=== PATIENT | female | born 1945 | race Caucasian/White ===

== ENCOUNTER → 2016-10-02 | Day surgery (SDC) | payer MEDICARE, OTHER ==
[~2016-10-02] VITALS: Ht 165.1 cm; Wt 108.0 kg
[~2016-10-02] MED LIST: ACET-71 PO; ACET30TAB PO; ALBU17IN INH; ALEV220T26 PO; ASPI32ECTA PO; ATEN50TA2 PO; AZO-95TA3 PO; BACITAB3 PO; BACT800T5 PO; BISA5TAB7 PO; CELE-19 PO; CIPR500T89 PO; CIPROFLOXACIN 400 MG in APPROPRIATE DILUENT 1 EA IV ONE; CONRAY-60 60% 50ML VIAL (Q9961) As Ordered ONE; CRAN250C2 PO; CRAN400C PO; CRANCAP PO; DESIOIN3 TOP; FURO20TA2 PO; GLYCOPYRROLATE INJ 0.2 MG/ML 2 ML VIAL As Ordered ONE; HYDROmorphone HCL 1 MG/ML SYRINGE (J1170) IV PRN; IBUPOTC PO; ICAPTAB8 PO; LASI20TA PO; LEVO150T7 PO; LIDOCAINE 2% INJ 100 MG/5 ML SDV (FOR ANES.) As Ordered ONE; LR 1,000 ML IV SCH; LUTE6TAB PO; MAPA325T2 PO; MELA1TAB15 PO; MELO7.5T6 PO; MIDAZOLAM INJ 2 MG/2 ML VIAL (J2250) As Ordered ONE; MOBI7.5T10 PO; NEOSTIGMINE 1MG/ML 5 ML SYRINGE (J2710) As Ordered ONE; NS 1,000 ML IV SCH; NYST10PW TOP; ONDANSETRON 4MG/2ML VIAL (J2405) As Ordered ONE; ONDANSETRON 4MG/2ML VIAL (J2405) IV PRN; PENT400T19 PO; PENT400T47 PO; PERCOCET 5MG/325MG TAB PO PRN; PERCOCET PO; PRESCAP6 PO; PROPOFOL 200 MG/20 ML VIAL As Ordered ONE; PYRI200T5 PO; ROCURONIUM BROMIDE 50 MG/5 ML VIAL As Ordered ONE; SENO8.6T2 PO; SYNT100T PO; SYNT175T2 PO; SYNT75TA PO; TYLETAB14 PO; Trental PO; VITA50003 PO; [UNRECOGNIZED DRUG - OTHER]; dexameTHASONE 4 MG/ML 1ML VIAL (J1100) As Ordered ONE; ePHEDrine SULFATE 25 MG/5 ML(5MG/ML) SYRINGE As Ordered ONE; fentaNYL 100 MCG/2 ML INJECTION (J3010) As Ordered ONE; fentaNYL 100 MCG/2 ML INJECTION (J3010) IV PRN
--- NOTE | 2016-10-02 09:34 | RO ---
DATE OF PROCEDURE: 10/02/2016 PREPROCEDURE DIAGNOSIS: Obstructing left ureteral stone. POSTPROCEDURE DIAGNOSIS: Obstructing left ureteral stone. PROCEDURE: Cystoscopy, left ureteroscopy with basket extraction of stone, left ureteral stent removal. SURGEON: Dr. Cm Salazar REFRIGERATION SYSTEMS INSTALLER: None. ANESTHESIA: General. OPERATIVE INDICATIONS: This is a 71-year-old female who was found to have an approximately 6 mm obstructing proximal left ureteral stone as well as possible urinary tract infection about a month and a half ago. She was brought to the operating room for a stent placement. She is brought here today to remove the stone. DESCRIPTION OF PROCEDURE: The patient was brought to the operating room where general anesthesia was induced. Prophylactic antibiotics were infused. She was then placed in dorsal lithotomy position and prepped and draped in the usual sterile fashion. A rigid cystoscope was then inserted into the urethral meatus and advanced into the bladder. The previously placed stent was then seen and withdrawn from the left ureter until the distal end of the stent was seen protruding from the urethral meatus. A wire was then advanced up the stent up into the left collecting system. The stent was then removed leaving the wire in place. The wire was then utilized to advance a ureteral access sheath up the left collecting system. The stylet was then removed and the wire was secured to the drape to serve as a safety wire. We then went up the ureteral access sheath with a flexible ureteroscope and the previously seen stone was actually pushed back up into the kidney. The kidney was thoroughly examined and no other stones were seen except for the 6 mm stone. The stone was then grasped with a basket and withdrawn from the left kidney. I once again examined the rest of the kidney and no additional stones were seen. The ureter appeared to be appropriately dilated and therefore the decision was made not to leave a stent. I then withdrew the ureteral access sheath along with the flexible ureteroscope and no additional stones were seen. The wire was then removed and the bladder emptied of all fluid. This marked the conclusion of the procedure. The patient was then taken out of dorsal lithotomy. The patient was awakened from anesthesia and transported to the recovery room in stable condition. ESTIMATED BLOOD LOSS: 0 mL. COMPLICATIONS: None. SPECIMEN: Left ureteral stone. PLAN: The patient will be seen in the clinic in 3-4 weeks for a postoperative visit and to discuss things that she can do to help prevent kidney stones. ITALOKisha
[2016-10-02 11:10] VITALS: BP 149/69
== END | disposition home or self-care (01) ==
LOC: M SDC 05:50
PROVIDERS: ATTEND Urology
DX: N20.1 Calculus of ureter (principal); I10 Essential (primary) hypertension; E78.00 Pure hypercholesterolemia, unspecified; E03.9 Hypothyroidism, unspecified; E66.9 Obesity, unspecified; M15.0 Primary generalized (osteo)arthritis; E55.9 Vitamin D deficiency, unspecified; L97.919 Non-pressure chronic ulcer of unspecified part of right lower leg with unspecified severity; I87.2 Venous insufficiency (chronic) (peripheral); R29.898 Other symptoms and signs involving the musculoskeletal system; M54.2 Cervicalgia; F41.9 Anxiety disorder, unspecified; R32 Unspecified urinary incontinence; Z88.0 Allergy status to penicillin; Z91.030 Bee allergy status; Z79.899 Other long term (current) drug therapy; Z79.82 Long term (current) use of aspirin; Z96.661 Presence of right artificial ankle joint; Z96.662 Presence of left artificial ankle joint; Z90.710 Acquired absence of both cervix and uterus; Z86.14 Personal history of Methicillin resistant Staphylococcus aureus infection; Z87.440 Personal history of urinary (tract) infections
CPT/HCPCS: 52352; 74420; 82360; 88300; J0744; J1100; J2250; J2405; J2710; J3010; Q9961

== ENCOUNTER → 2016-10-23 | Outpatient (REF) | payer MEDICARE, OTHER ==
[~2016-10-23] MED LIST changes: -CIPROFLOXACIN 400 MG in APPROPRIATE DILUENT 1 EA IV ONE; -CONRAY-60 60% 50ML VIAL (Q9961) As Ordered ONE; -GLYCOPYRROLATE INJ 0.2 MG/ML 2 ML VIAL As Ordered ONE; -HYDROmorphone HCL 1 MG/ML SYRINGE (J1170) IV PRN; -LIDOCAINE 2% INJ 100 MG/5 ML SDV (FOR ANES.) As Ordered ONE; -LR 1,000 ML IV SCH; -MIDAZOLAM INJ 2 MG/2 ML VIAL (J2250) As Ordered ONE; -NEOSTIGMINE 1MG/ML 5 ML SYRINGE (J2710) As Ordered ONE; -NS 1,000 ML IV SCH; -ONDANSETRON 4MG/2ML VIAL (J2405) As Ordered ONE; -ONDANSETRON 4MG/2ML VIAL (J2405) IV PRN; -PERCOCET 5MG/325MG TAB PO PRN; -PROPOFOL 200 MG/20 ML VIAL As Ordered ONE; -ROCURONIUM BROMIDE 50 MG/5 ML VIAL As Ordered ONE; -dexameTHASONE 4 MG/ML 1ML VIAL (J1100) As Ordered ONE; -ePHEDrine SULFATE 25 MG/5 ML(5MG/ML) SYRINGE As Ordered ONE; -fentaNYL 100 MCG/2 ML INJECTION (J3010) As Ordered ONE; -fentaNYL 100 MCG/2 ML INJECTION (J3010) IV PRN
== END ==
LOC: M LAB REF 12:53
PROVIDERS: ATTEND Surgery
DX: I87.312 Chronic venous hypertension (idiopathic) with ulcer of left lower extremity (principal)

== ENCOUNTER → 2016-11-05 | Outpatient (REF) | payer MEDICARE, OTHER | LOC: M SMT 15:05 | PROVIDERS: ATTEND Nurse Practitioner Family | DX: Z87.442 Personal history of urinary calculi (principal) ==

== ENCOUNTER → 2017-01-09 | Outpatient (REF) | payer MEDICARE, OTHER | LOC: M LAB REF 16:27 | PROVIDERS: ATTEND Surgery | DX: L97.229 Non-pressure chronic ulcer of left calf with unspecified severity (principal) ==

== ENCOUNTER → 2017-01-13 | Outpatient (REF) | payer MEDICARE, OTHER ==
[2017-01-13 20:23] LABS: BLOOD UREA NITROGEN 19 MG/DL (7-18); CREATININE FOR GFR 0.68 MG/DL (0.55-1.02); GLOMERULAR FILTRATION RATE > 60.0 (>39)
== END ==
LOC: M LAB REF 16:30
PROVIDERS: ATTEND Surgery
DX: I83.028 Varicose veins of left lower extremity with ulcer other part of lower leg (principal)

== ENCOUNTER → 2017-01-27 | Outpatient (REF) | payer MEDICARE, OTHER | LOC: M LAB REF 16:29 | PROVIDERS: ATTEND Surgery | DX: L97.221 Non-pressure chronic ulcer of left calf limited to breakdown of skin (principal) ==

== ENCOUNTER → 2017-02-06 | Outpatient (REF) | payer MEDICARE, OTHER | LOC: M LAB REF 16:14 | PROVIDERS: ATTEND Surgery | DX: I83.028 Varicose veins of left lower extremity with ulcer other part of lower leg (principal) ==

== ENCOUNTER → 2017-02-28 | Outpatient (REF) | payer MEDICARE, OTHER ==
[~2017-02-28] MED LIST changes: +AMBI10TA PO; +LEVO175T19 PO; +MELA5TAB21 PO; +MELO15TA4 PO
== END ==
LOC: M LAB REF 16:34
PROVIDERS: ATTEND Surgery
DX: R35.0 Frequency of micturition (principal)

== ENCOUNTER 2017-03-05 12:31 | Inpatient (IN) | payer MEDICARE, OTHER ==
[~2017-03-05] VITALS: Ht 162.6 cm; Wt 165.4 kg
[2017-03-05] MEDS: MULTIVITAMINS/MINERALS THERAP 1 TAB PO SCH (09:00)
[~2017-03-05 12:31] MED LIST changes: -AMBI10TA PO; -LEVO175T19 PO; -MELA5TAB21 PO; -MELO15TA4 PO
[2017-03-05] MEDS ORDERED: MEROPENEM INJ 2 GM in NS 100 ML IV SCH (13:45)
[2017-03-05] MEDS ORDERED: ALBUTEROL 90 MCG/ACT 8GM HFA INHALER INH PRN (13:45)
[2017-03-05 14:30] VITALS: BP 157/68
[2017-03-05 14:38] LABS: BASO % 0.7 % (0.0-1.0); EOS # 0.1 K/mm3 (0.0-0.50); EOS % 2.4 % (0.0-3.0); LARGE UNSTAINED CELL # 0.1 K/mm3 (0.0-0.4); LARGE UNSTAINED CELL % 1.9 % (0.0-4.0); LYMPH # 1.3 K/mm3 (1.5-4.5); LYMPH % 19.5 % (24.0-44.0); MEAN CORPUSCULAR HEMOGLOBIN 30.6 pg (27.0-33.0); MEAN CORPUSCULAR VOLUME 95.9 fl (80.0-96.0); MONO # 0.4 K/mm3 (0.0-0.8); MONO % 6.9 % (0.0-5.0); NEUTROPHILS % 68.5 % (36.0-66.0); PLATELET COUNT, AUTOMATED 297 k/mm3 (150-450); RED CELL DISTRIBUTION WIDTH 14.8 % (11.5-14.5); WHITE BLOOD COUNT 5.9 K/mm3 (4.0-10.0)
[2017-03-05] MEDS ORDERED: MELA5TAB21 PO (14:48)
[2017-03-05] MEDS ORDERED: LEVO175T19 PO (14:48)
[2017-03-05] MEDS ORDERED: AMBI10TA PO (14:48)
[2017-03-05] MEDS ORDERED: FURO20TA2 PO (15:00)
[2017-03-05] MEDS ORDERED: MELO15TA4 PO (15:00)
[2017-03-05 15:06] LABS: ANION GAP 4 MEQ/L (8-16); BLOOD UREA NITROGEN 28 MG/DL (7-18); CARBON DIOXIDE LEVEL 32 MEQ/L (21-32); CHLORIDE LEVEL 100 MEQ/L (98-107); CREATININE FOR GFR 0.89 MG/DL (0.55-1.02); GLOMERULAR FILTRATION RATE > 60.0 (>39); GLUCOSE, FASTING 130 MG/DL (83-110); POTASSIUM SERUM 4.4 MEQ/L (3.5-5.1); SODIUM LEVEL 136 MEQ/L (136-145)
[2017-03-05 15:08] LABS: ERYTHROCYTE SEDIMENTATION RATE 46 mm/hr (0-30)
--- NOTE | 2017-03-05 15:31 | CR ---
DATE OF CONSULTATION: 03/05/2017 CONSULTATION REPORT FOR: Dr. Hancock REASON FOR CONSULTATION: For evaluation of bilateral leg wounds. This is also a history and physical for the hospitalist service. HISTORY OF PRESENT ILLNESS: Stephanie is a pleasant, morbidly obese 71-year-old female who was referred to me by Dr. Hancock for evaluation of bilateral venous ulcers with chronic infection with Pseudomonas. The patient has had those ulcers for at least a couple years. She had been followed up with Dr. Alonso on a regular basis and was last seen on 01/01/2017. She had multiple different treatments done without improvement. She has been treated with compression wraps, application of EpiFix. The patient had wanted a second opinion and ended up going to Dr. Hancock's office. For the past two months, she has seen him and has had Unna Boots done. The states that the ulcers do look minimally better but repeated cultures have showed Pseudomonas and the patient has not been on antibiotics for over six months. In July of 2016, she had a kidney infection with a kidney stone and received antibiotics. After which, she felt the ulcers had improved but since the course was short, it did not have time for complete healing. She denies having any fever or chills. She has chronic leg pain. No nausea, vomiting, or diarrhea. She did have urinary symptoms with mostly frequency and some dysuria, and therefore a urine culture on 02/28/2017 was sent which was positive for Escherichia (E) coli, extended-spectrum beta-lactamase (ESBL) positive that has not been treated yet. On reviewing Dr. Alonso's note from 01/01/2017, she had refused some debridement and different treatment options. She is not interested in gastric bypass either. PAST MEDICAL HISTORY: Significant for: 1. Hypothyroidism. 2. Hypertension. 3. Morbid obesity. 4. Chronic infected venous ulcers. 5. Insomnia. 6. Kidney stones. 7. Bilateral infected venous ulcers. 8. Pyelonephritis. ALLERGIES: 1. PENICILLIN only after injectable. She has been penicillin tested and is not allergic to oral penicillin. 2. BEES swelling. PAST SURGICAL HISTORY: 1. Right knee replacement done in 2001. 2. Left knee replacement in 1994 done by [facility] 3. Kidney stone removed with stent on 08/10/2016 and stent removal on 10/02/2016. FAMILY HISTORY: Father at 79 and mother at 89 from kidney stone and heart disease. SOCIAL HISTORY: She is for 35 years. 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 She feels anxious about him taking care of her and doing IV antibiotics and she feels like she is a burden to him. She never smoked. No alcohol. She drinks coffee 1-2 a day. PHYSICAL EXAMINATION: On physical examination, she is a morbidly obese female in no acute distress, anxious. VITAL SIGNS: Weight was 322, body mass index (BMI) 55, blood pressure 156/90, heart rate 66, respiratory rate 18, temperature is 97.6, and oxygen saturation 96% on room air. HEART: Normal S1, S2, distant. No murmurs. LUNGS: Clear. No wheezes, rales, or rhonchi. ABDOMEN: Morbidly obese, soft, nontender. BACK: No costovertebral angle (CVA) or lumbosacral tenderness. EXTREMITIES: Right lower extremity calf has an ulcer measuring about 4 x 4.5 x 4 cm, superficial with significant greenish serous discharge on the dressing with minimal tenderness. There is hyperpigmented venous stasis changes with +1 edema of the right leg. The left leg has +2 pitting edema with a very large ulcer measuring about 25 cm x 10 cm with some fibrin slough, a lot of drainage as well that is moderate to heavy greenish in color but without odor. There is stasis dermatitis changes around the wound with hyperpigmentation. NEUROLOGIC EXAMINATION: Alert and oriented times three. She is able to move all extremities. She is sitting in a wheelchair though due to the long distance she had to walk to the doctor's office. MEDICATIONS: - Synthroid 175 mcg daily - atenolol 50 mg daily - Tylenol with Codeine one tablet every six hours as needed - melatonin 5 mg at bedtime - ICaps lutein vitamins - albuterol two puffs every six hours as needed for shortness of breath - multivitamin one tablet daily - meloxicam 7.5 mg daily - zinc 100 mg daily LABORATORY DATA: On 02/28/2017, a urine culture had ESBL E-colli resistant to ampicillin, cefazolin, levofloxacin, ceftriaxone, and ceftazidime as well as aztreonam, fosfomycin susceptible. Wound culture had Pseudomonas and E faecalis and that was done on 02/06/2017 of the left leg, 01/27/2017 similar culture, 01/13/2017 culture from the right leg had Pseudomonas aeruginosa, and left leg 01/09/2017 had again Pseudomonas, 10/23/2016 Pseudomonas culture. Susceptibilities of Pseudomonas are intermediate to levofloxacin and sensitive to rest of antibiotics. IMPRESSION: A 71-year-old morbidly obese female who has suffered from chronic venous stasis ulcers that have been infected for the past six months with Pseudomonas, have not healed in spite of multiple different conservative measures, debridement, EpiFix, skin grafting, Unna Boots, and is referred to me for evaluation of Pseudomonas infection and possible need for antibiotics. After all this conservative treatment, I think it would be worthwhile given her a trial of 14 days of IV meropenem for Pseudomonas infection and that should also cover for Enterococcus faecalis and urinary tract infection due to Escherichia (E) coli from extended-spectrum beta-lactamase (ESBL). PLAN: The patient will be admitted to the hospital for a peripherally inserted central catheter (PICC) line insertion to start IV meropenem 2 grams every eight hours and hopefully discharged home on meropenem 2 grams every 12 hours. Complete blood count (CBC), comprehensive profile, and C-reactive protein (CRP) was ordered as well as blood cultures. We will consult also Dr. Melendez for evaluation of vascular venous insufficiency. The patient is agreeable. The patient is admitted to the care of Dr. Evangelist Fischer who will be the admitting provider.
[2017-03-05] MEDS: ACETAMINOPH W/CODEINE #3 TAB UD PO PRN ×2 (15:34→19:50)
[2017-03-05] MEDS: HEPARIN SOD (PORCINE) 5000 UNITS/ML VIAL SQ SCH ×2 (15:35→21:34)
[2017-03-05] MEDS: MEROPENEM INJ 1 GM in D5W MINI-BAG PLUS 100 ML IV SCH ×2 (16:00→23:31)
[2017-03-05] MEDS ORDERED: ANALGESIC BALM CRM 120 GM TOP PRN (21:00)
[2017-03-05] MEDS: PERCOCET 5MG/325MG TAB PO PRN (21:35)
[2017-03-05 22:00] VITALS: BP 158/70
[2017-03-06] MEDS: HEPARIN SOD (PORCINE) 5000 UNITS/ML VIAL SQ SCH ×3 (05:30→21:06)
[2017-03-06] MEDS: PERCOCET 5MG/325MG TAB PO PRN ×3 (05:31→21:06)
[2017-03-06 06:00] VITALS: BP 150/74
[2017-03-06] MEDS ORDERED: LEVOTHYROXINE 0.075 MG TAB (75 MCG) PO SCH (06:00)
[2017-03-06] MEDS ORDERED: LEVOTHYROXINE 0.1 MG TAB (100 MCG) PO SCH (06:00)
[2017-03-06] MEDS: MEROPENEM INJ 1 GM in D5W MINI-BAG PLUS 100 ML IV SCH ×3 (08:00→23:05)
[2017-03-06 08:30] LABS: BASO % 0.7 % (0.0-1.0); EOS # 0.1 K/mm3 (0.0-0.50); EOS % 1.6 % (0.0-3.0); LARGE UNSTAINED CELL # 0.1 K/mm3 (0.0-0.4); LYMPH # 1.5 K/mm3 (1.5-4.5); LYMPH % 19.6 % (24.0-44.0); MEAN CORPUSCULAR HEMOGLOBIN 30.4 pg (27.0-33.0); MEAN CORPUSCULAR HGB CONC 32.3 g/dl (32.0-36.5); MEAN CORPUSCULAR VOLUME 94.3 fl (80.0-96.0); MONO # 0.5 K/mm3 (0.0-0.8); NEUTROPHILS # 4.8 K/mm3 (1.8-7.7); NEUTROPHILS % 69.2 % (36.0-66.0); PLATELET COUNT, AUTOMATED 297 k/mm3 (150-450); RED CELL DISTRIBUTION WIDTH 14.8 % (11.5-14.5)
[2017-03-06] MEDS ORDERED: MELOXICAM (MOBIC) 7.5 MG TAB PO SCH (09:00)
[2017-03-06 09:17] LABS: ALBUMIN 2.2 GM/DL (3.2-5.2); ALBUMIN/GLOBULIN RATIO 0.85 (1.00-1.93); ALKALINE PHOSPHATASE 84 U/L (45-117); ALT/SGPT 10 U/L (12-78); AST/SGOT 9 U/L (15-37); BILIRUBIN,TOTAL 0.6 MG/DL (0.2-1.0); BLOOD UREA NITROGEN 14 MG/DL (7-18); GLUCOSE, FASTING 81 MG/DL (83-110); TOTAL PROTEIN 4.8 GM/DL (6.4-8.2)
[2017-03-06 09:28] LABS: ANION GAP 9 MEQ/L (8-16); CALCIUM LEVEL 8.8 MG/DL (8.8-10.2); CARBON DIOXIDE LEVEL 26 MEQ/L (21-32); CHLORIDE LEVEL 101 MEQ/L (98-107); GLOMERULAR FILTRATION RATE > 60.0 (>39); POTASSIUM SERUM 4.4 MEQ/L (3.5-5.1); SODIUM LEVEL 136 MEQ/L (136-145)
[2017-03-06] MEDS: MELOXICAM (MOBIC) 7.5 MG TAB PO SCH (10:29)
[2017-03-06] MEDS: MULTIVITAMINS/MINERALS THERAP 1 TAB PO SCH (10:29)
[2017-03-06] MEDS: ATENOLOL 50 MG TAB PO SCH (10:29)
--- NOTE | 2017-03-06 11:52 | HPE ---
DATE OF ADMISSION: 03/05/2017 Ms. Sales' infectious disease doctor is Dr. Hastings. She has previously seen Dr. Alonso, and she has been following with Dr. Hancock for leg wounds. The chief complaint is leg wounds. Following is a summary of presentation. This is a 71-year-old female who has chronic bilateral lower extremity ulcers associated with venous stasis. She has previously seen Dr. Peralta and Dr. Alonso. She had a falling out with Dr. Alonso, as the patient requested antibiotics, which was deemed not to be clinically indicated. She has now been following with Dr. Hancock's office with Unna boots, which she has gone through a couple of. She has a large left lower extremity ulcer and small right lower extremity ulcer. She has complained of some dysuria. Went to Dr. Hastings's office in followup, and Dr. Hastings called for a direct admission, which she has implemented, and I am taking over as attending. PAST MEDICAL HISTORY: Is notable for hypothyroidism, hypertension, morbid obesity, venous stasis ulcers, insomnia, kidney stones, pyelonephritis. She has an allergy to PENICILLIN, BEES. SURGICAL HISTORY: Is notable for right knee replacement, left knee replacement, kidney stones with stenting. FAMILY HISTORY: Father at 79, mother at 89 from kidney stone and heart disease. Socially, she is . is at bedside. She is a nonsmoker. On physical examination, temperature is 97.1, pulse 99, respiratory rate 20, blood pressure 158/70, 96% on room air. She is awake, appropriately interactive, pleasantly conversant, morbidly obese with a body mass index (BMI) of 62.6. She remembers me from previous encounters. Neck is supple. No cervical or supraclavicular adenopathy. Breathing is symmetrical and rested. I-to-E ratio is 1:3. No wheezes, rales, or rhonchi. Heart is distant-sounding. Normal S1, S2. Abdomen: Is distended, soft, nontender. Left lower extremity is notable for a huge lower extremity ulcer, which is approximately 2/3 around the lateral circumference of her lower extremity. Is actively weeping serous fluid. Ulcer in the medial aspect of the right leg, which is not draining as profusely. Around both ulcers is no warmth, no particular tenderness. Dorsalis pedis pulses are noticed by Doppler bilaterally, as well as popliteal and posterior tibial, although posterior tibial is difficult to find through the amount of edema. White cell count 5.9, hemoglobin 13.4, and platelets 297. Repeated today showed a hemoglobin of 13 and a white cell count of 7. BUN initially 28, repeats to 14, creatinine 0.89, repeats to 0.4, CRP 3.69 which repeats to 0.54, albumin is 2.2. My assessment is as follows: This is a 71-year-old female with chronic lower extremity ulcers admitted for intravenous (IV) antibiotics and further workup. My plan will be as follows: 1. Infectious disease. I have discussed this case with Dr. Hastings in person. Plan for antibiotics and peripherally inserted central catheter (PICC) line as written by her. The patient has also been seen by Dr. Peralta. Dr. Peralta and I were at bedside last evening, and he is considering treatment for venous insufficiency, which has already been documented in her left leg, and which we will attempt to document in her right leg, as well, during the course of her stay. 2. The patient has hypothyroidism. Continue Synthroid. 3. The patient is noted to have low protein. Will further assess liver function, as well as renal function. 4. The patient has hypertension. 5. The patient has morbid obesity, which complicates care. 6. Deep venous thrombosis (DVT) prophylaxis has been ordered.
[2017-03-06 16:30] VITALS: BP 145/75
--- NOTE | 2017-03-06 16:59 | REP ---
Procedure: PICC line insertion with Chelsea-Ko The procedure was performed under the direct supervision of Dr. Zee. The risks and benefits of the procedure were explained to the patient and informed consent was obtained. The right basilic vein was localized using ultrasound guidance. The skin was prepped and draped in a sterile fashion. 2% lidocaine was used as a local anesthetic. Using ultrasound guidance the basilic vein was cannulated and a 0.018 guidewire was inserted and advanced to the SVC using fluoroscopic guidance. The needle was removed and a 4.5 Burkinan dilator and peel-away sheath was inserted over the guide wire. A 4.5 Burkinan single lumen catheter was cut to length of 43 cm. The dilator was removed and the catheter was inserted over the guide wire with the tip ending in the SVC. The peel-away sheath was removed and the catheter was flushed with heparinized saline as per Hospital protocol. The catheter was affixed to the skin and a sterile dressing was applied. The the patient tolerated the procedure well and there were no immediate complications. 0.2 minutes of fluoro time was utilized for this procedure. Reviewed by ORA Valdes 03/06/2017 04:00 PSigned by Reginaldo Zee MD 03/06/2017 04:51 P
--- NOTE | 2017-03-06 16:59 | REP ---
Right lower extremity duplex venous ultrasound: Reflux exam: History: Swelling, question DVT, reflux. Findings: There is severe soft tissue edema diffusely. This is somewhat limited visualization. The deep veins however are anechoic and felt to be compressible from the groin to the popliteal fossa in the right lower extremity. Color flow imaging is homogeneous. Spectral Doppler interrogation demonstrates intact respiratory variation in flow normal manual augmentation of flow. There is no evidence of DVT. Reflux evaluation: Exam quality was significantly limited due to body habitus and soft tissue edema. Reflux is seen in the deep system from the common femoral vein to the mid femoral vein. Reflux is seen at the greater saphenous vein proximally. Multiple collaterals are seen extending off the greater saphenous vein with reflux in a proximal collateral. The lesser saphenous vein was not seen. The greater saphenous vein was felt to be amendable to EVLT. Reflux greater than 0.5 seconds duration was seen in the common femoral vein. Reflux lasting 1.9 seconds was seen in a 6.1 mm greater saphenous vein at the saphenofemoral junction. At mid thigh the greater saphenous vein showed no evidence of reflux and measured 5.9 mm in AP dimension. At the knee the greater saphenous vein measures 5.4 millimeters in dimension. No reflux at this level. Reflux was seen in the femoral vein proximally and at midthigh level greater than 0.5 ml seconds in duration. No reflux observed in the distal femoral vein or in the popliteal vein. Impression: Reflux is observed as above. No evidence of DVT. Signed by Reginaldo Zee MD 03/07/2017 09:36 A
[2017-03-06] MEDS: SODIUM CHLORIDE 0.9% INJ 10 ML SYR IV SCH (18:33)
[2017-03-06 22:00] VITALS: BP 148/72
[2017-03-06] MEDS: SODIUM CHLORIDE 0.9% INJ 10 ML SYR IV PRN (23:57)
[2017-03-07] MEDS: PERCOCET 5MG/325MG TAB PO PRN ×4 (04:02→22:31)
[2017-03-07] MEDS: LEVOTHYROXINE 75MCG TABLET (0.075MG) PO SCH (05:41)
[2017-03-07] MEDS: HEPARIN SOD (PORCINE) 5000 UNITS/ML VIAL SQ SCH ×3 (05:41→22:31)
[2017-03-07] MEDS: SODIUM CHLORIDE 0.9% INJ 10 ML SYR IV SCH ×2 (05:41→16:39)
[2017-03-07] MEDS: LEVOTHYROXINE 100MCG TABLET (0.1MG) PO SCH (05:41)
[2017-03-07 06:00] VITALS: BP 140/65
[2017-03-07 06:02] LABS: MEAN CORPUSCULAR HGB CONC 32.6 g/dl (32.0-36.5); MEAN CORPUSCULAR VOLUME 95.1 fl (80.0-96.0); RED CELL DISTRIBUTION WIDTH 14.8 % (11.5-14.5); WHITE BLOOD COUNT 5.4 K/mm3 (4.0-10.0)
[2017-03-07 06:20] LABS: ANION GAP 5 MEQ/L (8-16); BLOOD UREA NITROGEN 20 MG/DL (7-18); CALCIUM LEVEL 8.1 MG/DL (8.8-10.2); CARBON DIOXIDE LEVEL 30 MEQ/L (21-32); CHLORIDE LEVEL 101 MEQ/L (98-107); CREATININE FOR GFR 0.62 MG/DL (0.55-1.02); GLUCOSE, FASTING 112 MG/DL (83-110); POTASSIUM SERUM 3.9 MEQ/L (3.5-5.1); SODIUM LEVEL 136 MEQ/L (136-145)
[2017-03-07 06:22] LABS: GLOMERULAR FILTRATION RATE > 60.0 (>39)
--- NOTE | 2017-03-07 06:22 | ECGEPIP ---
Stationary ECG Study [facility] Test Date: 2017-03-06 Pat Name: ZAINAB MCDONALD Department: Room: [place] [address] Gender: F Transportation Consultant: MADELYN : 1945 Requested By: EVANGELIST Fry Order Number: [id number] Reading MD: Evangelist Fischer Measurements Intervals Sparks Rate: 67 P: 30 WY: 175 QRS: 8 QRSD: 88 T: 45 QT: 389 QTc: 411 Interpretive Statements SINUS RHYTHM Electronically Signed On 03-07-2017 6:21:40 EDT by Evangelist Fischer
[2017-03-07] MEDS ORDERED: SODIUM TETRADECYL SULFATE(3%)30MG/ML 2ML VIAL (SOTRADECOL) As Ordered ONE (07:13)
[2017-03-07] MEDS ORDERED: LIDOCAINE 4% CREAM 5GM (LMX4) As Ordered ONE (07:14)
[2017-03-07] MEDS ORDERED: LIDOCAINE 2% MDV 20 ML VIAL As Ordered ONE (07:14)
[2017-03-07] MEDS: MEROPENEM INJ 1 GM in D5W MINI-BAG PLUS 100 ML IV SCH ×3 (08:09→23:37)
[2017-03-07] MEDS: MULTIVITAMINS/MINERALS THERAP 1 TAB PO SCH (08:09)
[2017-03-07] MEDS: ATENOLOL 50 MG TAB PO SCH (08:10)
[2017-03-07] MEDS: MELOXICAM (MOBIC) 7.5 MG TAB PO SCH (08:10)
[2017-03-07 08:41] LABS: INR 1.08
[2017-03-07] MEDS ORDERED: LORazepam 0.5 MG TAB As Ordered ONE ×2 (10:26→11:30)
--- NOTE | 2017-03-07 11:31 | IPNPDOC ---
Subjective Date Seen The patient was seen on 03/07/17. Subjective Chief Complaint/HPI The patient is a 71-year-old female admitted with a reason for visit of Infected Venous Ulcer, Uti Tseudomonas. Events since last encounter Feeling well, trying to keep legs elevated, tolerating diet, is worried about her procedure today, has some ache in left leg Constitutional: Denies: Chills, Fever Pulmonary: Denies: Dyspnea, Cough Cardiovascular: Denies: Chest Pain, Palpitations Gastrointestinal: Denies: Nausea, Vomiting, Abdominal Pain Objective Physical Examination General Exam: Positive: Alert, Cooperative, No Acute Distress Eye Exam: Negative: Sclera icteric ENT Exam: Positive: Mucous membr. moist/pink Neck Exam: Positive: Supple Chest Exam: Positive: Clear to auscultation, Negative: Rales, Rhonchi, Wheezing Heart Exam: Positive: Rate Normal, Regular Rhythm, Normal S1, Normal S2 Abdomen Exam: Positive: Normal bowel sounds, Soft, Negative: Tenderness Extremity Exam: Positive: Edema Assessment /Plan Problems (1) Venous ulcer of both lower extremities with varicose veins Status: Acute Problem Specific Plan: Consult Specialist Problem Text: With symptomatic venous reflux with pseudomonas infection seen by Dr. Hastings and Dr. Peralta plan for laser ablation of venous reflux today Continue with wound care Patient does not wish to follow with Dr. Alonso (2) HTN (hypertension) Status: Chronic Problem Text: reasonably controlled for current setting (3) Hypothyroidism Status: Chronic (4) Pseudomonas aeruginosa infection Status: Acute Problem Specific Plan: Consult Specialist (5) Morbid obesity with BMI of 60.0-69.9, adult Problem Text: complicates care VS, I&O, 24H, Fishbone Vital Signs/I&O Vital Signs Date Time Temp Pulse Resp B/P (MAP) Pulse Ox O2 Delivery O2 Flow Rate FiO2 03/07/17 10:21 20 03/07/17 09:51 Room Air 03/07/17 08:10 65 140/65 03/07/17 06:00 97.7 94 I&O- Last 24 Hours up to 6 AM 03/07/17 06:00 Intake Total 1540 ml Output Total 1650 ml Balance -110 ml Laboratory Data 24H LABS Laboratory Tests 2 03/07/17 05:47: Prothrombin Time 14.1, Prothromb Time International Ratio 1.08, Activated Partial Thromboplast Time 37.7H, Anion Gap 5L, Glomerular Filtration Rate > 60.0 , Blood Urea Nitrogen 20H, Creatinine 0.62#, Sodium Level 136, Potassium Level 3.9, Chloride Level 101, Carbon Dioxide Level 30, Calcium Level 8.1L, C- Reactive Protein, Quantitative 6.31H CBC/BMP Laboratory Tests 03/07/17 05:47 Red Blood Count 3.69 L, Mean Corpuscular Volume 95.1, Mean Corpuscular Hemoglobin 31.0, Mean Corpuscular Hemoglobin Concent 32.6, Red Cell Distribution Width 14.8 H, Calcium Level 8.1 L Microbiology Microbiology 03/05/17 Blood Culture - Preliminary, Resulted No growth after 24 hours . All specim... 03/05/17 MRSA Screen - Final, Complete FLRENETTA,FRANCO Fry MD Mar 07, 2017 11:31
[2017-03-07 13:20] VITALS: BP 152/68
--- NOTE | 2017-03-07 13:28 | REPKIM ---
INDICATION: Patient with symptomatic painful varicose veins, a large unhealing venous stasis ulcer and inflammation involving the left lower extremity presents for EVLT/possible sclerotherapy of the left lower extremity incompetent superficial veins. The previous duplex and reflux ultrasound of the left lower extremity showed significant reflux involving the GSV associated with collateral varicosities. No DVT. PROCEDURE: 1. Endovenous laser ablation therapy of the incompetent GSV on the left 2. Sclerotherapy of collateral varicosities below knee level leading to ulcer INTERVENTIONALIST: Belinda Peralta MD EBL: 5 mL MEDICATIONS: Ativan 1.5 mg po, Local Lidocaine and Sodium Tetradecyl Sulfate 3% diluted to 1.5% DEVICE USED: 45-CM VenaCure EVLT KipptJiff Lot#[id number] TECHNIQUE AND FINDINGS: Informed consent was obtained prior to the procedure. The patient was placed supine on the table. A time out was performed that verified correct procedure, site, side and materials available. Patient received a total of 1.5 mg Ativan po just before the procedure due to severe anxiety. Ultrasound examination was performed and focused on the saphenofemoral junction of the left leg. This showed significant reflux involving the greater saphenous vein as previously described. Significant collateral varicosities below knee level leading to the left leg ulcer also noted. The left lower extremity was prepped and draped in the usual sterile fashion. After local anesthesia with 1mL of lidocaine 1% at the skin, the incompetent greater saphenous vein at the knee level was accessed with a 21 gauge needle and a 0.018" wire followed by a 4 Polish sheath of the EVLT kit. The sheath was advanced over the wire to the saphenofemoral junction level and the laser fiber was advanced coaxially and its tip was positioned approximately 6 cm distal from the saphenofemoral junction. Tumescent anesthesia was given along this vein by using real-time ultrasonographic guidance and a 22 gauge spinal needle and a mixture of diluted lidocaine (12.5mL @ 2% in 237.5mL of normal saline). Endovenous laser ablation was applied along the greater saphenous vein using 6 Rascon in continuous mode for a total duration of 131 seconds. A total of 787 Joules was delivered. Because of significant varicosities extending below the knee level off the GSV, approximately 3 mL of sclerotherapy foam (1mL sodium tetradecyl sulfate diluted at 1.5 %) mixed with air at a ratio of 1:4 injected into the collateral varicosities below knee level. Compression was maintained. SteriStrips was applied on the skin, followed by wound dressing and Hieu wrap compression dressings. The patient tolerated the procedure well with no immediate complication. This procedure was performed with ultrasound guidance. Dr. Peralta was present. IMPRESSION: Successful treatment of symptomatic incompetent GSV in the left lower extremity by endovenous laser ablation. Significant collateral varicosities in the left lower extremity also treated with sclerotherapy as discussed above. PLAN: Pt was given post-procedure instructions. Plan for a follow-up duplex ultrasound of the left lower extremity to rule out DVT and post EVLT/ sclerotherapy evaluation in next several days. cc: MD Prince Daniel MD MTDD
[2017-03-07] MEDS ORDERED: LORazepam 0.5 MG TAB PO ONE (13:30)
[2017-03-07 13:35] VITALS: BP 142/63
--- NOTE | 2017-03-07 17:12 | IPN ---
DATE: 03/07/2017 Stephanie is a 71-year-old female who is here for infected venous ulcer with pseudomonas, bilateral feet. She also had a urinary tract infection (UTI) with extended-spectrum beta lactamase (ESBL) Escherichia (E) coli She underwent today laser treatment of left leg for venous insufficiency of saphenous vein by Dr. Peralta. She tolerated the procedure well. Procedure was an endovenous laser ablation of incompetent greater saphenous vein on the left side with sclerotherapy of collateral varicosities below the knee. PHYSICAL EXAMINATION: Temperature is 97.7, pulse 65, respirations 21, blood pressure 140/65, oxygen saturation 94% on room air. HEART: Normal S1, S2. No murmurs. LUNGS: Clear. Diminished breath sounds at the bases. ABDOMEN: Morbidly obese. EXTREMITIES: +2 pitting edema. I could not see the ulcers today, as she had Hieu wraps on both legs until Friday after the procedure that could not be removed. LABORATORY DATA: White count is 5.4, hemoglobin 11.5, hematocrit 35.1, platelets 243. ESR 46. Sodium 136, potassium 3.9, chloride 101, bicarbonate 30, BUN 20, creatinine 0.62, glucose 112, calcium 8.1, CRP 6.31. MEDICATIONS: Meropenem 1 gram IV every 8 hours. IMPRESSION: 1. Infected bilateral venous ulcers with pseudomonas, on IV meropenem, status post venous ablation of saphenous vein on the left. 2. Venous insufficiency of both legs. 3. Extended-spectrum beta lactamase Enterococcus (E) coli urinary tract infection. PLAN: Continue IV antibiotic. Peripherally inserted central catheter (PICC) line has been placed. Will arrange for home IV antibiotic as an outpatient for anticipated discharge on next Friday. Her will be her caregiver and will be able to administer her IV antibiotic. Treatment course would be a total of 14 days, and she will followup in my office in 7-10 days.
[2017-03-07 22:00] VITALS: BP 134/64
[2017-03-08] MEDS ORDERED: OXYBUTYNIN TD PRN (00:15)
[2017-03-08] MEDS: ACETAMINOPH W/CODEINE #3 TAB UD PO PRN ×3 (00:47→22:12)
[2017-03-08] MEDS: LEVOTHYROXINE 100MCG TABLET (0.1MG) PO SCH (05:25)
[2017-03-08] MEDS: LEVOTHYROXINE 75MCG TABLET (0.075MG) PO SCH (05:25)
[2017-03-08] MEDS: SODIUM CHLORIDE 0.9% INJ 10 ML SYR IV SCH ×2 (05:26→15:34)
[2017-03-08] MEDS: HEPARIN SOD (PORCINE) 5000 UNITS/ML VIAL SQ SCH ×3 (05:26→21:14)
[2017-03-08 05:41] LABS: MEAN CORPUSCULAR HEMOGLOBIN 30.4 pg (27.0-33.0); MEAN CORPUSCULAR HGB CONC 31.5 g/dl (32.0-36.5); MEAN CORPUSCULAR VOLUME 96.6 fl (80.0-96.0); RED CELL DISTRIBUTION WIDTH 14.7 % (11.5-14.5); WHITE BLOOD COUNT 6.1 K/mm3 (4.0-10.0)
[2017-03-08 06:00] VITALS: BP 135/62
[2017-03-08 06:06] LABS: ANION GAP 5 MEQ/L (8-16); BLOOD UREA NITROGEN 19 MG/DL (7-18); CALCIUM LEVEL 8.1 MG/DL (8.8-10.2); CARBON DIOXIDE LEVEL 30 MEQ/L (21-32); CHLORIDE LEVEL 102 MEQ/L (98-107); CREATININE FOR GFR 0.64 MG/DL (0.55-1.02); GLOMERULAR FILTRATION RATE > 60.0 (>39); GLUCOSE, FASTING 105 MG/DL (83-110); POTASSIUM SERUM 4.7 MEQ/L (3.5-5.1); SODIUM LEVEL 137 MEQ/L (136-145)
[2017-03-08] MEDS: MELOXICAM (MOBIC) 7.5 MG TAB PO SCH (08:44)
[2017-03-08] MEDS: ATENOLOL 50 MG TAB PO SCH (08:44)
[2017-03-08] MEDS: MULTIVITAMINS/MINERALS THERAP 1 TAB PO SCH (08:44)
[2017-03-08] MEDS: SODIUM CHLORIDE 0.9% INJ 10 ML SYR IV PRN ×2 (08:44→15:34)
[2017-03-08] MEDS: MEROPENEM INJ 1 GM in D5W MINI-BAG PLUS 100 ML IV SCH ×3 (08:44→23:54)
--- NOTE | 2017-03-08 13:03 | IPNPDOC ---
Subjective Date Seen The patient was seen on 03/08/17. Subjective Chief Complaint/HPI The patient is a 71-year-old female admitted with a reason for visit of Infected Venous Ulcer, Uti Tseudomonas. Events since last encounter Feeling well, no complaints, will not be in today as he is in [place] at drill, slept well last night Constitutional: Denies: Chills, Fever Pulmonary: Denies: Dyspnea, Cough Cardiovascular: Denies: Chest Pain, Palpitations Gastrointestinal: Denies: Nausea, Vomiting, Abdominal Pain Objective Physical Examination General Exam: Positive: Alert, Cooperative, No Acute Distress Eye Exam: Negative: Sclera icteric ENT Exam: Positive: Mucous membr. moist/pink Neck Exam: Positive: Supple Chest Exam: Positive: Clear to auscultation, Negative: Rales, Rhonchi, Wheezing Heart Exam: Positive: Rate Normal, Regular Rhythm, Normal S1, Normal S2 Abdomen Exam: Positive: Normal bowel sounds, Soft, Negative: Tenderness Extremity Exam: Positive: Edema (Left lower extremity wrapped, cdi) Assessment /Plan Problems (1) Venous ulcer of both lower extremities with varicose veins Status: Acute Problem Specific Plan: Consult Specialist Problem Text: With symptomatic venous reflux with pseudomonas infection seen by Dr. Hastings and Dr. Peralta had laser ablation of venous reflux 03/07/17 Continue with wound care per Dr. Peralta's instructions post op Patient does not wish to follow with Dr. Alonso (2) HTN (hypertension) Status: Chronic Problem Specific Plan: Monitor Clinically Problem Text: reasonably controlled for current setting (3) Hypothyroidism Status: Chronic (4) Pseudomonas aeruginosa infection Status: Acute Problem Specific Plan: Consult Specialist (5) Morbid obesity with BMI of 60.0-69.9, adult Problem Text: complicates care Plan/VTE VTE Prophylaxis Ordered?: Yes VS, I&O, 24H, Fishbone Vital Signs/I&O Vital Signs Date Time Temp Pulse Resp B/P (MAP) Pulse Ox O2 Delivery O2 Flow Rate FiO2 03/08/17 12:14 18 03/08/17 08:44 76 135/62 03/08/17 06:00 97.7 94 Room Air I&O- Last 24 Hours up to 6 AM 03/08/17 06:00 Intake Total 1760 ml Output Total 2001 ml Balance -241 ml Laboratory Data 24H LABS Laboratory Tests 2 03/08/17 05:20: Urine Appearance HAZY, Urine Color YELLOW, Urine pH 5.0, Urine Specific [place] 1.023, Urine Protein NEGATIVE, Urine Glucose (UA) NEGATIVE, Urine Ketones TRACEH , Urine Urobilinogen 0.2, Urine Bilirubin NEGATIVE, Urine Leukocyte Esterase TRACEH, Urine Blood NEGATIVE, Urine Nitrite NEGATIVE, Urine WBC (Auto) 18H, Urine RBC (Auto) 3, Urine Hyaline Casts (Auto) 0, Urine Bacteria (Auto) 1+H, Urine Squamous Epithelial Cells 0, Urine Mucus (Auto) SMALL, Urine Sperm (Auto) , Anion Gap 5L, Glomerular Filtration Rate > 60.0, Blood Urea Nitrogen 19H, Creatinine 0.64, Sodium Level 137, Potassium Level 4.7#, Chloride Level 102, Carbon Dioxide Level 30, Calcium Level 8.1L CBC/BMP Laboratory Tests 03/08/17 05:20 Red Blood Count 4.04, Mean Corpuscular Volume 96.6 H, Mean Corpuscular Hemoglobin 30.4, Mean Corpuscular Hemoglobin Concent 31.5 L, Red Cell Distribution Width 14.7 H, Calcium Level 8.1 L Microbiology Microbiology 03/05/17 Blood Culture - Preliminary, Resulted No Growth after 48 hours. All Specime... 03/05/17 MRSA Screen - Final, Complete FLRENETTA,FRANCO Fry MD Mar 08, 2017 13:02
[2017-03-08 14:00] VITALS: BP 134/60
[2017-03-08] MEDS: NYSTATIN 100,000 UNITS/GM TOPICAL PWD 15 GM TOP PRN (15:33)
[2017-03-08] MEDS: PERCOCET 5MG/325MG TAB PO PRN (21:13)
[2017-03-08 22:00] VITALS: BP 154/68
[2017-03-08] MEDS: zolPIDEM TARTRATE 10MG TAB PO PRN (22:11)
[2017-03-09] MEDS: LEVOTHYROXINE 75MCG TABLET (0.075MG) PO SCH (05:21)
[2017-03-09] MEDS: LEVOTHYROXINE 100MCG TABLET (0.1MG) PO SCH (05:21)
[2017-03-09] MEDS: SODIUM CHLORIDE 0.9% INJ 10 ML SYR IV SCH ×2 (05:21→09:17)
[2017-03-09] MEDS: HEPARIN SOD (PORCINE) 5000 UNITS/ML VIAL SQ SCH ×3 (05:21→21:59)
[2017-03-09 05:32] LABS: MEAN CORPUSCULAR HEMOGLOBIN 31.3 pg (27.0-33.0); MEAN CORPUSCULAR HGB CONC 33.2 g/dl (32.0-36.5); MEAN CORPUSCULAR VOLUME 94.4 fl (80.0-96.0); RED CELL DISTRIBUTION WIDTH 14.8 % (11.5-14.5); WHITE BLOOD COUNT 4.7 K/mm3 (4.0-10.0)
[2017-03-09 06:00] VITALS: BP 149/68
[2017-03-09 06:08] LABS: ANION GAP 7 MEQ/L (8-16); BLOOD UREA NITROGEN 15 MG/DL (7-18); CALCIUM LEVEL 8.2 MG/DL (8.8-10.2); CARBON DIOXIDE LEVEL 32 MEQ/L (21-32); CHLORIDE LEVEL 101 MEQ/L (98-107); CREATININE FOR GFR 0.55 MG/DL (0.55-1.02); GLOMERULAR FILTRATION RATE > 60.0 (>39); GLUCOSE, FASTING 106 MG/DL (83-110); POTASSIUM SERUM 4.3 MEQ/L (3.5-5.1); SODIUM LEVEL 140 MEQ/L (136-145)
[2017-03-09] MEDS: MULTIVITAMINS/MINERALS THERAP 1 TAB PO SCH (09:16)
[2017-03-09] MEDS: ATENOLOL 50 MG TAB PO SCH (09:16)
[2017-03-09] MEDS: MELOXICAM (MOBIC) 7.5 MG TAB PO SCH (09:16)
[2017-03-09] MEDS: MEROPENEM INJ 1 GM in D5W MINI-BAG PLUS 100 ML IV SCH ×2 (09:16→15:22)
--- NOTE | 2017-03-09 10:03 | IPNPDOC ---
Subjective Date Seen The patient was seen on 03/09/17. Subjective Chief Complaint/HPI The patient is a 71-year-old female admitted with a reason for visit of Infected Venous Ulcer, Uti Tseudomonas. Events since last encounter Feeling ok, didn't sleep well last night, tolerating diet, no pain in LLE, has been keeping legs elevated Objective Physical Examination General Exam: Positive: Alert, Cooperative, No Acute Distress Eye Exam: Negative: Sclera icteric ENT Exam: Positive: Mucous membr. moist/pink Neck Exam: Positive: Supple Chest Exam: Positive: Clear to auscultation, Negative: Rales, Rhonchi, Wheezing Heart Exam: Positive: Rate Normal, Regular Rhythm, Normal S1, Normal S2 Abdomen Exam: Positive: Normal bowel sounds, Soft, Negative: Tenderness Extremity Exam: Positive: Edema (Left lower extremity wrapped, some minimal staining to lateral aspect of dressing, dry) Assessment /Plan Problems (1) Venous ulcer of both lower extremities with varicose veins Status: Acute Problem Specific Plan: Consult Specialist Problem Text: With symptomatic venous reflux with pseudomonas infection seen by Dr. Hastings and Dr. Peralta had laser ablation of venous reflux 03/07/17 Continue with wound care per Dr. Peralta's instructions post op- Patient does not wish to follow with Dr. Alnoso On going wound care instructions/post op care for outpt setting will be planned tomorrow (2) HTN (hypertension) Status: Chronic Problem Specific Plan: Monitor Clinically Problem Text: reasonably controlled for current setting (3) Hypothyroidism Status: Chronic (4) Pseudomonas aeruginosa infection Status: Acute Problem Specific Plan: Consult Specialist (5) Morbid obesity with BMI of 60.0-69.9, adult Problem Text: complicates care Plan/VTE VTE Prophylaxis Ordered?: Yes VS, [facility]&O, [facility] Vital Signs Date Time Temp Pulse Resp B/P (MAP) Pulse Ox O2 Delivery O2 Flow Rate FiO2 03/09/17 09:16 74 149/68 03/09/17 06:00 98.0 16 97 Room Air I&O- Last 24 Hours up to 6 AM 03/09/17 06:00 Intake Total 2440 ml Output Total 2425 ml Balance 15 ml Laboratory Data 24H LABS Laboratory Tests 2 03/09/17 05:14: Anion Gap 7L, Glomerular Filtration Rate > 60.0, Blood Urea Nitrogen 15, Creatinine 0.55, Sodium Level 140, Potassium Level 4.3, Chloride Level 101, Carbon Dioxide Level 32, Calcium Level 8.2L CBC/BMP Laboratory Tests 03/09/17 05:14 Red Blood Count 3.70 L, Mean Corpuscular Volume 94.4, Mean Corpuscular Hemoglobin 31.3, Mean Corpuscular Hemoglobin Concent 33.2, Red Cell Distribution Width 14.8 H, Calcium Level 8.2 L Microbiology Microbiology 03/05/17 Blood Culture - Preliminary, Resulted No Growth after 72 hours. All specime... 03/05/17 MRSA Screen - Final, Complete FLFRANCO JACKSON MD Mar 09, 2017 10:03
[2017-03-09 14:00] VITALS: BP 135/64
[2017-03-09] MEDS: SODIUM CHLORIDE 0.9% INJ 10 ML SYR IV PRN (15:22)
[2017-03-09 22:00] VITALS: BP 151/65
[2017-03-09] MEDS: PERCOCET 5MG/325MG TAB PO PRN (22:03)
[2017-03-09] MEDS: zolPIDEM TARTRATE 10MG TAB PO PRN (22:31)
[2017-03-09] MEDS: NYSTATIN 100,000 UNITS/GM TOPICAL PWD 15 GM TOP PRN (22:31)
[2017-03-10] MEDS: MEROPENEM INJ 1 GM in D5W MINI-BAG PLUS 100 ML IV SCH ×3 (00:04→15:12)
[2017-03-10] MEDS: PERCOCET 5MG/325MG TAB PO PRN ×2 (03:36→21:47)
[2017-03-10] MEDS: SODIUM CHLORIDE 0.9% INJ 10 ML SYR IV SCH ×2 (05:28→17:38)
[2017-03-10] MEDS: LEVOTHYROXINE 100MCG TABLET (0.1MG) PO SCH (05:28)
[2017-03-10] MEDS: LEVOTHYROXINE 75MCG TABLET (0.075MG) PO SCH (05:28)
[2017-03-10] MEDS: HEPARIN SOD (PORCINE) 5000 UNITS/ML VIAL SQ SCH ×3 (05:29→21:48)
[2017-03-10 05:49] LABS: MEAN CORPUSCULAR HEMOGLOBIN 31.1 pg (27.0-33.0); MEAN CORPUSCULAR HGB CONC 32.8 g/dl (32.0-36.5); MEAN CORPUSCULAR VOLUME 94.8 fl (80.0-96.0); RED CELL DISTRIBUTION WIDTH 14.9 % (11.5-14.5); WHITE BLOOD COUNT 5.5 K/mm3 (4.0-10.0)
[2017-03-10 06:00] VITALS: BP 143/72
[2017-03-10 06:27] LABS: ANION GAP 5 MEQ/L (8-16); BLOOD UREA NITROGEN 14 MG/DL (7-18); CALCIUM LEVEL 8.5 MG/DL (8.8-10.2); CARBON DIOXIDE LEVEL 32 MEQ/L (21-32); CHLORIDE LEVEL 101 MEQ/L (98-107); CREATININE FOR GFR 0.57 MG/DL (0.55-1.02); GLOMERULAR FILTRATION RATE > 60.0 (>39); GLUCOSE, FASTING 104 MG/DL (83-110); POTASSIUM SERUM 4.4 MEQ/L (3.5-5.1); SODIUM LEVEL 138 MEQ/L (136-145)
[2017-03-10] MEDS: MULTIVITAMINS/MINERALS THERAP 1 TAB PO SCH (08:43)
[2017-03-10] MEDS: ATENOLOL 50 MG TAB PO SCH (08:43)
[2017-03-10] MEDS: MELOXICAM (MOBIC) 7.5 MG TAB PO SCH (08:43)
--- NOTE | 2017-03-10 11:06 | REP ---
Left lower extremity Duplex Doppler venous ultrasound: Real time compression and duplex Doppler interrogation of the left lower extremity deep venous system is performed. The left common femoral, superficial femoral and popliteal veins are fully compressible with transducer pressure and demonstrate normal spontaneous and phasic flow, without evidence of deep venous thrombosis. There is thrombus in the greater saphenous vein as expected, status post EVLT. Impression: No evidence of deep venous thrombosis of the left lower extremity femoral popliteal venous system. There is thrombus in the greater saphenous vein as expected, status post EVLT. Signed by Jerry Callahan MD 03/10/2017 10:58 A
--- NOTE | 2017-03-10 13:14 | IPNPDOC ---
Subjective Date Seen The patient was seen on 03/10/17. Subjective Chief Complaint/HPI The patient is a 71-year-old female admitted with a reason for visit of Infected Venous Ulcer, Uti Tseudomonas. Events since last encounter Feeling ok, slept well, left leg less uncomfortable, tolerating diet, worried that her will not be able to manage home antibiotics Constitutional: Denies: Chills, Fever Pulmonary: Denies: Dyspnea, Cough Cardiovascular: Denies: Chest Pain, Palpitations Gastrointestinal: Denies: Nausea, Vomiting, Abdominal Pain Objective Physical Examination General Exam: Positive: Alert, Cooperative, No Acute Distress Eye Exam: Negative: Sclera icteric Neck Exam: Positive: Supple Chest Exam: Positive: Clear to auscultation, Negative: Rales, Rhonchi, Wheezing Heart Exam: Positive: Rate Normal, Regular Rhythm, Normal S1, Normal S2 Abdomen Exam: Positive: Normal bowel sounds, Soft, Negative: Tenderness Extremity Exam: Positive: Edema, Other (At bedside while Dr. Peralta removes dressing- LLE shows granulation, less redness) Assessment /Plan Problems (1) Venous ulcer of both lower extremities with varicose veins Status: Acute Problem Specific Plan: Consult Specialist Problem Text: With symptomatic venous reflux with pseudomonas infection seen by Dr. Hastings and Dr. Peralta had laser ablation of venous reflux 03/07/17 Continue with wound care per Dr. Peralta's instructions post op- leave leg tightly wrapped until 03/13/17 Patient does not wish to follow with Dr. Alonso Planned for home IV abx- patient unsure whether will be able to accomplish this (2) HTN (hypertension) Status: Chronic Problem Specific Plan: Monitor Clinically Problem Text: still reasonably controlled for current setting (3) Hypothyroidism Status: Chronic (4) Pseudomonas aeruginosa infection Status: Acute Problem Specific Plan: Consult Specialist (5) Morbid obesity with BMI of 60.0-69.9, adult Problem Text: complicates care Plan/VTE VTE Prophylaxis Ordered?: Yes VS, I&O, 24H, Fishbone Vital Signs/I&O Vital Signs Date Time Temp Pulse Resp B/P (MAP) Pulse Ox O2 Delivery O2 Flow Rate FiO2 03/10/17 08:43 69 143/72 03/10/17 06:00 98.4 17 91 Room Air I&O- Last 24 Hours up to 6 AM 03/10/17 05:59 Intake Total 1280 ml Output Total 2850 ml Balance -1570 ml Laboratory Data 24H LABS Laboratory Tests 2 03/10/17 05:34: Anion Gap 5L, Glomerular Filtration Rate > 60.0, Blood Urea Nitrogen 14, Creatinine 0.57, Sodium Level 138, Potassium Level 4.4, Chloride Level 101, Carbon Dioxide Level 32, Calcium Level 8.5L, C-Reactive Protein, Quantitative 2.37H CBC/BMP Laboratory Tests 03/10/17 05:34 Red Blood Count 3.81 L, Mean Corpuscular Volume 94.8, Mean Corpuscular Hemoglobin 31.1, Mean Corpuscular Hemoglobin Concent 32.8, Red Cell Distribution Width 14.9 H, Calcium Level 8.5 L Microbiology Microbiology 03/05/17 Blood Culture - Preliminary, Resulted No Growth after 72 hours. All specime... 03/05/17 MRSA Screen - Final, Complete FLINTFRANCO MD Mar 10, 2017 13:14
[2017-03-10 14:00] VITALS: BP 123/58
[2017-03-10] MEDS: ACETAMINOPH W/CODEINE #3 TAB UD PO PRN (17:47)
[2017-03-10] MEDS ORDERED: MEROPENEM INJ 1 GM in D5W MINI-BAG PLUS 100 ML IV ONE (18:00)
--- NOTE | 2017-03-10 20:00 | IPN ---
DATE: 03/10/2017 Ms. Sales was seen today with Dr. Fischer being in the room and her nurse. She was crying, stating that her should not be in charge of her legs and IV antibiotics, that she feels she is a burden to him. She feels much better. She thinks her legs have improved. She has had Hieu wraps all the way to the thighs and the swelling has markedly diminished. There is very minimal drainage. The ulcers were not examined as her legs were wrapped and I had pictures to review. The leg ulcers have decreased in size. There is good granulation tissue. Edema is markedly better. Temperature is 97.1, pulse 64, respirations 18, blood pressure 123/58, oxygen saturation 91% on room air. LABORATORY DATA: White count is 5.5, hemoglobin 11.9, hematocrit 36.1, platelets 280. Sodium 138, potassium 4.4, chloride 101, bicarbonate 32, BUN 14, creatinine 0.57, glucose 104, calcium 8.5, CRP 2.37. IMPRESSION: 1. Extended Spectrum Beta Lactamase (ESBL) Escherichia (E) coli urinary tract infection (UTI), on meropenem. Symptoms have resolved. 2. Pseudomonas infected venous ulcer with venous insufficiency, on IV meropenem , doing better. Status post ultrasound-guided ablation of the left greater saphenous. PLAN: IV meropenem for 10 more days at home through a peripherally inserted central catheter (PICC) line. Infusion could be done at 05:30 and 7:30 at night by her . Will switch her to 2 grams every 8 hours starting tomorrow to make it easier on the who works from 6 to 6 at night. Also, she will be discharged home with a public health referral to do her Hieu wraps for both legs up to the thighs on Friday, Friday, Friday. RACHEL
[2017-03-10] MEDS: zolPIDEM TARTRATE 10MG TAB PO PRN (21:45)
[2017-03-10] MEDS: NYSTATIN 100,000 UNITS/GM TOPICAL PWD 15 GM TOP PRN (21:48)
[2017-03-10 22:00] VITALS: BP 150/69
[2017-03-11] MEDS: PERCOCET 5MG/325MG TAB PO PRN ×2 (04:55→23:04)
[2017-03-11] MEDS: LEVOTHYROXINE 100MCG TABLET (0.1MG) PO SCH (05:36)
[2017-03-11] MEDS: HEPARIN SOD (PORCINE) 5000 UNITS/ML VIAL SQ SCH ×3 (05:36→21:19)
[2017-03-11] MEDS: LEVOTHYROXINE 75MCG TABLET (0.075MG) PO SCH (05:36)
[2017-03-11] MEDS: SODIUM CHLORIDE 0.9% INJ 10 ML SYR IV SCH ×2 (05:37→18:45)
[2017-03-11 06:00] VITALS: BP 146/69
[2017-03-11 06:06] LABS: MEAN CORPUSCULAR HEMOGLOBIN 30.9 pg (27.0-33.0); MEAN CORPUSCULAR HGB CONC 32.5 g/dl (32.0-36.5); MEAN CORPUSCULAR VOLUME 95.2 fl (80.0-96.0); RED CELL DISTRIBUTION WIDTH 14.7 % (11.5-14.5); WHITE BLOOD COUNT 5.1 K/mm3 (4.0-10.0)
[2017-03-11] MEDS: MEROPENEM INJ 2 GM in NS 100 ML IV SCH ×2 (06:17→18:45)
[2017-03-11 06:35] LABS: ANION GAP 5 MEQ/L (8-16); BLOOD UREA NITROGEN 14 MG/DL (7-18); CALCIUM LEVEL 8.5 MG/DL (8.8-10.2); CARBON DIOXIDE LEVEL 32 MEQ/L (21-32); CHLORIDE LEVEL 101 MEQ/L (98-107); CREATININE FOR GFR 0.54 MG/DL (0.55-1.02); GLOMERULAR FILTRATION RATE > 60.0 (>39); GLUCOSE, FASTING 115 MG/DL (83-110); POTASSIUM SERUM 4.2 MEQ/L (3.5-5.1); SODIUM LEVEL 138 MEQ/L (136-145)
[2017-03-11] MEDS: MULTIVITAMINS/MINERALS THERAP 1 TAB PO SCH (09:52)
[2017-03-11] MEDS: MELOXICAM (MOBIC) 7.5 MG TAB PO SCH (09:52)
[2017-03-11] MEDS: ACETAMINOPH W/CODEINE #3 TAB UD PO PRN (09:52)
[2017-03-11] MEDS: ATENOLOL 50 MG TAB PO SCH (09:56)
--- NOTE | 2017-03-11 12:29 | IPNPDOC ---
Subjective Date Seen The patient was seen on 03/11/17. Subjective Chief Complaint/HPI The patient is a 71-year-old female admitted with a reason for visit of Infected Venous Ulcer, Uti Tseudomonas. General: Denies: ROS Unobtainable, Chills, Night Sweats, Fatigue, Malaise, Normal Appetite, Other Symptoms Constitutional: Denies: Chills, Fever, Malaise, Night Sweats, Weakness, Fatigue , Weight Loss, Lethargy, Other Eyes: Denies: Pain, Vision change, Conjunctivae inflammation, Eyelid inflammation, Redness, Other ENT: Denies: Head Aches, Ear Pain, Dysphagia, Sinus Congestion, Post Nasal Drip , Sore Throat, Epistaxis, Other Symptoms Skin: Denies: Rash, Lesions, Jaundice, Bruising, Itching, Dry, Breakdown, Nail Changes, Other Pulmonary: Denies: Dyspnea, Cough, Pleuritic Chest Pain, Other Symptoms Cardiovascular: Denies: Chest Pain, Palpitations, Orthopnea, Paroxysmal Noc. Dyspnea, Edema, Lt Headedness, Other Symptoms Gastrointestinal: Denies: Nausea, Vomiting, Abdominal Pain, Diarrhea, Constipation, Melena, Hematochezia, Other Symptoms Objective Physical Examination General Exam: Positive: Alert, Cooperative, No Acute Distress Eye Exam: Negative: Sclera icteric Neck Exam: Positive: Supple Chest Exam: Positive: Clear to auscultation, Negative: Rales, Rhonchi, Wheezing Heart Exam: Positive: Rate Normal, Regular Rhythm, Normal S1, Normal S2 Abdomen Exam: Positive: Normal bowel sounds, Soft, Other (obese), Negative: Tenderness Extremity Exam: Positive: Edema, Other (B/L LE dressings in place) Assessment /Plan Problems (1) Venous ulcer of both lower extremities with varicose veins Status: Acute Problem Specific Plan: Consult Specialist Problem Text: With symptomatic venous reflux with pseudomonas infection seen by Dr. Hastings and Dr. Peralta had laser ablation of venous reflux 03/07/17 Continue with wound care per Dr. Peralta's instructions post op- leave leg tightly wrapped until 03/13/17 Patient does not wish to follow with Dr. Alonso Planned for home IV abx- patient unsure whether will be able to accomplish this (2) HTN (hypertension) Status: Chronic Problem Specific Plan: Monitor Clinically Problem Text: still reasonably controlled for current setting (3) Hypothyroidism Status: Chronic (4) Pseudomonas aeruginosa infection Status: Acute Problem Specific Plan: Consult Specialist (5) Morbid obesity with BMI of 60.0-69.9, adult Problem Text: complicates care Plan/VTE VTE Prophylaxis Ordered?: Yes Plan Diet: Continue Current Activity: Continue Current Diagnostics: Repeat Labs in AM Anticipated Discharge: Home With Services Plan to continue Meropenem till , will receive am dose inpatient, discharge home with services for continued IV antibiotics. Plan for dressing changes Fri, Fri, Fri. VS, I&O, 24H, Fishbone Vital Signs/I&O Vital Signs Date Time Temp Pulse Resp B/P (MAP) Pulse Ox O2 Delivery O2 Flow Rate FiO2 03/11/17 11:47 18 03/11/17 09:56 68 144/62 03/11/17 06:00 97.1 92 Room Air I&O- Last 24 Hours up to 6 AM 03/11/17 06:00 Intake Total 1380 ml Output Total 2700 ml Balance -1320 ml Laboratory Data 24H LABS Laboratory Tests 2 03/11/17 05:51: Anion Gap 5L, Glomerular Filtration Rate > 60.0, Blood Urea Nitrogen 14, Creatinine 0.54L, Sodium Level 138, Potassium Level 4.2, Chloride Level 101, Carbon Dioxide Level 32, Calcium Level 8.5L CBC/BMP Laboratory Tests 03/11/17 05:51 Red Blood Count 3.80 L, Mean Corpuscular Volume 95.2, Mean Corpuscular Hemoglobin 30.9, Mean Corpuscular Hemoglobin Concent 32.5, Red Cell Distribution Width 14.7 H, Calcium Level 8.5 L Microbiology Microbiology 03/05/17 Blood Culture - Final, Complete NO GROWTH AFTER 5 DAYS 03/05/17 MRSA Screen - Final, Complete HAMLET GURROLA MD Mar 11, 2017 12:29
[2017-03-11 14:00] VITALS: BP 137/62
[2017-03-11 22:00] VITALS: BP 152/68
[2017-03-12] MEDS: LEVOTHYROXINE 100MCG TABLET (0.1MG) PO SCH (05:31)
[2017-03-12] MEDS: LEVOTHYROXINE 75MCG TABLET (0.075MG) PO SCH (05:31)
[2017-03-12] MEDS: MEROPENEM INJ 2 GM in NS 100 ML IV SCH ×2 (05:32→18:21)
[2017-03-12] MEDS: ACETAMINOPH W/CODEINE #3 TAB UD PO PRN ×2 (05:32→14:05)
[2017-03-12] MEDS: SODIUM CHLORIDE 0.9% INJ 10 ML SYR IV SCH ×2 (05:34→18:22)
[2017-03-12] MEDS: HEPARIN SOD (PORCINE) 5000 UNITS/ML VIAL SQ SCH ×3 (05:34→21:53)
[2017-03-12 06:00] VITALS: BP 144/78
[2017-03-12 06:21] LABS: MEAN CORPUSCULAR HEMOGLOBIN 31.1 pg (27.0-33.0); MEAN CORPUSCULAR HGB CONC 32.3 g/dl (32.0-36.5); MEAN CORPUSCULAR VOLUME 96.3 fl (80.0-96.0); RED CELL DISTRIBUTION WIDTH 14.6 % (11.5-14.5); WHITE BLOOD COUNT 4.9 K/mm3 (4.0-10.0)
[2017-03-12 06:33] LABS: ANION GAP 4 MEQ/L (8-16); BLOOD UREA NITROGEN 16 MG/DL (7-18); CALCIUM LEVEL 8.7 MG/DL (8.8-10.2); CARBON DIOXIDE LEVEL 31 MEQ/L (21-32); CHLORIDE LEVEL 100 MEQ/L (98-107); CREATININE FOR GFR 0.57 MG/DL (0.55-1.02); GLOMERULAR FILTRATION RATE > 60.0 (>39); GLUCOSE, FASTING 106 MG/DL (83-110); POTASSIUM SERUM 4.2 MEQ/L (3.5-5.1); SODIUM LEVEL 135 MEQ/L (136-145)
[2017-03-12] MEDS ORDERED: LR 1,000 ML IV ONE (07:15)
[2017-03-12] MEDS: MELOXICAM (MOBIC) 7.5 MG TAB PO SCH (09:47)
[2017-03-12] MEDS: MULTIVITAMINS/MINERALS THERAP 1 TAB PO SCH (09:47)
[2017-03-12] MEDS: ATENOLOL 50 MG TAB PO SCH (09:47)
--- NOTE | 2017-03-12 10:47 | IPNPDOC ---
Subjective Date Seen The patient was seen on 03/12/17. Subjective Chief Complaint/HPI The patient is a 71-year-old female admitted with a reason for visit of Infected Venous Ulcer, Uti Tseudomonas. General: Denies: ROS Unobtainable, Chills, Night Sweats, Fatigue, Malaise, Normal Appetite, Other Symptoms Constitutional: Denies: Chills, Fever, Malaise, Night Sweats, Weakness, Fatigue , Weight Loss, Lethargy, Other Eyes: Denies: Pain, Vision change, Conjunctivae inflammation, Eyelid inflammation, Redness, Other ENT: Denies: Head Aches, Ear Pain, Dysphagia, Sinus Congestion, Post Nasal Drip , Sore Throat, Epistaxis, Other Symptoms Skin: Denies: Rash, Lesions, Jaundice, Bruising, Itching, Dry, Breakdown, Nail Changes, Other Pulmonary: Denies: Dyspnea, Cough, Pleuritic Chest Pain, Other Symptoms Cardiovascular: Denies: Chest Pain, Palpitations, Orthopnea, Paroxysmal Noc. Dyspnea, Edema, Lt Headedness, Other Symptoms Gastrointestinal: Denies: Nausea, Vomiting, Abdominal Pain, Diarrhea, Constipation, Melena, Hematochezia, Other Symptoms Objective Physical Examination General Exam: Positive: Alert, Cooperative, No Acute Distress Eye Exam: Negative: Sclera icteric Neck Exam: Positive: Supple Chest Exam: Positive: Clear to auscultation, Negative: Rales, Rhonchi, Wheezing Heart Exam: Positive: Rate Normal, Regular Rhythm, Normal S1, Normal S2 Abdomen Exam: Positive: Normal bowel sounds, Soft, Other (obese), Negative: Tenderness Extremity Exam: Positive: Edema, Other (B/L LE dressings in place) Assessment /Plan Problems (1) Venous ulcer of both lower extremities with varicose veins Status: Acute Problem Specific Plan: Consult Specialist Problem Text: With symptomatic venous reflux with pseudomonas infection seen by Dr. Hastings and Dr. Peralta had laser ablation of venous reflux 03/07/17 Continue with wound care per Dr. Peralta's instructions post op- leave leg tightly wrapped until 03/13/17 Patient does not wish to follow with Dr. Alonso Planned for home IV abx (2) HTN (hypertension) Status: Chronic Problem Specific Plan: Monitor Clinically Problem Text: still reasonably controlled for current setting (3) Hypothyroidism Status: Chronic (4) Pseudomonas aeruginosa infection Status: Acute Problem Specific Plan: Consult Specialist (5) Morbid obesity with BMI of 60.0-69.9, adult Problem Text: complicates care Plan/VTE VTE Prophylaxis Ordered?: Yes Plan Diet: Continue Current Activity: Continue Current Diagnostics: Repeat Labs in AM Anticipated Discharge: Home With Services Plan for am dosing meropenem in hospital tomorrow, discharge home with services. Antibiotic infusion at home administered by , end date . Dressing changes M,W,F - GARRY wraps to thighs. VS, I&O, 24H, Fishbone Vital Signs/I&O Vital Signs Date Time Temp Pulse Resp B/P (MAP) Pulse Ox O2 Delivery O2 Flow Rate FiO2 03/12/17 09:47 67 150/70 03/12/17 06:05 16 03/12/17 06:00 96.9 93 Room Air I&O- Last 24 Hours up to 6 AM 03/12/17 06:00 Intake Total 900 ml Output Total 1000 ml Balance -100 ml Laboratory Data 24H LABS Laboratory Tests 2 03/12/17 06:01: Anion Gap 4L, Glomerular Filtration Rate > 60.0, Blood Urea Nitrogen 16, Creatinine 0.57, Sodium Level 135L, Potassium Level 4.2, Chloride Level 100, Carbon Dioxide Level 31, Calcium Level 8.7L CBC/BMP Laboratory Tests 03/12/17 06:01 Red Blood Count 3.81 L, Mean Corpuscular Volume 96.3 H, Mean Corpuscular Hemoglobin 31.1, Mean Corpuscular Hemoglobin Concent 32.3, Red Cell Distribution Width 14.6 H, Calcium Level 8.7 L Microbiology Microbiology 03/05/17 Blood Culture - Final, Complete NO GROWTH AFTER 5 DAYS 03/05/17 MRSA Screen - Final, Complete HAMLET GURROLA MD Mar 12, 2017 10:47
[2017-03-12 14:00] VITALS: BP 130/70
[2017-03-12] MEDS: zolPIDEM TARTRATE 10MG TAB PO PRN (21:54)
[2017-03-12] MEDS: PERCOCET 5MG/325MG TAB PO PRN (21:54)
[2017-03-12 22:00] VITALS: BP 144/69
[2017-03-13] MEDS: ACETAMINOPH W/CODEINE #3 TAB UD PO PRN (02:30)
[2017-03-13] MEDS: LEVOTHYROXINE 75MCG TABLET (0.075MG) PO SCH (05:26)
[2017-03-13] MEDS: HEPARIN SOD (PORCINE) 5000 UNITS/ML VIAL SQ SCH (05:27)
[2017-03-13] MEDS: SODIUM CHLORIDE 0.9% INJ 10 ML SYR IV SCH (05:27)
[2017-03-13] MEDS: LEVOTHYROXINE 100MCG TABLET (0.1MG) PO SCH (05:27)
[2017-03-13] MEDS: MEROPENEM INJ 2 GM in NS 100 ML IV SCH (05:28)
[2017-03-13] MEDS: SODIUM CHLORIDE 0.9% INJ 10 ML SYR IV PRN (05:28)
[2017-03-13 06:00] VITALS: BP 136/67
[2017-03-13 06:13] LABS: MEAN CORPUSCULAR HEMOGLOBIN 30.2 pg (27.0-33.0); MEAN CORPUSCULAR HGB CONC 31.5 g/dl (32.0-36.5); RED CELL DISTRIBUTION WIDTH 14.5 % (11.5-14.5); WHITE BLOOD COUNT 4.9 K/mm3 (4.0-10.0)
[2017-03-13 06:33] LABS: ANION GAP 3 MEQ/L (8-16); BLOOD UREA NITROGEN 18 MG/DL (7-18); CALCIUM LEVEL 8.7 MG/DL (8.8-10.2); CARBON DIOXIDE LEVEL 32 MEQ/L (21-32); CHLORIDE LEVEL 99 MEQ/L (98-107); CREATININE FOR GFR 0.51 MG/DL (0.55-1.02); GLOMERULAR FILTRATION RATE > 60.0 (>39); GLUCOSE, FASTING 99 MG/DL (83-110); POTASSIUM SERUM 4.3 MEQ/L (3.5-5.1); SODIUM LEVEL 134 MEQ/L (136-145)
[2017-03-13] MEDS ORDERED: MELO7.5T6 PO (07:37)
[2017-03-13] MEDS ORDERED: NYST10PW TOP (07:42)
[2017-03-13] MEDS ORDERED: PERCOCET PO (07:42)
[2017-03-13 10:11] VITALS: BP 143/67
[2017-03-13] MEDS: ATENOLOL 50 MG TAB PO SCH (10:11)
[2017-03-13] MEDS: MULTIVITAMINS/MINERALS THERAP 1 TAB PO SCH (10:12)
[2017-03-13] MEDS: MELOXICAM (MOBIC) 7.5 MG TAB PO SCH (10:12)
[2017-03-13 10:30] VITALS: BP 143/67
--- NOTE | 2017-03-13 16:19 | DS.PDOC ---
Discharge Summary General Date of Admission Mar 05, 2017 at 14:04 Date of Discharge Mar 13, 2017 Primary Care Physician: Miles Renee [facility] Attending Physician: HAMLET GURROLA MD Specialist/Consultants Involve: Prince Hastings MD Specialist/Consultants Involve Belinda Peralta MD Discharge Summary PROCEDURES PERFORMED DURING STAY: Indigo venous laser ablation of incompetent greater saphenous vein on left side with sclerotherapy of collateral varicosities below the knee ADMITTING DIAGNOSES: 1. Infected venous ulcer. 2. Venous insufficiency 3. Urinary Tract Infection DISCHARGE DIAGNOSES: 1. Venous ulcer of both lower extremities with varicose veins. 2. Hypertension. 3. Pseudomonas aeruginosa's Urinary Tract Infection. COMPLICATIONS/CHIEF COMPLAINT: Infected Venous Ulcer, UTI Pseudomonas. HISTORY OF PRESENT ILLNESS: Patient is a 71-year-old female with past medical history of hypothyroidism, hypertension, morbid obesity, venous stasis ulcers presents with an infected venous ulcer. Patient has bilateral lower extremity ulcers associated with venous stasis. Patient previously seen Dr. Peralta and Dr. Alonso. Patient is no longer following with Dr. Alonso. She is not following with Dr. Hancock's office for Unna boots. There is a large left lower extremity ulcer and a small right pressure ulcer. Patient was having some dysuria upon admission. On day of admission patient went to Dr. Hastings's office for a follow-up appointment. She was then sent directly to the hospital for direct admit. HOSPITAL COURSE: On the hospital patient was worked up for her infected venous ulcers. Patient had a ultrasound of her left lower extremity which revealed no evidence of DVT but did show some reflux in her veins. Patient was seen by Dr. Peralta interventional radiologists. Laser ablation was performed on the greater saphenous vein of the left lower extremity. Patient is also seen by Dr. Hastings of infectious disease for her infected ulcer. Patient was started on meropenem IV 2 g every 12 hours. A PICC line was inserted. Patient will continue to have this outpatient. Patient received a total of 8 days prior to discharge. Patient's dysuria was worked up and was found to have extended spectrum beta lactamase Escherichia coli urinary tract infection. The meropenem is also treating this. Her venous ulcers are wrapped with Hieu wraps to compress both legs. This is helped minimize swelling. Drainage from the ulcers have decreased. The leg ulcers have decreased in size and there is now granulation tissue. DISCHARGE MEDICATIONS: Please see below. ALLERGIES: Please see below. PHYSICAL EXAMINATION ON DISCHARGE: VITAL SIGNS: Please see below. GENERAL: Alert and orientated. Comfortable cooperative. No acute distress. HEENT: No signs of injury. No rhinorrhea. Extraocular muscles intact. NECK: No enlarged lymph nodes. CARDIOVASCULAR EXAMINATION: Normal S1 and S2 no clicks rubs gallops or murmurs. RESPIRATORY EXAMINATION: Clear to auscultation. No rales or wheezing. ABDOMINAL EXAMINATION: Soft nontender. Nondistended. Bowel sounds heard auscultation. EXTREMITIES: Radial pulses 2 out of 4 bilaterally. Bilateral lower extremities wrapped with Hieu bandage. SKIN: No new lesions or rashes. NEUROLOGICAL EXAMINATION: Speech intact. PSYCHIATRIC EXAMINATION: Normal affect. LABORATORY DATA: Please see below. IMAGING: Duplex US of left lower extremity 03/06/17 revealed Reflux is seen in the deep system from the common femoralvein to the mid femoral vein. Reflux is seen at the greater saphenous veinproximally. Multiplecollaterals are seen extending off the greater saphenousvein with reflux in a proximal collateral. The lesser saphenous vein was notseen. The greater saphenous vein was felt to be amendable to EVLT. Duplex US of left lower extremity 03/10/17, after laser ablation revealed No evidence of deep venous thrombosis of the left lower extremity femoral popliteal venous system. There is thrombus in the greater saphenous vein as expected, status post EVLT. PROGNOSIS: Patient is a 71-year-old female with past history significant for hypothyroidism, hypertension, morbid obesity, venous stasis and ulcer. Presented with an infected venous stasis ulcer. Patient is currently stable. Patient will be sent home with dressing changes and IV antibiotics. Patient is a follow-up with primary care doctor and Dr. Hastings. ACTIVITY: As tolerated. Legs elevated while sitting. DIET: 2 g sodium diet DISCHARGE PLAN: Plan is to discharge the patient home with [facility]. was trained today on giving IV antibiotics. Patient will be sent home to finish course of IV meropenem. Patient receive a total 14 days. Patient will also have weekly dressing changes of her Hieu wraps for her ulcers bilateral lower extremities.. These are to be changed once a week. DISPOSITION: 01 Home, Self-Care. DISCHARGE INSTRUCTIONS: 1. Follow-up with primary care Dr. Miles Wheat in the next 1-3 days. 2. Follow up with Dr. Goss, infectious disease in the next 5-7 days.. 3. Return to the ER if symptoms worsen.. DISCHARGE CONDITION: Stable. TIME SPENT ON DISCHARGE: Greater than 30 minutes. Vital Signs/I&Os Vital Signs Date Time Temp Pulse Resp B/P (MAP) Pulse Ox O2 Delivery O2 Flow Rate FiO2 03/13/17 10:30 68 143/67 (92) 93 Room Air 03/13/17 06:00 97.1 19 I&O- Last 24 Hours up to 6 AM 03/13/17 06:00 Intake Total 1200 ml Output Total 0 ml Balance 1200 ml Laboratory Data Labs 24H Laboratory Tests 2 03/13/17 06:01: Anion Gap 3L, Glomerular Filtration Rate > 60.0, Blood Urea Nitrogen 18, Creatinine 0.51L, Sodium Level 134L, Potassium Level 4.3, Chloride Level 99, Carbon Dioxide Level 32, Calcium Level 8.7L CBC/BMP Laboratory Tests 03/13/17 06:01 Red Blood Count 3.93 L, Mean Corpuscular Volume 96.0, Mean Corpuscular Hemoglobin 30.2, Mean Corpuscular Hemoglobin Concent 31.5 L, Red Cell Distribution Width 14.5, Calcium Level 8.7 L Microbiology Microbiology 03/05/17 Blood Culture - Final, Complete NO GROWTH AFTER 5 DAYS 03/05/17 MRSA Screen - Final, Complete Discharge Medications Scheduled (Icaps Lutein & Zeaxanthin) 1 Tab Tab, 1 TAB PO DAILY, (Reported) Atenolol (Atenolol) 50 Mg Tab, 50 MG PO DAILY, (Reported) Furosemide (Furosemide) 20 Mg Tab, 20 MG PO DAILY, (Reported) Levothyroxine Sodium (Levoxyl) 175 Mcg Tab, 175 MCG PO DAILY, (Reported) Melatonin (Melatonin) 5 Mg Tab, 15 MG PO QHS, (Reported) DOES NOT TAKE WHEN SHE TAKES AMBIEN Meloxicam (Meloxicam) 7.5 Mg Tab, 7.5 MG PO DAILY Scheduled PRN Acetaminophen/Codeine (Tylenol/Codeine #3) Tab, 1 TAB PO Q4HP PRN for PAIN, ( Reported) MAY TAKE 1-2 TABS NEEDED Albuterol Sulfate (Ventolin Hfa) 200 Puff/8 Gm Aers, 2 PUFF INH Q4H PRN for SHORTNESS OF BREATH, (Reported) Nystatin (Nystop Powder) 1 Dose/15 Gm Powd, 0 DOSE TOP BIDP PRN for RASH Oxycodone/Acetaminophen (Percocet 5MG/325MG Tablet) 1 Tab Tab, 1 TAB PO Q6HP PRN for MILD/MODERATE PAIN (PS 1-7) Zolpidem Tartrate (Ambien) 10 Mg Tab, 10 MG PO QHS PRN for SLEEP, (Reported) Allergies Coded Allergies: TAPE (Verified Allergy, Intermediate, PLASTIC TAPE - RASH, 03/05/17) Penicillins (Unverified Allergy, Mild, SWELLING at injection site, ) no problem with pill form Bee Venom (Unverified Allergy, Unknown, 01/12/15) Sulfa Antibiotics (Verified Allergy, Unknown, 10/02/16) GME ATTESTATION GME ATTESTATION My preceptor for this patient encounter was Dr. Gurrola and he was physically present in the building during the encounter and was fully available. As needed , all aspects of the patient interview, examination, medical decision making process, and medical care plan development were reviewed and approved by the preceptor. Preceptor is aware and concurs with the plan as stated in the body of this note and will attest to such by his/her co-signature. HAMLET KELSEY DO Mar 13, 2017 15:53
== END 2017-03-13 13:08 | disposition home health service (06) | DRG 263 ==
LOC: M MSPAV 14:04
PROVIDERS: ADMIT Internal Medicine; ATTEND Internal Medicine
PROC: 05HB33Z Insertion of Infusion Device into Right Basilic Vein, Percutaneous Approach (ICD-10-PCS; 2017-03-06)
PROC: 065Q3ZZ Destruction of Left Saphenous Vein, Percutaneous Approach (ICD-10-PCS; principal; 2017-03-07)
DX: I83.028 Varicose veins of left lower extremity with ulcer other part of lower leg (principal); L97.819 Non-pressure chronic ulcer of other part of right lower leg with unspecified severity; L97.829 Non-pressure chronic ulcer of other part of left lower leg with unspecified severity; Z68.44 Body mass index [BMI] 60.0-69.9, adult; N39.0 Urinary tract infection, site not specified; I83.018 Varicose veins of right lower extremity with ulcer other part of lower leg; E03.9 Hypothyroidism, unspecified; I10 Essential (primary) hypertension; E66.01 Morbid (severe) obesity due to excess calories; B96.5 Pseudomonas (aeruginosa) (mallei) (pseudomallei) as the cause of diseases classified elsewhere; F41.9 Anxiety disorder, unspecified; B96.20 Unspecified Escherichia coli [E. coli] as the cause of diseases classified elsewhere; G47.00 Insomnia, unspecified; Z88.0 Allergy status to penicillin; Z91.030 Bee allergy status; Z96.653 Presence of artificial knee joint, bilateral; Z87.442 Personal history of urinary calculi; Z88.2 Allergy status to sulfonamides; Z91.048 Other nonmedicinal substance allergy status

== ENCOUNTER → 2017-03-17 | Outpatient (REF) | payer MEDICARE, OTHER ==
[~2017-03-17] MED LIST changes: +AMBI10TA PO; +LEVO175T19 PO; +MELA5TAB21 PO; +MELO15TA4 PO
[2017-03-17 14:56] LABS: MEAN CORPUSCULAR HEMOGLOBIN 31.1 pg (27.0-33.0); MEAN CORPUSCULAR HGB CONC 32.6 g/dl (32.0-36.5); MEAN CORPUSCULAR VOLUME 95.3 fl (80.0-96.0); RED CELL DISTRIBUTION WIDTH 14.7 % (11.5-14.5); WHITE BLOOD COUNT 4.6 K/mm3 (4.0-10.0)
[2017-03-17 15:11] LABS: ANION GAP 6 MEQ/L (8-16); BLOOD UREA NITROGEN 27 MG/DL (7-18); CALCIUM LEVEL 8.6 MG/DL (8.8-10.2); CARBON DIOXIDE LEVEL 31 MEQ/L (21-32); CHLORIDE LEVEL 101 MEQ/L (98-107); CREATININE FOR GFR 0.55 MG/DL (0.55-1.02); GLOMERULAR FILTRATION RATE > 60.0 (>39); GLUCOSE, FASTING 98 MG/DL (83-110); SODIUM LEVEL 138 MEQ/L (136-145)
== END ==
LOC: M LAB REF 14:03
PROVIDERS: ATTEND Internal Medicine
DX: R60.0 Localized edema (principal)

== ENCOUNTER → 2017-03-24 | Outpatient (REF) | payer MEDICARE, OTHER ==
[2017-03-24 14:11] LABS: MEAN CORPUSCULAR HGB CONC 32.2 g/dl (32.0-36.5); MEAN CORPUSCULAR VOLUME 96.2 fl (80.0-96.0); RED CELL DISTRIBUTION WIDTH 14.9 % (11.5-14.5); WHITE BLOOD COUNT 4.3 K/mm3 (4.0-10.0)
[2017-03-24 14:28] LABS: ANION GAP 5 MEQ/L (8-16); BLOOD UREA NITROGEN 20 MG/DL (7-18); CALCIUM LEVEL 9.1 MG/DL (8.8-10.2); CARBON DIOXIDE LEVEL 33 MEQ/L (21-32); CHLORIDE LEVEL 100 MEQ/L (98-107); CREATININE FOR GFR 0.61 MG/DL (0.55-1.02); GLOMERULAR FILTRATION RATE > 60.0 (>39); GLUCOSE, FASTING 90 MG/DL (83-110); POTASSIUM SERUM 4.8 MEQ/L (3.5-5.1); SODIUM LEVEL 138 MEQ/L (136-145)
== END ==
LOC: M LAB REF 13:40
PROVIDERS: ATTEND Internal Medicine Infectious Disease
DX: L03.115 Cellulitis of right lower limb (principal)

== ENCOUNTER → 2017-03-31 | Outpatient (REF) | payer MEDICARE, OTHER ==
[~2017-03-31] MED LIST changes: -ACET-71 PO; +ACET1TAB16 PO; +ASPI325T24 PO; -ASPI32ECTA PO; +BACITAB PO; -BACITAB3 PO; -CELE-19 PO; +CELE1CAP4 PO; +CIPR-249 PO; -CIPR500T89 PO; +ECOT325T7 PO; +IMOD2TAB16 PO; +LINE60TAB PO; -MELO7.5T6 PO; +MELO7.5T7 PO; +MERO1INJ IV; +MOBI4TAB PO; -MOBI7.5T10 PO; +NYST1POW9 TOP; +PYRI1TAB5 PO; -PYRI200T5 PO; +RISATAB3 PO; +SANT250O8 TOP; -SENO8.6T2 PO; +SENO8.6T5 PO; +VITA1CAP40 PO; -VITA50003 PO; +VITMTA PO; +ZINC50TA PO
[2017-03-31 14:52] LABS: ALBUMIN 3.3 GM/DL (3.2-5.2); ALBUMIN/GLOBULIN RATIO 0.87 (1.00-1.93); ALKALINE PHOSPHATASE 115 U/L (45-117); ALT/SGPT 30 U/L (12-78); ANION GAP 8 MEQ/L (8-16); AST/SGOT 24 U/L (15-37); BILIRUBIN,TOTAL 0.6 MG/DL (0.2-1.0); BLOOD UREA NITROGEN 20 MG/DL (7-18); CALCIUM LEVEL 8.6 MG/DL (8.8-10.2); CARBON DIOXIDE LEVEL 31 MEQ/L (21-32); CHLORIDE LEVEL 100 MEQ/L (98-107); CHOLESTEROL LEVEL 205 MG/DL (<200); FREE T4 1.27 NG/DL (0.76-1.46); GLOMERULAR FILTRATION RATE > 60.0 (>39); GLUCOSE, FASTING 82 MG/DL (83-110); POTASSIUM SERUM 4.5 MEQ/L (3.5-5.1); SODIUM LEVEL 139 MEQ/L (136-145); TOTAL PROTEIN 7.1 GM/DL (6.4-8.2); TRIGLYCERIDES LEVEL 224 MG/DL (<150)
== END ==
LOC: M LAB REF 13:04
PROVIDERS: ATTEND Nurse Practitioner Family
DX: I10 Essential (primary) hypertension (principal); E78.5 Hyperlipidemia, unspecified; E03.9 Hypothyroidism, unspecified; Z13.818 Encounter for screening for other digestive system disorders; R73.01 Impaired fasting glucose; A49.8 Other bacterial infections of unspecified site; R60.0 Localized edema; I87.311 Chronic venous hypertension (idiopathic) with ulcer of right lower extremity; I87.2 Venous insufficiency (chronic) (peripheral); L97.811 Non-pressure chronic ulcer of other part of right lower leg limited to breakdown of skin

== ENCOUNTER → 2017-03-31 | Outpatient (REF) | payer MEDICARE, OTHER ==
[2017-03-31 13:46] LABS: MEAN CORPUSCULAR HGB CONC 32.5 g/dl (32.0-36.5); MEAN CORPUSCULAR VOLUME 95.6 fl (80.0-96.0); RED CELL DISTRIBUTION WIDTH 14.8 % (11.5-14.5); WHITE BLOOD COUNT 6.1 K/mm3 (4.0-10.0)
[2017-03-31 14:22] LABS: ANION GAP 5 MEQ/L (8-16); BLOOD UREA NITROGEN 19 MG/DL (7-18); CALCIUM LEVEL 8.8 MG/DL (8.8-10.2); CARBON DIOXIDE LEVEL 33 MEQ/L (21-32); CHLORIDE LEVEL 100 MEQ/L (98-107); CREATININE FOR GFR 0.58 MG/DL (0.55-1.02); GLOMERULAR FILTRATION RATE > 60.0 (>39); GLUCOSE, FASTING 79 MG/DL (83-110); POTASSIUM SERUM 4.5 MEQ/L (3.5-5.1); SODIUM LEVEL 138 MEQ/L (136-145)
== END ==
LOC: M LAB REF 13:20
PROVIDERS: ATTEND Internal Medicine Infectious Disease
DX: A49.8 Other bacterial infections of unspecified site (principal); R60.0 Localized edema; I87.311 Chronic venous hypertension (idiopathic) with ulcer of right lower extremity; I87.2 Venous insufficiency (chronic) (peripheral); L97.811 Non-pressure chronic ulcer of other part of right lower leg limited to breakdown of skin

== ENCOUNTER → 2017-04-08 | Outpatient (REF) | payer MEDICARE, OTHER ==
[2017-04-08 13:38] LABS: MEAN CORPUSCULAR HEMOGLOBIN 31.7 pg (27.0-33.0); MEAN CORPUSCULAR HGB CONC 32.8 g/dl (32.0-36.5); MEAN CORPUSCULAR VOLUME 96.6 fl (80.0-96.0); RED CELL DISTRIBUTION WIDTH 15.3 % (11.5-14.5); WHITE BLOOD COUNT 3.8 K/mm3 (4.0-10.0)
[2017-04-08 13:45] LABS: ANION GAP 6 MEQ/L (8-16); BLOOD UREA NITROGEN 20 MG/DL (7-18); CALCIUM LEVEL 8.9 MG/DL (8.8-10.2); CARBON DIOXIDE LEVEL 30 MEQ/L (21-32); CHLORIDE LEVEL 100 MEQ/L (98-107); CREATININE FOR GFR 0.62 MG/DL (0.55-1.02); GLOMERULAR FILTRATION RATE > 60.0 (>39); GLUCOSE, FASTING 97 MG/DL (83-110); POTASSIUM SERUM 4.7 MEQ/L (3.5-5.1); SODIUM LEVEL 136 MEQ/L (136-145)
== END ==
LOC: M LAB REF 12:46
PROVIDERS: ATTEND Internal Medicine
DX: A49.8 Other bacterial infections of unspecified site (principal)

== ENCOUNTER → 2017-04-10 | Outpatient (REF) | payer MEDICARE, OTHER ==
[2017-04-10 14:36] LABS: BASO # 0.1 K/mm3 (0.0-0.2); BASO % 1.8 % (0.0-1.0); EOS # 0.3 K/mm3 (0.0-0.50); EOS % 7.7 % (0.0-3.0); LARGE UNSTAINED CELL # 0.1 K/mm3 (0.0-0.4); LARGE UNSTAINED CELL % 3.3 % (0.0-4.0); LYMPH % 23.4 % (24.0-44.0); MEAN CORPUSCULAR HEMOGLOBIN 30.6 pg (27.0-33.0); MEAN CORPUSCULAR HGB CONC 31.9 g/dl (32.0-36.5); MONO # 0.4 K/mm3 (0.0-0.8); MONO % 10.1 % (0.0-5.0); NEUTROPHILS # 2.1 K/mm3 (1.8-7.7); NEUTROPHILS % 53.6 % (36.0-66.0); PLATELET COUNT, AUTOMATED 239 k/mm3 (150-450); RED CELL DISTRIBUTION WIDTH 15.3 % (11.5-14.5); WHITE BLOOD COUNT 3.9 K/mm3 (4.0-10.0)
== END ==
LOC: M LAB REF 14:08
PROVIDERS: ATTEND Internal Medicine Infectious Disease
DX: A49.8 Other bacterial infections of unspecified site (principal)

== ENCOUNTER → 2017-04-14 | Outpatient (REF) | payer MEDICARE, OTHER ==
[2017-04-14 15:17] LABS: MEAN CORPUSCULAR HGB CONC 32.4 g/dl (32.0-36.5); MEAN CORPUSCULAR VOLUME 95.7 fl (80.0-96.0); RED CELL DISTRIBUTION WIDTH 15.4 % (11.5-14.5); WHITE BLOOD COUNT 4.3 K/mm3 (4.0-10.0)
[2017-04-14 15:42] LABS: ANION GAP 5 MEQ/L (8-16); BLOOD UREA NITROGEN 22 MG/DL (7-18); CALCIUM LEVEL 8.9 MG/DL (8.8-10.2); CARBON DIOXIDE LEVEL 32 MEQ/L (21-32); CHLORIDE LEVEL 99 MEQ/L (98-107); CREATININE FOR GFR 0.53 MG/DL (0.55-1.02); GLOMERULAR FILTRATION RATE > 60.0 (>39); GLUCOSE, FASTING 85 MG/DL (83-110); POTASSIUM SERUM 5.1 MEQ/L (3.5-5.1); SODIUM LEVEL 136 MEQ/L (136-145)
== END ==
LOC: M LAB REF 14:44
PROVIDERS: ATTEND Internal Medicine Infectious Disease
DX: L08.9 Local infection of the skin and subcutaneous tissue, unspecified (principal)

== ENCOUNTER 2017-07-09 19:36 | Inpatient (IN) | payer MEDICARE, OTHER ==
[~2017-07-09] VITALS: Ht 160 cm; Wt 167.2 kg
[~2017-07-09 19:36] MED LIST changes: -ECOT325T7 PO; -IMOD2TAB16 PO; -LINE60TAB PO; -MERO1INJ IV; -NYST1POW9 TOP; -RISATAB3 PO; -SANT250O8 TOP; -VITMTA PO; -ZINC50TA PO
[2017-07-09] MEDS ORDERED: ONDANSETRON 4MG/2ML VIAL (J2405) IV ONE (21:15)
[2017-07-09] MEDS: MORPHINE 4 MG/ML 1ML SYRINGE IV PRN ×2 (21:44→22:24)
[2017-07-09 21:59] LABS: BASO % 0.4 % (0.0-1.0); EOS # 0.1 10^3/uL (0.0-0.50); EOS % 1.6 % (0.0-3.0); IMMATURE GRANULOCYTE % 0.3 % (0-0); LYMPH % 14.1 % (24.0-44.0); MEAN CORPUSCULAR HEMOGLOBIN 34.4 pg (27.0-33.0); MEAN CORPUSCULAR HGB CONC 34.5 g/dl (32.0-36.5); MEAN CORPUSCULAR VOLUME 99.7 fl (80.0-96.0); MONO # 0.6 10^3/uL (0.0-0.8); MONO % 8.1 % (0.0-5.0); NEUTROPHILS # 5.4 10^3/uL (1.8-7.7); NEUTROPHILS % 75.5 % (36.0-66.0); PLATELET COUNT, AUTOMATED 282 10^3/uL (150-450); RED CELL DISTRIBUTION WIDTH 14.2 % (11.5-14.5); WHITE BLOOD COUNT 7.1 10^3/uL (4.0-10.0)
--- NOTE | 2017-07-09 22:30 | REPUSA ---
Clinical history: Pain, swelling. Findings: The common femoral, superficial femoral, popliteal, and other deep venous structures compre ss normally and demonstrate normal color Doppler flow. Normal venous waveforms with augmentation are seen. Impression: No evidence of deep vein thrombosis in the femoral popliteal venous system.
[2017-07-09 22:32] LABS: ANION GAP 7 MEQ/L (8-16); BLOOD UREA NITROGEN 23 MG/DL (7-18); CALCIUM LEVEL 9.1 MG/DL (8.8-10.2); CARBON DIOXIDE LEVEL 31 MEQ/L (21-32); CHLORIDE LEVEL 103 MEQ/L (98-107); CREATININE FOR GFR 0.67 MG/DL (0.55-1.02); GLOMERULAR FILTRATION RATE > 60.0 (>39); GLUCOSE, FASTING 128 MG/DL (83-110); SODIUM LEVEL 141 MEQ/L (136-145)
[2017-07-09 23:56] LABS: ERYTHROCYTE SEDIMENTATION RATE 69 mm/hr (0-30)
[2017-07-10] MEDS ORDERED: FURO20TA2 PO (00:28)
[2017-07-10] MEDS ORDERED: VITA1CAP40 PO (00:33)
[2017-07-10] MEDS ORDERED: MELO15TA4 PO (00:33)
[2017-07-10] MEDS ORDERED: ECOT325T7 PO (00:33)
[2017-07-10] MEDS ORDERED: NYST1POW9 TOP (00:33)
[2017-07-10] MEDS ORDERED: VITMTA PO (00:33)
[2017-07-10] MEDS ORDERED: ZINC50TA PO (00:33)
[2017-07-10] MEDS ORDERED: MELA1TAB15 PO (00:33)
[2017-07-10] MEDS ORDERED: ASPI325T24 PO (00:34)
--- NOTE | 2017-07-10 00:56 | HPEPDOC ---
General Date of Admission 07-10-17 Chief Complaint The patient is a 72-year-old female admitted with a reason for visit of Left Leg Infection. Source: Patient Exam Limitations: No limitations Timing/Duration: Day(s) (2) Severity: Moderate, Severe History of Present Illness 72 y/o female with past medical history of hypothyroidism, htn, morbid obesity, chronic infected venous stasis ulcers, insomnia, kidney stones and pyelonephritis who presents to ED after she was instructed by her wound care doctor in [place] to come to the ED for a skin infection of her left lower extremity, the pt states that she saw the wound care doctor one day ago who stated her chronic venous stasis ulcers looked infected, he was apparently going to admit her to [facility] but the pt. preferred to c/w seeing her local infectious disease doctor in [place], [place] and thus the decision was made to admit her to [facility] . The pt states that the chronic pain in her legs from the swelling and ulcers has increased drastically over the past 3-5 days, to a 7/10 when it usually is a 2/10, she has also noted increase yellow drainage from the ulcer on her left LE, she thinks she also has been running a fever as she has felt "hot" lately but denied taking her temperature, she admits to experiencing some chills at night as well during the pat 3 days, but denies muscle aches or night sweats otherwise. She also states that she has had two episodes of loose stool over 48 hours that did not contain blood or mucus. She has had no change in urinary habits nor blood in her urine. She denies n/v, CP or SOB. Home Medications Scheduled (Icaps Lutein & Zeaxanthin) 1 Tab Tab, 1 TAB PO DAILY, (Reported) Atenolol (Atenolol) 50 Mg Tab, 50 MG PO DAILY, (Reported) Ergocalciferol (Vitamin D) 50,000 Unit Cap, 50,000 UNIT PO QWEEK, (Reported) SATURDAYS Furosemide (Furosemide) 20 Mg Tab, 20 MG PO DAILY, (Reported) Levothyroxine Sodium (Levoxyl) 175 Mcg Tab, 175 MCG PO DAILY, (Reported) Melatonin (Melatonin) 10 Mg Tab, 10 MG PO QHS, (Reported) Meloxicam (Meloxicam) 15 Mg Tab, 15 MG PO DAILY, (Reported) Multivitamins *[facility] STOCKED* (Thera M Plus *[facility] STOCKED*) 1 Tab Tab, 1 TAB PO DAILY, (Reported) Nystatin (Nystatin Powder) 100,000 Unit/Gm Pow, 1 DOSE TOP DAILY, (Reported) FOR DRESSING CHANGES Zinc (Zinc) 50 Mg Tab, 50 MG PO DAILY, (Reported) Scheduled PRN Acetaminophen/Codeine (Tylenol/Codeine #3) Tab, 1 TAB PO Q6H PRN for PAIN, ( Reported) Albuterol Sulfate (Ventolin Hfa) 200 Puff/8 Gm Aers, 2 PUFF INH Q4H PRN for SHORTNESS OF BREATH, (Reported) Aspirin (Aspirin EC) 325 Mg Tabec, 325 MG PO DAILY PRN for PAIN, (Reported) Allergies Coded Allergies: TAPE (Verified Allergy, Intermediate, PLASTIC TAPE - RASH, 03/05/17) Penicillins (Unverified Allergy, Mild, SWELLING at injection site, ) no problem with pill form Bee Venom (Unverified Allergy, Unknown, 01/12/15) Sulfa Antibiotics (Verified Allergy, Unknown, 10/02/16) Past Medical History Medical History Hypothyroidism. Hypertension. Morbid obesity. Chronic infected venous ulcers. Insomnia. Kidney stones. Pyelonephritis. Surgical History right and left knee replacement, kidney stones with stenting Family History Significant Family History: No pertinent family hx Social History * Smoker: Denies Alcohol: Denies Drugs: denies Review of Symptoms Constitutional: Reports: Chills, Fever, Malaise, Fatigue, Denies: Night Sweats, Weakness Eyes: Denies: Pain, Vision change, Conjunctivae inflammation ENT: Denies: Head Aches, Ear Pain Skin: Denies: Rash, Lesions Pulmonary: Denies: Dyspnea, Cough Cardiovascular: Denies: Chest Pain, Palpitations Gastrointestinal: Reports: Diarrhea, Denies: Nausea, Vomiting, Abdominal Pain, Constipation Genitourinary: Denies: Dysuria, Frequency, Incontinence Hematologic: Denies: Bruising Musculoskeletal: Reports: Leg Pain (b/l pain in LE from ulcers and edema), Denies: Neck Pain Neurological: Denies: Numbness Psych: Reports: Mood Normal Physical Examination General Exam: Positive: Alert, Cooperative, Mild Distress Eye Exam: Positive: Conjunctiva & lids normal, EOMI ENT Exam: Positive: Mucous membr. moist/pink, Pharynx Normal, Tongue Midline Neck Exam: Positive: Supple Chest Exam: Positive: Clear to auscultation, Diminished, Negative: Rales, Rhonchi, Wheezing Heart Exam: Positive: Rate Normal, Normal S1, Normal S2, Negative: Murmurs Telemetry: Positive: No significant arrhythmia Abdomen Exam: Positive: Normal bowel sounds, Soft, Negative: Tenderness, Hepatospenomegaly Extremity Exam: Positive: Edema (b/l LE +1), Tenderness (b/l LE, more so on left foot near ulcer stage 2-3, stage 2 on back of right heel), Negative: Clubbing, Cyanosis Vital Signs Vital Signs Date Time Temp Pulse Resp B/P (MAP) Pulse Ox O2 Delivery O2 Flow Rate FiO2 07/09/17 22:27 76 18 151/69 (96) 97 Room Air 07/09/17 19:36 97.9 Laboratory Data Labs 24H Laboratory Tests 2 07/09/17 21:23: Lactic Acid Level 1.3 07/09/17 21:43: Immature Granulocyte % (Auto) 0.3H, White Blood Count 7.1, Red Blood Count 3.98L , Hemoglobin 13.7, Hematocrit 39.7, Mean Corpuscular Volume 99.7H, Mean Corpuscular Hemoglobin 34.4H, Mean Corpuscular Hemoglobin Concent 34.5, Red Cell Distribution Width 14.2, Platelet Count 282, Neutrophils (%) (Auto) 75.5H, Lymphocytes (%) (Auto) 14.1L, Monocytes (%) (Auto) 8.1H, Eosinophils (%) (Auto) 1.6, Basophils (%) (Auto) 0.4, Neutrophils # (Auto) 5.4, Lymphocytes # (Auto) 1.0L, Monocytes # (Auto) 0.6, Eosinophils # (Auto) 0.1, Basophils # (Auto) 0.0, Immature Granulocyte # (Auto) 0.0, Nucleated Red Blood Cells % (auto) 0.0, Erythrocyte Sedimentation Rate 69H, Anion Gap 7L, Glomerular Filtration Rate > 60.0, Blood Urea Nitrogen 23H, Creatinine 0.67, Sodium Level 141, Potassium Level 4.0, Chloride Level 103, Carbon Dioxide Level 31, Calcium Level 9.1, C- Reactive Protein, Quantitative 2.09H, Thyroid Stimulating Hormone (TSH) 3.250 CBC/BMP Laboratory Tests 07/09/17 21:43 Red Blood Count 3.98 L, Mean Corpuscular Volume 99.7 H, Mean Corpuscular Hemoglobin 34.4 H, Mean Corpuscular Hemoglobin Concent 34.5, Red Cell Distribution Width 14.2, Neutrophils (%) (Auto) 75.5 H, Lymphocytes (%) (Auto) 14.1 L, Monocytes (%) (Auto) 8.1 H, Eosinophils (%) (Auto) 1.6, Basophils (%) ( Auto) 0.4, Neutrophils # (Auto) 5.4, Lymphocytes # (Auto) 1.0 L, Monocytes # ( Auto) 0.6, Eosinophils # (Auto) 0.1, Basophils # (Auto) 0.0, Calcium Level 9.1 Microbiology Microbiology 07/09/17 Blood Culture, Received Pending 07/09/17 Blood Culture, Received Pending 07/09/17 Gram Stain, Received Pending 07/09/17 Wound Culture, Received Pending 07/09/17 Gram Stain, Received Pending 07/09/17 Wound Culture, Received Pending Problems (1) Cellulitis Status: Acute Response to Treatment: Stable Problem Text: secondary to venous stasis will consult infectious disease in [place] - appreciate their recommendations wound culture pending pt has hx of past would cx + for pseudomonas and e. faecalis- will treat with meropenem pain control percocet no elevation in wbc and pt currently afebrile, elevated CRP & ESR wound care and OT cx., pt has made clear demand that she "will absolutely not see Dr. Alonso" and "only wants to be treated by DR. Hastings or the wound care nurse Long". blood cx pending Vashe cleanser with curex wraps and wet to dry with leg elevation for now if pt has been afebrile for 24 hours can consider PICC line placement as pt has very poor venous access (2) HTN (hypertension) Status: Chronic Response to Treatment: Stable Problem Text: c/w home medications (3) Hypothyroidism Status: Chronic Response to Treatment: Stable Problem Text: c/w home medications (4) DVT prophylaxis Status: Chronic Response to Treatment: Stable Problem Text: lovenox therapy Plan / VTE VTE Prophylaxis Ordered?: Yes GME ATTESTATION GME ATTESTATION My preceptor for this patient encounter was physically present in the building during the encounter and was fully available. As needed, all aspects of the patient interview, examination, medical decision making process, and medical care plan development were reviewed and approved by the preceptor. Preceptor is aware and concurs with the plan as stated in the body of this note and will attest to such by his/her cosignature. ATTENDING NOTE I have both independently examined this patient as well as reviewed the H&P. I have discussed in detail with the resident the findings and plan of treatment as documented in the residents note. I will continue to follow the patient and offer further guidance to the patients care as necessary during this hospital stay. FRANCISCO Sharpe MD, DO Jul 10, 2017 00:56 JYOTI BEAULIEU MD Jul 10, 2017 18:59
[2017-07-10] MEDS ORDERED: POLYVINYL ALCOHOL OPHTH SOLN 15 ML(LIQUITEARS) OU PRN (01:30)
[2017-07-10] MEDS: IBUPROFEN 800 MG TAB PO PRN ×2 (03:38→11:39)
[2017-07-10] MEDS: MEROPENEM INJ 1 GM in D5W MINI-BAG PLUS 100 ML IV SCH ×3 (03:38→17:33)
[2017-07-10] MEDS: MORPHINE 2 MG/ML 1ML SYRINGE IV PRN ×2 (03:38→15:52)
[2017-07-10] MEDS: RAMELTEON 8 MG TAB (ROZEREM) PO SCH ×2 (03:55→21:42)
[2017-07-10 04:00] VITALS: BP 142/68
[2017-07-10] MEDS: LEVOTHYROXINE 75MCG TABLET (0.075MG) PO SCH (06:32)
[2017-07-10] MEDS: LEVOTHYROXINE 100MCG TABLET (0.1MG) PO SCH (06:32)
[2017-07-10 07:13] LABS: BASO % 0.5 % (0.0-1.0); EOS # 0.2 10^3/uL (0.0-0.50); EOS % 2.9 % (0.0-3.0); IMMATURE GRANULOCYTE % 0.4 % (0-0); LYMPH % 18.6 % (24.0-44.0); MEAN CORPUSCULAR HEMOGLOBIN 31.9 pg (27.0-33.0); MEAN CORPUSCULAR HGB CONC 31.2 g/dl (32.0-36.5); MEAN CORPUSCULAR VOLUME 102.2 fl (80.0-96.0); MONO # 0.6 10^3/uL (0.0-0.8); NEUTROPHILS # 3.7 10^3/uL (1.8-7.7); NEUTROPHILS % 67.6 % (36.0-66.0); PLATELET COUNT, AUTOMATED 247 10^3/uL (150-450); RED CELL DISTRIBUTION WIDTH 14.2 % (11.5-14.5); WHITE BLOOD COUNT 5.5 10^3/uL (4.0-10.0)
[2017-07-10 07:30] VITALS: BP 137/58
[2017-07-10 07:37] LABS: ANION GAP 5 MEQ/L (8-16); BLOOD UREA NITROGEN 24 MG/DL (7-18); CALCIUM LEVEL 8.5 MG/DL (8.8-10.2); CARBON DIOXIDE LEVEL 32 MEQ/L (21-32); CHLORIDE LEVEL 102 MEQ/L (98-107); CREATININE FOR GFR 0.54 MG/DL (0.55-1.02); GLOMERULAR FILTRATION RATE > 60.0 (>39); GLUCOSE, FASTING 104 MG/DL (83-110); SODIUM LEVEL 139 MEQ/L (136-145)
[2017-07-10] MEDS ORDERED: FUROSEMIDE 20 MG TAB PO SCH (09:00)
[2017-07-10] MEDS: SENOKOT S TAB PO SCH ×3 (09:00→21:00)
[2017-07-10] MEDS: ATENOLOL 50 MG TAB PO SCH (09:49)
[2017-07-10] MEDS: MULTIVITAMINS/MINERALS THERAP 1 TAB PO SCH (09:50)
[2017-07-10] MEDS: FUROSEMIDE 20 MG TAB PO SCH (09:50)
[2017-07-10] MEDS: ENOXAPARIN 40 MG/0.4 ML SYRINGE (J1650) SC SCH (09:50)
--- NOTE | 2017-07-10 13:47 | IPNPDOC ---
Date Seen The patient was seen on 07/10/17. Progress Note SUBJECTIVE: Patient is a 22-year-old female last evening. 4, patient's with venous stasis ulcers and wounds. She has not had any fevers overnight. No chest pain, nausea, vomiting or signs of sepsis OBJECTIVE PHYSICAL EXAMINATION: VITAL SIGNS: Please see below. GENERAL: No acute distress HEENT: PERRLA. Throat clear. Neck supple CARDIOVASCULAR: Regular rate and rhythm. RESPIRATORY: To auscultation bilaterally. ABDOMINAL: Soft, obese, nontender, nondistended positive bowel sounds, mass or rebound EXTREMITIES: No edema, no calf tenderness NEUROLOGICAL: Cranial nerves II through XII intact PSYCHOLOGICAL: Negative LABORATORY DATA: Please see below. MICROBIOLOGY: Please see below. Wound and blood cultures are pending. IMAGING: Duplex lower extremity ultrasound negative for DVT bilaterally DVT prophylaxis ordered?: Yes ASSESSMENT AND PLAN: This is a 72-year-old female with stasis ulcers, wounds early waiting to be evaluated by surgery. She does have a prior history of positive cultures for Pseudomonas. PROBLEMS: 1. Cellulitis of lower extremities with venous stasis ulcers open wounds: Chest prior history of positive wound culture for Pseudomonas in the faecalis. We'll continue coverage with meropenem, vancomycin. Continue with when necessary Percocet for pain. She remains afebrile. Continue to follow CRP and white count. Currently blood cultures and wound cultures are pending. Vashe cleanser with curex wraps and wet to dry with leg elevation for now, we' ll ask the wound care nurse take a look at her legs as well. 2. Hypertension, stable: Continue home meds / atenolol 3. Hypothyroidism, chronic and stable. 4. Slight drop in her hemoglobin. This is likely delusional. We'll repeat in the morning. 5. DVT prophylaxis: Lovenox subcutaneous DISPOSITION: Anticipate further evaluation by surgery and wound care nurse. Await cultures to further delineate anabolic coverage.. VS, I&O, 24H, Fishbone Vital Signs/I&O Vital Signs Date Time Temp Pulse Resp B/P (MAP) Pulse Ox O2 Delivery O2 Flow Rate FiO2 07/10/17 09:49 81 137/58 07/10/17 07:30 97.7 18 92 Room Air I&O- Last 24 Hours up to 6 AM 07/11/17 06:00 Output Total 100 ml Balance -100 ml Laboratory Data 24H LABS Laboratory Tests 2 07/09/17 21:23: Lactic Acid Level 1.3 07/09/17 21:43: Immature Granulocyte % (Auto) 0.3H, White Blood Count 7.1, Red Blood Count 3.98L , Hemoglobin 13.7, Hematocrit 39.7, Mean Corpuscular Volume 99.7H, Mean Corpuscular Hemoglobin 34.4H, Mean Corpuscular Hemoglobin Concent 34.5, Red Cell Distribution Width 14.2, Platelet Count 282, Neutrophils (%) (Auto) 75.5H, Lymphocytes (%) (Auto) 14.1L, Monocytes (%) (Auto) 8.1H, Eosinophils (%) (Auto) 1.6, Basophils (%) (Auto) 0.4, Neutrophils # (Auto) 5.4, Lymphocytes # (Auto) 1.0L, Monocytes # (Auto) 0.6, Eosinophils # (Auto) 0.1, Basophils # (Auto) 0.0, Immature Granulocyte # (Auto) 0.0, Nucleated Red Blood Cells % (auto) 0.0, Erythrocyte Sedimentation Rate 69H, Anion Gap 7L, Glomerular Filtration Rate > 60.0, Blood Urea Nitrogen 23H, Creatinine 0.67, Sodium Level 141, Potassium Level 4.0, Chloride Level 103, Carbon Dioxide Level 31, Calcium Level 9.1, C- Reactive Protein, Quantitative 2.09H, Thyroid Stimulating Hormone (TSH) 3.250 07/10/17 06:55: Immature Granulocyte % (Auto) 0.4H, White Blood Count 5.5, Red Blood Count 3.61L , Hemoglobin 11.5#L, Hematocrit 36.9, Mean Corpuscular Volume 102.2H, Mean Corpuscular Hemoglobin 31.9, Mean Corpuscular Hemoglobin Concent 31.2L, Red Cell Distribution Width 14.2, Platelet Count 247, Neutrophils (%) (Auto) 67.6H, Lymphocytes (%) (Auto) 18.6L, Monocytes (%) (Auto) 10.0H, Eosinophils (%) (Auto ) 2.9, Basophils (%) (Auto) 0.5, Neutrophils # (Auto) 3.7, Lymphocytes # (Auto) 1.0L, Monocytes # (Auto) 0.6, Eosinophils # (Auto) 0.2, Basophils # (Auto) 0.0, Immature Granulocyte # (Auto) 0.0, Nucleated Red Blood Cells % (auto) 0.0, Anion Gap 5L, Glomerular Filtration Rate > 60.0, Blood Urea Nitrogen 24H, Creatinine 0.54L, Sodium Level 139, Potassium Level 4.0, Chloride Level 102, Carbon Dioxide Level 32, Calcium Level 8.5L CBC/BMP Laboratory Tests 07/09/17 21:43 Red Blood Count 3.98 L, Mean Corpuscular Volume 99.7 H, Mean Corpuscular Hemoglobin 34.4 H, Mean Corpuscular Hemoglobin Concent 34.5, Red Cell Distribution Width 14.2, Neutrophils (%) (Auto) 75.5 H, Lymphocytes (%) (Auto) 14.1 L, Monocytes (%) (Auto) 8.1 H, Eosinophils (%) (Auto) 1.6, Basophils (%) ( Auto) 0.4, Neutrophils # (Auto) 5.4, Lymphocytes # (Auto) 1.0 L, Monocytes # ( Auto) 0.6, Eosinophils # (Auto) 0.1, Basophils # (Auto) 0.0, Calcium Level 9.1 07/10/17 06:55 Red Blood Count 3.61 L, Mean Corpuscular Volume 102.2 H, Mean Corpuscular Hemoglobin 31.9, Mean Corpuscular Hemoglobin Concent 31.2 L, Red Cell Distribution Width 14.2, Neutrophils (%) (Auto) 67.6 H, Lymphocytes (%) (Auto) 18.6 L, Monocytes (%) (Auto) 10.0 H, Eosinophils (%) (Auto) 2.9, Basophils (%) ( Auto) 0.5, Neutrophils # (Auto) 3.7, Lymphocytes # (Auto) 1.0 L, Monocytes # ( Auto) 0.6, Eosinophils # (Auto) 0.2, Basophils # (Auto) 0.0, Calcium Level 8.5 L Microbiology Microbiology 07/09/17 Blood Culture, Received Pending 07/09/17 Blood Culture, Received Pending 07/09/17 Gram Stain - Final, Resulted 07/09/17 Wound Culture, Resulted Pending 07/09/17 Gram Stain - Final, Resulted 07/09/17 Wound Culture, Resulted Pending JULIOCESAR CHOI DO Jul 10, 2017 13:47
[2017-07-10 14:00] VITALS: BP_SYST 119; BP_SYST 146; BP_DIAS 66; BP_DIAS 67
[2017-07-10] MEDS: ASPIRIN ENTERIC 325 MG TAB PO PRN (15:52)
[2017-07-10 22:00] VITALS: BP 122/62
[2017-07-11] MEDS: MEROPENEM INJ 1 GM in D5W MINI-BAG PLUS 100 ML IV SCH ×3 (01:46→17:50)
[2017-07-11] MEDS: LEVOTHYROXINE 75MCG TABLET (0.075MG) PO SCH (05:34)
[2017-07-11] MEDS: LEVOTHYROXINE 100MCG TABLET (0.1MG) PO SCH (05:34)
[2017-07-11 06:00] VITALS: BP 140/68
[2017-07-11 07:06] LABS: BASO % 0.8 % (0.0-1.0); EOS # 0.2 10^3/uL (0.0-0.50); EOS % 3.8 % (0.0-3.0); IMMATURE GRANULOCYTE % 0.4 % (0-0); LYMPH # 0.6 10^3/uL (1.5-4.5); LYMPH % 11.9 % (24.0-44.0); MEAN CORPUSCULAR HEMOGLOBIN 31.7 pg (27.0-33.0); MEAN CORPUSCULAR VOLUME 102.4 fl (80.0-96.0); MONO # 0.4 10^3/uL (0.0-0.8); MONO % 7.4 % (0.0-5.0); NEUTROPHILS # 3.8 10^3/uL (1.8-7.7); NEUTROPHILS % 75.7 % (36.0-66.0); PLATELET COUNT, AUTOMATED 230 10^3/uL (150-450); RED CELL DISTRIBUTION WIDTH 14.1 % (11.5-14.5)
[2017-07-11 07:21] LABS: ANION GAP 2 MEQ/L (8-16); BLOOD UREA NITROGEN 17 MG/DL (7-18); CALCIUM LEVEL 8.8 MG/DL (8.8-10.2); CARBON DIOXIDE LEVEL 33 MEQ/L (21-32); CHLORIDE LEVEL 102 MEQ/L (98-107); CREATININE FOR GFR 0.56 MG/DL (0.55-1.02); GLOMERULAR FILTRATION RATE > 60.0 (>39); GLUCOSE, FASTING 104 MG/DL (83-110); MAGNESIUM LEVEL 2.1 MG/DL (1.8-2.4); POTASSIUM SERUM 4.6 MEQ/L (3.5-5.1); SODIUM LEVEL 137 MEQ/L (136-145)
--- NOTE | 2017-07-11 07:43 | IPNPDOC ---
Date Seen The patient was seen on 07/11/17. Progress Note SUBJECTIVE: Patient is a 72-year-old female with venous stasis ulcers and wounds. She has not had any fevers overnight. No chest pain, nausea, vomiting or signs of sepsis OBJECTIVE PHYSICAL EXAMINATION: VITAL SIGNS: Please see below. GENERAL: NAD A&OX3 HEENT: PERRLA, throat clear, neck supple, no JVD CARDIOVASCULAR: RRR. RESPIRATORY: CTA BILATERALLY. ABDOMINAL: SOFT, NT/ND, POSITIVE BS, NO REBOUND EXTREMITIES: VENOUS STASIS WOUNDS LEFT >RIGHT. VAGUE ERYTHEMA NEUROLOGICAL: CN II-XII Grossly intact PSYCHOLOGICAL: negative LABORATORY DATA: Please see below. MICROBIOLOGY: Please see below. DVT prophylaxis ordered?: yes ASSESSMENT AND PLAN: This is a 72-year-old female with stasis ulcers, wounds early waiting to be evaluated by surgery. She does have a prior history of positive cultures for Pseudomonas. PROBLEMS: 1. Cellulitis of lower extremities with venous stasis ulcers open wounds: Prior history of positive wound culture for Pseudomonas and E. faecalis. We'll continue coverage with meropenem, vancomycin and anticipate further guidance from ID. Continue with when necessary Percocet for pain. She remains afebrile. Continue to trend CRP and white count. Currently blood cultures and wound cultures are pending. Vashe cleanser with curex wraps and wet to dry with leg elevation for now, we' ll ask the wound care nurse take a look at her legs as well. [facility] eval is pending. 2. Hypertension, stable: Continue home meds / atenolol 3. Hypothyroidism, chronic and stable. 4. Slight drop in her hemoglobin. This is likely dilutional. We'll repeat in the morning. 5. DVT prophylaxis: Lovenox subcutaneous DISPOSITION: Anticipate further evaluation by surgery and wound care nurse. Await cultures to further delineate anabolic coverage. VS, I&O, 24H, Fishbone Vital Signs/I&O Vital Signs Date Time Temp Pulse Resp B/P (MAP) Pulse Ox O2 Delivery O2 Flow Rate FiO2 07/11/17 06:00 96.5 64 18 140/68 (92) 94 Nasal Cannula 2.0 Laboratory Data 24H LABS Laboratory Tests 2 07/11/17 06:45: Immature Granulocyte % (Auto) 0.4H, White Blood Count 5.0, Red Blood Count 3.69L , Hemoglobin 11.7L, Hematocrit 37.8, Mean Corpuscular Volume 102.4H, Mean Corpuscular Hemoglobin 31.7, Mean Corpuscular Hemoglobin Concent 31.0L, Red Cell Distribution Width 14.1, Platelet Count 230, Neutrophils (%) (Auto) 75.7H, Lymphocytes (%) (Auto) 11.9L, Monocytes (%) (Auto) 7.4H, Eosinophils (%) (Auto) 3.8H, Basophils (%) (Auto) 0.8, Neutrophils # (Auto) 3.8, Lymphocytes # (Auto) 0.6L, Monocytes # (Auto) 0.4, Eosinophils # (Auto) 0.2, Basophils # (Auto) 0.0, Immature Granulocyte # (Auto) 0.0, Nucleated Red Blood Cells % (auto) 0.0, Anion Gap 2L, Glomerular Filtration Rate > 60.0, Blood Urea Nitrogen 17, Creatinine 0.56, Sodium Level 137, Potassium Level 4.6, Chloride Level 102, Carbon Dioxide Level 33H, Calcium Level 8.8, Magnesium Level 2.1, C-Reactive Protein, Quantitative 2.88H CBC/BMP Laboratory Tests 07/11/17 06:45 Red Blood Count 3.69 L, Mean Corpuscular Volume 102.4 H, Mean Corpuscular Hemoglobin 31.7, Mean Corpuscular Hemoglobin Concent 31.0 L, Red Cell Distribution Width 14.1, Neutrophils (%) (Auto) 75.7 H, Lymphocytes (%) (Auto) 11.9 L, Monocytes (%) (Auto) 7.4 H, Eosinophils (%) (Auto) 3.8 H, Basophils (%) (Auto) 0.8, Neutrophils # (Auto) 3.8, Lymphocytes # (Auto) 0.6 L, Monocytes # ( Auto) 0.4, Eosinophils # (Auto) 0.2, Basophils # (Auto) 0.0, Calcium Level 8.8 Microbiology Microbiology 07/09/17 Blood Culture - Preliminary, Resulted No growth after 24 hours . All specim... 07/09/17 Blood Culture - Preliminary, Resulted No growth after 24 hours . All specim... 07/09/17 Gram Stain - Final, Resulted 07/09/17 Wound Culture, Resulted Pending 07/09/17 Gram Stain - Final, Resulted 10/11/17 Wound Culture, Resulted Pending JULIOCESAR CHOI DO Jul 11, 2017 07:43
[2017-07-11] MEDS: SENOKOT S TAB PO SCH ×2 (09:00→20:08)
[2017-07-11] MEDS: SANTYL OINT 30GM TOP SCH (09:00)
[2017-07-11] MEDS: MULTIVITAMINS/MINERALS THERAP 1 TAB PO SCH (09:34)
[2017-07-11] MEDS: ATENOLOL 50 MG TAB PO SCH (09:34)
[2017-07-11] MEDS: ENOXAPARIN 40 MG/0.4 ML SYRINGE (J1650) SC SCH (09:34)
[2017-07-11] MEDS: FUROSEMIDE 20 MG TAB PO SCH (09:35)
[2017-07-11] MEDS: MORPHINE 2 MG/ML 1ML SYRINGE IV PRN (13:27)
[2017-07-11 14:00] VITALS: BP 138/66
--- NOTE | 2017-07-11 16:06 | CR ---
DATE OF CONSULTATION: 07/11/2017 REASON FOR CONSULTATION: Asked to consult by Dr. Butler for evaluation of infected venous ulcers with bilateral lower extremity cellulitis. HISTORY OF PRESENT ILLNESS: Mrs. Sales is a morbidly obese female with a history of chronic venous ulcers who was admitted with increasing pain, erythema and redness with foul-smelling discharge from left lower extremity. She also has associated lower extremity cellulitis. The patient had been seen at the wound clinic in [place] at [facility], and her doctor recommended that she gets admitted but the patient preferred to come to [facility] and, therefore, she was admitted on the 07/10. She had been previously hospitalized on March 05 for a similar situation. She received intravenous (IV) antibiotic with meropenem for Pseudomonas infection at home through a peripherally inserted central catheter (PICC) line. The patient was then followed by the outpatient clinic at [facility] with Unna boot placement. The last visit here was May 20, following which she started going to [facility]. They discontinued the Unna boot and were doing other dressing changes. She had not been on any antibiotics since she (please clarify) finished her course with myself around mid March. She denied having any fevers. She has some chills. She denied any nausea, vomiting or diarrhea or abdominal pain. PAST MEDICAL HISTORY: Significant for hypothyroidism, hypertension, morbid obesity, chronic venous stasis ulcers with a recurrent infection with Pseudomonas, insomnia, kidney stone, pyelonephritis. PAST SURGICAL HISTORY: Right and left total knee replacement, kidney stones with stenting, and venous ablation done by Dr. Belinda Peralta. FAMILY HISTORY: Not relevant. SOCIAL HISTORY: She does not smoke, drink or use drugs. She lives with her . 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 REVIEW OF SYSTEMS: She has some chills but no fever, nausea, or vomiting, no abdominal pain. No cough or shortness of breath. No chest pain or palpitations. No upper or lower extremity weakness. PHYSICAL EXAMINATION: GENERAL: On physical exam she is a pleasant female in no acute distress. VITAL SIGNS: Temperature is 96.5, pulse 64, respirations 18, blood pressure 140/68, O2 saturation 94% on two liters nasal cannula. HEART: Normal S1, S2 with no murmurs. LUNGS: Diminished breath sounds at the bases but clear. ABDOMEN: Morbidly obese, soft, nontender. EXTREMITIES: +2 pitting edema bilaterally with erythema extending to the mid thighs. She has chronic hyperpigmented venous stasis changes about half her legs, and ulceration on the right calf measures 2 x 2 cm pretty superficial, The left calf is a more circumferential ulcer that starts around mid shaft and goes half way to the mid calf area. It is definitely decreased in size from admission in December, but there is foul-smelling discharge and significant redness, bright red. LABORATORY DATA: White count is five, hemoglobin 11.7, hematocrit 37.8, platelets 230. Sodium 137, potassium 4.6, chloride 102, bicarb 33, BUN 17, creatinine 0.6, glucose 104, calcium 8.8, magnesium 2.1. CRP 2.88. TSH 3.25. MICROBIOLOGY: Blood cultures two sets were negative. Wound culture with Pseudomonas aeruginosa intermediate to quinolones, moderate growth. Full cultures are not finalized. IMPRESSION This is a pleasant 72-year-old female with chronic venous ulcers was admitted with bilateral lower extremity cellulitis and infection of her venous ulcers that has spread to the mid thighs. The patient is doing better on intravenous (IV) Zosyn. Cultures are pending. PLAN: Continue with IV Zosyn at this time. Consultation with Dr. Alonso has already been done. Will continue with IV antibiotics for probably a total of 10-14 days as the patient will have resistant Pseudomonas and will not have any bioavailable oral options to treat her Pseudomonas. Thank you for the consultation.
[2017-07-11] MEDS: RAMELTEON 8 MG TAB (ROZEREM) PO SCH (20:07)
[2017-07-11 22:00] VITALS: BP 148/68
[2017-07-12] MEDS: MEROPENEM INJ 1 GM in D5W MINI-BAG PLUS 100 ML IV SCH ×3 (01:07→18:46)
[2017-07-12] MEDS: LEVOTHYROXINE 75MCG TABLET (0.075MG) PO SCH (05:13)
[2017-07-12] MEDS: LEVOTHYROXINE 100MCG TABLET (0.1MG) PO SCH (05:13)
[2017-07-12 06:00] VITALS: BP 148/68
[2017-07-12 06:54] LABS: BASO % 0.9 % (0.0-1.0); EOS # 0.3 10^3/uL (0.0-0.50); EOS % 5.7 % (0.0-3.0); IMMATURE GRANULOCYTE % 0.2 % (0-0); LYMPH # 1.1 10^3/uL (1.5-4.5); MEAN CORPUSCULAR HEMOGLOBIN 32.4 pg (27.0-33.0); MEAN CORPUSCULAR VOLUME 101.4 fl (80.0-96.0); MONO # 0.4 10^3/uL (0.0-0.8); MONO % 9.2 % (0.0-5.0); NEUTROPHILS # 2.8 10^3/uL (1.8-7.7); PLATELET COUNT, AUTOMATED 242 10^3/uL (150-450); RED CELL DISTRIBUTION WIDTH 14.1 % (11.5-14.5); WHITE BLOOD COUNT 4.6 10^3/uL (4.0-10.0)
[2017-07-12 07:14] LABS: ANION GAP 4 MEQ/L (8-16); BLOOD UREA NITROGEN 16 MG/DL (7-18); CALCIUM LEVEL 8.7 MG/DL (8.8-10.2); CARBON DIOXIDE LEVEL 33 MEQ/L (21-32); CHLORIDE LEVEL 101 MEQ/L (98-107); CREATININE FOR GFR 0.59 MG/DL (0.55-1.02); GLOMERULAR FILTRATION RATE > 60.0 (>39); GLUCOSE, FASTING 96 MG/DL (83-110); MAGNESIUM LEVEL 2.1 MG/DL (1.8-2.4); POTASSIUM SERUM 4.6 MEQ/L (3.5-5.1); SODIUM LEVEL 138 MEQ/L (136-145)
[2017-07-12] MEDS ORDERED: INFLUENZA VIRUS VACCINE HIGH DOSE 0.5 ML SYRINGE (90662) IM ONE (09:00)
[2017-07-12] MEDS: SENOKOT S TAB PO SCH ×2 (09:00→21:00)
[2017-07-12] MEDS: MULTIVITAMINS/MINERALS THERAP 1 TAB PO SCH (09:41)
[2017-07-12] MEDS: ENOXAPARIN 40 MG/0.4 ML SYRINGE (J1650) SC SCH (09:41)
[2017-07-12] MEDS: FUROSEMIDE 20 MG TAB PO SCH (09:42)
[2017-07-12] MEDS: ATENOLOL 50 MG TAB PO SCH (09:42)
[2017-07-12] MEDS: MORPHINE 2 MG/ML 1ML SYRINGE IV PRN (09:51)
[2017-07-12 14:00] VITALS: BP 145/67
--- NOTE | 2017-07-12 14:40 | IPNPDOC ---
Date Seen The patient was seen on 07/12/17. Progress Note SUBJECTIVE: Patient is a 72 yo female with lower extremity cellulitis and venous stasis ulcers. Denies: CP, SOB, f/c/r, n/v/d. Tolerating PO intake. Voiding fine, no issues with BM's OBJECTIVE PHYSICAL EXAMINATION: VITAL SIGNS: Please see below. GENERAL: [NAD A&OX3] HEENT: [PERRLA, throat clear, neck supple, no JVD] CARDIOVASCULAR: [RRR]. RESPIRATORY: [CTA bilaterally]. ABDOMINAL: [soft, NT/ND, normoactive bowel sounds, no rebound] EXTREMITIES: [mild edema, erythema bilateral lower extremities to just below the knees. No calf tenderness] NEUROLOGICAL: [CN II-XII Grossly intact. no deficits] PSYCHOLOGICAL: [negative] LABORATORY DATA: Please see below. MICROBIOLOGY: Wound cultures positive for Citrobacter, Pseudomonas and MRSA DVT prophylaxis ordered?: [YES] ASSESSMENT AND PLAN: This is a 72 yo female with wound infection and venous stasis ulcers. PROBLEMS: 1. Cellulitis of lower extremities with venous stasis ulcers open wounds: multiple organisms (Citrobacter, Pseudomonas and MRSA). Afebrile, normal white count. CRP 3.24 Continue Meropenem and added IV Vanco. Appreciate Dr. Hastings's input, patient likely needs 10-14 days IV antibiotics. 2. Hypertension, stable: Continue home meds / atenolol 3. Hypothyroidism, chronic and stable. 4. Slight drop in her hemoglobin after admission: This is likely dilutional and appears stable. We'll repeat in the morning. 5. DVT prophylaxis: Lovenox subcutaneous DISPOSITION: Due to the need for ongoing IV antibiotics she'll likely need to remained hospitalized for the full course; however, we may want to consider insertion of PICC line on Friday. VS, I&O, 24H, Fishbone Vital Signs/I&O Vital Signs Date Time Temp Pulse Resp B/P (MAP) Pulse Ox O2 Delivery O2 Flow Rate FiO2 07/12/17 10:01 18 07/12/17 09:42 98 148/68 07/12/17 09:00 Room Air 07/12/17 06:00 97.6 96 07/11/17 06:00 2.0 I&O- Last 24 Hours up to 6 AM 07/13/17 06:00 Intake Total 360 ml Output Total 550 ml Balance -190 ml Laboratory Data 24H LABS Laboratory Tests 2 07/12/17 06:30: Immature Granulocyte % (Auto) 0.2H, White Blood Count 4.6, Red Blood Count 3.67L , Hemoglobin 11.9L, Hematocrit 37.2, Mean Corpuscular Volume 101.4H, Mean Corpuscular Hemoglobin 32.4, Mean Corpuscular Hemoglobin Concent 32.0, Red Cell Distribution Width 14.1, Platelet Count 242, Neutrophils (%) (Auto) 61.0, Lymphocytes (%) (Auto) 23.0L, Monocytes (%) (Auto) 9.2H, Eosinophils (%) (Auto) 5.7H, Basophils (%) (Auto) 0.9, Neutrophils # (Auto) 2.8, Lymphocytes # (Auto) 1.1L, Monocytes # (Auto) 0.4, Eosinophils # (Auto) 0.3, Basophils # (Auto) 0.0, Immature Granulocyte # (Auto) 0.0, Nucleated Red Blood Cells % (auto) 0.0, Anion Gap 4L, Glomerular Filtration Rate > 60.0, Blood Urea Nitrogen 16, Creatinine 0.59, Sodium Level 138, Potassium Level 4.6, Chloride Level 101, Carbon Dioxide Level 33H, Calcium Level 8.7L, Magnesium Level 2.1, C-Reactive Protein, Quantitative 3.24H CBC/BMP Laboratory Tests 07/12/17 06:30 Red Blood Count 3.67 L, Mean Corpuscular Volume 101.4 H, Mean Corpuscular Hemoglobin 32.4, Mean Corpuscular Hemoglobin Concent 32.0, Red Cell Distribution Width 14.1, Neutrophils (%) (Auto) 61.0, Lymphocytes (%) (Auto) 23.0 L, Monocytes (%) (Auto) 9.2 H, Eosinophils (%) (Auto) 5.7 H, Basophils (%) (Auto) 0.9, Neutrophils # (Auto) 2.8, Lymphocytes # (Auto) 1.1 L, Monocytes # ( Auto) 0.4, Eosinophils # (Auto) 0.3, Basophils # (Auto) 0.0, Calcium Level 8.7 L Microbiology Microbiology 07/09/17 Blood Culture - Preliminary, Resulted No Growth after 48 hours. All Specime... 07/09/17 Blood Culture - Preliminary, Resulted No Growth after 48 hours. All Specime... 07/09/17 Gram Stain - Final, Complete 07/09/17 Wound Culture - Final, Complete Citrobacter Freundii Pseudomonas Aeruginosa 07/09/17 Gram Stain - Final, Complete 07/09/17 Wound Culture - Final, Complete Staph.aureus Methicillin Resis JULIOCESAR CHOI DO Jul 12, 2017 14:40
[2017-07-12] MEDS: VANCOMYCIN HCL 1,000 MG, VIAL MATE ADAPTER 1 EACH in D5W 250 ML IV SCH (16:04)
[2017-07-12] MEDS: IBUPROFEN 800 MG TAB PO PRN (16:14)
[2017-07-12] MEDS ORDERED: VANCOMYCIN HCL 1,000 MG, VIAL MATE ADAPTER 1 EACH in D5W 250 ML IV ONE (17:00)
--- NOTE | 2017-07-12 19:32 | PHACANCOPD ---
PHARMACY VANCOMYCIN DOSING Pt Demographics Demographics Patient Age:72 , Weight:158.600 , Gender: female Adjusted Body Weight Date: 07/12/17, Adjusted Body Weight: [94.88] Kg Events Past 24 Hours Events Past 24 Hours: NO: Dialysis, Diuretic Therapy, Change in CrCl, Fever, Elevation in WBC, Pending Diagnostics, Pending Procedures, Other Vancomycin Vancomycin indication: SKIN/SOFT TISSUE INFECTION Vancomycin Target Ranges: 15-20 mcg/ml Vancomycin Load Y/N: Yes Load Dose Date Time Vancomycin Load Dose: 2G IV Date: 07/12/17 Time: 16:00 Vancomycin Dose Date: 07/12/17. Current Vancomycin Dose: [1G IV Q12H 07/13/17 @04] Intermittent Dosing?: No Labs Labs Item Value Date Time Creatinine 0.54 MG/DL L 07/10/17 0655 Creatinine 0.56 MG/DL 07/11/17 0645 Creatinine 0.59 MG/DL 07/12/17 0630 Micro Microbiology 07/09/17 Blood Culture - Preliminary, Resulted No Growth after 48 hours. All Specime... 07/09/17 Blood Culture - Preliminary, Resulted No Growth after 48 hours. All Specime... 07/09/17 Gram Stain - Final, Complete 07/09/17 Wound Culture - Final, Complete Citrobacter Freundii Pseudomonas Aeruginosa 07/09/17 Gram Stain - Final, Complete 07/09/17 Wound Culture - Final, Complete Staph.aureus Methicillin Resis Creatinine Clearance Date:07/12/17. Creatinine Clearance: [77.9ML/MIN.]. Assessment and Plan Maintaining Current Dose?: Yes Reason for dose change: No Dose Change Pharmacist Note Pharmacist Note Date: 07/12/17. Pharmacist note: PT is a 72 y/o female MRSA positive being treated with vancomycin for cellulitis goal trough 15-20mcg/ml. Pt has a history of vancomycin therapy here at [facility] in the past. To achieve goal a 2g loading dose was started @16:00. Maintenance therapy will consist of 1g iv q12h starting 07/13 @04:00. We will continue to monitor and adjust dose as needed. [facility] Jul 12, 2017 19:32
[2017-07-12] MEDS: RAMELTEON 8 MG TAB (ROZEREM) PO SCH (21:11)
[2017-07-12 22:00] VITALS: BP 138/70
[2017-07-13] MEDS: IBUPROFEN 800 MG TAB PO PRN ×2 (01:16→18:15)
[2017-07-13] MEDS: MEROPENEM INJ 1 GM in D5W MINI-BAG PLUS 100 ML IV SCH ×3 (01:16→18:14)
[2017-07-13] MEDS: VANCOMYCIN HCL 1,000 MG, VIAL MATE ADAPTER 1 EACH in D5W 250 ML IV SCH ×2 (03:11→16:32)
[2017-07-13] MEDS: LEVOTHYROXINE 100MCG TABLET (0.1MG) PO SCH (05:55)
[2017-07-13] MEDS: LEVOTHYROXINE 75MCG TABLET (0.075MG) PO SCH (05:55)
[2017-07-13 06:00] VITALS: BP 151/60
[2017-07-13 07:09] LABS: BASO % 0.6 % (0.0-1.0); EOS # 0.3 10^3/uL (0.0-0.50); EOS % 4.9 % (0.0-3.0); IMMATURE GRANULOCYTE % 0.2 % (0-0); LYMPH # 0.9 10^3/uL (1.5-4.5); LYMPH % 17.5 % (24.0-44.0); MEAN CORPUSCULAR HEMOGLOBIN 31.8 pg (27.0-33.0); MEAN CORPUSCULAR HGB CONC 31.5 g/dl (32.0-36.5); MEAN CORPUSCULAR VOLUME 100.8 fl (80.0-96.0); MONO # 0.5 10^3/uL (0.0-0.8); MONO % 9.2 % (0.0-5.0); NEUTROPHILS # 3.6 10^3/uL (1.8-7.7); NEUTROPHILS % 67.6 % (36.0-66.0); PLATELET COUNT, AUTOMATED 237 10^3/uL (150-450); RED CELL DISTRIBUTION WIDTH 14.2 % (11.5-14.5); WHITE BLOOD COUNT 5.3 10^3/uL (4.0-10.0)
[2017-07-13 07:24] LABS: ANION GAP 6 MEQ/L (8-16); BLOOD UREA NITROGEN 13 MG/DL (7-18); CALCIUM LEVEL 8.2 MG/DL (8.8-10.2); CARBON DIOXIDE LEVEL 30 MEQ/L (21-32); CHLORIDE LEVEL 103 MEQ/L (98-107); CREATININE FOR GFR 0.54 MG/DL (0.55-1.02); GLOMERULAR FILTRATION RATE > 60.0 (>39); GLUCOSE, FASTING 103 MG/DL (83-110); MAGNESIUM LEVEL 2.2 MG/DL (1.8-2.4); POTASSIUM SERUM 4.4 MEQ/L (3.5-5.1); SODIUM LEVEL 139 MEQ/L (136-145)
[2017-07-13] MEDS: FUROSEMIDE 20 MG TAB PO SCH (07:27)
[2017-07-13] MEDS: SENOKOT S TAB PO SCH ×2 (07:27→21:00)
[2017-07-13] MEDS: ATENOLOL 50 MG TAB PO SCH (07:27)
[2017-07-13] MEDS: MULTIVITAMINS/MINERALS THERAP 1 TAB PO SCH (07:27)
[2017-07-13] MEDS: ENOXAPARIN 40 MG/0.4 ML SYRINGE (J1650) SC SCH (07:28)
--- NOTE | 2017-07-13 13:08 | IPNPDOC ---
Date Seen The patient was seen on 07/13/17. Progress Note SUBJECTIVE: Patient is a 72yo female seen at bedside. Resting comfortably. No overnight issues. Denies: f/c/r, n/v/d, CP, SOB, productive cough/sputum or hemoptysis. Tolerating PO intake. Voiding fine, regular BMs. OBJECTIVE PHYSICAL EXAMINATION: VITAL SIGNS: Please see below. GENERAL: [NAD, A&OX3] HEENT: [PERRLA, throat clear, neck supple] CARDIOVASCULAR: [RRR]. RESPIRATORY: [CTA bilaterally]. ABDOMINAL: [soft, NT/ND, normoactive bowel sounds] EXTREMITIES: [erythema and swelling bilaterally lower extremities about the same as yesterday.] NEUROLOGICAL: [CN II-XII grossly intact, no deficits] PSYCHOLOGICAL: [negative.] LABORATORY DATA: Please see below. MICROBIOLOGY: Please see below. DVT prophylaxis ordered?: [yes] ASSESSMENT AND PLAN: This is a 72 yo female with bilateral LE cellulitis likely requiring prolonged antibiotic tx. PROBLEMS: 1. Cellulitis of lower extremities with venous stasis ulcers open wounds: multiple organisms (Citrobacter, Pseudomonas and MRSA). Afebrile, normal white count. CRP 2.13 (downward trend) Continue Meropenem and added IV Vanco. Appreciate Dr. Hastings's input, patient likely needs 10-14 days IV antibiotics. PICC line ordered and Dr. Hastings back tomorrow. 2. Hypertension, stable: Continue home meds / atenolol 3. Hypothyroidism, chronic and stable. 4. Slight drop in her hemoglobin after admission: This is likely dilutional and appears stable. We'll repeat tomorrow. 5. DVT prophylaxis: Lovenox subcutaneous DISPOSITION: Due to the need for ongoing IV antibiotics she'll likely need a PICC line. We discussed the need for multiple doses of IV Antibiotics and she says her is capable of giving her injections at home. Recommend he comes in to demonstrate proficiency and PFS/nursing to help determine any home health needs tomorrow. VS, I&O, 24H, Fishbone Vital Signs/I&O Vital Signs Date Time Temp Pulse Resp B/P (MAP) Pulse Ox O2 Delivery O2 Flow Rate FiO2 07/13/17 09:28 Room Air 07/13/17 07:27 60 151/60 07/13/17 06:00 97.3 18 96 07/11/17 06:00 2.0 I&O- Last 24 Hours up to 6 AM 07/14/17 06:00 Intake Total 300 ml Output Total 850 ml Balance -550 ml Laboratory Data 24H LABS Laboratory Tests 2 07/13/17 06:40: Immature Granulocyte % (Auto) 0.2H, White Blood Count 5.3, Red Blood Count 3.65L , Hemoglobin 11.6L, Hematocrit 36.8, Mean Corpuscular Volume 100.8H, Mean Corpuscular Hemoglobin 31.8, Mean Corpuscular Hemoglobin Concent 31.5L, Red Cell Distribution Width 14.2, Platelet Count 237, Neutrophils (%) (Auto) 67.6H, Lymphocytes (%) (Auto) 17.5L, Monocytes (%) (Auto) 9.2H, Eosinophils (%) (Auto) 4.9H, Basophils (%) (Auto) 0.6, Neutrophils # (Auto) 3.6, Lymphocytes # (Auto) 0.9L, Monocytes # (Auto) 0.5, Eosinophils # (Auto) 0.3, Basophils # (Auto) 0.0, Immature Granulocyte # (Auto) 0.0, Nucleated Red Blood Cells % (auto) 0.0, Anion Gap 6L, Glomerular Filtration Rate > 60.0, Blood Urea Nitrogen 13, Creatinine 0.54L, Sodium Level 139, Potassium Level 4.4, Chloride Level 103, Carbon Dioxide Level 30, Calcium Level 8.2L, Magnesium Level 2.2, C-Reactive Protein, Quantitative 2.13H CBC/BMP Laboratory Tests 07/13/17 06:40 Red Blood Count 3.65 L, Mean Corpuscular Volume 100.8 H, Mean Corpuscular Hemoglobin 31.8, Mean Corpuscular Hemoglobin Concent 31.5 L, Red Cell Distribution Width 14.2, Neutrophils (%) (Auto) 67.6 H, Lymphocytes (%) (Auto) 17.5 L, Monocytes (%) (Auto) 9.2 H, Eosinophils (%) (Auto) 4.9 H, Basophils (%) (Auto) 0.6, Neutrophils # (Auto) 3.6, Lymphocytes # (Auto) 0.9 L, Monocytes # ( Auto) 0.5, Eosinophils # (Auto) 0.3, Basophils # (Auto) 0.0, Calcium Level 8.2 L Microbiology Microbiology 07/09/17 Blood Culture - Preliminary, Resulted No Growth after 72 hours. All specime... 07/09/17 Blood Culture - Preliminary, Resulted No Growth after 72 hours. All specime... 07/09/17 Gram Stain - Final, Complete 07/09/17 Wound Culture - Final, Complete Citrobacter Freundii Pseudomonas Aeruginosa 07/09/17 Gram Stain - Final, Complete 07/09/17 Wound Culture - Final, Complete Staph.aureus Methicillin Resis JULIOCESAR CHOI DO Jul 13, 2017 13:08
[2017-07-13 16:00] VITALS: BP 177/89
[2017-07-13 17:14] VITALS: BP 148/72
[2017-07-13] MEDS: RAMELTEON 8 MG TAB (ROZEREM) PO SCH (21:08)
[2017-07-13 22:00] VITALS: BP 148/70
[2017-07-14] MEDS: MEROPENEM INJ 1 GM in D5W MINI-BAG PLUS 100 ML IV SCH ×3 (01:41→17:40)
[2017-07-14] MEDS: VANCOMYCIN HCL 1,000 MG, VIAL MATE ADAPTER 1 EACH in D5W 250 ML IV SCH ×2 (03:02→16:27)
[2017-07-14] MEDS: IBUPROFEN 800 MG TAB PO PRN ×3 (05:55→17:38)
[2017-07-14] MEDS: LEVOTHYROXINE 100MCG TABLET (0.1MG) PO SCH (05:55)
[2017-07-14] MEDS: LEVOTHYROXINE 75MCG TABLET (0.075MG) PO SCH (05:55)
[2017-07-14 06:00] VITALS: BP 142/64
[2017-07-14 06:50] LABS: BASO # 0.1 10^3/uL (0.0-0.2); BASO % 0.8 % (0.0-1.0); EOS # 0.2 10^3/uL (0.0-0.50); EOS % 2.6 % (0.0-3.0); IMMATURE GRANULOCYTE % 0.3 % (0-0); LYMPH # 0.7 10^3/uL (1.5-4.5); LYMPH % 11.1 % (24.0-44.0); MEAN CORPUSCULAR HEMOGLOBIN 31.2 pg (27.0-33.0); MEAN CORPUSCULAR HGB CONC 31.4 g/dl (32.0-36.5); MEAN CORPUSCULAR VOLUME 99.5 fl (80.0-96.0); MONO # 0.5 10^3/uL (0.0-0.8); MONO % 7.7 % (0.0-5.0); NEUTROPHILS # 5.1 10^3/uL (1.8-7.7); NEUTROPHILS % 77.5 % (36.0-66.0); PLATELET COUNT, AUTOMATED 247 10^3/uL (150-450); RED CELL DISTRIBUTION WIDTH 14.2 % (11.5-14.5); WHITE BLOOD COUNT 6.6 10^3/uL (4.0-10.0)
[2017-07-14 07:06] LABS: ANION GAP 7 MEQ/L (8-16); BLOOD UREA NITROGEN 13 MG/DL (7-18); CALCIUM LEVEL 8.8 MG/DL (8.8-10.2); CARBON DIOXIDE LEVEL 29 MEQ/L (21-32); CHLORIDE LEVEL 103 MEQ/L (98-107); CREATININE FOR GFR 0.48 MG/DL (0.55-1.02); GLOMERULAR FILTRATION RATE > 60.0 (>39); GLUCOSE, FASTING 110 MG/DL (83-110); MAGNESIUM LEVEL 2.2 MG/DL (1.8-2.4); POTASSIUM SERUM 3.9 MEQ/L (3.5-5.1); SODIUM LEVEL 139 MEQ/L (136-145)
[2017-07-14] MEDS: MULTIVITAMINS/MINERALS THERAP 1 TAB PO SCH (07:49)
[2017-07-14] MEDS: ATENOLOL 50 MG TAB PO SCH (07:49)
[2017-07-14] MEDS: SENOKOT S TAB PO SCH ×2 (07:49→20:29)
[2017-07-14] MEDS: ENOXAPARIN 40 MG/0.4 ML SYRINGE (J1650) SC SCH (07:50)
[2017-07-14] MEDS: SANTYL OINT 30GM TOP SCH (07:51)
[2017-07-14 08:00] VITALS: BP 171/83
--- NOTE | 2017-07-14 08:41 | IPN ---
DATE OF SERVICE: 07/14/2017 Stephanie was seen on her way down to get a PICC line placed. I have reviewed her notes. Patient denies any chest pain or shortness of breath. She is anxious about having the PICC line placed but we discussed this. PHYSICAL EXAMINATION: Vital signs stable. Afebrile. Lungs: Clear. Heart: Regular rhythm. Abdomen: Soft, nontender. Legs are dressed. LABS: CBC stable. CMP is unremarkable. Vancomycin troth levels are being followed. IMPRESSION: Cellulitis lower extremity with venous ulcers, polymicrobial culture. PLAN: 1. She is on meropenem. Vancomycin has been added. PICC line is being placed. Plan is for 10-14 days of IV antibiotics. 2. Hypertension, stable. 3. Hypothyroidism, stable. The plan is to go home with home health nursing and home IV antibiotics. I will ask Dr. Hastings to help set this up for us.
[2017-07-14] MEDS: FUROSEMIDE 20 MG TAB PO SCH (08:57)
[2017-07-14] MEDS: MORPHINE 2 MG/ML 1ML SYRINGE IV PRN (08:58)
[2017-07-14] MEDS: EUCERIN 120GM CREAM EXT SCH (09:00)
[2017-07-14 10:09] VITALS: BP 144/81
[2017-07-14] MEDS: ASPIRIN ENTERIC 325 MG TAB PO PRN (11:56)
[2017-07-14 14:00] VITALS: BP 128/59
--- NOTE | 2017-07-14 18:13 | IPN ---
DATE: 07/14/2017 Mrs. Sales feels much better. She states her leg swelling has decreased as well as the erythema. The wound dressings were changed this afternoon and therefore, I did not get to see the ulcers, but she states that they are less oozy and less painful. LABORATORY DATA: White count is 6.6, hemoglobin 11.9, hematocrit 37.9, platelets 247, 77% neutrophils, 11% lymphocytes. Sodium 139, potassium 3.9, chloride 103, bicarbonate 29, BUN 13, creatinine 0.5, glucose 110, calcium 8.8, magnesium 2.2, CRP 2.35 down from 3.2. Vancomycin trough was 13. Wound cultures: Right leg had methicillin-resistant Staphylococcus aureus (MRSA). Left leg had Citrobacter and Pseudomonas. Currently the patient is on day #3 of intravenous (IV) vancomycin and day #5 of IV meropenem. Blood cultures were negative. On physical exam, temperature is 97.9, pulse 63, respirations 18, blood pressure 128/59, oxygen saturation 97% on room air. Heart: Normal S1, S2. No murmurs. Abdomen is soft, morbidly obese, nontender. Lungs are clear. A right arm peripherally inserted central catheter (PICC) line was placed. The patient complains of some pain at the site. No erythema. Extremities wrapped with Coban. There is erythema extending to the upper thighs but has definitely decreased in color, light pink. IMPRESSION: 1. Bilateral lower extremity cellulitis with venous ulcers. Right leg is culture positive for Pseudomonas and Citrobacter, intermediate to quinolones. Left leg positive for MRSA. 2. Varicose veins with venous ulcers. 3. Insomnia. The patient states she has not been able to sleep for three nights with Rozerem and would like something different. PLAN: 1. Discontinue IV vancomycin. The patient could be switched to linezolid 600 mg by mouth twice a day. 2. Continue IV meropenem. She will need 2 weeks of IV meropenem, which could be given at home by her . He has done it already in the past. 3. Discontinue Rozerem, switch to Ambien 10 mg by mouth nightly. Add Eucerin cream to help with dryness in the upper thighs, to be applied once or twice a day.
[2017-07-14 22:00] VITALS: BP 130/60
[2017-07-14] MEDS: zolPIDEM TARTRATE 10MG TAB PO SCH (22:10)
[2017-07-14] MEDS: LINEZOLID 600MG TABLET (ZYVOX) PO SCH (22:10)
[2017-07-15] MEDS: MEROPENEM INJ 1 GM in D5W MINI-BAG PLUS 100 ML IV SCH ×3 (01:14→17:01)
[2017-07-15] MEDS: LEVOTHYROXINE 100MCG TABLET (0.1MG) PO SCH (05:12)
[2017-07-15] MEDS: LEVOTHYROXINE 75MCG TABLET (0.075MG) PO SCH (05:12)
[2017-07-15] MEDS: SODIUM CHLORIDE 0.9% INJ 10 ML SYR IV SCH ×2 (05:13→17:01)
[2017-07-15 05:29] LABS: BASO % 0.6 % (0.0-1.0); EOS # 0.2 10^3/uL (0.0-0.50); EOS % 3.7 % (0.0-3.0); IMMATURE GRANULOCYTE % 0.3 % (0-0); LYMPH # 1.3 10^3/uL (1.5-4.5); LYMPH % 20.8 % (24.0-44.0); MEAN CORPUSCULAR HEMOGLOBIN 31.4 pg (27.0-33.0); MEAN CORPUSCULAR HGB CONC 31.3 g/dl (32.0-36.5); MEAN CORPUSCULAR VOLUME 100.3 fl (80.0-96.0); MONO # 0.6 10^3/uL (0.0-0.8); MONO % 8.5 % (0.0-5.0); NEUTROPHILS # 4.3 10^3/uL (1.8-7.7); NEUTROPHILS % 66.1 % (36.0-66.0); PLATELET COUNT, AUTOMATED 266 10^3/uL (150-450); WHITE BLOOD COUNT 6.5 10^3/uL (4.0-10.0)
[2017-07-15 06:00] VITALS: BP 130/90
[2017-07-15 06:06] LABS: ANION GAP 5 MEQ/L (8-16); BLOOD UREA NITROGEN 11 MG/DL (7-18); CALCIUM LEVEL 8.9 MG/DL (8.8-10.2); CARBON DIOXIDE LEVEL 32 MEQ/L (21-32); CHLORIDE LEVEL 102 MEQ/L (98-107); CREATININE FOR GFR 0.51 MG/DL (0.55-1.02); GLOMERULAR FILTRATION RATE > 60.0 (>39); GLUCOSE, FASTING 98 MG/DL (83-110); POTASSIUM SERUM 4.3 MEQ/L (3.5-5.1); SODIUM LEVEL 139 MEQ/L (136-145)
[2017-07-15] MEDS: FUROSEMIDE 20 MG TAB PO SCH (08:13)
[2017-07-15] MEDS: LINEZOLID 600MG TABLET (ZYVOX) PO SCH ×2 (08:13→22:04)
[2017-07-15] MEDS: MULTIVITAMINS/MINERALS THERAP 1 TAB PO SCH (08:14)
[2017-07-15] MEDS: EUCERIN 120GM CREAM EXT SCH (08:14)
[2017-07-15] MEDS: ATENOLOL 50 MG TAB PO SCH (08:14)
[2017-07-15] MEDS: ENOXAPARIN 40 MG/0.4 ML SYRINGE (J1650) SC SCH (08:15)
--- NOTE | 2017-07-15 08:33 | IPN ---
DATE: 07/15/2017 Stephanie is seen on [facility] while rounding for the hospitalist. She had a peripherally inserted central catheter (PICC) line yesterday. She had chronic wound problems. She used to see Dr. Alonso. I was going to suggest perhaps a video consult, but she is declining this. She has a wound doctor in [place] and does not want Dr. Alonso involved with her current wound care. She has bilateral lower extremity cellulitis with venous ulcers, polymicrobial growth on this. Dr. Hastings saw her yesterday and plans are to arrange for some home IV antibiotic. She is on oral linezolid 600 mg twice a day and 2 weeks of IV meropenem. PHYSICAL EXAMINATION: 97.4, 130/90, pulse 74, respiratory rate 14, 96% oxygen saturation. Alert, conversant and no distress. LUNGS: Clear. HEART: Regular rhythm. ABDOMEN: Soft, nontender. No masses. EXTREMITIES: No peripheral edema. LABORATORY DATA: CBC is unchanged. C-reactive protein is up to 7.29. IMPRESSION: 1. Bilateral lower extremity cellulitis with venous ulcer. Infectious disease has been consulted and appreciate their input. Antibiotics as above. Her C-reactive protein took a bump today and I am concerned about that. She is declining local wound consultation, as noted above. 2. Macrocytosis. Check B12, folate, free kappa lambda light chains. She had normal TSH. 3. Hypertension. Blood pressure is well controlled on current regimen. 4. Hypothyroidism. Stable on current dose of levothyroxine 75 mcg daily. 5. Insomnia. Infectious disease started Ambien 10 mg at night last evening. Patient and family services (PFS) will need to get involved to help arrange home antibiotic therapy, probably could go home once we are sure that the wounds are heading in the right direction. I am concerned about the rise in the C-reactive protein from yesterday.
[2017-07-15] MEDS: SENOKOT S TAB PO SCH ×2 (08:51→22:03)
[2017-07-15] MEDS: SODIUM CHLORIDE 0.9% INJ 10 ML SYR IV PRN (10:40)
[2017-07-15 12:02] LABS: VITAMIN B12 LEVEL 617 PG/ML (247-911)
[2017-07-15 14:00] VITALS: BP 153/80
--- NOTE | 2017-07-15 19:38 | REP ---
Procedure: PICC line insertion with Chelsea-Ko The procedure was performed under the direct supervision of Dr. Callahan. The risks and benefits of the procedure were explained to the patient and informed consent was obtained. The right basilic vein was localized using ultrasound guidance. The skin was prepped and draped in a sterile fashion. 2% lidocaine was used as a local anesthetic. Using ultrasound guidance the basilic vein was cannulated and a 0.018 guidewire was inserted and advanced to the SVC using fluoroscopic guidance. The needle was removed and a 4.5 Filipino dilator and peel-away sheath was inserted over the guide wire. A 4.5 Filipino single lumen catheter was cut to length of 44 cm. The dilator was removed and the catheter was inserted over the guide wire with the tip ending in the SVC. The peel-away sheath was removed and the catheter was flushed with heparinized saline as per Hospital protocol. The catheter was affixed to the skin and a sterile dressing was applied. The the patient tolerated the procedure well and there were no immediate complications. 0.3 minutes of fluoro time was utilized for this procedure. Reviewed by ORA Valdes 07/14/2017 03:36 PSigned by Jerry Callahan MD 07/15/2017 07:29 P
[2017-07-15 22:00] VITALS: BP 136/64
[2017-07-15] MEDS: zolPIDEM TARTRATE 10MG TAB PO SCH (22:03)
[2017-07-15] MEDS: NYSTATIN 100,000 UNITS/GM TOPICAL PWD 15 GM TOP SCH (22:05)
[2017-07-16] MEDS: IBUPROFEN 800 MG TAB PO PRN ×2 (00:18→17:29)
[2017-07-16] MEDS: MEROPENEM INJ 1 GM in D5W MINI-BAG PLUS 100 ML IV SCH ×3 (01:34→17:29)
[2017-07-16] MEDS: LEVOTHYROXINE 100MCG TABLET (0.1MG) PO SCH (05:15)
[2017-07-16] MEDS: LEVOTHYROXINE 75MCG TABLET (0.075MG) PO SCH (05:15)
[2017-07-16] MEDS: SODIUM CHLORIDE 0.9% INJ 10 ML SYR IV SCH ×2 (05:16→17:29)
[2017-07-16 05:48] LABS: ANION GAP 7 MEQ/L (8-16); BLOOD UREA NITROGEN 13 MG/DL (7-18); CALCIUM LEVEL 8.9 MG/DL (8.8-10.2); CARBON DIOXIDE LEVEL 30 MEQ/L (21-32); CHLORIDE LEVEL 102 MEQ/L (98-107); CREATININE FOR GFR 0.68 MG/DL (0.55-1.02); GLOMERULAR FILTRATION RATE > 60.0 (>39); GLUCOSE, FASTING 104 MG/DL (83-110); MAGNESIUM LEVEL 2.1 MG/DL (1.8-2.4); POTASSIUM SERUM 4.5 MEQ/L (3.5-5.1); SODIUM LEVEL 139 MEQ/L (136-145)
[2017-07-16 05:54] LABS: BASO # 0.1 10^3/uL (0.0-0.2); EOS # 0.3 10^3/uL (0.0-0.50); EOS % 4.9 % (0.0-3.0); IMMATURE GRANULOCYTE % 0.3 % (0-0); LYMPH # 1.8 10^3/uL (1.5-4.5); LYMPH % 29.5 % (24.0-44.0); MEAN CORPUSCULAR HEMOGLOBIN 30.9 pg (27.0-33.0); MEAN CORPUSCULAR VOLUME 99.8 fl (80.0-96.0); MONO # 0.7 10^3/uL (0.0-0.8); MONO % 10.6 % (0.0-5.0); NEUTROPHILS # 3.3 10^3/uL (1.8-7.7); NEUTROPHILS % 53.7 % (36.0-66.0); PLATELET COUNT, AUTOMATED 303 10^3/uL (150-450); RED CELL DISTRIBUTION WIDTH 13.8 % (11.5-14.5); WHITE BLOOD COUNT 6.2 10^3/uL (4.0-10.0)
[2017-07-16 06:00] VITALS: BP 144/70
[2017-07-16] MEDS ORDERED: LINE60TAB PO (08:34)
[2017-07-16] MEDS: SENOKOT S TAB PO SCH ×2 (09:00→21:00)
[2017-07-16] MEDS: MULTIVITAMINS/MINERALS THERAP 1 TAB PO SCH (10:19)
[2017-07-16] MEDS: LINEZOLID 600MG TABLET (ZYVOX) PO SCH ×2 (10:19→22:07)
[2017-07-16] MEDS: ATENOLOL 50 MG TAB PO SCH (10:19)
[2017-07-16] MEDS: FUROSEMIDE 20 MG TAB PO SCH (10:20)
[2017-07-16] MEDS: ENOXAPARIN 40 MG/0.4 ML SYRINGE (J1650) SC SCH (10:20)
[2017-07-16] MEDS: NYSTATIN 100,000 UNITS/GM TOPICAL PWD 15 GM TOP SCH ×2 (10:21→22:08)
[2017-07-16] MEDS: EUCERIN 120GM CREAM EXT SCH (10:21)
[2017-07-16] MEDS: SODIUM CHLORIDE 0.9% INJ 10 ML SYR IV PRN (11:00)
--- NOTE | 2017-07-16 15:16 | IPN ---
DATE: 07/16/2017 Patient is seen and examined. No acute events overnight. Denies any chest pain, pressure or discomfort. Patient refuses benaprotein. Denies any fevers, chills, shortness of breath. VITAL SIGNS: Temperature 97.5, pulse 70, respirations 18, blood pressure 144/70, pulse oximetry 95% on room air. LABORATORY DATA: WBC 6.2, hemoglobin and hematocrit 12.7/41, platelets 303. Chemistry: Sodium 139, potassium 4.5, chloride 102, bicarbonate 30, BUN 13, creatinine 0.68, C-reactive 6.35. PHYSICAL EXAMINATION: GENERAL: Patient alert and oriented times three, in no acute distress. HEENT: Normocephalic, atraumatic. PULMONARY: Bilaterally clear to auscultation. CARDIAC: Regular rate and rhythm, normal S1, S2. ABDOMEN: Soft, nontender. Positive bowel sounds. EXTREMITIES: Dressing is clean, dry, and intact. Pulses intact. ASSESSMENT AND PLAN: This is a 72-year-old female patient with underlying medical history of hypothyroidism, hypertension, morbid obesity, chronically infected venous stasis ulcer, insomnia, kidney stones, and pyelonephritis admitted to the hospital with cellulitis secondary to venous stasis ulcer. 1. Lower extremity cellulitis secondary to venous stasis ulcer. Multiple organisms including Pseudomonas, methicillin-resistant Staphylococcus aureus (MRSA), Citrobacter. Infectious disease, Dr. Hastings, consulted. Patient currently on meropenem and linezolid. Patient will need 14 days of antibiotic meropenem. Peripherally inserted central catheter (PICC) line in place. Need prior authorization and arrangements for home IV antibiotic infusion. 2. Hypertension. Continue current blood pressure medication. 3. Hypothyroidism. Continue Synthroid. 4. Insomnia. Continue current medication. 5. Lower extremity edema. Continue Lasix. 6. Deep venous thrombosis (DVT) prophylaxis. Continue Lovenox. DISPOSITION: Pending patient and family services (PFS) arrangement of home antibiotics linezolid and meropenem.
[2017-07-16 22:00] VITALS: BP 132/60
[2017-07-16] MEDS: zolPIDEM TARTRATE 10MG TAB PO SCH (22:07)
[2017-07-17 00:06] LABS: FREE KAPPA LIGHT CHAINS SERUM 26.6 mg/L (3.3-19.4); FREE LAMBDA LIGHT CHAINS SERUM 19.7 mg/L (5.7-26.3); KAPPA/LAMBDA RATIO SERUM 1.35 (0.26-1.65)
[2017-07-17] MEDS: IBUPROFEN 800 MG TAB PO PRN ×2 (02:11→09:32)
[2017-07-17] MEDS: LEVOTHYROXINE 75MCG TABLET (0.075MG) PO SCH (05:25)
[2017-07-17] MEDS: LEVOTHYROXINE 100MCG TABLET (0.1MG) PO SCH (05:25)
[2017-07-17] MEDS: SODIUM CHLORIDE 0.9% INJ 10 ML SYR IV SCH ×2 (05:29→18:24)
[2017-07-17 05:32] LABS: MEAN CORPUSCULAR HEMOGLOBIN 31.8 pg (27.0-33.0); MEAN CORPUSCULAR HGB CONC 31.8 g/dl (32.0-36.5); RED CELL DISTRIBUTION WIDTH 13.8 % (11.5-14.5); WHITE BLOOD COUNT 5.2 10^3/uL (4.0-10.0)
[2017-07-17 05:58] LABS: ANION GAP 4 MEQ/L (8-16); BLOOD UREA NITROGEN 15 MG/DL (7-18); CALCIUM LEVEL 8.8 MG/DL (8.8-10.2); CARBON DIOXIDE LEVEL 33 MEQ/L (21-32); CHLORIDE LEVEL 103 MEQ/L (98-107); CREATININE FOR GFR 0.58 MG/DL (0.55-1.02); GLOMERULAR FILTRATION RATE > 60.0 (>39); GLUCOSE, FASTING 98 MG/DL (83-110); POTASSIUM SERUM 4.3 MEQ/L (3.5-5.1); SODIUM LEVEL 140 MEQ/L (136-145)
[2017-07-17 06:00] VITALS: BP 146/78
[2017-07-17] MEDS: SENOKOT S TAB PO SCH (09:00)
[2017-07-17] MEDS: FUROSEMIDE 20 MG TAB PO SCH (09:00)
[2017-07-17] MEDS: SANTYL OINT 30GM TOP SCH (09:00)
[2017-07-17] MEDS: LINEZOLID 600MG TABLET (ZYVOX) PO SCH ×2 (09:31→22:09)
[2017-07-17] MEDS: ENOXAPARIN 40 MG/0.4 ML SYRINGE (J1650) SC SCH (09:32)
[2017-07-17] MEDS: MULTIVITAMINS/MINERALS THERAP 1 TAB PO SCH (09:33)
[2017-07-17] MEDS: ATENOLOL 50 MG TAB PO SCH (09:33)
[2017-07-17] MEDS: EUCERIN 120GM CREAM EXT SCH (09:33)
[2017-07-17] MEDS: NYSTATIN 100,000 UNITS/GM TOPICAL PWD 15 GM TOP SCH ×2 (09:34→22:09)
[2017-07-17 11:04] LABS: ALBUMIN % 47.9 % (55.8-66.1)
[2017-07-17 11:05] LABS: ALBUMIN 3.35 GM/DL (3.29-5.55); GAMMA GLOBULIN % 15.7 % (11.1-18.8)
[2017-07-17] MEDS ORDERED: RISATAB3 PO (11:12)
[2017-07-17] MEDS ORDERED: SANT250O8 TOP (11:12)
[2017-07-17] MEDS ORDERED: MERO1INJ IV (11:12)
[2017-07-17] MEDS: SODIUM CHLORIDE 0.9% INJ 10 ML SYR IV PRN (11:36)
[2017-07-17] MEDS: LACTOBACILLUS ACIDOPHILUS CAP (BACID) PO SCH ×3 (11:36→22:09)
[2017-07-17] MEDS: MEROPENEM INJ 1 GM in D5W MINI-BAG PLUS 100 ML IV SCH ×2 (11:36→22:08)
[2017-07-17 14:00] VITALS: BP 130/70
[2017-07-17] MEDS ORDERED: IMOD2TAB16 PO (14:12)
[2017-07-17] MEDS: LOPERAMIDE 2 MG CAP PO PRN ×3 (14:24→18:50)
--- NOTE | 2017-07-17 16:48 | IPN ---
DATE: 07/17/2017 Patient seen and examined. No acute events overnight. Denies any chest pain, pressure, or discomfort. Reported significant diarrhea, watery. Denies any abdominal pain. VITAL SIGNS: Temperature 96.9, pulse 65, respirations 18, blood pressure 146/78, pulse oximetry 95% on room air. LABORATORY DATA: WBC 5.2, hemoglobin and hematocrit 11.5/36.2, platelets 241. Chemistry: Sodium 140, potassium 4.3, chloride 103, bicarbonate 33, BUN 15, creatinine 0.58, C-reactive protein 2.64. PHYSICAL EXAMINATION: GENERAL: Patient morbidly obese, alert and oriented times three in no acute distress. HEENT: Normocephalic, atraumatic. PULMONARY: Bilaterally clear to auscultation. CARDIAC: Regular rate and rhythm. Normal S1, S2. ABDOMEN: Soft and nontender. Positive bowel sounds. EXTREMITIES: Dressing clean, dry, and intact. Edema 2+, bilateral lower extremities with venous stasis. ASSESSMENT AND PLAN: This is a 72-year-old female patient with underlying medical history of hypothyroidism, hypertension, morbid obesity, chronically infected with venous statis ulcer, insomnia, kidney stone, pyelonephritis, admitted to the hospital with cellulitis secondary to venous stasis ulcer. 1. Lower extremity cellulitis secondary to venous stasis ulcers. Multiple organisms, including pseudomonas, methicillin-resistant Staphylococcus aureus (MRSA), Citrobacter. Infectious disease, Dr. Hastings, consulted. Patient currently on meropenem and linezolid. Will need a total of 14 days of antibiotics, meropenem. Peripherally inserted central catheter (PICC) line in place. Need prior authorization for linezolid and home infusion for meropenem has been arranged. 2. Hypertension. Continue current medication. 3. Hypothyroidism. Continue Synthroid. 4. Insomnia. Continue current medication. 5. Lower extremity edema. Continue Lasix. 6. Diarrhea. Rule out Clostridium (C) difficile. If C. difficile is negative, will start Imodium. Will need commode at home. 7. Deep vein thrombosis (DVT) prophylaxis. Lovenox subcutaneous. DISPOSITION PLANNING: Pending clinical improvement of diarrhea. Patient and family services (PFS) consulted to arrange for home antibiotics and home health services for wound care.
[2017-07-17 22:00] VITALS: BP 136/82
[2017-07-17] MEDS: zolPIDEM TARTRATE 10MG TAB PO SCH (22:08)
[2017-07-18] MEDS: IBUPROFEN 800 MG TAB PO PRN (02:11)
[2017-07-18] MEDS: SODIUM CHLORIDE 0.9% INJ 10 ML SYR IV PRN (02:24)
[2017-07-18] MEDS: MEROPENEM INJ 1 GM in D5W MINI-BAG PLUS 100 ML IV SCH ×2 (05:00→12:30)
[2017-07-18] MEDS: LEVOTHYROXINE 100MCG TABLET (0.1MG) PO SCH (05:27)
[2017-07-18] MEDS: LEVOTHYROXINE 75MCG TABLET (0.075MG) PO SCH (05:27)
[2017-07-18 05:50] LABS: MEAN CORPUSCULAR HEMOGLOBIN 31.7 pg (27.0-33.0); MEAN CORPUSCULAR HGB CONC 31.9 g/dl (32.0-36.5); MEAN CORPUSCULAR VOLUME 99.5 fl (80.0-96.0); PLATELET COUNT, AUTOMATED 304 10^3/uL (150-450); RED CELL DISTRIBUTION WIDTH 13.8 % (11.5-14.5); WHITE BLOOD COUNT 6.2 10^3/uL (4.0-10.0)
[2017-07-18 06:00] VITALS: BP 122/58
[2017-07-18] MEDS: SODIUM CHLORIDE 0.9% INJ 10 ML SYR IV SCH ×2 (06:03→13:14)
[2017-07-18 06:15] LABS: ANION GAP 7 MEQ/L (8-16); BLOOD UREA NITROGEN 13 MG/DL (7-18); CARBON DIOXIDE LEVEL 30 MEQ/L (21-32); CHLORIDE LEVEL 103 MEQ/L (98-107); CREATININE FOR GFR 0.58 MG/DL (0.55-1.02); GLOMERULAR FILTRATION RATE > 60.0 (>39); GLUCOSE, FASTING 94 MG/DL (83-110); MAGNESIUM LEVEL 2.1 MG/DL (1.8-2.4); POTASSIUM SERUM 4.3 MEQ/L (3.5-5.1); SODIUM LEVEL 140 MEQ/L (136-145)
[2017-07-18 10:02] VITALS: BP 122/58
[2017-07-18] MEDS: ATENOLOL 50 MG TAB PO SCH (10:02)
[2017-07-18] MEDS: FUROSEMIDE 20 MG TAB PO SCH (10:02)
[2017-07-18] MEDS: NYSTATIN 100,000 UNITS/GM TOPICAL PWD 15 GM TOP SCH (10:02)
[2017-07-18] MEDS: MULTIVITAMINS/MINERALS THERAP 1 TAB PO SCH (10:02)
[2017-07-18] MEDS: EUCERIN 120GM CREAM EXT SCH (10:03)
[2017-07-18] MEDS: LACTOBACILLUS ACIDOPHILUS CAP (BACID) PO SCH (10:03)
[2017-07-18] MEDS: ENOXAPARIN 40 MG/0.4 ML SYRINGE (J1650) SC SCH (10:03)
[2017-07-18] MEDS: LINEZOLID 600MG TABLET (ZYVOX) PO SCH (10:03)
[2017-07-18] MEDS: LOPERAMIDE 2 MG CAP PO PRN (12:30)
--- NOTE | 2017-07-18 18:27 | DSES ---
DATE OF ADMISSION: 07/10/2017 DATE OF DISCHARGE: 07/18/2017 PRIMARY CARE PROVIDER: Dr. Ashok De Leon INFECTIOUS DISEASE: Dr. Prince Hastings FINAL DIAGNOSES: 1. Lower extremity cellulitis secondary to venostasis ulcer due to methicillin-resistant Staphylococcus aureus, pseudomonas, and Citrobacter. 2. Hypertension. 3. Hypothyroidism. 4. Diarrhea. 5. Insomnia. 6. Lower extremity edema. HISTORY OF PRESENT ILLNESS: This is a 72-year-old female patient with underlying medical history of hypothyroidism, hypertension, morbid obesity, chronically infected venous stasis ulcer, insomnia, kidney stones, pyelonephritis, presented to the emergency room, instructed by her wound care doctor in [place] to go the emergency room with skin infection of her left lower extremity. Patient stated that she saw wound care doctor at [place] the day prior to admission secondary to chronic venous stasis ulcer with purulent drainage that appears to be erythematous, warm, and infected, and her wound care doctor would like to admit her, initially to [place], but because she lives in [place] she preferred to return to [place] and see her infectious disease specialist in [place]. Thus decision was made to admit her to [facility]. Patient reported lower extremity pain and purulent drainage with subjective fever. Denies any chest pain, pressure, or discomfort, shortness of breath. Patient was admitted to the hospital. Cultures were sent. Intravenous (IV) antibiotics were started. Infectious disease was consulted given multi-organisms from culture. Wound dare was done. Patient's condition progressively improved. Given patient would require antibiotics at home, patient was on meropenem and vancomycin, later switched to linezolid and meropenem, requiring about 2 weeks in total of antibiotics as per Dr. Hastings. Patient and family services (PFS) was consulted to arrange for home infusion. Peripherally inserted central catheter (PICC) line was placed. Furthermore, patient developed diarrhea. Clostridium (C) difficile was negative. Imodium was given to the patient with improvement. Patient refused seeing Dr. Alonso at [facility], insisting on going back to see patient's outpatient wound care provider. Currently patient feels comfortable, tolerating oral in no acute distress, ready for discharge for further care as outpatient. VITAL SIGNS: Temperature 97.1, pulse 68, respirations 18, blood pressure 112/58, pulse oximetry 98% on room air. GENERAL: Patient alert, obese in no acute distress. HEENT: Normocephalic, atraumatic. PULMONARY: Bilaterally clear to auscultation. CARDIAC: Regular rate and rhythm. ABDOMEN: Soft and nontender. Positive bowel sounds. EXTREMITIES: Dressing clean, dry, and intact. Edema 2+, lower extremities, with venous stasis. LABORATORY DATA: WBC 6.2, hemoglobin and hematocrit 12.2/38.3, platelets 304. Chemistry: Sodium 140, potassium 4.3, chloride 103, bicarbonate 30, BUN 13, creatinine 0.58. Cultures positive for methicillin-resistant Staphylococcus aureus (MRSA) as well as Citrobacter and pseudomonas. DISCHARGE MEDICATIONS: - collagenase topical every 3 days - linezolid 600 mg by mouth twice a day - Imodium 2 mg by mouth as needed - meropenem 1 gram IV every 8 hours - probiotics one tablet by mouth twice a day - Tylenol 3, one tablet by mouth every 6 hours as needed - Ventolin inhaler every 4 hours as needed - aspirin 325 mg by mouth daily as needed - atenolol 50 mg by mouth daily - vitamin D 50,000 units by mouth weekly - Lasix 20 mg by mouth daily - I-Cap by mouth daily - levothyroxine 175 mcg by mouth daily - melatonin 10 mg by mouth at bedtime - meloxicam 15 mg by mouth daily - multivitamin one tablet by mouth daily - nystatin topical daily - zinc 50 mg by mouth daily DISCHARGE INSTRUCTIONS: Patient is instructed to followup with primary care provider in 7 days. Followup with wound care in 7 days. Return to the hospital if symptoms worsen. Home with home services. TIME SPENT ARRANGING AND COORDINATING DISCHARGE: 35 minutes.
== END 2017-07-18 14:45 | disposition home or self-care (01) | DRG 603 ==
LOC: M ED 19:36 → M ED INP 07-10 02:02 → M MS5PR 07-10 03:15
PROVIDERS: ADMIT Hospitalist; ATTEND Hospitalist
PROC: 02HV33Z Insertion of Infusion Device into Superior Vena Cava, Percutaneous Approach (ICD-10-PCS; principal; 2017-07-14)
DX: L03.115 Cellulitis of right lower limb (principal); Z68.44 Body mass index [BMI] 60.0-69.9, adult; L03.116 Cellulitis of left lower limb; B96.5 Pseudomonas (aeruginosa) (mallei) (pseudomallei) as the cause of diseases classified elsewhere; B95.62 Methicillin resistant Staphylococcus aureus infection as the cause of diseases classified elsewhere; E66.01 Morbid (severe) obesity due to excess calories; E03.9 Hypothyroidism, unspecified; I10 Essential (primary) hypertension; I83.019 Varicose veins of right lower extremity with ulcer of unspecified site; G47.00 Insomnia, unspecified; I83.029 Varicose veins of left lower extremity with ulcer of unspecified site; Z79.899 Other long term (current) drug therapy; Z88.0 Allergy status to penicillin; Z88.2 Allergy status to sulfonamides; Z91.048 Other nonmedicinal substance allergy status; Z91.030 Bee allergy status; Z96.653 Presence of artificial knee joint, bilateral; Z93.6 Other artificial openings of urinary tract status

== ENCOUNTER → 2017-07-28 | Outpatient (REF) | payer MEDICARE, OTHER ==
[~2017-07-28] MED LIST changes: +ECOT325T7 PO; +IMOD2TAB16 PO; +LINE60TAB PO; +MERO1INJ IV; +NYST1POW9 TOP; +RISATAB3 PO; +SANT250O8 TOP; +VITMTA PO; +ZINC50TA PO
[2017-07-28 14:31] LABS: BASO % 0.8 % (0.0-1.0); EOS % 0.8 % (0.0-3.0); IMMATURE GRANULOCYTE % 0.2 % (0-0); LYMPH % 21.4 % (24.0-44.0); MEAN CORPUSCULAR HGB CONC 31.6 g/dl (32.0-36.5); MEAN CORPUSCULAR VOLUME 97.9 fl (80.0-96.0); MONO # 0.4 10^3/uL (0.0-0.8); MONO % 8.8 % (0.0-5.0); NEUTROPHILS # 3.3 10^3/uL (1.8-7.7); PLATELET COUNT, AUTOMATED 228 10^3/uL (150-450); RED CELL DISTRIBUTION WIDTH 13.4 % (11.5-14.5); WHITE BLOOD COUNT 4.9 10^3/uL (4.0-10.0)
[2017-07-28 14:50] LABS: ANION GAP 4 MEQ/L (8-16); BLOOD UREA NITROGEN 17 MG/DL (7-18); CALCIUM LEVEL 8.3 MG/DL (8.8-10.2); CARBON DIOXIDE LEVEL 32 MEQ/L (21-32); CHLORIDE LEVEL 105 MEQ/L (98-107); CREATININE FOR GFR 0.38 MG/DL (0.55-1.02); GLOMERULAR FILTRATION RATE > 60.0 (>39); GLUCOSE, FASTING 103 MG/DL (83-110); POTASSIUM SERUM 4.1 MEQ/L (3.5-5.1); SODIUM LEVEL 141 MEQ/L (136-145)
[2017-07-28 15:07] LABS: ERYTHROCYTE SEDIMENTATION RATE 65 mm/hr (0-30)
== END ==
LOC: M SFHCPLAZ 14:12
PROVIDERS: ATTEND Internal Medicine Infectious Disease
DX: I87.2 Venous insufficiency (chronic) (peripheral) (principal); A49.8 Other bacterial infections of unspecified site
CPT/HCPCS: 80048; 85025; 85652; 86140; G0463

== ENCOUNTER → 2017-10-22 | Outpatient (CLI) | payer MEDICARE, OTHER ==
[2017-10-22 12:08] LABS: BASO % 0.3 % (0.0-1.0); EOS % 0.4 % (0.0-3.0); HEMATOCRIT 42.2 % (36.0-47.0); IMMATURE GRANULOCYTE # 0.1 10^3/uL (0-0); IMMATURE GRANULOCYTE % 0.5 % (0-0); LYMPH % 10.3 % (24.0-44.0); MEAN CORPUSCULAR HEMOGLOBIN 31.6 pg (27.0-33.0); MEAN CORPUSCULAR HGB CONC 30.8 g/dl (32.0-36.5); MEAN CORPUSCULAR VOLUME 102.7 fl (80.0-96.0); MONO # 0.3 10^3/uL (0.0-0.8); NEUTROPHILS # 7.9 10^3/uL (1.8-7.7); NEUTROPHILS % 85.5 % (36.0-66.0); PLATELET COUNT, AUTOMATED 245 10^3/uL (150-450); RED BLOOD COUNT 4.11 10^6/uL (4.00-5.40); RED CELL DISTRIBUTION WIDTH 15.9 % (11.5-14.5); WHITE BLOOD COUNT 9.2 10^3/uL (4.0-10.0)
[2017-10-22 12:24] LABS: ALBUMIN 3.6 GM/DL (3.2-5.2); ALKALINE PHOSPHATASE 58 U/L (45-117); ALT/SGPT 20 U/L (12-78); ANION GAP 8 MEQ/L (8-16); AST/SGOT 13 U/L (7-37); BILIRUBIN,TOTAL 0.8 MG/DL (0.2-1.0); BLOOD UREA NITROGEN 40 MG/DL (7-18); CALCIUM LEVEL 9.1 MG/DL (8.8-10.2); CARBON DIOXIDE LEVEL 31 MEQ/L (21-32); CHLORIDE LEVEL 102 MEQ/L (98-107); CREATININE FOR GFR 0.73 MG/DL (0.55-1.02); GLOMERULAR FILTRATION RATE > 60.0 (>39); GLUCOSE, FASTING 149 MG/DL (70-100); POTASSIUM SERUM 4.6 MEQ/L (3.5-5.1); SODIUM LEVEL 141 MEQ/L (136-145); TOTAL PROTEIN 7.2 GM/DL (6.4-8.2)
== END ==
LOC: M WUC 09:23
DX: L88 Pyoderma gangrenosum (principal); Z79.899 Other long term (current) drug therapy
CPT/HCPCS: 80053

== ENCOUNTER 2017-12-04 09:17 | Outpatient (CLI) | payer MEDICARE, OTHER ==
[2017-12-04] MEDS: SODIUM CHLORIDE 0.9% INJ 10 ML SYR IV (10:15)
[2017-12-04 10:16] LABS: HEMATOCRIT 37.3 % (36.0-47.0); HEMOGLOBIN 11.7 g/dl (12.0-16.0); MEAN CORPUSCULAR HEMOGLOBIN 31.9 pg (27.0-33.0); MEAN CORPUSCULAR HGB CONC 31.4 g/dl (32.0-36.5); MEAN CORPUSCULAR VOLUME 101.6 fl (80.0-96.0); PLATELET COUNT, AUTOMATED 213 10^3/uL (150-450); RED BLOOD COUNT 3.67 10^6/uL (4.00-5.40); RED CELL DISTRIBUTION WIDTH 14.9 % (11.5-14.5); WHITE BLOOD COUNT 7.8 10^3/uL (4.0-10.0)
[2017-12-04 10:41] LABS: ERYTHROCYTE SEDIMENTATION RATE 54 mm/hr (0-30)
[2017-12-04 10:45] LABS: ALBUMIN 3.2 GM/DL (3.2-5.2); ALBUMIN/GLOBULIN RATIO 0.97 (1.00-1.93); ALKALINE PHOSPHATASE 52 U/L (45-117); ALT/SGPT 20 U/L (12-78); ANION GAP 6 MEQ/L (8-16); AST/SGOT 11 U/L (7-37); BILIRUBIN,TOTAL 0.4 MG/DL (0.2-1.0); BLOOD UREA NITROGEN 30 MG/DL (7-18); C REACTIVE PROTEIN QUANTITATIV 0.68 MG/DL (0.00-0.30); CALCIUM LEVEL 9.6 MG/DL (8.8-10.2); CARBON DIOXIDE LEVEL 29 MEQ/L (21-32); CHLORIDE LEVEL 101 MEQ/L (98-107); CREATININE FOR GFR 0.82 MG/DL (0.55-1.30); GLOMERULAR FILTRATION RATE > 60.0 (>39); GLUCOSE, FASTING 130 MG/DL (70-100); POTASSIUM SERUM 4.9 MEQ/L (3.5-5.1); SODIUM LEVEL 136 MEQ/L (136-145); TOTAL PROTEIN 6.5 GM/DL (6.4-8.2)
[2017-12-04] MEDS ORDERED: SODIUM CHLORIDE 0.9% INJ 10 ML SYR IV (18:00)
== END 2017-12-04 10:25 | disposition home or self-care (01) ==
LOC: M INFU 09:17
DX: A49.8 Other bacterial infections of unspecified site (principal); I10 Essential (primary) hypertension; E07.9 Disorder of thyroid, unspecified; Z79.82 Long term (current) use of aspirin; Z79.891 Long term (current) use of opiate analgesic; Z79.899 Other long term (current) drug therapy; Z88.8 Allergy status to other drugs, medicaments and biological substances
CPT/HCPCS: 36592

== ENCOUNTER 2017-12-12 11:05 | Outpatient (CLI) | payer MEDICARE, OTHER ==
[2017-12-12 11:44] LABS: BASO % 0.5 % (0.0-1.0); EOS % 0.3 % (0.0-3.0); HEMOGLOBIN 12.3 g/dl (12.0-16.0); IMMATURE GRANULOCYTE % 0.5 % (0-3.0); LYMPH # 0.6 10^3/uL (1.5-4.5); LYMPH % 10.4 % (24.0-44.0); MEAN CORPUSCULAR HEMOGLOBIN 32.2 pg (27.0-33.0); MEAN CORPUSCULAR HGB CONC 32.4 g/dl (32.0-36.5); MEAN CORPUSCULAR VOLUME 99.5 fl (80.0-96.0); MONO # 0.4 10^3/uL (0.0-0.8); MONO % 5.8 % (0.0-5.0); NEUTROPHILS # 4.9 10^3/uL (1.8-7.7); NEUTROPHILS % 82.5 % (36.0-66.0); PLATELET COUNT, AUTOMATED 237 10^3/uL (150-450); RED BLOOD COUNT 3.82 10^6/uL (4.00-5.40)
[2017-12-12 12:15] LABS: ESTIMATED AVERAGE GLUCOSE 128 MG/DL (60-110); HEMOGLOBIN A1c 6.1 %
[2017-12-12 12:25] LABS: ANION GAP 11 MEQ/L (8-16); BLOOD UREA NITROGEN 24 MG/DL (7-18); C REACTIVE PROTEIN QUANTITATIV 1.07 MG/DL (0.00-0.30); CALCIUM LEVEL 9.3 MG/DL (8.8-10.2); CARBON DIOXIDE LEVEL 26 MEQ/L (21-32); CHLORIDE LEVEL 99 MEQ/L (98-107); CREATININE FOR GFR 0.77 MG/DL (0.55-1.30); GLOMERULAR FILTRATION RATE > 60.0 (>39); GLUCOSE, FASTING 148 MG/DL (70-100); POTASSIUM SERUM 4.4 MEQ/L (3.5-5.1); SODIUM LEVEL 136 MEQ/L (136-145)
[2017-12-12 12:28] LABS: ERYTHROCYTE SEDIMENTATION RATE 51 mm/hr (0-30)
[2017-12-12 12:30] LABS: TOTAL 25(OH) VITAMIN D 44.4 NG/ML (30.0-100.0)
[2017-12-12 12:38] LABS: ALBUMIN 3.4 GM/DL (3.2-5.2); ALBUMIN/GLOBULIN RATIO 1.03 (1.00-1.93); ALKALINE PHOSPHATASE 53 U/L (45-117); ALT/SGPT 17 U/L (12-78); ANION GAP 10 MEQ/L (8-16); AST/SGOT 11 U/L (7-37); BILIRUBIN,TOTAL 0.5 MG/DL (0.2-1.0); BLOOD UREA NITROGEN 24 MG/DL (7-18); CALCIUM LEVEL 9.2 MG/DL (8.8-10.2); CARBON DIOXIDE LEVEL 28 MEQ/L (21-32); CHLORIDE LEVEL 99 MEQ/L (98-107); CREATININE FOR GFR 0.73 MG/DL (0.55-1.30); GLOMERULAR FILTRATION RATE > 60.0 (>39); GLUCOSE, FASTING 147 MG/DL (70-100); POTASSIUM SERUM 4.4 MEQ/L (3.5-5.1); SODIUM LEVEL 137 MEQ/L (136-145); TOTAL PROTEIN 6.7 GM/DL (6.4-8.2)
[2017-12-12 12:39] LABS: FREE T3 1.9 PG/ML (2.2-4.0); RHEUMATOID FACTOR QUANT < 10.0 IU/ML (0-15.0)
[2017-12-13 14:14] LABS: ANTINUCLEAR ANTIBODIES DIRECT Negative (Negative)
== END 2017-12-12 12:05 | disposition home or self-care (01) ==
LOC: M INFU 11:05
DX: A49.8 Other bacterial infections of unspecified site (principal); I10 Essential (primary) hypertension; J45.909 Unspecified asthma, uncomplicated; L88 Pyoderma gangrenosum; A49.02 Methicillin resistant Staphylococcus aureus infection, unspecified site; M05.79 Rheumatoid arthritis with rheumatoid factor of multiple sites without organ or systems involvement; Z79.891 Long term (current) use of opiate analgesic; Z79.899 Other long term (current) drug therapy; Z91.030 Bee allergy status; Z88.0 Allergy status to penicillin; Z86.14 Personal history of Methicillin resistant Staphylococcus aureus infection
CPT/HCPCS: 36592

== ENCOUNTER 2017-12-17 08:45 | Outpatient (RCR) | payer MEDICARE, OTHER | END 2017-12-27 | LOC: M PT 08:45 | DX: Z51.89 Encounter for other specified aftercare (principal); I89.0 Lymphedema, not elsewhere classified | CPT/HCPCS: 97140 ==

== ENCOUNTER 2017-12-31 10:00 | Outpatient (RCR) | payer MEDICARE, OTHER | END 2018-01-26 | LOC: M PT 10:00 | DX: I89.0 Lymphedema, not elsewhere classified (principal) | CPT/HCPCS: 97140 ==

== ENCOUNTER 2018-01-28 10:03 | Outpatient (RCR) | payer MEDICARE, OTHER | END 2018-02-26 | LOC: M PT 10:03 | DX: Z51.89 Encounter for other specified aftercare (principal); I89.0 Lymphedema, not elsewhere classified; L88 Pyoderma gangrenosum; L97.922 Non-pressure chronic ulcer of unspecified part of left lower leg with fat layer exposed; L97.912 Non-pressure chronic ulcer of unspecified part of right lower leg with fat layer exposed; I87.313 Chronic venous hypertension (idiopathic) with ulcer of bilateral lower extremity; E66.01 Morbid (severe) obesity due to excess calories | CPT/HCPCS: 97140 ==

== ENCOUNTER 2018-06-16 22:18 | Inpatient (IN) | payer MEDICARE, OTHER ==
[2018-06-17 00:23] LABS: BASO % 0.3 % (0.0-1.0); HEMATOCRIT 35.9 % (36.0-47.0); IMMATURE GRANULOCYTE % 0.4 % (0-3.0); LYMPH # 0.3 10^3/uL (1.5-4.5); LYMPH % 3.2 % (24.0-44.0); MEAN CORPUSCULAR HEMOGLOBIN 26.8 pg (27.0-33.0); MEAN CORPUSCULAR HGB CONC 30.6 g/dl (32.0-36.5); MEAN CORPUSCULAR VOLUME 87.3 fl (80.0-96.0); MONO # 0.6 10^3/uL (0.0-0.8); MONO % 5.7 % (0.0-5.0); NEUTROPHILS # 9.2 10^3/uL (1.8-7.7); NEUTROPHILS % 90.4 % (36.0-66.0); PLATELET COUNT, AUTOMATED 285 10^3/uL (150-450); RED BLOOD COUNT 4.11 10^6/uL (4.00-5.40); WHITE BLOOD COUNT 10.2 10^3/uL (4.0-10.0)
[2018-06-17 00:37] LABS: ALBUMIN 3.1 GM/DL (3.2-5.2); ALBUMIN/GLOBULIN RATIO 0.84 (1.00-1.93); ALKALINE PHOSPHATASE 83 U/L (45-117); ALT/SGPT 13 U/L (12-78); ANION GAP 9 MEQ/L (8-16); AST/SGOT 23 U/L (7-37); BILIRUBIN,DIRECT 0.2 MG/DL (0.0-0.2); BILIRUBIN,TOTAL 0.8 MG/DL (0.2-1.0); BLOOD UREA NITROGEN 14 MG/DL (7-18); CALCIUM LEVEL 8.2 MG/DL (8.8-10.2); CARBON DIOXIDE LEVEL 26 MEQ/L (21-32); CHLORIDE LEVEL 101 MEQ/L (98-107); CK-MB VALUE MASS < 1.0 NG/ML (<3.6); CPK CREATINE PHOSPHOKINASE 53 U/L (26-192); CREATININE FOR GFR 0.68 MG/DL (0.55-1.30); GLOMERULAR FILTRATION RATE > 60.0 (>39); GLUCOSE, FASTING 116 MG/DL (70-100); MB/CK RELATIVE INDEX 1.89 (< OR =4); POTASSIUM SERUM 4.3 MEQ/L (3.5-5.1); SODIUM LEVEL 136 MEQ/L (136-145); TOTAL PROTEIN 6.8 GM/DL (6.4-8.2); TROPONIN I < 0.02 NG/ML (< 0.10)
[2018-06-17] MEDS: ACETAMINOPHEN TAB 650MG DOSE (2X325MG) PO (01:00)
[2018-06-17 02:28] LABS: AMORPHOUS SEDIMENT RFX SMALL (NEGATIVE); KETONE, URINE AUTO RFX TRACE mg/dL (NEGATIVE); RBC, URINE AUTO RFX 6 /HPF (0-3); SQUAM EPITHELIAL CELL UR AURFX 0 /HPF (0-6)
[2018-06-17 02:30] LABS: LEUKOCYTE ESTERASE UR AUTO RFX 1+ (NEGATIVE); NITRITE, URINE AUTO RFX POSITIVE (NEGATIVE); WBC, URINE AUTO RFX 47 /HPF (0-3)
[2018-06-17] MEDS: CIPROFLOXACIN 400 MG in APPROPRIATE DILUENT 1 EA IV (02:45)
[2018-06-17] MEDS ORDERED: SODIUM CHLORIDE 0.9% 1000ML IV (03:45)
[2018-06-17] MEDS: SODIUM CHLORIDE 0.9% 1000ML IV ×2 (04:00→05:00)
[2018-06-17] MEDS: LevoFLOXacin IV 750 MG in APPROPRIATE DILUENT 1 EA IV (04:15)
[2018-06-17] MEDS: ACETAMINOPH W/CODEINE #3 TAB UD PO ×4 (05:28→18:26)
[2018-06-17] MEDS: LEVOTHYROXINE 75MCG TABLET (0.075MG) PO (07:48)
[2018-06-17] MEDS: LEVOTHYROXINE 100MCG TABLET (0.1MG) PO (07:48)
[2018-06-17] MEDS: NS 1,000 ML IV ×4 (07:49→18:35)
[2018-06-17 08:54] LABS: LACTIC ACID SEPSIS PROTOCOL 1.3 MMOL/L (0.4-2.0)
[2018-06-17] MEDS ORDERED: INFLUENZA VIRUS VACCINE HIGH DOSE 0.5 ML SYRINGE (90662) IM (10:00)
[2018-06-17] MEDS: FUROSEMIDE 20 MG TAB PO (10:23)
[2018-06-17] MEDS: ASPIRIN 81 MG ENTERIC TAB PO (10:23)
[2018-06-17] MEDS: ENOXAPARIN 40 MG/0.4 ML SYRINGE (J1650) SC (10:23)
[2018-06-17] MEDS: ONDANSETRON 4MG/2ML VIAL (J2405) IV (11:23)
[2018-06-17] MEDS: NYSTATIN 100,000 UNITS/GM TOPICAL PWD 15 GM TOP ×2 (14:53→20:25)
[2018-06-17] MEDS: SANTYL OINT 30GM TOP (14:53)
[2018-06-17] MEDS ORDERED: LIDOCAINE 1% MDV 20ML VIAL As Ordered (18:02)
[2018-06-17] MEDS: LIDOCAINE 1% MDV 20ML VIAL SC (18:28)
[2018-06-17] MEDS: MEROPENEM INJ 1 GM in APPROPRIATE DILUENT 1 EA IV (18:35)
[2018-06-17 19:19] LABS: LACTIC ACID SEPSIS PROTOCOL 0.7 MMOL/L (0.4-2.0)
[2018-06-17] MEDS: VANCOMYCIN HCL 1,000 MG, VIAL MATE ADAPTER 1 EACH in D5W 250 ML IV ×2 (20:25→23:08)
[2018-06-17] MEDS ORDERED: ATENOLOL 50 MG TAB PO (21:00)
[2018-06-17] MEDS: RAMELTEON 8 MG TAB (ROZEREM) PO (23:08)
[2018-06-18] MEDS: ACETAMINOPH W/CODEINE #3 TAB UD PO ×2 (00:35→13:28)
[2018-06-18] MEDS: ACETAMINOPHEN TAB 650MG DOSE (2X325MG) PO (00:35)
[2018-06-18] MEDS: MEROPENEM INJ 1 GM in APPROPRIATE DILUENT 1 EA IV ×3 (02:13→18:45)
[2018-06-18] MEDS: NOREPINEPHRINE BITARTRATE 8 MG in D5W 492 ML IV (02:19)
[2018-06-18] MEDS ORDERED: LevoFLOXacin IV 750 MG in APPROPRIATE DILUENT 1 EA IV (06:00)
[2018-06-18] MEDS: NS 1,000 ML IV ×2 (06:02→15:21)
[2018-06-18] MEDS: LEVOTHYROXINE 100MCG TABLET (0.1MG) PO (06:03)
[2018-06-18] MEDS: LEVOTHYROXINE 75MCG TABLET (0.075MG) PO (06:03)
[2018-06-18 06:25] LABS: HEMATOCRIT 31.4 % (36.0-47.0); HEMOGLOBIN 9.4 g/dl (12.0-15.5); MEAN CORPUSCULAR HEMOGLOBIN 26.6 pg (27.0-33.0); MEAN CORPUSCULAR HGB CONC 29.9 g/dl (32.0-36.5); PLATELET COUNT, AUTOMATED 216 10^3/uL (150-450); RED BLOOD COUNT 3.53 10^6/uL (4.00-5.40); RED CELL DISTRIBUTION WIDTH 15.2 % (11.5-14.5); WHITE BLOOD COUNT 9.6 10^3/uL (4.0-10.0)
[2018-06-18 06:49] LABS: ANION GAP 9 MEQ/L (8-16); BLOOD UREA NITROGEN 14 MG/DL (7-18); CARBON DIOXIDE LEVEL 27 MEQ/L (21-32); CHLORIDE LEVEL 104 MEQ/L (98-107); CREATININE FOR GFR 0.63 MG/DL (0.55-1.30); GLOMERULAR FILTRATION RATE > 60.0 (>39); GLUCOSE, FASTING 116 MG/DL (70-100); MAGNESIUM LEVEL 1.9 MG/DL (1.8-2.4); POTASSIUM SERUM 4.2 MEQ/L (3.5-5.1); SODIUM LEVEL 140 MEQ/L (136-145)
[2018-06-18] MEDS: ASPIRIN 81 MG ENTERIC TAB PO (08:24)
[2018-06-18] MEDS: VANCOMYCIN HCL 1,000 MG, VIAL MATE ADAPTER 1 EACH in D5W 250 ML IV (08:26)
[2018-06-18] MEDS: ENOXAPARIN 40 MG/0.4 ML SYRINGE (J1650) SC (08:27)
[2018-06-18] MEDS: NYSTATIN 100,000 UNITS/GM TOPICAL PWD 15 GM TOP ×2 (08:28→22:03)
[2018-06-18] MEDS: NS 250 ML IV (14:50)
[2018-06-18] MEDS ORDERED: SODIUM CHLORIDE 0.9% INJ 10 ML SYR IV (21:00)
[2018-06-18] MEDS: SODIUM CHLORIDE 0.9% INJ 10 ML SYR IV (22:00)
[2018-06-18] MEDS: RAMELTEON 8 MG TAB (ROZEREM) PO (22:02)
[2018-06-18] MEDS: traMADol 50 MG TAB PO (22:03)
[2018-06-19] MEDS: ACETAMINOPHEN TAB 650MG DOSE (2X325MG) PO (00:06)
[2018-06-19] MEDS: NS 1,000 ML IV ×2 (02:13→16:04)
[2018-06-19] MEDS: MEROPENEM INJ 1 GM in APPROPRIATE DILUENT 1 EA IV ×3 (02:13→18:45)
[2018-06-19] MEDS: ONDANSETRON 4MG/2ML VIAL (J2405) IV (02:25)
[2018-06-19] MEDS: LEVOTHYROXINE 75MCG TABLET (0.075MG) PO (05:41)
[2018-06-19] MEDS: LEVOTHYROXINE 100MCG TABLET (0.1MG) PO (05:41)
[2018-06-19] MEDS: SODIUM CHLORIDE 0.9% INJ 10 ML SYR IV ×3 (05:42→22:00)
[2018-06-19 05:57] LABS: HEMATOCRIT 30.9 % (36.0-47.0); HEMOGLOBIN 8.9 g/dl (12.0-15.5); MEAN CORPUSCULAR HEMOGLOBIN 26.3 pg (27.0-33.0); MEAN CORPUSCULAR HGB CONC 28.8 g/dl (32.0-36.5); MEAN CORPUSCULAR VOLUME 91.2 fl (80.0-96.0); PLATELET COUNT, AUTOMATED 187 10^3/uL (150-450); RED BLOOD COUNT 3.39 10^6/uL (4.00-5.40); WHITE BLOOD COUNT 5.3 10^3/uL (4.0-10.0)
[2018-06-19 06:16] LABS: ANION GAP 5 MEQ/L (8-16); BLOOD UREA NITROGEN 13 MG/DL (7-18); CALCIUM LEVEL 7.6 MG/DL (8.8-10.2); CARBON DIOXIDE LEVEL 30 MEQ/L (21-32); CHLORIDE LEVEL 104 MEQ/L (98-107); GLOMERULAR FILTRATION RATE > 60.0 (>39); GLUCOSE, FASTING 125 MG/DL (70-100); MAGNESIUM LEVEL 1.9 MG/DL (1.8-2.4); POTASSIUM SERUM 3.8 MEQ/L (3.5-5.1); SODIUM LEVEL 139 MEQ/L (136-145)
[2018-06-19 06:29] LABS: VANCOMYCIN LEVEL TROUGH 3.4 UG/ML (10.0-20.0)
[2018-06-19] MEDS: ASPIRIN 81 MG ENTERIC TAB PO (08:26)
[2018-06-19] MEDS: NYSTATIN 100,000 UNITS/GM TOPICAL PWD 15 GM TOP ×2 (08:28→22:04)
[2018-06-19] MEDS: ENOXAPARIN 40 MG/0.4 ML SYRINGE (J1650) SC (08:29)
[2018-06-19] MEDS: VANCOMYCIN HCL 1,000 MG, VIAL MATE ADAPTER 1 EACH in D5W 250 ML IV ×2 (08:30→22:03)
[2018-06-19] MEDS: SANTYL OINT 30GM TOP (08:30)
[2018-06-19] MEDS: traMADol 50 MG TAB PO (14:42)
[2018-06-19] MEDS: VANCOMYCIN HCL 500 MG in D5W MINI-BAG PLUS 100 ML IV (14:43)
[2018-06-19] MEDS ORDERED: INFLUENZA VIRUS VACCINE HIGH DOSE 0.5 ML SYRINGE (90662) IM (15:30)
[2018-06-19] MEDS: RAMELTEON 8 MG TAB (ROZEREM) PO (21:00)
[2018-06-20] MEDS: MEROPENEM INJ 1 GM in APPROPRIATE DILUENT 1 EA IV (02:00)
[2018-06-20] MEDS: traMADol 50 MG TAB PO (02:54)
[2018-06-20] MEDS: SODIUM CHLORIDE 0.9% INJ 10 ML SYR IV ×3 (06:00→22:01)
[2018-06-20 06:14] LABS: HEMATOCRIT 31.6 % (36.0-47.0); HEMOGLOBIN 9.3 g/dl (12.0-15.5); MEAN CORPUSCULAR HEMOGLOBIN 26.5 pg (27.0-33.0); MEAN CORPUSCULAR HGB CONC 29.4 g/dl (32.0-36.5); PLATELET COUNT, AUTOMATED 212 10^3/uL (150-450); RED BLOOD COUNT 3.51 10^6/uL (4.00-5.40); RED CELL DISTRIBUTION WIDTH 14.8 % (11.5-14.5); WHITE BLOOD COUNT 4.5 10^3/uL (4.0-10.0)
[2018-06-20] MEDS: LEVOTHYROXINE 75MCG TABLET (0.075MG) PO (06:22)
[2018-06-20] MEDS: LEVOTHYROXINE 100MCG TABLET (0.1MG) PO (06:22)
[2018-06-20 06:32] LABS: ANION GAP 7 MEQ/L (8-16); BLOOD UREA NITROGEN 12 MG/DL (7-18); CALCIUM LEVEL 8.1 MG/DL (8.8-10.2); CARBON DIOXIDE LEVEL 29 MEQ/L (21-32); CHLORIDE LEVEL 104 MEQ/L (98-107); CREATININE FOR GFR 0.38 MG/DL (0.55-1.30); GLOMERULAR FILTRATION RATE > 60.0 (>39); GLUCOSE, FASTING 99 MG/DL (70-100); MAGNESIUM LEVEL 1.9 MG/DL (1.8-2.4); POTASSIUM SERUM 4.2 MEQ/L (3.5-5.1); SODIUM LEVEL 140 MEQ/L (136-145)
[2018-06-20] MEDS: CEFDINIR 300 MG CAP (OMNICEF) PO ×2 (10:14→21:54)
[2018-06-20] MEDS: ENOXAPARIN 40 MG/0.4 ML SYRINGE (J1650) SC (10:15)
[2018-06-20] MEDS: INFLUENZA VIRUS VACCINE HIGH DOSE 0.5 ML SYRINGE (90662) IM (10:17)
[2018-06-20] MEDS: NYSTATIN 100,000 UNITS/GM TOPICAL PWD 15 GM TOP ×2 (10:17→21:55)
[2018-06-20] MEDS: ASPIRIN 81 MG ENTERIC TAB PO (10:17)
[2018-06-20] MEDS: ONDANSETRON 4MG/2ML VIAL (J2405) IV (20:33)
[2018-06-20] MEDS: LACTOBACILLUS ACIDOPHILUS CAP (BACID) PO (21:54)
[2018-06-20] MEDS: RAMELTEON 8 MG TAB (ROZEREM) PO (21:55)
[2018-06-20] MEDS: CALCIUM CARBONATE 500 MG CHEW U/D PO (21:55)
[2018-06-20] MEDS: ACETAMINOPH W/CODEINE #3 TAB UD PO (22:00)
[2018-06-21] MEDS: ACETAMINOPH W/CODEINE #3 TAB UD PO ×3 (04:25→22:12)
[2018-06-21] MEDS: SODIUM CHLORIDE 0.9% INJ 10 ML SYR IV ×3 (05:23→20:37)
[2018-06-21] MEDS: LEVOTHYROXINE 75MCG TABLET (0.075MG) PO (05:23)
[2018-06-21] MEDS: LEVOTHYROXINE 100MCG TABLET (0.1MG) PO (05:23)
[2018-06-21 05:29] LABS: HEMATOCRIT 31.9 % (36.0-47.0); HEMOGLOBIN 9.4 g/dl (12.0-15.5); MEAN CORPUSCULAR HEMOGLOBIN 26.1 pg (27.0-33.0); MEAN CORPUSCULAR HGB CONC 29.5 g/dl (32.0-36.5); MEAN CORPUSCULAR VOLUME 88.6 fl (80.0-96.0); PLATELET COUNT, AUTOMATED 246 10^3/uL (150-450); RED CELL DISTRIBUTION WIDTH 14.7 % (11.5-14.5); WHITE BLOOD COUNT 4.4 10^3/uL (4.0-10.0)
[2018-06-21 05:53] LABS: ANION GAP 4 MEQ/L (8-16); BLOOD UREA NITROGEN 14 MG/DL (7-18); CALCIUM LEVEL 8.3 MG/DL (8.8-10.2); CARBON DIOXIDE LEVEL 33 MEQ/L (21-32); CHLORIDE LEVEL 104 MEQ/L (98-107); CREATININE FOR GFR 0.42 MG/DL (0.55-1.30); GLOMERULAR FILTRATION RATE > 60.0 (>39); GLUCOSE, FASTING 111 MG/DL (70-100); MAGNESIUM LEVEL 1.9 MG/DL (1.8-2.4); POTASSIUM SERUM 4.2 MEQ/L (3.5-5.1); SODIUM LEVEL 141 MEQ/L (136-145)
[2018-06-21] MEDS: CEFDINIR 300 MG CAP (OMNICEF) PO ×2 (08:34→20:35)
[2018-06-21] MEDS: ENOXAPARIN 40 MG/0.4 ML SYRINGE (J1650) SC (08:34)
[2018-06-21] MEDS: LACTOBACILLUS ACIDOPHILUS CAP (BACID) PO ×2 (08:34→20:34)
[2018-06-21] MEDS: ASPIRIN 81 MG ENTERIC TAB PO (08:34)
[2018-06-21] MEDS: CALCIUM CARBONATE 500 MG CHEW U/D PO (08:34)
[2018-06-21] MEDS: NYSTATIN 100,000 UNITS/GM TOPICAL PWD 15 GM TOP ×2 (08:35→20:36)
[2018-06-21] MEDS: SANTYL OINT 30GM TOP (08:35)
[2018-06-21] MEDS: RAMELTEON 8 MG TAB (ROZEREM) PO (20:35)
[2018-06-22 05:21] LABS: HEMATOCRIT 32.9 % (36.0-47.0); HEMOGLOBIN 9.9 g/dl (12.0-15.5); MEAN CORPUSCULAR HEMOGLOBIN 26.5 pg (27.0-33.0); MEAN CORPUSCULAR HGB CONC 30.1 g/dl (32.0-36.5); PLATELET COUNT, AUTOMATED 272 10^3/uL (150-450); RED BLOOD COUNT 3.74 10^6/uL (4.00-5.40); RED CELL DISTRIBUTION WIDTH 14.7 % (11.5-14.5); WHITE BLOOD COUNT 4.9 10^3/uL (4.0-10.0)
[2018-06-22] MEDS: SODIUM CHLORIDE 0.9% INJ 10 ML SYR IV ×3 (05:24→22:00)
[2018-06-22] MEDS: ACETAMINOPH W/CODEINE #3 TAB UD PO ×3 (05:24→23:03)
[2018-06-22] MEDS: LEVOTHYROXINE 100MCG TABLET (0.1MG) PO (05:34)
[2018-06-22] MEDS: LEVOTHYROXINE 75MCG TABLET (0.075MG) PO (05:34)
[2018-06-22 05:42] LABS: ANION GAP 5 MEQ/L (8-16); BLOOD UREA NITROGEN 12 MG/DL (7-18); CALCIUM LEVEL 8.4 MG/DL (8.8-10.2); CARBON DIOXIDE LEVEL 35 MEQ/L (21-32); CHLORIDE LEVEL 102 MEQ/L (98-107); CREATININE FOR GFR 0.38 MG/DL (0.55-1.30); GLOMERULAR FILTRATION RATE > 60.0 (>39); GLUCOSE, FASTING 98 MG/DL (70-100); MAGNESIUM LEVEL 1.7 MG/DL (1.8-2.4); SODIUM LEVEL 142 MEQ/L (136-145)
[2018-06-22] MEDS: MAG SULF 1GM/100ML (MAG RUN) 1 GM in APPROPRIATE DILUENT 1 EA IV ×2 (07:11→08:00)
[2018-06-22] MEDS: NYSTATIN 100,000 UNITS/GM TOPICAL PWD 15 GM TOP ×2 (08:00→20:03)
[2018-06-22] MEDS: ENOXAPARIN 40 MG/0.4 ML SYRINGE (J1650) SC (08:00)
[2018-06-22] MEDS: ASPIRIN 81 MG ENTERIC TAB PO (08:00)
[2018-06-22] MEDS: LACTOBACILLUS ACIDOPHILUS CAP (BACID) PO ×2 (08:00→20:02)
[2018-06-22] MEDS: CEFDINIR 300 MG CAP (OMNICEF) PO ×2 (08:00→20:02)
[2018-06-22] MEDS: RAMELTEON 8 MG TAB (ROZEREM) PO (20:02)
[2018-06-23] MEDS: SODIUM CHLORIDE 0.9% INJ 10 ML SYR IV ×2 (06:00→14:05)
[2018-06-23] MEDS: LEVOTHYROXINE 100MCG TABLET (0.1MG) PO (06:23)
[2018-06-23] MEDS: LEVOTHYROXINE 75MCG TABLET (0.075MG) PO (06:23)
[2018-06-23 06:36] LABS: HEMATOCRIT 35.2 % (36.0-47.0); HEMOGLOBIN 10.4 g/dl (12.0-15.5); MEAN CORPUSCULAR HGB CONC 29.5 g/dl (32.0-36.5); PLATELET COUNT, AUTOMATED 322 10^3/uL (150-450); RED CELL DISTRIBUTION WIDTH 14.7 % (11.5-14.5); WHITE BLOOD COUNT 5.1 10^3/uL (4.0-10.0)
[2018-06-23 07:00] LABS: ANION GAP 6 MEQ/L (8-16); BLOOD UREA NITROGEN 10 MG/DL (7-18); CALCIUM LEVEL 8.3 MG/DL (8.8-10.2); CARBON DIOXIDE LEVEL 33 MEQ/L (21-32); CHLORIDE LEVEL 101 MEQ/L (98-107); CREATININE FOR GFR 0.44 MG/DL (0.55-1.30); GLOMERULAR FILTRATION RATE > 60.0 (>39); GLUCOSE, FASTING 100 MG/DL (70-100); SODIUM LEVEL 140 MEQ/L (136-145)
[2018-06-23] MEDS: CEFDINIR 300 MG CAP (OMNICEF) PO ×2 (08:42→20:37)
[2018-06-23] MEDS: NYSTATIN 100,000 UNITS/GM TOPICAL PWD 15 GM TOP ×2 (08:42→20:39)
[2018-06-23] MEDS: LACTOBACILLUS ACIDOPHILUS CAP (BACID) PO ×2 (08:42→20:37)
[2018-06-23] MEDS: ASPIRIN 81 MG ENTERIC TAB PO (08:42)
[2018-06-23] MEDS: ENOXAPARIN 40 MG/0.4 ML SYRINGE (J1650) SC (08:42)
[2018-06-23] MEDS: ACETAMINOPH W/CODEINE #3 TAB UD PO ×2 (10:24→20:38)
[2018-06-23] MEDS: SANTYL OINT 30GM TOP (14:30)
[2018-06-23] MEDS: FUROSEMIDE 40 MG TAB PO (16:13)
[2018-06-23] MEDS: RAMELTEON 8 MG TAB (ROZEREM) PO (20:37)
[2018-06-23] MEDS: ATENOLOL 50 MG TAB PO (20:38)
[2018-06-24] MEDS: ACETAMINOPH W/CODEINE #3 TAB UD PO ×3 (04:22→23:16)
[2018-06-24] MEDS: LEVOTHYROXINE 75MCG TABLET (0.075MG) PO (05:30)
[2018-06-24] MEDS: LEVOTHYROXINE 100MCG TABLET (0.1MG) PO (05:30)
[2018-06-24 06:29] LABS: HEMATOCRIT 35.4 % (36.0-47.0); HEMOGLOBIN 10.6 g/dl (12.0-15.5); MEAN CORPUSCULAR HEMOGLOBIN 26.2 pg (27.0-33.0); MEAN CORPUSCULAR HGB CONC 29.9 g/dl (32.0-36.5); MEAN CORPUSCULAR VOLUME 87.6 fl (80.0-96.0); PLATELET COUNT, AUTOMATED 340 10^3/uL (150-450); RED BLOOD COUNT 4.04 10^6/uL (4.00-5.40); WHITE BLOOD COUNT 5.2 10^3/uL (4.0-10.0)
[2018-06-24 06:44] LABS: ANION GAP 9 MEQ/L (8-16); BLOOD UREA NITROGEN 12 MG/DL (7-18); CALCIUM LEVEL 8.7 MG/DL (8.8-10.2); CARBON DIOXIDE LEVEL 32 MEQ/L (21-32); CHLORIDE LEVEL 100 MEQ/L (98-107); CREATININE FOR GFR 0.45 MG/DL (0.55-1.30); GLOMERULAR FILTRATION RATE > 60.0 (>39); GLUCOSE, FASTING 118 MG/DL (70-100); MAGNESIUM LEVEL 2.1 MG/DL (1.8-2.4); POTASSIUM SERUM 3.8 MEQ/L (3.5-5.1); SODIUM LEVEL 141 MEQ/L (136-145)
[2018-06-24] MEDS: LACTOBACILLUS ACIDOPHILUS CAP (BACID) PO ×2 (11:06→21:49)
[2018-06-24] MEDS: ASPIRIN 81 MG ENTERIC TAB PO (11:06)
[2018-06-24] MEDS: ENOXAPARIN 40 MG/0.4 ML SYRINGE (J1650) SC (11:06)
[2018-06-24] MEDS: CEFDINIR 300 MG CAP (OMNICEF) PO ×2 (11:06→21:49)
[2018-06-24] MEDS: FUROSEMIDE 40 MG TAB PO (11:06)
[2018-06-24] MEDS: NYSTATIN 100,000 UNITS/GM TOPICAL PWD 15 GM TOP ×2 (11:07→21:54)
[2018-06-24] MEDS: RAMELTEON 8 MG TAB (ROZEREM) PO (21:48)
[2018-06-24] MEDS: ATENOLOL 50 MG TAB PO (21:53)
[2018-06-24] MEDS: traZODone 25MG PER 1/2 TABLET PO (23:16)
[2018-06-25] MEDS: LEVOTHYROXINE 75MCG TABLET (0.075MG) PO (05:39)
[2018-06-25] MEDS: LEVOTHYROXINE 100MCG TABLET (0.1MG) PO (05:39)
[2018-06-25 07:55] LABS: BASO % 0.8 % (0.0-1.0); EOS # 0.2 10^3/uL (0.0-0.50); EOS % 4.2 % (0.0-3.0); HEMOGLOBIN 10.9 g/dl (12.0-15.5); IMMATURE GRANULOCYTE % 0.4 % (0-3.0); LYMPH # 1.3 10^3/uL (1.5-4.5); LYMPH % 23.8 % (24.0-44.0); MEAN CORPUSCULAR HEMOGLOBIN 26.3 pg (27.0-33.0); MEAN CORPUSCULAR HGB CONC 30.3 g/dl (32.0-36.5); MEAN CORPUSCULAR VOLUME 86.7 fl (80.0-96.0); MONO # 0.7 10^3/uL (0.0-0.8); MONO % 12.7 % (0.0-5.0); NEUTROPHILS # 3.1 10^3/uL (1.8-7.7); NEUTROPHILS % 58.1 % (36.0-66.0); PLATELET COUNT, AUTOMATED 383 10^3/uL (150-450); RED BLOOD COUNT 4.15 10^6/uL (4.00-5.40); RED CELL DISTRIBUTION WIDTH 15.3 % (11.5-14.5); WHITE BLOOD COUNT 5.3 10^3/uL (4.0-10.0)
[2018-06-25 08:22] LABS: ANION GAP 8 MEQ/L (8-16); BLOOD UREA NITROGEN 11 MG/DL (7-18); CALCIUM LEVEL 8.4 MG/DL (8.8-10.2); CARBON DIOXIDE LEVEL 33 MEQ/L (21-32); CHLORIDE LEVEL 102 MEQ/L (98-107); CREATININE FOR GFR 0.46 MG/DL (0.55-1.30); GLOMERULAR FILTRATION RATE > 60.0 (>39); GLUCOSE, FASTING 102 MG/DL (70-100); MAGNESIUM LEVEL 2.1 MG/DL (1.8-2.4); POTASSIUM SERUM 4.3 MEQ/L (3.5-5.1); SODIUM LEVEL 143 MEQ/L (136-145)
[2018-06-25] MEDS: LACTOBACILLUS ACIDOPHILUS CAP (BACID) PO ×2 (08:45→19:56)
[2018-06-25] MEDS: ASPIRIN 81 MG ENTERIC TAB PO (08:45)
[2018-06-25] MEDS: CEFDINIR 300 MG CAP (OMNICEF) PO ×2 (08:45→19:56)
[2018-06-25] MEDS: FUROSEMIDE 40 MG TAB PO (08:45)
[2018-06-25] MEDS: ACETAMINOPH W/CODEINE #3 TAB UD PO ×2 (08:45→23:54)
[2018-06-25] MEDS: ENOXAPARIN 40 MG/0.4 ML SYRINGE (J1650) SC (08:45)
[2018-06-25] MEDS: SANTYL OINT 30GM TOP (08:47)
[2018-06-25] MEDS: NYSTATIN 100,000 UNITS/GM TOPICAL PWD 15 GM TOP ×2 (08:47→19:57)
[2018-06-25] MEDS: ACETAMINOPHEN TAB 650MG DOSE (2X325MG) PO (19:55)
[2018-06-25] MEDS: RAMELTEON 8 MG TAB (ROZEREM) PO (19:56)
[2018-06-25] MEDS: ATENOLOL 50 MG TAB PO (19:56)
[2018-06-26] MEDS: LEVOTHYROXINE 75MCG TABLET (0.075MG) PO (06:42)
[2018-06-26] MEDS: LEVOTHYROXINE 100MCG TABLET (0.1MG) PO (06:42)
[2018-06-26 06:43] LABS: BASO % 0.6 % (0.0-1.0); EOS # 0.2 10^3/uL (0.0-0.50); HEMATOCRIT 36.4 % (36.0-47.0); HEMOGLOBIN 10.8 g/dl (12.0-15.5); IMMATURE GRANULOCYTE % 0.8 % (0-3.0); LYMPH # 1.3 10^3/uL (1.5-4.5); MEAN CORPUSCULAR HGB CONC 29.7 g/dl (32.0-36.5); MEAN CORPUSCULAR VOLUME 87.7 fl (80.0-96.0); MONO # 0.6 10^3/uL (0.0-0.8); MONO % 11.5 % (0.0-5.0); NEUTROPHILS # 2.8 10^3/uL (1.8-7.7); NEUTROPHILS % 57.1 % (36.0-66.0); PLATELET COUNT, AUTOMATED 382 10^3/uL (150-450); RED BLOOD COUNT 4.15 10^6/uL (4.00-5.40); RED CELL DISTRIBUTION WIDTH 15.4 % (11.5-14.5)
[2018-06-26 07:12] LABS: ALBUMIN 2.6 GM/DL (3.2-5.2); ALKALINE PHOSPHATASE 112 U/L (45-117); ALT/SGPT 31 U/L (12-78); ANION GAP 6 MEQ/L (8-16); AST/SGOT 26 U/L (7-37); BILIRUBIN,TOTAL 0.3 MG/DL (0.2-1.0); BLOOD UREA NITROGEN 13 MG/DL (7-18); CALCIUM LEVEL 8.8 MG/DL (8.8-10.2); CARBON DIOXIDE LEVEL 30 MEQ/L (21-32); CHLORIDE LEVEL 103 MEQ/L (98-107); CREATININE FOR GFR 0.52 MG/DL (0.55-1.30); GLOMERULAR FILTRATION RATE > 60.0 (>39); GLUCOSE, FASTING 98 MG/DL (70-100); MAGNESIUM LEVEL 2.2 MG/DL (1.8-2.4); POTASSIUM SERUM 4.1 MEQ/L (3.5-5.1); SODIUM LEVEL 139 MEQ/L (136-145); TOTAL PROTEIN 6.3 GM/DL (6.4-8.2)
[2018-06-26] MEDS: ENOXAPARIN 40 MG/0.4 ML SYRINGE (J1650) SC (09:02)
[2018-06-26] MEDS: FUROSEMIDE 40 MG TAB PO (09:02)
[2018-06-26] MEDS: LACTOBACILLUS ACIDOPHILUS CAP (BACID) PO ×2 (09:02→20:28)
[2018-06-26] MEDS: ASPIRIN 81 MG ENTERIC TAB PO (09:02)
[2018-06-26] MEDS: CEFDINIR 300 MG CAP (OMNICEF) PO ×2 (09:02→20:28)
[2018-06-26] MEDS: ACETAMINOPH W/CODEINE #3 TAB UD PO ×2 (09:03→22:08)
[2018-06-26] MEDS: NYSTATIN 100,000 UNITS/GM TOPICAL PWD 15 GM TOP ×2 (09:03→21:00)
[2018-06-26] MEDS: ATENOLOL 50 MG TAB PO (20:28)
[2018-06-26] MEDS: ACETAMINOPHEN TAB 650MG DOSE (2X325MG) PO (20:29)
[2018-06-26] MEDS: RAMELTEON 8 MG TAB (ROZEREM) PO (22:08)
[2018-06-27] MEDS: traZODone 25MG PER 1/2 TABLET PO (03:26)
[2018-06-27 06:05] LABS: BASO % 0.6 % (0.0-1.0); EOS # 0.3 10^3/uL (0.0-0.50); HEMATOCRIT 36.3 % (36.0-47.0); HEMOGLOBIN 10.6 g/dl (12.0-15.5); IMMATURE GRANULOCYTE % 0.5 % (0-3.0); LYMPH # 1.2 10^3/uL (1.5-4.5); LYMPH % 18.2 % (24.0-44.0); MEAN CORPUSCULAR HEMOGLOBIN 26.1 pg (27.0-33.0); MEAN CORPUSCULAR HGB CONC 29.2 g/dl (32.0-36.5); MEAN CORPUSCULAR VOLUME 89.4 fl (80.0-96.0); MONO # 0.7 10^3/uL (0.0-0.8); MONO % 11.1 % (0.0-5.0); NEUTROPHILS # 4.3 10^3/uL (1.8-7.7); NEUTROPHILS % 65.6 % (36.0-66.0); PLATELET COUNT, AUTOMATED 360 10^3/uL (150-450); RED BLOOD COUNT 4.06 10^6/uL (4.00-5.40); RED CELL DISTRIBUTION WIDTH 15.5 % (11.5-14.5); WHITE BLOOD COUNT 6.5 10^3/uL (4.0-10.0)
[2018-06-27] MEDS: LEVOTHYROXINE 75MCG TABLET (0.075MG) PO (06:23)
[2018-06-27] MEDS: LEVOTHYROXINE 100MCG TABLET (0.1MG) PO (06:23)
[2018-06-27 06:34] LABS: ALBUMIN 2.6 GM/DL (3.2-5.2); ALKALINE PHOSPHATASE 107 U/L (45-117); ALT/SGPT 28 U/L (12-78); ANION GAP 7 MEQ/L (8-16); AST/SGOT 19 U/L (7-37); BILIRUBIN,TOTAL 0.3 MG/DL (0.2-1.0); BLOOD UREA NITROGEN 15 MG/DL (7-18); CALCIUM LEVEL 8.7 MG/DL (8.8-10.2); CARBON DIOXIDE LEVEL 30 MEQ/L (21-32); CHLORIDE LEVEL 103 MEQ/L (98-107); CREATININE FOR GFR 0.51 MG/DL (0.55-1.30); GLOMERULAR FILTRATION RATE > 60.0 (>39); GLUCOSE, FASTING 109 MG/DL (70-100); MAGNESIUM LEVEL 2.1 MG/DL (1.8-2.4); POTASSIUM SERUM 3.8 MEQ/L (3.5-5.1); SODIUM LEVEL 140 MEQ/L (136-145); TOTAL PROTEIN 6.3 GM/DL (6.4-8.2)
[2018-06-27] MEDS: ENOXAPARIN 40 MG/0.4 ML SYRINGE (J1650) SC (10:04)
[2018-06-27] MEDS: LACTOBACILLUS ACIDOPHILUS CAP (BACID) PO ×2 (10:05→22:00)
[2018-06-27] MEDS: CEFDINIR 300 MG CAP (OMNICEF) PO ×2 (10:05→22:00)
[2018-06-27] MEDS: FUROSEMIDE 40 MG TAB PO (10:05)
[2018-06-27] MEDS: NYSTATIN 100,000 UNITS/GM TOPICAL PWD 15 GM TOP ×2 (10:06→22:00)
[2018-06-27] MEDS: ACETAMINOPH W/CODEINE #3 TAB UD PO ×2 (10:06→22:01)
[2018-06-27] MEDS: SANTYL OINT 30GM TOP (10:07)
[2018-06-27] MEDS: ASPIRIN 81 MG ENTERIC TAB PO (10:10)
[2018-06-27] MEDS ORDERED: ONDANSETRON 4 MG ORAL DISINTEGRATING TAB (Q0162 PER 1MG) As Ordered (13:48)
[2018-06-27] MEDS: ONDANSETRON 4 MG ORAL DISINTEGRATING TAB (Q0162 PER 1MG) PO (14:00)
[2018-06-27] MEDS: ACETAMINOPHEN TAB 650MG DOSE (2X325MG) PO (17:22)
[2018-06-27] MEDS: ATENOLOL 50 MG TAB PO (22:02)
[2018-06-27] MEDS: RAMELTEON 8 MG TAB (ROZEREM) PO (22:02)
[2018-06-28] MEDS: LEVOTHYROXINE 75MCG TABLET (0.075MG) PO (06:17)
[2018-06-28] MEDS: LEVOTHYROXINE 100MCG TABLET (0.1MG) PO (06:17)
[2018-06-28 06:42] LABS: BASO % 0.8 % (0.0-1.0); EOS # 0.2 10^3/uL (0.0-0.50); EOS % 3.5 % (0.0-3.0); HEMATOCRIT 34.7 % (36.0-47.0); HEMOGLOBIN 10.2 g/dl (12.0-15.5); IMMATURE GRANULOCYTE % 0.4 % (0-3.0); LYMPH # 1.3 10^3/uL (1.5-4.5); LYMPH % 27.3 % (24.0-44.0); MEAN CORPUSCULAR HEMOGLOBIN 26.4 pg (27.0-33.0); MEAN CORPUSCULAR HGB CONC 29.4 g/dl (32.0-36.5); MEAN CORPUSCULAR VOLUME 89.9 fl (80.0-96.0); MONO # 0.6 10^3/uL (0.0-0.8); MONO % 11.7 % (0.0-5.0); NEUTROPHILS # 2.7 10^3/uL (1.8-7.7); NEUTROPHILS % 56.3 % (36.0-66.0); PLATELET COUNT, AUTOMATED 365 10^3/uL (150-450); RED BLOOD COUNT 3.86 10^6/uL (4.00-5.40); RED CELL DISTRIBUTION WIDTH 15.7 % (11.5-14.5); WHITE BLOOD COUNT 4.9 10^3/uL (4.0-10.0)
[2018-06-28 07:02] LABS: ALBUMIN 2.5 GM/DL (3.2-5.2); ALBUMIN/GLOBULIN RATIO 0.63 (1.00-1.93); ALKALINE PHOSPHATASE 96 U/L (45-117); ALT/SGPT 22 U/L (12-78); ANION GAP 4 MEQ/L (8-16); AST/SGOT 20 U/L (7-37); BILIRUBIN,TOTAL 0.3 MG/DL (0.2-1.0); BLOOD UREA NITROGEN 13 MG/DL (7-18); CALCIUM LEVEL 8.3 MG/DL (8.8-10.2); CARBON DIOXIDE LEVEL 33 MEQ/L (21-32); CHLORIDE LEVEL 103 MEQ/L (98-107); CREATININE FOR GFR 0.64 MG/DL (0.55-1.30); GLOMERULAR FILTRATION RATE > 60.0 (>39); GLUCOSE, FASTING 107 MG/DL (70-100); MAGNESIUM LEVEL 2.1 MG/DL (1.8-2.4); POTASSIUM SERUM 4.9 MEQ/L (3.5-5.1); SODIUM LEVEL 140 MEQ/L (136-145); TOTAL PROTEIN 6.5 GM/DL (6.4-8.2)
[2018-06-28] MEDS: LACTOBACILLUS RHAMNOSUS POWDER PACKET(CULTURELLE) PO (09:00)
[2018-06-28] MEDS: CEFDINIR 300 MG CAP (OMNICEF) PO ×2 (09:06→21:42)
[2018-06-28] MEDS: FUROSEMIDE 20 MG TAB PO (09:06)
[2018-06-28] MEDS: LACTOBACILLUS ACIDOPHILUS CAP (BACID) PO ×2 (09:06→21:42)
[2018-06-28] MEDS: ASPIRIN 81 MG ENTERIC TAB PO (09:06)
[2018-06-28] MEDS: ENOXAPARIN 40 MG/0.4 ML SYRINGE (J1650) SC (09:07)
[2018-06-28] MEDS: NYSTATIN 100,000 UNITS/GM TOPICAL PWD 15 GM TOP ×2 (09:09→21:42)
[2018-06-28] MEDS: ACETAMINOPH W/CODEINE #3 TAB UD PO ×2 (14:17→23:42)
[2018-06-28] MEDS: RAMELTEON 8 MG TAB (ROZEREM) PO (21:42)
[2018-06-28] MEDS: ATENOLOL 50 MG TAB PO (21:43)
[2018-06-29] MEDS: traZODone 25MG PER 1/2 TABLET PO ×2 (00:36→23:26)
[2018-06-29] MEDS: LEVOTHYROXINE 75MCG TABLET (0.075MG) PO (05:30)
[2018-06-29] MEDS: LEVOTHYROXINE 100MCG TABLET (0.1MG) PO (05:30)
[2018-06-29 06:54] LABS: BASO # 0.1 10^3/uL (0.0-0.2); BASO % 0.9 % (0.0-1.0); EOS # 0.2 10^3/uL (0.0-0.50); EOS % 3.7 % (0.0-3.0); HEMATOCRIT 37.4 % (36.0-47.0); HEMOGLOBIN 10.9 g/dl (12.0-15.5); IMMATURE GRANULOCYTE % 0.3 % (0-3.0); LYMPH # 1.2 10^3/uL (1.5-4.5); LYMPH % 20.1 % (24.0-44.0); MEAN CORPUSCULAR HEMOGLOBIN 26.2 pg (27.0-33.0); MEAN CORPUSCULAR HGB CONC 29.1 g/dl (32.0-36.5); MEAN CORPUSCULAR VOLUME 89.9 fl (80.0-96.0); MONO # 0.5 10^3/uL (0.0-0.8); MONO % 8.7 % (0.0-5.0); NEUTROPHILS # 3.8 10^3/uL (1.8-7.7); NEUTROPHILS % 66.3 % (36.0-66.0); PLATELET COUNT, AUTOMATED 372 10^3/uL (150-450); RED BLOOD COUNT 4.16 10^6/uL (4.00-5.40); RED CELL DISTRIBUTION WIDTH 15.5 % (11.5-14.5); WHITE BLOOD COUNT 5.7 10^3/uL (4.0-10.0)
[2018-06-29 07:28] LABS: ALBUMIN 2.8 GM/DL (3.2-5.2); ALKALINE PHOSPHATASE 98 U/L (45-117); ALT/SGPT 21 U/L (12-78); ANION GAP 5 MEQ/L (8-16); AST/SGOT 16 U/L (7-37); BILIRUBIN,TOTAL 0.3 MG/DL (0.2-1.0); BLOOD UREA NITROGEN 16 MG/DL (7-18); CALCIUM LEVEL 8.9 MG/DL (8.8-10.2); CARBON DIOXIDE LEVEL 33 MEQ/L (21-32); CHLORIDE LEVEL 102 MEQ/L (98-107); CREATININE FOR GFR 0.58 MG/DL (0.55-1.30); GLOMERULAR FILTRATION RATE > 60.0 (>39); GLUCOSE, FASTING 122 MG/DL (70-100); POTASSIUM SERUM 3.9 MEQ/L (3.5-5.1); SODIUM LEVEL 140 MEQ/L (136-145); TOTAL PROTEIN 6.8 GM/DL (6.4-8.2)
[2018-06-29] MEDS: CEFDINIR 300 MG CAP (OMNICEF) PO ×2 (09:29→21:05)
[2018-06-29] MEDS: LACTOBACILLUS ACIDOPHILUS CAP (BACID) PO ×2 (09:30→21:05)
[2018-06-29] MEDS: ASPIRIN 81 MG ENTERIC TAB PO (09:30)
[2018-06-29] MEDS: FUROSEMIDE 20 MG TAB PO (09:30)
[2018-06-29] MEDS: NYSTATIN 100,000 UNITS/GM TOPICAL PWD 15 GM TOP ×2 (09:30→21:06)
[2018-06-29] MEDS: ENOXAPARIN 40 MG/0.4 ML SYRINGE (J1650) SC (09:31)
[2018-06-29] MEDS: SANTYL OINT 30GM TOP (11:19)
[2018-06-29] MEDS: CALCIUM CARBONATE 500 MG CHEW U/D PO (13:00)
[2018-06-29] MEDS: ACETAMINOPH W/CODEINE #3 TAB UD PO ×2 (14:08→21:57)
[2018-06-29] MEDS: ATENOLOL 50 MG TAB PO (21:05)
[2018-06-29] MEDS: RAMELTEON 8 MG TAB (ROZEREM) PO (21:05)
[2018-06-30] MEDS: LEVOTHYROXINE 100MCG TABLET (0.1MG) PO (05:40)
[2018-06-30] MEDS: LEVOTHYROXINE 75MCG TABLET (0.075MG) PO (05:40)
[2018-06-30] MEDS: ACETAMINOPH W/CODEINE #3 TAB UD PO ×2 (06:31→20:42)
[2018-06-30 06:45] LABS: BASO % 0.7 % (0.0-1.0); EOS # 0.2 10^3/uL (0.0-0.50); EOS % 3.8 % (0.0-3.0); HEMATOCRIT 36.2 % (36.0-47.0); HEMOGLOBIN 10.6 g/dl (12.0-15.5); IMMATURE GRANULOCYTE % 0.3 % (0-3.0); LYMPH # 1.1 10^3/uL (1.5-4.5); LYMPH % 18.4 % (24.0-44.0); MEAN CORPUSCULAR HEMOGLOBIN 26.2 pg (27.0-33.0); MEAN CORPUSCULAR HGB CONC 29.3 g/dl (32.0-36.5); MEAN CORPUSCULAR VOLUME 89.6 fl (80.0-96.0); MONO # 0.7 10^3/uL (0.0-0.8); MONO % 10.9 % (0.0-5.0); NEUTROPHILS % 65.9 % (36.0-66.0); PLATELET COUNT, AUTOMATED 384 10^3/uL (150-450); RED BLOOD COUNT 4.04 10^6/uL (4.00-5.40); RED CELL DISTRIBUTION WIDTH 15.7 % (11.5-14.5)
[2018-06-30 07:02] LABS: ALBUMIN 2.6 GM/DL (3.2-5.2); ALBUMIN/GLOBULIN RATIO 0.67 (1.00-1.93); ALKALINE PHOSPHATASE 89 U/L (45-117); ALT/SGPT 19 U/L (12-78); ANION GAP 5 MEQ/L (8-16); AST/SGOT 14 U/L (7-37); BILIRUBIN,TOTAL 0.4 MG/DL (0.2-1.0); BLOOD UREA NITROGEN 12 MG/DL (7-18); CALCIUM LEVEL 8.4 MG/DL (8.8-10.2); CARBON DIOXIDE LEVEL 32 MEQ/L (21-32); CHLORIDE LEVEL 101 MEQ/L (98-107); GLOMERULAR FILTRATION RATE > 60.0 (>39); GLUCOSE, FASTING 100 MG/DL (70-100); MAGNESIUM LEVEL 1.9 MG/DL (1.8-2.4); POTASSIUM SERUM 4.4 MEQ/L (3.5-5.1); SODIUM LEVEL 138 MEQ/L (136-145); TOTAL PROTEIN 6.5 GM/DL (6.4-8.2)
[2018-06-30] MEDS: ASPIRIN 81 MG ENTERIC TAB PO (09:30)
[2018-06-30] MEDS: CEFDINIR 300 MG CAP (OMNICEF) PO ×2 (09:30→20:43)
[2018-06-30] MEDS: LACTOBACILLUS ACIDOPHILUS CAP (BACID) PO ×2 (09:30→20:42)
[2018-06-30] MEDS: FUROSEMIDE 20 MG TAB PO (09:30)
[2018-06-30] MEDS: ENOXAPARIN 40 MG/0.4 ML SYRINGE (J1650) SC (09:30)
[2018-06-30] MEDS: NYSTATIN 100,000 UNITS/GM TOPICAL PWD 15 GM TOP ×2 (09:31→20:44)
[2018-06-30] MEDS: ATENOLOL 50 MG TAB PO (20:41)
[2018-06-30] MEDS: RAMELTEON 8 MG TAB (ROZEREM) PO (20:42)
[2018-06-30] MEDS: ACETAMINOPHEN TAB 650MG DOSE (2X325MG) PO (21:39)
[2018-06-30] MEDS: traZODone 25MG PER 1/2 TABLET PO (22:50)
[2018-07-01] MEDS: ACETAMINOPH W/CODEINE #3 TAB UD PO (06:05)
[2018-07-01] MEDS: LEVOTHYROXINE 100MCG TABLET (0.1MG) PO (06:05)
[2018-07-01] MEDS: LEVOTHYROXINE 75MCG TABLET (0.075MG) PO (06:05)
[2018-07-01 06:42] LABS: BASO # 0.1 10^3/uL (0.0-0.2); BASO % 1.2 % (0.0-1.0); EOS # 0.2 10^3/uL (0.0-0.50); EOS % 3.7 % (0.0-3.0); HEMATOCRIT 34.8 % (36.0-47.0); HEMOGLOBIN 10.3 g/dl (12.0-15.5); IMMATURE GRANULOCYTE % 0.4 % (0-3.0); LYMPH # 1.2 10^3/uL (1.5-4.5); LYMPH % 24.4 % (24.0-44.0); MEAN CORPUSCULAR HEMOGLOBIN 26.3 pg (27.0-33.0); MEAN CORPUSCULAR HGB CONC 29.6 g/dl (32.0-36.5); MEAN CORPUSCULAR VOLUME 88.8 fl (80.0-96.0); MONO # 0.6 10^3/uL (0.0-0.8); NEUTROPHILS # 2.9 10^3/uL (1.8-7.7); NEUTROPHILS % 58.3 % (36.0-66.0); PLATELET COUNT, AUTOMATED 370 10^3/uL (150-450); RED BLOOD COUNT 3.92 10^6/uL (4.00-5.40); RED CELL DISTRIBUTION WIDTH 15.9 % (11.5-14.5); WHITE BLOOD COUNT 4.9 10^3/uL (4.0-10.0)
[2018-07-01 07:08] LABS: ALBUMIN 2.6 GM/DL (3.2-5.2); ALKALINE PHOSPHATASE 84 U/L (45-117); ALT/SGPT 15 U/L (12-78); ANION GAP 4 MEQ/L (8-16); AST/SGOT 13 U/L (7-37); BILIRUBIN,TOTAL 0.4 MG/DL (0.2-1.0); BLOOD UREA NITROGEN 14 MG/DL (7-18); CALCIUM LEVEL 8.1 MG/DL (8.8-10.2); CARBON DIOXIDE LEVEL 32 MEQ/L (21-32); CHLORIDE LEVEL 103 MEQ/L (98-107); CREATININE FOR GFR 0.65 MG/DL (0.55-1.30); GLOMERULAR FILTRATION RATE > 60.0 (>39); GLUCOSE, FASTING 123 MG/DL (70-100); MAGNESIUM LEVEL 1.8 MG/DL (1.8-2.4); POTASSIUM SERUM 4.1 MEQ/L (3.5-5.1); SODIUM LEVEL 139 MEQ/L (136-145); TOTAL PROTEIN 6.3 GM/DL (6.4-8.2)
[2018-07-01] MEDS: LACTOBACILLUS ACIDOPHILUS CAP (BACID) PO (08:50)
[2018-07-01] MEDS: CEFDINIR 300 MG CAP (OMNICEF) PO (08:51)
[2018-07-01] MEDS: FUROSEMIDE 20 MG TAB PO (08:51)
[2018-07-01] MEDS: ENOXAPARIN 40 MG/0.4 ML SYRINGE (J1650) SC (08:51)
[2018-07-01] MEDS: ASPIRIN 81 MG ENTERIC TAB PO (08:51)
[2018-07-01] MEDS: NYSTATIN 100,000 UNITS/GM TOPICAL PWD 15 GM TOP (08:52)
[2018-07-01] MEDS: SANTYL OINT 30GM TOP (08:52)
== END 2018-07-01 14:29 | disposition home health service (06) | DRG 871 ==
LOC: M ED 22:18 → M MSPAV 06-21 15:11 → M PCU 06-19 15:10 → M ED INP 06-17 04:39 → M ICU 06-17 06:06 → M ED INP 06-17 06:33 → M ICU 06-17 08:50
PROC: 05HN33Z Insertion of Infusion Device into Left Internal Jugular Vein, Percutaneous Approach (ICD-10-PCS; principal; 2018-06-17)
DX: A41.9 Sepsis, unspecified organism (principal); R65.21 Severe sepsis with septic shock; N39.0 Urinary tract infection, site not specified; Z68.44 Body mass index [BMI] 60.0-69.9, adult; D84.9 Immunodeficiency, unspecified; L97.919 Non-pressure chronic ulcer of unspecified part of right lower leg with unspecified severity; L97.929 Non-pressure chronic ulcer of unspecified part of left lower leg with unspecified severity; E66.01 Morbid (severe) obesity due to excess calories; B96.20 Unspecified Escherichia coli [E. coli] as the cause of diseases classified elsewhere; L08.0 Pyoderma; I83.029 Varicose veins of left lower extremity with ulcer of unspecified site; I83.019 Varicose veins of right lower extremity with ulcer of unspecified site; E03.9 Hypothyroidism, unspecified; I10 Essential (primary) hypertension; G47.00 Insomnia, unspecified; Z87.442 Personal history of urinary calculi; Z96.653 Presence of artificial knee joint, bilateral; Z88.0 Allergy status to penicillin; Z88.2 Allergy status to sulfonamides; Z91.048 Other nonmedicinal substance allergy status; Z91.030 Bee allergy status; Z79.51 Long term (current) use of inhaled steroids; Z79.82 Long term (current) use of aspirin; Z87.440 Personal history of urinary (tract) infections; Z79.899 Other long term (current) drug therapy; Z16.24 Resistance to multiple antibiotics

== ENCOUNTER 2019-06-03 14:29 | Inpatient (IN) | payer MEDICARE, OTHER ==
[~2019-06-03] VITALS: Ht 162.6 cm; Wt 183.6 kg
[~2019-06-03 14:29] MED LIST changes: +ACET-716 PO; -ACET30TAB PO; +ASPI-255 PO; -ASPI325T24 PO; +ASPI81TAEC PO; +CEPH500T PO; +FURO40TA2 PO; -LASI20TA PO; +LASI20TA3 PO; +LINE1TAB PO; -LINE60TAB PO; +MELO15TA28 PO; -MELO15TA4 PO; +MYCO500T PO; +NYST-15 TOP; -NYST10PW TOP; -PENT400T19 PO; +PENT400T22 PO; +PRED20TA PO; +PROT0.1O EXT; +VENTAER INH; -VITA1CAP40 PO; +VITA50005 PO
[2019-06-03] MEDS ORDERED: NYST1POW9 TOP (15:08)
[2019-06-03] MEDS ORDERED: LOPE1CAP5 PO (15:10)
[2019-06-03] MEDS ORDERED: NEXI20CA33 PO (15:11)
[2019-06-03 18:12] LABS: BASO # 0.1 10^3/uL (0.0-0.2); BASO % 0.7 % (0.0-1.0); EOS % 0.4 % (0.0-3.0); HEMATOCRIT 46.4 % (36.0-47.0); HEMOGLOBIN 13.2 g/dl (12.0-15.5); LYMPH # 0.8 10^3/uL (1.5-5.0); MEAN CORPUSCULAR HEMOGLOBIN 26.9 pg (27.0-33.0); MEAN CORPUSCULAR HGB CONC 28.4 g/dl (32.0-36.5); MEAN CORPUSCULAR VOLUME 94.5 fl (80.0-96.0); MONO # 0.6 10^3/uL (0.0-0.8); MONO % 9.5 % (0.0-5.0); NEUTROPHILS # 5.2 10^3/uL (1.5-8.5); NEUTROPHILS % 77.3 % (36.0-66.0); RED BLOOD COUNT 4.91 10^6/uL (4.00-5.40); WHITE BLOOD COUNT 6.7 10^3/uL (4.0-10.0)
[2019-06-03 18:35] LABS: PLATELET COUNT, AUTOMATED 254 10^3/uL (150-450)
[2019-06-03 18:43] LABS: ALT/SGPT 13 U/L (12-78); BILIRUBIN,TOTAL 0.6 MG/DL (0.2-1.0); BLOOD UREA NITROGEN 18 MG/DL (7-18); C REACTIVE PROTEIN QUANTITATIV 3.95 MG/DL (0.00-0.30); CALCIUM LEVEL 8.9 MG/DL (8.8-10.2); CARBON DIOXIDE LEVEL 39 MEQ/L (21-32); CHLORIDE LEVEL 98 MEQ/L (98-107); CREATININE FOR GFR 0.65 MG/DL (0.55-1.30); GLOMERULAR FILTRATION RATE > 60.0 (>39); GLUCOSE, FASTING 105 MG/DL (70-100); POTASSIUM SERUM 4.5 MEQ/L (3.5-5.1); SODIUM LEVEL 135 MEQ/L (136-145)
[2019-06-03] MEDS ORDERED: ACETAMINOPH W/CODEINE #3 TAB UD PO ONE (19:30)
[2019-06-03] MEDS ORDERED: CIPROFLOXACIN 400 MG in APPROPRIATE DILUENT 1 EA IV ONE (20:00)
[2019-06-03] MEDS ORDERED: RAMELTEON 8 MG TAB (ROZEREM) PO SCH (21:00)
[2019-06-03] MEDS ORDERED: LUTE1CAP7 PO (21:49)
[2019-06-03] MEDS ORDERED: NYST10CR TOP (21:52)
[2019-06-03] MEDS ORDERED: LOPE2TAB14 PO (21:56)
[2019-06-03 22:01] LABS: FREE T4 1.22 NG/DL (0.76-1.46); NT-PRO BNP 2830 PG/ML (<125)
[2019-06-03] MEDS ORDERED: MULTCAP PO (22:02)
[2019-06-03] MEDS ORDERED: MELA5TAB11 PO (22:02)
[2019-06-03] MEDS ORDERED: PROBCAP14 PO (22:02)
[2019-06-03] MEDS ORDERED: SYNT175T2 PO (22:02)
[2019-06-03] MEDS ORDERED: AZO-95TA3 PO (22:02)
[2019-06-03] MEDS ORDERED: LOPERAMIDE 2 MG CAP PO PRN (22:15)
[2019-06-03] MEDS ORDERED: ALBUTEROL 90 MCG/ACT 8GM HFA INHALER INH PRN (22:15)
--- NOTE | 2019-06-03 22:29 | HPEPDOC ---
[facility] Medical History & Physical Date of Admission Jun 03, 2019 Date of Service: Jun 03, 2019 Primary Care Physician: July Foster CARD DEALER Other Provider Former Miles Renee patient, plans to establish care with Regina Foster Attending Physician: SETH MCBRIDE MD History and Physical PRIMARY CARE PROVIDER: Former Miles Renee patient, plans to establish care with Regina Foster ATTENDING: Dr. Seth Mcbride CHIEF COMPLAINT: generalized weakness HISTORY OF PRESENT ILLNESS: Patient is a 74 year old female presenting with chief complaint of worsening generalized weakness for the past 4 days. While she has limited mobility, she states at baseline she is able to move from her chair to the kitchen and back without difficulty. Now, however, she is only able to go from her chair to her bedside commode (3 feet away) and only with great difficulty. She presented to the emergency department today after attempting to sit on her commode her leg gave out, she fell to her knees, and and required 7 fire personnel to assist patient onto stretcher. Of note, while in transit the patients pulse ox was 88% but once she was sat up it improved to 94%. She again had a desaturation in the [facility] ED to 89% and after nasal cannula administration this improved. She states that beyond her generalized weakness she has had burning on urination the last 4 days with accompanying chills, increased lethargy, and increased inhaler use due to difficulty breathing. 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 Presently she admits to some ongoing R-knee pain and stiffness since her fall but acknowledges no other complaints at this time. 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 There is smoking in her home FAMILY HISTORY: No pertinent family history ALLERGIES: Please see below. REVIEW OF SYSTEMS: GENERAL: Denies fevers, recent unexpected weight change, night sweats, hemoptys is. Admits to chills. HEENT: Denies headache, dizziness, vision changes, hearing loss, sore throat CARDIOVASCULAR: Denies chest pain, palpitations, orthopnea RESPIRATORY: Denies shortness of breath, wheezing, cough GASTROINTESTINAL: denies nausea, vomiting, abdominal pain, constipation, diarrhea, bloody stool GENITOURINARY: Denies urinary urgency, hematuria. Admits to dysuria as per HPI MUSCULOSKELETAL: Admits to right-sided knee pain. Admits to generalized weakness NEUROLOGICAL: Denies any numbness/tingling, focal weakness, or syncope HOME MEDICATIONS: Please see below. PHYSICAL EXAMINATION: Vitals: (see below) General: Pleasant appearing female who appears stated age in no acute distress, laying comfortably in bed. HEENT: Normocephalic, atraumatic. EOMI. No scleral icterus. Moist mucous membranes. Poor dentition. No pharyngeal erythema or uvular deviation. Neck: No JVD, lymphadenopathy, or thyromegaly. Cardiac: RRR, heart sounds distant Normal S1 and S2, No murmurs, gallops, rubs. Pulm: Lung sounds distant and difficult to auscultate secondary to body habitus. No wheezing, crackles, rhonchi Abd: Obese. Bowel Sounds present. Abdomen is soft, non-tender, non-distended. No guarding, rebound tenderness, or rigidity. Ext: Bilateral LE non-pitting edema with chronic venous stasis changes present. Skin: Chronic pyodermic on bilateral lower extremities, abdomen. Erythema in the inguinal folds. Neuro: Unable to assess LE strength due to weakness, strength +4/5 in bilateral UE CN 3-12 grossly intact. Sensation to fine touch intact in BLE and BUE. LABORATORY DATA: See below. IMAGING: MICROBIOLOGY: Please see below. ASSESSMENT/PLAN: 74 year old female here with UTI and physical deconditioning. #. UTI -Patient has history of MDR Escherichia coli in 05/2018 based on sensitivities from the panel we will initiate treatment with IV meropenem pending results of urine culture.Patient also has history of pseudomonas positive urine culture and MRSA. While I currently do not have high index of suspicion for sepsis, given patient's history of MDR organisms, chronic immunosuppresive therapy, and mildly elevated CRP we will continue to monitor closely for changes in patient's status. -Tylenol ordered for pain/fever. Will hold giving IV fluids as the patient is not hypotensive, may consider if patient has poor urine output or signs of sep sis emerge #. Deconditioning -Ordering physical therapy evaluation as her fall is ultimately will let her to come here and will prevent future readmissions or possible fractures #. Increased difficulty breathing/increased inhaler use. -Patient has increased her inhaler use over the last several days, she has no history of asthma, COPD, or lung disease that has been formally diagnosed per her outpatient chart and obtained the inhaler through prior urgent care visits. -We will continue her albuterol inpatient for now, but she should have spirometry done outpatient to determine the appropriateness/her need for an inhaler. -Will order portable CXR and VBG to see if their is anything contributing to this beyond her infection, the stress from her fall, deconditioning and body habitus. Will also trial her off nasal cannula to see how she does. #. Right knee pain -Ordering AP and lateral x-rays of bilateral knees to rule out fractures with assisted ambulation only #. Morbid obesity -Complicating care -Dietary consult ordered #. Obesity hypoventilation syndrome -Suspected based on elevated bicarbonate and body habitus, this has been present on prior admissions. -Patient has never undergone workup for WAN and would likely benefit from home sleep study or nocturnal oximetry while she's here in the hospital -WAN protocol ordered #. Hypertension -Continue with home blood pressure medication -Echo done by Dr. Oneil 01/2018 demonstrates: mild concentric LVH, features of LV diastolic dysfunction grade 1. EF 60-65% Aortic valve sclerosis without stenosis/regurgitation Mild tricuspid regurgitation with mild pulmonary hypertension (30 mmHg) IVC mild enlarged, CVP may be elevated Study technically limited 2/2 body habitus #. Hypothyroidism -Continue with home Synthroid #. Pyodermia -Holding mycophenolate mofetil as patient currently has infection -Continue home Lasix #. inguinal fungal infection -Continue with nystatin therapy #.GERD -Continue with home omeprazole -DVT prophy: Teds, SQ heparin Vital Signs Vital Signs Date Time Temp Pulse Resp B/P (MAP) Pulse Ox O2 Delivery O2 Flow Rate FiO2 06/03/19 21:01 59 20 169/75 (106) 96 Nasal Cannula 2.0 06/03/19 15:00 97.8 Laboratory Data Labs 24H Laboratory Tests 2 06/03/19 17:57: Immature Granulocyte % (Auto) 0.1, White Blood Count 6.7, Red Blood Count 4.91, Hemoglobin 13.2, Hematocrit 46.4, Mean Corpuscular Volume 94.5, Mean Corpuscular Hemoglobin 26.9L, Mean Corpuscular Hemoglobin Concent 28.4L, Red Cell Dis tribution Width 16.3H, Platelet Count 254, Neutrophils (%) (Auto) 77.3H, Lymphocytes (%) (Auto) 12.0L, Monocytes (%) (Auto) 9.5H, Eosinophils (%) (Auto) 0.4, Basophils (%) (Auto) 0.7, Neutrophils # (Auto) 5.2, Lymphocytes # (Auto) 0.8L, Monocytes # (Auto) 0.6, Eosinophils # (Auto) 0.0, Basophils # (Auto) 0.1, Nucleated Red Blood Cells % (auto) 0.0, Anion Gap , Glomerular Filtration Rate > 60.0, Blood Urea Nitrogen 18, Creatinine 0.65, Sodium Level 135L, Potassium Level 4.5, Chloride Level 98, Carbon Dioxide Level 39H, Calcium Level 8.9, Aspartate Amino Transf (AST/SGOT) 15, Alanine Aminotransferase (ALT/SGPT) 13, Alkaline Phosphatase 95, Total Bilirubin 0.6, Total Protein 7.0, Albumin 3.0L, C-Reactive Protein, Quantitative 3.95H, Albumin/Globulin Ratio 0.75L 06/03/19 18:45: Urine Color YELLOW, Urine Appearance CLOUDYH, Urine pH 5.0, Urine Specific [place] 1.025, Urine Protein 3+H, Urine Glucose (UA) NEGATIVE, Urine Ketones NEGATIVE, Urine Blood 1+H, Urine Nitrite POSITIVEH, Urine Bilirubin NEGATIVE, Urine Urobilinogen 0.2, Urine Leukocyte Esterase 2+H, Urine WBC (Auto) 102H, Urine RBC (Auto) 11H, Urine Hyaline Casts (Auto) 0, Urine Bacteria (Auto) 3+H, Urine Squamous Epithelial Cells 17, Urine Transitional Epithelial Cells 2, Urine Amorphous Sediment SMALLH, Urine Mucus (Auto) SMALL, Urine Sperm (Auto) CBC/BMP Laboratory Tests 06/03/19 17:57 Red Blood Count 4.91, Mean Corpuscular Volume 94.5, Mean Corpuscular Hemoglobin 26.9 L, Mean Corpuscular Hemoglobin Concent 28.4 L, Red Cell Distribution Width 16.3 H, Neutrophils (%) (Auto) 77.3 H, Lymphocytes (%) (Auto) 12.0 L, Monocytes (%) (Auto) 9.5 H, Eosinophils (%) (Auto) 0.4, Basophils (%) (Auto) 0.7, Neutrophils # (Auto) 5.2, Lymphocytes # (Auto) 0.8 L, Monocytes # (Auto) 0.6, Eosinophils # (Auto) 0.0, Basophils # (Auto) 0.1, Calcium Level 8.9, Aspartate Amino Transf (AST/SGOT) 15, Alanine Aminotransferase (ALT/SGPT) 13, Alkaline Phosphatase 95, Total Bilirubin 0.6, Total Protein 7.0, Albumin 3.0 L Microbiology Microbiology 06/03/19 Blood Culture, Received Pending 06/03/19 Blood Culture, Received Pending 06/03/19 Urine Culture, Received Pending Home Medications Scheduled Aspirin (Aspirin EC) 81 Mg Tabec, 81 MG PO Q2D Atenolol (Atenolol) 50 Mg Tab, 50 MG PO DAILY Collagenase Clostridium Hist. (Santyl) 250 Unit/Gm Oin, 1 APPLIC TOP Q2D USES ON RIGHT LEG Ergocalciferol (Vitamin D2) (Vitamin D2) 50,000 Unit Cap, 50,000 UNIT PO QWEEK SATURDAYS Esomeprazole Magnesium (Nexium 24Hr) 20 Mg Capsule.dr, 40 MG PO QHS Furosemide (Furosemide) 40 Mg Tab, 20 MG PO DAILY PT STATES MED MAKES HER ELECTROLYTES GO CRAZY. SHE DOESN'T TAKE MEDICATION RELIGIOUSLY Lactobacillus Acidophilus (Probiotic) 1 Each Capsule, 1 CAP PO DAILY Levothyroxine Sodium (Synthroid) 175 Mcg Tablet, 175 MCG PO DAILY PT TAKES BRAND NAME SYNTHROID Lutein/Zeaxanthin (Lutein-Zeaxanthin 20-1 mg Sfgl) 1 Each Capsule, 1 CAP PO DAILY Melatonin (Melatonin) 5 Mg Tab.rapdis, 15 MG PO QHS Multivitamin (Multivitamins) 1 Each Capsule, 1 CAP PO DAILY Mycophenolate Mofetil (Mycophenolate Mofetil) 500 Mg Tab, 1,500 MG PO BID TAKES IN MORNING AND AT LUNCHTIME Nystatin (Nystatin Powder) 15 Gm Powder, 1 APLCT TOP BID APPLY TO CREASES ON LEGS Nystatin (Nystatin) 15 Gm Cream..g., 1 APPLIC TOP DAILY USES ON LEGS Phenazopyridine HCl (Azo Urinary Pain Relief) 95 Mg Tablet, 95 MG PO TID Tacrolimus (Protopic) 0.1 % Oin, 1 APPLIC EXT Q2D USES ON LEGS AT NIGHT Scheduled PRN Acetaminophen with Codeine (Acetaminophen-Cod #3 Tablet) 1 Each Tab, 1 TAB PO BID PRN for PAIN Albuterol Sulfate (Ventolin Hfa) 108 Mcg/Act Aer, 2 PUFFS INH Q4H PRN for SHORTNESS OF BREATH Loperamide HCl (Loperamide) 2 Mg Tablet, 1 MG PO DAILY PRN for DIARRHEA Allergies Coded Allergies: Penicillins (Verified Allergy, Intermediate, 06/03/19) localized reaction at injection site TAPE (Verified Allergy, Intermediate, PLASTIC TAPE - RASH, 03/05/17) bee venom protein (honey bee) (Verified Allergy, Intermediate, 06/03/19) localized swelling at site sulfamethoxazole (Verified Allergy, Unknown, 06/03/19) A-FIB/CHADSVASC A-FIB History Current/History of A-Fib/PAF?: No GME ATTESTATION GME ATTESTATION My faculty preceptor for this patient encounter was physically present during the encounter and was fully available. All aspects of the patient interview, examination, medical decision making process, and medical care plan development were reviewed and approved by the faculty preceptor. The faculty preceptor is aware and concurs with the plan as stated in the body of this note and will at test to such by his/her cosignature. ATTENDING NOTE I personally talked with and examined the patient at 915PM and discussed the case with and agree with his findings and recommendations. Ms. Sales is a 74 yr old F w a PMH of Hypothyroidism, Chronic Venous stasis ulcers, recurrent UTIs/Pyelonephritis, morbid obesity and HTN who was brought to the ED for evaluation of progressively worsening weakness over a period of a few days which resulted in a fall. Her UA was positive for leuk blanca, WBC and nitrites; she has been given one dose of ciprofloxaxin. She will be admitted for management of a weakness likely 2/2 a UTI. FERCHO HARRELL DO Jun 03, 2019 22:29 SETH MCBRIDE MD Jun 03, 2019 23:32
[2019-06-03 23:25] VITALS: BP 125/58
[2019-06-03 23:51] LABS: VENOUS BASE EXCESS 6.8 (-2.0-2.0); VENOUS HCO3 35.2 MEQ/L (23.0-27.0); VENOUS O2 SATURATION 85.7 % (60.0-80.0); VENOUS PARTIAL PRESSURE O2 54.7 mmHg (30.0-50.0); VENOUS PH 7.325 UNITS (7.330-7.430); VENOUS STANDARD HCO3 30.3 MEQ/L; VENOUS TOTAL CO2 37.3 MEQ/L (24.0-28.0)
--- NOTE | 2019-06-03 23:57 | REPVR ---
EXAM: XR Chest, 1 View EXAM DATE/TIME: 06/03/2019 11:45 PM CLINICAL HISTORY: 74 years old, female; Other: Difficulty breathing TECHNIQUE: Imaging protocol: XR of the chest Views: 1 view. COMPARISON: CR PORTABLE CHEST X-RAY 06/17/2018 6:15 PM FINDINGS: Tubes, catheters and devices: Interval removal of left internal jugular central line. Lungs: Slightly increased bibasilar infiltrates and atelectasis. Pleural space: Unremarkable. No pleural effusion. No pneumothorax. Heart/Mediastinum: The heart and mediastinum are unchanged. Bones/joints: Metallic plate and screws along the proximal right humerus. Soft tissues: Generous overlying soft tissues. Other findings: Rotation to the left. IMPRESSION: 1. Interval removal of left internal jugular central line since 06/17/2018. 2. Slightly increased bibasilar infiltrates or atelectasis since the prior study. Electronically signed by: Lamont Ball On 06/03/2019 23:56:54 PM
[2019-06-04] MEDS: PHENAZOPYRIDINE 100 MG TAB PO SCH ×4 (00:02→20:35)
[2019-06-04] MEDS: OMEPRAZOLE 20 MG CAP PO SCH ×2 (00:02→20:35)
[2019-06-04] MEDS: NYSTATIN 100,000 UNITS/GM TOPICAL PWD 15 GM TOP SCH ×3 (00:02→20:35)
[2019-06-04] MEDS: MEROPENEM INJ 1 GM in APPROPRIATE DILUENT 1 EA IV SCH ×4 (00:39→23:24)
[2019-06-04] MEDS: ACETAMINOPHEN TAB 650MG DOSE (2X325MG) PO PRN ×3 (02:16→22:56)
[2019-06-04 05:09] VITALS: BP 124/56
[2019-06-04] MEDS: LEVOTHYROXINE 88MCG TABLET (0.088 MG) PO SCH (05:12)
[2019-06-04] MEDS ORDERED: LEVOTHYROXINE 150MCG TABLET (0.15MG) PO SCH (06:00)
[2019-06-04 06:43] LABS: HEMATOCRIT 41.9 % (36.0-47.0); HEMOGLOBIN 11.9 g/dl (12.0-15.5); MEAN CORPUSCULAR HEMOGLOBIN 26.9 pg (27.0-33.0); MEAN CORPUSCULAR HGB CONC 28.4 g/dl (32.0-36.5); MEAN CORPUSCULAR VOLUME 94.8 fl (80.0-96.0); PLATELET COUNT, AUTOMATED 249 10^3/uL (150-450); RED BLOOD COUNT 4.42 10^6/uL (4.00-5.40); WHITE BLOOD COUNT 5.2 10^3/uL (4.0-10.0)
[2019-06-04 07:05] LABS: BLOOD UREA NITROGEN 17 MG/DL (7-18); CALCIUM LEVEL 8.4 MG/DL (8.8-10.2); CARBON DIOXIDE LEVEL 37 MEQ/L (21-32); CHLORIDE LEVEL 99 MEQ/L (98-107); CREATININE FOR GFR 0.64 MG/DL (0.55-1.30); GLOMERULAR FILTRATION RATE > 60.0 (>39); GLUCOSE, FASTING 102 MG/DL (70-100); POTASSIUM SERUM 4.4 MEQ/L (3.5-5.1); SODIUM LEVEL 139 MEQ/L (136-145)
[2019-06-04] MEDS ORDERED: MYCOPHENOLATE MOFETIL 250 MG CAP (J7517) PO SCH (08:00)
--- NOTE | 2019-06-04 08:00 | REP ---
Clinical: Trauma. Fall. Technique: AP, lateral, oblique views of the right and left knee. Findings: Left knee demonstrates prior arthroplasty and chronic calcifications in the soft tissues at the level of the proximal tibia. Overlying soft tissue swelling is appreciated. No definite effusion. No obvious acute fracture. Right knee demonstrates prior arthroplasty and chronic calcifications in the soft tissues adjacent to the tibial tuberosity. Overlying soft tissue swelling is appreciated. Effusion cannot be excluded. No obvious acute fracture. Impression: No obvious acute fracture. If the patient remains symptomatic consider reevaluation. Electronically Signed by Mihai Valadez MD 06/04/2019 07:51 A
[2019-06-04 08:27] VITALS: BP 124/56
[2019-06-04] MEDS: LACTOBACILLUS ACIDOPHILUS CAP (BACID) PO SCH (08:27)
[2019-06-04] MEDS: ASPIRIN 81 MG ENTERIC TAB PO SCH (08:27)
[2019-06-04] MEDS: NYSTATIN CREAM 15 GM TOP SCH (08:27)
[2019-06-04] MEDS: HEPARIN SOD (PORCINE) 5000 UNITS/ML VIAL SC SCH ×2 (08:28→17:26)
[2019-06-04] MEDS ORDERED: PREVNAR 13 VACCINE SYRINGE (CPT CODE:90670) IM ONE (09:00)
[2019-06-04] MEDS ORDERED: FUROSEMIDE 20 MG TAB PO SCH (09:00)
[2019-06-04] MEDS ORDERED: ATENOLOL 50 MG TAB PO SCH (09:00)
[2019-06-04 11:01] LABS: NT-PRO BNP 2630 PG/ML (<125)
[2019-06-04] MEDS: FUROSEMIDE 20 MG/2 ML VIAL (J1940) IV SCH ×3 (11:40→23:27)
[2019-06-04] MEDS ORDERED: IPRATROPIUM 0.5MG/ALBUTEROL 2.5MG INH SOL UD 3ML (DUONEB)(J7620) NEB PRN (13:00)
[2019-06-04 13:07] VITALS: BP 133/67
[2019-06-04 13:40] LABS: ABG BASE EXCESS 7.7 (-2.0-2.0); ABG HCO3 36.2 MEQ/L (22.0-26.0); ABG O2 SATURATION 88.6 % (95.0-99.0); ABG PARTIAL PRESSURE O2 57.4 mmHg (75.0-100.0); ABG STANDARD HCO3 31.3 MEQ/L (22.0-26.0); ABG TOTAL CO2 38.4 MEQ/L (23.0-31.0); ABG pH (ARTERIAL) 7.324 UNITS (7.350-7.450)
[2019-06-04 13:42] LABS: ABG PARTIAL PRESSURE CO2 71.2 mmHg (35.0-45.0)
--- NOTE | 2019-06-04 13:55 | REP ---
Clinical: Shortness of breath. Comparison: 06/03/2019. Findings: Evaluation is limited by portable technique, underpenetration and poor inspiratory effort. Cardiomegaly and findings to suggest cephalization with increased pulmonary vasculature and infrahilar opacities are similar to prior examination and suggest elements of pulmonary vascular congestion/early pulmonary edema. Impression: No significant change from prior examination with findings to again suggest CHF/pulmonary edema. Electronically Signed by Mihai Valadez MD 06/04/2019 01:47 P
--- NOTE | 2019-06-04 14:39 | IPN ---
DATE OF SERVICE: 06/04/2019 SUBJECTIVE: The patient continues to complain of dyspnea at rest, lying at 30- 40 degrees, at the bedside. No chest pain, pressure, tightness, palpitations, lightheadedness, or dizziness. No fever, chills or cough. Denies any nausea, vomiting, abdominal pain. Denies any flank pain, dysuria, urgency, or frequency. OBJECTIVE/PHYSICAL EXAMINATION: Vital signs: Temperature 98, pulse 66, respiratory rate 18, blood pressure 124/56, 93% on 4 liters nasal cannula. Intake and output: Overnight input of 200. Current weight is 215.4 kg. Generally, the patient is morbidly obese with some slight conversational dyspnea, unable to complete a full sentence. Positive use of respiratory accessory muscles with mouth breathing. Positive jugular venous distention. No thyromegaly or cervical lymphadenopathy. Moist mucous membranes. Lungs: Diminished with bibasilar crackles. Heart: S1, S2, sinus rhythm. No murmurs, rubs or gallops. Abdomen: Obese, soft, nontender, nondistended. Positive erythema under the abdominal folds, under the breasts moist, warm, some skin breakdown of posterior lower extremities and upper thigh on the posterior aspect. Lower extremities: 3+ pitting edema to the sacrum with multiple open lesions on the thigh and the bilateral lower extremities. LABORATORY DATA: White count 5.2, hemoglobin 11.9, hematocrit 41.9, platelet count 2349. Sodium 139, potassium 4.4, chloride 99, carbon dioxide 37, BUN 17, creatinine 0.64, glucose of 102, BNP of 2630, total protein 7, albumin of 3, TSH 4.50, free T4 1.22. MRSA PCR is pending. Urinalysis: Cloudy urine, 3+ protein, 1+ blood, positive nitrite, 2+ leukocyte esterase, 102 WBC, 3+ bacteria. Urine culture and two sets of blood cultures and MRSA screen are pending. Knee x-ray 06/03/2019 bilateral, no obvious acute fracture. Left knee prior arthroplasty, chronic calcifications, some soft tissue swelling appreciated, no definite effusion, no obvious acute fracture. Right knee overlying soft tissue swelling is appreciated, effusion cannot be excluded, no obvious acute fracture. Chest x-ray 06/03/2019, interval removal of left internal jugular central line since 06/17/2018, slightly increased bibasilar infiltrate or atelectasis since prior study. ASSESSMENT AND PLAN: This is a 74-year-old female who lives at home, managed by her and a caregiver, usually walks with her walker, has a chair lift to the second floor and a garage entrance, not requiring any steps or stairs into the home, with morbid obesity, body mass index (BMI) of 81.5, probable obstructive sleep apnea and has not undergone any prior sleep study as outpatient, hypertension, hypothyroidism, history of recurrent urinary tract infections (UTIs) with extended spectrum beta-lactamase (ESBL) Escherichia (E) coli, history of perforated gastric ulcer, pyoderma gangrenosum, on chronic immunosuppressive therapy, chronic venous stasis ulcers, bilateral prostatic knee replacement, and kidney stones requiring stenting presents to the emergency room with a 4 day history of generalized weakness with limited mobility and fallen on her knees on the right side requiring several personnel to assist onto a stretcher. The patient was noted to have a pulse oximetry of 88%, when she sat up improved to 94%. She has no documented history of obstructive sleep apnea or congestive heart failure. She is admitted for urinary tract infection with history of ESBL E coli and is admitted for IV antibiotics and physical therapy. Chest x-ray on admission showed bibasilar infiltrated versus atelectasis. BNP was elevated with 2830 on admission. Current issues are as follows: 1. Acute hypoxic respiratory failure currently requiring oxygen of 2 liters, 98%, was 88% on room air, most likely secondary to untreated obstructive sleep apnea, obesity, hypoventilation syndrome and an element of cor pulmonale with right-sided congestive heart failure secondary to untreated obstructive sleep apnea. The patient will be placed on Lasix 20 mg intravenously every 6 hours with net negative goal of 1 liter daily, strict intake and output, daily weights, and monitor for electrolytes abnormalities such as low potassium and magnesium which will be supplemented as needed. 2-D echocardiogram has been ordered. The patient will be placed on 2 liter fluid restriction, daily weights, and strict intake and output. 2. Urinary tract infection present at admission with history of ESBL E coli and resistance to Levaquin. The patient is currently on IV meropenem. Await urine and blood culture results and change antibiotic as needed. 3. Cor pulmonale with probable right-sided heart failure, acute diastolic congestive heart failure exacerbation. Previous echo was in 2018. The patient will be diuresed with Lasix to net negative 1 liter daily, 2 liter fluid restriction, salt restriction, strict intake and output, and daily weights. The patient will benefit from cardiopulmonary rehab as outpatient. Weight loss has been emphasized with the who does most of the cooking at home. [employer] has been consulted for weight loss regimen and calorie count. 4. Probable obstructive sleep apnea. The patient has been kept on oxygen during naps as well as nightly. Will need a sleep study and continuous positive airway pressure (CPAP) machine at home as outpatient, referral to pulmonary critical care for management as outpatient. 5. Hypertension. Currently controlled on atenolol 50 mg daily. In light of current diuresis, we will need adjust the patient's atenolol dose to hold for systolic pressure less than 140 to allow for enough blood pressure for diuresis. 6. Hypothyroidism. The patient's TSH is elevated but free T4 is normal. Will keep at the same dose and recheck a thyroid profile. 7. Bilateral knee pain secondary to recent fall. X-rays have been negative for fractures. Activity as tolerated for now. Avoid opioid narcotics due increased risk of hypercapnic respiratory failure, hypercarbia, altered mental status. Physical therapy (PT), occupational therapy (OT) have been consulted and acute rehabilitation unit (ARU) screen. 8. History of perforated gastric ulcer. Currently on Prilosec 40 mg nightly. 9. History of pyoderma gangrenosum and chronic lower extremity venous stasis ulcers. The patient's chronic immunosuppressant therapy Cellcept has been held in light of acute infection. Will resume once the patient's infection has resolved. 10. History of kidney stones requiring stenting. The patient's creatinine is normal at this time. Will continue to monitor for now. 11. Obesity, hypoventilation syndrome complicating care, morbid obesity, BMI of 81.5 complicating care. MTDD
[2019-06-04] MEDS ORDERED: IPRATROPIUM 0.5MG/ALBUTEROL 2.5MG INH SOL UD 3ML (DUONEB)(J7620) NEB SCH (16:00)
[2019-06-04 18:37] LABS: BLOOD UREA NITROGEN 16 MG/DL (7-18); CALCIUM LEVEL 8.3 MG/DL (8.8-10.2); CARBON DIOXIDE LEVEL 36 MEQ/L (21-32); CHLORIDE LEVEL 99 MEQ/L (98-107); CREATININE FOR GFR 0.63 MG/DL (0.55-1.30); GLOMERULAR FILTRATION RATE > 60.0 (>39); GLUCOSE, FASTING 107 MG/DL (70-100); POTASSIUM SERUM 4.1 MEQ/L (3.5-5.1); SODIUM LEVEL 138 MEQ/L (136-145)
[2019-06-04 19:43] VITALS: BP 109/54
[2019-06-05] VITALS (7 sets, daily range): BP systolic 118–137; BP diastolic 54–70; O2SAT 89–92
[2019-06-05] MEDS: HEPARIN SOD (PORCINE) 5000 UNITS/ML VIAL SC SCH ×3 (01:07→16:23)
[2019-06-05] MEDS ORDERED: IPRATROPIUM 0.5MG/ALBUTEROL 2.5MG INH SOL UD 3ML (DUONEB)(J7620) NEB ONE (02:45)
[2019-06-05] MEDS: LEVOTHYROXINE 88MCG TABLET (0.088 MG) PO SCH (05:56)
[2019-06-05] MEDS: FUROSEMIDE 20 MG/2 ML VIAL (J1940) IV SCH ×3 (05:56→21:01)
[2019-06-05 07:32] LABS: HEMATOCRIT 40.4 % (36.0-47.0); HEMOGLOBIN 11.3 g/dl (12.0-15.5); MEAN CORPUSCULAR HEMOGLOBIN 26.3 pg (27.0-33.0); PLATELET COUNT, AUTOMATED 244 10^3/uL (150-450); WHITE BLOOD COUNT 5.2 10^3/uL (4.0-10.0)
[2019-06-05 07:53] LABS: HEMOGLOBIN A1c 6.3 %
[2019-06-05 08:01] LABS: BLOOD UREA NITROGEN 15 MG/DL (7-18); CALCIUM LEVEL 8.3 MG/DL (8.8-10.2); CARBON DIOXIDE LEVEL 40 MEQ/L (21-32); CHLORIDE LEVEL 96 MEQ/L (98-107); CHOLESTEROL LEVEL 115 MG/DL (<200); CHOLESTEROL RISK RATIO 2.948 (<5); FREE THYROXINE INDEX 2.5 % (1.3-4.8); GLOMERULAR FILTRATION RATE > 60.0 (>39); GLUCOSE, FASTING 112 MG/DL (70-100); HDL CHOLESTEROL 39 MG/DL (>40); LDL CHOLESTEROL 53 MG/DL (<100); NON-HDL-C 76 MG/DL; POTASSIUM SERUM 3.9 MEQ/L (3.5-5.1); SODIUM LEVEL 139 MEQ/L (136-145); T UPTAKE 37 % (30-39); THYROXINE (T4) 6.8 UG/DL (4.5-12.0); TRIGLYCERIDES LEVEL 115 MG/DL (<150)
[2019-06-05] MEDS ORDERED: ENTER DRUG NAME HERE (PATIENT'S OWN MED) TOP SCH (09:00)
[2019-06-05] MEDS: LACTOBACILLUS ACIDOPHILUS CAP (BACID) PO SCH (09:22)
[2019-06-05] MEDS: MEROPENEM INJ 1 GM in APPROPRIATE DILUENT 1 EA IV SCH ×3 (09:23→21:03)
[2019-06-05] MEDS: SANTYL OINT 30GM TOP SCH (09:23)
[2019-06-05] MEDS: PHENAZOPYRIDINE 100 MG TAB PO SCH ×2 (09:23→16:23)
[2019-06-05] MEDS: MUPIROCIN 2% OINT 22 GM TUBE TOP SCH (09:24)
[2019-06-05] MEDS: NYSTATIN 100,000 UNITS/GM TOPICAL PWD 15 GM TOP SCH ×2 (09:24→21:02)
[2019-06-05] MEDS: NYSTATIN CREAM 15 GM TOP SCH (09:25)
[2019-06-05] MEDS ORDERED: IPRATROPIUM 0.5MG/ALBUTEROL 2.5MG INH SOL UD 3ML (DUONEB)(J7620) NEB PRN (11:45)
[2019-06-05] MEDS ORDERED: FUROSEMIDE 40 MG TAB PO SCH (12:00)
[2019-06-05] MEDS ORDERED: metOLazone 5 MG TAB PO ONE (13:00)
[2019-06-05] MEDS ORDERED: FOSFOMYCIN TROMETHAMINE 3 GM POWDER PACKET (MONUROL) PO ONE (13:00)
[2019-06-05] MEDS: ACETAMINOPHEN TAB 650MG DOSE (2X325MG) PO PRN (13:15)
[2019-06-05] MEDS: IPRATROPIUM 0.5MG/ALBUTEROL 2.5MG INH SOL UD 3ML (DUONEB)(J7620) NEB SCH ×3 (13:27→19:26)
--- NOTE | 2019-06-05 13:43 | IPNPDOC ---
Date Seen The patient was seen on 06/05/19. Progress Note SUBJECTIVE: sob improved since yesterday, diuresing well on iv lasix. denies any chest pain, fever, or chills. no dysuria, urgency, frequency, flank pain. unable to ambulate due to sob, b/l knee pain 6/10 pain scale, and debility OBJECTIVE: OBJECTIVE/PHYSICAL EXAMINATION: Vital signs: pls see below Intake and output: reviewed Generally patient is morbidly obese with some slight conversational dyspnea, unable to complete a full sentence. Positive use of respiratory accessory muscles with mouth breathing. Positive jugular venous distention. No thyromegaly or cervical lymphadenopathy. Moist mucous membranes. Lungs: Diminished with bibasilar crackles. Heart: S1, S2, sinus rhythm. No murmurs, rubs or gallops. Abdomen: Obese, soft, nontender, nondistended. Positive erythema under the abdominal folds, under the breasts moist, warm, some skin breakdown of posterior lower extremities and upper thigh on the posterior aspect. Lower extremities: 3+ pitting edema to the sacrum with multiple open lesions on the thigh and the bilateral lower extremities. LABORATORY DATA: reviewed pls see below MRSA PCR is pending. Urinalysis: Cloudy urine, 3+ protein, 1+ blood, positive nitrite, 2+ leukocyte esterase, 102 WBC, 3+ bacteria. Urine culture : Ecoli neg ESBL two sets of blood cultures and MRSA screen ordered Knee x-ray 06/03/2019 bilateral, no obvious acute fracture. Left knee prior arthroplasty, chronic calcifications, some soft tissue swelling appreciated, no definite effusion, no obvious acute fracture. Right knee overlying soft tissue swelling is appreciated, effusion cannot be excluded, no obvious acute fracture. Chest x-ray 06/03/2019, interval removal of left internal jugular central line since 06/17/2018, slightly increased bibasilar infiltrate or atelectasis since prior study. ASSESSMENT AND PLAN: This is a 74-year-old female who lives at home, managed by her and a caregiver, usually walks with her walker, has a chair lift to the second floor and a garage entrance, not requiring any steps or stairs into the home, with morbid obesity, body mass index (BMI) of 81.5, probable obstructive sleep apnea and has not undergone any prior sleep study as outpatient, hypertension, hypothyroidism, history of recurrent urinary tract infections (UTIs) with extended spectrum beta-lactamase (ESBL) Escherichia (E) coli, history of perforated gastric ulcer, pyoderma gangrenosum, on chronic immunosuppressive therapy, chronic venous stasis ulcers, bilateral prostatic knee replacement, and kidney stones requiring stenting presents to the emergency room with a 4 day history of generalized weakness with limited mobility and fallen on her knees on the right side requiring several personnel to assist onto a stretcher. The patient was noted to have a pulse oximetry of 88%, when she sat up improved to 94%. She has no documented history of obstructive sleep apnea or congestive heart failure. She is admitted for urinary tract infection with history of ESBL E coli and is admitted for IV antibiotics and physical therapy. Chest x-ray on admission showed bibasilar infiltrated versus atelectasis. BNP was elevated with 2830 on admission. Acute hypoxic respiratory failure currently requiring oxygen of 2 liters, 98%, was 88% on room air, most likely secondary to untreated obstructive sleep apnea, obesity, hypoventilation syndrome and an element of cor pulmonale with right-sided congestive heart failure secondary to untreated obstructive sleep apnea. The patient will be placed on Lasix 20 mg intravenously every 6 hours with net negative goal of 1 liter daily, strict intake and output, daily weights, and monitor for electrolytes abnormalities such as low potassium and magnesium which will be supplemented as needed. 2-D echocardiogram has been ordered. The patient will be placed on 2 liter fluid restriction, daily weights, and strict intake and output. Urinary tract infection present at admission with history of ESBL E coli and resistance to Levaquin. The patient is currently on IV meropenem. due to risk of anaphylaxis with cephalosporins, despite negative esbl on urine cx: ecoli sensitive to ceftriaxone, with morbid obesity bmi 81 and risk of airway compromise if pt develops anaphylaxis with ceftriaxone, pt is kept on merem. Lost peripheral iv site 2 unsuccesful attempts at peripheral iv line. fosfomycin ordered, but 3rd attempt resulted in successful placement. pt continued on iv meropenem as previously ordered and iv lasix. acute decompensated diastolic congestive heart failure with preserved EF with acute exacerbation Previous echo was in 2018. The patient is being diuresed with Lasix to net negative 1 liter daily, 2 liter fluid restriction, salt restriction, strict intake and output, and daily weights. The patient will benefit from cardiopulmonary rehab as outpatient. Weight loss has been emphasized with the who does most of the cooking at home. Fish Agent has been consulted for weight loss regimen and calorie count. Probable obstructive sleep apnea. The patient has been kept on oxygen during naps as well as nightly. Will need a sleep study and continuous positive airway pressure (CPAP) machine at home as outpatient, referral to pulmonary critical care for management as outpatient. Hypertension. Currently controlled on atenolol 50 mg daily. In light of current diuresis, we will need adjust the patient's atenolol dose to hold for systolic pressure less than 140 to allow for enough blood pressure for diuresis. Hypothyroidism. The patient's TSH is elevated but free T4 is normal. Will keep at the same dose and recheck a thyroid profile. Bilateral knee pain secondary to recent fall. X-rays have been negative for fractures. Activity as tolerated for now. Avoid opioid narcotics due increased risk of hypercapnic respiratory failure, hypercarbia, altered mental status. Physical therapy (PT), occupational therapy (OT) have been consulted and acute rehabilitation unit (ARU) screen. History of perforated gastric ulcer. Currently on Prilosec 40 mg nightly. History of pyoderma gangrenosum and chronic lower extremity venous stasis ulcers. The patient's chronic immunosuppressant therapy Cellcept has been held in light of acute infection. Will resume once the patient's infection has resolved. History of kidney stones requiring stenting. The patient's creatinine is normal at this time. Will continue to monitor for now. Obesity, hypoventilation syndrome complicating care morbid obesity, BMI of 81.5 complicating care. on air mattress, turn and reposition if possible. PT/OT, credit balance specialist recommendations for weight loss. chronic Hypercapnia with chronic respiratory acidosis due to morbid obesity, obesity hypoventilation syndrome, and untreated qamar at risk of respiratory failure avoid sedatives, opioids at all costs. probable qamar continuous pulse ox o2 to keep sat>90% dvt prophylaxis: heparin sq. VS, I&O, 24H, Fishbone Vital Signs/I&O Vital Signs Date Time Temp Pulse Resp B/P (MAP) Pulse Ox O2 Delivery O2 Flow Rate FiO2 06/05/19 05:39 97.8 74 18 137/70 (92) 98 06/05/19 03:21 15.0 06/03/19 23:01 Nasal Cannula I&O- Last 24 Hours up to 6 AM 06/05/19 06:00 Intake Total 650 ml Output Total 1350 ml Balance -700 ml Laboratory Data 24H LABS Laboratory Tests 2 06/04/19 17:59: Anion Gap 3L, Glomerular Filtration Rate > 60.0, Blood Urea Nitrogen 16, Creatinine 0.63, Sodium Level 138, Potassium Level 4.1, Chloride Level 99, Carbon Dioxide Level 36H, Calcium Level 8.3L 06/05/19 06:57: Anion Gap 3L, Glomerular Filtration Rate > 60.0, Calcium Level 8.3L, Nucleated Red Blood Cells % (auto) 0.0, Estimated Mean Plasma Glucose 134H, Hemoglobin A1c 6.3, Triglycerides Level 115, LDL Cholesterol 53, Total Cholesterol 115, Non-HDL Cholesterol (LDL + VLDL) 76, Total HDL Cholesterol 39L, Cholesterol/HDL Ratio 2.948, Thyroid Stimulating Hormone (TSH) 3.470, Free Thyroxine Index 2.5, Thyroxine (T4) 6.8, Triiodothyronine (T3) Uptake 37 CBC/BMP Laboratory Tests 06/04/19 17:59 Calcium Level 8.3 L 06/05/19 06:57 Red Blood Count 4.30, Mean Corpuscular Volume 94.0, Mean Corpuscular Hemoglobin 26.3 L, Mean Corpuscular Hemoglobin Concent 28.0 L, Red Cell Distribution Width 16.4 H Microbiology Microbiology 06/03/19 Blood Culture - Preliminary, Resulted No growth after 24 hours . All specim... 06/03/19 Blood Culture - Preliminary, Resulted No growth after 24 hours . All specim... 06/04/19 Respiratory Virus Panel (PCR) ([facility]) - Final, Complete 06/03/19 MRSA Screen - Final, Complete 06/03/19 Urine Culture - Final, Complete Escherichia Coli REFUGIO GUERRERO MD Jun 05, 2019 13:29
[2019-06-05 18:46] LABS: BLOOD UREA NITROGEN 14 MG/DL (7-18); CALCIUM LEVEL 8.2 MG/DL (8.8-10.2); CARBON DIOXIDE LEVEL 39 MEQ/L (21-32); CHLORIDE LEVEL 96 MEQ/L (98-107); CREATININE FOR GFR 0.68 MG/DL (0.55-1.30); GLOMERULAR FILTRATION RATE > 60.0 (>39); GLUCOSE, FASTING 110 MG/DL (70-100); POTASSIUM SERUM 3.8 MEQ/L (3.5-5.1); SODIUM LEVEL 137 MEQ/L (136-145)
[2019-06-05] MEDS: OMEPRAZOLE 20 MG CAP PO SCH (21:01)
[2019-06-05] MEDS: ACETAMINOPH W/CODEINE #3 TAB UD PO PRN (22:54)
[2019-06-06] VITALS (24 sets, daily range): BP systolic 116–150; BP diastolic 55–68; O2SAT 86–98
[2019-06-06] MEDS: IPRATROPIUM 0.5MG/ALBUTEROL 2.5MG INH SOL UD 3ML (DUONEB)(J7620) NEB SCH ×6 (01:15→18:01)
[2019-06-06] MEDS: HEPARIN SOD (PORCINE) 5000 UNITS/ML VIAL SC SCH ×3 (01:43→16:04)
[2019-06-06] MEDS: FUROSEMIDE 20 MG/2 ML VIAL (J1940) IV SCH ×4 (03:44→20:49)
[2019-06-06] MEDS: MEROPENEM INJ 1 GM in APPROPRIATE DILUENT 1 EA IV SCH ×3 (05:13→22:17)
[2019-06-06] MEDS: LEVOTHYROXINE 88MCG TABLET (0.088 MG) PO SCH (05:13)
[2019-06-06 05:44] LABS: HEMATOCRIT 40.2 % (36.0-47.0); HEMOGLOBIN 11.2 g/dl (12.0-15.5); MEAN CORPUSCULAR HEMOGLOBIN 25.9 pg (27.0-33.0); MEAN CORPUSCULAR HGB CONC 27.9 g/dl (32.0-36.5); MEAN CORPUSCULAR VOLUME 93.1 fl (80.0-96.0); PLATELET COUNT, AUTOMATED 247 10^3/uL (150-450); RED BLOOD COUNT 4.32 10^6/uL (4.00-5.40); WHITE BLOOD COUNT 5.6 10^3/uL (4.0-10.0)
[2019-06-06 06:06] LABS: BLOOD UREA NITROGEN 13 MG/DL (7-18); CALCIUM LEVEL 8.1 MG/DL (8.8-10.2); CARBON DIOXIDE LEVEL 42 MEQ/L (21-32); CHLORIDE LEVEL 94 MEQ/L (98-107); CREATININE FOR GFR 0.67 MG/DL (0.55-1.30); GLOMERULAR FILTRATION RATE > 60.0 (>39); GLUCOSE, FASTING 112 MG/DL (70-100); POTASSIUM SERUM 3.9 MEQ/L (3.5-5.1); SODIUM LEVEL 139 MEQ/L (136-145)
--- NOTE | 2019-06-06 07:18 | ECHO ---
DATE OF PROCEDURE: 06/05/2019 AGE: 74 GENDER: Female HEIGHT: 64 inches WEIGHT: 474 pounds BODY SURFACE AREA: 2.82 meters squared INPATIENT: [address] [place] [address], Room 5151 REFERRING PHYSICIAN: Dr. Aby Neil INDICATION: Dyspnea. MEASUREMENTS: 2-D measurements: RV: 4.4 cm LV: 4.7 cm Septum: 1.4 cm Posterior wall: 1.4 cm Aortic root: 3.0 cm LA: 4.6 cm LVEF: 65% Doppler measurements: AV: 1.5 m/sec LVOT: 1.1 m/sec LVOT diameter: 1.9 cm MV-E: 90 A 95 E:A ratio 0.9 Early mitral deceleration time: 215 milliseconds E-Prime: 5.7 A-prime: 5 E:E prime ratio: 18 PCWP: 17.3 mmHg PV- 1.0 m/sec Pulmonary artery acceleration time: 81 milliseconds RVSP: 51-56 mmHg IVC: 2.8 cm COMMENTS: Normal sinus rhythm without intraventricular conduction disturbance. Extremely difficult study in light of the patient's body habitus, but some diagnostic useful information was still obtained. Moderately hypertrophied left ventricle with preserved systolic function. Moderately dilated left atrium with impairment of LV diastolic function with current estimated mean left atrial pressure was only mildly increased. Borderline to mildly increased right heart chambers with no wall motion and Doppler evidence of moderate to moderately severe pulmonary hypertension. Moderately dilated IVC with reduced respiratory collapse in keeping with that elevated central venous pressure. Aortic valvular sclerosis without stenosis or apparent insufficiency. Normal aortic root size. Mildly thickened mitral valvular apparatus with no more than trace mitral insufficiency. Unable to detect any intracardiac mass or pericardial effusion. MTDD
[2019-06-06] MEDS: NYSTATIN 100,000 UNITS/GM TOPICAL PWD 15 GM TOP SCH ×2 (09:00→20:50)
[2019-06-06] MEDS: LACTOBACILLUS ACIDOPHILUS CAP (BACID) PO SCH (10:05)
[2019-06-06] MEDS: ASPIRIN 81 MG ENTERIC TAB PO SCH (10:06)
[2019-06-06] MEDS: ACETAMINOPHEN TAB 650MG DOSE (2X325MG) PO SCH ×3 (10:06→20:49)
[2019-06-06] MEDS: ANALGESIC BALM CRM 120 GM TOP SCH ×4 (10:07→20:49)
[2019-06-06] MEDS: NYSTATIN CREAM 15 GM TOP SCH (10:08)
[2019-06-06] MEDS: MUPIROCIN 2% OINT 22 GM TUBE TOP SCH (10:09)
[2019-06-06] MEDS: SANTYL OINT 30GM TOP SCH (10:09)
[2019-06-06] MEDS ORDERED: SLF 3 ML SYR IV PRN (11:15)
[2019-06-06] MEDS: SLF 3 ML SYR IV SCH ×2 (13:37→22:17)
--- NOTE | 2019-06-06 14:10 | IPNPDOC ---
Date Seen The patient was seen on 06/06/19. Progress Note SUBJECTIVE: transferred to PCU yesterday due to worsening SOB despite net negative lasix diuresis. c/o not being able to sleep last night requesting her tylenol #3 and melatonin to be resumed with co2 level 71 chronic hypercarbia and respiratory acidosis pH 7.3. She says she has chronic b/l knee pain, back pain and has been taking tylenol #3 at home. sob is only slightly better despite being in negative balance. cough with white sputum without chills or fever. (+) PND, 30 degree elevation in bed with persistent hypoxia needing continuous oxygen. no chest pain pressure or tightness. c/o calorie restriction and fluid restriction. OBJECTIVE: OBJECTIVE/PHYSICAL EXAMINATION: Vital signs: pls see below Intake and output: reviewed Generally patient is morbidly obese with 4-5 word conversational dyspnea, unable to complete a full sentence. Positive use of respiratory accessory muscles with mouth breathing. Positive jugular venous distention. No thyromegaly or cervical lymphadenopathy. Moist mucous membranes. Lungs: Diminished with bibasilar crackles. Heart: S1, S2, sinus rhythm. No murmurs, rubs or gallops. Abdomen: Obese, soft, nontender, nondistended. Positive erythema under the abdominal folds, under the breasts moist, warm, some skin breakdown of posterior lower extremities and upper thigh on the posterior aspect. Lower extremities: 3+ pitting edema to the sacrum with multiple open lesions on the thigh and the bilateral lower extremities. LABORATORY DATA: reviewed pls see below MRSA PCR is pending. Urinalysis: Cloudy urine, 3+ protein, 1+ blood, positive nitrite, 2+ leukocyte esterase, 102 WBC, 3+ bacteria. Urine culture : Ecoli neg ESBL two sets of blood cultures and MRSA screen ordered Knee x-ray 06/03/2019 bilateral, no obvious acute fracture. Left knee prior arthroplasty, chronic calcifications, some soft tissue swelling appreciated, no definite effusion, no obvious acute fracture. Right knee overlying soft tissue swelling is appreciated, effusion cannot be excluded, no obvious acute fracture. Chest x-ray 06/03/2019, interval removal of left internal jugular central line since 06/17/2018, slightly increased bibasilar infiltrate or atelectasis since prior study. ASSESSMENT AND PLAN: This is a 74-year-old female who lives at home, managed by her and a caregiver, usually walks with her walker, has a chair lift to the second floor and a garage entrance, not requiring any steps or stairs into the home, with morbid obesity, body mass index (BMI) of 81.5, probable obstructive sleep apnea and has not undergone any prior sleep study as outpatient, hypertension, hypothyroidism, history of recurrent urinary tract infections (UTIs) with extended spectrum beta-lactamase (ESBL) Escherichia (E) coli, history of perforated gastric ulcer, pyoderma gangrenosum, on chronic immunosuppressive therapy, chronic venous stasis ulcers, bilateral prostatic knee replacement, and kidney stones requiring stenting presents to the emergency room with a 4 day history of generalized weakness with limited mobility and fallen on her knees on the right side requiring several personnel to assist onto a stretcher. The patient was noted to have a pulse oximetry of 88%, when she sat up improved to 94%. She has no documented history of obstructive sleep apnea or congestive heart failure. She is admitted for urinary tract infection with history of ESBL E coli and is admitted for IV antibiotics and physical therapy. Chest x-ray on admission showed bibasilar infiltrated versus atelectasis. BNP was elevated with 2830 on admission. Acute hypoxic respiratory failure currently requiring oxygen of 2 liters, 98%, was 88% on room air, most likely secondary to untreated obstructive sleep apnea, obesity, hypoventilation syndrome and an element of cor pulmonale with right-sided congestive heart failure secondary to untreated obstructive sleep apnea. continues to be decompensated despite scheduled Lasix iv every 6 hours with net negative goal of 1 liter daily, strict intake and output, daily weights, and monitor for electrolytes abnormalities such as low potassium and magnesium which will be supplemented as needed. 2-D echocardiogram reviewed. The patient will be placed on 2 liter fluid restriction, daily weights, and strict intake and output. Urinary tract infection present at admission with history of ESBL E coli and resistance to Levaquin. The patient is currently on IV meropenem. due to risk of anaphylaxis with cephalosporins, despite negative esbl on urine cx: ecoli sensitive to ceftriaxone, with morbid obesity bmi 81 and risk of airway compromise if pt develops anaphylaxis with ceftriaxone, pt is kept on merem. Lost peripheral iv site 2 unsuccesful attempts at peripheral iv line. fosfomycin ordered, but 3rd attempt resulted in successful placement. pt continued on iv meropenem as previously ordered and iv lasix. acute decompensated diastolic congestive heart failure with preserved EF with acute exacerbation Previous echo was in 2018. The patient is being diuresed with Lasix to net negative 1 liter daily, 2 liter fluid restriction, salt restriction, strict intake and output, and daily weights. The patient will benefit from cardiopulmonary rehab as outpatient. Weight loss has been emphasized with the who does most of the cooking at home. Director [employer] has been consulted for weight loss regimen and calorie count. Probable obstructive sleep apnea. The patient has been kept on oxygen during naps as well as nightly. Will need a sleep study and continuous positive airway pressure (CPAP) machine at home as outpatient, referral to pulmonary critical care for management as outpatient. Hypertension. Currently controlled on atenolol 50 mg daily. In light of current diuresis, we will need adjust the patient's atenolol dose to hold for systolic pressure less than 140 to allow for enough blood pressure for diuresis. Hypothyroidism. The patient's TSH is elevated but free T4 is normal. Will keep at the same dose and recheck a thyroid profile. Bilateral knee pain secondary to recent fall. X-rays have been negative for fractures. Activity as tolerated for now. Avoid opioid narcotics due increased risk of hypercapnic respiratory failure, hypercarbia, altered mental status. Physical therapy (PT), occupational therapy (OT) have been consulted and acute rehabilitation unit (ARU) screen. History of perforated gastric ulcer. Currently on Prilosec 40 mg nightly. History of pyoderma gangrenosum and chronic lower extremity venous stasis ulcers. The patient's chronic immunosuppressant therapy Cellcept has been held in light of acute infection. Will resume once the patient's infection has resolved. History of kidney stones requiring stenting. The patient's creatinine is normal at this time. Will continue to monitor for now. Obesity, hypoventilation syndrome complicating care morbid obesity, BMI of 81.5 complicating care. on air mattress, turn and reposition if possible. 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 chronic Hypercapnia with chronic respiratory acidosis due to morbid obesity, obesity hypoventilation syndrome, and untreated qamar at risk of respiratory failure avoid sedatives, opioids at all costs. chronic back pain due to risk of worsening respiratory acidosis and hypercapnia , now complicated by hypoxia due to chf exacerbation. will need pain mgt to help with nonopioid mgt and avoiding NSAIDs. trial of topical bengay, heating pad, and scheduled tylenol. dvt prophylaxis: heparin sq. VS, I&O, 24H, Fishbone Vital Signs/I&O Vital Signs Date Time Temp Pulse Resp B/P (MAP) Pulse Ox O2 Delivery O2 Flow Rate FiO2 06/06/19 12:00 98.0 87 18 150/68 (95) 97 15.0 06/06/19 11:00 Nasal Cannula 06/06/19 07:00 50 I&O- Last 24 Hours up to 6 AM 06/06/19 05:59 Intake Total 1440 ml Output Total 1300 ml Balance 140 ml Laboratory Data 24H LABS Laboratory Tests 2 06/05/19 18:15: Anion Gap 2L, Glomerular Filtration Rate > 60.0, Blood Urea Nitrogen 14, Creatinine 0.68, Sodium Level 137, Potassium Level 3.8, Chloride Level 96L, Carbon Dioxide Level 39H, Calcium Level 8.2L 06/06/19 05:23: Anion Gap 3L, Glomerular Filtration Rate > 60.0, Blood Urea Nitrogen 13, Creatinine 0.67, Sodium Level 139, Potassium Level 3.9, Chloride Level 94L, Carbon Dioxide Level 42H, Calcium Level 8.1L, Nucleated Red Blood Cells % (auto) 0.0 CBC/BMP Laboratory Tests 06/05/19 18:15 Calcium Level 8.2 L 06/06/19 05:23 Calcium Level 8.1 L, Red Blood Count 4.32, Mean Corpuscular Volume 93.1, Mean Corpuscular Hemoglobin 25.9 L, Mean Corpuscular Hemoglobin Concent 27.9 L, Red Cell Distribution Width 16.2 H Microbiology Microbiology 06/03/19 Blood Culture - Preliminary, Resulted No Growth after 48 hours. All Specime... 06/03/19 Blood Culture - Preliminary, Resulted No Growth after 48 hours. All Specime... 06/04/19 Respiratory Virus Panel (PCR) ([facility]) - Final, Complete 06/03/19 MRSA Screen - Final, Complete 06/03/19 Urine Culture - Final, Complete Escherichia Coli REFUGIO GUERRERO MD Jun 06, 2019 14:10
[2019-06-06 18:23] LABS: BLOOD UREA NITROGEN 11 MG/DL (7-18); CALCIUM LEVEL 7.8 MG/DL (8.8-10.2); CARBON DIOXIDE LEVEL 42 MEQ/L (21-32); CHLORIDE LEVEL 93 MEQ/L (98-107); CREATININE FOR GFR 0.63 MG/DL (0.55-1.30); GLOMERULAR FILTRATION RATE > 60.0 (>39); GLUCOSE, FASTING 114 MG/DL (70-100); POTASSIUM SERUM 3.7 MEQ/L (3.5-5.1); SODIUM LEVEL 138 MEQ/L (136-145)
[2019-06-06] MEDS: OMEPRAZOLE 20 MG CAP PO SCH (20:49)
[2019-06-06] MEDS: ACETAMINOPH W/CODEINE #3 TAB UD PO PRN (20:59)
[2019-06-07] VITALS (25 sets, daily range): BP systolic 106–127; BP diastolic 50–90; O2SAT 87–99
[2019-06-07 00:02] LABS: ABG pH (ARTERIAL) 7.283 UNITS (7.350-7.450)
[2019-06-07 00:04] LABS: ABG BASE EXCESS 12.6 (-2.0-2.0); ABG O2 SATURATION 98.1 % (95.0-99.0); ABG STANDARD HCO3 36.4 MEQ/L (22.0-26.0); ABG TOTAL CO2 45.8 MEQ/L (23.0-31.0)
[2019-06-07 00:07] LABS: ABG PARTIAL PRESSURE CO2 92.9 mmHg (35.0-45.0)
[2019-06-07 01:52] LABS: ABG BASE EXCESS 17.6 (-2.0-2.0); ABG HCO3 48.9 MEQ/L (22.0-26.0); ABG O2 SATURATION 99.4 % (95.0-99.0); ABG PARTIAL PRESSURE O2 161.9 mmHg (75.0-100.0); ABG STANDARD HCO3 41.7 MEQ/L (22.0-26.0); ABG TOTAL CO2 52.1 MEQ/L (23.0-31.0); ABG pH (ARTERIAL) 7.286 UNITS (7.350-7.450)
[2019-06-07] MEDS: HEPARIN SOD (PORCINE) 5000 UNITS/ML VIAL SC SCH ×3 (01:55→16:05)
[2019-06-07] MEDS: FUROSEMIDE 20 MG/2 ML VIAL (J1940) IV SCH ×4 (03:35→21:49)
[2019-06-07] MEDS: IPRATROPIUM 0.5MG/ALBUTEROL 2.5MG INH SOL UD 3ML (DUONEB)(J7620) NEB SCH ×7 (04:20→23:34)
[2019-06-07 05:17] LABS: ABG BASE EXCESS 18.2 (-2.0-2.0); ABG HCO3 49.3 MEQ/L (22.0-26.0); ABG O2 SATURATION 96.6 % (95.0-99.0); ABG PARTIAL PRESSURE O2 86.5 mmHg (75.0-100.0); ABG STANDARD HCO3 42.3 MEQ/L (22.0-26.0); ABG TOTAL CO2 52.4 MEQ/L (23.0-31.0); ABG pH (ARTERIAL) 7.304 UNITS (7.350-7.450)
[2019-06-07 05:20] LABS: ABG PARTIAL PRESSURE CO2 101.6 mmHg (35.0-45.0)
[2019-06-07 05:36] LABS: HEMOGLOBIN 11.5 g/dl (12.0-15.5); MEAN CORPUSCULAR HEMOGLOBIN 27.3 pg (27.0-33.0); MEAN CORPUSCULAR VOLUME 97.2 fl (80.0-96.0); PLATELET COUNT, AUTOMATED 222 10^3/uL (150-450); RED BLOOD COUNT 4.22 10^6/uL (4.00-5.40); WHITE BLOOD COUNT 5.8 10^3/uL (4.0-10.0)
[2019-06-07] MEDS: LEVOTHYROXINE 88MCG TABLET (0.088 MG) PO SCH (05:38)
[2019-06-07] MEDS: SLF 3 ML SYR IV SCH ×3 (05:38→22:04)
[2019-06-07] MEDS: MEROPENEM INJ 1 GM in APPROPRIATE DILUENT 1 EA IV SCH ×3 (05:38→21:49)
[2019-06-07 05:53] LABS: BLOOD UREA NITROGEN 12 MG/DL (7-18); CARBON DIOXIDE LEVEL 39 MEQ/L (21-32); CHLORIDE LEVEL 92 MEQ/L (98-107); CREATININE FOR GFR 0.56 MG/DL (0.55-1.30); GLOMERULAR FILTRATION RATE > 60.0 (>39); GLUCOSE, FASTING 109 MG/DL (70-100); POTASSIUM SERUM 3.8 MEQ/L (3.5-5.1); SODIUM LEVEL 134 MEQ/L (136-145)
[2019-06-07 08:14] LABS: ABG BASE EXCESS 18.8 (-2.0-2.0); ABG HCO3 49.7 MEQ/L (22.0-26.0); ABG O2 SATURATION 96.1 % (95.0-99.0); ABG PARTIAL PRESSURE O2 81.5 mmHg (75.0-100.0); ABG TOTAL CO2 52.8 MEQ/L (23.0-31.0); ABG pH (ARTERIAL) 7.313 UNITS (7.350-7.450)
[2019-06-07 08:16] LABS: ABG PARTIAL PRESSURE CO2 100.3 mmHg (35.0-45.0)
[2019-06-07] MEDS: LACTOBACILLUS ACIDOPHILUS CAP (BACID) PO SCH (08:54)
[2019-06-07] MEDS: ACETAMINOPHEN TAB 650MG DOSE (2X325MG) PO SCH ×4 (08:54→21:48)
[2019-06-07] MEDS: ANALGESIC BALM CRM 120 GM TOP SCH ×4 (08:55→21:51)
[2019-06-07] MEDS: NYSTATIN 100,000 UNITS/GM TOPICAL PWD 15 GM TOP SCH ×2 (08:56→21:51)
[2019-06-07] MEDS: NYSTATIN CREAM 15 GM TOP SCH (08:56)
--- NOTE | 2019-06-07 12:20 | REP ---
Portable chest x-ray: Single view. History: Shortness of breath. Comparison chest x-ray: June 04, 2019. Findings: EKG monitoring electrodes overlie the chest. Oxygen delivery tubing is seen. The lungs are somewhat hypoventilated unchanged. There is plate-like atelectasis in the right perihilar region and in the left base. No definite infiltrate. Heart size is prominent unchanged. Impression: Bibasilar plate-like atelectasis. No definite infiltrate. Prominent heart. Electronically Signed by Reginaldo Zee MD 06/07/2019 08:28 A
--- NOTE | 2019-06-07 13:17 | IPNPDOC ---
Date Seen The patient was seen on 06/07/19. Progress Note SUBJECTIVE: c/o bipap mask being too tight. transferred to icu due to increased co2 >100,but pt remains awake and conversant. no chest pain, but c/o sob despite bipap. improved pH to 7.3, managed by dermatology nurse practitioner. Pt confirmed full code and ok with intubation yesterday when we discussed risk of co2 retention and pt's repeated request for opioids with resuming her tylenol #3 codeine which she takes at home. She changed her mind and was ok with bengay for her knees and back and tylenol. After long discussion yesterday about comfort measures only if pt insisted on taking her opioids, pt agrees that she cannot be sedated with these pain meds due to risk of , and was ok with non-opioid meds. she diuresed well and remained net negative with lasix. repeat cxr improved, and no c/o pnd but remains at 45 degree elevation. OBJECTIVE: OBJECTIVE/PHYSICAL EXAMINATION: Vital signs: pls see below Intake and output: reviewed Generally bipap negative jugular venous distention. No thyromegaly or cervical lymphadenopathy. Lungs: distant breath sounds. Diminished with bibasilar crackles. Heart: distant heart soundsS1, S2, sinus rhythm. No murmurs, rubs or gallops. Abdomen: Obese, soft, nontender, nondistended. Positive erythema under the abdominal folds, under the breasts moist, warm, some skin breakdown of posterior lower extremities and upper thigh on the posterior aspect. Lower extremities: 3+ pitting edema to the sacrum with multiple open lesions on the thigh and the bilateral lower extremities. LABORATORY DATA: reviewed pls see below MRSA PCR is pending. Urinalysis: Cloudy urine, 3+ protein, 1+ blood, positive nitrite, 2+ leukocyte esterase, 102 WBC, 3+ bacteria. Urine culture : Ecoli neg ESBL two sets of blood cultures and MRSA screen ordered Knee x-ray 06/03/2019 bilateral, no obvious acute fracture. Left knee prior arthroplasty, chronic calcifications, some soft tissue swelling appreciated, no definite effusion, no obvious acute fracture. Right knee overlying soft tissue swelling is appreciated, effusion cannot be excluded, no obvious acute fracture. Chest x-ray 06/03/2019, interval removal of left internal jugular central line since 06/17/2018, slightly increased bibasilar infiltrate or atelectasis since prior study. ASSESSMENT AND PLAN: This is a 74-year-old female who lives at home, managed by her and a caregiver, usually walks with her walker, has a chair lift to the second floor and a garage entrance, not requiring any steps or stairs into the home, with morbid obesity, body mass index (BMI) of 81.5, probable obstructive sleep apnea and has not undergone any prior sleep study as outpatient, hypertension, hypothyroidism, history of recurrent urinary tract infections (UTIs) with extended spectrum beta-lactamase (ESBL) Escherichia (E) coli, history of perforated gastric ulcer, pyoderma gangrenosum, on chronic immunosuppressive therapy, chronic venous stasis ulcers, bilateral prostatic knee replacement, and kidney stones requiring stenting presents to the emergency room with a 4 day history of generalized weakness with limited mobility and fallen on her knees on the right side requiring several personnel to assist onto a stretcher. The patient was noted to have a pulse oximetry of 88%, when she sat up improved to 94%. She has no documented history of obstructive sleep apnea or congestive heart failure. She is admitted for urinary tract infection with history of ESBL E coli and is admitted for IV antibiotics and physical therapy. Chest x-ray on admission showed bibasilar infiltrates versus atelectasis. BNP was elevated with 2830 on admission. acute on chronic hypercapnic respiratory failure due to obesity hyperventilation syndrome, morbid obesity bmi 77.1, untreated WAN. worsened overnight with increased co2>100, transferred to ICU for bipap mgt. avoiding all sedatives, opioids. pulm Dr. Pizano consulted for bipap mgt. will need outpt sleep study, and most likely will need o2 at hospital discharge. Acute hypoxic respiratory failure currently requiring oxygen of 2 liters, 98%, was 88% on room air, most likely secondary to untreated obstructive sleep apnea, obesity, hypoventilation syndrome and an element of cor pulmonale with right-sided congestive heart failure secondary to untreated obstructive sleep apnea. continues to be decompensated despite scheduled Lasix iv every 6 hours with net negative goal of 1 liter daily, strict intake and output, daily weights, and monitor for electrolytes abnormalities such as low potassium and magnesium which will be supplemented as needed. 2-D echocardiogram reviewed. The patient will be placed on 2 liter fluid restriction, daily weights, and strict intake and output. Urinary tract infection present at admission with history of ESBL E coli and resistance to Levaquin. The patient is currently on IV meropenem. due to risk of anaphylaxis with cephalosporins, despite negative esbl on urine cx: ecoli sensitive to ceftriaxone, with morbid obesity bmi 81 and risk of airway compromise if pt develops anaphylaxis with ceftriaxone, pt is kept on merem. Lost peripheral iv site 2 unsuccesful attempts at peripheral iv line. fosfomycin ordered, but 3rd attempt resulted in successful placement. pt continued on iv meropenem as previously ordered and iv lasix. acute decompensated diastolic congestive heart failure with preserved EF with acute exacerbation Previous echo was in 2018. The patient is being diuresed with Lasix to net negative 1 liter daily, 2 liter fluid restriction, salt restriction, strict intake and output, and daily weights. The patient will benefit from cardiopulmonary rehab as outpatient. Weight loss has been emphasized with the who does most of the cooking at home. Professional Nursing Tutor has been consulted for weight loss regimen and calorie count. Probable obstructive sleep apnea. The patient has been kept on oxygen during naps as well as nightly. Will need a sleep study and continuous positive airway pressure (CPAP) machine at home as outpatient, referral to pulmonary critical care for management as outpatient. Hypertension. Currently controlled on atenolol 50 mg daily. In light of current diuresis, we will need adjust the patient's atenolol dose to hold for systolic pressure less than 140 to allow for enough blood pressure for diuresis. Hypothyroidism. The patient's TSH is elevated but free T4 is normal. Will keep at the same dose and recheck a thyroid profile. Bilateral knee pain secondary to recent fall. X-rays have been negative for fractures. Activity as tolerated for now. Avoid opioid narcotics due increased risk of hypercapnic respiratory failure, hypercarbia, altered mental status. Physical therapy (PT), occupational therapy (OT) have been consulted and acute rehabilitation unit (ARU) screen. History of perforated gastric ulcer. Currently on Prilosec 40 mg nightly. History of pyoderma gangrenosum and chronic lower extremity venous stasis ulcers. The patient's chronic immunosuppressant therapy Cellcept has been held in light of acute infection. Will resume once the patient's infection has resolved. History of kidney stones requiring stenting. The patient's creatinine is normal at this time. Will continue to monitor for now. Obesity, hypoventilation syndrome complicating care morbid obesity, BMI of 81.5 complicating care. on air mattress, turn and reposition if possible. 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 chronic back pain due to risk of worsening respiratory acidosis and hypercapnia , now complicated by hypoxia due to chf exacerbation. will need pain mgt to help with nonopioid mgt and avoiding NSAIDs. trial of topical bengay, heating pad, and scheduled tylenol. dvt prophylaxis: heparin sq. VS, I&O, 24H, Fishbone Vital Signs/I&O Vital Signs Date Time Temp Pulse Resp B/P (MAP) Pulse Ox O2 Delivery O2 Flow Rate FiO2 06/07/19 12:00 97.7 84 24 109/73 (85) 97 60 06/07/19 12:00 BIPAP/CPAP 06/07/19 06:00 30.0 I&O- Last 24 Hours up to 6 AM 06/07/19 06:00 Intake Total 2150 ml Output Total 4750 ml Balance -2600 ml Laboratory Data 24H LABS Laboratory Tests 2 06/06/19 17:53: Anion Gap 3L, Glomerular Filtration Rate > 60.0, Blood Urea Nitrogen 11, Creatinine 0.63, Sodium Level 138, Potassium Level 3.7, Chloride Level 93L, Carbon Dioxide Level 42H, Calcium Level 7.8L 06/06/19 23:50: Blood Gas Bicarbonate Standard 36.4H, Arterial Blood pH 7.283L, Arterial Blood Partial Pressure CO2 92.9*H, Arterial Blood Partial Pressure O2 104.0H, Arterial Blood Total CO2 45.8H, Arterial Blood HCO3 43.0H, Arterial Blood Base Excess 12.6H, Arterial Blood Oxygen Saturation 98.1 06/07/19 01:45: Blood Gas Bicarbonate Standard 41.7H, Arterial Blood pH 7.286L, Arterial Blood Partial Pressure CO2 105.0*H, Arterial Blood Partial Pressure O2 161.9H, Arterial Blood Total CO2 52.1H, Arterial Blood HCO3 48.9H, Arterial Blood Base Excess 17.6H, Arterial Blood Oxygen Saturation 99.4H 06/07/19 05:13: Blood Gas Bicarbonate Standard 42.3H, Arterial Blood pH 7.304L, Arterial Blood Partial Pressure CO2 101.6*H, Arterial Blood Partial Pressure O2 86.5, Arterial Blood Total CO2 52.4H, Arterial Blood HCO3 49.3H, Arterial Blood Base Excess 18.2H, Arterial Blood Oxygen Saturation 96.6 06/07/19 05:26: Nucleated Red Blood Cells % (auto) 0.0, Anion Gap 3L, Glomerular Filtration Rate > 60.0, Blood Urea Nitrogen 12, Creatinine 0.56, Sodium Level 134L, Potassium Level 3.8, Chloride Level 92L, Carbon Dioxide Level 39H, Calcium Level 8.0L 06/07/19 08:00: Blood Gas Bicarbonate Standard 43.0H, Arterial Blood pH 7.313L, Arterial Blood Partial Pressure CO2 100.3*H, Arterial Blood Partial Pressure O2 81.5, Arterial Blood Total CO2 52.8H, Arterial Blood HCO3 49.7H, Arterial Blood Base Excess 18.8H, Arterial Blood Oxygen Saturation 96.1 CBC/BMP Laboratory Tests 06/06/19 17:53 Calcium Level 7.8 L 06/07/19 05:26 Calcium Level 8.0 L, Red Blood Count 4.22, Mean Corpuscular Volume 97.2 H, Mean Corpuscular Hemoglobin 27.3, Mean Corpuscular Hemoglobin Concent 28.0 L, Red Cell Distribution Width 16.2 H Microbiology Microbiology 06/03/19 Blood Culture - Preliminary, Resulted No Growth after 72 hours. All specime... 06/03/19 Blood Culture - Preliminary, Resulted No Growth after 72 hours. All specime... 06/04/19 Respiratory Virus Panel (PCR) ([facility]) - Final, Complete 06/03/19 MRSA Screen - Final, Complete 06/03/19 Urine Culture - Final, Complete Escherichia Coli REFUGIO GUERRERO MD Jun 07, 2019 13:16
--- NOTE | 2019-06-07 14:25 | CR ---
DATE OF CONSULTATION: 06/07/2019 CHIEF COMPLAINT: Asked by Dr. Neil to evaluate Ms. Sales for acute and chronic respiratory failure. HISTORY OF PRESENT ILLNESS: Ms. Sales is a 74-year-old female who was admitted on 06/03/2019 with generalized weakness for 4 days prior to the admission. She has limited mobility at baseline; and in the admission note, she was described as moving from her chair to the kitchen and back without difficulty. At the time of admission, she could only walk from her chair to the bedside commode, which is about three feet away and had difficulty. Her legs gave out, and she fell to her knees, trying to go to the commode. Emergency medical services (EMS) was contacted. It took seven fire personnel to assist Ms. Sales to a stretcher. Her saturations were 88% on transport but up to 94% when she sat up in the emergency department (ED). She desaturated to 89% in the ED, and oxygen was administered. Evaluation at that time determined that she had a urinary tract infection (UTI). She had been transferred from the floor to the progressive care unit (PCU) on 06/06/2019 due to worsening shortness of breath despite net negative diuresis. As part of her evaluation during her admission, she had been found have a pCO2 in the 70s with a pH of 7.32. They had attempted to move her to the intensive care unit earlier, but Ms. Sales had declined. Earlier this morning, another arterial blood gas was done, which now showed a pCO2 of 105, and she was agreeable to moving to the intensive care unit, where she was started on noninvasive mechanical ventilation. Throughout this time, she has been alert, awake, and oriented. Today when I speak to her, she tells me that she is aware of all of this and knows what is going on. She is asking for breakfast. She denies any symptoms including shortness of breath, cough chest pain or pressure or PND. She states she understands why she cannot eat given that she is on noninvasive mechanical ventilator but is not happy with the decision. Her states that he has noted apneic episodes at home but does not believe she has ever been evaluated. He is not certain as to how she would accept bilevel therapy at home. He is not certain whether she would accept a tracheostomy. No other history is offered. ALLERGIES: PENICILLINS, TAPE, BEE VENOM PROTEIN, SULFAMETHOXAZOLE. I do not know what happens her these medications. MEDICATIONS ON ADMISSION: - acetaminophen with codeine one tablet by mouth twice a day as needed - Ventolin HFA two puffs every 4 hours as needed (no diagnosed lung disease) - aspirin 81 mg by mouth every 2 days - atenolol 50 mg pp every day - Santyl topical every 2 days on right leg - vitamin D 50,000 units by mouth every week - Nexium 40 mg by mouth nightly - furosemide 20 mg by mouth every day (However, she states that her electrolytes go "crazy," and she does not take the medication regularly.) - probiotic one tablet by mouth every day - Synthroid 175 mcg by mouth every day - loperamide 1 mg by mouth as needed - lutein/zeaxanthin one capsule by mouth every day - melatonin 15 mg by mouth nightly - multivitamin one by mouth every day - mycophenolate 1500 mg by mouth twice a day - nystatin powder topically twice a day - AZO 95 mg by mouth three times a day - Protopic once every 2 days legs at night PAST MEDICAL HISTORY: 1. Hypertension. 2. Hypothyroidism. 3. Extreme obesity. 4. History of UTI/pyelonephritis. 5. History of perforated gastric ulcer, status post repair. 6. Pyoderma, on chronic immunosuppressive therapy. 7. Chronic venous stasis ulcers. 8. Status post bilateral knee replacement surgery 9. History of kidney stones requiring stenting 10. Status post right shoulder repair. 11. History of paroxysmal atrial fibrillation. SOCIAL HISTORY: Ms. Sales reportedly does not smoke tobacco or drink alcohol. No illicit drug usage. FAMILY HISTORY: Her mother had coronary artery disease and hypertension. Father had a history of gastric ulcer and alcohol abuse. No known family history of lung disease. REVIEW OF SYSTEMS: Per history of present illness (HPI). The remainder of pertinent review of systems is negative. Review of systems is limited by the full face mask associated with noninvasive mechanical ventilation (NIMV). PHYSICAL EXAMINATION: Temperature 97 with a maximum temperature (Tmax) of 97.1, pulse 83, blood pressure 106/90 with a mean arterial pressure (MAP) of 95, SpO2 98% on an FIO2 of 0.6, body mass index (BMI) of 77.1. HEENT: Anicteric, PERRL. Nares and oropharynx not examined secondary to full face mask. Neck: Supple. Trachea is midline. Unable to assess jugular venous pressure (JVP) secondary to body habitus. Lymph: Without cervical or supraclavicular lymphadenopathy. Chest: Symmetric excursion, generalized diminished air entry. No wheeze, crackle, or rhonchi on tidal excursion and difficult examination secondary to body habitus. Normal I:E. Cardiovascular: Distant, regular rate and rhythm with a normal S1, S2, no murmur, rub, or gallop appreciated, and examination limited by body habitus. Abdomen: Mild distention. Skin feels suggestive of some edema. No splenomegaly or masses appreciated. Again, examination limited by body habitus. Extremities: Warm and well-perfused. Positive pedal nonpitting edema, palpable pedal pulses bilaterally. Without clubbing or cyanosis. LABORATORY DATA: Complete blood count (CBC) from this morning showed a hemoglobin 11.5, hematocrit 41, platelet count 222,000, white blood cell count 5800. Chemistry showed a sodium 134, potassium 3.8, chloride 92, bicarbonate 39, anion gap 3, BUN 12, creatinine 0.6, glucose 109, calcium 8.0. There is a hemoglobin A1c on 06/05/2019 which was 6.3. Urinalysis from 06/03/2019 was cloudy with a pH of 5, specific gravity 1.03, 3+ protein, 1+ blood, positive nitrite, 2+ leukocyte esterase, 102 WBCs, 11 RBCs, 3+ bacteria. Arterial blood gas from earlier today was 7.29/105/162 with a measured saturation of 99% and a base excess of 17.6. Her most recent arterial blood gas this morning was 7.31/100/82 with a measured saturation of 96% and a base excess of 18.8. Urine culture was positive for greater than 100,000 Escherichia (E.) coli. Blood cultures are negative, as was methicillin-resistant Staphylococcus aureus (MRSA) screen. Respiratory virus panel was also negative. I reviewed chest x-rays from 06/03/2019, 06/04/2019 , and 06/07/2019. All x- rays with what appears to be prominent cardiac silhouette and likely normal pulmonary vascular shadows. It is difficult to tell because of body habitus whether there is increased interstitial markings or that is secondary to technique. No consolidated regions. Today's x-ray shows no significant change, though it is a shallower inspiration. Possible atelectasis at the bases, though it does appear to be a more shallow inspiration. Intake and output (I and O): Yesterday's I and O were 2050 in and 4500 out, making her negative 2450. Thus far today, 470 in and 1550 out, making her negative 1080. Weight 203.8 kg. Height 162.6 cm. Echocardiogram from 06/04/2019 was a technically difficult study. It did show normal in sinus rhythm. Moderately hypertrophied left ventricle with preserved systolic function, moderately dilated left atrium with impairment of left ventricular diastolic function. Borderline mildly increased right heart chambers with no wall motion abnormalities and Doppler evidence of moderate to moderately severe pulmonary hypertension (RVSP 51-56 mmHg). IMPRESSION: 1.. Acute and chronic hypercapnic and hypoxemic respiratory failure. I suspect this is multifactorial with a significant portion of her difficulties related to obesity hypoventilation syndrome and pulmonary hypertension. I also am suspicious of underlying sleep apnea which at also likely contributes. She does not give a history of findings suggestive of an underlying pulmonary process. I suspect her UTI caused her decompensation. 2. Obesity hypoventilation syndrome. 3.. Probable obstructive sleep apnea, not diagnosed. 4. Pulmonary hypertension, moderate to moderately severe. 5. Diastolic dysfunction. 6. Extreme obesity. 7. Urinary tract infection. RECOMMENDATIONS: 1. At this time, continue noninvasive mechanical ventilation. 2. Would agree with gentle diuresis. Unfortunately, with the contraction alkalosis associated with that, can anticipate that her new baseline CO2 will continued to rise. 3.. Need to keep nothing by mouth as long as she is a FULL CODE. 4. I spoke to her regarding what her wishes would be should she not be weanable from the NIMV or should she fail that and progress toward intubation. I have discussed with him that both of these modalities are bridges to treatment and I am not certain what treatment is being done short of gentle diuresis and treatment of her UTI. 5.. I also discussed with him that more than likely as she went on to intubation, would need to consider tracheostomy and possibly chronic ventilation or at least nocturnal ventilation. He will have conversations with her later today to see what he perceives her wishes to be. We will also involve Ms. Sales in that conversation. PROGNOSIS: Overall prognosis is poor and is guarded for this admission. CRITICAL CARE TIME: 45 minutes not including procedure time. ITALOD
[2019-06-07] MEDS ORDERED: LIDOCAINE 1% MDV 20ML VIAL As Ordered ONE (16:39)
--- NOTE | 2019-06-07 18:11 | REP ---
MIDLINE INSERTION WITH ULTRASOUND GUIDANCE: REASON FOR EXAM: Poor IV access PROCEDURE: Midline catheter insertion under ultrasound guidance. This procedure was performed by ORA Morales, under the direct supervision of Dr. Zee. The risks and benefits of the procedure were explained to the patient and informed consent was obtained prior to the procedure both verbally and written. Directly prior to the start of the procedure, a formal timeout was completed in the procedure room. The left basilic vein was localized using ultrasound guidance. The skin was prepped and draped in a sterile fashion. 1% lidocaine was used as a local anesthetic. Using ultrasound guidance the the left basilic vein was cannulated and a 0.018 guidewire was inserted. The needle was removed and a 5.5 Mohawk dilator and a Peel-Away sheath was inserted over the guidewire. A 5.5 Mohawk dual lumen catheter was cut to the length of 10 cm. The dilator was removed and the catheter was inserted over the guidewire. The Peel-Away sheath was removed and the catheter was flushed with heparinized saline as per hospital protocol. The catheter was affixed to the skin and a sterile dressing was applied. The patient tolerated the procedure well and there were no immediate complications. Reviewed by ORA Irby 06/07/2019 05:41 P Electronically Signed by Reginaldo Zee MD 06/07/2019 06:03 P
[2019-06-07] MEDS: RAMELTEON 8 MG TAB (ROZEREM) PO SCH (21:00)
[2019-06-07] MEDS ORDERED: RAMELTEON 8 MG TAB (ROZEREM) PO ONE (21:19)
[2019-06-07] MEDS: OMEPRAZOLE 20 MG CAP PO SCH (21:48)
[2019-06-07] MEDS: ACETAMINOPH W/CODEINE #3 TAB UD PO PRN (22:07)
[2019-06-08] VITALS (21 sets, daily range): BP systolic 100–129; BP diastolic 50–90; O2SAT 82–93
[2019-06-08] MEDS: FUROSEMIDE 20 MG/2 ML VIAL (J1940) IV SCH ×4 (02:36→20:10)
[2019-06-08] MEDS: HEPARIN SOD (PORCINE) 5000 UNITS/ML VIAL SC SCH ×3 (02:36→16:14)
[2019-06-08] MEDS: IPRATROPIUM 0.5MG/ALBUTEROL 2.5MG INH SOL UD 3ML (DUONEB)(J7620) NEB SCH ×6 (03:39→23:54)
[2019-06-08 05:07] LABS: HEMATOCRIT 37.9 % (36.0-47.0); HEMOGLOBIN 10.7 g/dl (12.0-15.5); MEAN CORPUSCULAR HGB CONC 28.2 g/dl (32.0-36.5); PLATELET COUNT, AUTOMATED 204 10^3/uL (150-450); RED BLOOD COUNT 4.12 10^6/uL (4.00-5.40); WHITE BLOOD COUNT 4.7 10^3/uL (4.0-10.0)
[2019-06-08 05:54] LABS: BLOOD UREA NITROGEN 10 MG/DL (7-18); CALCIUM LEVEL 8.3 MG/DL (8.8-10.2); CARBON DIOXIDE LEVEL 47 MEQ/L (21-32); CHLORIDE LEVEL 86 MEQ/L (98-107); CREATININE FOR GFR 0.47 MG/DL (0.55-1.30); GLOMERULAR FILTRATION RATE > 60.0 (>39); GLUCOSE, FASTING 88 MG/DL (70-100); POTASSIUM SERUM 3.2 MEQ/L (3.5-5.1); SODIUM LEVEL 137 MEQ/L (136-145)
[2019-06-08] MEDS: LEVOTHYROXINE 88MCG TABLET (0.088 MG) PO SCH (06:17)
[2019-06-08] MEDS: SODIUM CHLORIDE 0.9% INJ 10 ML SYR IV SCH ×2 (06:18→17:52)
[2019-06-08] MEDS: MEROPENEM INJ 1 GM in APPROPRIATE DILUENT 1 EA IV SCH (06:18)
[2019-06-08] MEDS: SLF 3 ML SYR IV SCH ×3 (06:18→21:13)
[2019-06-08 07:11] LABS: ABG BASE EXCESS 18.7 (-2.0-2.0); ABG HCO3 45.5 MEQ/L (22.0-26.0); ABG O2 SATURATION 92.9 % (95.0-99.0); ABG PARTIAL PRESSURE O2 60.9 mmHg (75.0-100.0); ABG STANDARD HCO3 42.7 MEQ/L (22.0-26.0); ABG TOTAL CO2 47.5 MEQ/L (23.0-31.0); ABG pH (ARTERIAL) 7.467 UNITS (7.350-7.450)
[2019-06-08 07:14] LABS: ABG PARTIAL PRESSURE CO2 64.4 mmHg (35.0-45.0)
[2019-06-08] MEDS: LACTOBACILLUS ACIDOPHILUS CAP (BACID) PO SCH (08:57)
[2019-06-08] MEDS: ASPIRIN 81 MG ENTERIC TAB PO SCH (08:57)
[2019-06-08] MEDS: ACETAMINOPHEN TAB 650MG DOSE (2X325MG) PO SCH ×3 (08:58→20:11)
[2019-06-08] MEDS: ANALGESIC BALM CRM 120 GM TOP SCH ×4 (08:59→20:11)
[2019-06-08] MEDS: NYSTATIN CREAM 15 GM TOP SCH (09:00)
[2019-06-08] MEDS: MUPIROCIN 2% OINT 22 GM TUBE TOP SCH (09:00)
[2019-06-08] MEDS: NYSTATIN 100,000 UNITS/GM TOPICAL PWD 15 GM TOP SCH ×2 (09:00→20:10)
--- NOTE | 2019-06-08 10:45 | IPN ---
DATE OF SERVICE: 06/08/2019 NOTE: Ms. Sales was moved to the intensive care unit (ICU) yesterday secondary to acute and chronic respiratory failure and placed on noninvasive mechanical ventilation (NIMV). She did well overnight with her acute hypercapnia resolving. Now that she has the NIMV mask removed, she reports that she is feeling better. She denies any chest pain or pressure. She notes one time last evening when she felt a little nauseous but did not have emesis. She has a dry cough. She tells me that she has her legs wrapped at home. She does not feel short of breath at rest. She also offers no other concerns. OBJECTIVE/PHYSICAL EXAMINATION: Vital signs: Temperature 99.2 which is her maximum temperature (Tmax), pulse 81, respiratory rate in the 20s, blood pressure 100/50 with a mean arterial pressure (MAP) of 67, SPO2 93% on a bilevel of 22/12 with an FIO2 of 0.3. Now on 2 liters. Her saturations range from 82% to 96%, depending upon whether or not she is talking and taking deep breaths. HEENT: Anicteric. Nares: Patent bilaterally, moisture mucosa, slight septal deviation to the right. Oropharynx clear. No lesions. Fair dentition. Mallampati 4. Neck:: Unable to assess jugular venous pressure (JVP) secondary to body habitus. Trachea is midline. Lungs: Symmetric excursion, generalized diminished air entry. No wheeze, rhonchi, or crackle on tidal excursion. Normal I:E. No accessory muscle usage or retractions. Cardiovascular: Distant, regular rate and rhythm, normal S1, S2. No murmur, rub, or gallop appreciated, though difficult examination. Abdomen: Abdominal wall skin feels firm, nontender, unable to effectively appreciate any organomegaly secondary to body habitus. Extremities: Wrapped. Palpable pedal pulses. Nonpitting edema. No cyanosis or clubbing. There are some hand changes related to arthritis. LABORATORY DATA: Complete blood count (CBC) showed a hemoglobin of 10.7, hematocrit 37.9, platelet count 204,000, white blood cell count 4700. Chemistry showed sodium 137, potassium 3.2, chloride 86, bicarbonate 47, anion gap 4, BUN 10, creatinine 0.5, calcium 8.3, glucose 88. Arterial blood gas on NIMV with an inspiratory positive airway pressure (IPAP) of 22 and expiratory positive airway pressure (EPAP) of 12 was 7.47/65/61 with a measured saturation of 93%. Yesterday's intake and output (I and O) was 770 in and 4350 out, making her negative 3580. Thus far today, it is listed as 0 intake and 1450 out, making her negative 1450. Weight is listed at 200.5 kg. ASSESSMENT: 1. Acute and chronic respiratory failure. The acute portion is felt secondary to her multiple underlying difficulties or decompensated by a urinary tract infection (UTI). Her chronic difficulties are felt in large part secondary to obesity hypoventilation and likely obstructive sleep apnea. She also has pulmonary hypertension and diastolic dysfunction. What argues against her having significant hypoxemia chronically is that she is not polycythemic. 2. Obesity hypoventilation syndrome. 3. Probable obstructive sleep apnea. 4. Pulmonary hypertension, moderate to mildly severe. 5. Diastolic dysfunction. 6. Extreme obesity. 7. Hypothyroidism, most recent TSH normal. 8. Urinary tract infection secondary to Escherichia (E.) coli. RECOMMENDATIONS: 1. At this time, will change her to a bilevel device with naps and nocturnally. We will also change the excursion to 6 setting the IPAP 6 over the EPAP. 2. Anticipate that she will require 1-2 liters nasal cannula oxygen continuously secondary to obesity hypoventilation. 3. Will start clear liquids. Until we are certain that she is out of her acute decompensation, prefer not to have solid intake, as she is a FULL CODE. 4. Agree with continued gentle diuresis. However, it needs to be remembered that she has pulmonary hypertension, so cannot be too aggressive; and also, as her contraction alkalosis increases, so will her baseline pCO2. 5. At this point, I feel that this was likely acute decompensation of the multiple problems listed above, which are likely close to end stages. It appears the decompensation was a simple UTI. 6. I spent considerable time discussing obesity hypoventilation, sleep apnea, and pulmonary hypertension with Ms. Sales and her . She is agreeable to pursuing polysomnogram and long-term treatment with pressure therapy if she does have obstructive sleep apnea. It was explained to them that this needs to be an outpatient test and that her will most likely need to accompany her because she needs help with activities, such as going to the bathroom. We will obtain an [place] score and place it in the chart, as well as a obtain a neck circumference measurement today. It was also explained to Ms. Sales and her that even with a study done expediently after discharge, it will take some time to receive the device secondary to preauthorization before she can receive a continuous positive airway pressure (CPAP) / bilevel device. 7. Her asked to meet with a dietitian so that he and Ms. Sales could be given an appropriate calorie goal, as well as appropriate selections of the type of foods that she should eat. TOTAL TIME: Approximately 35 minutes. ADDENDUM: Note: [place] score obtained today was 16. A copy of the [place] itself was placed in her chart to be scanned in her record upon discharge. Her neck circumference is 61.5 cm (24.2 inches). Addendum dictated: 06/08/2019 1100 Addendum transcribed: 06/08/2019 1105 ramya RAMOS
--- NOTE | 2019-06-08 10:48 | IPNPDOC ---
Text Note Date of Service The patient was seen on 06/08/19. NOTE SUBJECTIVE: Says did not have a good night . Has not been able to sleep because of the BIPAP. Complains of knee pains and leg pains. No fever or chills, no chest pain or SOB. Having bowel movements. PHYSICAL EXAMINATION: Vital signs: pls see below GENERAL: Awake alert oriented x 3, on BIPAP, laying comfortably no acute distress, morbidly obese. HEENT: normocephalic, atraumatic, moist mucous membranes, anicteric eyes. NECK: negative jugular venous distention. No thyromegaly or cervical lymphadenopathy. Lungs: distant breath sounds. Diminished with bibasilar crackles. Heart: distant heart sounds S1, S2 normal, sinus rhythm. No murmurs, rubs or gallops. Abdomen: Hugely Obese, soft, nontender, nondistended. Bowel sounds present. SKIN: Positive erythema under the abdominal folds, under the breasts moist, warm, some skin breakdown of posterior lower extremities and upper thigh on the posterior aspect. Lower extremities: 3+ pitting edema to the sacrum with multiple open lesions on the thigh and the bilateral lower extremities. Chronic stasis dermatitis, thick dry skin with ecxematous changes and stasis ulcers. LABORATORY DATA: reviewed pls see below Urine culture : Ecoli neg ESBL Knee x-ray 06/03/2019 bilateral, no obvious acute fracture. Left knee prior arthroplasty, chronic calcifications, some soft tissue swelling appreciated, no definite effusion, no obvious acute fracture. Right knee overlying soft tissue swelling is appreciated, effusion cannot be excluded, no obvious acute fracture. ASSESSMENT AND PLAN: This is a 74-year-old female who lives at home, managed by her and a caregiver, usually walks with her walker, has a chair lift to the second floor and a garage entrance, not requiring any steps or stairs into the home, with morbid obesity, body mass index (BMI) of 81.5, probable obstructive sleep apnea and has not undergone any prior sleep study as outpatient, hypertension, hypothyroidism, history of recurrent urinary tract infections (UTIs) with extended spectrum beta-lactamase (ESBL) Escherichia (E) coli, history of perforated gastric ulcer, pyoderma gangrenosum, on chronic immunosuppressive therapy, chronic venous stasis ulcers, bilateral prostatic knee replacement, and kidney stones requiring stenting presents to the emergency room with a 4 day history of generalized weakness with limited mobility and fallen on her knees on the right side requiring several personnel to assist onto a stretcher. The patient was noted to have a pulse oximetry of 88%, when she sat up improved to 94%. She has no documented history of obstructive sleep apnea or congestive heart failure. She is admitted for urinary tract infection with history of ESBL E coli and is admitted for IV antibiotics and physical therapy. Chest x-ray on admission showed bibasilar infiltrates versus atelectasis. BNP was elevated with 2830 on admission. Acute on chronic hypercapnic respiratory failure due to obesity hyperventilation syndrome, morbid obesity bmi 77.1, untreated WAN, corpulmonale On BIPAP avoiding all sedatives, opioids. pulm Dr. Pizano consulted for bipap mgt. will need outpt sleep study, and most likely will need o2 at hospital discharge. Acute hypoxic respiratory failure secondary to acute diastolic CHF and acute on chronic right heart failure due to untreated obstructive sleep apnea, obesity, hypoventilation syndrome 2-D echocardiogram reviewed. The Continue IV lasix , 2 liter fluid restriction, daily weights, and strict intake and output. oxygen supplementation Urinary tract infection present at admission Ecoli on IV meropenem due to risk of anaphylaxis with cephalosporins, despite negative esbl on urine Acute decompensated diastolic congestive heart failure with preserved EF Continue IV lasix, fluid restriction 2 l , I/O Probable obstructive sleep apnea. will need sleep study as outpatient Hypertension. atenolol, lasix Hypothyroidism. synthroid home dose. Bilateral knee pain secondary to recent fall. X-rays have been negative for fractures. Activity as tolerated for now. Avoid opioid narcotics due increased risk of hypercapnic respiratory failure, hypercarbia, altered mental status. Physical therapy (PT), occupational therapy (OT) have been consulted and acute rehabilitation unit (ARU) screen. History of perforated gastric ulcer. Prilosec 40 mg nightly. History of pyoderma gangrenosum and chronic lower extremity venous stasis ulcers. The patient's chronic immunosuppressant therapy Cellcept has been held in light of acute infection. Will resume once the patient's infection has resolved. History of kidney stones requiring stenting. no issues at present. Morbid obesity, BMI of 77.1 complicating care. on air mattress, turn and reposition if possible. PT/OT, crystal attacher recommendations for weight loss. Chronic back pain due to risk of worsening respiratory acidosis and hypercapnia , now complicated by hypoxia due to chf exacerbation. will need pain mgt to help with nonopioid mgt and avoiding NSAIDs. trial of topical bengay, heating pad, and scheduled tylenol. dvt prophylaxis: heparin sq. VS,Fishbone, I+O VS, Fishbone, I+O Laboratory Tests 06/08/19 04:47 Red Blood Count 4.12, Mean Corpuscular Volume 92.0, Mean Corpuscular Hemoglobin 26.0 L, Mean Corpuscular Hemoglobin Concent 28.2 L, Red Cell Distribution Width 16.4 H, Calcium Level 8.3 L Vital Signs Date Time Temp Pulse Resp B/P (MAP) Pulse Ox O2 Delivery O2 Flow Rate FiO2 06/08/19 04:00 99.2 109 29 114/90 (98) 91 30 06/07/19 18:00 NIPPV (BIPAP/CPAP) 06/07/19 06:00 30.0 I&O- Last 24 Hours up to 6 AM 06/08/19 06:00 Intake Total 470 ml Output Total 4200 ml Balance -3730 ml MIRACLE LOBO MD Jun 08, 2019 06:14
[2019-06-08] MEDS ORDERED: POTASSIUM CHLORIDE 10 MEQ SR TABLET PO ONE ×2 (11:30→17:00)
[2019-06-08] MEDS: CEFDINIR 300 MG CAP (OMNICEF) PO SCH ×2 (13:15→20:09)
[2019-06-08] MEDS: SODIUM CHLORIDE 0.9% INJ 10 ML SYR IV PRN (16:16)
[2019-06-08] MEDS: OMEPRAZOLE 20 MG CAP PO SCH (20:08)
[2019-06-08] MEDS: RAMELTEON 8 MG TAB (ROZEREM) PO SCH (20:09)
[2019-06-08] MEDS: ACETAMINOPH W/CODEINE #3 TAB UD PO PRN (20:10)
[2019-06-09] VITALS (7 sets, daily range): BP systolic 117–125; BP diastolic 56–63; O2SAT 92
[2019-06-09] MEDS: HEPARIN SOD (PORCINE) 5000 UNITS/ML VIAL SC SCH ×3 (03:15→16:03)
[2019-06-09] MEDS: FUROSEMIDE 20 MG/2 ML VIAL (J1940) IV SCH ×3 (03:15→16:02)
[2019-06-09] MEDS: IPRATROPIUM 0.5MG/ALBUTEROL 2.5MG INH SOL UD 3ML (DUONEB)(J7620) NEB SCH ×5 (03:59→18:11)
[2019-06-09 04:58] LABS: HEMATOCRIT 40.2 % (36.0-47.0); HEMOGLOBIN 11.7 g/dl (12.0-15.5); MEAN CORPUSCULAR HEMOGLOBIN 26.7 pg (27.0-33.0); MEAN CORPUSCULAR HGB CONC 29.1 g/dl (32.0-36.5); MEAN CORPUSCULAR VOLUME 91.6 fl (80.0-96.0); PLATELET COUNT, AUTOMATED 208 10^3/uL (150-450); RED BLOOD COUNT 4.39 10^6/uL (4.00-5.40); WHITE BLOOD COUNT 4.7 10^3/uL (4.0-10.0)
[2019-06-09 05:32] LABS: BLOOD UREA NITROGEN 10 MG/DL (7-18); CALCIUM LEVEL 8.2 MG/DL (8.8-10.2); CARBON DIOXIDE LEVEL 45 MEQ/L (21-32); CHLORIDE LEVEL 84 MEQ/L (98-107); GLOMERULAR FILTRATION RATE > 60.0 (>39); GLUCOSE, FASTING 93 MG/DL (70-100); POTASSIUM SERUM 3.2 MEQ/L (3.5-5.1); SODIUM LEVEL 137 MEQ/L (136-145)
[2019-06-09] MEDS ORDERED: POTASSIUM CHLORIDE 10 MEQ SR TABLET PO ONE (06:15)
[2019-06-09] MEDS: LEVOTHYROXINE 88MCG TABLET (0.088 MG) PO SCH (06:43)
[2019-06-09] MEDS: SLF 3 ML SYR IV SCH ×3 (06:44→22:48)
[2019-06-09] MEDS: SODIUM CHLORIDE 0.9% INJ 10 ML SYR IV SCH ×2 (06:44→17:44)
[2019-06-09] MEDS ORDERED: BISACODYL 5 MG TAB PO PRN (07:45)
[2019-06-09] MEDS: SENOKOT S TAB PO SCH ×3 (08:18→22:40)
[2019-06-09] MEDS: LACTOBACILLUS ACIDOPHILUS CAP (BACID) PO SCH (08:18)
[2019-06-09] MEDS: CEFDINIR 300 MG CAP (OMNICEF) PO SCH ×2 (08:18→22:56)
[2019-06-09] MEDS: ACETAMINOPHEN TAB 650MG DOSE (2X325MG) PO SCH ×3 (08:19→22:41)
[2019-06-09] MEDS: SANTYL OINT 30GM TOP SCH (08:20)
[2019-06-09] MEDS: POTASSIUM CHLORIDE 10 MEQ SR TABLET PO SCH ×2 (08:20→22:42)
[2019-06-09] MEDS: MUPIROCIN 2% OINT 22 GM TUBE TOP SCH (08:20)
[2019-06-09] MEDS: ANALGESIC BALM CRM 120 GM TOP SCH ×4 (08:21→22:57)
[2019-06-09] MEDS: NYSTATIN 100,000 UNITS/GM TOPICAL PWD 15 GM TOP SCH ×2 (08:21→22:56)
[2019-06-09] MEDS: NYSTATIN CREAM 15 GM TOP SCH (08:22)
[2019-06-09 08:24] LABS: ABG BASE EXCESS 21.1 (-2.0-2.0); ABG HCO3 46.4 MEQ/L (22.0-26.0); ABG O2 SATURATION 90.1 % (95.0-99.0); ABG PARTIAL PRESSURE CO2 53.9 mmHg (35.0-45.0); ABG PARTIAL PRESSURE O2 53.4 mmHg (75.0-100.0); ABG STANDARD HCO3 45.3 MEQ/L (22.0-26.0); ABG TOTAL CO2 48.1 MEQ/L (23.0-31.0); ABG pH (ARTERIAL) 7.553 UNITS (7.350-7.450)
[2019-06-09] MEDS ORDERED: BISACODYL 10 MG SUPP PR PRN (09:00)
[2019-06-09] MEDS ORDERED: POTASSIUM CHLORIDE 10 MEQ SR TABLET PO SCH (09:00)
--- NOTE | 2019-06-09 11:36 | IPNPDOC ---
Text Note Date of Service The patient was seen on 06/09/19. NOTE SUBJECTIVE: Says did have a better night . tolerated the table top without any issues, massive diuresis over the past 3 to 4 days with drop in weight by 9 kgs . Yesterday had a negative balance of greater than 4 liters. No fever or chills, legs not as sore as before, swelling is improving. No chest pain or SOB. No abdominal pain , nausea or vomting. has not had a good bowel movement in last 3 days. PHYSICAL EXAMINATION: Vital signs: pls see below GENERAL: Awake alert oriented x 3, on BIPAP, laying comfortably no acute distress, morbidly obese. HEENT: normocephalic, atraumatic, moist mucous membranes, anicteric eyes. NECK: negative jugular venous distention. No thyromegaly or cervical lymphadenopathy. Lungs: distant breath sounds. Diminished with bibasilar crackles. Heart: distant heart sounds S1, S2 normal, sinus rhythm. No murmurs, rubs or gallops. Abdomen: Hugely Obese, soft, nontender, nondistended. Bowel sounds present. Back: some erythema but no skin breakdown. SKIN: Positive erythema under the abdominal folds, under the breasts moist, warm, some skin breakdown of posterior lower extremities and upper thigh on the posterior aspect. Lower extremities: 3+ pitting edema to the sacrum with multiple open lesions on the thigh and the bilateral lower extremities. Chronic stasis dermatitis, thick dry skin with ecxematous changes and stasis ulcers. LABORATORY DATA: reviewed pls see below Urine culture : Ecoli neg ESBL Knee x-ray 06/03/2019 bilateral, no obvious acute fracture. Left knee prior arthroplasty, chronic calcifications, some soft tissue swelling appreciated, no definite effusion, no obvious acute fracture. Right knee overlying soft tissue swelling is appreciated, effusion cannot be excluded, no obvious acute fracture. ASSESSMENT AND PLAN: This is a 74-year-old female who lives at home, managed by her and a caregiver, usually walks with her walker, has a chair lift to the second floor and a garage entrance, not requiring any steps or stairs into the home, with morbid obesity, body mass index (BMI) of 81.5, probable obstructive sleep apnea and has not undergone any prior sleep study as outpatient, hypertension, hypothyroidism, history of recurrent urinary tract infections (UTIs) with extended spectrum beta-lactamase (ESBL) Escherichia (E) coli, history of perforated gastric ulcer, pyoderma gangrenosum, on chronic immunosuppressive therapy, chronic venous stasis ulcers, bilateral prostatic knee replacement, and kidney stones requiring stenting presents to the emergency room with a 4 day history of generalized weakness with limited mobility and fallen on her knees on the right side requiring several personnel to assist onto a stretcher. The patient was noted to have a pulse oximetry of 88%, when she sat up improved to 94%. She has no documented history of obstructive sleep apnea or congestive heart failure. She is admitted for urinary tract infection with history of ESBL E coli and is admitted for IV antibiotics and physical therapy. Chest x-ray on admission showed bibasilar infiltrates versus atelectasis. BNP was elevated with 2830 on admission. Acute on chronic hypercapnic respiratory failure due to obesity hyperventilation syndrome, morbid obesity bmi 74.3, untreated WAN, corpu lmonale On Table top Bilevel ventilation with 20/14 support with 2 liters oxygen bleed in. avoiding all sedatives, opioids. pulm Dr. Pizano consulted will need outpt sleep study. will be given home oxygen o2 at hospital discharge. Acute hypoxic respiratory failure secondary to acute diastolic CHF and acute on chronic right heart failure due to untreated obstructive sleep apnea, obesity, hypoventilation syndrome 2-D echocardiogram reviewed. The Continue IV lasix , 2 liter fluid restriction, daily weights, and strict intake and output. oxygen supplementation Urinary tract infection present at admission Ecoli pansensitive finish course of cefdinir. Acute decompensated diastolic congestive heart failure with preserved EF Continue IV lasix, fluid restriction 2 l , I/O will reduce dose as becoming alkalotic. Probable obstructive sleep apnea. will need sleep study as outpatient which is going to be scheduled as early as possible probably within 1 week of discharge. Hypertension. atenolol, lasix Hypothyroidism. synthroid home dose. Bilateral knee pain secondary to recent fall. X-rays have been negative for fractures. Activity as tolerated for now. Avoid opioid narcotics due increased risk of hypercapnic respiratory failure, hypercarbia, altered mental status. Physical therapy (PT), occupational therapy (OT) have been consulted History of perforated gastric ulcer. Prilosec 40 mg nightly. History of pyoderma gangrenosum and chronic lower extremity venous stasis ulcers. The patient's chronic immunosuppressant therapy Cellcept has been held in light of acute infection. Will resume once the patient's infection has resolved. History of kidney stones requiring stenting. no issues at present. Morbid obesity, BMI of 77.1 complicating care. on air mattress, turn and reposition if possible. PT/OT, hose coupling joiner recommendations for weight loss. Chronic back pain due to risk of worsening respiratory acidosis and hypercapnia , now complicated by hypoxia due to chf exacerbation. will need pain mgt to help with nonopioid mgt and avoiding NSAIDs. trial of topical bengay, heating pad, and scheduled tylenol. dvt prophylaxis: heparin sq. VS,Fishbone, I+O VS, Fishbone, I+O Laboratory Tests 06/09/19 04:47 Red Blood Count 4.39, Mean Corpuscular Volume 91.6, Mean Corpuscular Hemoglobin 26.7 L, Mean Corpuscular Hemoglobin Concent 29.1 L, Red Cell Distribution Width 16.7 H, Calcium Level 8.2 L Vital Signs Date Time Temp Pulse Resp B/P (MAP) Pulse Ox O2 Delivery O2 Flow Rate FiO2 06/09/19 07:26 2.0 06/09/19 04:00 98.3 88 22 119/57 (77) 86 06/08/19 18:00 Nasal Cannula 06/08/19 08:01 30 I&O- Last 24 Hours up to 6 AM 06/09/19 05:59 Intake Total 1520 ml Output Total 5150 ml Balance -3630 ml MIRACLE LOBO MD Jun 09, 2019 11:36
--- NOTE | 2019-06-09 11:43 | IPN ---
DATE OF SERVICE: 06/09/2019 NOTE: Ms. Sales did very well overnight. Even yesterday afternoon when she felt sleepy and was going to take a nap, she requested the bilevel device. She did wear it last night. She admits there are times that she felt she was fighting it, but she made certain that she kept it in place. This morning, she feels well rested, better than her typical night. No chest pain or pressure. No cough. No nausea or emesis. No abdominal pain. No shortness of breath. No new symptoms. She is concerned regarding her physical ability to do activities. She is also concerned because her has a scheduled eye appointment on Friday. OBJECTIVE: PHYSICAL EXAMINATION: General: Ms. Sales is lying in bed in no acute distress. She can complete full sentences. She was able to take the bilevel mask off but did have some difficulties putting it back on. Vital signs: Temperature 98.3, pulse 88, respiratory rate 22, blood pressure 119/57, with a mean arterial pressure (MAP) of 77. SPO2 86-92 on an FIO2 of 0.4. HEENT: Anicteric. Nares: Patent bilaterally. Oropharynx clear. No lesions. Moist mucosa. Mallampati 4. Fair dentition. Neck: Supple. Unable to appreciate jugular venous pressure (JVP) secondary to body habitus. Trachea is midline. Lymph: Without cervical or supraclavicular lymphadenopathy. Lungs: Symmetric excursion, good air entry, no wheeze, rhonchi, or crackle on tidal excursion. Normal I:D. No accessory muscle usage or retractions. Cardiovascular: Distant, regular rate and rhythm, no murmur, rub, or gallop appreciated. Abdomen: Abdominal wall feels less firm than it did yesterday. No organomegaly can be appreciated secondary to body habitus. Extremities: Lower extremities are wrapped but still with palpable pedal pulses. No pitting edema. Palpable radial pulses. No cyanosis or clubbing. Neurologic: Alert, awake, oriented times three. LABORATORY DATA: Complete blood count (CBC) from this morning showed a hemoglobin 11.7, hematocrit 40.2, platelet count 208,000, and white blood cell count 4700. Chemistry shows sodium 137, potassium 3.2, chloride 84, bicarbonate 45, anion gap 8, BUN 10, creatinine 0.5, glucose 93, calcium 8.2. Arterial blood gas this morning on 2 liters of oxygen was 7.55/54/53 with a measured saturation 90%. Yesterday's intake and output (I and O) were 1400 in and 5500 out, making her negative 4100. Weight 200.5 kg. Thus far today, 180 in and 1100 out, making her negative 920. Weight 196.4. IMPRESSION: 1. Acute and chronic respiratory failure. Acute portion was felt secondary to decompensation of her multiple underlying difficulties secondary to urinary tract infection (UTI). That portion has resolved. Her chronic difficulties are felt secondary to obesity hypoventilation and likely obstructive sleep apnea. She also has pulmonary hypertension and diastolic dysfunction. 2. Obesity hypoventilation syndrome. 3. Probable obstructive sleep apnea. 4.. Pulmonary hypertension, moderate to moderately severe, on echocardiogram this admission. 5. Diastolic dysfunction. 6. Extreme obesity. 7. Hypothyroidism. Most recent thyroid-stimulating hormone (TSH) normal. 8. Urinary tract infection secondary to Escherichia (E.) coli. RECOMMENDATIONS: 1. At this time, I feel that she has tolerated the bilevel device and can be transferred to the floor. Continue to use bilevel with naps and nocturnally. 2, I spoke with Dr. Bates, and it is anticipated that she may be discharged by Friday. 3. I will, therefore, place the order for the polysomnogram. Both Ms. Sales and her understand that she has to be an outpatient, and it may be several days after she is discharged before the study can be arranged. 4. Morbidity of untreated sleep apnea reviewed and questions answered. 5. I also reviewed compliance requirements, and questions were answered. 6. I discussed with them that we typically set our followup after the titration study at [address], if she has not met the compliance requirements, we will be able to work with them to help them meet them. I also encouraged both Ms. Sales and her to contact us sooner if she was having difficulty. 7. I have reviewed the 30-day trial of the mask. 8.. Polysomnogram reviewed, and questions were answered. 9. I told Ms. Sales that I anticipate that she will be a split-night study. If not, she will need to return to the laboratory for a titration study. 10. Both and Mrs. Sales understand that the equipment will not be available the day of the study as the prescription needs to go to the home care company, and they need to process it through insurance. 11. Mr. Sales assures me that he will attend the polysomnogram with her. He is able to transfer her to the bedside commode himself at night. 12. I reviewed sleep symptoms with Ms. Sales. She admits excessive daytime sleepiness. She may or may not feel refreshed when she wakes up in the morning. She does not when she does not have other activities to do. 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 She does not experience any gasping respirations or paroxysmal nocturnal dyspnea (PND) nor has he witnessed those. No morning headaches. 13. Ms. Sales is going to require oxygen continuously due to her obesity hypoventilation. She wants to travel by train to [place] shortly after discharge. I recommended that she make certain that the home care company that she chooses has national coverage that she can get oxygen in [place] where she is going to visit her family. This will most likely be [facility]. RACHEL
[2019-06-09] MEDS: OMEPRAZOLE 20 MG CAP PO SCH (22:42)
[2019-06-09] MEDS: ACETAMINOPH W/CODEINE #3 TAB UD PO PRN (22:45)
[2019-06-09] MEDS: RAMELTEON 8 MG TAB (ROZEREM) PO SCH (22:55)
[2019-06-10] MEDS: IPRATROPIUM 0.5MG/ALBUTEROL 2.5MG INH SOL UD 3ML (DUONEB)(J7620) NEB SCH ×8 (00:17→23:32)
[2019-06-10] MEDS: FUROSEMIDE 20 MG/2 ML VIAL (J1940) IV SCH ×3 (00:46→15:51)
[2019-06-10] MEDS: HEPARIN SOD (PORCINE) 5000 UNITS/ML VIAL SC SCH ×3 (00:46→17:52)
[2019-06-10 06:00] VITALS: BP 124/60
[2019-06-10] MEDS: LEVOTHYROXINE 88MCG TABLET (0.088 MG) PO SCH (06:35)
[2019-06-10] MEDS: SODIUM CHLORIDE 0.9% INJ 10 ML SYR IV SCH ×2 (06:36→17:52)
[2019-06-10] MEDS: SODIUM CHLORIDE 0.9% INJ 10 ML SYR IV PRN (06:36)
[2019-06-10] MEDS: SLF 3 ML SYR IV SCH ×3 (06:37→21:23)
[2019-06-10 06:41] LABS: HEMATOCRIT 41.1 % (36.0-47.0); MEAN CORPUSCULAR HEMOGLOBIN 26.3 pg (27.0-33.0); MEAN CORPUSCULAR HGB CONC 29.2 g/dl (32.0-36.5); MEAN CORPUSCULAR VOLUME 89.9 fl (80.0-96.0); PLATELET COUNT, AUTOMATED 213 10^3/uL (150-450); RED BLOOD COUNT 4.57 10^6/uL (4.00-5.40); WHITE BLOOD COUNT 4.8 10^3/uL (4.0-10.0)
[2019-06-10 07:02] LABS: BLOOD UREA NITROGEN 10 MG/DL (7-18); CALCIUM LEVEL 8.5 MG/DL (8.8-10.2); CARBON DIOXIDE LEVEL 42 MEQ/L (21-32); CHLORIDE LEVEL 88 MEQ/L (98-107); CREATININE FOR GFR 0.55 MG/DL (0.55-1.30); GLOMERULAR FILTRATION RATE > 60.0 (>39); GLUCOSE, FASTING 96 MG/DL (70-100); POTASSIUM SERUM 3.8 MEQ/L (3.5-5.1); SODIUM LEVEL 136 MEQ/L (136-145)
[2019-06-10] MEDS: ASPIRIN 81 MG ENTERIC TAB PO SCH (08:32)
[2019-06-10] MEDS: CEFDINIR 300 MG CAP (OMNICEF) PO SCH ×2 (08:32→21:19)
[2019-06-10] MEDS: POTASSIUM CHLORIDE 10 MEQ SR TABLET PO SCH ×2 (08:33→21:20)
[2019-06-10] MEDS: ANALGESIC BALM CRM 120 GM TOP SCH ×4 (08:33→21:22)
[2019-06-10] MEDS: LACTOBACILLUS ACIDOPHILUS CAP (BACID) PO SCH (08:34)
[2019-06-10] MEDS: ACETAMINOPHEN TAB 650MG DOSE (2X325MG) PO SCH ×3 (08:34→21:00)
[2019-06-10] MEDS: SENOKOT S TAB PO SCH ×2 (08:34→21:19)
[2019-06-10] MEDS: NYSTATIN 100,000 UNITS/GM TOPICAL PWD 15 GM TOP SCH ×2 (08:38→21:23)
[2019-06-10] MEDS: NYSTATIN CREAM 15 GM TOP SCH (08:38)
--- NOTE | 2019-06-10 13:57 | IPNPDOC ---
Text Note Date of Service The patient was seen on 06/10/19. NOTE SUBJECTIVE: Says did have a better night. Slept well but used the table top only for 2 to 3 hours. Rest of the night slept just with oxygen. I explained that it is necessary to use it all night and during the nights or when ever she is planning to sleep. Has not had a bowel movement yet. No fever or chills, no abdominal pain , nausea or vomiting. PHYSICAL EXAMINATION: Vital signs: pls see below GENERAL: Awake alert oriented x 3, on BIPAP, laying comfortably no acute dis tress, morbidly obese. HEENT: normocephalic, atraumatic, moist mucous membranes, anicteric eyes. NECK: negative jugular venous distention. No thyromegaly or cervical lymphadenopathy. Lungs: distant breath sounds. Diminished with bibasilar crackles. Heart: distant heart sounds S1, S2 normal, sinus rhythm. No murmurs, rubs or gallops. Abdomen: Hugely Obese, soft, nontender, nondistended. Bowel sounds present. Back: some erythema but no skin breakdown. SKIN: Positive erythema under the abdominal folds, under the breasts moist, warm, some skin breakdown of posterior lower extremities and upper thigh on the posterior aspect. Lower extremities: 3+ pitting edema to the sacrum with multiple open lesions on the thigh and the bilateral lower extremities. Chronic stasis dermatitis, thick dry skin with ecxematous changes and stasis ulcers. LABORATORY DATA: reviewed pls see below Urine culture : Ecoli neg ESBL Knee x-ray 06/03/2019 bilateral, no obvious acute fracture. Left knee prior arthroplasty, chronic calcifications, some soft tissue swelling appreciated, no definite effusion, no obvious acute fracture. Right knee overlying soft tissue swelling is appreciated, effusion cannot be excluded, no obvious acute fracture. ASSESSMENT AND PLAN: This is a 74-year-old female who lives at home, managed by her and a caregiver, usually walks with her walker, has a chair lift to the second floor and a garage entrance, not requiring any steps or stairs into the home, with morbid obesity, body mass index (BMI) of 81.5, probable obstructive sleep apnea and has not undergone any prior sleep study as outpatient, hypertension, hypothyroidism, history of recurrent urinary tract infections (UTIs) with extended spectrum beta-lactamase (ESBL) Escherichia (E) coli, history of perforated gastric ulcer, pyoderma gangrenosum, on chronic immunosuppressive therapy, chronic venous stasis ulcers, bilateral prostatic knee replacement, and kidney stones requiring stenting presents to the emergency room with a 4 day history of generalized weakness with limited mobility and fallen on her knees on the right side requiring several personnel to assist onto a stretcher. The patient was noted to have a pulse oximetry of 88%, when she sat up improved to 94%. She has no documented history of obstructive sleep apnea or congestive heart failure. She is admitted for urinary tract infection with history of ESBL E coli and is admitted for IV antibiotics and physical therapy. Chest x-ray on admission showed bibasilar infiltrates versus atelectasis. BNP was elevated with 2830 on admission. Acute on chronic hypercapnic respiratory failure due to obesity hyperventilation syndrome, morbid obesity bmi 74.3, untreated WAN, corpulmonale On Table top Bilevel ventilation with 20/14 support with 2 liters oxygen bleed in. avoiding all sedatives, opioids. pulm Dr. Pizano consulted will need outpt sleep study. will be given home oxygen o2 at hospital discharge. Acute hypoxic respiratory failure secondary to acute diastolic CHF and acute on chronic right heart failure due to untreated obstructive sleep apnea, obesity, hypoventilation syndrome 2-D echocardiogram reviewed. The Continue IV lasix , 2 liter fluid restriction, daily weights, and strict intake and output. oxygen supplementation Urinary tract infection present at admission Ecoli pansensitive finish course of cefdinir. Acute decompensated diastolic congestive heart failure with preserved EF Continue IV lasix, fluid restriction 2 l , I/O will reduce dose as becoming alkalotic. Probable obstructive sleep apnea. will need sleep study as outpatient which is going to be scheduled as early as possible probably within 1 week of discharge. Hypertension. atenolol, lasix Hypothyroidism. synthroid home dose. Bilateral knee pain secondary to recent fall. X-rays have been negative for fractures. Activity as tolerated for now. Avoid opioid narcotics due increased risk of hypercapnic respiratory failure, hypercarbia, altered mental status. Physical therapy (PT), occupational therapy (OT) have been consulted History of perforated gastric ulcer. Prilosec 40 mg nightly. History of pyoderma gangrenosum and chronic lower extremity venous stasis ulcers. The patient's chronic immunosuppressant therapy Cellcept has been held in light of acute infection. Will resume once the patient's infection has resolved. History of kidney stones requiring stenting. no issues at present. Morbid obesity, BMI of 77.1 complicating care. on air mattress, turn and reposition if possible. PT/OT, manager mental health recommendations for weight loss. Chronic back pain due to risk of worsening respiratory acidosis and hypercapnia , now complicated by hypoxia due to chf exacerbation. will need pain mgt to help with nonopioid mgt and avoiding NSAIDs. trial of topical bengay, heating pad, and scheduled tylenol. dvt prophylaxis: heparin sq. VS,Fishbone, I+O VS, Fishbone, I+O Laboratory Tests 06/10/19 06:27 Red Blood Count 4.57, Mean Corpuscular Volume 89.9, Mean Corpuscular Hemoglobin 26.3 L, Mean Corpuscular Hemoglobin Concent 29.2 L, Red Cell Distribution Width 17.2 H, Calcium Level 8.5 L Vital Signs Date Time Temp Pulse Resp B/P (MAP) Pulse Ox O2 Delivery O2 Flow Rate FiO2 06/10/19 06:00 98.4 91 19 124/60 (81) 98 06/09/19 20:05 Nasal Cannula 1.0 06/08/19 08:01 30 I&O- Last 24 Hours up to 6 AM 06/10/19 06:00 Intake Total 870 ml Output Total 4075 ml Balance -3205 ml MIRACLE LOBO MD Jun 10, 2019 13:57
[2019-06-10 14:00] VITALS: BP 124/68
[2019-06-10] MEDS ORDERED: MOM 30ML SUSPENSION UDC PO PRN (14:00)
--- NOTE | 2019-06-10 18:35 | IPN ---
DATE: 06/10/2019 NOTE: Ms. Sales only wore the bilevel device for a couple of hours last night. She did request it at that time. However, she took it off after a few hours and states that she slept well with just oxygen in place. No clinical change since she was seen. Unfortunately, she did not pass physical therapy and they are not certain when she will pass. She may even end up requiring subacute rehabilitation. Nonetheless, I talked to her nurse, Dr. Bates, and physical therapy and none of them feel that she will be ready for discharge on Friday. We had scheduled her polysomnogram for Friday evening but we will now cancel that and move it out further. I spoke to all services and reminded them that she needs to be an outpatient when she goes to the sleep laboratory and if she needs assistance, she will need somebody with her. I had previously spoken to her , who helps her to the commode at home, and he will need to be present or another assistant professor in family studies to help her in the laboratory. I have already requested a bedside commode for that study. Furthermore, I reminded all services that after the sleep laboratory that it will take some time before she is set up on the device as the prescription goes to a home care company and they need to get it run through insurance before she is provided with the device. Furthermore, if she does not have a split night study, she will need to return to the laboratory for a titration study before she gets the device. ASSESSMENT: 1. Acute and chronic respiratory failure with the acute portion resolved and felt secondary to a urinary tract infection (UTI). The chronic portion is felt multifactorial but in part secondary to obesity hypoventilation, likely obstructive sleep apnea, pulmonary hypertension and diastolic dysfunction. 2. Obesity hypoventilation syndrome. 3. Probable obstructive sleep apnea. 4. Pulmonary hypertension, moderate to moderately severe on echocardiogram May 2019. 5. Diastolic dysfunction. 6. Extreme obesity. 7. Hypothyroidism. RECOMMENDATIONS: 1. As noted above, we had scheduled her for a polysomnogram on next Friday evening which will be cancelled. 2. She has now been rescheduled for a polysomnogram on Friday06/22/2019. 3. We will try to contact the floor close to that day but before that date to make certain she is going to be discharged then. If not, we will need to reschedule the study again. I will also ask that the hospitalist involved contact us if they know that she is not going to be discharged by that time so we can offer the spot to another member of the community. 4. I again reminded Ms. Sales that she needs to wear the bilevel device all times that she is asleep, including naps. Oxygen only treats low oxygen is not a treatment for hypoventilation. She indicates that she understands this. Thank you for this consultation. At the present time, there are no further pulmonary issues outside of making certain that she attends the polysomnogram. Therefore, the service will sign off. Please recontact the pulmonary service if there are further problems/questions. TOTAL TIME: 20 minutes, not including procedure time. RACHEL
[2019-06-10] MEDS: RAMELTEON 8 MG TAB (ROZEREM) PO SCH (21:18)
[2019-06-10] MEDS: OMEPRAZOLE 20 MG CAP PO SCH (21:19)
[2019-06-10] MEDS: ACETAMINOPH W/CODEINE #3 TAB UD PO PRN (21:22)
[2019-06-10 22:00] VITALS: BP 133/65
[2019-06-11] MEDS: HEPARIN SOD (PORCINE) 5000 UNITS/ML VIAL SC SCH ×3 (01:12→17:10)
[2019-06-11] MEDS: FUROSEMIDE 20 MG/2 ML VIAL (J1940) IV SCH ×3 (01:12→17:10)
[2019-06-11 01:14] VITALS: BP 137/59
[2019-06-11] MEDS: IPRATROPIUM 0.5MG/ALBUTEROL 2.5MG INH SOL UD 3ML (DUONEB)(J7620) NEB SCH ×5 (04:14→20:07)
[2019-06-11 06:00] VITALS: BP 134/60
[2019-06-11] MEDS: LEVOTHYROXINE 88MCG TABLET (0.088 MG) PO SCH (06:38)
[2019-06-11] MEDS: SLF 3 ML SYR IV SCH ×3 (06:39→22:41)
[2019-06-11] MEDS: SODIUM CHLORIDE 0.9% INJ 10 ML SYR IV SCH ×2 (06:39→17:11)
[2019-06-11] MEDS: SODIUM CHLORIDE 0.9% INJ 10 ML SYR IV PRN (06:42)
[2019-06-11] MEDS: SANTYL OINT 30GM TOP SCH (08:23)
[2019-06-11] MEDS: LACTOBACILLUS ACIDOPHILUS CAP (BACID) PO SCH (08:43)
[2019-06-11] MEDS: CEFDINIR 300 MG CAP (OMNICEF) PO SCH ×2 (08:43→21:52)
[2019-06-11] MEDS: ACETAMINOPHEN TAB 650MG DOSE (2X325MG) PO SCH ×3 (08:43→21:53)
[2019-06-11] MEDS: SENOKOT S TAB PO SCH ×2 (08:44→21:00)
[2019-06-11] MEDS: POTASSIUM CHLORIDE 10 MEQ SR TABLET PO SCH ×2 (08:44→21:52)
[2019-06-11] MEDS: MUPIROCIN 2% OINT 22 GM TUBE TOP SCH (08:44)
[2019-06-11] MEDS: ANALGESIC BALM CRM 120 GM TOP SCH ×4 (08:45→21:53)
[2019-06-11] MEDS: NYSTATIN 100,000 UNITS/GM TOPICAL PWD 15 GM TOP SCH ×2 (08:46→21:53)
[2019-06-11] MEDS: NYSTATIN CREAM 15 GM TOP SCH (08:46)
--- NOTE | 2019-06-11 10:56 | IPNPDOC ---
Text Note Date of Service The patient was seen on 06/11/19. NOTE SUBJECTIVE: As per nurses she did not use tht tabl top . The pateint said that they were not putting it on correctly and it was hurting her nose and she could not tolerate it. It put on the mask myself after opening and adjusting all marilyn starps and showed her how it is put on. She said it felt mre comfortable and believes she will be able to use it longer tonight. Had 2 bowel movements yesterday and is having one today. No fever or chillls. No chest pain or Sob . She is very eager to go home and work with PT. PHYSICAL EXAMINATION: Vital signs: pls see below GENERAL: Awake alert oriented x 3, on BIPAP, laying comfortably no acute distr ess, morbidly obese. HEENT: normocephalic, atraumatic, moist mucous membranes, anicteric eyes. NECK: negative jugular venous distention. No thyromegaly or cervical lymphadenopathy. Lungs: distant breath sounds. Diminished with bibasilar crackles. Heart: distant heart sounds S1, S2 normal, sinus rhythm. No murmurs, rubs or gallops. Abdomen: Hugely Obese, soft, nontender, nondistended. Bowel sounds present. Back: some erythema but no skin breakdown. SKIN: Positive erythema under the abdominal folds, under the breasts moist, warm, some skin breakdown of posterior lower extremities and upper thigh on the posterior aspect. Lower extremities: 3+ pitting edema to the sacrum with multiple open lesions on the thigh and the bilateral lower extremities. Chronic stasis dermatitis, thick dry skin with ecxematous changes and stasis ulcers. LABORATORY DATA: reviewed pls see below Urine culture : Ecoli neg ESBL Knee x-ray 06/03/2019 bilateral, no obvious acute fracture. Left knee prior arthroplasty, chronic calcifications, some soft tissue swelling appreciated, no definite effusion, no obvious acute fracture. Right knee overlying soft tissue swelling is appreciated, effusion cannot be excluded, no obvious acute fracture. ASSESSMENT AND PLAN: This is a 74-year-old female who lives at home, managed by her and a caregiver, usually walks with her walker, has a chair lift to the second floor and a garage entrance, not requiring any steps or stairs into the home, with morbid obesity, body mass index (BMI) of 81.5, probable obstructive sleep apnea and has not undergone any prior sleep study as outpatient, hypertension, hypothyroidism, history of recurrent urinary tract infections (UTIs) with extended spectrum beta-lactamase (ESBL) Escherichia (E) coli, history of perforated gastric ulcer, pyoderma gangrenosum, on chronic immunosuppressive therapy, chronic venous stasis ulcers, bilateral prostatic knee replacement, and kidney stones requiring stenting presents to the emergency room with a 4 day history of generalized weakness with limited mobility and fallen on her knees on the right side requiring several personnel to assist onto a stretcher. The patient was noted to have a pulse oximetry of 88%, when she sat up improved to 94%. She has no documented history of obstructive sleep apnea or congestive heart failure. She is admitted for urinary tract infection with history of ESBL E coli and is admitted for IV antibiotics and physical therapy. Chest x-ray on admission showed bibasilar infiltrates versus atelectasis. BNP was elevated with 2830 on admission. Acute on chronic hypercapnic respiratory failure due to obesity hyperventilation syndrome, morbid obesity bmi 74.3, untreated WAN, corpulmonale On Table top Bilevel ventilation with 20/14 support with 2 liters oxygen bleed in. avoiding all sedatives, opioids. pulm Dr. Pizano consulted will need outpt sleep study. will be given home oxygen o2 at hospital discharge. Acute hypoxic respiratory failure secondary to acute diastolic CHF and acute on chronic right heart failure due to untreated obstructive sleep apnea, obesity, hypoventilation syndrome 2-D echocardiogram reviewed. The Continue IV lasix , 2 liter fluid restriction, daily weights, and strict intake and output. oxygen supplementation Urinary tract infection present at admission Ecoli pansensitive finish course of cefdinir. Acute decompensated diastolic congestive heart failure with preserved EF Continue IV lasix, fluid restriction 2 l , I/O will reduce dose as becoming alkalotic. Probable obstructive sleep apnea. will need sleep study as outpatient which is going to be scheduled as early as possible probably within 1 week of discharge. Hypertension. atenolol, lasix Hypothyroidism. synthroid home dose. Bilateral knee pain secondary to recent fall. X-rays have been negative for fractures. Activity as tolerated for now. Avoid opioid narcotics due increased risk of hypercapnic respiratory failure, hypercarbia, altered mental status. Physical therapy (PT), occupational therapy (OT) have been consulted History of perforated gastric ulcer. Prilosec 40 mg nightly. History of pyoderma gangrenosum and chronic lower extremity venous stasis ulcers. The patient's chronic immunosuppressant therapy Cellcept has been held in light of acute infection. Will resume once the patient's infection has resolved. History of kidney stones requiring stenting. no issues at present. Morbid obesity, BMI of 77.1 complicating care. on air mattress, turn and reposition if possible. 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 Chronic back pain due to risk of worsening respiratory acidosis and hypercapnia , now complicated by hypoxia due to chf exacerbation. will need pain mgt to help with non opioid mgt and avoiding NSAIDs. trial of topical bengay, heating pad, and scheduled tylenol. dvt prophylaxis: heparin sq. VS,Fishbone, I+O VS, Fishbone, I+O Vital Signs Date Time Temp Pulse Resp B/P (MAP) Pulse Ox O2 Delivery O2 Flow Rate FiO2 06/11/19 06:00 98.0 85 20 134/60 (84) 96 06/10/19 09:00 2.0 06/09/19 20:05 Nasal Cannula 06/08/19 08:01 30 I&O- Last 24 Hours up to 6 AM 06/11/19 06:00 Intake Total 1200 ml Output Total 2325 ml Balance -1125 ml MIRACLE LOBO MD Jun 11, 2019 10:56
[2019-06-11 14:00] VITALS: BP 137/73
--- NOTE | 2019-06-11 16:22 | ECGEPIP ---
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 Electronically Signed on 06-11-2019 16:22:17 EDT by Evangelist Rhoades
[2019-06-11 20:22] VITALS: O2SAT 92
[2019-06-11] MEDS: RAMELTEON 8 MG TAB (ROZEREM) PO SCH (21:52)
[2019-06-11] MEDS: OMEPRAZOLE 20 MG CAP PO SCH (21:52)
[2019-06-11 22:00] VITALS: BP 135/72
[2019-06-12] MEDS: HEPARIN SOD (PORCINE) 5000 UNITS/ML VIAL SC SCH ×3 (00:29→16:58)
[2019-06-12] MEDS: FUROSEMIDE 20 MG/2 ML VIAL (J1940) IV SCH ×3 (00:29→16:58)
[2019-06-12] MEDS: SODIUM CHLORIDE 0.9% INJ 10 ML SYR IV PRN ×2 (00:30→10:23)
[2019-06-12] MEDS: IPRATROPIUM 0.5MG/ALBUTEROL 2.5MG INH SOL UD 3ML (DUONEB)(J7620) NEB SCH ×6 (04:00→19:39)
[2019-06-12 05:21] LABS: ABG BASE EXCESS 12.2 (-2.0-2.0); ABG HCO3 37.7 MEQ/L (22.0-26.0); ABG O2 SATURATION 93.7 % (95.0-99.0); ABG PARTIAL PRESSURE CO2 52.5 mmHg (35.0-45.0); ABG PARTIAL PRESSURE O2 68.3 mmHg (75.0-100.0); ABG STANDARD HCO3 35.9 MEQ/L (22.0-26.0); ABG TOTAL CO2 39.3 MEQ/L (23.0-31.0); ABG pH (ARTERIAL) 7.474 UNITS (7.350-7.450)
[2019-06-12 06:00] VITALS: BP 130/76
[2019-06-12 06:34] LABS: BASO # 0.1 10^3/uL (0.0-0.2); EOS # 0.4 10^3/uL (0.0-0.5); EOS % 8.2 % (0.0-3.0); HEMATOCRIT 40.8 % (36.0-47.0); HEMOGLOBIN 11.8 g/dl (12.0-15.5); LYMPH # 1.1 10^3/uL (1.5-5.0); LYMPH % 21.5 % (24.0-44.0); MEAN CORPUSCULAR HEMOGLOBIN 26.8 pg (27.0-33.0); MEAN CORPUSCULAR HGB CONC 28.9 g/dl (32.0-36.5); MEAN CORPUSCULAR VOLUME 92.7 fl (80.0-96.0); MONO # 0.6 10^3/uL (0.0-0.8); MONO % 11.8 % (0.0-5.0); NEUTROPHILS # 2.9 10^3/uL (1.5-8.5); NEUTROPHILS % 57.3 % (36.0-66.0); PLATELET COUNT, AUTOMATED 234 10^3/uL (150-450)
[2019-06-12] MEDS: LEVOTHYROXINE 88MCG TABLET (0.088 MG) PO SCH (06:34)
[2019-06-12] MEDS: SODIUM CHLORIDE 0.9% INJ 10 ML SYR IV SCH ×2 (06:35→17:00)
[2019-06-12] MEDS: SLF 3 ML SYR IV SCH ×3 (06:35→22:55)
[2019-06-12 07:00] LABS: BLOOD UREA NITROGEN 10 MG/DL (7-18); CALCIUM LEVEL 8.9 MG/DL (8.8-10.2); CARBON DIOXIDE LEVEL 37 MEQ/L (21-32); CHLORIDE LEVEL 92 MEQ/L (98-107); CREATININE FOR GFR 0.52 MG/DL (0.55-1.30); GLOMERULAR FILTRATION RATE > 60.0 (>39); GLUCOSE, FASTING 91 MG/DL (70-100); POTASSIUM SERUM 3.8 MEQ/L (3.5-5.1); SODIUM LEVEL 133 MEQ/L (136-145)
[2019-06-12 09:00] VITALS: O2SAT 92
[2019-06-12] MEDS: SENOKOT S TAB PO SCH (09:00)
[2019-06-12] MEDS: NYSTATIN CREAM 15 GM TOP SCH (09:00)
[2019-06-12] MEDS: ACETAMINOPHEN TAB 650MG DOSE (2X325MG) PO SCH ×3 (09:00→19:26)
[2019-06-12] MEDS: ASPIRIN 81 MG ENTERIC TAB PO SCH (10:13)
[2019-06-12] MEDS: ACETAMINOPH W/CODEINE #3 TAB UD PO PRN ×2 (10:14→22:09)
[2019-06-12] MEDS: POTASSIUM CHLORIDE 10 MEQ SR TABLET PO SCH ×2 (10:15→22:08)
[2019-06-12] MEDS: LACTOBACILLUS ACIDOPHILUS CAP (BACID) PO SCH (10:15)
[2019-06-12] MEDS: CEFDINIR 300 MG CAP (OMNICEF) PO SCH (10:15)
[2019-06-12] MEDS: ANALGESIC BALM CRM 120 GM TOP SCH ×4 (10:17→22:10)
[2019-06-12] MEDS: NYSTATIN 100,000 UNITS/GM TOPICAL PWD 15 GM TOP SCH ×2 (10:17→22:10)
[2019-06-12 14:00] VITALS: BP 130/76
[2019-06-12] MEDS ORDERED: SENOKOT S TAB PO PRN (14:15)
[2019-06-12 22:00] VITALS: BP 121/59
[2019-06-12] MEDS: OMEPRAZOLE 20 MG CAP PO SCH (22:08)
[2019-06-12] MEDS: RAMELTEON 8 MG TAB (ROZEREM) PO SCH (22:08)
[2019-06-12 23:45] VITALS: O2SAT 92
[2019-06-13] MEDS: HEPARIN SOD (PORCINE) 5000 UNITS/ML VIAL SC SCH ×3 (00:14→17:43)
[2019-06-13] MEDS: FUROSEMIDE 20 MG/2 ML VIAL (J1940) IV SCH ×3 (00:14→14:55)
[2019-06-13] MEDS: ACETAMINOPHEN TAB 650MG DOSE (2X325MG) PO PRN (03:12)
[2019-06-13] MEDS: LEVOTHYROXINE 88MCG TABLET (0.088 MG) PO SCH (05:58)
[2019-06-13] MEDS: SODIUM CHLORIDE 0.9% INJ 10 ML SYR IV SCH ×2 (05:59→17:43)
[2019-06-13 06:00] VITALS: BP 121/68
[2019-06-13] MEDS: SLF 3 ML SYR IV SCH ×3 (06:00→22:00)
--- NOTE | 2019-06-13 06:57 | IPNPDOC ---
Text Note Date of Service The patient was seen on 06/12/19. NOTE SUBJECTIVE: Used the Table top better over night, ABG noted this am stable. Had several loose bowel movements some of them dark brown in color. feels better today. working with PT. PHYSICAL EXAMINATION: Vital signs: pls see below GENERAL: Awake alert oriented x 3, on BIPAP, laying comfortably no acute distress, morbidly obese. HEENT: normocephalic, atraumatic, moist mucous membranes, anicteric eyes. NECK: negative jugular venous distention. No thyromegaly or cervical lymphadenopathy. Lungs: distant breath sounds. Diminished with bibasilar crackles. Heart: distant heart sounds S1, S2 normal, sinus rhythm. No murmurs, rubs or gallops. Abdomen: Hugely Obese, soft, nontender, nondistended. Bowel sounds present. Back: some erythema but no skin breakdown. SKIN: Positive erythema under the abdominal folds, under the breasts moist, warm, some skin breakdown of posterior lower extremities and upper thigh on the posterior aspect. Lower extremities: 3+ pitting edema to the sacrum with multiple open lesions on the thigh and the bilateral lower extremities. Chronic stasis dermatitis, thick dry skin with ecxematous changes and stasis ulcers. LABORATORY DATA: reviewed pls see below Urine culture : Ecoli neg ESBL Knee x-ray 06/03/2019 bilateral, no obvious acute fracture. Left knee prior arthroplasty, chronic calcifications, some soft tissue swelling appreciated, no definite effusion, no obvious acute fracture. Right knee overlying soft tissue swelling is appreciated, effusion cannot be excluded, no obvious acute fracture. ASSESSMENT AND PLAN: This is a 74-year-old female who lives at home, managed by her and a caregiver, usually walks with her walker, has a chair lift to the second floor and a garage entrance, not requiring any steps or stairs into the home, with morbid obesity, body mass index (BMI) of 81.5, probable obstructive sleep apnea and has not undergone any prior sleep study as outpatient, hypertension, hypothyroidism, history of recurrent urinary tract infections (UTIs) with extended spectrum beta-lactamase (ESBL) Escherichia (E) coli, history of perforated gastric ulcer, pyoderma gangrenosum, on chronic immunosuppressive therapy, chronic venous stasis ulcers, bilateral prostatic knee replacement, and kidney stones requiring stenting presents to the emergency room with a 4 day history of generalized weakness with limited mobility and fallen on her knees on the right side requiring several personnel to assist onto a stretcher. The patient was noted to have a pulse oximetry of 88%, when she sat up improved to 94%. She has no documented history of obstructive sleep apnea or congestive heart failure. She is admitted for urinary tract infection with history of ESBL E coli and is admitted for IV antibiotics and physical therapy. Chest x-ray on admission showed bibasilar infiltrates versus atelectasis. BNP was elevated with 2830 on admission. Acute on chronic hypercapnic respiratory failure due to obesity hyperventilation syndrome, morbid obesity bmi 74.3, untreated WAN, corpulmonale On Table top Bilevel ventilation with 20/14 support with 2 liters oxygen bleed in. avoiding all sedatives, opioids. pulm Dr. Pizano consulted will need outpt sleep study. will be given home oxygen o2 at hospital discharge. Acute hypoxic respiratory failure secondary to acute diastolic CHF and acute on chronic right heart failure due to untreated obstructive sleep apnea, obesity, hypoventilation syndrome 2-D echocardiogram reviewed. The Continue IV lasix , 2 liter fluid restriction, daily weights, and strict intake and output. oxygen supplementation Urinary tract infection present at admission Ecoli pansensitive finish course of cefdinir. Acute decompensated diastolic congestive heart failure with preserved EF Continue IV lasix, fluid restriction 2 l , I/O will reduce dose as becoming alkalotic. Probable obstructive sleep apnea. will need sleep study as outpatient which is going to be scheduled as early as possible probably within 1 week of discharge. Hypertension. atenolol, lasix Hypothyroidism. synthroid home dose. Bilateral knee pain secondary to recent fall. X-rays have been negative for fractures. Activity as tolerated for now. Avoid opioid narcotics due increased risk of hypercapnic respiratory failure, hypercarbia, altered mental status. Physical therapy (PT), occupational therapy (OT) have been consulted History of perforated gastric ulcer. Prilosec 40 mg nightly. History of pyoderma gangrenosum and chronic lower extremity venous stasis ulcers. The patient's chronic immunosuppressant therapy Cellcept has been held in light of acute infection. Will resume once the patient's infection has resolved. History of kidney stones requiring stenting. no issues at present. Morbid obesity, BMI of 77.1 complicating care. on air mattress, turn and reposition if possible. 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 Chronic back pain due to risk of worsening respiratory acidosis and hypercapnia , now complicated by hypoxia due to chf exacerbation. will need pain mgt to help with non opioid mgt and avoiding NSAIDs. trial of topical bengay, heating pad, and scheduled tylenol. dvt prophylaxis: heparin sq. VS,Fishbone, I+O VS, Fishbone, I+O Laboratory Tests 06/12/19 05:31 Red Blood Count 4.40, Mean Corpuscular Volume 92.7, Mean Corpuscular Hemoglobin 26.8 L, Mean Corpuscular Hemoglobin Concent 28.9 L, Red Cell Distribution Width 18.1 H, Neutrophils (%) (Auto) 57.3, Lymphocytes (%) (Auto) 21.5 L, Monocytes (%) (Auto) 11.8 H, Eosinophils (%) (Auto) 8.2 H, Basophils (%) (Auto) 1.0, Neutrophils # (Auto) 2.9, Lymphocytes # (Auto) 1.1 L, Monocytes # (Auto) 0.6, Eosinophils # (Auto) 0.4, Basophils # (Auto) 0.1, Calcium Level 8.9 Vital Signs Date Time Temp Pulse Resp B/P (MAP) Pulse Ox O2 Delivery O2 Flow Rate FiO2 06/12/19 06:00 98.1 102 18 130/76 (94) 96 06/11/19 22:00 1.0 06/11/19 20:22 Nasal Cannula 06/08/19 08:01 30 I&O- Last 24 Hours up to 6 AM 06/12/19 06:00 Intake Total 600 ml Output Total 1700 ml Balance -1100 ml MIRACLE LOBO MD Jun 12, 2019 08:59
--- NOTE | 2019-06-13 08:10 | IPNPDOC ---
Text Note Date of Service The patient was seen on 06/13/19. NOTE SUBJECTIVE: No further bowel movements overnight. Is using the BIPAP off and on. Says slowly getting used to it . Said slep better last night. Working with PT but not any significant progress. No fever or chills. No chest pain or abdominal pain. no nausea or vomiting. PHYSICAL EXAMINATION: Vital signs: pls see below GENERAL: Awake alert oriented x 3, morbidly obese. HEENT: normocephalic, atraumatic, moist mucous membranes, anicteric eyes. NECK: negative jugular venous distention. No thyromegaly or cervical lymphadenopathy. Lungs: distant breath sounds. Diminished with bibasilar crackles. Heart: distant heart sounds S1, S2 normal, sinus rhythm. No murmurs, rubs or gallops. Abdomen: Hugely Obese, soft, nontender, nondistended. Bowel sounds present. Back: some erythema but no skin breakdown. SKIN: Positive erythema under the abdominal folds, under the breasts moist, warm, some skin breakdown of posterior lower extremities and upper thigh on the posterior aspect. Lower extremities: 3+ pitting edema to the sacrum with multiple open lesions on the thigh and the bilateral lower extremities. Chronic stasis dermatitis, thick dry skin with ecxematous changes and stasis ulcers. LABORATORY DATA: reviewed pls see below Urine culture : Ecoli neg ESBL Knee x-ray 06/03/2019 bilateral, no obvious acute fracture. Left knee prior arthroplasty, chronic calcifications, some soft tissue swelling appreciated, no definite effusion, no obvious acute fracture. Right knee overlying soft tissue swelling is appreciated, effusion cannot be excluded, no obvious acute fracture. ASSESSMENT AND PLAN: This is a 74-year-old female who lives at home, managed by her and a caregiver, usually walks with her walker, has a chair lift to the second floor and a garage entrance, not requiring any steps or stairs into the home, with morbid obesity, body mass index (BMI) of 81.5, probable obstructive sleep apnea and has not undergone any prior sleep study as outpatient, hypertension, hypothyroidism, history of recurrent urinary tract infections (UTIs) with extended spectrum beta-lactamase (ESBL) Escherichia (E) coli, history of perforated gastric ulcer, pyoderma gangrenosum, on chronic immunosuppressive therapy, chronic venous stasis ulcers, bilateral prostatic knee replacement, and kidney stones requiring stenting presents to the emergency room with a 4 day history of generalized weakness with limited mobility and fallen on her knees on the right side requiring several personnel to assist onto a stretcher. The patient was noted to have a pulse oximetry of 88%, when she sat up improved to 94%. She has no documented history of obstructive sleep apnea or congestive heart failure. She is admitted for urinary tract infection with history of ESBL E coli and is admitted for IV antibiotics and physical therapy. Chest x-ray on admission showed bibasilar infiltrates versus atelectasis. BNP was elevated with 2830 on admission. Acute on chronic hypercapnic respiratory failure due to obesity hyperventilation syndrome, morbid obesity bmi 74.3, untreated WAN, corpulmonale On Table top Bilevel ventilation with 20/14 support with 2 liters oxygen bleed in. will need outpt sleep study. will be given home oxygen o2 at hospital discharge. Acute hypoxic respiratory failure secondary to acute diastolic CHF and acute on chronic right heart failure due to untreated obstructive sleep apnea, obesity, hypoventilation syndrome 2-D echocardiogram reviewed. The Continue IV lasix , 2 liter fluid restriction, daily weights, and strict intake and output. oxygen supplementation Urinary tract infection present at admission Ecoli pansensitive finished course of cefdinir. Acute decompensated diastolic congestive heart failure with preserved EF Continue IV lasix, fluid restriction 2 l , I/O Probable obstructive sleep apnea. will need sleep study as outpatient which is going to be scheduled as early as possible probably within 1 week of discharge. Hypertension. atenolol, lasix Hypothyroidism. synthroid home dose. Bilateral knee pain secondary to recent fall. X-rays have been negative for fractures. Activity as tolerated for now. Avoid opioid narcotics due increased risk of hypercapnic respiratory failure, hypercarbia, altered mental status. Physical therapy (PT), occupational therapy (OT) have been consulted History of perforated gastric ulcer. Prilosec 40 mg nightly. History of pyoderma gangrenosum and chronic lower extremity venous stasis ulcers. The patient's chronic immunosuppressant therapy Cellcept has been held in light of acute infection. Will resume once the patient's infection has resolved. History of kidney stones requiring stenting. no issues at present. Morbid obesity, BMI of 77.1 complicating care. on air mattress, turn and reposition if possible. 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 Chronic back pain bengay, heating pad, and scheduled tylenol. tylenol number 3 taking about twice a day. dvt prophylaxis: heparin sq. VS,Fishbone, I+O VS, Fishbone, I+O Vital Signs Date Time Temp Pulse Resp B/P (MAP) Pulse Ox O2 Delivery O2 Flow Rate FiO2 06/13/19 06:00 98.3 69 20 121/68 (85) 97 06/12/19 23:45 BIPAP/CPAP 06/12/19 22:15 1.0 06/08/19 08:01 30 I&O- Last 24 Hours up to 6 AM 06/13/19 06:00 Intake Total 1850 ml Output Total 3800 ml Balance -1950 ml MIRACLE LOBO MD Jun 13, 2019 06:57
[2019-06-13] MEDS: IPRATROPIUM 0.5MG/ALBUTEROL 2.5MG INH SOL UD 3ML (DUONEB)(J7620) NEB SCH ×3 (08:19→19:43)
[2019-06-13] MEDS: MUPIROCIN 2% OINT 22 GM TUBE TOP SCH (08:38)
[2019-06-13] MEDS: LACTOBACILLUS ACIDOPHILUS CAP (BACID) PO SCH (08:38)
[2019-06-13] MEDS: ACETAMINOPHEN TAB 650MG DOSE (2X325MG) PO SCH ×3 (08:38→21:00)
[2019-06-13] MEDS: POTASSIUM CHLORIDE 10 MEQ SR TABLET PO SCH ×2 (08:38→22:33)
[2019-06-13] MEDS: ANALGESIC BALM CRM 120 GM TOP SCH ×4 (08:39→22:35)
[2019-06-13] MEDS: NYSTATIN CREAM 15 GM TOP SCH (08:39)
[2019-06-13] MEDS: SANTYL OINT 30GM TOP SCH (08:40)
[2019-06-13] MEDS: NYSTATIN 100,000 UNITS/GM TOPICAL PWD 15 GM TOP SCH ×2 (08:40→22:35)
[2019-06-13 09:00] VITALS: O2SAT 92
[2019-06-13 14:00] VITALS: BP 144/87
[2019-06-13] MEDS: ACETAMINOPH W/CODEINE #3 TAB UD PO PRN ×2 (14:55→23:20)
[2019-06-13] MEDS: SODIUM CHLORIDE 0.9% INJ 10 ML SYR IV PRN (14:56)
[2019-06-13 22:00] VITALS: BP 146/86
[2019-06-13 22:05] VITALS: O2SAT 93
[2019-06-13] MEDS: RAMELTEON 8 MG TAB (ROZEREM) PO SCH (22:34)
[2019-06-13] MEDS: OMEPRAZOLE 20 MG CAP PO SCH (22:34)
[2019-06-14 00:38] VITALS: BP 145/83
[2019-06-14] MEDS: HEPARIN SOD (PORCINE) 5000 UNITS/ML VIAL SC SCH ×3 (00:40→18:30)
[2019-06-14] MEDS: FUROSEMIDE 20 MG/2 ML VIAL (J1940) IV SCH ×3 (00:41→15:40)
[2019-06-14] MEDS: SODIUM CHLORIDE 0.9% INJ 10 ML SYR IV PRN ×4 (01:21→15:40)
[2019-06-14 06:00] VITALS: BP 142/82
[2019-06-14] MEDS: SLF 3 ML SYR IV SCH ×3 (06:00→22:00)
[2019-06-14] MEDS: LEVOTHYROXINE 88MCG TABLET (0.088 MG) PO SCH (06:30)
[2019-06-14] MEDS: SODIUM CHLORIDE 0.9% INJ 10 ML SYR IV SCH ×2 (06:31→15:43)
[2019-06-14 06:51] LABS: HEMATOCRIT 40.6 % (36.0-47.0); HEMOGLOBIN 11.9 g/dl (12.0-15.5); MEAN CORPUSCULAR HEMOGLOBIN 26.4 pg (27.0-33.0); MEAN CORPUSCULAR HGB CONC 29.3 g/dl (32.0-36.5); PLATELET COUNT, AUTOMATED 246 10^3/uL (150-450); RED BLOOD COUNT 4.51 10^6/uL (4.00-5.40); WHITE BLOOD COUNT 6.1 10^3/uL (4.0-10.0)
[2019-06-14 07:10] LABS: BLOOD UREA NITROGEN 13 MG/DL (7-18); CARBON DIOXIDE LEVEL 33 MEQ/L (21-32); CHLORIDE LEVEL 97 MEQ/L (98-107); CREATININE FOR GFR 0.56 MG/DL (0.55-1.30); GLOMERULAR FILTRATION RATE > 60.0 (>39); GLUCOSE, FASTING 99 MG/DL (70-100); POTASSIUM SERUM 4.1 MEQ/L (3.5-5.1); SODIUM LEVEL 137 MEQ/L (136-145)
[2019-06-14] MEDS: IPRATROPIUM 0.5MG/ALBUTEROL 2.5MG INH SOL UD 3ML (DUONEB)(J7620) NEB SCH ×3 (07:29→20:42)
[2019-06-14 09:30] VITALS: O2SAT 90
[2019-06-14] MEDS: LACTOBACILLUS ACIDOPHILUS CAP (BACID) PO SCH (09:32)
[2019-06-14] MEDS: ASPIRIN 81 MG ENTERIC TAB PO SCH (09:33)
[2019-06-14] MEDS: NYSTATIN 100,000 UNITS/GM TOPICAL PWD 15 GM TOP SCH ×2 (09:34→22:55)
[2019-06-14] MEDS: ANALGESIC BALM CRM 120 GM TOP SCH ×4 (09:34→22:55)
[2019-06-14] MEDS: POTASSIUM CHLORIDE 10 MEQ SR TABLET PO SCH ×2 (09:35→22:53)
[2019-06-14] MEDS: ACETAMINOPHEN TAB 650MG DOSE (2X325MG) PO SCH (09:35)
--- NOTE | 2019-06-14 13:49 | IPNPDOC ---
Text Note Date of Service The patient was seen on 06/14/19. NOTE SUBJECTIVE: Denies any SOB, denies any cough or phlegm. Wants her tylenol 3 only at night and tylenol pain during the day for shoulder pain. Is using the BIPAP off and on. Says slowly getting used to it . Said slept better last night. Working with PT but not any significant progress. No fever or chills. No chest pain or abdominal pain. no nausea or vomiting. PHYSICAL EXAMINATION: Vital signs: pls see below GENERAL: Awake alert oriented x 3, morbidly obese. HEENT: normocephalic, atraumatic, moist mucous membranes, anicteric eyes. NECK: negative jugular venous distention. No thyromegaly or cervical lymphadenopathy. Lungs: distant breath sounds. Diminished with bibasilar crackles. Heart: distant heart sounds S1, S2 normal, sinus rhythm. No murmurs, rubs or gallops. Abdomen: Hugely Obese, soft, nontender, nondistended. Bowel sounds present. Back: some erythema but no skin breakdown. SKIN: Positive erythema under the abdominal folds, under the breasts moist, warm, some skin breakdown of posterior lower extremities and upper thigh on the posterior aspect. Lower extremities: 3+ pitting edema to the sacrum with multiple open lesions on the thigh and the bilateral lower extremities. Chronic stasis dermatitis, thick dry skin with eczematous changes and stasis ulcers. LABORATORY DATA: reviewed pls see below Urine culture : Ecoli neg ESBL Knee x-ray 06/03/2019 bilateral, no obvious acute fracture. Left knee prior arthroplasty, chronic calcifications, some soft tissue swelling appreciated, no definite effusion, no obvious acute fracture. Right knee overlying soft tissue swelling is appreciated, effusion cannot be excluded, no obvious acute fracture. ASSESSMENT AND PLAN: This is a 74-year-old female who lives at home, managed by her and a caregiver, usually walks with her walker, has a chair lift to the second floor and a garage entrance, not requiring any steps or stairs into the home, with morbid obesity, body mass index (BMI) of 81.5, probable obstructive sleep apnea and has not undergone any prior sleep study as outpatient, hypertension, hypothyroidism, history of recurrent urinary tract infections (UTIs) with extended spectrum beta-lactamase (ESBL) Escherichia (E) coli, history of perforated gastric ulcer, pyoderma gangrenosum, on chronic immunosuppressive therapy, chronic venous stasis ulcers, bilateral prostatic knee replacement, and kidney stones requiring stenting presents to the emergency room with a 4 day history of generalized weakness with limited mobility and fallen on her knees on the right side requiring several personnel to assist onto a stretcher. The patient was noted to have a pulse oximetry of 88%, when she sat up improved to 94%. She has no documented history of obstructive sleep apnea or congestive heart failure. She is admitted for urinary tract infection with history of ESBL E coli and is admitted for IV antibiotics and physical therapy. Chest x-ray on admission showed bibasilar infiltrates versus atelectasis. BNP was elevated with 2830 on admission. Acute on chronic hypercapnic respiratory failure due to obesity hyperventilation syndrome, morbid obesity bmi 74.3, untreated WAN, corpulmonale On Table top Bilevel ventilation with 20/14 support with 2 liters oxygen bleed in. will need outpt sleep study. will be given home oxygen o2 at hospital discharge. Acute hypoxic respiratory failure secondary to acute diastolic CHF and acute on chronic right heart failure due to untreated obstructive sleep apnea, obesity, hypoventilation syndrome 2-D echocardiogram reviewed. The Continue IV lasix , 2 liter fluid restriction, daily weights, and strict intake and output. oxygen supplementation Urinary tract infection present at admission Ecoli pansensitive finished course of cefdinir. Acute decompensated diastolic congestive heart failure with preserved EF Continue IV lasix, fluid restriction 2 l , I/O Probable obstructive sleep apnea. will need sleep study as outpatient which is going to be scheduled as early as possible probably within 1 week of discharge. Hypertension. atenolol, lasix Hypothyroidism. synthroid home dose. Bilateral knee pain secondary to recent fall. X-rays have been negative for fractures. Activity as tolerated for now. Avoid opioid narcotics due increased risk of hypercapnic respiratory failure, hypercarbia, altered mental status. Physical therapy (PT), occupational therapy (OT) have been consulted History of perforated gastric ulcer. Prilosec 40 mg nightly. History of pyoderma gangrenosum and chronic lower extremity venous stasis ulcers. The patient's chronic immunosuppressant therapy Cellcept has been held in light of acute infection. Will resume once the patient's infection has resolved. History of kidney stones requiring stenting. no issues at present. Morbid obesity, BMI of 77.1 complicating care. on air mattress, turn and reposition if possible. PT/OT, volunteer services coordinator recommendations for weight loss. Chronic back pain bengay, heating pad, and scheduled tylenol. tylenol number 3 taking about twice a day. dvt prophylaxis: heparin sq. Dispo: To Rehab only. Can get a sleep study only from home after she is discharged from the rehab. will need lillie able to help her by himself only to use the commode at night during sleep study. VS,Fishbone, I+O VS, Fishbone, I+O Laboratory Tests 06/14/19 06:21 Red Blood Count 4.51, Mean Corpuscular Volume 90.0, Mean Corpuscular Hemoglobin 26.4 L, Mean Corpuscular Hemoglobin Concent 29.3 L, Red Cell Distribution Width 18.4 H, Calcium Level 9.0 Vital Signs Date Time Temp Pulse Resp B/P (MAP) Pulse Ox O2 Delivery O2 Flow Rate FiO2 06/14/19 06:00 97.7 90 20 142/82 (102) 92 06/13/19 22:05 Nasal Cannula 1.0 06/08/19 08:01 30 I&O- Last 24 Hours up to 6 AM 06/14/19 06:00 Intake Total 720 ml Output Total 1400 ml Balance -680 ml MIRACLE LOBO MD Jun 14, 2019 13:49
[2019-06-14 14:00] VITALS: BP 120/65
[2019-06-14] MEDS: NYSTATIN CREAM 15 GM TOP SCH (15:41)
[2019-06-14] MEDS: ACETAMINOPHEN TAB 650MG DOSE (2X325MG) PO PRN (15:54)
[2019-06-14 22:00] VITALS: BP 129/63
[2019-06-14] MEDS: OMEPRAZOLE 20 MG CAP PO SCH (22:53)
[2019-06-14] MEDS: RAMELTEON 8 MG TAB (ROZEREM) PO SCH (22:53)
[2019-06-14] MEDS: ACETAMINOPH W/CODEINE #3 TAB UD PO SCH (22:54)
[2019-06-14] MEDS: MUPIROCIN 2% OINT 22 GM TUBE TOP SCH (23:32)
[2019-06-14] MEDS: SANTYL OINT 30GM TOP SCH (23:32)
[2019-06-15] MEDS: HEPARIN SOD (PORCINE) 5000 UNITS/ML VIAL SC SCH ×3 (00:22→17:45)
[2019-06-15] MEDS: FUROSEMIDE 20 MG/2 ML VIAL (J1940) IV SCH ×3 (00:22→15:53)
[2019-06-15] MEDS: ACETAMINOPHEN TAB 650MG DOSE (2X325MG) PO PRN ×2 (00:23→10:31)
[2019-06-15 00:28] VITALS: BP 149/80
[2019-06-15 03:49] VITALS: O2SAT 92
[2019-06-15 06:00] VITALS: BP 143/78
[2019-06-15] MEDS: SLF 3 ML SYR IV SCH ×3 (06:00→21:52)
[2019-06-15] MEDS: LEVOTHYROXINE 88MCG TABLET (0.088 MG) PO SCH (06:01)
[2019-06-15] MEDS: SODIUM CHLORIDE 0.9% INJ 10 ML SYR IV SCH ×2 (06:02→17:45)
[2019-06-15] MEDS: SODIUM CHLORIDE 0.9% INJ 10 ML SYR IV PRN ×3 (06:03→15:54)
[2019-06-15] MEDS: IPRATROPIUM 0.5MG/ALBUTEROL 2.5MG INH SOL UD 3ML (DUONEB)(J7620) NEB SCH ×3 (07:21→19:27)
[2019-06-15 08:00] VITALS: BP 147/86
[2019-06-15] MEDS: ANALGESIC BALM CRM 120 GM TOP SCH ×4 (09:00→21:51)
[2019-06-15] MEDS: LACTOBACILLUS ACIDOPHILUS CAP (BACID) PO SCH (10:31)
[2019-06-15] MEDS: POTASSIUM CHLORIDE 10 MEQ SR TABLET PO SCH ×2 (10:32→21:51)
[2019-06-15] MEDS: NYSTATIN 100,000 UNITS/GM TOPICAL PWD 15 GM TOP SCH ×2 (10:36→21:51)
[2019-06-15] MEDS: NYSTATIN CREAM 15 GM TOP SCH (10:37)
--- NOTE | 2019-06-15 12:37 | IPNPDOC ---
Subjective Date Seen The patient was seen on 06/15/19. Subjective Chief Complaint/HPI Offers no new complaints at the present time and questions about sleep apnea test Skin: Denies: Rash, Lesions, Jaundice, Bruising, Itching, Dry, Breakdown, Nail Changes, Other Pulmonary: Denies: Dyspnea, Cough, Pleuritic Chest Pain, Other Symptoms Gastrointestinal: Denies: Nausea, Vomiting, Abdominal Pain, Diarrhea, Constipation, Melena, Hematochezia, Other Symptoms Genitourinary: Denies: Dysuria, Frequency, Incontinence, Hematuria, Retention, Other Symptoms Musculoskeletal: Denies: Neck Pain, Back Pain, Shoulder Pain, Arm Pain, Hand Pain, Leg Pain, Foot Pain, Joint Pain, Muscle Pain, Spasms, Other Symptoms Neurological: Denies: Weakness, Numbness, Incoordination, Change in speech, Confusion, Seizures, Other Symptoms Objective Physical Examination General Exam: Positive: Alert, Cooperative Eye Exam: Positive: PERRLA, Conjunctiva & lids normal ENT Exam: Positive: Atraumatic, Mucous membr. moist/pink Neck Exam: Positive: Supple Chest Exam: Positive: Normal air movement Heart Exam: Positive: Rate Normal, Normal S1, Normal S2 Abdomen Exam: Positive: Normal bowel sounds, Soft Extremity Exam: Positive: Normal pulses Skin Exam: Positive: Nl turgor and temperature Neuro Exam: Positive: Strength at 5/5 X4 ext, Sensation Intact Assessment /Plan Problems (1) Acute hypercapnic respiratory failure Status: Acute Problem Text: Acute on chronic hypercapnic respiratory failure due to obesity hyperventilation syndrome, morbid obesity bmi 74.3, untreated WAN, corpulmonale On Table top Bilevel ventilation with 20/14 support with 2 liters oxygen bleed in. will need outpt sleep study. will be given home oxygen o2 at hospital discharge. . (2) WAN (obstructive sleep apnea) Status: Chronic Problem Text: Patient is on oxygen supplement and CPAP inpatient Will probably need outpatient sleep study (3) UTI (urinary tract infection) Problem Text: Urinary tract infection present at admission Ecoli pansensitive finished course of cefdinir. (4) Morbid obesity with BMI of 50.0-59.9, adult Status: Chronic (5) Hypothyroidism Status: Chronic Problem Text: Activity home meds (6) HTN (hypertension) Status: Chronic Problem Text: Under control Continue home meds (7) Debility Status: Acute Problem Text: Possible transfer to rehabilitation facility as per physical therapy recommendations (8) Acute diastolic (congestive) heart failure Status: Acute Problem Text: secondary to acute diastolic CHF and acute on chronic right heart failure due to untreated obstructive sleep apnea, obesity, hypoventilation syndrome 2-D echocardiogram reviewed. The Continue IV lasix , 2 liter fluid restriction, daily weights, and strict intake and output. oxygen supplementation Plan/VTE VTE Prophylaxis Ordered?: Yes VS, I&O, 24H, Fishbone Vital Signs/I&O Vital Signs Date Time Temp Pulse Resp B/P (MAP) Pulse Ox O2 Delivery O2 Flow Rate FiO2 06/15/19 08:00 1.0 06/15/19 08:00 97.8 89 20 147/86 (106) 89 06/15/19 03:49 BIPAP/CPAP I&O- Last 24 Hours up to 6 AM 06/15/19 06:00 Intake Total 1235 ml Output Total 1050 ml Balance 185 ml HUMPHREY MARINELLI MD Jun 15, 2019 12:37
[2019-06-15 14:00] VITALS: BP 136/88
[2019-06-15] MEDS: ACETAMINOPH W/CODEINE #3 TAB UD PO SCH (21:50)
[2019-06-15] MEDS: OMEPRAZOLE 20 MG CAP PO SCH (21:51)
[2019-06-15] MEDS: RAMELTEON 8 MG TAB (ROZEREM) PO SCH (21:51)
[2019-06-15 22:00] VITALS: BP 132/59
[2019-06-16] MEDS: HEPARIN SOD (PORCINE) 5000 UNITS/ML VIAL SC SCH ×3 (00:18→16:42)
[2019-06-16] MEDS: FUROSEMIDE 20 MG/2 ML VIAL (J1940) IV SCH ×3 (00:18→16:42)
[2019-06-16 03:41] VITALS: O2SAT 92
[2019-06-16] MEDS: LEVOTHYROXINE 88MCG TABLET (0.088 MG) PO SCH (05:30)
[2019-06-16] MEDS: SLF 3 ML SYR IV SCH ×3 (05:30→21:09)
[2019-06-16] MEDS: SODIUM CHLORIDE 0.9% INJ 10 ML SYR IV SCH ×2 (05:31→17:23)
[2019-06-16 06:00] VITALS: BP 152/83
[2019-06-16] MEDS: IPRATROPIUM 0.5MG/ALBUTEROL 2.5MG INH SOL UD 3ML (DUONEB)(J7620) NEB SCH ×3 (07:33→20:00)
[2019-06-16 07:34] VITALS: O2SAT 99
[2019-06-16 09:00] VITALS: O2SAT 90
[2019-06-16] MEDS: MUPIROCIN 2% OINT 22 GM TUBE TOP SCH (09:28)
[2019-06-16] MEDS: LACTOBACILLUS ACIDOPHILUS CAP (BACID) PO SCH (09:28)
[2019-06-16] MEDS: ASPIRIN 81 MG ENTERIC TAB PO SCH (09:28)
[2019-06-16] MEDS: POTASSIUM CHLORIDE 10 MEQ SR TABLET PO SCH ×2 (09:28→21:08)
[2019-06-16] MEDS: NYSTATIN CREAM 15 GM TOP SCH (09:29)
[2019-06-16] MEDS: ANALGESIC BALM CRM 120 GM TOP SCH ×4 (09:29→21:09)
[2019-06-16] MEDS: SANTYL OINT 30GM TOP SCH (09:30)
[2019-06-16] MEDS: NYSTATIN 100,000 UNITS/GM TOPICAL PWD 15 GM TOP SCH ×2 (09:30→21:06)
[2019-06-16] MEDS: SODIUM CHLORIDE 0.9% INJ 10 ML SYR IV PRN ×2 (09:31→16:43)
--- NOTE | 2019-06-16 11:20 | IPNPDOC ---
Subjective Date Seen The patient was seen on 06/16/19. Subjective Chief Complaint/HPI Patient is comfortable offers no complaints. Carrillo with physical therapy so she can go home General: Denies: ROS Unobtainable, Chills, Night Sweats, Fatigue, Malaise, Normal Appetite, Other Symptoms Constitutional: Denies: Chills, Fever, Malaise, Night Sweats, Weakness, Fatigue, Weight Loss, Lethargy, Other Skin: Denies: Rash, Lesions, Jaundice, Bruising, Itching, Dry, Breakdown, Nail Changes, Other Pulmonary: Denies: Dyspnea, Cough, Pleuritic Chest Pain, Other Symptoms Cardiovascular: Denies: Chest Pain, Palpitations, Orthopnea, Paroxysmal Noc. Dyspnea, Edema, Lt Headedness, Other Symptoms Gastrointestinal: Denies: Nausea, Vomiting, Abdominal Pain, Diarrhea, Constipation, Melena, Hematochezia, Other Symptoms Musculoskeletal: Denies: Neck Pain, Back Pain, Shoulder Pain, Arm Pain, Hand Pain, Leg Pain, Foot Pain, Joint Pain, Muscle Pain, Spasms, Other Symptoms Neurological: Denies: Weakness, Numbness, Incoordination, Change in speech, Co nfusion, Seizures, Other Symptoms Objective Physical Examination Neck Exam: Positive: Supple Chest Exam: Positive: Normal air movement Heart Exam: Positive: Rate Normal, Normal S1, Normal S2 Abdomen Exam: Positive: Normal bowel sounds, Soft Extremity Exam: Positive: Normal pulses Skin Exam: Positive: Nl turgor and temperature Neuro Exam: Positive: Strength at 5/5 X4 ext, Sensation Intact Assessment /Plan Problems (1) Acute hypercapnic respiratory failure Status: Acute Problem Text: Acute on chronic hypercapnic respiratory failure due to obesity hyperventilation syndrome, morbid obesity bmi 74.3, untreated WAN, corpulmonale On Table top Bilevel ventilation with 20/14 support with 2 liters oxygen bleed in. will need outpt sleep study. Patient will receive home oxygen on discharge Patient will be working with physical therapy and she wishes to go home, but they have recommended possible transfer to rehabilitation center . (2) WAN (obstructive sleep apnea) Status: Chronic Problem Text: Patient is on oxygen supplement and CPAP inpatient Will probably need outpatient sleep study (3) UTI (urinary tract infection) Problem Text: Urinary tract infection present at admission Ecoli pansensitive finished course of cefdinir. (4) Morbid obesity with BMI of 50.0-59.9, adult Status: Chronic (5) Hypothyroidism Status: Chronic Problem Text: Activity home meds (6) HTN (hypertension) Status: Chronic Problem Text: Under control Continue home meds (7) Debility Status: Acute Problem Text: Possible transfer to rehabilitation facility as per physical therapy recommendations (8) Acute diastolic (congestive) heart failure Status: Acute Problem Text: secondary to acute diastolic CHF and acute on chronic right heart failure due to untreated obstructive sleep apnea, obesity, hypoventilation syndrome 2-D echocardiogram reviewed. The Continue IV lasix , 2 liter fluid restriction, daily weights, and strict intake and output. oxygen supplementation Plan/VTE VTE Prophylaxis Ordered?: Yes VS, I&O, 24H, Fishbone Vital Signs/I&O Vital Signs Date Time Temp Pulse Resp B/P (MAP) Pulse Ox O2 Delivery O2 Flow Rate FiO2 06/16/19 07:34 99 Nasal Cannula 2.0 06/16/19 06:00 98.2 92 19 152/83 (106) I&O- Last 24 Hours up to 6 AM 06/16/19 06:00 Intake Total 1480 ml Output Total 2700 ml Balance -1220 ml HUMPHREY MARINELLI MD Jun 16, 2019 11:20
[2019-06-16 14:00] VITALS: BP 149/80
[2019-06-16] MEDS: RAMELTEON 8 MG TAB (ROZEREM) PO SCH ×3 (21:00→21:11)
[2019-06-16] MEDS: ACETAMINOPH W/CODEINE #3 TAB UD PO SCH (21:07)
[2019-06-16] MEDS: OMEPRAZOLE 20 MG CAP PO SCH (21:08)
[2019-06-16 22:00] VITALS: BP 142/76
[2019-06-17] MEDS: HEPARIN SOD (PORCINE) 5000 UNITS/ML VIAL SC SCH ×3 (00:16→17:00)
[2019-06-17] MEDS: FUROSEMIDE 20 MG/2 ML VIAL (J1940) IV SCH ×3 (00:17→15:39)
[2019-06-17] MEDS: SODIUM CHLORIDE 0.9% INJ 10 ML SYR IV SCH ×2 (05:56→17:42)
[2019-06-17] MEDS: LEVOTHYROXINE 88MCG TABLET (0.088 MG) PO SCH (05:56)
[2019-06-17] MEDS: SLF 3 ML SYR IV SCH ×3 (05:57→22:32)
[2019-06-17 06:00] VITALS: BP 139/68
[2019-06-17 06:03] LABS: HEMATOCRIT 39.7 % (36.0-47.0); HEMOGLOBIN 11.8 g/dl (12.0-15.5); MEAN CORPUSCULAR HEMOGLOBIN 27.1 pg (27.0-33.0); MEAN CORPUSCULAR HGB CONC 29.7 g/dl (32.0-36.5); MEAN CORPUSCULAR VOLUME 91.1 fl (80.0-96.0); PLATELET COUNT, AUTOMATED 293 10^3/uL (150-450); RED BLOOD COUNT 4.36 10^6/uL (4.00-5.40); WHITE BLOOD COUNT 4.8 10^3/uL (4.0-10.0)
[2019-06-17 06:30] LABS: BLOOD UREA NITROGEN 14 MG/DL (7-18); CALCIUM LEVEL 8.9 MG/DL (8.8-10.2); CARBON DIOXIDE LEVEL 34 MEQ/L (21-32); CHLORIDE LEVEL 98 MEQ/L (98-107); CREATININE FOR GFR 0.62 MG/DL (0.55-1.30); GLOMERULAR FILTRATION RATE > 60.0 (>39); GLUCOSE, FASTING 97 MG/DL (70-100); POTASSIUM SERUM 4.1 MEQ/L (3.5-5.1); SODIUM LEVEL 137 MEQ/L (136-145)
[2019-06-17] MEDS: IPRATROPIUM 0.5MG/ALBUTEROL 2.5MG INH SOL UD 3ML (DUONEB)(J7620) NEB SCH ×3 (07:34→19:40)
[2019-06-17 07:38] VITALS: O2SAT 99
[2019-06-17 09:00] VITALS: O2SAT 92
[2019-06-17] MEDS: NYSTATIN CREAM 15 GM TOP SCH (09:00)
[2019-06-17] MEDS: LACTOBACILLUS ACIDOPHILUS CAP (BACID) PO SCH (09:16)
[2019-06-17] MEDS: POTASSIUM CHLORIDE 10 MEQ SR TABLET PO SCH ×2 (09:16→22:29)
[2019-06-17] MEDS: ACETAMINOPHEN TAB 650MG DOSE (2X325MG) PO PRN (09:16)
[2019-06-17] MEDS: ANALGESIC BALM CRM 120 GM TOP SCH ×4 (09:17→22:31)
[2019-06-17] MEDS: NYSTATIN 100,000 UNITS/GM TOPICAL PWD 15 GM TOP SCH ×2 (09:18→22:32)
--- NOTE | 2019-06-17 11:15 | IPNPDOC ---
Subjective Date Seen The patient was seen on 06/17/19. Subjective Chief Complaint/HPI Patient comfortable, no distress. Awaiting either going home or to rehabilitation General: Denies: ROS Unobtainable, Chills, Night Sweats, Fatigue, Malaise, Normal Appetite, Other Symptoms ENT: Denies: Head Aches, Ear Pain, Dysphagia, Sinus Congestion, Post Nasal Drip, Sore Throat, Epistaxis, Other Symptoms Skin: Denies: Rash, Lesions, Jaundice, Bruising, Itching, Dry, Breakdown, Nail Changes, Other Pulmonary: Denies: Dyspnea, Cough, Pleuritic Chest Pain, Other Symptoms Cardiovascular: Denies: Chest Pain, Palpitations, Orthopnea, Paroxysmal Noc. Dyspnea, Edema, Lt Headedness, Other Symptoms Gastrointestinal: Denies: Nausea, Vomiting, Abdominal Pain, Diarrhea, Constipation, Melena, Hematochezia, Other Symptoms Musculoskeletal: Denies: Neck Pain, Back Pain, Shoulder Pain, Arm Pain, Hand Pain, Leg Pain, Foot Pain, Joint Pain, Muscle Pain, Spasms, Other Symptoms Neurological: Denies: Weakness, Numbness, Incoordination, Change in speech, Confusion, Seizures, Other Symptoms Objective Physical Examination Neck Exam: Positive: Supple Chest Exam: Positive: Normal air movement Heart Exam: Positive: Rate Normal, Normal S1, Normal S2 Abdomen Exam: Positive: Normal bowel sounds, Soft Extremity Exam: Positive: Normal pulses Skin Exam: Positive: Nl turgor and temperature Neuro Exam: Positive: Strength at 5/5 X4 ext, Sensation Intact Assessment /Plan Problems (1) Acute hypercapnic respiratory failure Status: Acute Problem Text: Acute on chronic hypercapnic respiratory failure due to obesity hyperventilation syndrome, morbid obesity bmi 74.3, untreated WAN, corpulmonale On Table top Bilevel ventilation with 20/14 support with 2 liters oxygen bleed in. will need outpt sleep study. Arranging patient outpatient sleep study appointment before discharge Patient will receive home oxygen on discharge Patient will be working with physical therapy and she wishes to go home, but they have recommended possible transfer to rehabilitation center . (2) WAN (obstructive sleep apnea) Status: Chronic Problem Text: Patient is on oxygen supplement and CPAP inpatient Will probably need outpatient sleep study (3) UTI (urinary tract infection) Problem Text: Urinary tract infection present at admission Ecoli pansensitive finished course of cefdinir. (4) Morbid obesity with BMI of 50.0-59.9, adult Status: Chronic (5) Hypothyroidism Status: Chronic Problem Text: Activity home meds (6) HTN (hypertension) Status: Chronic Problem Text: Under control Continue home meds (7) Debility Status: Acute Problem Text: Possible transfer to rehabilitation facility as per physical therapy recommendations (8) Acute diastolic (congestive) heart failure Status: Acute Problem Text: secondary to acute diastolic CHF and acute on chronic right heart failure due to untreated obstructive sleep apnea, obesity, hypoventilation syndrome 2-D echocardiogram reviewed. The Continue IV lasix , 2 liter fluid restriction, daily weights, and strict intake and output. oxygen supplementation Plan/VTE VTE Prophylaxis Ordered?: Yes VS, I&O, 24H, Fishbone Vital Signs/I&O Vital Signs Date Time Temp Pulse Resp B/P (MAP) Pulse Ox O2 Delivery O2 Flow Rate FiO2 06/17/19 09:00 92 Nasal Cannula 1.0 06/17/19 09:00 86 06/17/19 06:00 97.8 20 139/68 (91) I&O- Last 24 Hours up to 6 AM 06/17/19 06:00 Intake Total 990 ml Output Total 2150 ml Balance -1160 ml Laboratory Data 24H LABS Laboratory Tests 2 06/17/19 05:32: Nucleated Red Blood Cells % (auto) 0.0, Anion Gap 5L, Glomerular Filtration Rate > 60.0, Blood Urea Nitrogen 14, Creatinine 0.62, Sodium Level 137, Potassium Level 4.1, Chloride Level 98, Carbon Dioxide Level 34H, Calcium Level 8.9 CBC/BMP Laboratory Tests 06/17/19 05:32 Red Blood Count 4.36, Mean Corpuscular Volume 91.1, Mean Corpuscular Hemoglobin 27.1, Mean Corpuscular Hemoglobin Concent 29.7 L, Red Cell Distribution Width 1 8.4 H, Calcium Level 8.9 HUMPHREY MARINELLI MD Jun 17, 2019 11:15
[2019-06-17 13:12] VITALS: O2SAT 100
[2019-06-17 14:00] VITALS: BP_SYST 147; BP_SYST 98; BP_DIAS 62; BP_DIAS 79
[2019-06-17] MEDS: SODIUM CHLORIDE 0.9% INJ 10 ML SYR IV PRN (15:39)
[2019-06-17 22:00] VITALS: BP 151/78
[2019-06-17] MEDS: ACETAMINOPH W/CODEINE #3 TAB UD PO SCH (22:30)
[2019-06-17] MEDS: OMEPRAZOLE 20 MG CAP PO SCH (22:30)
[2019-06-17] MEDS: RAMELTEON 8 MG TAB (ROZEREM) PO SCH (22:34)
[2019-06-18] MEDS: FUROSEMIDE 20 MG/2 ML VIAL (J1940) IV SCH ×2 (02:26→09:33)
[2019-06-18] MEDS: HEPARIN SOD (PORCINE) 5000 UNITS/ML VIAL SC SCH ×3 (02:26→16:34)
[2019-06-18] MEDS: SODIUM CHLORIDE 0.9% INJ 10 ML SYR IV PRN (02:27)
[2019-06-18 06:00] VITALS: BP 143/86
[2019-06-18] MEDS: LEVOTHYROXINE 88MCG TABLET (0.088 MG) PO SCH (06:08)
[2019-06-18] MEDS: SLF 3 ML SYR IV SCH ×3 (06:09→21:06)
[2019-06-18] MEDS: SODIUM CHLORIDE 0.9% INJ 10 ML SYR IV SCH ×2 (06:09→17:37)
[2019-06-18] MEDS: IPRATROPIUM 0.5MG/ALBUTEROL 2.5MG INH SOL UD 3ML (DUONEB)(J7620) NEB SCH ×3 (07:11→19:42)
[2019-06-18 09:00] VITALS: O2SAT 91
[2019-06-18] MEDS: ASPIRIN 81 MG ENTERIC TAB PO SCH (09:32)
[2019-06-18] MEDS: LACTOBACILLUS ACIDOPHILUS CAP (BACID) PO SCH (09:32)
[2019-06-18] MEDS: POTASSIUM CHLORIDE 10 MEQ SR TABLET PO SCH ×2 (09:32→21:03)
[2019-06-18] MEDS: ANALGESIC BALM CRM 120 GM TOP SCH ×4 (09:34→21:03)
[2019-06-18] MEDS: NYSTATIN 100,000 UNITS/GM TOPICAL PWD 15 GM TOP SCH ×2 (09:34→21:03)
[2019-06-18] MEDS: MUPIROCIN 2% OINT 22 GM TUBE TOP SCH (09:38)
[2019-06-18] MEDS: NYSTATIN CREAM 15 GM TOP SCH (09:38)
[2019-06-18] MEDS: ACETAMINOPHEN TAB 650MG DOSE (2X325MG) PO PRN (09:49)
--- NOTE | 2019-06-18 11:07 | IPNPDOC ---
Subjective Date Seen The patient was seen on 06/18/19. Subjective Chief Complaint/HPI Patient complaining of frequent urination with Lasix was to be continued to by mouth also scheduled for sleep apnea test on Friday General: Denies: ROS Unobtainable, Chills, Night Sweats, Fatigue, Malaise, Normal Appetite, Other Symptoms ENT: Denies: Head Aches, Ear Pain, Dysphagia, Sinus Congestion, Post Nasal Drip, Sore Throat, Epistaxis, Other Symptoms Skin: Denies: Rash, Lesions, Jaundice, Bruising, Itching, Dry, Breakdown, Nail Changes, Other Pulmonary: Denies: Dyspnea, Cough, Pleuritic Chest Pain, Other Symptoms Cardiovascular: Denies: Chest Pain, Palpitations, Orthopnea, Paroxysmal Noc. Dyspnea, Edema, Lt Headedness, Other Symptoms Gastrointestinal: Denies: Nausea, Vomiting, Abdominal Pain, Diarrhea, Constipation, Melena, Hematochezia, Other Symptoms Musculoskeletal: Denies: Neck Pain, Back Pain, Shoulder Pain, Arm Pain, Hand Pain, Leg Pain, Foot Pain, Joint Pain, Muscle Pain, Spasms, Other Symptoms Neurological: Denies: Weakness, Numbness, Incoordination, Change in speech, Confusion, Seizures, Other Symptoms Objective Physical Examination Neck Exam: Positive: Supple Chest Exam: Positive: Normal air movement Heart Exam: Positive: Rate Normal, Normal S1, Normal S2 Abdomen Exam: Positive: Normal bowel sounds, Soft Extremity Exam: Positive: Normal pulses Skin Exam: Positive: Nl turgor and temperature Neuro Exam: Positive: Strength at 5/5 X4 ext, Sensation Intact Assessment /Plan Problems (1) Acute hypercapnic respiratory failure Status: Acute Problem Text: Acute on chronic hypercapnic respiratory failure due to obesity hyperventilation syndrome, morbid obesity bmi 74.3, untreated WAN, corpulmonale On Table top Bilevel ventilation with 20/14 support with 2 liters oxygen bleed in. Patient will receive home oxygen on discharge Patient will be working with physical therapy and she wishes to go home, but they have recommended possible transfer to rehabilitation center Patient will be discharged on Friday. for Sleep apnea Lab directly and from there. She will possibly will go home Continue present medications . (2) WAN (obstructive sleep apnea) Status: Chronic Problem Text: Patient is on oxygen supplement and CPAP inpatient Will probably need outpatient sleep study (3) UTI (urinary tract infection) Problem Text: Urinary tract infection present at admission Ecoli pansensitive finished course of cefdinir. (4) Morbid obesity with BMI of 50.0-59.9, adult Status: Chronic (5) Hypothyroidism Status: Chronic Problem Text: Activity home meds (6) HTN (hypertension) Status: Chronic Problem Text: Under control Continue home meds (7) Debility Status: Acute Problem Text: Possible transfer to rehabilitation facility as per physical therapy recommendations (8) Acute diastolic (congestive) heart failure Status: Acute Problem Text: secondary to acute diastolic CHF and acute on chronic right heart failure due to untreated obstructive sleep apnea, obesity, hypoventilation syndrome 2-D echocardiogram reviewed. The Change Lasix to 40 mg by mouth daily liter fluid restriction, daily weights, and strict intake and output. oxygen supplementation Plan/VTE VTE Prophylaxis Ordered?: Yes VS, I&O, 24H, Fishbone Vital Signs/I&O Vital Signs Date Time Temp Pulse Resp B/P (MAP) Pulse Ox O2 Delivery O2 Flow Rate FiO2 06/18/19 06:00 97.5 79 143/86 (105) 20 06/18/19 00:00 2.0 06/17/19 22:00 83 06/17/19 13:12 Nasal Cannula I&O- Last 24 Hours up to 6 AM 06/18/19 06:00 Intake Total 1725 ml Output Total 2775 ml Balance -1050 ml HUMPHREY MARINELLI MD Jun 18, 2019 11:07
[2019-06-18 13:09] VITALS: O2SAT 99
[2019-06-18 14:00] VITALS: BP 150/80
[2019-06-18] MEDS: RAMELTEON 8 MG TAB (ROZEREM) PO SCH (21:03)
[2019-06-18] MEDS: OMEPRAZOLE 20 MG CAP PO SCH (21:04)
[2019-06-18] MEDS: ACETAMINOPH W/CODEINE #3 TAB UD PO SCH ×2 (21:06→21:50)
[2019-06-18 22:00] VITALS: BP 147/78
[2019-06-19] MEDS: HEPARIN SOD (PORCINE) 5000 UNITS/ML VIAL SC SCH ×3 (02:05→17:12)
[2019-06-19] MEDS: SLF 3 ML SYR IV SCH ×2 (05:35→15:09)
[2019-06-19 05:47] VITALS: O2SAT 90
[2019-06-19] MEDS: SODIUM CHLORIDE 0.9% INJ 10 ML SYR IV SCH ×2 (05:49→17:13)
[2019-06-19] MEDS: LEVOTHYROXINE 88MCG TABLET (0.088 MG) PO SCH (05:49)
[2019-06-19 06:00] VITALS: BP 138/70
[2019-06-19] MEDS: IPRATROPIUM 0.5MG/ALBUTEROL 2.5MG INH SOL UD 3ML (DUONEB)(J7620) NEB SCH ×3 (07:12→18:20)
[2019-06-19] MEDS: ANALGESIC BALM CRM 120 GM TOP SCH ×4 (09:00→21:22)
[2019-06-19] MEDS: POTASSIUM CHLORIDE 10 MEQ SR TABLET PO SCH ×2 (09:51→21:21)
[2019-06-19] MEDS: NYSTATIN CREAM 15 GM TOP SCH (09:52)
[2019-06-19] MEDS: NYSTATIN 100,000 UNITS/GM TOPICAL PWD 15 GM TOP SCH ×2 (09:53→21:22)
[2019-06-19] MEDS: LACTOBACILLUS ACIDOPHILUS CAP (BACID) PO SCH (09:53)
[2019-06-19 09:58] VITALS: BP 137/71
[2019-06-19] MEDS: FUROSEMIDE 40 MG TAB PO SCH (09:58)
--- NOTE | 2019-06-19 11:03 | IPNPDOC ---
Subjective Date Seen The patient was seen on 06/19/19. Subjective Chief Complaint/HPI No new complaints, awaiting until Friday when she can be discharged to sleep lab General: Denies: ROS Unobtainable, Chills, Night Sweats, Fatigue, Malaise, Normal Appetite, Other Symptoms Constitutional: Denies: Chills, Fever, Malaise, Night Sweats, Weakness, Fatigue, Weight Loss, Lethargy, Other Skin: Denies: Rash, Lesions, Jaundice, Bruising, Itching, Dry, Breakdown, Nail Changes, Other Pulmonary: Denies: Dyspnea, Cough, Pleuritic Chest Pain, Other Symptoms Cardiovascular: Denies: Chest Pain, Palpitations, Orthopnea, Paroxysmal Noc. Dyspnea, Edema, Lt Headedness, Other Symptoms Gastrointestinal: Denies: Nausea, Vomiting, Abdominal Pain, Diarrhea, Constipation, Melena, Hematochezia, Other Symptoms Musculoskeletal: Denies: Neck Pain, Back Pain, Shoulder Pain, Arm Pain, Hand Pain, Leg Pain, Foot Pain, Joint Pain, Muscle Pain, Spasms, Other Symptoms Neurological: Denies: Weakness, Numbness, Incoordination, Change in speech, Confusion, Seizures, Other Symptoms Objective Physical Examination Neck Exam: Positive: Supple Chest Exam: Positive: Normal air movement Heart Exam: Positive: Rate Normal, Normal S1, Normal S2 Abdomen Exam: Positive: Normal bowel sounds, Soft Extremity Exam: Positive: Normal pulses Skin Exam: Positive: Nl turgor and temperature Neuro Exam: Positive: Strength at 5/5 X4 ext, Sensation Intact Assessment /Plan Problems (1) Acute hypercapnic respiratory failure Status: Acute Problem Text: Acute on chronic hypercapnic respiratory failure due to obesity hyperventilation syndrome, morbid obesity bmi 74.3, untreated WAN, corpulmonale On Table top Bilevel ventilation with 20/14 support with 2 liters oxygen bleed in. Patient will receive home oxygen on discharge Patient will be working with physical therapy and she wishes to go home, but they have recommended possible transfer to rehabilitation center Patient will be discharged on Friday. for Sleep apnea Lab directly and from there She will possibly will go home Continue present care. No new adjustment in the medications . (2) WAN (obstructive sleep apnea) Status: Chronic Problem Text: Patient is on oxygen supplement and CPAP inpatient Will probably need outpatient sleep study (3) UTI (urinary tract infection) Problem Text: Urinary tract infection present at admission Ecoli pansensitive finished course of cefdinir. (4) Morbid obesity with BMI of 50.0-59.9, adult Status: Chronic (5) Hypothyroidism Status: Chronic Problem Text: Activity home meds (6) HTN (hypertension) Status: Chronic Problem Text: Under control Continue home meds (7) Debility Status: Acute Problem Text: Possible transfer to rehabilitation facility as per physical therapy recommendations (8) Acute diastolic (congestive) heart failure Status: Acute Problem Text: secondary to acute diastolic CHF and acute on chronic right hear t failure due to untreated obstructive sleep apnea, obesity, hypoventilation syndrome 2-D echocardiogram reviewed. The Change Lasix to 40 mg by mouth daily liter fluid restriction, daily weights, and strict intake and output. oxygen supplementation Plan/VTE VTE Prophylaxis Ordered?: Yes VS, I&O, 24H, Fishbone Vital Signs/I&O Vital Signs Date Time Temp Pulse Resp B/P (MAP) Pulse Ox O2 Delivery O2 Flow Rate FiO2 06/19/19 10:42 86 92 NIPPV (BIPAP/CPAP) 1.0 06/19/19 09:58 137/71 (93) 06/19/19 06:00 97.4 19 I&O- Last 24 Hours up to 6 AM 06/19/19 05:59 Intake Total 475 ml Output Total 1400 ml Balance -925 ml HUMPHREY MARINELLI MD Jun 19, 2019 11:03
[2019-06-19 14:00] VITALS: BP 148/81
[2019-06-19] MEDS: RAMELTEON 8 MG TAB (ROZEREM) PO SCH (21:20)
[2019-06-19] MEDS: OMEPRAZOLE 20 MG CAP PO SCH (21:21)
[2019-06-19 22:00] VITALS: BP 135/71
[2019-06-19] MEDS: ACETAMINOPH W/CODEINE #3 TAB UD PO SCH (22:10)
[2019-06-20] MEDS: HEPARIN SOD (PORCINE) 5000 UNITS/ML VIAL SC SCH ×3 (00:59→17:53)
[2019-06-20] MEDS: LEVOTHYROXINE 88MCG TABLET (0.088 MG) PO SCH (05:34)
[2019-06-20] MEDS: SODIUM CHLORIDE 0.9% INJ 10 ML SYR IV SCH ×2 (05:35→17:54)
[2019-06-20 06:00] VITALS: BP 132/69
[2019-06-20] MEDS: IPRATROPIUM 0.5MG/ALBUTEROL 2.5MG INH SOL UD 3ML (DUONEB)(J7620) NEB SCH ×3 (07:31→20:00)
[2019-06-20] MEDS: ASPIRIN 81 MG ENTERIC TAB PO SCH (10:09)
[2019-06-20] MEDS: POTASSIUM CHLORIDE 10 MEQ SR TABLET PO SCH ×2 (10:09→20:39)
[2019-06-20] MEDS: LACTOBACILLUS ACIDOPHILUS CAP (BACID) PO SCH (10:09)
[2019-06-20] MEDS: FUROSEMIDE 40 MG TAB PO SCH (10:10)
[2019-06-20] MEDS: MUPIROCIN 2% OINT 22 GM TUBE TOP SCH (10:14)
[2019-06-20] MEDS: NYSTATIN 100,000 UNITS/GM TOPICAL PWD 15 GM TOP SCH ×2 (10:15→20:42)
[2019-06-20] MEDS: NYSTATIN CREAM 15 GM TOP SCH (10:16)
[2019-06-20] MEDS: ANALGESIC BALM CRM 120 GM TOP SCH ×4 (10:18→20:41)
--- NOTE | 2019-06-20 10:54 | IPNPDOC ---
Subjective Date Seen The patient was seen on 06/20/19. Subjective Chief Complaint/HPI Patient sleeping comfortably in no apparent distress. Easily arousable with the vocal stimuli, offers no new complaints General: Denies: ROS Unobtainable, Chills, Night Sweats, Fatigue, Malaise, Normal Appetite, Other Symptoms Constitutional: Denies: Chills, Fever, Malaise, Night Sweats, Weakness, Fatigue, Weight Loss, Lethargy, Other Pulmonary: Denies: Dyspnea, Cough, Pleuritic Chest Pain, Other Symptoms Cardiovascular: Denies: Chest Pain, Palpitations, Orthopnea, Paroxysmal Noc. Dyspnea, Edema, Lt Headedness, Other Symptoms Gastrointestinal: Denies: Nausea, Vomiting, Abdominal Pain, Diarrhea, Constipation, Melena, Hematochezia, Other Symptoms Genitourinary: Denies: Dysuria, Frequency, Incontinence, Hematuria, Retention, Other Symptoms Musculoskeletal: Denies: Neck Pain, Back Pain, Shoulder Pain, Arm Pain, Hand Pain, Leg Pain, Foot Pain, Joint Pain, Muscle Pain, Spasms, Other Symptoms Neurological: Denies: Weakness, Numbness, Incoordination, Change in speech, Confusion, Seizures, Other Symptoms Objective Physical Examination Neck Exam: Positive: Supple Chest Exam: Positive: Normal air movement Heart Exam: Positive: Rate Normal, Normal S1, Normal S2 Abdomen Exam: Positive: Normal bowel sounds, Soft Extremity Exam: Positive: Normal pulses Skin Exam: Positive: Nl turgor and temperature Neuro Exam: Positive: Strength at 5/5 X4 ext, Sensation Intact Assessment /Plan Problems (1) Acute hypercapnic respiratory failure Status: Acute Problem Text: Acute on chronic hypercapnic respiratory failure due to obesity hyperventilation syndrome, morbid obesity bmi 74.3, untreated WAN, corpulmonale On Table top Bilevel ventilation with 20/14 support with 2 liters oxygen bleed in. Patient will receive home oxygen on discharge Patient will be working with physical therapy and she wishes to go home, but they have recommended possible transfer to rehabilitation center Patient will be discharged on Friday. for Sleep apnea Lab directly and from there She will possibly will go home from there Continue present care. No new adjustment in the medications . (2) WAN (obstructive sleep apnea) Status: Chronic Problem Text: Patient is on oxygen supplement and CPAP inpatient Is scheduled for sleep apnea test on Friday on discharge from this hospital (3) UTI (urinary tract infection) Problem Text: Urinary tract infection present at admission Ecoli pansensitive finished course of cefdinir. (4) Morbid obesity with BMI of 50.0-59.9, adult Status: Chronic (5) Hypothyroidism Status: Chronic Problem Text: Activity home meds (6) HTN (hypertension) Status: Chronic Problem Text: Under control Continue home meds (7) Debility Status: Acute Problem Text: Possible transfer to rehabilitation facility as per physical therapy recommendations (8) Acute diastolic (congestive) heart failure Status: Acute Problem Text: secondary to acute diastolic CHF and acute on chronic right heart failure due to untreated obstructive sleep apnea, obesity, hypoventilation syndrome 2-D echocardiogram reviewed. The Change Lasix to 40 mg by mouth daily liter fluid restriction, daily weights, and strict intake and output. oxygen supplementation Plan/VTE VTE Prophylaxis Ordered?: Yes VS, I&O, 24H, Fishbone Vital Signs/I&O Vital Signs Date Time Temp Pulse Resp B/P (MAP) Pulse Ox O2 Delivery O2 Flow Rate FiO2 06/20/19 06:00 96.4 86 20 132/69 (90) 94 1.0 06/20/19 03:27 NIPPV (BIPAP/CPAP) I&O- Last 24 Hours up to 6 AM 06/20/19 06:00 Intake Total 830 ml Output Total 900 ml Balance -70 ml HUMPHREY MARINELLI MD Jun 20, 2019 10:54
--- NOTE | 2019-06-20 12:08 | DS.PDOC ---
Discharge Summary General Date of Admission Jun 04, 2019 at 10:35 Date of Discharge 06/22/19 Attending Physician: HUMPHREY MARINELLI MD Discharge Summary PROCEDURES PERFORMED DURING STAY: None. ADMITTING DIAGNOSES: 1. UTI, acute on chronic hypercarbic respiratory failure. DISCHARGE DIAGNOSES: 1. UTI, obstructive sleep apnea, morbid obesity, acute diastolic heart failure, acute on chronic hypercarbic respiratory failure. COMPLICATIONS/CHIEF COMPLAINT: UTI. HISTORY OF PRESENT ILLNESS: HISTORY OF PRESENT ILLNESS: Patient is a 74 year old female presenting with chief complaint of worsening generalized weakness for the past 4 days. While she has limited mobility, she states at baseline she is able to move from her chair to the kitchen and back without difficulty. Now, however, she is only able to go from her chair to her bedside commode (3 feet away) and only with great difficulty. She presented to the emergency department today after attempting to sit on her commode her leg gave out, she fell to her knees, and and required 7 fire personnel to assist patient onto stretcher. Of note, while in transit the patients pulse ox was 88% but once she was sat up it improved to 94%. She again had a desaturation in the [facility] ED to 89% and after nasal cannula administration this improved. She states that beyond her generalized weakness she has had burning on urination the last 4 days with accompanying chills, increased lethargy, and increased inhaler use due to difficulty breathing. 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 Presently she admits to some ongoing R-knee pain and stiffness since her fall but acknowledges no other complaints at this time. . HOSPITAL COURSE: Acute on chronic hypercapnic respiratory failure due to obesity hyperventilation syndrome, morbid obesity bmi 74.3, untreated WAN, corpulmonale On Table top Bilevel ventilation with 20/14 support with 2 liters oxygen Patient will receive home oxygen on discharge Patient will be working with physical therapy and she wishes to go home, but they have recommended possible transfer to rehabilitation center Patient will be discharged on Friday. for Sleep apnea Lab directly and from there She will possibly will go home from there Continue present care. No new adjustment in the medications Patient is on oxygen supplement and CPAP inpatient Is scheduled for sleep apnea test on Friday on discharge from this hospital Urinary tract infection present at admission Ecoli pansensitive finished course of cefdinir. Acute diastolic CHF and acute on chronic right heart failure due to untreated obstructive sleep apnea, obesity, hypoventilation syndrome 2-D echocardiogram reviewed. The Change Lasix to 40 mg by mouth daily liter fluid restriction, daily weights, and strict intake and output were observed Patient is on oxygen supplementation . DISCHARGE MEDICATIONS: Please see below. ALLERGIES: Please see below. PHYSICAL EXAMINATION ON DISCHARGE: VITAL SIGNS: Please see below. GENERAL: Within normal limits HEENT: PERRLA. Extraocular muscles intact NECK: Supple CARDIOVASCULAR EXAMINATION: S1, S2, regular RESPIRATORY EXAMINATION: Diminished breath sounds bilaterally but no wheezing ABDOMINAL EXAMINATION: , Soft, nontender, bowel sounds present EXTREMITIES: , Bilateral pulses positive SKIN: Within normal limits NEUROLOGICAL EXAMINATION: To focal motor sensory deficit PSYCHIATRIC EXAMINATION: Normal LABORATORY DATA: Please see below. IMAGING: Chest x-ray report:Bibasilar plate-like atelectasis. No definite infiltrate. Prominent heart. PROGNOSIS: [Good ACTIVITY: As tolerated. DIET: As tolerated DISCHARGE PLAN: Patient will be discharged to outpatient sleep apnea. Lab and from there. She'll go home DISPOSITION: . Discharged to outpatient sleep apnea. Lab and from there to home DISCHARGE INSTRUCTIONS: 1. As per discharge instructions. ITEMS TO FOLLOWUP ON ON OUTPATIENT: 1. Follow with pulmonary in one week. DISCHARGE CONDITION: Stable. TIME SPENT ON DISCHARGE: 45 minutes. Vital Signs/I&Os Vital Signs Date Time Temp Pulse Resp B/P (MAP) Pulse Ox O2 Delivery O2 Flow Rate FiO2 06/20/19 06:00 96.4 86 20 132/69 (90) 94 1.0 06/20/19 03:27 NIPPV (BIPAP/CPAP) I&O- Last 24 Hours up to 6 AM 06/20/19 06:00 Intake Total 830 ml Output Total 900 ml Balance -70 ml Discharge Medications Scheduled Aspirin (Aspirin EC) 81 Mg Tabec, 81 MG PO Q2D, (Reported) Atenolol (Atenolol) 50 Mg Tab, 50 MG PO DAILY, (Reported) Collagenase Clostridium Hist. (Santyl) 250 Unit/Gm Oin, 1 APPLIC TOP Q2D, (Reported) USES ON RIGHT LEG Ergocalciferol (Vitamin D2) (Vitamin D2) 50,000 Unit Cap, 50,000 UNIT PO QWEEK, (Reported) SATURDAYS Esomeprazole Magnesium (Nexium 24Hr) 20 Mg Capsule.dr, 40 MG PO QHS, (Reported) Furosemide (Furosemide) 40 Mg Tab, 20 MG PO DAILY, (Reported) PT STATES MED MAKES HER ELECTROLYTES GO CRAZY. SHE DOESN'T TAKE MEDICATION RELIGIOUSLY Lactobacillus Acidophilus (Probiotic) 1 Each Capsule, 1 CAP PO DAILY, (Reported) Levothyroxine Sodium (Synthroid) 175 Mcg Tablet, 175 MCG PO DAILY, (Reported) PT TAKES BRAND NAME SYNTHROID Lutein/Zeaxanthin (Lutein-Zeaxanthin 20-1 mg Sfgl) 1 Each Capsule, 1 CAP PO DAILY, (Reported) Melatonin (Melatonin) 5 Mg Tab.rapdis, 15 MG PO QHS, (Reported) Multivitamin (Multivitamins) 1 Each Capsule, 1 CAP PO DAILY, (Reported) Mycophenolate Mofetil (Mycophenolate Mofetil) 500 Mg Tab, 1,500 MG PO BID, (Reported) TAKES IN MORNING AND AT LUNCHTIME Nystatin (Nystatin Powder) 15 Gm Powder, 1 APLCT TOP BID, (Reported) APPLY TO CREASES ON LEGS Nystatin (Nystatin) 15 Gm Cream..g., 1 APPLIC TOP DAILY, (Reported) USES ON LEGS Phenazopyridine HCl (Azo Urinary Pain Relief) 95 Mg Tablet, 95 MG PO TID, (Reported) Tacrolimus (Protopic) 0.1 % Oin, 1 APPLIC EXT Q2D, (Reported) USES ON LEGS AT NIGHT Scheduled PRN Acetaminophen with Codeine (Acetaminophen-Cod #3 Tablet) 1 Each Tab, 1 TAB PO BID PRN for PAIN, (Reported) Albuterol Sulfate (Ventolin Hfa) 108 Mcg/Act Aer, 2 PUFFS INH Q4H PRN for SHORTNESS OF BREATH, (Reported) Loperamide HCl (Loperamide) 2 Mg Tablet, 1 MG PO DAILY PRN for DIARRHEA, (Reported) Allergies Coded Allergies: Penicillins (Verified Allergy, Intermediate, 06/03/19) localized reaction at injection site TAPE (Verified Allergy, Intermediate, PLASTIC TAPE - RASH, 03/05/17) bee venom protein (honey bee) (Verified Allergy, Intermediate, 06/03/19) localized swelling at site sulfamethoxazole (Verified Allergy, Unknown, 06/03/19) HUMPHREY MARINELLI MD Jun 20, 2019 12:08
[2019-06-20 14:00] VITALS: BP 148/81
[2019-06-20] MEDS: ACETAMINOPHEN TAB 650MG DOSE (2X325MG) PO PRN (16:24)
[2019-06-20] MEDS: OMEPRAZOLE 20 MG CAP PO SCH (20:37)
[2019-06-20] MEDS: RAMELTEON 8 MG TAB (ROZEREM) PO SCH (20:38)
[2019-06-20] MEDS: ACETAMINOPH W/CODEINE #3 TAB UD PO SCH (20:38)
[2019-06-20 22:00] VITALS: BP 147/83
[2019-06-21] MEDS: HEPARIN SOD (PORCINE) 5000 UNITS/ML VIAL SC SCH ×3 (01:00→18:08)
[2019-06-21] MEDS: LEVOTHYROXINE 88MCG TABLET (0.088 MG) PO SCH (05:35)
[2019-06-21] MEDS: SODIUM CHLORIDE 0.9% INJ 10 ML SYR IV SCH ×2 (05:36→18:08)
[2019-06-21 06:00] VITALS: BP 131/72
[2019-06-21 06:05] LABS: HEMATOCRIT 39.3 % (36.0-47.0); HEMOGLOBIN 11.6 g/dl (12.0-15.5); MEAN CORPUSCULAR HEMOGLOBIN 26.9 pg (27.0-33.0); MEAN CORPUSCULAR HGB CONC 29.5 g/dl (32.0-36.5); MEAN CORPUSCULAR VOLUME 91.2 fl (80.0-96.0); PLATELET COUNT, AUTOMATED 308 10^3/uL (150-450); RED BLOOD COUNT 4.31 10^6/uL (4.00-5.40)
[2019-06-21 06:27] LABS: BLOOD UREA NITROGEN 14 MG/DL (7-18); CALCIUM LEVEL 9.2 MG/DL (8.8-10.2); CARBON DIOXIDE LEVEL 32 MEQ/L (21-32); CHLORIDE LEVEL 101 MEQ/L (98-107); CREATININE FOR GFR 0.55 MG/DL (0.55-1.30); GLOMERULAR FILTRATION RATE > 60.0 (>39); GLUCOSE, FASTING 103 MG/DL (70-100); POTASSIUM SERUM 4.3 MEQ/L (3.5-5.1); SODIUM LEVEL 139 MEQ/L (136-145)
[2019-06-21] MEDS: IPRATROPIUM 0.5MG/ALBUTEROL 2.5MG INH SOL UD 3ML (DUONEB)(J7620) NEB SCH ×3 (07:53→20:00)
[2019-06-21] MEDS: FUROSEMIDE 40 MG TAB PO SCH (09:57)
[2019-06-21] MEDS: LACTOBACILLUS ACIDOPHILUS CAP (BACID) PO SCH (09:57)
[2019-06-21] MEDS: NYSTATIN CREAM 15 GM TOP SCH (09:58)
[2019-06-21] MEDS: POTASSIUM CHLORIDE 10 MEQ SR TABLET PO SCH ×2 (09:58→22:02)
[2019-06-21] MEDS: NYSTATIN 100,000 UNITS/GM TOPICAL PWD 15 GM TOP SCH ×2 (09:59→22:04)
[2019-06-21] MEDS: ANALGESIC BALM CRM 120 GM TOP SCH ×4 (09:59→22:03)
--- NOTE | 2019-06-21 10:33 | IPNPDOC ---
Subjective Date Seen The patient was seen on 06/21/19. Subjective Chief Complaint/HPI Patient is comfortable in no distress has been participating with physical therapy General: Denies: ROS Unobtainable, Chills, Night Sweats, Fatigue, Malaise, Normal Appetite, Other Symptoms Constitutional: Denies: Chills, Fever, Malaise, Night Sweats, Weakness, Fatigue, Weight Loss, Lethargy, Other Pulmonary: Denies: Dyspnea, Cough, Pleuritic Chest Pain, Other Symptoms Gastrointestinal: Denies: Nausea, Vomiting, Abdominal Pain, Diarrhea, Constipation, Melena, Hematochezia, Other Symptoms Endocrine: Denies: Polydipsia, Polyphagia, Polyuria, Heat Intolerance, Cold Intolerance, Other Endocrine Sx Musculoskeletal: Denies: Neck Pain, Back Pain, Shoulder Pain, Arm Pain, Hand Pain, Leg Pain, Foot Pain, Joint Pain, Muscle Pain, Spasms, Other Symptoms Neurological: Denies: Weakness, Numbness, Incoordination, Change in speech, Confusion, Seizures, Other Symptoms Objective Physical Examination Neck Exam: Positive: Supple Chest Exam: Positive: Normal air movement Heart Exam: Positive: Rate Normal, Normal S1, Normal S2 Abdomen Exam: Positive: Normal bowel sounds, Soft Extremity Exam: Positive: Normal pulses Skin Exam: Positive: Nl turgor and temperature Neuro Exam: Positive: Strength at 5/5 X4 ext, Sensation Intact Assessment /Plan Problems (1) Acute hypercapnic respiratory failure Status: Resolved Problem Text: Acute on chronic hypercapnic respiratory failure due to obesity hyperventilation syndrome, morbid obesity bmi 74.3, untreated WAN, corpulmonale On Table top Bilevel ventilation with 20/14 support with 2 liters oxygen bleed in. Patient will receive home oxygen on discharge Patient is participating very well with physical therapy and hopefully be discharged home after her sleep apnea studies done Patient will be discharged on Friday to Sleep apnea Lab directly and from there She will possibly will go home from there Continue present care. No new adjustment in the medications . (2) WAN (obstructive sleep apnea) Status: Chronic Problem Text: Patient is on oxygen supplement and CPAP inpatient Is scheduled for sleep apnea test on Friday on discharge from this hospital (3) UTI (urinary tract infection) Status: Resolved Problem Text: Urinary tract infection present at admission Ecoli pansensitive finished course of cefdinir. (4) Morbid obesity with BMI of 50.0-59.9, adult Status: Chronic (5) Hypothyroidism Status: Chronic Problem Text: Activity home meds (6) HTN (hypertension) Status: Chronic Problem Text: Under control Continue home meds (7) Debility Status: Acute Problem Text: Possible transfer to rehabilitation facility as per physical therapy recommendations (8) Acute diastolic (congestive) heart failure Status: Chronic Problem Text: secondary to acute diastolic CHF and acute on chronic right heart failure due to untreated obstructive sleep apnea, obesity, hypoventilation syndrome 2-D echocardiogram reviewed. The Change Lasix to 40 mg by mouth daily liter fluid restriction, daily weights, and strict intake and output. oxygen supplementation Plan/VTE VTE Prophylaxis Ordered?: Yes VS, I&O, 24H, Fishbone Vital Signs/I&O Vital Signs Date Time Temp Pulse Resp B/P (MAP) Pulse Ox O2 Delivery O2 Flow Rate FiO2 06/21/19 06:00 98.3 89 19 131/72 (91) 83 06/21/19 00:00 1.0 06/20/19 21:00 Nasal Cannula 06/20/19 20:38 30 I&O- Last 24 Hours up to 6 AM 06/21/19 06:00 Intake Total 795 ml Output Total 550 ml Balance 245 ml Laboratory Data 24H LABS Laboratory Tests 2 06/21/19 05:37: Nucleated Red Blood Cells % (auto) 0.0, Anion Gap 6L, Glomerular Filtration Rate > 60.0, Blood Urea Nitrogen 14, Creatinine 0.55, Sodium Level 139, Potassium Level 4.3, Chloride Level 101, Carbon Dioxide Level 32, Calcium Level 9.2 CBC/BMP Laboratory Tests 06/21/19 05:37 Red Blood Count 4.31, Mean Corpuscular Volume 91.2, Mean Corpuscular Hemoglobin 26.9 L, Mean Corpuscular Hemoglobin Concent 29.5 L, Red Cell Distribution Width 18.3 H, Calcium Level 9.2 HUMPHREY MARINELLI MD Jun 21, 2019 10:32
[2019-06-21 14:00] VITALS: BP 116/76
[2019-06-21 22:00] VITALS: BP 148/76
[2019-06-21] MEDS: RAMELTEON 8 MG TAB (ROZEREM) PO SCH (22:02)
[2019-06-21] MEDS: OMEPRAZOLE 20 MG CAP PO SCH (22:02)
[2019-06-21] MEDS: ACETAMINOPH W/CODEINE #3 TAB UD PO SCH (22:03)
[2019-06-22] MEDS: HEPARIN SOD (PORCINE) 5000 UNITS/ML VIAL SC SCH ×3 (01:00→17:00)
[2019-06-22] MEDS: LEVOTHYROXINE 88MCG TABLET (0.088 MG) PO SCH (05:40)
[2019-06-22] MEDS: SODIUM CHLORIDE 0.9% INJ 10 ML SYR IV SCH (05:40)
[2019-06-22 06:00] VITALS: BP 153/69
[2019-06-22] MEDS: IPRATROPIUM 0.5MG/ALBUTEROL 2.5MG INH SOL UD 3ML (DUONEB)(J7620) NEB SCH ×2 (07:32→13:59)
[2019-06-22] MEDS: POTASSIUM CHLORIDE 10 MEQ SR TABLET PO SCH (09:34)
[2019-06-22] MEDS: ASPIRIN 81 MG ENTERIC TAB PO SCH (09:34)
[2019-06-22] MEDS: LACTOBACILLUS ACIDOPHILUS CAP (BACID) PO SCH (09:34)
[2019-06-22] MEDS: FUROSEMIDE 40 MG TAB PO SCH (09:34)
[2019-06-22] MEDS: MUPIROCIN 2% OINT 22 GM TUBE TOP SCH (09:35)
[2019-06-22] MEDS: ANALGESIC BALM CRM 120 GM TOP SCH ×2 (09:36→15:30)
[2019-06-22] MEDS: NYSTATIN 100,000 UNITS/GM TOPICAL PWD 15 GM TOP SCH (09:36)
[2019-06-22] MEDS: NYSTATIN CREAM 15 GM TOP SCH (09:36)
[2019-06-22] MEDS ORDERED: FURO40TA2 PO (11:51)
[2019-06-22] MEDS ORDERED: FLUBLOK(EGG FREE)(QUAD)INFLUENZA VACC 0.5ML SYRINGE (90682)18YRS&OLDER IM ONE (13:00)
[2019-06-22 14:00] VITALS: BP 141/88
--- NOTE | 2019-06-22 16:26 | IPNPDOC ---
Text Note Date of Service The patient was seen on 06/22/19. NOTE Subjective: Patient was seen and examined at the bedside. . Currently, patient reports that she feels fine. She denies any chest pain, shortness breath or palpitations. Denies any nausea, vomiting, abdominal pain, constipation, diarrhea, or urinary discomfort. Objective: Vitals (See below) General: Lying in bed, no acute distress, comfortable, AAOx3 HEENT: NC, AT CVS: RRR, +S1S2 Lungs: Fair air entry b/l, -w/r/r Abdomen: Soft, ND, NT, morbid obesity Extremities: - Edema, - Calf tenderness Assessment and plan: Acute hypercapnic respiratory failure WAN on CPAP UTI Morbid obesity Hypothyroidism HTN Functional debility Acute diastolic CHF GI prophylaxis DVT prophylaxis Plan: - Clinically patient has improved significantly - Has cleared PT / OT - Schedule outpatient follow up visits - Advised to remain compliant with treatment plan and medications - Advised to return to the emergency room if she experiences any problems - Patient has been scheduled to go to sleep lab today VS,Yenny, I+O VS, Yenny, I+O Vital Signs Date Time Temp Pulse Resp B/P (MAP) Pulse Ox O2 Delivery O2 Flow Rate FiO2 06/22/19 14:00 97.2 74 20 141/88 (105) 100 1.0 06/22/19 01:32 NIPPV (BIPAP/CPAP) 06/21/19 22:03 30 I&O- Last 24 Hours up to 6 AM 06/22/19 06:00 Intake Total 720 ml Output Total 1000 ml Balance -280 ml ISH ARELLANO MD Jun 22, 2019 16:26
== END 2019-06-22 19:44 | disposition home health service (06) | DRG 689 ==
LOC: M ED 14:29 → EDBD 14:29 → M ED INP 14:30 → M MS5PR 23:10 → OBSVTOIN 06-04 10:35 → M MS5PR 06-04 15:40 → M PCU 06-05 15:15 → M ICU 06-07 06:14 → M MSPAV 06-09 12:25
PROVIDERS: ADMIT Internal Medicine; ATTEND Internal Medicine
PROC: 30233N1 Transfusion of Nonautologous Red Blood Cells into Peripheral Vein, Percutaneous Approach (ICD-10-PCS; principal; 2019-06-07 16:00)
DX: N39.0 Urinary tract infection, site not specified (principal); J96.21 Acute and chronic respiratory failure with hypoxia; I50.33 Acute on chronic diastolic (congestive) heart failure; J96.22 Acute and chronic respiratory failure with hypercapnia; E87.2 Acidosis; E66.2 Morbid (severe) obesity with alveolar hypoventilation; Z68.45 Body mass index [BMI] 70 or greater, adult; L88 Pyoderma gangrenosum; G47.33 Obstructive sleep apnea (adult) (pediatric); Z79.899 Other long term (current) drug therapy; Z79.82 Long term (current) use of aspirin; Z88.0 Allergy status to penicillin; E03.9 Hypothyroidism, unspecified; Z87.442 Personal history of urinary calculi; Z96.651 Presence of right artificial knee joint; Z96.652 Presence of left artificial knee joint; K21.9 Gastro-esophageal reflux disease without esophagitis; I87.2 Venous insufficiency (chronic) (peripheral); I48.0 Paroxysmal atrial fibrillation; B96.29 Other Escherichia coli [E. coli] as the cause of diseases classified elsewhere; I27.20 Pulmonary hypertension, unspecified; I10 Essential (primary) hypertension

== ENCOUNTER → 2019-06-22 | Outpatient (CLI) | payer MEDICARE, OTHER ==
[~2019-06-22] MED LIST changes: +LOPE1CAP5 PO; +LOPE2TAB14 PO; +LUTE1CAP7 PO; +MELA5TAB11 PO; +MULTCAP PO; +NEXI20CA33 PO; +NYST10CR TOP; +PROBCAP14 PO
--- NOTE | 2019-07-02 10:34 | SLEEPCENT ---
DATE OF PROCEDURE: 06/22/2019 REFERRING PHYSICIAN: Dr. Himanshu Pizano. INTERPRETATION: Nocturnal polysomnography was performed for evaluation of sleep apnea syndrome symptoms consisting of excessive daytime sleepiness, snoring, observed apnea, and nonrestorative sleep. She also has the comorbidity of pulmonary hypertension. She has obesity hypoventilation syndrome and she is a significant CO2 retainer (pCO2 65). A total of 8 hours and 24 minutes of data was reviewed with 336.5 minutes of sleep identified. Sleep latency was 65.5 minutes. Rapid eye movement (REM) latency was 196 minutes. All stages of sleep were observed. Sleep efficiency was decreased at 67.8%. EKG showed normal sinus rhythm with an average heart rate at 80 beats per minute. Speeding and slowing was noted surrounding some respiratory events. PVCs were also present. No epileptiform discharge observed. This was a split night study. PART ONE DIAGNOSTIC POLYSOMNOGRAM: There were 127 events identified in the first 74 minutes of sleep giving an apnea/hypopneic index (AHI) of 103.0. Respiratory arousal index (LINK) was 10.5. Oxygen saturation ceferino was 74%. PLM index was 73. The events identified were predominantly obstructive hypopneas or apneas. PART TWO C-PAP TITRATION: Having clearly identified obstructive sleep apnea in the first part of the study, the patient was fitted with a Respironics Dede View full face mask of small size, 4 cm of water pressure was applied to the circuit and the lights were dimmed. CPAP initially begun at 4 cm of water pressure was taken to a high of 14 cm of water, which appeared to be the best pressure, though not clear it was optimal. On this pressure, her AHI was 3.9 and LINK 0. Oxygen saturation ceferino was 87%. Periodic limb movement index was 121. No REM sleep was seen on this pressure but supine REM sleep had been seen on a pressure of 13 with a reasonably good waveform. The entire diagnostic study and titration were done supine . IMPRESSION: 1. Obstructive sleep apnea, severe, reasonably palliated on CPAP at 14 cm of water pressure. 2. Periodic limb movements, severe. RECOMMENDATIONS: Recommend continuation of CPAP at the above pressure via a small Respironics Dede View full face mask or mask of her preference. Clinical correlation will be necessary to ensure eradication of symptoms. RACHEL
== END ==
LOC: EEVIPCON 20:00 → M SLEEP 20:00
PROVIDERS: ATTEND Internal Medicine Pulmonary Disease
DX: G47.33 Obstructive sleep apnea (adult) (pediatric) (principal); G47.61 Periodic limb movement disorder

== ENCOUNTER → 2020-01-28 | Outpatient (REF) | payer MEDICARE, OTHER ==
[~2020-01-28] MED LIST changes: -MERO1INJ IV; +MERO1VIA3 IV
== END ==
LOC: M SFHCCLAY 14:31
PROVIDERS: ATTEND Nurse Practitioner Family
DX: R06.02 Shortness of breath (principal)

== ENCOUNTER 2020-02-19 22:39 | Emergency (ER) | payer MEDICARE, OTHER ==
[~2020-02-19] VITALS: Ht 160 cm; Wt 210.9 kg
[~2020-02-19 22:39] MED LIST changes: -MAPA325T2 PO; +MAPA325T8 PO
[2020-02-19 23:53] LABS: BASO % 0.7 % (0.0-1.0); EOS % 0.2 % (0.0-3.0); HEMATOCRIT 46.7 % (36.0-47.0); HEMOGLOBIN 13.1 g/dl (12.0-15.5); LYMPH # 0.6 10^3/uL (1.5-5.0); LYMPH % 11.5 % (24.0-44.0); MEAN CORPUSCULAR HEMOGLOBIN 26.6 pg (27.0-33.0); MEAN CORPUSCULAR HGB CONC 28.1 g/dl (32.0-36.5); MEAN CORPUSCULAR VOLUME 94.9 fl (80.0-96.0); MONO # 0.7 10^3/uL (0.0-0.8); MONO % 13.3 % (0.0-5.0); NEUTROPHILS # 4.1 10^3/uL (1.5-8.5); NEUTROPHILS % 73.4 % (36.0-66.0); PLATELET COUNT, AUTOMATED 220 10^3/uL (150-450); RED BLOOD COUNT 4.92 10^6/uL (4.00-5.40); WHITE BLOOD COUNT 5.6 10^3/uL (4.0-10.0)
[2020-02-20 01:19] LABS: ALBUMIN 3.1 GM/DL (3.2-5.2); ALT/SGPT 94 U/L (12-78); BILIRUBIN,DIRECT 0.7 MG/DL (0.0-0.2); BILIRUBIN,TOTAL 1.5 MG/DL (0.2-1.0); BLOOD UREA NITROGEN 23 MG/DL (7-18); CALCIUM LEVEL 8.5 MG/DL (8.8-10.2); CARBON DIOXIDE LEVEL 34 MEQ/L (21-32); CHLORIDE LEVEL 96 MEQ/L (98-107); CK-MB VALUE MASS < 1.0 NG/ML (<3.6); CPK CREATINE PHOSPHOKINASE 42 U/L (26-192); CREATININE FOR GFR 0.74 MG/DL (0.55-1.30); GLOMERULAR FILTRATION RATE > 60.0 (>39); GLUCOSE, FASTING 103 MG/DL (70-100); MB/CK RELATIVE INDEX 2.38 (< OR =4); SODIUM LEVEL 133 MEQ/L (136-145); TOTAL PROTEIN 7.2 GM/DL (6.4-8.2); TROPONIN I < 0.02 NG/ML (< 0.10)
[2020-02-20 02:01] VITALS: BP 157/71
[2020-02-20] MEDS ORDERED: CICL0.7739 EX (02:01)
[2020-02-20] MEDS ORDERED: FURO20TA2 PO (02:01)
[2020-02-20] MEDS ORDERED: ATEN50TA2 PO (02:01)
--- NOTE | 2020-02-20 08:13 | ECGEPIP ---
[facility] - ED Test Date: 2020-02-19 Pat Name: ZAINAB MCDONALD Department: Room: - Gender: Female [place] Man: maximus : 1945 Requested By: FRANCO LEWIS Order Number: [id number] Reading MD: Geri Patten Measurements Intervals [place] Rate: 56 P: 15 WV: 183 QRS: 82 QRSD: 89 T: 37 QT: 396 QTc: 384 Interpretive Statements SINUS BRADYCARDIA LOW QRS VOLTAGE IN PRECORDIAL LEADS POSSIBLE ANTERIOR MYOCARDIAL INFARCTION, PROBABLY OLD NSTTW abnormalities Electronically Signed on 02-20-2020 8:12:53 EDT by Geri Patten
[2020-02-21] MEDS ORDERED: VITA50005 PO (10:17)
--- NOTE | 2020-02-22 11:10 | REP ---
REASON FOR EXAM: Weakness. COMPARISON: 06/07/2019. Today's examination is 02/19/2020 at 11:29 p.m. The technique utilized in obtaining the radiograph has magnified the cardiac silhouette and accentuated the interstitial markings. There is no change from the prior exam. There is cardiomegaly accentuating by technique. Mild basilar fibrotic change is suspected status quo with plate-like atelectatic change bilaterally also stable. No acute patchy parenchymal opacities or pleural effusions seem to have developed on this limited portable exam. There is no change in the osseous structures. IMPRESSION: Stable chronic appearing changes. Electronically Signed by Lawrence Mahajan DO 02/22/2020 12:26 P
== END 2020-02-20 02:21 | disposition home or self-care (01) ==
LOC: M ED 22:39
DX: R53.1 Weakness (principal); I10 Essential (primary) hypertension; K21.9 Gastro-esophageal reflux disease without esophagitis; E03.9 Hypothyroidism, unspecified; F41.9 Anxiety disorder, unspecified; Z88.0 Allergy status to penicillin; Z88.2 Allergy status to sulfonamides; Z91.030 Bee allergy status; Z91.09 Other allergy status, other than to drugs and biological substances; Z86.14 Personal history of Methicillin resistant Staphylococcus aureus infection; Z79.899 Other long term (current) drug therapy

== ENCOUNTER 2020-02-21 08:19 | Inpatient (IN) | payer MEDICARE, OTHER ==
[~2020-02-21] VITALS: Ht 165.1 cm; Wt 174.3 kg
[~2020-02-21 08:19] MED LIST changes: +CICL0.7739 EX
[2020-02-21 09:30] LABS: BASO % 0.3 % (0.0-1.0); EOS % 0.2 % (0.0-3.0); HEMATOCRIT 48.6 % (36.0-47.0); HEMOGLOBIN 13.3 g/dl (12.0-15.5); LYMPH # 0.6 10^3/uL (1.5-5.0); LYMPH % 9.9 % (24.0-44.0); MEAN CORPUSCULAR HEMOGLOBIN 26.7 pg (27.0-33.0); MEAN CORPUSCULAR HGB CONC 27.4 g/dl (32.0-36.5); MEAN CORPUSCULAR VOLUME 97.6 fl (80.0-96.0); MONO # 0.8 10^3/uL (0.0-0.8); MONO % 11.9 % (0.0-5.0); NEUTROPHILS # 4.8 10^3/uL (1.5-8.5); NEUTROPHILS % 77.1 % (36.0-66.0); PLATELET COUNT, AUTOMATED 224 10^3/uL (150-450); RED BLOOD COUNT 4.98 10^6/uL (4.00-5.40); WHITE BLOOD COUNT 6.3 10^3/uL (4.0-10.0)
[2020-02-21 09:39] LABS: INR 1.3; PROTHROMBIN TIME 15.9 SECONDS (11.8-14.0)
[2020-02-21 09:40] LABS: PARTIAL THROMBOPLASTIN TIME 31.5 SECONDS (25.0-38.4)
[2020-02-21 10:06] LABS: BLOOD UREA NITROGEN 25 MG/DL (7-18); CALCIUM LEVEL 8.9 MG/DL (8.8-10.2); CARBON DIOXIDE LEVEL 37 MEQ/L (21-32); CHLORIDE LEVEL 96 MEQ/L (98-107); CREATININE FOR GFR 0.81 MG/DL (0.55-1.30); GLOMERULAR FILTRATION RATE > 60.0 (>39); GLUCOSE, FASTING 97 MG/DL (70-100); NT-PRO BNP 2218 PG/ML (<125); POTASSIUM SERUM 5.3 MEQ/L (3.5-5.1); SODIUM LEVEL 135 MEQ/L (136-145)
[2020-02-21] MEDS ORDERED: VITA50005 PO (10:17)
[2020-02-21] MEDS ORDERED: FUROSEMIDE 20MG/2ML VIAL (J1940) IV ONE (11:45)
[2020-02-21] MEDS ORDERED: MOM 30ML SUSPENSION UDC PO PRN (11:45)
[2020-02-21] MEDS: DOCUSATE SODIUM 100 MG CAP PO SCH ×2 (12:00→20:08)
[2020-02-21] MEDS: ENOXAPARIN 40MG/0.4ML SYRINGE (J1650 PER 10MG) SC SCH (12:01)
[2020-02-21 12:02] LABS: ABG HCO3 35.9 MEQ/L (22.0-26.0); ABG O2 SATURATION 85.2 % (95.0-99.0); ABG PARTIAL PRESSURE O2 53.7 mmHg (75.0-100.0); ABG STANDARD HCO3 28.7 MEQ/L (22.0-26.0); ABG TOTAL CO2 38.6 MEQ/L (23.0-31.0)
[2020-02-21 12:06] LABS: ABG PARTIAL PRESSURE CO2 88.4 mmHg (35.0-45.0); ABG pH (ARTERIAL) 7.226 UNITS (7.350-7.450)
[2020-02-21] MEDS: IPRATROPIUM 0.5MG/ALBUTEROL 2.5MG INH SOL UD 3ML (DUONEB) NEB SCH ×4 (13:06→23:21)
[2020-02-21 14:38] LABS: ABG pH (ARTERIAL) 7.266 UNITS (7.350-7.450)
[2020-02-21 14:40] LABS: ABG BASE EXCESS 3.5 (-2.0-2.0); ABG HCO3 32.7 MEQ/L (22.0-26.0); ABG O2 SATURATION 99.2 % (95.0-99.0); ABG PARTIAL PRESSURE O2 140.9 mmHg (75.0-100.0); ABG STANDARD HCO3 27.6 MEQ/L (22.0-26.0); ABG TOTAL CO2 34.9 MEQ/L (23.0-31.0)
[2020-02-21 14:41] LABS: ABG PARTIAL PRESSURE CO2 73.5 mmHg (35.0-45.0)
--- NOTE | 2020-02-21 15:19 | ECGEPIP ---
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
[2020-02-21 15:30] VITALS: BP 118/60
[2020-02-21] MEDS ORDERED: SLF 3 ML SYR IV PRN (15:45)
--- NOTE | 2020-02-21 16:14 | HPEPDOC ---
General Date of Admission February 21, 2020 at 11:37 Date of Service: February 21, 2020 Chief Complaint The patient is a 74-year-old female admitted with a reason for visit of Weakness. Source: Patient, RN/, Old records History of Present Illness This is a 74-year-old female who lives at home, managed by her and a caregiver, usually walks with her walker,with morbid obesity, body mass index (BMI) of 75.2, obstructive sleep apnea compliant with CPAP, obesity hypoventilation, chronic respiratory failure with hypoxia and hypercarbia, hypertension, hypothyroidism, history of recurrent urinary tract infections (UTIs) with extended spectrum beta-lactamase (ESBL) Escherichia (E) coli, history of perforated gastric ulcer, pyoderma gangrenosum, on chronic immunosuppressive therapy, chronic venous stasis ulcers, bilateral prostatic knee replacement, and kidney stones, presents to the emergency room with generalized weakness with limited mobility, worsening shortness of breath , poor appetite. Patient was in the bathroom today and could not get up from the commode even with the help of several family members. So EMS/fire dept was called and was brought to the ED. Her mobility has been getting progressively worse at home and has been difficult to manage at home. As per he is unable to take care of hr at home anymore and would like social media campaign manager to assess living situation. She was noted to be hypoxic in the ED and with High bicarb in basic. ABG showed pH of 7.22/ 88/56. CXR showed features of CHF. Patient was admitted for acute on chronic respiratory failure with hypoxia and hypercarbia felt to be due to fluid overload , CHF exacerbation. Home Medications Scheduled Atenolol (Atenolol) 50 Mg Tablet, 50 MG PO DAILY, (Reported) Ergocalciferol (Vitamin D2) (Vitamin D2) 50,000 Units Cap, 50,000 UNITS PO QWEEK, (Reported) SATURDAYS Furosemide (Furosemide) 20 Mg Tablet, 20 MG PO DAILY, (Reported) Levothyroxine Sodium (Synthroid) 175 Mcg Tablet, 175 MCG PO DAILY, (Reported) PT TAKES BRAND NAME SYNTHROID Lutein/Zeaxanthin (Lutein-Zeaxanthin 20-1 mg Sfgl) 1 Each Capsule, 1 CAP PO DAILY, (Reported) Melatonin (Melatonin) 5 Mg Tab.rapdis, 15 MG PO QHS, (Reported) Multivitamin (Multivitamins) 1 Each Capsule, 1 CAP PO DAILY, (Reported) Mycophenolate Mofetil (Mycophenolate Mofetil) 500 Mg Tab, 1,500 MG PO BID, (Reported) TAKES IN MORNING AND AT LUNCHTIME Nystatin (Nystatin Powder) 15 Gm Powder, 1 APLCT TOP BID, (Reported) APPLY TO CREASES ON LEGS Nystatin (Nystatin) 15 Gm Cream..g., 1 APPLIC TOP DAILY, (Reported) USES ON LEGS Tacrolimus (Protopic) 0.1 % Oin, 1 APPLIC EXT Q2D, (Reported) USES ON LEGS AT NIGHT Scheduled PRN Acetaminophen with Codeine (Acetaminophen-Cod #3 Tablet) 1 Each Tab, 1 TAB PO QID PRN for PAIN, (Reported) Albuterol Sulfate (Ventolin Hfa) 108 Mcg/Act Aer, 2 PUFFS INH Q4H PRN for SHORTNESS OF BREATH, (Reported) Loperamide HCl (Loperamide) 2 Mg Tablet, 1 MG PO DAILY PRN for DIARRHEA, (Reported) Allergies Coded Allergies: Penicillins (Verified Allergy, Intermediate, localized reaction at injection site, 02/21/20) TAPE (Verified Allergy, Intermediate, PLASTIC TAPE - RASH, 03/05/17) bee venom protein (honey bee) (Verified Allergy, Intermediate, localized swelling at site, 02/21/20) sulfamethoxazole (Verified Allergy, Unknown, 06/03/19) Past Medical History Medical History Morbid obesity, body mass index (BMI) of 75.2, obstructive sleep apnea compliant with CPAP, obesity hypoventilation, chronic respiratory failure with hypoxia and hypercarbia, Restrictive lung disease from obesity Diastolic CHF Severe pulmonary hypertension Corpulmonale Chronic bilateral venous stasis hypertension, hypothyroidism, history of recurrent urinary tract infections (UTIs) with extended spectrum beta-lactamase (ESBL) Escherichia (E) coli, history of perforated gastric ulcer, pyoderma gangrenosum on immunosuppresive therapy INTERMITTENT FUNCTIONAL DIARRHEA ECHO 05/2019: MOD-SEVERE PULM HTN. EF: 65% GERD Fatty liver anxiety Surgical History RIGHT KNEE REPLACEMENT 2006 LEFT KNEE REPLACEMENT 2003 KHADAR-BSO: FIBROIDS BREAST LUMPECTOMY KIDNEY STONE REMOVED W/STENT PLACEMENT 08/10/16, URETERAL STENT REMOVAL Appendectomy in 1970s FACIAL SKIN CANCER REMOVAL Family History FATHER: 82 YRS, UNKNOWN CAUSE, MOTHER: 89 YRS, , FROM NATURAL CAUSES, DEMENTIA,KIDNEY STONES, UNSPECIFIED HEART DISEASE Social History * Smoker: Denies Alcohol: Denies Drugs: denies A-FIB/CHADSVASC A-FIB History Current/History of A-Fib/PAF?: No Review of Systems Constitutional: Denies: Chills, Fever, Night Sweats Eyes: Denies: Pain, Vision change ENT: Denies: Head Aches, Ear Pain, Dysphagia Skin: Reports: Lesions (on both legs, groin) Pulmonary: Reports: Dyspnea Cardiovascular: Reports: Edema; Denies: Chest Pain, Palpitations, Orthopnea Gastrointestinal: Reports: Abdominal Pain, Diarrhea Genitourinary: Reports: Dysuria; Denies: Frequency, Incontinence, Retention Hematologic: Denies: Bruising, Bleeding Excessively Musculoskeletal: Reports: Back Pain, Joint Pain Neurological: Reports: Weakness Psych: Reports: Anxiety Physical Examination General Exam: Positive: Alert, Cooperative, No Acute Distress Eye Exam: Positive: PERRLA, Conjunctiva & lids normal, EOMI; Negative: Sclera icteric ENT Exam: Positive: Atraumatic, Mucous membr. moist/pink, Pharynx Normal Neck Exam: Positive: Supple, JVD Chest Exam: Positive: Rhonchi, Wheezing, Diminished Heart Exam: Positive: Rate Normal, Regular Rhythm, Normal S1, Normal S2; Negative: Murmurs, Rubs Telemetry: Positive: No significant arrhythmia Abdomen Exam: Positive: Normal bowel sounds, Soft, Tenderness (in the lower abdomen), Hernia (ventral hernia), Other (scars int eh abdomen, thick lymphedematous skin with parietal edema); Negative: Hepatospenomegaly Extremity Exam: Positive: Edema Skin Exam: Positive: Nl turgor and temperature Neuro Exam: Positive: Normal Speech, Strength at 5/5 X4 ext, Normal Tone Vital Signs Vital Signs Date Time Temp Pulse Resp B/P (MAP) Pulse Ox O2 Delivery O2 Flow Rate FiO2 02/21/20 15:16 Full Face Mask 40 02/21/20 15:00 72 18 125/56 (79) 100 02/21/20 12:15 2.0 02/21/20 09:05 96.8 Laboratory Data Labs 24H Laboratory Tests 2 02/21/20 09:08: Bedside Glucose (Misc Panel) 107 02/21/20 09:09: Prothrombin Time 15.9H, Prothromb Time International Ratio 1.30, Activated Partial Thromboplast Time 31.5, POC Troponin I (Misc) 0.00, Anion Gap 2L, Glomerular Filtration Rate > 60.0, Calcium Level 8.9, Magnesium Level 2.0, NX-Acf-U-Type Natriuretic Peptide 2218H, Thyroid Stimulating Hormone (TSH) 7.290H 02/21/20 09:10: Immature Granulocyte % (Auto) 0.6, Neutrophils (%) (Auto) 77.1H, Lymphocytes (%) (Auto) 9.9L, Monocytes (%) (Auto) 11.9H, Eosinophils (%) (Auto) 0.2, Basophils (%) (Auto) 0.3, Neutrophils # (Auto) 4.8, Lymphocytes # (Auto) 0.6L, Monocytes # (Auto) 0.8, Eosinophils # (Auto) 0.0, Basophils # (Auto) 0.0, Nucleated Red Blood Cells % (auto) 0.5H 02/21/20 11:41: Blood Gas Bicarbonate Standard 28.7H, Arterial Blood pH 7.226*L, Arterial Blood Partial Pressure CO2 88.4*H, Arterial Blood Partial Pressure O2 53.7L, Arterial Blood Total CO2 38.6H, Arterial Blood HCO3 35.9H, Arterial Blood Base Excess 5.0H, Arterial Blood Oxygen Saturation 85.2L 02/21/20 14:27: Blood Gas Bicarbonate Standard 27.6H, Arterial Blood pH 7.266L, Arterial Blood Partial Pressure CO2 73.5*H, Arterial Blood Partial Pressure O2 140.9H, Arterial Blood Total CO2 34.9H, Arterial Blood HCO3 32.7H, Arterial Blood Base Excess 3.5H, Arterial Blood Oxygen Saturation 99.2H 02/21/20 15:03: Urine Color YELLOW, Urine Appearance CLEAR, Urine pH 5.0, Urine Specific [place] 1.006, Urine Protein NEGATIVE, Urine Glucose (UA) NEGATIVE, Urine Ketones NEGATIVE, Urine Blood 1+H, Urine Nitrite NEGATIVE, Urine Bilirubin NEGATIVE, Urine Urobilinogen 0.2, Urine Leukocyte Esterase NEGATIVE, Urine WBC (Auto) 4H, Urine RBC (Auto) 0, Urine Hyaline Casts (Auto) 1, Urine Bacteria (Auto) NEGATIVE, Urine Squamous Epithelial Cells 1, Urine Mucus (Auto) SMALL, Urine Sperm (Auto) CBC/BMP Laboratory Tests 02/21/20 09:09 02/21/20 09:10 Assessment/Plan This is a 74-year-old female who lives at home, managed by her and a caregiver, usually walks with her walker,with morbid obesity, body mass index (BMI) of 75.2, obstructive sleep apnea compliant with CPAP, obesity hypoventilation, chronic respiratory failure with hypoxia and hypercarbia, hypertension, hypothyroidism, history of recurrent urinary tract infections (UTIs) with extended spectrum beta-lactamase (ESBL) Escherichia (E) coli, history of perforated gastric ulcer, pyoderma gangrenosum, on chronic immunosuppressive therapy, chronic venous stasis ulcers, bilateral prostatic knee replacement, and kidney stones requiring stenting presents to the emergency room with generalized weakness with limited mobility, worsening shortness of breath , poor appetite. Patient was in the bathroom today and could not get up from the commode so EMS was called and was brought to the ED. He mobility has be en getting progressively worse at home and has been difficult to manage at home. She was noted to be hypoxic in the ED and with High bicarb in basic. ABG showed pH of 7.22/ 88/56. CXR showed features of CHF. Patient was admitted for acute on chronic respiratory failure with hypoxia and hypercarbia felt to be due to fluid overload , CHF exacerbation. Acute on chronic hypercapnic and hypoxic respiratory failure due to CHF exacerbation Put on CPAP with 14 cm repeat ABG showing improvement. will repeat again if not fully corrected will put on table top BIPAP Duonebs Lasix. Acute on chronic diastolic CHF exacerbation and corpulmonale and acute on chronic right heart failure lasix iv landeros, monitor i/o, fluid restriction. 2 gm sodium diet. WAN continue CPAP Hypertension. atenolol, lasix Hypothyroidism. synthroid home dose. History of perforated gastric ulcer. Prilosec 40 mg History of pyoderma gangrenosum and chronic lower extremity venous stasis ulcers. cotninue Cellcept. History of kidney stones requiring stenting. no issues at present. Morbid obesity, BMI of 75.2 with restrictive lung disease from obesity and obesity hypoventilation. complicating care. Chronic back pain tylenol. dvt prophylaxis: Lovenox Plan / VTE VTE Prophylaxis Ordered?: Yes MIRACLE LOBO MD February 21, 2020 16:14
[2020-02-21 17:35] LABS: ABG BASE EXCESS 3.8 (-2.0-2.0); ABG HCO3 30.8 MEQ/L (22.0-26.0); ABG O2 SATURATION 94.7 % (95.0-99.0); ABG PARTIAL PRESSURE CO2 57.8 mmHg (35.0-45.0); ABG PARTIAL PRESSURE O2 73.3 mmHg (75.0-100.0); ABG STANDARD HCO3 27.8 MEQ/L (22.0-26.0); ABG TOTAL CO2 32.6 MEQ/L (23.0-31.0); ABG pH (ARTERIAL) 7.345 UNITS (7.350-7.450)
[2020-02-21] MEDS: FUROSEMIDE 40MG/4ML VIAL (J1940) IV SCH (18:16)
[2020-02-21 20:00] VITALS: BP 136/64; O2SAT 94
[2020-02-21] MEDS ORDERED: FUROSEMIDE 40MG/4ML VIAL (J1940) IV SCH (20:00)
[2020-02-21] MEDS: SLF 3 ML SYR IV SCH (20:09)
[2020-02-21 21:00] VITALS: O2SAT 93
[2020-02-21 22:00] VITALS: O2SAT 93
[2020-02-21 23:00] VITALS: O2SAT 90
[2020-02-22] VITALS (22 sets, daily range): BP systolic 134–152; BP diastolic 56–70; O2SAT 82–99
[2020-02-22] MEDS: FUROSEMIDE 40MG/4ML VIAL (J1940) IV SCH ×4 (00:10→17:59)
[2020-02-22] MEDS: IPRATROPIUM 0.5MG/ALBUTEROL 2.5MG INH SOL UD 3ML (DUONEB) NEB SCH ×6 (03:41→23:25)
[2020-02-22 05:07] LABS: BASO % 0.4 % (0.0-1.0); EOS % 0.6 % (0.0-3.0); HEMATOCRIT 42.1 % (36.0-47.0); HEMOGLOBIN 12.3 g/dl (12.0-15.5); LYMPH # 0.8 10^3/uL (1.5-5.0); LYMPH % 11.8 % (24.0-44.0); MEAN CORPUSCULAR HGB CONC 29.2 g/dl (32.0-36.5); MEAN CORPUSCULAR VOLUME 92.3 fl (80.0-96.0); MONO % 15.2 % (0.0-5.0); NEUTROPHILS # 4.9 10^3/uL (1.5-8.5); NEUTROPHILS % 71.7 % (36.0-66.0); PLATELET COUNT, AUTOMATED 205 10^3/uL (150-450); RED BLOOD COUNT 4.56 10^6/uL (4.00-5.40); WHITE BLOOD COUNT 6.8 10^3/uL (4.0-10.0)
[2020-02-22] MEDS: LEVOTHYROXINE 25MCG TABLET (0.025MG) PO SCH (05:07)
[2020-02-22] MEDS: LEVOTHYROXINE 150MCG TABLET (0.15MG) PO SCH (05:07)
[2020-02-22] MEDS: SLF 3 ML SYR IV SCH ×3 (05:08→20:47)
[2020-02-22 05:35] LABS: ALT/SGPT 56 U/L (12-78); BILIRUBIN,TOTAL 2.3 MG/DL (0.2-1.0); BLOOD UREA NITROGEN 23 MG/DL (7-18); CALCIUM LEVEL 8.8 MG/DL (8.8-10.2); CARBON DIOXIDE LEVEL 33 MEQ/L (21-32); CHLORIDE LEVEL 94 MEQ/L (98-107); CREATININE FOR GFR 0.74 MG/DL (0.55-1.30); GLOMERULAR FILTRATION RATE > 60.0 (>39); GLUCOSE, FASTING 74 MG/DL (70-100); POTASSIUM SERUM 4.1 MEQ/L (3.5-5.1); SODIUM LEVEL 135 MEQ/L (136-145); TOTAL PROTEIN 6.4 GM/DL (6.4-8.2)
--- NOTE | 2020-02-22 08:26 | REP ---
PORTABLE CHEST X-RAY: Single view. HISTORY: Shortness of breath. COMPARISON STUDY: February 21, 2020. FINDINGS: Monitoring electrodes overlie the chest. Exam quality is inhibited some degree by patient body habitus. Cardiomegaly is again observed. There is some fissural thickening versus plate-like atelectasis in the right mid lung zone. I suspect a small quantity of right pleural fluid. No definite infiltrate is seen. Pulmonary vasculature is cephalized. There is an orthopedic screw plate device in the proximal humerus on the right. IMPRESSION: Cardiomegaly. Suspect small right pleural effusion. Vascular congestion. Electronically Signed by Reginaldo Zee MD 02/22/2020 10:58 A
[2020-02-22] MEDS: DOCUSATE SODIUM 100 MG CAP PO SCH ×2 (09:00→20:47)
[2020-02-22] MEDS: ENOXAPARIN 40MG/0.4ML SYRINGE (J1650 PER 10MG) SC SCH (09:15)
[2020-02-22] MEDS: atenoloL 50 MG TAB PO SCH (09:15)
--- NOTE | 2020-02-22 09:33 | REP ---
PORTABLE CHEST X-RAY: Single view. HISTORY: Cough. Preliminary report is provided at the time of the exam by Dr. Valadez. Comparison study February 19, 2020. FINDINGS: Exam quality is inhibited by patient body habitus. The lung bases are excluded from the field of view. Cardiomegaly is observed. Linear opacities are present bilaterally in the perihilar regions consistent with discoid atelectasis and/or fibrosis. Pulmonary vasculature is cephalized and congested. The thoracic aorta is tortuous. Electronically Signed by Reginaldo Zee MD 02/22/2020 11:00 A
[2020-02-22] MEDS: MYCOPHENOLATE MOFETIL 250 MG CAP (J7517) PO SCH ×2 (10:27→12:17)
[2020-02-22] MEDS: NYSTATIN 100,000 UNITS/GM TOPICAL PWD 15 GM TOP SCH (20:56)
--- NOTE | 2020-02-22 23:16 | IPN ---
DATE: 02/22/2020 Patient diuresed a total of two liters yesterday, two liters at midnight this morning. Current weight is 198.4 kg. Patient was taking off her bilevel positive airway pressure (BiPAP) when the nurse walked in this morning. She is noncompliant and requires five people also to help her up to get around. She is Judith lift at baseline at home. The has requested placement. She still continues to complain of shortness of breath, slightly improved but still present. No chest pain, pressure, or tightness. Afebrile. No cough overnight. Temperature 98.5, pulse 67, respiratory rate 18, blood pressure 152/67, 94% on six liters BiPAP. Generally, patient is morbidly obese, unable to assess for jugular venous distention (JVD) or thyromegaly. She has dried chapped lips. Her lungs are diminished with distant breath sounds but clear to auscultation. Heart: S1, S2, sinus rhythm. Abdomen is obese, soft, nontender, nondistended. Extremities: 3+ pitting edema. LABORATORY DATA: White count 6.8, hemoglobin 12, hematocrit 42, platelet count 205. Sodium 135, potassium 4, chloride 94, bicarbonate 33, BUN 23, creatinine 0.74, glucose 74. Chest x-ray 02/22/2020: Cardiomegaly, right pleural effusion and vascular congestion. HOSPITAL MEDICATIONS: - atenolol - Cellcept - levothyroxine - Lasix 40 mg IV every 6 hours - acetaminophen - DuoNebs - magnesium hydroxide - Colace - Lovenox ASSESSMENT AND PLAN: This is a 74-year-old female with supermorbid obesity, body mass index (BMI) of 78, obstructive sleep apnea, obesity hypoventilation, on continuous positive airway pressure (CPAP), not compliant, chronic hypoxic and hypercarbic respiratory failure, hypertension, hypothyroidism, recurrent urinary tract infection (UTIs) with extended-spectrum beta-lactamase (ESBL), Escherichia (E) coli, and history of perforated gastric ulcer, pyoderma gangrenosum, chronic sacral decubitus, stage 2, follows at [facility] in [place], pulmonary hypertension, diastolic heart failure, ejection fraction (EF) of 65% with preserved ejection fraction, presents with worsening shortness of breath due to acute on chronic hypoxic hypercarbic respiratory failure from congestive heart failure (CHF) exacerbation. ACUTE ISSUES: 1. Acute on chronic diastolic heart failure with cor pulmonale. Right-sided heart failure with preserved systolic function, EF of 65%. Patient is on Lasix 60 IV every 6 hours, strict intake and output, daily weight and fluid restriction. Currently with chapped lips but diuresing well, about 4 liters since admission with decrease in weight to 198 kg. She is currently requiring tabletop BiPAP with DuoNebs. Repeat blood gas showed some improvement. 2. Acute on chronic hypercapnic and hypoxic respiratory failure secondary to CHF exacerbation. Patient currently is on strict intake and output, daily weight, and fluid restriction with subsequent decrease in weight and good diuresis overnight. Will continue to monitor for worsening azotemia. Currently with normal creatinine. 3. Obstructive sleep apnea (WAN). Continued on CPAP. She is noncompliant and was found to have taken this off. 4. Hypertension. On atenolol and Lasix. 5. Hypothyroidism. On home dose of Synthroid. 6. Sacral decubitus. Patient did not want this looked at yesterday and says that she gets Nystatin powder to this. She does not appear to know that she has got skin breakdown. 7. History of perforated ulcer. On Prilosec. 8. History of pyoderma gangrenosum with chronic lower extremity venous stasis ulcers, on chronic Cellcept. 9. History of kidney stones requiring stenting. Currently no issues. 10. Obesity hypoventilation syndrome with morbid obesity, BMI of 78, complicating her care. 11. Chronic back pain, on Tylenol. 12. Deep vein thrombosis (DVT) prophylaxis. On Lovenox. RACHEL
[2020-02-23] VITALS (15 sets, daily range): BP systolic 90–145; BP diastolic 40–73; PULSE 110; O2SAT 88–97
[2020-02-23] MEDS: IPRATROPIUM 0.5MG/ALBUTEROL 2.5MG INH SOL UD 3ML (DUONEB) NEB SCH ×6 (03:36→23:45)
[2020-02-23 04:09] LABS: BASO % 0.7 % (0.0-1.0); EOS % 0.7 % (0.0-3.0); HEMOGLOBIN 12.1 g/dl (12.0-15.5); LYMPH # 0.9 10^3/uL (1.5-5.0); LYMPH % 14.4 % (24.0-44.0); MEAN CORPUSCULAR HEMOGLOBIN 26.8 pg (27.0-33.0); MEAN CORPUSCULAR HGB CONC 29.5 g/dl (32.0-36.5); MEAN CORPUSCULAR VOLUME 90.7 fl (80.0-96.0); MONO # 0.9 10^3/uL (0.0-0.8); MONO % 14.6 % (0.0-5.0); NEUTROPHILS # 4.1 10^3/uL (1.5-8.5); NEUTROPHILS % 69.4 % (36.0-66.0); PLATELET COUNT, AUTOMATED 204 10^3/uL (150-450); RED BLOOD COUNT 4.52 10^6/uL (4.00-5.40); WHITE BLOOD COUNT 5.9 10^3/uL (4.0-10.0)
[2020-02-23 04:24] LABS: ALBUMIN 2.8 GM/DL (3.2-5.2); ALT/SGPT 42 U/L (12-78); BILIRUBIN,TOTAL 2.4 MG/DL (0.2-1.0); BLOOD UREA NITROGEN 20 MG/DL (7-18); CALCIUM LEVEL 8.4 MG/DL (8.8-10.2); CARBON DIOXIDE LEVEL 40 MEQ/L (21-32); CHLORIDE LEVEL 91 MEQ/L (98-107); CREATININE FOR GFR 0.69 MG/DL (0.55-1.30); GLOMERULAR FILTRATION RATE > 60.0 (>39); GLUCOSE, FASTING 79 MG/DL (70-100); POTASSIUM SERUM 3.2 MEQ/L (3.5-5.1); SODIUM LEVEL 136 MEQ/L (136-145); TOTAL PROTEIN 6.1 GM/DL (6.4-8.2)
[2020-02-23] MEDS: LEVOTHYROXINE 150MCG TABLET (0.15MG) PO SCH (05:12)
[2020-02-23] MEDS: FUROSEMIDE 40MG/4ML VIAL (J1940) IV SCH ×4 (05:12→17:10)
[2020-02-23] MEDS: LEVOTHYROXINE 25MCG TABLET (0.025MG) PO SCH (05:12)
[2020-02-23] MEDS: SLF 3 ML SYR IV SCH ×3 (05:12→21:23)
[2020-02-23 07:14] LABS: ABG BASE EXCESS 12.7 (-2.0-2.0); ABG HCO3 39.7 MEQ/L (22.0-26.0); ABG O2 SATURATION 95.3 % (95.0-99.0); ABG PARTIAL PRESSURE O2 78.3 mmHg (75.0-100.0); ABG STANDARD HCO3 36.4 MEQ/L (22.0-26.0); ABG TOTAL CO2 41.7 MEQ/L (23.0-31.0); ABG pH (ARTERIAL) 7.422 UNITS (7.350-7.450)
[2020-02-23 07:17] LABS: ABG PARTIAL PRESSURE CO2 62.4 mmHg (35.0-45.0)
[2020-02-23] MEDS: atenoloL 50 MG TAB PO SCH (08:41)
[2020-02-23] MEDS: NYSTATIN 100,000 UNITS/GM TOPICAL PWD 15 GM TOP SCH ×3 (08:42→21:23)
[2020-02-23] MEDS: ENOXAPARIN 40MG/0.4ML SYRINGE (J1650 PER 10MG) SC SCH (08:42)
[2020-02-23] MEDS: DOCUSATE SODIUM 100 MG CAP PO SCH ×2 (08:43→21:00)
[2020-02-23] MEDS: MYCOPHENOLATE MOFETIL 250 MG CAP (J7517) PO SCH ×2 (08:43→13:01)
[2020-02-23] MEDS ORDERED: POTASSIUM CHLORIDE 10 MEQ SR TABLET PO SCH (09:00)
--- NOTE | 2020-02-23 09:01 | REP ---
Portable chest x-ray: Single view. History: Shortness of breath. Comparison portable exam: February 22, 2020. Findings: Monitoring electrodes overlie the chest. A metallic necklace is seen in place. There is orthopedic device in the proximal humerus on the right as before. Cardiomegaly is again observed moderate in degree. The lungs are under inflated bilaterally unchanged. There is bilateral plate-like atelectasis. Vascular congestion is noted. Hazy opacity at the right base may reflect a small amount of right pleural fluid. Impression: Under aeration. Plate-like atelectasis vascular congestion and cardiomegaly and possible small right effusion suggest CHF. Electronically Signed by Reginaldo Zee MD 02/23/2020 08:52 A
[2020-02-23] MEDS ORDERED: NITROGLYCERIN 0.4 MG SUBL TABLET SL STA (09:45)
[2020-02-23] MEDS ORDERED: NITROGLYCERIN 0.4 MG SUBL TABLET SL PRN (09:45)
[2020-02-23] MEDS ORDERED: MORPHINE 2 MG/ML 1ML VIAL (J2270) IV ONE (09:45)
[2020-02-23] MEDS ORDERED: DIGOXIN INJ 0.5 MG/2 ML AMP (J1160) IV ONE ×2 (09:45→16:00)
[2020-02-23 10:33] LABS: BLOOD UREA NITROGEN 19 MG/DL (7-18); CALCIUM LEVEL 8.4 MG/DL (8.8-10.2); CARBON DIOXIDE LEVEL 41 MEQ/L (21-32); CHLORIDE LEVEL 91 MEQ/L (98-107); CREATININE FOR GFR 0.83 MG/DL (0.55-1.30); GLOMERULAR FILTRATION RATE > 60.0 (>39); GLUCOSE, FASTING 114 MG/DL (70-100); SODIUM LEVEL 139 MEQ/L (136-145)
[2020-02-23] MEDS: PANTOPRAZOLE 40MG VIAL (C9113 PER 1) IV SCH ×2 (10:35→21:22)
[2020-02-23 11:05] LABS: CK-MB VALUE MASS 1.2 NG/ML (<3.6); MB/CK RELATIVE INDEX 0.97 (< OR =4); TROPONIN I 0.02 NG/ML (< 0.10)
[2020-02-23] MEDS: SUCRALFATE SUSP 1GM/10ML UD PO SCH ×3 (13:01→21:22)
--- NOTE | 2020-02-23 14:50 | IPNPDOC ---
Date Seen The patient was seen on 02/23/20. Progress Note SUBJECTIVE: diuresed 6liters yesterday with wt of 190 kg from 198kg yesterday. bedbound, and unable to ambulate. pt is wali lift at baseline. pt was found without cpap mask on overnight, as the patient has removed it. pt has known history of noncompliance, with repeat abg showing slight increase in co2, but compensated. pt had new onset atrial fibrillation on telemetry with rate 103-130, but sbp soft at 103mmHg on lasix for chf. pt was given iv digoxin x 2 doses 6hrs apart. c/o substernal chest tightness with negative troponin. no radiation, slightly improved with nitroglycerin sl and iv morphine. denies diaphoresis/n/v. OBJECTIVE PHYSICAL EXAMINATION: VITALS: pls see below Generally, patient is morbidly obese, unable to assess for jugular venous distention (JVD) or thyromegaly.no use of accessory respiratory muscles. She has dried chapped lips.able to complete sentences. Her lungs are diminished with distant breath sounds but clear to auscultation. Heart: S1, S2, irregularly irregular Abdomen is obese, soft, nontender, nondistended.stage 2 sacral ulcers Extremities: 3+ pitting edema. LABORATORY DATA: I/O pls see below Chest x-ray 02/23/2020: Cardiomegaly, right pleural effusion and vascular congestion. HOSPITAL MEDICATIONS: - atenolol- Cellcept- levothyroxine- Lasix 40 mg IV every 6 hours - acetaminophen- DuoNebs- magnesium hydroxide- Colace - digoxin ASSESSMENT AND PLAN: This is a 74-year-old female with supermorbid obesity, body mass index (BMI) of 78, obstructive sleep apnea, obesity hypoventilation, on continuous positive airway pressure (CPAP), not compliant, chronic hypoxic and hypercarbic respiratory failure, hypertension, hypothyroidism, recurrent urinary tract infection (UTIs) with extended-spectrum beta-lactamase (ESBL), Escherichia (E) coli, and history of perforated gastric ulcer, pyoderma gangrenosum, chronic sacral decubitus, stage 2, follows at [facility] in [place], pulmonary hypertension, diastolic heart failure, ejection fraction (EF) of 65% with preserved ejection fraction, presents with worsening shortness of breath due to acute on chronic hypoxic hypercarbic respiratory failure from congestive heart failure (CHF) exacerbation. ACUTE ISSUES: Acute on chronic diastolic heart failure with cor pulmonale. Right-sided heart failure with preserved systolic function, EF of 65%. Patient is on Lasix IV every 6 hours, strict intake and output, daily weight and fluid restriction. Currently with chapped lips but diuresing well, about13 liters since admission with decrease in weight to 190 kg. She is currently requiring tabletop BiPAP with DuoNebs. due to soft blood pressure, holding parameters were placed on the lasix. New onset Atrial Fibrillation with rapid ventricular response. Due to soft blood pressure, pt was given digoxin, and may need amiodarone since ivfluids cannot be given for blood pressure support due to acute chf exacerbation and the need to diurese. recent echo had been reviewed. pt is apprehensive about being on anticoagulation due to history of gastric ulcer perforatiion. holding parameters have been placed on the lasix to allow blood pressure to increase enough to titrate atenolol for better rate control, but may need amiodarone. Acute on chronic hypercapnic and hypoxic respiratory failure secondary to CHF exacerbation. Patient currently is on strict intake and output, daily weight, and fluid restriction with subsequent decrease in weight and good diuresis overni ght. Will continue to monitor for worsening azotemia. Currently with normal creatinine. Obstructive sleep apnea (WAN). Continued on CPAP. She is noncompliant and was found to have taken this off. repeat abg shows worsening hypercapnia, but still compensated. pt is conversing,without lethargy or altered mental status Hypertension. On atenolol and Lasix. Hypothyroidism. On home dose of Synthroid. Sacral decubitus,stage 2, present on hospital admission. per filter press pumper, trial of salvador packet po bid to facilitate wound healing. pt is wali lift at baseline. turn and reposition q2hrs. air mattress, and pt wound care. pt was previously seen by dr. [place], but pt switched her care to [facility] [place] History of perforated gastric ulcer,resumed ppi and carafate. History of pyoderma gangrenosum with chronic lower extremity venous stasis ulcers, on chronic Cellcept. History of kidney stones requiring stenting. Currently no issues. Obesity hypoventilation syndrome with morbid obesity, BMI of 78, complicating her care. Chronic back pain, on Tylenol. DVT prophylaxis: pt unsure about eliquis in light of h/o gastric ulcer perforation. VS, I&O, 24H, Fishbone Vital Signs/I&O Vital Signs Date Time Temp Pulse Resp B/P (MAP) Pulse Ox O2 Delivery O2 Flow Rate FiO2 02/23/20 12:35 104 96 Nasal Cannula 2.0 02/23/20 10:35 16 129/82 02/23/20 08:00 97.8 02/21/20 15:16 40 I&O- Last 24 Hours up to 6 AM 02/23/20 06:00 Intake Total 120 ml Output Total 6250 ml Balance -6130 ml Laboratory Data 24H LABS Laboratory Tests 2 02/23/20 03:13: Immature Granulocyte % (Auto) 0.2, Neutrophils (%) (Auto) 69.4H, Lymphocytes (%) (Auto) 14.4L, Monocytes (%) (Auto) 14.6H, Eosinophils (%) (Auto) 0.7, Basophils (%) (Auto) 0.7, Neutrophils # (Auto) 4.1, Lymphocytes # (Auto) 0.9L, Monocytes # (Auto) 0.9H, Eosinophils # (Auto) 0.0, Basophils # (Auto) 0.0, Nucleated Red Blood Cells % (auto) 0.0, Anion Gap 5L, Glomerular Filtration Rate > 60.0, Calcium Level 8.4L, Total Bilirubin 2.4H, Aspartate Amino Transf (AST/SGOT) 35, Alanine Aminotransferase (ALT/SGPT) 42, Alkaline Phosphatase 108, Total Protein 6.1L, Albumin 2.8L, Albumin/Globulin Ratio 0.8L 02/23/20 07:02: Blood Gas Bicarbonate Standard 36.4H, Arterial Blood pH 7.422, Arterial Blood Partial Pressure CO2 62.4*H, Arterial Blood Partial Pressure O2 78.3, Arterial Blood Total CO2 41.7H, Arterial Blood HCO3 39.7H, Arterial Blood Base Excess 12.7H, Arterial Blood Oxygen Saturation 95.3 02/23/20 10:01: Anion Gap 7L, Glomerular Filtration Rate > 60.0, Calcium Level 8.4L, Total Creatine Kinase 124, Creatine Kinase MB 1.2, Creatine Kinase MB Relative Index 0.97, Troponin I 0.02 CBC/BMP Laboratory Tests 02/23/20 03:13 02/23/20 10:01 REFUGIO GUERRERO MD February 23, 2020 14:50
[2020-02-23 16:04] LABS: BLOOD UREA NITROGEN 18 MG/DL (7-18); CALCIUM LEVEL 8.4 MG/DL (8.8-10.2); CARBON DIOXIDE LEVEL 42 MEQ/L (21-32); CHLORIDE LEVEL 91 MEQ/L (98-107); CREATININE FOR GFR 0.84 MG/DL (0.55-1.30); GLOMERULAR FILTRATION RATE > 60.0 (>39); GLUCOSE, FASTING 106 MG/DL (70-100); MAGNESIUM LEVEL 1.4 MG/DL (1.8-2.4); POTASSIUM SERUM 3.4 MEQ/L (3.5-5.1); SODIUM LEVEL 133 MEQ/L (136-145)
[2020-02-23 16:12] LABS: CK-MB VALUE MASS 1.8 NG/ML (<3.6); MB/CK RELATIVE INDEX 1.43 (< OR =4); TROPONIN I 0.14 NG/ML (< 0.10)
[2020-02-23] MEDS: POTASSIUM CHLORIDE 10 MEQ SR TABLET PO SCH ×2 (16:25→21:22)
[2020-02-23] MEDS ORDERED: atenoloL 25 MG TAB PO ONE (16:45)
[2020-02-23] MEDS ORDERED: POTASSIUM CHLORIDE 10 MEQ SR TABLET PO ONE (16:45)
[2020-02-23] MEDS ORDERED: MAG SULF 1GM/100ML (MAG RUN) 1 GM in IV 1 EA IV ONE (16:45)
--- NOTE | 2020-02-23 22:00 | ECGEPIP ---
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
[2020-02-23 22:15] LABS: CK-MB VALUE MASS 1.7 NG/ML (<3.6); MB/CK RELATIVE INDEX 1.59 (< OR =4); TROPONIN I 0.21 NG/ML (< 0.10)
[2020-02-24] VITALS (24 sets, daily range): BP systolic 113–143; BP diastolic 57–80; O2SAT 84–95
[2020-02-24] MEDS: FUROSEMIDE 40MG/4ML VIAL (J1940) IV SCH ×6 (00:02→23:45)
[2020-02-24] MEDS: IPRATROPIUM 0.5MG/ALBUTEROL 2.5MG INH SOL UD 3ML (DUONEB) NEB SCH ×6 (04:19→23:45)
[2020-02-24 05:48] LABS: BASO % 0.6 % (0.0-1.0); EOS # 0.1 10^3/uL (0.0-0.5); EOS % 1.8 % (0.0-3.0); HEMATOCRIT 42.8 % (36.0-47.0); HEMOGLOBIN 12.7 g/dl (12.0-15.5); LYMPH % 14.9 % (24.0-44.0); MEAN CORPUSCULAR HEMOGLOBIN 26.7 pg (27.0-33.0); MEAN CORPUSCULAR HGB CONC 29.7 g/dl (32.0-36.5); MEAN CORPUSCULAR VOLUME 89.9 fl (80.0-96.0); MONO # 1.1 10^3/uL (0.0-0.8); MONO % 15.7 % (0.0-5.0); NEUTROPHILS # 4.6 10^3/uL (1.5-8.5); NEUTROPHILS % 66.7 % (36.0-66.0); PLATELET COUNT, AUTOMATED 192 10^3/uL (150-450); RED BLOOD COUNT 4.76 10^6/uL (4.00-5.40); WHITE BLOOD COUNT 6.8 10^3/uL (4.0-10.0)
[2020-02-24] MEDS: LEVOTHYROXINE 25MCG TABLET (0.025MG) PO SCH (06:09)
[2020-02-24] MEDS: LEVOTHYROXINE 150MCG TABLET (0.15MG) PO SCH (06:09)
[2020-02-24] MEDS: SLF 3 ML SYR IV SCH ×3 (06:10→20:51)
[2020-02-24 06:17] LABS: CK-MB VALUE MASS 1.3 NG/ML (<3.6); MB/CK RELATIVE INDEX 1.12 (< OR =4); TROPONIN I 0.22 NG/ML (< 0.10)
[2020-02-24 06:29] LABS: ALBUMIN 2.7 GM/DL (3.2-5.2); ALT/SGPT 33 U/L (12-78); BILIRUBIN,TOTAL 2.2 MG/DL (0.2-1.0); BLOOD UREA NITROGEN 15 MG/DL (7-18); CALCIUM LEVEL 8.3 MG/DL (8.8-10.2); CARBON DIOXIDE LEVEL 44 MEQ/L (21-32); CHLORIDE LEVEL 87 MEQ/L (98-107); CREATININE FOR GFR 0.83 MG/DL (0.55-1.30); DIGOXIN LEVEL 0.3 NG/ML (0.5-2.0); GLOMERULAR FILTRATION RATE > 60.0 (>39); GLUCOSE, FASTING 93 MG/DL (70-100); POTASSIUM SERUM 3.7 MEQ/L (3.5-5.1); SODIUM LEVEL 139 MEQ/L (136-145); TOTAL PROTEIN 6.1 GM/DL (6.4-8.2)
[2020-02-24] MEDS: PANTOPRAZOLE 40MG VIAL (C9113 PER 1) IV SCH ×2 (08:49→20:51)
[2020-02-24] MEDS: SUCRALFATE SUSP 1GM/10ML UD PO SCH ×4 (08:49→20:51)
[2020-02-24] MEDS: POTASSIUM CHLORIDE 10 MEQ SR TABLET PO SCH ×3 (08:50→20:51)
[2020-02-24] MEDS: ENOXAPARIN 40MG/0.4ML SYRINGE (J1650 PER 10MG) SC SCH (08:50)
[2020-02-24] MEDS: MYCOPHENOLATE MOFETIL 250 MG CAP (J7517) PO SCH ×2 (08:50→12:07)
[2020-02-24] MEDS: DOCUSATE SODIUM 100 MG CAP PO SCH ×3 (08:51→19:59)
[2020-02-24] MEDS: NYSTATIN 100,000 UNITS/GM TOPICAL PWD 15 GM TOP SCH ×3 (08:52→20:51)
[2020-02-24] MEDS ORDERED: atenoloL 25 MG TAB PO SCH (09:00)
[2020-02-24] MEDS: DIGOXIN INJ 0.5 MG/2 ML AMP (J1160) IV SCH ×3 (12:05→23:55)
[2020-02-24 12:33] LABS: MAGNESIUM LEVEL 1.3 MG/DL (1.8-2.4)
[2020-02-24] MEDS ORDERED: atenoloL 25 MG TAB PO ONE (15:00)
[2020-02-24] MEDS: METOPROLOL 5 MG/5 ML VIAL IV SCH ×3 (15:35→15:45)
[2020-02-24] MEDS ORDERED: MAG SULF 1GM/100ML (MAG RUN) 1 GM in IV 1 EA IV ONE (16:45)
--- NOTE | 2020-02-24 20:55 | IPN ---
DATE: 02/24/2020 Patient says that her chest pain has disappeared. She currently is back to baseline with improved shortness of breath. Patient is not compliant with her continuous positive airway pressure (CPAP) and remains in atrial fibrillation, rate of 106-136. (DICTATION ENDED HERE)
--- NOTE | 2020-02-24 22:01 | IPN ---
DATE: 02/24/2020 Patient continues to be tachycardic despite two doses of digoxin and increasing atenolol to 75 mg daily. Blood pressure is very well maintained with a mean arterial pressure greater than 75. She is currently asymptomatic and denies any chest pain, pressure, tightness, lightheadedness or dizziness. The patient is not ambulatory at baseline and Judith lift with sacral decubitus, being managed by physical therapy. There has been no complaints of shortness of breath currently at baseline, diuresing well overnight, about 5.4 liters, negative 5 liters since this morning. The patient's creatinine remains stable at 0.83. Current weight is 186.6 kg from admission weight of 201.9, still with 3+ pitting edema in the lower extremities. PHYSICAL EXAMINATION: Temperature 97.6, pulse 116 irregularly irregular to 122, respiratory rate 22, blood pressure 116/71, 84% 2 liters nasal cannula. Generally, patient is awake, alert, oriented to herself, place and time. Positive jugular venous distention (JVD). No thyromegaly. Lungs: Diminished breath sounds, bilateral rales. Heart: S1, S2, irregularly irregular. Abdomen is obese, soft, nontender, nondistended. Positive bowel sounds. Positive pitting edema 3+ to the sacrum. The patient has chronic venous stasis ulcers, as well as sacral decubitus, stage 2. Laboratory data has been reviewed. ASSESSMENT AND PLAN: This is a 74-year-old female, morbidly obese, body mass index (BMI) of 78, obstructive sleep apnea (WAN), obesity hypoventilation syndrome, chronic continuous positive airway pressure (CPAP), noncompliant with chronic hypoxic hypercarbic respiratory failure, hypertension, hypothyroidism, recurrent urinary tract infections (UTIs) with extended-spectrum beta-lactamase (ESBL), Escherichia (E) coli, perforate gastric ulcer, pyoderma gangrenosum, on chronic immunosuppressive therapy, stage 2 sacral decubitus, chronic venous stasis ulcers, diastolic heart failure, severe pulmonary hypertension, presented to the emergency room with worsening respiratory distress, found to have acute on chronic hypoxic and hypercarbic respiratory failure secondary to congestive heart failure (CHF) exacerbation, complicated after 3 days of hospitalization with new onset atrial fibrillation with rapid ventricular response. IMPRESSION: 1. New onset atrial fibrillation with rapid ventricular response. Due to soft blood pressure, patient had been kept on digoxin. She has been increasing in atenolol to 75 mg daily from 50 mg daily. She is currently not rate controlled and will have to increase to 100 mg of atenolol and a loading dose of digoxin and every 6 hours for two more doses. Check a digoxin level in the morning. She is continued on telemetry monitoring. Will monitor for electrolyte abnormalities and optimize potassium and magnesium, as well as the creatinine, in order to prevent digoxin toxicity. At this time, the patient is refusing any anticoagulation due to her history of gastric ulcer perforation 3 years ago. She is worried about having a stroke not being anticoagulated but is also quite worried about having a gastric ulcer perforation again. We had discussed that if she does develop a stroke, this could be very debilitating to her in light of the fact that she is already bed bound and Judith lift at baseline with sacral decubitus. However, if she permits us to anticoagulate her, should she have a decrease in hemoglobin or gastrointestinal (GI) bleed, she can be transfused blood. Once she is euvolemic and out of heart failure, she can also continue on with an esophagogastroduodenoscopy (EGD) to further stabilize any type of upper GI bleeding. The patient, at this time, wants to wait and think about the consequences and decide down the line. 2. Acute on chronic diastolic heart failure with cor pulmonale, preserved systolic function. She has severe pulmonary hypertension with preserved systolic function, ejection fraction of 65%. She is diuresing well; however, we need to monitor patient's creatinine in light of the fact that she is currently on digoxin for atrial fibrillation to prevent digoxin toxicity. She is currently on intake and output, daily weights, fluid restriction. She seems to be responding well. She is continued on Lasix, but blood pressure remains a confounding issue. We are trying not to drop her blood pressure too much as we will not have any room for atenolol to work for rate control of the atrial fibrillation with rapid ventricular response. Patient has had decrease in weight to about 180 kg from presentation of 200 kg. 3. Acute on chronic hypercapnic and hypoxic respiratory failure secondary to CHF exacerbation. Currently on strict intake and output, daily weights, being treated for CHF exacerbation. Continued on supplemental oxygen and being monitored for hypocarbia. 4. Chest pain secondary to new onset atrial fibrillation with troponin leak. Patient's total CK, MB fraction are all negative. She is currently chest pain free. Complains of chest pain, occurred while the patient had atrial fibrillation with rapid ventricular response, which is currently stable. 5. Obstructive sleep apnea, on CPAP. She is currently noncompliant and takes this off whenever she wants. I have spoke with her about her code status, that she is not appropriate to be a full code knowing that she has got severe pulmonary hypertension, WAN, diastolic heart failure and should she naturally, it would cause less suffering than resuscitative efforts. 6. Hypertension. Currently on atenolol, being diuresed with Lasix. 7. Hypothyroidism, on home dose of Synthroid. 8. Stage 2 sacral decubitus that was present on admission. Per finisher accordion, we will do a trial of Rafat twice a day to facilitate with wound healing. She is Judith lift at baseline and bed bound now. She is currently seen by physical therapy, wound care consult, and to be turned and repositioned every 2 hours. 9. History of perforated gastric ulcer. Currently on proton pump inhibitor (PPI) twice a day and Carafate before food and nightly. At this time, she is refusing to take anticoagulation for atrial fibrillation with RVR despite the risk of debility from stroke and possible paralysis from a stroke due to fear of recurrent GI bleed. 10. History of pyoderma gangrenosum with chronic lower extremity venous ulcers. Patient is on chronic immunosuppressive therapy with Cellcept. 11. History of kidney stones and stents. No current issues. 12. Obesity hypoventilation with super morbid obesity, BMI of 78, significantly complicates her care. Currently with cor pulmonale due to severe pulmonary hypertension. 13. Chronic back pain, on Tylenol. 14. Deep vein thrombosis (DVT) prophylaxis. Patient is still deciding on whether or not she should be on anticoagulation for atrial fibrillation due to history of gastric ulcer perforation. [facility]
[2020-02-25] VITALS (15 sets, daily range): BP systolic 100–147; BP diastolic 53–65; O2SAT 87–97
[2020-02-25] MEDS: IPRATROPIUM 0.5MG/ALBUTEROL 2.5MG INH SOL UD 3ML (DUONEB) NEB SCH ×5 (04:19→19:35)
[2020-02-25 05:01] LABS: BASO % 0.6 % (0.0-1.0); EOS # 0.1 10^3/uL (0.0-0.5); EOS % 1.6 % (0.0-3.0); HEMATOCRIT 42.3 % (36.0-47.0); HEMOGLOBIN 12.4 g/dl (12.0-15.5); LYMPH # 1.2 10^3/uL (1.5-5.0); LYMPH % 19.1 % (24.0-44.0); MEAN CORPUSCULAR HEMOGLOBIN 27.2 pg (27.0-33.0); MEAN CORPUSCULAR HGB CONC 29.3 g/dl (32.0-36.5); MEAN CORPUSCULAR VOLUME 92.8 fl (80.0-96.0); MONO # 1.1 10^3/uL (0.0-0.8); MONO % 17.4 % (0.0-5.0); NEUTROPHILS # 3.8 10^3/uL (1.5-8.5); PLATELET COUNT, AUTOMATED 178 10^3/uL (150-450); RED BLOOD COUNT 4.56 10^6/uL (4.00-5.40); WHITE BLOOD COUNT 6.2 10^3/uL (4.0-10.0)
[2020-02-25 05:20] LABS: ALBUMIN 2.3 GM/DL (3.2-5.2); ALT/SGPT 28 U/L (12-78); BILIRUBIN,TOTAL 2.4 MG/DL (0.2-1.0); BLOOD UREA NITROGEN 15 MG/DL (7-18); CALCIUM LEVEL 8.2 MG/DL (8.8-10.2); CARBON DIOXIDE LEVEL 44 MEQ/L (21-32); CHLORIDE LEVEL 87 MEQ/L (98-107); CREATININE FOR GFR 0.72 MG/DL (0.55-1.30); GLOMERULAR FILTRATION RATE > 60.0 (>39); GLUCOSE, FASTING 91 MG/DL (70-100); POTASSIUM SERUM 4.4 MEQ/L (3.5-5.1); SODIUM LEVEL 135 MEQ/L (136-145); TOTAL PROTEIN 5.9 GM/DL (6.4-8.2)
[2020-02-25] MEDS: FUROSEMIDE 40MG/4ML VIAL (J1940) IV SCH ×3 (05:33→17:01)
[2020-02-25] MEDS: SLF 3 ML SYR IV SCH ×3 (05:33→22:12)
[2020-02-25] MEDS: LEVOTHYROXINE 150MCG TABLET (0.15MG) PO SCH (05:33)
[2020-02-25] MEDS: LEVOTHYROXINE 25MCG TABLET (0.025MG) PO SCH (05:33)
[2020-02-25] MEDS: SUCRALFATE SUSP 1GM/10ML UD PO SCH ×4 (08:52→20:22)
[2020-02-25] MEDS: POTASSIUM CHLORIDE 10 MEQ SR TABLET PO SCH ×3 (08:52→20:24)
[2020-02-25] MEDS: ENOXAPARIN 40MG/0.4ML SYRINGE (J1650 PER 10MG) SC SCH (08:53)
[2020-02-25] MEDS: NYSTATIN 100,000 UNITS/GM TOPICAL PWD 15 GM TOP SCH ×3 (08:53→20:25)
[2020-02-25] MEDS: atenoloL 50 MG TAB PO SCH (08:53)
[2020-02-25] MEDS: PANTOPRAZOLE 40MG VIAL (C9113 PER 1) IV SCH (08:53)
[2020-02-25] MEDS: DOCUSATE SODIUM 100 MG CAP PO SCH ×2 (08:54→20:24)
[2020-02-25] MEDS: MYCOPHENOLATE MOFETIL 250 MG CAP (J7517) PO SCH ×2 (08:54→11:57)
[2020-02-25] MEDS ORDERED: DIGOXIN 0.25 MG TAB PO STA (10:49)
[2020-02-25] MEDS: PANTOPRAZOLE 40MG TAB (PROTONIX) PO SCH ×2 (11:08→20:24)
[2020-02-25] MEDS ORDERED: LIDOCAINE 1% MDV 20ML VIAL As Ordered ONE (14:16)
--- NOTE | 2020-02-25 16:01 | REP ---
Procedure: PICC line insertion with Sally The procedure was performed under the direct supervision of Dr. Callahan. The risks and benefits of the procedure were explained to the patient and informed consent was obtained. The patient was unable to lay on the IR table therefore the procedure was performed with the patient left on the hospital bed. The right basilic vein was localized using ultrasound guidance. The skin was prepped and draped in a sterile fashion. 1% lidocaine was used as a local anesthetic. Using ultrasound guidance the basilic vein was cannulated and a 0.018 guidewire was inserted and advanced to the SVC using fluoroscopic guidance. The needle was removed and a 5.5 Swedish dilator and peel-away sheath was inserted over the guide wire. A 5.5 Swedish dual lumen catheter was cut to length of a 42 cm. The dilator was removed and the catheter was inserted over the guide wire. A portable chest x-ray was performed and the image demonstrates the tip of the catheter to be doubled back on itself in the innominate vein. The catheter was repositioned and another chest x-ray was performed. The image demonstrates the catheter to be, again, doubled back on itself in the superior vena cava. The catheter was once again adjusted and another portable chest x-ray was performed. The image demonstrates the tip of the catheter to be in the SVC. The peel-away sheath was removed and the catheter was flushed with heparinized saline as per Hospital protocol. The catheter was affixed to the skin and a sterile dressing was applied. The patient tolerated the procedure well and there were no immediate complications. Electronically Signed by ORA Valdes 02/25/2020 03:18 P Electronically Signed by Jerry Callahan MD 02/25/2020 03:52 P
[2020-02-25] MEDS: APIXABAN 5 MG TAB (ELIQUIS) PO SCH (17:01)
--- NOTE | 2020-02-25 18:31 | IPNPDOC ---
Date Seen The patient was seen on 02/25/20. Progress Note CODE STATUS: After extensive discussion about her overall health, severe pulmonary hypertension, WAN, obesity hypoventilation syndrome, cor pulmonale, chf diastolic dysfunction, sacral decubitus ulcers, super morbid obesity bmi 68, bedridden status, wali-lift at baseline, patient understands that resuscitation will further prolong her suffering. She requests: NO CPR NO DEFIBRILLATION NO INTUBATION DO NOT RESUSCITATE/DO NOT INTUBATE. She will continue on tabletop, but NO INTUBATION. PT HAS SIGNED THE MOLST FORM. VS, I&O, 24H, Fishbone Vital Signs/I&O Vital Signs Date Time Temp Pulse Resp B/P (MAP) Pulse Ox O2 Delivery O2 Flow Rate FiO2 02/25/20 16:10 96.9 69 22 115/54 (74) 90 Nasal Cannula 4.0 02/21/20 15:16 40 I&O- Last 24 Hours up to 6 AM 02/25/20 06:00 Intake Total 1070 ml Output Total 4400 ml Balance -3330 ml Laboratory Data 24H LABS Laboratory Tests 2 02/25/20 04:42: Immature Granulocyte % (Auto) 0.3, Neutrophils (%) (Auto) 61.0, Lymphocytes (%) (Auto) 19.1L, Monocytes (%) (Auto) 17.4H, Eosinophils (%) (Auto) 1.6, Basophils (%) (Auto) 0.6, Neutrophils # (Auto) 3.8, Lymphocytes # (Auto) 1.2L, Monocytes # (Auto) 1.1H, Eosinophils # (Auto) 0.1, Basophils # (Auto) 0.0, Nucleated Red Blood Cells % (auto) 0.0, Anion Gap 4L, Glomerular Filtration Rate > 60.0, Calcium Level 8.2L, Total Bilirubin 2.4H, Aspartate Amino Transf (AST/SGOT) 24, Alanine Aminotransferase (ALT/SGPT) 28, Alkaline Phosphatase 91, Total Protein 5.9L, Albumin 2.3L, Albumin/Globulin Ratio 0.6L, Digoxin Level 2.0 CBC/BMP Laboratory Tests 02/25/20 04:42 REFUGIO GUERRERO MD February 25, 2020 18:31
[2020-02-25] MEDS: SODIUM CHLORIDE 0.9% INJ 10 ML SYR IV SCH (20:23)
[2020-02-25] MEDS ORDERED: PANTOPRAZOLE 40MG TAB (PROTONIX) PO SCH ×2 (21:00)
[2020-02-26] VITALS (21 sets, daily range): BP systolic 109–126; BP diastolic 53–67; O2SAT 84–97
[2020-02-26] MEDS: IPRATROPIUM 0.5MG/ALBUTEROL 2.5MG INH SOL UD 3ML (DUONEB) NEB SCH ×6 (00:16→19:49)
[2020-02-26] MEDS: FUROSEMIDE 40MG/4ML VIAL (J1940) IV SCH ×5 (00:59→23:02)
[2020-02-26] MEDS: LEVOTHYROXINE 25MCG TABLET (0.025MG) PO SCH (05:41)
[2020-02-26] MEDS: LEVOTHYROXINE 150MCG TABLET (0.15MG) PO SCH (05:41)
[2020-02-26] MEDS: SODIUM CHLORIDE 0.9% INJ 10 ML SYR IV SCH ×2 (05:42→18:17)
[2020-02-26] MEDS: SLF 3 ML SYR IV SCH ×3 (05:43→21:20)
[2020-02-26 06:37] LABS: BASO # 0.1 10^3/uL (0.0-0.2); BASO % 0.8 % (0.0-1.0); EOS # 0.2 10^3/uL (0.0-0.5); EOS % 3.9 % (0.0-3.0); HEMATOCRIT 43.9 % (36.0-47.0); HEMOGLOBIN 12.4 g/dl (12.0-15.5); LYMPH # 1.1 10^3/uL (1.5-5.0); LYMPH % 18.1 % (24.0-44.0); MEAN CORPUSCULAR HEMOGLOBIN 26.6 pg (27.0-33.0); MEAN CORPUSCULAR HGB CONC 28.2 g/dl (32.0-36.5); MEAN CORPUSCULAR VOLUME 94.2 fl (80.0-96.0); MONO % 17.4 % (0.0-5.0); NEUTROPHILS # 3.6 10^3/uL (1.5-8.5); NEUTROPHILS % 59.5 % (36.0-66.0); PLATELET COUNT, AUTOMATED 174 10^3/uL (150-450); RED BLOOD COUNT 4.66 10^6/uL (4.00-5.40)
[2020-02-26 07:33] LABS: ALBUMIN 2.6 GM/DL (3.2-5.2); ALT/SGPT 23 U/L (12-78); BLOOD UREA NITROGEN 16 MG/DL (7-18); CALCIUM LEVEL 8.1 MG/DL (8.8-10.2); CARBON DIOXIDE LEVEL 50 MEQ/L (21-32); CHLORIDE LEVEL 84 MEQ/L (98-107); CREATININE FOR GFR 0.71 MG/DL (0.55-1.30); GLOMERULAR FILTRATION RATE > 60.0 (>39); GLUCOSE, FASTING 82 MG/DL (70-100); POTASSIUM SERUM 4.2 MEQ/L (3.5-5.1); SODIUM LEVEL 136 MEQ/L (136-145); TOTAL PROTEIN 5.8 GM/DL (6.4-8.2)
[2020-02-26 08:07] LABS: DIGOXIN LEVEL 1.6 NG/ML (0.5-2.0)
[2020-02-26] MEDS ORDERED: DIGOXIN 0.25 MG TAB PO SCH (09:00)
[2020-02-26] MEDS: DOCUSATE SODIUM 100 MG CAP PO SCH ×2 (09:00→21:19)
[2020-02-26] MEDS: SUCRALFATE SUSP 1GM/10ML UD PO SCH ×4 (09:25→21:19)
[2020-02-26] MEDS: POTASSIUM CHLORIDE 10 MEQ SR TABLET PO SCH ×3 (09:26→21:19)
[2020-02-26] MEDS: APIXABAN 5 MG TAB (ELIQUIS) PO SCH ×2 (09:26→18:17)
[2020-02-26] MEDS: MYCOPHENOLATE MOFETIL 250 MG CAP (J7517) PO SCH ×2 (09:27→13:07)
[2020-02-26] MEDS: PANTOPRAZOLE 40MG TAB (PROTONIX) PO SCH ×2 (09:27→21:19)
[2020-02-26] MEDS: atenoloL 50 MG TAB PO SCH (09:27)
[2020-02-26] MEDS: NYSTATIN 100,000 UNITS/GM TOPICAL PWD 15 GM TOP SCH ×3 (09:28→21:20)
[2020-02-26] MEDS: SODIUM CHLORIDE 0.9% INJ 10 ML SYR IV PRN (13:08)
--- NOTE | 2020-02-26 13:52 | IPN ---
DATE: 02/25/2020 Patient says that she is feeling a lot better. Has not had any more chest pain, pressure, or tightness. Patient's atrial fibrillation had improved after intravenous (IV) amiodarone, digoxin, and increased dose of atenolol but was noted to have atrial flutter with rate control of 83 this morning. Vital signs otherwise had remained stable. She is diuresing well but lost her IV site this morning. She felt a little nauseous without vomiting. No diarrhea. No abdominal pain. Patient is still requiring six people to lift and turn her every 2 hours. She was recently sat up with physical therapy for about 10 seconds and then had to go back to bed due to severe weakness. Current weight is 185.5 kg from admission weight of 201.9 kg. Her body mass index (BMI) is 68.1. She has been net negative balance for the past 5 days, currently at negative 1745 since midnight and was negative 5400 all day yesterday. Patient denies any dizziness or lightheadedness when she was sitting up. Otherwise, no other issues per nursing overnight. This morning, she was agreeable to taking anticoagulation for her atrial flutter to prevent cerebrovascular accident (CVA) despite concerns of prior history of gastric ulcer, perforation, and massive gastrointestinal (GI) bleed 3 years ago. She was agreeable to checking her hemoglobin and hematocrit serially as well as checking the Hemoccult stool to monitor for any active GI bleed. She is currently on Protonix twice a day as well as Carafate for protection, Eliquis, to be taken with food to prevent GI bleed. VITAL SIGNS: Temperature 97.8, pulse 83, respiratory rate 22, blood pressure 122/60, 91% on 3 liters nasal cannula. GENERAL: Patient is awake, alert, oriented to person, place, and time, answering questions appropriately. LUNGS: Distant breath sounds but clear to auscultation. No wheezing or rales. HEART: S1, S2, irregularly irregular. ABDOMEN: Obese, soft, nontender, nondistended. Stage II sacral decubitus. EXTREMITIES: Chronic venous stasis ulcers and 3+ pitting edema. LABORATORY DATA: Have been reviewed. ASSESSMENT AND PLAN: This is a 74-year-old morbidly obese female, body mass index (BMI) of 68 with obesity hypoventilation, chronic hypercapnic and hypoxic respiratory failure, currently a full code. Rescinded her previous DO NOT RESUSCITATE, with new-onset atrial fibrillation/atrial flutter with rapid ventricular response, admitted for congestive heart failure (CHF) acute on chronic exacerbation with generalized weakness. Active issues are as follows: 1. Acute on chronic heart failure, decompensated with preserved systolic function. Patient is diuresing well and has been in net negative balance. Her ejection fraction on previous echo was 65% but has severe pulmonary hypertension with right-sided heart failure and cor pulmonale. Patient is currently on fluid restriction. Strict intake and output, daily weights. She has had significant decrease of over 30-pound weight loss with fluid diuresis. 2. Acute on chronic hypercapnic hypoxic respiratory failure secondary to CHF exacerbation. Strict intake and output, daily weights. Currently at baseline. 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 Patient, however, says that sometimes she gets air blown into her eyes and unable to sleep that way because of the CPAP, and therefore she removes it. We have decided today that an eye mask can be placed to protect her eyes from blowing bleed-in oxygen through her CPAP in order to allow her to rest to prevent her from moving at night. 3. New-onset atrial fibrillation with rapid ventricular rate with troponin leak. Patient currently has no chest pain or other acute ischemic symptoms. She responded to IV amiodarone and currently rate controlled. We have increased her atenolol to 100 mg daily, and digoxin had been given to her. Check a digoxin level again today and continue on telemetry monitoring. 4. Hypertension, currently on atenolol. IV Lasix for diuresis. 5. Hypothyroidism, on Synthroid. 6. Stage II sacral decubitus that was present at admission. Per global transportation manager, Rafat had been added twice a day to facilitate with wound healing. Currently takes six people to turn her. Judith lift at baseline. She will need halfway placement. Therefore,COVID-19 will be obtained for assisted facility (SNF) placement requirement. 7. History of perforated gastric ulcer. Patient is open to take anticoagulation for atrial fibrillation/atrial flutter. She is started on Eliquis twice a day now. She is on proton pump inhibitor (PPI) twice a day and Carafate. 8. Pyoderma gangrenosum and chronic lower extremity venous ulcers, on chronic immunosuppressive therapy with Cellcept. Bandaging and wound care per physical therapy. 9. History of kidney stones. Has no current issues. 10. Obesity hypoventilation with supermorbid obesity, BMI of 68, complicating her care. I have spoken with her at length about her code status, and she is willing to be DO NOT RESUSCITATE but will need to speak with her first. RACHEL
[2020-02-27] VITALS (16 sets, daily range): BP systolic 108–133; BP diastolic 53–60; O2SAT 85–97
[2020-02-27] MEDS: IPRATROPIUM 0.5MG/ALBUTEROL 2.5MG INH SOL UD 3ML (DUONEB) NEB SCH ×6 (00:07→20:20)
[2020-02-27] MEDS: ACETAMINOPHEN 500 MG TAB PO PRN ×2 (02:00→18:00)
[2020-02-27] MEDS: LEVOTHYROXINE 25MCG TABLET (0.025MG) PO SCH (05:07)
[2020-02-27] MEDS: LEVOTHYROXINE 150MCG TABLET (0.15MG) PO SCH (05:07)
[2020-02-27] MEDS: FUROSEMIDE 40MG/4ML VIAL (J1940) IV SCH ×3 (05:11→17:02)
[2020-02-27] MEDS: SODIUM CHLORIDE 0.9% INJ 10 ML SYR IV SCH ×2 (05:12→17:01)
[2020-02-27] MEDS: SLF 3 ML SYR IV SCH ×3 (05:12→21:18)
[2020-02-27 05:36] LABS: BASO # 0.1 10^3/uL (0.0-0.2); BASO % 0.9 % (0.0-1.0); EOS # 0.2 10^3/uL (0.0-0.5); EOS % 3.7 % (0.0-3.0); HEMATOCRIT 42.6 % (36.0-47.0); HEMOGLOBIN 12.1 g/dl (12.0-15.5); LYMPH # 1.2 10^3/uL (1.5-5.0); LYMPH % 18.6 % (24.0-44.0); MEAN CORPUSCULAR HEMOGLOBIN 26.8 pg (27.0-33.0); MEAN CORPUSCULAR HGB CONC 28.4 g/dl (32.0-36.5); MEAN CORPUSCULAR VOLUME 94.2 fl (80.0-96.0); MONO # 1.1 10^3/uL (0.0-0.8); MONO % 17.4 % (0.0-5.0); NEUTROPHILS # 3.9 10^3/uL (1.5-8.5); NEUTROPHILS % 59.1 % (36.0-66.0); PLATELET COUNT, AUTOMATED 183 10^3/uL (150-450); RED BLOOD COUNT 4.52 10^6/uL (4.00-5.40); WHITE BLOOD COUNT 6.6 10^3/uL (4.0-10.0)
[2020-02-27 06:29] LABS: ALBUMIN 2.6 GM/DL (3.2-5.2); ALT/SGPT 19 U/L (12-78); BILIRUBIN,TOTAL 2.6 MG/DL (0.2-1.0); BLOOD UREA NITROGEN 17 MG/DL (7-18); CALCIUM LEVEL 8.1 MG/DL (8.8-10.2); CARBON DIOXIDE LEVEL 49 MEQ/L (21-32); CHLORIDE LEVEL 83 MEQ/L (98-107); CREATININE FOR GFR 0.76 MG/DL (0.55-1.30); GLOMERULAR FILTRATION RATE > 60.0 (>39); GLUCOSE, FASTING 89 MG/DL (70-100); POTASSIUM SERUM 4.1 MEQ/L (3.5-5.1); SODIUM LEVEL 133 MEQ/L (136-145); TOTAL PROTEIN 5.9 GM/DL (6.4-8.2)
--- NOTE | 2020-02-27 07:39 | IPNPDOC ---
Date Seen The patient was seen on 02/27/20. Progress Note sob improved. no chest pain. tele: afib/flutter rate controlled. no issues overnight. takes 5 staff to turn patient, with worsening purulence right LE and thigh malodorous discharge, on vashe wound cleanser, q2day dressing changes. no fever chills .wali at baseline, diuresing well on iv lasix via picc line. remains net negative PE VS see below GENERAL: bipap mask on, sleeping soundly, but easily arousable. unable to answer due to bipap, but nods no to chest pain. LUNGS: Distant breath sounds but clear to auscultation. No wheezing or rales. HEART: S1, S2, irregularly irregular. ABDOMEN: Obese, soft, nontender, nondistended. stage 2 pressure ulcer EXTREMITIES: Chronic venous stasis ulcers and 2+pitting edema. purulent discharge on right lateral thigh. rt leg posterior ulcer malodoruous. chronic stasis dermatitis. left leg ulcer malodorous with purulence. LABORATORY DATA: see below ASSESSMENT AND PLAN: This is a 74-year-old morbidly obese female, body mass index (BMI) of 68 with obesity hypoventilation, chronic hypercapnic and hypoxic respiratory failure, currently a full code. Rescinded her previous DO NOT RESUSCITATE, with new-onset atrial fibrillation/atrial flutter with rapid ventricular response, admitted for congestive heart failure (CHF) acute on chronic exacerbation with generalized weakness. IMPRESSION: Acute on chronic heart failure, decompensated with preserved systolic function. Acute on chronic hypercapnic hypoxic respiratory failure secondary to CHF exacerbation. New-onset atrial fibrillation with rapid ventricular rate with troponin leak. Hypertension, Hypothyroidism, Stage II pressure ulcer on back bl LE chronic venous ulcers with purulence Pyoderma gangrenosum PLAN: -continue present diuresis, bipap, and q2hr repositioning -send wound cx, general surgical consult for wound care -no signs of bleeding despite being on oral AC and h/o gastric ulcer on PPI. -dc once euvolemic on Friday or Friday, awaiting COVID19 result for SNF placement -DNR,DNI VS, I&O, 24H, Fishbone Vital Signs/I&O Vital Signs Date Time Temp Pulse Resp B/P (MAP) Pulse Ox O2 Delivery O2 Flow Rate FiO2 02/27/20 07:22 BIPAP/CPAP 4.0 5/31/20 04:00 98.5 82 18 108/53 (71) 90 02/21/20 15:16 40 I&O- Last 24 Hours up to 6 AM 02/27/20 06:00 Intake Total 778 ml Output Total 4900 ml Balance -4122 ml Laboratory Data 24H LABS Laboratory Tests 2 02/27/20 05:21: Immature Granulocyte % (Auto) 0.3, Neutrophils (%) (Auto) 59.1, Lymphocytes (%) (Auto) 18.6L, Monocytes (%) (Auto) 17.4H, Eosinophils (%) (Auto) 3.7H, Basophils (%) (Auto) 0.9, Neutrophils # (Auto) 3.9, Lymphocytes # (Auto) 1.2L, Monocytes # (Auto) 1.1H, Eosinophils # (Auto) 0.2, Basophils # (Auto) 0.1, Nucleated Red Blood Cells % (auto) 0.0, Anion Gap 1L, Glomerular Filtration Rate > 60.0, Calcium Level 8.1L, Total Bilirubin 2.6H, Aspartate Amino Transf (AST/SGOT) 23, Alanine Aminotransferase (ALT/SGPT) 19, Alkaline Phosphatase 83, Total Protein 5.9L, Albumin 2.6L, Albumin/Globulin Ratio 0.8L CBC/BMP Laboratory Tests 02/27/20 05:21 Microbiology Microbiology 02/26/20 Coronavirus COVID-19 PCR ([facility]), Received Pending REFUGIO GUERRERO MD February 27, 2020 07:30
[2020-02-27] MEDS: POTASSIUM CHLORIDE 10 MEQ SR TABLET PO SCH ×3 (08:48→21:16)
[2020-02-27] MEDS: SUCRALFATE SUSP 1GM/10ML UD PO SCH ×4 (08:49→21:16)
[2020-02-27] MEDS: NYSTATIN 100,000 UNITS/GM TOPICAL PWD 15 GM TOP SCH ×3 (08:49→21:00)
[2020-02-27] MEDS: atenoloL 50 MG TAB PO SCH (08:50)
[2020-02-27] MEDS: APIXABAN 5 MG TAB (ELIQUIS) PO SCH ×2 (08:50→17:00)
[2020-02-27] MEDS: DOCUSATE SODIUM 100 MG CAP PO SCH ×2 (08:51→21:00)
[2020-02-27] MEDS: MYCOPHENOLATE MOFETIL 250 MG CAP (J7517) PO SCH ×2 (08:51→12:38)
[2020-02-27] MEDS: PANTOPRAZOLE 40MG TAB (PROTONIX) PO SCH ×2 (08:51→21:16)
--- NOTE | 2020-02-27 13:46 | IPN ---
DATE OF SERVICE: 02/26/2020 Patient is diuresing well. Denies any chest pain, pressure, tightness, shortness of breath, lightheadedness, or dizziness. She is being turned every few hours and says that she was able to sit up, but only for about 10 seconds because it hurts her decubitus ulcers. Patient appears to be in better spirits today. She did sign a Medical Orders for Life-Sustaining Treatment (MOLST) form yesterday, DO NOT RESUSCITATE, DO NOT INTUBATE. She says that she was unable to sleep and felt a little bit depressed because of her recent hospitalization, but decided to call her friend at 4:30 this morning and, "I ended up laughing a lot," with her friend. Patient is agreeable with the plans for placement after she is medically stable. She currently has no other issues. Her atrial flutter/atrial fibrillation is rate controlled. We are waiting for the digoxin level again this morning. She was on 0.25 mg as well as an increasing dose of atenolol. While on Eliquis, patient has not had any hematemesis, bright red blood per rectum, melena, or black tarry stools. She continues to have lower extremity edema, which is chronic, but now with malodorous odor of the bilateral lower extremities. Dressings are changed every 2 days. VITAL SIGNS: Temperature 97.6, pulse 72, respiratory 22, blood pressure 119/54, 95% on 4 liters nasal cannula. Generally, patient is awake, alert, oriented, answering questions appropriately. No jugular venous distention (JVD). No thyromegaly or cervical lymphadenopathy. Lungs are diminished but some fine crackles. Heart: S1, S2, regularly, irregular. Abdomen is obese, soft, nontender, nondistended. Stage II sacral decubitus. Extremities: Chronic lower extremity edema and chronic wounds from venous stasis, malodorous discharge and dressing. LABORATORY DATA: CBC, metabolic panel have been reviewed. ASSESSMENT AND PLAN: This is a 74-year-old, morbidly obese female, body mass index (BMI) of 64.9 with cor pulmonale, right-sided heart failure, congestive heart failure, ejection fraction with preserved systolic function, ejection fraction is 65%, obstructive sleep apnea (WAN), obesity, hypoventilation syndrome on continuous positive airway pressure (CPAP), noncompliant, chronic hypoxic and hypercarbic respiratory failure, hypertension, hypothyroidism, recurrent infection with extended-spectrum beta-lactamase (ESBL), Escherichia (E) coli and history of perforated gastric ulcer, with blood loss anemia requiring resuscitation, gangrenosum with chronic sacral decubitus stage II, follows at [facility] for pulmonology and wound care, pulmonary hypertension, presented to the hospital with worsening shortness of breath secondary to congestive heart failure (CHF) examination from cor pulmonale. IMPRESSION: 1. Acute on chronic diastolic heart failure exacerbation with cor pulmonale with preserved systolic function, ejection fraction 65%. Patient is diuresing quite well and has been net negative since admission. Her admission weight was 201.9 kg, and current weight is 177 kg with normal creatinine. She is being to have contraction alkalosis with bicarbonate increasing to 50. Telemetry remains controlled atrial fibrillation, ventricular rate of 72-82. She is currently on atenolol. Will start spironolactone, angiotensin-converting enzyme (GARRY) inhibitors, since creatinine is stable, if blood pressure permits. She is currently on strict intake and output, daily weights, and fluid restriction with good net negative balance. We will need to check her discharge weight as baseline. 2. New-onset atrial fibrillation. Currently rate controlled. Patient did receive multiple doses of digoxin and one dose of amiodarone, and increasing doses of atenolol from 50 mg at home to 75, and currently at 100 mg with holding parameters. Patient was apprehensive about being on anticoagulation in light of prior history of gastric ulcer and massive gastrointestinal (GI) bleed but, currently, hemoglobin/hematocrit remain stable with no signs of active bleeding, hematemesis, bright red blood per rectum, black or tarry stools. Blood pressure appears to be stable on the current dose of atenolol 100 mg daily. 3. Acute on chronic hypercapnic/hypoxic respiratory failure secondary to CHF exacerbation. Patient is improved with decreasing weight from 201 kg to 177 kg with over a 50 pound weight loss during this diuresis. Obstructive sleep apnea, noncompliant with continuous positive airway pressure (CPAP). Patient has episodes where she would take the mask off and develop hypercapnia. Currently stable and at baseline. 4. Hypertension. Stable on atenolol. Still on intravenous Lasix, but will need to change to oral twice a day when she reaches euvolemia. 5. Stage II sacral decubitus, that was present on hospital admission. Currently on Rafat by mouth twice a day per mortgage banker's recommendation. She is being turned and repositioned every 2 hours with an air mattress. Wound care per physical therapy. She follows with [facility] wound facility as outpatient. 6. History of pyoderma gangrenosum with chronic lower extremity venous ulcers. She is on chronic Cellcept and every 2 day dressing changes. Will need to monitor for any acute infection. She is having some malodorous discharge and will ask surgery to see if debridement is necessary. 7. History of kidney stones that required stenting. Currently has no issues with normal creatinine. 8. Obesity hypoventilation syndrome with increase in severe pulmonary hypertension requiring bilevel positive airway pressure (BiPAP) therapy for WAN. Currently stable. 9. Chronic back pain. On Tylenol. 10. Deep venous thrombosis (DVT) prophylaxis. On Eliquis. DISPOSITION: Patient will need 2-3 more days for continued diuresis, and discharge plan is for Friday or Friday. has requested placement. RACHEL
[2020-02-28] VITALS (22 sets, daily range): BP systolic 107–126; BP diastolic 55–64; O2SAT 83–98
[2020-02-28] MEDS: IPRATROPIUM 0.5MG/ALBUTEROL 2.5MG INH SOL UD 3ML (DUONEB) NEB SCH ×7 (00:05→23:52)
[2020-02-28] MEDS: SODIUM CHLORIDE 0.9% INJ 10 ML SYR IV PRN ×2 (00:17→18:41)
[2020-02-28] MEDS: FUROSEMIDE 40MG/4ML VIAL (J1940) IV SCH ×2 (00:17→06:32)
[2020-02-28 04:09] LABS: BASO # 0.1 10^3/uL (0.0-0.2); BASO % 1.7 % (0.0-1.0); EOS # 0.3 10^3/uL (0.0-0.5); EOS % 5.3 % (0.0-3.0); HEMATOCRIT 44.1 % (36.0-47.0); HEMOGLOBIN 12.8 g/dl (12.0-15.5); LYMPH # 1.3 10^3/uL (1.5-5.0); LYMPH % 21.7 % (24.0-44.0); MEAN CORPUSCULAR HEMOGLOBIN 27.2 pg (27.0-33.0); MEAN CORPUSCULAR VOLUME 93.8 fl (80.0-96.0); MONO % 16.9 % (0.0-5.0); NEUTROPHILS # 3.3 10^3/uL (1.5-8.5); NEUTROPHILS % 54.2 % (36.0-66.0); PLATELET COUNT, AUTOMATED 190 10^3/uL (150-450); WHITE BLOOD COUNT 6.1 10^3/uL (4.0-10.0)
[2020-02-28 04:33] LABS: ALBUMIN 2.5 GM/DL (3.2-5.2); ALT/SGPT 17 U/L (12-78); BLOOD UREA NITROGEN 17 MG/DL (7-18); CALCIUM LEVEL 8.1 MG/DL (8.8-10.2); CARBON DIOXIDE LEVEL 42 MEQ/L (21-32); CHLORIDE LEVEL 86 MEQ/L (98-107); CREATININE FOR GFR 0.74 MG/DL (0.55-1.30); GLOMERULAR FILTRATION RATE > 60.0 (>39); GLUCOSE, FASTING 95 MG/DL (70-100); POTASSIUM SERUM 4.4 MEQ/L (3.5-5.1); SODIUM LEVEL 137 MEQ/L (136-145)
[2020-02-28] MEDS: SLF 3 ML SYR IV SCH ×4 (06:00→21:39)
[2020-02-28] MEDS: SODIUM CHLORIDE 0.9% INJ 10 ML SYR IV SCH ×2 (06:33→18:40)
[2020-02-28] MEDS: LEVOTHYROXINE 25MCG TABLET (0.025MG) PO SCH (06:33)
[2020-02-28] MEDS: LEVOTHYROXINE 150MCG TABLET (0.15MG) PO SCH (06:37)
[2020-02-28] MEDS: APIXABAN 5 MG TAB (ELIQUIS) PO SCH ×2 (07:56→18:40)
[2020-02-28] MEDS: SUCRALFATE SUSP 1GM/10ML UD PO SCH ×4 (07:56→21:23)
[2020-02-28] MEDS: MYCOPHENOLATE MOFETIL 250 MG CAP (J7517) PO SCH ×2 (07:57→13:23)
[2020-02-28] MEDS: NYSTATIN 100,000 UNITS/GM TOPICAL PWD 15 GM TOP SCH ×3 (09:00→21:22)
[2020-02-28] MEDS: DOCUSATE SODIUM 100 MG CAP PO SCH ×3 (09:00→21:23)
[2020-02-28] MEDS: PANTOPRAZOLE 40MG TAB (PROTONIX) PO SCH ×2 (09:51→21:23)
[2020-02-28] MEDS: atenoloL 50 MG TAB PO SCH (09:52)
[2020-02-28] MEDS: POTASSIUM CHLORIDE 10 MEQ SR TABLET PO SCH ×3 (09:52→21:23)
[2020-02-28] MEDS ORDERED: metOLazone 5 MG TAB PO ONE (10:30)
--- NOTE | 2020-02-28 10:37 | CR ---
DATE OF CONSULTATION: 02/27/2020 REASON FOR CONSULTATION: Wound care. HISTORY OF PRESENT ILLNESS: The patient is a 74-year-old female who currently was living at home being taken care of by her . She was admitted to the hospital due to shortness of breath and weakness, found to be having a congestive heart failure (CHF) exacerbation. She has chronic lower extremity venous wounds. She is under the care of wound care through the wound care clinic at [facility], [place]. She has already been the hospital for 5 days. I was asked to evaluate her wounds on her lower extremities. The patient denies any problems or complaints with them. She has had them for many years. They have been taken care of without any complications. She denies any pain in the area and no problems expressed from any of the nurses as far as taking care of them either. PAST MEDICAL HISTORY: Morbid obesity, sleep apnea, obesity hypoventilation, chronic respiratory failure, restrictive lung disease, diastolic CHF, severe pulmonary hypertension, chronic bilateral venous stasis, hypertension, hypothyroidism, pyoderma gangrenosum, fatty liver, anxiety. PAST SURGICAL HISTORY: Bilateral knee replacements, hysterectomy, breast lumpectomy, appendectomy. FAMILY HISTORY: Noncontributory. SOCIAL HISTORY: Denies drug, alcohol, or tobacco abuse. ALLERGIES: PENICILLIN, SULFAMETHOXAZOLE, BEE VENOM, TAPE. HOME MEDICATIONS: Please see medical record. REVIEW OF SYSTEMS: Pertinent positives and negative in history of present illness (HPI). PHYSICAL EXAMINATION: General: Alert and oriented times three. In no acute distress. Vital signs: Temperature 98.5, pulse 82, respirations 18, blood pressure 108/53, pulse oximetry 93% on 4 liter bilateral positive airway pressure (BiPAP). Heart: S1, S2, regular rate and rhythm. Lungs: Clear to auscultation bilaterally. Abdomen: Soft, obese, nontender. Extremities: There is bilateral lower extremity venous stasis changes, bilateral lower extremity pitting edema. Posterior calves bilaterally have open wounds. The one on the left is about 3 x 5 cm in dimension with no signs of any slough tissue on top. Nice healthy granulation tissue. No signs of any infection. The right calf is the same. Just about half the size. On the right lateral thigh, there are three little wounds that are superficial, about 1-2 cm in size each. A little bit of slough tissue over top. No signs of deep infection or fluctuance or erythema. LABORATORY DATA: White count 6.6, hemoglobin 12.1, platelets 183, potassium 4.1, creatinine 0.76. ASSESSMENT AND PLAN: The patient is a 74-year-old female with severe morbid obesity and multiple comorbidities, bilateral lower extremity venous stasis with the ulcers appear to be very well taken care of. They are all clean and intact. I recommend continuing current wound care therapy, and it sounds like she is going to be eventually [facility] into the [facility]. Will likely not be able to continue with her wound care management through [facility], [place]. I would recommend she become reestablished with Dr. Alonso for further care.
--- NOTE | 2020-02-28 10:43 | IPNPDOC ---
Date Seen The patient was seen on 02/28/20. Progress Note c/o not being able to sleep due to gi upset. no n/v/d. able to eat her breakfast this morning.no fever or chills. afib rate controlled. denies chest pain, pressure, or tightness. says she doesn't get out of bed at home, and barely walks from bedroom to bathroom , and usually only for a few minutes. wounds in bl Le evaluated by general surgery, with no new recommendations, and no need for surgical debridement. PE VITALS/I/O: see below Generally, patient is awake, alert, oriented, answering questions appropriately. No jugular venous distention (JVD). No thyromegaly or cervical lymphadenopathy. appears her stated age. normal affect Lungs are diminished distant breath sounds Heart: S1, S2, regularly, irregular. Abdomen is obese, soft, nontender, nondistended. Stage II sacral decubitus. Extremities: Chronic lower extremity edema and chronic wounds from venous stasis, malodorous discharge on right lateral thigh. LABORATORY DATA: CBC, metabolic panel have been reviewed. ASSESSMENT AND PLAN: This is a 74-year-old, morbidly obese female, body mass index (BMI) of 64.9 with cor pulmonale, right-sided heart failure, congestive heart failure, ejection fraction with preserved systolic function, ejection fraction is 65%, obstructive sleep apnea (WAN), obesity, hypoventilation sy ndrome on continuous positive airway pressure (CPAP), noncompliant, chronic hypoxic and hypercarbic respiratory failure, hypertension, hypothyroidism, recurrent infection with extended-spectrum beta-lactamase (ESBL), Escherichia (E) coli and history of perforated gastric ulcer, with blood loss anemia requiring hematemesis, bright red blood per rectum, black or tarry stools. Blood pressure appears to be stable on the current dose of atenolol 100 mg daily. IMPRESSION: 1. Acute on chronic diastolic heart failure exacerbation with cor pulmonale with preserved systolic function, ejection fraction 65% -s/p iv lasix q6hrs -remains net negative balance - Her admission weight was 201.9 -no with worsening contraction alkalosis -on strict intake and output, daily weights, and fluid restriction -discontinued iv lasix, as she appears to be euvolemic -trial of oral torsemide 40mg bid -repeat mg, mp at 2200 to replete electrolytes if needed. 2. New-onset atrial fibrillation. -rate controlled -s/p multiple doses of digoxin and one dose of amiodarone -s/p increasing doses of atenolol from 50 mg at home to 75, and currently at 100 mg with holding parameters. -Patient was apprehensive about being on anticoagulation in light of prior history of gastric ulcer and massive gastrointestinal (GI) bleed but, currently, hemoglobin/hematocrit remain stable with no signs of active bleeding, hematemesis, bright red blood per rectum, black or tarry stools. -Blood pressure appears to be stable on the current dose of atenolol 100 mg daily. -c/o slight abd discomfort today, so will need to check for repeat h&h in the am. 3. Acute on chronic hypercapnic/hypoxic respiratory failure secondary to CHF exacerbation. -noncompliant with CPAP. -RN often finds patient off CPAP at night, because "the air blows in my eyes, and I can't sleep. It bothers me." 4. Hypertension,controlled -on atenolol -trial of po torsemide bid to keep euvolemic from CHF. 5. Stage II sacral decubitus, that was present on hospital admission. -on Rafat by mouth twice a day per fleshing machine operator's recommendation. -turned and repositioned every 2 hours with an air mattress. -Wound care per physical therapy. -She follows with [facility] wound facility as outpatient. -takes 5 staff members to turn the patient. wali at baseline. 6. History of pyoderma gangrenosum with chronic lower extremity venous ulcers. - on chronic Cellcept and every 2 day dressing changes. -no new recommendations by Dr. estrada. 7. History of kidney stones that required stenting. Currently has no issues with normal creatinine. 8. Obesity hypoventilation syndrome with increase in severe pulmonary hypertension requiring bilevel positive airway pressure (BiPAP) therapy for WAN. Currently stable. 9. Chronic back pain. On Tylenol. 10. Deep venous thrombosis (DVT) prophylaxis. On Eliquis. 11. History of gastric ulcer with massive gi bleed. monitor for symptomatic anemia, overt GI bleed, and repeat h&h while on eliquis. -on ppi and carafate. disposition: if stable on torsemide overnight, may dc to snf in am. requests SNF placement. VS, I&O, 24H, Yenny Vital Signs/I&O Vital Signs Date Time Temp Pulse Resp B/P (MAP) Pulse Ox O2 Delivery O2 Flow Rate FiO2 02/28/20 09:52 85 123/59 02/28/20 07:57 97.0 18 95 Nasal Cannula 4.0 I&O- Last 24 Hours up to 6 AM 02/28/20 06:00 Intake Total 1110 ml Output Total 4325 ml Balance -3215 ml Laboratory Data 24H LABS Laboratory Tests 2 02/28/20 03:46: Immature Granulocyte % (Auto) 0.2, Neutrophils (%) (Auto) 54.2, Lymphocytes (%) (Auto) 21.7L, Monocytes (%) (Auto) 16.9H, Eosinophils (%) (Auto) 5.3H, Basophils (%) (Auto) 1.7H, Neutrophils # (Auto) 3.3, Lymphocytes # (Auto) 1.3L, Monocytes # (Auto) 1.0H, Eosinophils # (Auto) 0.3, Basophils # (Auto) 0.1, Nucleated Red Blood Cells % (auto) 0.0, Anion Gap 9, Glomerular Filtration Rate > 60.0, Calcium Level 8.1L, Total Bilirubin 2.0H, Aspartate Amino Transf (AST/SGOT) 23, Alanine Aminotransferase (ALT/SGPT) 17, Alkaline Phosphatase 83, Total Protein 6.0L, Albumin 2.5L, Albumin/Globulin Ratio 0.7L CBC/BMP Laboratory Tests 02/28/20 03:46 Microbiology Microbiology 02/26/20 Coronavirus COVID-19 PCR (LARISA), Received Pending REFUGIO GUERRERO MD Feb 28, 2020 10:28
[2020-02-28] MEDS ORDERED: TORSEMIDE 20 MG TAB PO ONE (11:00)
[2020-02-28] MEDS: ACETAMINOPHEN 500 MG TAB PO PRN (14:10)
[2020-02-28] MEDS: TORSEMIDE 20 MG TAB PO SCH (18:40)
[2020-02-29] MEDS: ACETAMINOPHEN 500 MG TAB PO PRN (00:38)
[2020-02-29] MEDS: IPRATROPIUM 0.5MG/ALBUTEROL 2.5MG INH SOL UD 3ML (DUONEB) NEB SCH ×5 (04:13→20:01)
[2020-02-29] MEDS: SLF 3 ML SYR IV SCH ×3 (05:18→20:41)
[2020-02-29] MEDS: LEVOTHYROXINE 25MCG TABLET (0.025MG) PO SCH (05:47)
[2020-02-29] MEDS: LEVOTHYROXINE 150MCG TABLET (0.15MG) PO SCH (05:47)
[2020-02-29] MEDS: SODIUM CHLORIDE 0.9% INJ 10 ML SYR IV SCH ×2 (05:48→17:43)
[2020-02-29 06:00] VITALS: BP 108/55
[2020-02-29 06:35] LABS: BLOOD UREA NITROGEN 18 MG/DL (7-18); CALCIUM LEVEL 8.7 MG/DL (8.8-10.2); CARBON DIOXIDE LEVEL 49 MEQ/L (21-32); CHLORIDE LEVEL 83 MEQ/L (98-107); CREATININE FOR GFR 0.77 MG/DL (0.55-1.30); GLOMERULAR FILTRATION RATE > 60.0 (>39); GLUCOSE, FASTING 100 MG/DL (70-100); MAGNESIUM LEVEL 1.5 MG/DL (1.8-2.4); POTASSIUM SERUM 3.7 MEQ/L (3.5-5.1); SODIUM LEVEL 136 MEQ/L (136-145)
[2020-02-29] MEDS ORDERED: MAG SULF 1GM/100ML (MAG RUN) 1 GM in IV 1 EA IV ONE (08:00)
[2020-02-29] MEDS: SUCRALFATE SUSP 1GM/10ML UD PO SCH ×4 (08:57→20:42)
[2020-02-29] MEDS: DOCUSATE SODIUM 100 MG CAP PO SCH ×2 (08:58→20:41)
[2020-02-29] MEDS: APIXABAN 5 MG TAB (ELIQUIS) PO SCH ×2 (08:59→17:41)
[2020-02-29] MEDS: TORSEMIDE 20 MG TAB PO SCH ×2 (08:59→17:41)
[2020-02-29] MEDS: atenoloL 50 MG TAB PO SCH (08:59)
[2020-02-29] MEDS: PANTOPRAZOLE 40MG TAB (PROTONIX) PO SCH ×2 (08:59→20:42)
[2020-02-29] MEDS: POTASSIUM CHLORIDE 10 MEQ SR TABLET PO SCH ×3 (08:59→20:42)
[2020-02-29] MEDS: MYCOPHENOLATE MOFETIL 250 MG CAP (J7517) PO SCH ×2 (09:00→12:10)
[2020-02-29] MEDS: NYSTATIN 100,000 UNITS/GM TOPICAL PWD 15 GM TOP SCH ×4 (09:01→20:42)
[2020-02-29] MEDS: SODIUM CHLORIDE 0.9% INJ 10 ML SYR IV PRN ×2 (10:17→17:44)
[2020-02-29 12:13] LABS: BASO # 0.1 10^3/uL (0.0-0.2); BASO % 1.4 % (0.0-1.0); EOS # 0.3 10^3/uL (0.0-0.5); EOS % 4.4 % (0.0-3.0); HEMATOCRIT 46.6 % (36.0-47.0); HEMOGLOBIN 13.3 g/dl (12.0-15.5); LYMPH # 1.1 10^3/uL (1.5-5.0); LYMPH % 19.4 % (24.0-44.0); MEAN CORPUSCULAR HEMOGLOBIN 27.1 pg (27.0-33.0); MEAN CORPUSCULAR HGB CONC 28.5 g/dl (32.0-36.5); MEAN CORPUSCULAR VOLUME 95.1 fl (80.0-96.0); MONO % 17.2 % (0.0-5.0); NEUTROPHILS # 3.3 10^3/uL (1.5-8.5); NEUTROPHILS % 57.4 % (36.0-66.0); PLATELET COUNT, AUTOMATED 190 10^3/uL (150-450); WHITE BLOOD COUNT 5.7 10^3/uL (4.0-10.0)
--- NOTE | 2020-02-29 13:07 | IPNPDOC ---
Text Note Date of Service The patient was seen on 02/29/20. NOTE Subjective: Patient seen and examined this morning at bedside. No acute overnight events reported. Patient has no new medical complaints. Concerned regarding her placement as she states she only wishes to stay with [facility]. 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 Blood pressure appears to be stable on the current dose of atenolol 100 mg daily. #Acute on chronic diastolic heart failure exacerbation with cor pulmonale with preserved systolic function, ejection fraction 65% -s/p iv lasix q6hrs -remains net negative balance - Her admission weight was 201.9 -no with worsening contraction alkalosis -on strict intake and output, daily weights, and fluid restriction -discontinued iv lasix, as she appears to be euvolemic -trial of oral torsemide 40mg bid -repeat mg, mp at 2200 to replete electrolytes if needed. # New-onset atrial fibrillation. -rate controlled -s/p multiple doses of digoxin and one dose of amiodarone -s/p increasing doses of atenolol from 50 mg at home to 75, and currently at 100 mg with holding parameters. -Patient was apprehensive about being on anticoagulation in light of prior history of gastric ulcer and massive gastrointestinal (GI) bleed but, currently, hemoglobin/hematocrit remain stable with no signs of active bleeding, hematemesis, bright red blood per rectum, black or tarry stools. -Blood pressure appears to be stable on the current dose of atenolol 100 mg daily. -c/o slight abd discomfort today, so will need to check for repeat h&h in the am. #Acute on chronic hypercapnic/hypoxic respiratory failure secondary to CHF exacerbation. -noncompliant with CPAP. -RN often finds patient off CPAP at night, because "the air blows in my eyes, and I can't sleep. It bothers me." #HTN -on atenolol -trial of po torsemide bid to keep euvolemic from CHF. #Stage II sacral decubitus, that was present on hospital admission. -on Rafat by mouth twice a day per price analyst's recommendation. -turned and repositioned every 2 hours with an air mattress. -Wound care per physical therapy. -She follows with [facility] wound facility as outpatient. -takes 5 staff members to turn the patient. wali at baseline. #History of pyoderma gangrenosum with chronic lower extremity venous ulcers. - on chronic Cellcept and every 2 day dressing changes. -no new recommendations by Dr. estrada. #History of kidney stones that required stenting. Currently has no issues with normal creatinine. #Obesity hypoventilation syndrome with increase in severe pulmonary hypertension requiring bilevel positive airway pressure (BiPAP) therapy for WAN. Currently stable. #Chronic back pain. On Tylenol. # Deep venous thrombosis (DVT) prophylaxis. On Eliquis. #History of gastric ulcer with massive gi bleed. monitor for symptomatic anemia, overt GI bleed, and repeat h&h while on eliquis. -on ppi and carafate. disposition: pending placement VS,Fishbone, I+O VS, Fishbone, I+O Laboratory Tests 02/29/20 05:26 02/29/20 05:29 Vital Signs Date Time Temp Pulse Resp B/P (MAP) Pulse Ox O2 Delivery O2 Flow Rate FiO2 02/29/20 08:59 88 107/54 02/29/20 06:00 97.7 16 90 NIPPV (BIPAP/CPAP) 4.0 I&O- Last 24 Hours up to 6 AM 02/29/20 06:00 Intake Total 1100 ml Output Total 7350 ml Balance -6250 ml HAMLET GURROLA MD Feb 29, 2020 13:07
[2020-02-29 14:00] VITALS: BP 110/69
[2020-02-29 16:24] VITALS: O2SAT 89
[2020-02-29 22:00] VITALS: BP 112/48
[2020-03-01] MEDS: IPRATROPIUM 0.5MG/ALBUTEROL 2.5MG INH SOL UD 3ML (DUONEB) NEB SCH ×6 (00:23→19:23)
[2020-03-01] MEDS: ACETAMINOPHEN 500 MG TAB PO PRN ×3 (00:59→21:53)
[2020-03-01 02:34] VITALS: O2SAT 88
[2020-03-01 05:44] LABS: HEMATOCRIT 46.7 % (36.0-47.0); HEMOGLOBIN 14.1 g/dl (12.0-15.5); MEAN CORPUSCULAR HGB CONC 30.2 g/dl (32.0-36.5); MEAN CORPUSCULAR VOLUME 92.8 fl (80.0-96.0); PLATELET COUNT, AUTOMATED 221 10^3/uL (150-450); RED BLOOD COUNT 5.03 10^6/uL (4.00-5.40); WHITE BLOOD COUNT 7.1 10^3/uL (4.0-10.0)
[2020-03-01 06:00] VITALS: BP_SYST 142; BP_SYST 90; BP_DIAS 47; BP_DIAS 66
[2020-03-01] MEDS: SLF 3 ML SYR IV SCH (06:00)
[2020-03-01 06:07] LABS: BLOOD UREA NITROGEN 22 MG/DL (7-18); CARBON DIOXIDE LEVEL 45 MEQ/L (21-32); CHLORIDE LEVEL 83 MEQ/L (98-107); CREATININE FOR GFR 0.93 MG/DL (0.55-1.30); GLOMERULAR FILTRATION RATE > 60.0 (>39); GLUCOSE, FASTING 94 MG/DL (70-100); MAGNESIUM LEVEL 1.7 MG/DL (1.8-2.4); POTASSIUM SERUM 3.8 MEQ/L (3.5-5.1); SODIUM LEVEL 131 MEQ/L (136-145)
[2020-03-01] MEDS: LEVOTHYROXINE 150MCG TABLET (0.15MG) PO SCH (06:07)
[2020-03-01] MEDS: LEVOTHYROXINE 25MCG TABLET (0.025MG) PO SCH (06:07)
[2020-03-01] MEDS: SODIUM CHLORIDE 0.9% INJ 10 ML SYR IV SCH ×2 (06:07→17:30)
[2020-03-01] MEDS ORDERED: MAG SULF 1GM/100ML (MAG RUN) 1 GM in IV 1 EA IV ONE (08:00)
[2020-03-01] MEDS: SUCRALFATE SUSP 1GM/10ML UD PO SCH ×4 (08:09→21:51)
[2020-03-01] MEDS: MYCOPHENOLATE MOFETIL 250 MG CAP (J7517) PO SCH ×2 (08:10→12:07)
[2020-03-01] MEDS: APIXABAN 5 MG TAB (ELIQUIS) PO SCH ×2 (08:11→17:30)
[2020-03-01] MEDS: POTASSIUM CHLORIDE 10 MEQ SR TABLET PO SCH ×3 (08:11→21:51)
[2020-03-01] MEDS: TORSEMIDE 20 MG TAB PO SCH ×2 (08:11→16:07)
[2020-03-01] MEDS: PANTOPRAZOLE 40MG TAB (PROTONIX) PO SCH ×2 (08:11→21:51)
[2020-03-01] MEDS: DOCUSATE SODIUM 100 MG CAP PO SCH ×3 (08:11→21:00)
[2020-03-01] MEDS: atenoloL 50 MG TAB PO SCH (08:14)
[2020-03-01] MEDS: NYSTATIN 100,000 UNITS/GM TOPICAL PWD 15 GM TOP SCH ×3 (08:15→21:52)
[2020-03-01] MEDS: SODIUM CHLORIDE 0.9% INJ 10 ML SYR IV PRN (09:50)
--- NOTE | 2020-03-01 11:22 | IPNPDOC ---
Text Note Date of Service The patient was seen on 03/01/20. NOTE Subjective: Patient seen and examined this morning at bedside. No acute overnight events reported. Patient has no new medical complaints. 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 Blood pressure appears to be stable on the current dose of atenolol 100 mg daily. #Acute on chronic diastolic heart failure exacerbation with cor pulmonale with preserved systolic function, ejection fraction 65% -s/p iv lasix q6hrs -remains net negative balance - Her admission weight was 201.9 -no with worsening contraction alkalosis -on strict intake and output, daily weights, and fluid restriction -discontinued iv lasix, as she appears to be euvolemic -trial of oral torsemide 40mg bid - developed hyponatremia - reduced dosage to 20 BID -repeat mg, mp at 2200 to replete electrolytes if needed. # New-onset atrial fibrillation. -rate controlled -s/p multiple doses of digoxin and one dose of amiodarone -s/p increasing doses of atenolol from 50 mg at home to 75, and currently at 100 mg with holding parameters. -Patient was apprehensive about being on anticoagulation in light of prior history of gastric ulcer and massive gastrointestinal (GI) bleed but, currently, hemoglobin/hematocrit remain stable with no signs of active bleeding, hematemesis, bright red blood per rectum, black or tarry stools. -Blood pressure appears to be stable on the current dose of atenolol 100 mg daily. -c/o slight abd discomfort today, so will need to check for repeat h&h in the am. #Acute on chronic hypercapnic/hypoxic respiratory failure secondary to CHF ex acerbation. -noncompliant with CPAP. -RN often finds patient off CPAP at night, because "the air blows in my eyes, and I can't sleep. It bothers me." #HTN -on atenolol -trial of po torsemide bid to keep euvolemic from CHF. #Stage II sacral decubitus, that was present on hospital admission. -on Rafat by mouth twice a day per esl tutor's recommendation. -turned and repositioned every 2 hours with an air mattress. -Wound care per physical therapy. -She follows with [facility] wound facility as outpatient. -takes 5 staff members to turn the patient. wali at baseline. #History of pyoderma gangrenosum with chronic lower extremity venous ulcers. - on chronic Cellcept and every 2 day dressing changes. -no new recommendations by Dr. estrada. #History of kidney stones that required stenting. Currently has no issues with normal creatinine. #Obesity hypoventilation syndrome with increase in severe pulmonary hypertension requiring bilevel positive airway pressure (BiPAP) therapy for WAN. Currently stable. #Chronic back pain. On Tylenol. # Deep venous thrombosis (DVT) prophylaxis. On Eliquis. #History of gastric ulcer with massive gi bleed. monitor for symptomatic anemia, overt GI bleed, and repeat h&h while on eliquis. -on ppi and carafate. disposition: pending placement at [facility] tomorrow VS,Fishbone, I+O VS, Fishbone, I+O Laboratory Tests 03/01/20 05:22 Vital Signs Date Time Temp Pulse Resp B/P (MAP) Pulse Ox O2 Delivery O2 Flow Rate FiO2 03/01/20 08:14 98 113/68 03/01/20 06:00 97.9 20 86 Nasal Cannula 2.0 I&O- Last 24 Hours up to 6 AM 03/01/20 06:00 Intake Total 1110 ml Output Total 6600 ml Balance -5490 ml HAMLET GURROLA MD Mar 01, 2020 11:22
[2020-03-01 13:33] VITALS: O2SAT 88
[2020-03-01 14:00] VITALS: BP 124/87
[2020-03-01 22:00] VITALS: BP 130/56
[2020-03-02] MEDS: IPRATROPIUM 0.5MG/ALBUTEROL 2.5MG INH SOL UD 3ML (DUONEB) NEB SCH ×4 (00:25→11:25)
[2020-03-02 06:00] VITALS: BP 148/72
[2020-03-02 06:02] LABS: HEMATOCRIT 46.3 % (36.0-47.0); HEMOGLOBIN 13.6 g/dl (12.0-15.5); MEAN CORPUSCULAR HEMOGLOBIN 27.1 pg (27.0-33.0); MEAN CORPUSCULAR HGB CONC 29.4 g/dl (32.0-36.5); MEAN CORPUSCULAR VOLUME 92.2 fl (80.0-96.0); PLATELET COUNT, AUTOMATED 223 10^3/uL (150-450); RED BLOOD COUNT 5.02 10^6/uL (4.00-5.40); WHITE BLOOD COUNT 5.5 10^3/uL (4.0-10.0)
[2020-03-02] MEDS: LEVOTHYROXINE 150MCG TABLET (0.15MG) PO SCH (06:16)
[2020-03-02] MEDS: LEVOTHYROXINE 25MCG TABLET (0.025MG) PO SCH (06:16)
[2020-03-02] MEDS: SODIUM CHLORIDE 0.9% INJ 10 ML SYR IV PRN (06:17)
[2020-03-02] MEDS: SODIUM CHLORIDE 0.9% INJ 10 ML SYR IV SCH (06:17)
[2020-03-02 06:23] LABS: BLOOD UREA NITROGEN 25 MG/DL (7-18); CALCIUM LEVEL 9.2 MG/DL (8.8-10.2); CARBON DIOXIDE LEVEL 44 MEQ/L (21-32); CHLORIDE LEVEL 82 MEQ/L (98-107); CREATININE FOR GFR 0.92 MG/DL (0.55-1.30); GLOMERULAR FILTRATION RATE > 60.0 (>39); GLUCOSE, FASTING 101 MG/DL (70-100); MAGNESIUM LEVEL 1.9 MG/DL (1.8-2.4); POTASSIUM SERUM 3.6 MEQ/L (3.5-5.1); SODIUM LEVEL 132 MEQ/L (136-145)
[2020-03-02] MEDS: NYSTATIN 100,000 UNITS/GM TOPICAL PWD 15 GM TOP SCH (08:46)
[2020-03-02] MEDS: DOCUSATE SODIUM 100 MG CAP PO SCH (08:47)
[2020-03-02] MEDS: SUCRALFATE SUSP 1GM/10ML UD PO SCH ×2 (08:47→12:00)
[2020-03-02] MEDS: APIXABAN 5 MG TAB (ELIQUIS) PO SCH (08:47)
[2020-03-02] MEDS: PANTOPRAZOLE 40MG TAB (PROTONIX) PO SCH (08:47)
[2020-03-02] MEDS: MYCOPHENOLATE MOFETIL 250 MG CAP (J7517) PO SCH ×2 (08:47→12:30)
[2020-03-02] MEDS: TORSEMIDE 20 MG TAB PO SCH (08:47)
[2020-03-02] MEDS: ACETAMINOPHEN 500 MG TAB PO PRN (08:48)
[2020-03-02] MEDS: POTASSIUM CHLORIDE 10 MEQ SR TABLET PO SCH ×2 (08:48→09:00)
[2020-03-02 08:50] VITALS: BP 103/59
[2020-03-02] MEDS: atenoloL 50 MG TAB PO SCH (08:50)
[2020-03-02 09:00] VITALS: O2SAT 90
[2020-03-02] MEDS ORDERED: FLEET ENEMA PR PRN (10:00)
[2020-03-02] MEDS ORDERED: ATEN50TA2 PO (10:56)
[2020-03-02] MEDS ORDERED: SUCR1ORA PO (10:56)
[2020-03-02] MEDS ORDERED: ELIQ5TAB PO (10:56)
[2020-03-02] MEDS ORDERED: TORS20TA2 PO (10:56)
--- NOTE | 2020-03-03 15:16 | DS.PDOC ---
Discharge Summary General Date of Admission February 21, 2020 at 11:37 Date of Discharge 03/02/20 Discharge Summary DISCHARGE DIAGNOSES: #Acute on chronic diastolic heart failure exacerbation with cor pulmonale with preserved systolic function, ejection fraction 65% # New-onset atrial fibrillation. #Acute on chronic hypercapnic/hypoxic respiratory failure secondary to CHF exacerbation. #HTN #Stage II sacral decubitus, that was present on hospital admission. #History of pyoderma gangrenosum with chronic lower extremity venous ulcers. #History of kidney stones that required stenting. #Obesity hypoventilation syndrome with increase in severe pulmonary hypertension requiring bilevel positive airway pressure (BiPAP) therapy for WAN. #Chronic back pain #morbid obesity #medical non-compliance #History of gastric ulcer with massive gi bleed COMPLICATIONS/CHIEF COMPLAINT: Weakness. HISTORY OF PRESENT ILLNESS: This is a 74-year-old female who lives at home, managed by her and a caregiver, usually walks with her walker,with morbid obesity, body mass index (BMI) of 75.2, obstructive sleep apnea compliant with CPAP, obesity hypoventilation, chronic respiratory failure with hypoxia and hypercarbia, hypertension, hypothyroidism, history of recurrent urinary tract infections (UTIs) with extended spectrum beta-lactamase (ESBL) Escherichia (E) coli, history of perforated gastric ulcer, pyoderma gangrenosum, on chronic immunosuppressive therapy, chronic venous stasis ulcers, bilateral prostatic knee replacement, and kidney stones, presents to the emergency room with generalized weakness with limited mobility, worsening shortness of breath , poor appetite. Patient was in the bathroom today and could not get up from the commode even with the help of several family members. So EMS/fire dept was called and was brought to the ED. Her mobility has been getting progressively worse at home and has been difficult to manage at home. As per he is unable to take care of hr at home anymore and would like social services manager to assess living situation. She was noted to be hypoxic in the ED and with High bicarb in basic. ABG showed pH of 7.22/ 88/56. CXR showed features of CHF. Patient was admitted for acute on chronic respiratory failure with hypoxia and hypercarbia felt to be due to fluid overload , CHF exacerbation. HOSPITAL COURSE: #Acute on chronic diastolic heart failure exacerbation with cor pulmonale with preserved systolic function, ejection fraction 65% -s/p iv lasix q6hrs -trial of oral torsemide 40mg bid - developed hyponatremia - reduced dosage to 20 BID # New-onset atrial fibrillation. -rate controlled -s/p multiple doses of digoxin and one dose of amiodarone -s/p increasing doses of atenolol from 50 mg at home to 75, and currently at 100 mg with holding parameters. -Patient was apprehensive about being on anticoagulation in light of prior history of gastric ulcer and massive gastrointestinal (GI) bleed but, currently, hemoglobin/hematocrit remain stable with no signs of active bleeding, hematemesis, bright red blood per rectum, black or tarry stools. -Blood pressure appears to be stable on the current dose of atenolol 100 mg daily. #Acute on chronic hypercapnic/hypoxic respiratory failure secondary to CHF exacerbation. -noncompliant with CPAP. -RN often finds patient off CPAP at night, because "the air blows in my eyes, and I can't sleep. It bothers me." #HTN -on atenolol -trial of po torsemide bid to keep euvolemic from CHF. #Stage II sacral decubitus, that was present on hospital admission. -on Rafat by mouth twice a day per tire shop manager's recommendation. -Wound care per physical therapy. -She follows with [facility] wound facility as outpatient. -takes 5 staff members to turn the patient. wali at baseline. #History of pyoderma gangrenosum with chronic lower extremity venous ulcers. - on chronic Cellcept and every 2 day dressing changes. -no new recommendations by Dr. estrada. #History of kidney stones that required stenting. Currently has no issues with normal creatinine. #Obesity hypoventilation syndrome with increase in severe pulmonary hypertension requiring bilevel positive airway pressure (BiPAP) therapy for WAN. Currently stable. #Chronic back pain. On Tylenol. # Deep venous thrombosis (DVT) prophylaxis. On Eliquis as above #History of gastric ulcer with massive gi bleed. monitor for symptomatic anemia, overt GI bleed, and repeat h&h while on eliquis. -on ppi and carafate. DISCHARGE MEDICATIONS: Please see below. ALLERGIES: Please see below. PHYSICAL EXAMINATION ON DISCHARGE: VITAL SIGNS: Please see below. VITALS/I/O: see below General: NAD, lying comfortably in bed HEENT: NC/AT, EOMI Lungs: CTA B/L, diminished breath sounds Heart: +S1S2, Abd: soft, NT, morbidly obese, +BS Ext: chronic venous stasis changes, chronic edema LABORATORY DATA: Please see below. ACTIVITY: [As tolerated]. DISPOSITION: [facility]. DISCHARGE INSTRUCTIONS: 1. PCP in 3-5 days DISCHARGE CONDITION: [Stable]. TIME SPENT ON DISCHARGE: 35 minutes. Vital Signs/I&Os Vital Signs Date Time Temp Pulse Resp B/P (MAP) Pulse Ox O2 Delivery O2 Flow Rate FiO2 03/02/20 09:00 2.0 03/02/20 09:00 90 Nasal Cannula 03/02/20 08:50 82 103/59 03/02/20 06:00 97.1 18 I&O- Last 24 Hours up to 6 AM 03/03/20 06:00 Intake Total 320 ml Output Total 25 ml Balance 295 ml Microbiology Microbiology 02/26/20 Coronavirus COVID-19 PCR (LARISA) - Final, Complete Discharge Medications Scheduled Apixaban (Eliquis) 5 Mg Tablet, 5 MG PO BID@0800,1800 Atenolol (Atenolol) 50 Mg Tablet, 100 MG PO DAILY Ergocalciferol (Vitamin D2) (Vitamin D2) 50,000 Units Cap, 50,000 UNITS PO QWEEK, (Reported) SATURDAYS Levothyroxine Sodium (Synthroid) 175 Mcg Tablet, 175 MCG PO DAILY, (Reported) PT TAKES BRAND NAME SYNTHROID Lutein/Zeaxanthin (Lutein-Zeaxanthin 20-1 mg Sfgl) 1 Each Capsule, 1 CAP PO DAILY, (Reported) Melatonin (Melatonin) 5 Mg Tab.rapdis, 15 MG PO QHS, (Reported) Multivitamin (Multivitamins) 1 Each Capsule, 1 CAP PO DAILY, (Reported) Mycophenolate Mofetil (Mycophenolate Mofetil) 500 Mg Tab, 1,500 MG PO BID, (Reported) TAKES IN MORNING AND AT LUNCHTIME Nystatin (Nystatin Powder) 15 Gm Powder, 1 APLCT TOP BID, (Reported) APPLY TO CREASES ON LEGS Nystatin (Nystatin) 15 Gm Cream..g., 1 APPLIC TOP DAILY, (Reported) USES ON LEGS Sucralfate (Sucralfate) 1 Gm/10 Ml Oral.susp, 1 GM PO ACHS Tacrolimus (Protopic) 0.1 % Oin, 1 APPLIC EXT Q2D, (Reported) USES ON LEGS AT NIGHT Torsemide (Torsemide) 20 Mg Tablet, 20 MG PO BID@,17 Scheduled PRN Acetaminophen with Codeine (Acetaminophen-Cod #3 Tablet) 1 Each Tab, 1 TAB PO QID PRN for PAIN, (Reported) Albuterol Sulfate (Ventolin Hfa) 108 Mcg/Act Aer, 2 PUFFS INH Q4H PRN for SHORTNESS OF BREATH, (Reported) Loperamide HCl (Loperamide) 2 Mg Tablet, 1 MG PO DAILY PRN for DIARRHEA, (Reported) Allergies Coded Allergies: Penicillins (Verified Allergy, Intermediate, localized reaction at injection site, 02/21/20) TAPE (Verified Allergy, Intermediate, PLASTIC TAPE - RASH, 03/05/17) bee venom protein (honey bee) (Verified Allergy, Intermediate, localized swelling at site, 02/21/20) sulfamethoxazole (Verified Allergy, Unknown, 06/03/19) HAMLET GURROLA MD Mar 03, 2020 15:16
== END 2020-03-02 12:56 | DRG 291 ==
LOC: M ED 08:19 → EDBD 08:19 → M ED INP 11:37 → EEVIPCON 11:37 → ENRESERV 11:50 → M PCU 15:40 → M MSPAV 02-28 16:52
PROVIDERS: ADMIT Internal Medicine Nephrology; ATTEND Internal Medicine
PROC: 02HV33Z Insertion of Infusion Device into Superior Vena Cava, Percutaneous Approach (ICD-10-PCS; principal; 2020-02-25 16:00)
DX: I11.0 Hypertensive heart disease with heart failure (principal); J96.21 Acute and chronic respiratory failure with hypoxia; E66.2 Morbid (severe) obesity with alveolar hypoventilation; L88 Pyoderma gangrenosum; Z68.45 Body mass index [BMI] 70 or greater, adult; E87.1 Hypo-osmolality and hyponatremia; I48.91 Unspecified atrial fibrillation; Z91.19 Patient's noncompliance with other medical treatment and regimen; L89.152 Pressure ulcer of sacral region, stage 2; I27.81 Cor pulmonale (chronic); Z87.442 Personal history of urinary calculi; E03.9 Hypothyroidism, unspecified; Z96.651 Presence of right artificial knee joint; Z96.652 Presence of left artificial knee joint; I50.33 Acute on chronic diastolic (congestive) heart failure; Z79.899 Other long term (current) drug therapy; Z88.0 Allergy status to penicillin; Z91.030 Bee allergy status; Z88.2 Allergy status to sulfonamides; I27.20 Pulmonary hypertension, unspecified; K21.9 Gastro-esophageal reflux disease without esophagitis; F41.9 Anxiety disorder, unspecified

== ENCOUNTER → 2020-03-13 | Outpatient (REF) ==
[~2020-03-13] MED LIST changes: +ELIQ5TAB PO; +SUCR1ORA PO; +TORS20TA2 PO
[2020-03-13 15:03] LABS: HEMATOCRIT 44.8 % (36.0-47.0); HEMOGLOBIN 13.2 g/dl (12.0-15.5); MEAN CORPUSCULAR HGB CONC 29.5 g/dl (32.0-36.5); MEAN CORPUSCULAR VOLUME 94.9 fl (80.0-96.0); PLATELET COUNT, AUTOMATED 249 10^3/uL (150-450); RED BLOOD COUNT 4.72 10^6/uL (4.00-5.40); WHITE BLOOD COUNT 5.7 10^3/uL (4.0-10.0)
[2020-03-13 15:47] LABS: BLOOD UREA NITROGEN 37 MG/DL (7-18); CALCIUM LEVEL 10.1 MG/DL (8.8-10.2); CARBON DIOXIDE LEVEL 43 MEQ/L (21-32); CHLORIDE LEVEL 86 MEQ/L (98-107); CREATININE FOR GFR 0.69 MG/DL (0.55-1.30); GLOMERULAR FILTRATION RATE > 60.0 (>39); GLUCOSE, FASTING 112 MG/DL (70-100); POTASSIUM SERUM 2.8 MEQ/L (3.5-5.1); SODIUM LEVEL 134 MEQ/L (136-145)
== END ==
LOC: SKLAB2 13:59
PROVIDERS: ATTEND Family Medicine
DX: K62.5 Hemorrhage of anus and rectum (principal)

== ENCOUNTER → 2020-03-13 | Outpatient (REF) ==
[2020-03-13 21:57] LABS: HEMATOCRIT 44.9 % (36.0-47.0); HEMOGLOBIN 13.5 g/dl (12.0-15.5); MEAN CORPUSCULAR HEMOGLOBIN 28.4 pg (27.0-33.0); MEAN CORPUSCULAR HGB CONC 30.1 g/dl (32.0-36.5); MEAN CORPUSCULAR VOLUME 94.3 fl (80.0-96.0); PLATELET COUNT, AUTOMATED 278 10^3/uL (150-450); RED BLOOD COUNT 4.76 10^6/uL (4.00-5.40); WHITE BLOOD COUNT 5.3 10^3/uL (4.0-10.0)
== END ==
LOC: SKLAB2 20:00
PROVIDERS: ATTEND Nurse Practitioner Family
DX: K62.5 Hemorrhage of anus and rectum (principal)

== ENCOUNTER → 2020-03-14 | Outpatient (REF) ==
[2020-03-14 09:06] LABS: HEMATOCRIT 45.6 % (36.0-47.0); HEMOGLOBIN 13.7 g/dl (12.0-15.5); MEAN CORPUSCULAR HEMOGLOBIN 28.5 pg (27.0-33.0); PLATELET COUNT, AUTOMATED 266 10^3/uL (150-450); WHITE BLOOD COUNT 5.3 10^3/uL (4.0-10.0)
== END ==
LOC: SKLAB2 10:20
PROVIDERS: ATTEND Nurse Practitioner Family
DX: K62.5 Hemorrhage of anus and rectum (principal)

== ENCOUNTER → 2020-03-16 | Outpatient (REF) ==
[2020-03-16 09:46] LABS: HEMATOCRIT 44.5 % (36.0-47.0); HEMOGLOBIN 13.3 g/dl (12.0-15.5); MEAN CORPUSCULAR HEMOGLOBIN 28.5 pg (27.0-33.0); MEAN CORPUSCULAR HGB CONC 29.9 g/dl (32.0-36.5); MEAN CORPUSCULAR VOLUME 95.5 fl (80.0-96.0); PLATELET COUNT, AUTOMATED 232 10^3/uL (150-450); RED BLOOD COUNT 4.66 10^6/uL (4.00-5.40); WHITE BLOOD COUNT 4.3 10^3/uL (4.0-10.0)
[2020-03-16 10:22] LABS: BLOOD UREA NITROGEN 36 MG/DL (7-18); CALCIUM LEVEL 9.3 MG/DL (8.8-10.2); CARBON DIOXIDE LEVEL 37 MEQ/L (21-32); CHLORIDE LEVEL 90 MEQ/L (98-107); CREATININE FOR GFR 0.76 MG/DL (0.55-1.30); GLOMERULAR FILTRATION RATE > 60.0 (>39); GLUCOSE, FASTING 97 MG/DL (70-100); POTASSIUM SERUM 3.6 MEQ/L (3.5-5.1); SODIUM LEVEL 135 MEQ/L (136-145)
== END ==
LOC: SKLAB2 07:00
PROVIDERS: ATTEND Family Medicine
DX: K62.5 Hemorrhage of anus and rectum (principal)

== ENCOUNTER → 2020-03-30 | Outpatient (REF) ==
[2020-03-30 08:50] LABS: BLOOD UREA NITROGEN 28 MG/DL (7-18); CALCIUM LEVEL 9.3 MG/DL (8.8-10.2); CARBON DIOXIDE LEVEL 31 MEQ/L (21-32); CHLORIDE LEVEL 100 MEQ/L (98-107); GLOMERULAR FILTRATION RATE > 60.0 (>39); GLUCOSE, FASTING 96 MG/DL (70-100); POTASSIUM SERUM 4.4 MEQ/L (3.5-5.1); SODIUM LEVEL 139 MEQ/L (136-145)
== END ==
LOC: SKLAB2 08:28
PROVIDERS: ATTEND Nurse Practitioner Family
DX: I50.9 Heart failure, unspecified (principal)

== ENCOUNTER 2020-06-24 19:38 | Inpatient (IN) | payer MEDICARE, OTHER ==
[~2020-06-24] VITALS: Ht 157.5 cm; Wt 181.1 kg
[2020-06-24] MEDS ORDERED: TORS20TA2 PO (20:08)
[2020-06-24] MEDS ORDERED: methylPREDNISolone 125MG 2ML VIAL IV ONE (20:15)
[2020-06-24] MEDS ORDERED: COMBIVENT RESPIMAT 100-20MCG INHALER 4GM INH ONE (20:15)
--- NOTE | 2020-06-24 20:46 | REPVR ---
PROCEDURE INFORMATION: Exam: XR Chest, 1 View Exam date and time: 06/24/2020 8:14 PM Age: 75 years old Clinical indication: Cough and dyspnea; Additional info: Dyspnea/cough TECHNIQUE: Imaging protocol: XR of the chest Views: 1 view. COMPARISON: [facility] PORTABLE CHEST X-RAY 02/23/2020 6:49 AM FINDINGS: Lungs: There is subtle opacification in the retrocardiac region which may represent infiltrates. Pleural space: Small right pleural effusion with extension into the minor fissure. Heart/Mediastinum: Cardiomegaly. Bones/joints: Degenerative changes of the spine. Metallic hardware in the right humerus. IMPRESSION: Small right pleural effusion with extension into the minor fissure. Cardiomegaly. Retrocardiac patchy opacification which may represent infiltrates. Cardiomegaly. Electronically signed by: Murtaza Farias On 06/24/2020 20:46:24 PM
[2020-06-24 20:50] LABS: BASO % 0.5 % (0.0-1.0); EOS % 0.2 % (0.0-3.0); HEMATOCRIT 41.7 % (36.0-47.0); LYMPH # 0.6 10^3/uL (1.5-5.0); LYMPH % 10.5 % (24.0-44.0); MEAN CORPUSCULAR HEMOGLOBIN 30.6 pg (27.0-33.0); MEAN CORPUSCULAR HGB CONC 28.8 g/dl (32.0-36.5); MEAN CORPUSCULAR VOLUME 106.4 fl (80.0-96.0); MONO # 0.8 10^3/uL (0.0-0.8); MONO % 12.8 % (0.0-5.0); NEUTROPHILS # 4.5 10^3/uL (1.5-8.5); NEUTROPHILS % 75.7 % (36.0-66.0); PLATELET COUNT, AUTOMATED 225 10^3/uL (150-450); RED BLOOD COUNT 3.92 10^6/uL (4.00-5.40); WHITE BLOOD COUNT 5.9 10^3/uL (4.0-10.0)
[2020-06-24 21:24] LABS: ALBUMIN 3.1 GM/DL (3.2-5.2); ALT/SGPT 13 U/L (12-78); BILIRUBIN,DIRECT 0.4 MG/DL (0.0-0.2); BILIRUBIN,TOTAL 0.8 MG/DL (0.2-1.0); BLOOD UREA NITROGEN 19 MG/DL (7-18); CALCIUM LEVEL 8.9 MG/DL (8.8-10.2); CARBON DIOXIDE LEVEL 42 MEQ/L (21-32); CHLORIDE LEVEL 90 MEQ/L (98-107); CK-MB VALUE MASS < 1.0 NG/ML (<3.6); CPK CREATINE PHOSPHOKINASE 20 U/L (26-192); CREATININE FOR GFR 0.74 MG/DL (0.55-1.30); GLOMERULAR FILTRATION RATE > 60.0 (>39); GLUCOSE, FASTING 114 MG/DL (70-100); NT-PRO BNP 5191 PG/ML (<125); POTASSIUM SERUM 5.1 MEQ/L (3.5-5.1); SODIUM LEVEL 133 MEQ/L (136-145); TOTAL PROTEIN 7.2 GM/DL (6.4-8.2); TROPONIN I < 0.02 NG/ML (< 0.10)
[2020-06-24] MEDS ORDERED: ISOVUE-370 76% 100ML VIAL As Ordered ONE (21:58)
[2020-06-24] MEDS ORDERED: FUROSEMIDE 100MG/10ML VIAL (J1940) IV ONE (23:30)
--- NOTE | 2020-06-24 23:32 | HPEPDOC ---
[facility] Medical History & Physical Date of Admission Jun 24, 2020 Date of Service: Jun 24, 2020 Attending Physician: SETH MCBRIDE MD History and Physical TIME OF SERVICE: 11:55 PM CHIEF COMPLAINT: Shortness of breath HISTORY OF PRESENT ILLNESS: This 75-year-old female presented with complaints of shortness of breath that began on , she came in to the hospital because she began to "panic" feel dizzy, feeling lethargic, and her hands were shaking. She denied having chest pain or changes in her chronic bilateral lower extremity swelling. She denied eating out, eating more salt than usual, or drinking more fluid than usual. She admitted to not using her CPAP regularly. REVIEW OF SYSTEMS: 12 point review of systems negative except as listed in HPI PAST MEDICAL/ SURGICAL HISTORY: OHA/WAN not compliant w CPAP Chronic oxygen-dependent respiratory failure Chronic diastolic CHF Chronic hypertension Atrial fibrillation on Eliquis Hypothyroidism History of perforated gastric ulcer Pyoderma gangrenosum/chronic lower extremity venous stasis Morbid obesity Unsteady gait History of nephrolithiasis and temporary stent placement Back pain History of sacral decubitus ulcer Bilateral knee replacement Total abdominal hysterectomy with bilateral salpingo-oophorectomy oophorectomy Lumpectomy Appendectomy Resection of skin cancer SOCIAL HISTORY: She doesn't smoke She lives with her FAMILY HISTORY: Mother had dementia and nephrolithiasis ALLERGIES: Please see below. HOME MEDICATIONS: Please see below. PHYSICAL EXAMINATION: Vital Signs Date Time Temp Pulse Resp B/P (MAP) Pulse Ox O2 Delivery O2 Flow Rate FiO2 06/24/20 19:48 112/87 (95) 06/24/20 19:49 98.6 102 20 Room Air 06/24/20 20:00 96 06/24/20 20:08 15.0 40 GEN: well-nourished / well developed/ NAD INTEGUMENT: not flushed/ not jaundice / both lower extremities chronic stasis changes are red and warm to the touch HEENT: neck short/ lips acyanotic /mucus membranes moist and pink CVS: RRR/NMRG/ radial pulses intact / + BLE edema LUNGS: able to speak full sentences without stopping to take a breath / no coughing / lungs are clear to auscultation bilaterally on room air ABDOMEN: Contour (obese) / soft & not tender with palpation MSK/EXTREMITIES: NCAT NEURO: CN 2-12 are grossly intact / speech is not dysarthric PSYCH: alert and oriented to person place and time/ able to understand and follow all commands LABORATORY DATA: 06/24/20 20:37 Immature Granulocyte % (Auto) 0.3, Neutrophils (%) (Auto) 75.7H, Lymphocytes (%) (Auto) 10.5L, Monocytes (%) (Auto) 12.8H, Eosinophils (%) (Auto) 0.2, Basophils (%) (Auto) 0.5, Neutrophils # (Auto) 4.5, Lymphocytes # (Auto) 0.6L, Monocytes # (Auto) 0.8, Eosinophils # (Auto) 0.0, Basophils # (Auto) 0.0, Nucleated Red Blood Cells % (auto) 0.0, Anion Gap 1L, Glomerular Filtration Rate > 60.0, Lactic Acid Level 1.4, Calcium Level 8.9, Total Bilirubin 0.8, Direct Bilirubin 0.4H, Aspartate Amino Transf (AST/SGOT) 18, Alanine Aminotransferase (ALT/SGPT) 13, Alkaline Phosphatase 101, Total Creatine Kinase 20L, Creatine Kinase MB < 1.0, Creatine Kinase MB Relative Index 5.00H, Troponin I < 0.02, ER-Ldi-L-Type Natriuretic Peptide 5191H, Total Protein 7.2, Albumin 3.1L, Albumin/Globulin Ratio 0.8L 06/24/20 20:56: POC pH (Misc Panel) 7.320L, POC Base Excess (Misc Panel) 16.0H, POC Saturated Percent O2 (Misc) 93L, POC pO2 (Misc Panel) 78.0L, POC pCO2 (Misc Panel) 80.8*H, POC HCO3 (Misc Panel) 41.7H, POC Total CO2 (Misc Panel) 44.0H 06/24/20 22:36: POC pH (Misc Panel) 7.320L, POC Base Excess (Misc Panel) 16.0H, POC Saturated Percent O2 (Misc) 93L, POC pO2 (Misc Panel) 79.0L, POC pCO2 (Misc Panel) 80.8*H, POC HCO3 (Misc Panel) 41.6H, POC Total CO2 (Misc Panel) 44.0H IMAGING: Chest xray "Small right pleural effusion with extension into the minor fissure. Cardiomegaly. Retrocardiac patchy opacification which may represent infiltrates. Cardiomegaly." MICROBIOLOGY: Respiratory panel negative/blood cultures pending ASSESSMENT: Ms. Sales is a 75 old with a history of chronic diastolic CHF, chronic O2 dependent respiratory failure, HTN, atrial fibrillation, hypothyroidism, pyoderma gangrenosum, and chronic lower extremity venous stasis, & morbid obesity percent with complaints of gradually worsening dyspnea, dizziness, lethargy, and shaking of her hands, which is likely due to combination of decompensated diastolic CHF and acute hypercapnia. PLAN: 1 Acute on Chronic Hypercapnic Respiratory Failure She has not been using her CPAP At her baseline she is O2 dependent The ABGs were reviewed they showed Respiratory acidosis with secondary metabolic alkalosis She has significant hypercapnia with a PaCO2 of >80; the hypercapnia may explain her lethargy and "shaking" hands Plan: admit to PCU/ table top nocturnal BIPAP with supplemental O2 / treat fluid overload / f/u repeat VBG in the morning 2 Dyspnea 2/2 acute on Chronic Diastolic CHF Fluid overload may have been triggered by Pneumonia. I don't suspect she has a PE causing the acute change in her breathing because she denied being less mobile, having worsening unilateral LE edema and she is on a NOAC Plan: f/u Is and Os /daily weights/restrict fluids to 2L and salt to 2g / hold PO furosemide and torsemide while taking IV lasix 3 Possible Retrocardiac PNA The only SIRS criteria she has is tachycardia CT chest could not be obtained because of her body habitus Plan: PO Levofloxacin 4 Hyponatremia Likely 2/2 fluid overload Plan: f/u serum osmolality / Lasix 5 Chronic hypertension Plan: Atenolol and Lasix 6 Atrial fibrillation Plan: Eliquis and atenolol 7 Hypothyroidism Plan: Levothyroxine 8 Debility / Unsteady Gait At her baseline she uses a walker Plan: PT consult for early mobilization 9 Morbid obesity BMI of 75.8 complicates care She also has co-existing OHS The patient declined bariatric bed. Plan: Follow-up A1c to screen for co-existing diabetes DVT PROPHYLAXIS: n/a she is on a NOAC DISPOSITION: likely home after at least 2 midnight's stay / PFS consult has been placed for discharge planning Laboratory Data CBC/BMP = Home Medications Scheduled Atenolol (Atenolol) 50 Mg Tablet, 50 MG PO DAILY Ergocalciferol (Vitamin D2) (Vitamin D2) 50,000 Units Cap, 50,000 UNITS PO QWEEK SATURDAYS Esomeprazole Magnesium (Nexium) 40 Mg Capsule.dr, 40 MG PO DAILY Furosemide (Furosemide) 40 Mg Tablet, 40 MG PO DAILY Levothyroxine Sodium (Synthroid) 175 Mcg Tablet, 175 MCG PO DAILY PT TAKES BRAND NAME SYNTHROID Lutein/Zeaxanthin (Lutein-Zeaxanthin 20-1 mg Sfgl) 1 Each Capsule, 1 CAP PO DAILY Melatonin (Melatonin) 5 Mg Tab.rapdis, 20 MG PO QHS Multivitamin (Multivitamins) 1 Each Capsule, 1 CAP PO DAILY Nystatin (Nystatin Powder) 15 Gm Powder, 1 APLCT TOP BID APPLY TO CREASES ON LEGS AND UNDER BREASTS Nystatin (Nystatin) 15 Gm Cream..g., 1 APPLIC TOP DAILY USES ON LEGS Tacrolimus (Protopic) 0.1 % Oin, 1 APPLIC EXT Q2D USES ON LEGS AT NIGHT Torsemide (Torsemide) 20 Mg Tablet, 20 MG PO DAILY Scheduled PRN Acetaminophen with Codeine (Acetaminophen-Cod #3 Tablet) 1 Each Tab, 1 TAB PO DAILY PRN for PAIN Albuterol Sulfate (Ventolin Hfa) 108 Mcg/Act Aer, 2 PUFFS INH Q4H PRN for SHORTNESS OF BREATH Loperamide HCl (Loperamide) 2 Mg Tablet, 1 MG PO DAILY PRN for DIARRHEA Allergies Coded Allergies: Penicillins (Verified Allergy, Intermediate, localized reaction at injection site, 06/24/20) TAPE (Verified Allergy, Intermediate, PLASTIC TAPE - RASH, 06/24/20) bee venom protein (honey bee) (Verified Allergy, Intermediate, localized swelling at site, 06/24/20) sulfamethoxazole (Verified Allergy, Unknown, 06/24/20) A-FIB/CHADSVASC A-FIB History Current/History of A-Fib/PAF?: Yes Current PO Anticoag Therapy: Yes SETH MCBRIDE MD Jun 24, 2020 23:32
[2020-06-24 23:55] LABS: OSMOLALITY SERUM 285 MOSM/KG (280-301)
[2020-06-24 23:57] LABS: MAGNESIUM LEVEL 2.1 MG/DL (1.8-2.4); PHOSPHORUS LEVEL 3.7 MG/DL (2.5-4.9)
[2020-06-25] VITALS (24 sets, daily range): BP systolic 124–158; BP diastolic 73–96; O2SAT 83–96
[2020-06-25] MEDS ORDERED: FURO40TA2 PO (00:04)
[2020-06-25] MEDS ORDERED: ATEN50TA2 PO (00:04)
[2020-06-25] MEDS ORDERED: NEXI40CA PO (00:04)
[2020-06-25] MEDS ORDERED: LOPERAMIDE 2 MG CAPLET PO PRN (00:15)
[2020-06-25] MEDS: NYSTATIN 100,000 UNITS/GM TOPICAL PWD 15 GM TOP SCH ×3 (02:40→20:34)
[2020-06-25] MEDS: RAMELTEON 8 MG TAB (ROZEREM) PO PRN (03:34)
[2020-06-25] MEDS: FUROSEMIDE 40MG/4ML VIAL (J1940) IV SCH ×5 (03:35→20:30)
[2020-06-25] MEDS ORDERED: LevoFLOXacin 750 MG TABLET PO SCH (06:00)
[2020-06-25 06:08] LABS: VENOUS BASE EXCESS 12.5 (-2.0-2.0); VENOUS HCO3 41.3 MEQ/L (23.0-27.0); VENOUS O2 SATURATION 84.5 % (60.0-80.0); VENOUS PARTIAL PRESSURE CO2 75.1 mmHg (38.0-50.0); VENOUS PARTIAL PRESSURE O2 50.5 mmHg (30.0-50.0); VENOUS PH 7.358 UNITS (7.330-7.430); VENOUS TOTAL CO2 43.6 MEQ/L (24.0-28.0)
[2020-06-25] MEDS: LEVOTHYROXINE 75MCG TABLET (0.075MG) PO SCH (06:08)
[2020-06-25] MEDS: LEVOTHYROXINE 100MCG TABLET (0.1MG) PO SCH (06:08)
[2020-06-25 06:25] LABS: HEMOGLOBIN 12.2 g/dl (12.0-15.5); MEAN CORPUSCULAR HEMOGLOBIN 30.6 pg (27.0-33.0); MEAN CORPUSCULAR VOLUME 105.3 fl (80.0-96.0); PLATELET COUNT, AUTOMATED 226 10^3/uL (150-450); RED BLOOD COUNT 3.99 10^6/uL (4.00-5.40); WHITE BLOOD COUNT 5.9 10^3/uL (4.0-10.0)
[2020-06-25 06:26] LABS: BLOOD UREA NITROGEN 19 MG/DL (7-18); CALCIUM LEVEL 9.3 MG/DL (8.8-10.2); CARBON DIOXIDE LEVEL 41 MEQ/L (21-32); CHLORIDE LEVEL 88 MEQ/L (98-107); CREATININE FOR GFR 0.66 MG/DL (0.55-1.30); GLOMERULAR FILTRATION RATE > 60.0 (>39); GLUCOSE, FASTING 125 MG/DL (70-100); MAGNESIUM LEVEL 2.2 MG/DL (1.8-2.4); POTASSIUM SERUM 4.7 MEQ/L (3.5-5.1); SODIUM LEVEL 133 MEQ/L (136-145)
[2020-06-25 06:30] LABS: HEMOGLOBIN A1c 5.3 %
[2020-06-25 08:18] LABS: ABG BASE EXCESS 14.6 (-2.0-2.0); ABG HCO3 42.6 MEQ/L (22.0-26.0); ABG O2 SATURATION 91.3 % (95.0-99.0); ABG PARTIAL PRESSURE O2 60.2 mmHg (75.0-100.0); ABG STANDARD HCO3 38.3 MEQ/L (22.0-26.0); ABG TOTAL CO2 44.8 MEQ/L (23.0-31.0); ABG pH (ARTERIAL) 7.397 UNITS (7.350-7.450)
[2020-06-25 08:26] LABS: ABG PARTIAL PRESSURE CO2 70.8 mmHg (35.0-45.0)
[2020-06-25] MEDS ORDERED: FLUBLOK(EGG FREE)(QUAD)INFLUENZA VACC 0.5ML SYRINGE 18YRS & OLDER IM ONE (09:00)
[2020-06-25] MEDS ORDERED: PNEUMOCOCCAL VACCINE 0.5ML SYRINGE (PNEUMOVAX 23) IM ONE (09:00)
[2020-06-25] MEDS: ENOXAPARIN 40MG/0.4ML SYRINGE (J1650 PER 10MG) SC SCH (09:02)
[2020-06-25] MEDS: PANTOPRAZOLE 40MG TAB (PROTONIX) PO SCH (09:02)
[2020-06-25] MEDS: atenoloL 50 MG TAB PO SCH (09:02)
--- NOTE | 2020-06-25 10:44 | IPNPDOC ---
Subjective Date Seen The patient was seen on 06/25/20. Subjective Chief Complaint/HPI Feels a little better today. Not confused. Wants the catheter to remain as she says she is incontinent and with lasix she is always going to be wet. She has a chair which pushes her up and then with her walker she can only pivot and use the commode. She sleeps in a recliner. Objective Physical Examination General Exam: Positive: Alert, Cooperative, No Acute Distress Eye Exam: Positive: PERRLA, Conjunctiva & lids normal, EOMI; Negative: Sclera icteric ENT Exam: Positive: Atraumatic, Mucous membr. moist/pink, Pharynx Normal Neck Exam: Positive: Supple, JVD; Negative: thyromegaly Chest Exam: Positive: Diminished (breath sounds); Negative: Rales, Rhonchi, Wheezing Heart Exam: Positive: Tachycardic, Irregular Rhythm, Normal S1, Normal S2; Negative: Gallops, Murmurs, Rubs Telemetry: Positive: Atrial fibrillation Abdomen Exam: Positive: Normal bowel sounds, Soft, Other (severely Obese with parietal edema , lymphedema of abdominal wall.) Extremity Exam: Positive: Edema; Negative: Clubbing, Cyanosis Skin Exam: Positive: Other skin issue (Bilateral lymphedema, stasis rubor and stasis dermatitis. ) Neuro Exam: Positive: Normal Speech, Normal Tone, Sensation Intact Assessment /Plan Assessment Ms. Sales is a 75 old with a history of chronic diastolic CHF, chronic O2 dependent respiratory failure, HTN, atrial fibrillation, hypothyroidism, pyoderma gangrenosum, and chronic lower extremity venous stasis, & morbid obesity presented with complaints of gradually worsening dyspnea, dizziness, lethargy, and shaking of her hands, which is likely due to combination of decompensated diastolic CHF and acute hypercapnia. Acute on Chronic Diastolic CHF does not take her lasix regularly as its difficult for her to use the commode frequently IV lasix continued. daily weights/restrict fluids to 2L and salt to 2g Acute Metabolic encephalopathy was confused and lethargic on admission due to hypercarbia worse than baseline. Now better Acute on Chronic hypoxic and Hypercapnic Respiratory Failure She has not been using her CPAP every day reports she uses if 4 to 5 times/ week The ABGs were reviewed they showed Respiratory acidosis with secondary metabolic alkalosis continue BIPAP and oxygen supplementation WAN/Obesity hypoventilation/restrictive lung disease continue with BIPAP The patient declined bariatric bed. A1c was 5.3 Severe Pulmonary hypertension with Corpulmonale BIPAP and Lasix. No pneumonia Possibly retrocardiac atelectasis. The only SIRS criteria she has is tachycardia due is due to Aib with rvr. CT chest could not be obtained because of her body habitus will stop levofloxacin. Hyponatremia Likely 2/2 fluid overload Chronic hypertension Atenolol and Lasix Chronic Atrial fibrillation with rvr Eliquis and atenolol Hypothyroidism Levothyroxine Debility / Unsteady Gait At her baseline she uses a walker, stand to pivot only. Has a lift chair Plan: PT consult for early mobilization Super Morbid obesity BMI of 75.8 complicates care Chronic bilateral venous stasis with stasis dermatitis Bilateral stasis rubor with lymphedema History of recurrent urinary tract infections (UTIs) with extended spectrum beta-lactamase (ESBL) Escherichia (E) coli, Pyoderma gangrenosum on immunosuppressive therapy on tracrolimus oint GERD History of perforated gastric ulcer PPI Intermittent Functional diarrhea loperamide prn H/o KIDNEY STONE REMOVED W/STENT PLACEMENT 08/10/16, URETERAL STENT REMOVAL 10/02/2016 Plan/VTE VTE Prophylaxis Ordered?: Yes [facility] Signs/I&O Vital Signs Date Time Temp Pulse Resp B/P (MAP) Pulse Ox O2 Delivery O2 Flow Rate FiO2 06/25/20 09:02 124 124/73 06/25/20 08:00 96.7 20 94 NIPPV (BIPAP/CPAP) 06/25/20 05:59 8.0 06/25/20 04:00 35 I&O- Last 24 Hours up to 6 AM 06/25/20 06:00 Intake Total 0 ml Output Total 2625 ml Balance -2625 ml Laboratory Data 24H LABS Laboratory Tests 2 06/24/20 20:37: Immature Granulocyte % (Auto) 0.3, Neutrophils (%) (Auto) 75.7H, Lymphocytes (%) (Auto) 10.5L, Monocytes (%) (Auto) 12.8H, Eosinophils (%) (Auto) 0.2, Basophils (%) (Auto) 0.5, Neutrophils # (Auto) 4.5, Lymphocytes # (Auto) 0.6L, Monocytes # (Auto) 0.8, Eosinophils # (Auto) 0.0, Basophils # (Auto) 0.0, Nucleated Red Blood Cells % (auto) 0.0, Anion Gap 1L, Glomerular Filtration Rate > 60.0, Osmolality 285, Lactic Acid Level 1.4, Calcium Level 8.9, Phosphorus Level 3.7, Magnesium Level 2.1, Total Bilirubin 0.8, Direct Bilirubin 0.4H, Aspartate Amino Transf (AST/SGOT) 18, Alanine Aminotransferase (ALT/SGPT) 13, Alkaline Phos phatase 101, Total Creatine Kinase 20L, Creatine Kinase MB < 1.0, Creatine Kinase MB Relative Index 5.00H, Troponin I < 0.02, NY-Uoc-S-Type Natriuretic Peptide 5191H, Total Protein 7.2, Albumin 3.1L, Albumin/Globulin Ratio 0.8L 06/24/20 20:56: POC pH (Misc Panel) 7.320L, POC Base Excess (Misc Panel) 16.0H, POC Saturated Percent O2 (Misc) 93L, POC pO2 (Misc Panel) 78.0L, POC pCO2 (Misc Panel) 80.8*H, POC HCO3 (Misc Panel) 41.7H, POC Total CO2 (Misc Panel) 44.0H 06/24/20 22:36: POC pH (Misc Panel) 7.320L, POC Base Excess (Misc Panel) 16.0H, POC Saturated Percent O2 (Misc) 93L, POC pO2 (Misc Panel) 79.0L, POC pCO2 (Misc Panel) 80.8*H, POC HCO3 (Misc Panel) 41.6H, POC Total CO2 (Misc Panel) 44.0H 06/25/20 05:38: Nucleated Red Blood Cells % (auto) 0.0, Anion Gap 4L, Glomerular Filtration Rate > 60.0, Calcium Level 9.3, Magnesium Level 2.2, Blood Gas Bicarbonate Standard 36.0, Venous Blood pH 7.358, Venous Blood Partial Pressure CO2 75.1H, Venous Blood Partial Pressure O2 50.5H, Venous Blood Total Carbon Dioxide 43.6H, Venous Blood HCO3 41.3H, Venous Blood Oxygen Saturation 84.5H, Venous Blood Base Excess 12.5H, Estimated Mean Plasma Glucose 105, Hemoglobin A1c 5.3 06/25/20 08:01: Blood Gas Bicarbonate Standard 38.3H, Arterial Blood pH 7.397, Arterial Blood Partial Pressure CO2 70.8*H, Arterial Blood Partial Pressure O2 60.2L, Arterial Blood Total CO2 44.8H, Arterial Blood HCO3 42.6H, Arterial Blood Base Excess 14.6H, Arterial Blood Oxygen Saturation 91.3L CBC/BMP Laboratory Tests 06/24/20 20:37 06/25/20 05:38 Microbiology Microbiology 06/24/20 Respiratory Virus Panel (PCR) (LARISA) - Final, Complete 06/24/20 Blood Culture, Received Pending 06/24/20 Blood Culture, Received Pending MIRACLE LOBO MD Jun 25, 2020 10:44
--- NOTE | 2020-06-25 15:27 | ECGEPIP ---
[facility] - ED Test Date: 2020-06-24 Pat Name: ZAINAB MCDONALD Department: Room: [place] [address] Gender: Female [employer]: maximus : [id number] Requested By: SAMANTHA Beard Order Number: [id number] Reading MD: Geri Patten Measurements Intervals [place] Rate: 97 P: WI: 0 QRS: 58 QRSD: 83 T: 0 QT: 343 QTc: 436 Interpretive Statements ATRIAL FIBRILLATION LOW QRS VOLTAGE IN PRECORDIAL LEADS POSSIBLE ANTERIOR MYOCARDIAL INFARCTION, PROBABLY OLD ABNORMAL RHYTHM ECG DECREASED RATE 02/23/20 Electronically Signed on 06-25-2020 15:26:59 EDT by Geri Patten
[2020-06-25] MEDS: NYSTATIN CREAM 15 GM TOP SCH (16:37)
[2020-06-26] VITALS (10 sets, daily range): BP systolic 119–150; BP diastolic 60–85; O2SAT 89–96
[2020-06-26] MEDS: ACETAMINOPH W/CODEINE #3 TAB UD PO PRN (00:34)
[2020-06-26] MEDS: RAMELTEON 8 MG TAB (ROZEREM) PO PRN (00:34)
[2020-06-26] MEDS: FUROSEMIDE 40MG/4ML VIAL (J1940) IV SCH ×7 (03:43→23:51)
[2020-06-26] MEDS: LEVOTHYROXINE 100MCG TABLET (0.1MG) PO SCH (05:26)
[2020-06-26] MEDS: LEVOTHYROXINE 75MCG TABLET (0.075MG) PO SCH (05:26)
[2020-06-26 05:38] LABS: BASO % 0.2 % (0.0-1.0); HEMATOCRIT 40.6 % (36.0-47.0); HEMOGLOBIN 12.1 g/dl (12.0-15.5); LYMPH # 0.8 10^3/uL (1.5-5.0); LYMPH % 12.7 % (24.0-44.0); MEAN CORPUSCULAR HEMOGLOBIN 30.6 pg (27.0-33.0); MEAN CORPUSCULAR HGB CONC 29.8 g/dl (32.0-36.5); MEAN CORPUSCULAR VOLUME 102.8 fl (80.0-96.0); MONO % 16.7 % (0.0-5.0); NEUTROPHILS # 4.3 10^3/uL (1.5-8.5); NEUTROPHILS % 69.9 % (36.0-66.0); PLATELET COUNT, AUTOMATED 232 10^3/uL (150-450); RED BLOOD COUNT 3.95 10^6/uL (4.00-5.40); WHITE BLOOD COUNT 6.2 10^3/uL (4.0-10.0)
[2020-06-26 06:01] LABS: BLOOD UREA NITROGEN 23 MG/DL (7-18); CALCIUM LEVEL 8.7 MG/DL (8.8-10.2); CARBON DIOXIDE LEVEL 40 MEQ/L (21-32); CHLORIDE LEVEL 88 MEQ/L (98-107); CREATININE FOR GFR 0.86 MG/DL (0.55-1.30); GLOMERULAR FILTRATION RATE > 60.0 (>39); GLUCOSE, FASTING 99 MG/DL (70-100); SODIUM LEVEL 132 MEQ/L (136-145)
[2020-06-26] MEDS: atenoloL 50 MG TAB PO SCH (09:31)
[2020-06-26] MEDS: PANTOPRAZOLE 40MG TAB (PROTONIX) PO SCH (09:31)
[2020-06-26] MEDS: ENOXAPARIN 40MG/0.4ML SYRINGE (J1650 PER 10MG) SC SCH (09:32)
[2020-06-26] MEDS: NYSTATIN 100,000 UNITS/GM TOPICAL PWD 15 GM TOP SCH ×2 (09:33→20:11)
[2020-06-26] MEDS: NYSTATIN CREAM 15 GM TOP SCH (09:33)
--- NOTE | 2020-06-26 13:07 | IPNPDOC ---
Subjective Date Seen The patient was seen on 06/26/20. Subjective Chief Complaint/HPI No complaints overnight. Used the table top BIPAP machine all night. Having good output. Denies any SOB at rest. Objective Physical Examination General Exam: Positive: Alert, Cooperative, No Acute Distress Eye Exam: Positive: PERRLA, Conjunctiva & lids normal, EOMI; Negative: Sclera icteric ENT Exam: Positive: Atraumatic, Mucous membr. moist/pink, Pharynx Normal Neck Exam: Positive: Supple, JVD; Negative: thyromegaly Chest Exam: Positive: Diminished (breath sounds); Negative: Rales, Rhonchi, Wheezing Heart Exam: Positive: Tachycardic, Irregular Rhythm, Normal S1, Normal S2; Negative: Gallops, Murmurs, Rubs Telemetry: Positive: Atrial fibrillation Abdomen Exam: Positive: Normal bowel sounds, Soft, Other (severely Obese with parietal edema , lymphedema of abdominal wall.) Extremity Exam: Positive: Edema; Negative: Clubbing, Cyanosis Skin Exam: Positive: Other skin issue (Bilateral lymphedema, stasis rubor and stasis dermatitis. ) Neuro Exam: Positive: Normal Speech, Normal Tone, Sensation Intact Assessment /Plan Assessment Ms. Sales is a 75 old with a history of chronic diastolic CHF, chronic O2 dependent respiratory failure, HTN, atrial fibrillation, hypothyroidism, pyoderma gangrenosum, and chronic lower extremity venous stasis, & morbid obesity presented with complaints of gradually worsening dyspnea, dizziness, lethargy, and shaking of her hands, which is likely due to combination of decompensated diastolic CHF and acute hypercapnia. Acute on Chronic Diastolic CHF does not take her lasix regularly she is incontinent and its difficult to change frequently. IV lasix continued. daily weights/restrict fluids to 2L and salt to 2g Acute Metabolic encephalopathy was confused and lethargic on admission due to hypercarbia worse than baseline. Now better Acute on Chronic hypoxic and Hypercapnic Respiratory Failure She has not been using her CPAP every day reports she uses if 4 to 5 times/ week The ABGs were reviewed they showed Respiratory acidosis with secondary metabolic alkalosis continue BIPAP and oxygen supplementation WAN/Obesity hypoventilation/restrictive lung disease continue with BIPAP The patient declined bariatric bed. A1c was 5.3 Severe Pulmonary hypertension with Corpulmonale BIPAP and Lasix. No pneumonia Possibly retrocardiac atelectasis. The only SIRS criteria she has is tachycardia due is due to Aib with rvr. CT chest could not be obtained because of her body habitus will stop levofloxacin. Hyponatremia Likely 2/2 fluid overload Chronic hypertension Atenolol and Lasix Chronic Atrial fibrillation with rvr Eliquis and atenolol Hypothyroidism Levothyroxine Debility / Unsteady Gait At her baseline she uses a walker, stand to pivot only. Has a lift chair Plan: PT consult for early mobilization Super Morbid obesity BMI of 75.8 complicates care Chronic bilateral venous stasis with stasis dermatitis Bilateral stasis rubor with lymphedema History of recurrent urinary tract infections (UTIs) with extended spectrum beta-lactamase (ESBL) Escherichia (E) coli, Pyoderma gangrenosum on immunosuppressive therapy on tracrolimus oint GERD History of perforated gastric ulcer PPI Intermittent Functional diarrhea loperamide prn H/o KIDNEY STONE REMOVED W/STENT PLACEMENT 08/10/16, URETERAL STENT REMOVAL 10/02/2016 Plan/VTE VTE Prophylaxis Ordered?: Yes [facility] Vital Signs Date Time Temp Pulse Resp B/P (MAP) Pulse Ox O2 Delivery O2 Flow Rate FiO2 06/26/20 04:00 97.9 111 20 126/60 (82) 92 NIPPV (BIPAP/CPAP) 6.0 06/25/20 04:00 35 I&O- Last 24 Hours up to 6 AM 06/26/20 07:00 Intake Total 660 ml Output Total 1200 ml Balance -540 ml Laboratory Data 24H LABS Laboratory Tests 2 06/26/20 05:19: Immature Granulocyte % (Auto) 0.5, Neutrophils (%) (Auto) 69.9H, Lymphocytes (%) (Auto) 12.7L, Monocytes (%) (Auto) 16.7H, Eosinophils (%) (Auto) 0.0, Basophils (%) (Auto) 0.2, Neutrophils # (Auto) 4.3, Lymphocytes # (Auto) 0.8L, Monocytes # (Auto) 1.0H, Eosinophils # (Auto) 0.0, Basophils # (Auto) 0.0, Nucleated Red Blood Cells % (auto) 0.0, Anion Gap 4L, Glomerular Filtration Rate > 60.0, Calcium Level 8.7L CBC/BMP Laboratory Tests 06/26/20 05:19 Microbiology Microbiology 06/24/20 Respiratory Virus Panel (PCR) ([facility]) - Final, Complete 06/24/20 Blood Culture - Preliminary, Resulted No growth after 24 hours . All specim... 06/24/20 Blood Culture - Preliminary, Resulted No growth after 24 hours . All specim... MIRACLE LOBO MD Jun 26, 2020 08:08
[2020-06-26] MEDS ORDERED: SLF 3 ML SYR IV PRN (16:45)
[2020-06-26] MEDS: SLF 3 ML SYR IV SCH (20:12)
[2020-06-27] VITALS (22 sets, daily range): BP systolic 102–142; BP diastolic 55–78; O2SAT 82–100
[2020-06-27] MEDS: ACETAMINOPH W/CODEINE #3 TAB UD PO PRN (01:24)
[2020-06-27] MEDS: RAMELTEON 8 MG TAB (ROZEREM) PO PRN (01:24)
[2020-06-27] MEDS: FUROSEMIDE 40MG/4ML VIAL (J1940) IV SCH ×3 (04:40→12:37)
[2020-06-27] MEDS: SLF 3 ML SYR IV SCH ×3 (04:41→21:08)
[2020-06-27 05:27] LABS: BASO % 0.6 % (0.0-1.0); EOS # 0.1 10^3/uL (0.0-0.5); EOS % 1.3 % (0.0-3.0); HEMATOCRIT 39.9 % (36.0-47.0); HEMOGLOBIN 11.6 g/dl (12.0-15.5); LYMPH # 0.9 10^3/uL (1.5-5.0); LYMPH % 16.4 % (24.0-44.0); MEAN CORPUSCULAR HEMOGLOBIN 30.6 pg (27.0-33.0); MEAN CORPUSCULAR HGB CONC 29.1 g/dl (32.0-36.5); MEAN CORPUSCULAR VOLUME 105.3 fl (80.0-96.0); MONO # 0.9 10^3/uL (0.0-0.8); MONO % 16.4 % (0.0-5.0); NEUTROPHILS # 3.5 10^3/uL (1.5-8.5); NEUTROPHILS % 64.9 % (36.0-66.0); PLATELET COUNT, AUTOMATED 204 10^3/uL (150-450); RED BLOOD COUNT 3.79 10^6/uL (4.00-5.40); WHITE BLOOD COUNT 5.4 10^3/uL (4.0-10.0)
[2020-06-27 06:11] LABS: BLOOD UREA NITROGEN 26 MG/DL (7-18); CALCIUM LEVEL 8.7 MG/DL (8.8-10.2); CARBON DIOXIDE LEVEL 48 MEQ/L (21-32); CHLORIDE LEVEL 85 MEQ/L (98-107); GLOMERULAR FILTRATION RATE > 60.0 (>39); GLUCOSE, FASTING 95 MG/DL (70-100); POTASSIUM SERUM 3.3 MEQ/L (3.5-5.1); SODIUM LEVEL 133 MEQ/L (136-145)
[2020-06-27] MEDS: LEVOTHYROXINE 100MCG TABLET (0.1MG) PO SCH (06:48)
[2020-06-27] MEDS: LEVOTHYROXINE 75MCG TABLET (0.075MG) PO SCH (06:48)
[2020-06-27] MEDS: NYSTATIN CREAM 15 GM TOP SCH ×2 (09:00→09:42)
[2020-06-27] MEDS: ENOXAPARIN 40MG/0.4ML SYRINGE (J1650 PER 10MG) SC SCH (09:38)
[2020-06-27] MEDS: PANTOPRAZOLE 40MG TAB (PROTONIX) PO SCH (09:40)
[2020-06-27] MEDS: atenoloL 50 MG TAB PO SCH (09:40)
[2020-06-27] MEDS: NYSTATIN 100,000 UNITS/GM TOPICAL PWD 15 GM TOP SCH ×2 (09:42→21:07)
--- NOTE | 2020-06-27 11:31 | IPNPDOC ---
Text Note Date of Service The patient was seen on 06/27/20. NOTE Subjective: Pt notes dyspnea is slightly improved. Uses 1-2L O2 outpt. Denies CP/palpitations. No N/V/abd pain. Objective: Vitals: (see below) General: No acute distress, laying comfortably in bed. HEENT: Moist mucous membranes. Neck: No JVD or lymphadenopathy Cardiac: RRR, No murmurs Pulm: Diminished at the bases b/l. No wheezing, rhonchi Abd: NT/ND + BS Ext: + edema BLE with chronic venous stasis and skin changes. No cyanosis. distal pulses intact. Labs (see below) Acute on chronic Hypoxic resp failure - likely 2/2 chf exac. - CTA chest to r/o PE as still has increased O2 req despite diuresis - check echo Acute on Chronic Diastolic CHF does not take her lasix regularly she is incontinent and its difficult to change frequently. IV lasix continued. daily weights/restrict fluids to 2L and salt to 2g Acute Metabolic encephalopathy was confused and lethargic on admission due to hypercarbia worse than baseline. Now better Acute on Chronic hypoxic and Hypercapnic Respiratory Failure She has not been using her CPAP every day reports she uses if 4 to 5 times/ week The ABGs were reviewed they showed Respiratory acidosis with secondary metabolic alkalosis continue BIPAP and oxygen supplementation WAN/Obesity hypoventilation/restrictive lung disease continue with BIPAP The patient declined bariatric bed. A1c was 5.3 Severe Pulmonary hypertension with Corpulmonale BIPAP and Lasix. No pneumonia Possibly retrocardiac atelectasis. The only SIRS criteria she has is tachycardia due is due to Aib with rvr. CT chest could not be obtained because of her body habitus will stop levofloxacin. Hyponatremia Likely 2/2 fluid overload Chronic hypertension Atenolol and Lasix Chronic Atrial fibrillation with rvr atenolol. ? if pt takes eliquis at home Hypothyroidism Levothyroxine Debility / Unsteady Gait At her baseline she uses a walker, stand to pivot only. Has a lift chair Plan: PT consult for early mobilization Super Morbid obesity BMI of 75.8 complicates care Chronic bilateral venous stasis with stasis dermatitis Bilateral stasis rubor with lymphedema History of recurrent urinary tract infections (UTIs) with extended spectrum beta-lactamase (ESBL) Escherichia (E) coli, Pyoderma gangrenosum on immunosuppressive therapy on tracrolimus oint GERD History of perforated gastric ulcer PPI Intermittent Functional diarrhea loperamide prn H/o KIDNEY STONE REMOVED W/STENT PLACEMENT 08/10/16, URETERAL STENT REMOVAL 10/02/2016 Likely to need rehab on d/c. VS,Fishbone, I+O VS, Fishbone, I+O Laboratory Tests 06/27/20 04:55 Vital Signs Date Time Temp Pulse Resp B/P (MAP) Pulse Ox O2 Delivery O2 Flow Rate FiO2 06/27/20 09:40 98 120/55 06/27/20 08:00 97.0 17 95 Nasal Cannula 6.0 06/25/20 04:00 35 I&O- Last 24 Hours up to 6 AM 06/27/20 06:00 Intake Total 1370 ml Output Total 3550 ml Balance -2180 ml RYAN CRAWFORD MD Jun 27, 2020 11:31
[2020-06-27] MEDS ORDERED: ISOVUE-370 76% 100ML VIAL As Ordered ONE (11:56)
--- NOTE | 2020-06-27 12:58 | REPVR ---
PROCEDURE INFORMATION: Exam: CT Angiography Chest With Contrast Exam date and time: 06/27/2020 12:23 PM Age: 75 years old Clinical indication: Chest pain; Additional info: SOB, hypoxia, R/O pe TECHNIQUE: Imaging protocol: Computed tomographic angiography of the chest with intravenous contrast. 3D rendering (Not supervised by radiologist): MIP and/or 3D reconstructed images were created by the technologist. Radiation optimization: All CT scans at this facility use at least one of these dose optimization techniques: automated exposure control; mA and/or kV adjustment per patient size (includes targeted exams where dose is matched to clinical indication); or iterative reconstruction. Contrast material: ISO 370; Contrast volume: 100 ml; Contrast route: INTRAVENOUS (IV); COMPARISON: CT Chest without contrast 06/16/2018 11:27 PM FINDINGS: Limitations: Mild motion. Streak artifact related to body habitus. Pulmonary arteries: No definite pulmonary embolus is identified. Aorta: The thoracic aorta is nonaneurysmal. Lungs: The right lower lobe is entirely collapsed. There is also dependent atelectasis involving the right upper and middle and left upper and lower lobes. There could be mild airspace consolidation in the lingula. Pleural space: There are moderate right and very small left pleural effusions. No pneumothorax is identified. Heart: Unremarkable. No cardiomegaly. No pericardial effusion. Lymph nodes: Unremarkable. No enlarged lymph nodes. Bones/joints: Degenerative changes again involve the spine and shoulders. Hardware is again partially included in the right humerus. Soft tissues: Unremarkable. IMPRESSION: 1. Exam limited as above. 2. No definite pulmonary embolus identified. 3. Moderate right and very small left pleural effusions. 4. Collapse of the right lower lobe, potentially related to the effusion, but recommend follow-up to exclude obstructing pathology. 5. Dependent atelectasis elsewhere with potential mild airspace consolidation in the lingula. Electronically signed by: Jamil Garcia On 06/27/2020 12:58:02 PM
[2020-06-27] MEDS: ACETAMINOPHEN TAB 650MG DOSE (2X325MG) PO PRN (13:07)
[2020-06-27] MEDS: ALBUTEROL 90 MCG/ACT 8GM HFA INHALER INH PRN (14:03)
[2020-06-27 15:23] LABS: ABG BASE EXCESS 17.1 (-2.0-2.0); ABG HCO3 46.2 MEQ/L (22.0-26.0); ABG O2 SATURATION 91.3 % (95.0-99.0); ABG TOTAL CO2 48.7 MEQ/L (23.0-31.0)
[2020-06-27 15:26] LABS: ABG PARTIAL PRESSURE CO2 81.7 mmHg (35.0-45.0)
[2020-06-27] MEDS: DIMETHICONE 2% OINTMENT(VANICREAM) 70GM TUBE TOP SCH ×2 (16:17→21:07)
[2020-06-27] MEDS: MUPIROCIN 2% OINT 22 GM TUBE TOP SCH (21:08)
[2020-06-28] VITALS (22 sets, daily range): BP systolic 92–126; BP diastolic 56–70; O2SAT 82–99
[2020-06-28] MEDS ORDERED: FUROSEMIDE 40MG/4ML VIAL (J1940) IV SCH
[2020-06-28] MEDS: SLF 3 ML SYR IV SCH ×3 (05:08→20:19)
[2020-06-28] MEDS: LEVOTHYROXINE 100MCG TABLET (0.1MG) PO SCH (05:08)
[2020-06-28] MEDS: LEVOTHYROXINE 75MCG TABLET (0.075MG) PO SCH (05:08)
[2020-06-28 05:23] LABS: BASO % 0.4 % (0.0-1.0); EOS # 0.2 10^3/uL (0.0-0.5); EOS % 3.2 % (0.0-3.0); HEMATOCRIT 39.1 % (36.0-47.0); HEMOGLOBIN 11.1 g/dl (12.0-15.5); LYMPH # 0.7 10^3/uL (1.5-5.0); LYMPH % 14.5 % (24.0-44.0); MEAN CORPUSCULAR HEMOGLOBIN 29.9 pg (27.0-33.0); MEAN CORPUSCULAR HGB CONC 28.4 g/dl (32.0-36.5); MEAN CORPUSCULAR VOLUME 105.4 fl (80.0-96.0); MONO # 0.7 10^3/uL (0.0-0.8); MONO % 15.6 % (0.0-5.0); NEUTROPHILS # 3.1 10^3/uL (1.5-8.5); NEUTROPHILS % 66.1 % (36.0-66.0); PLATELET COUNT, AUTOMATED 182 10^3/uL (150-450); RED BLOOD COUNT 3.71 10^6/uL (4.00-5.40); WHITE BLOOD COUNT 4.8 10^3/uL (4.0-10.0)
[2020-06-28 06:01] LABS: BLOOD UREA NITROGEN 21 MG/DL (7-18); CALCIUM LEVEL 8.3 MG/DL (8.8-10.2); CARBON DIOXIDE LEVEL 52 MEQ/L (21-32); CHLORIDE LEVEL 85 MEQ/L (98-107); CREATININE FOR GFR 0.72 MG/DL (0.55-1.30); GLOMERULAR FILTRATION RATE > 60.0 (>39); GLUCOSE, FASTING 94 MG/DL (70-100); POTASSIUM SERUM 2.9 MEQ/L (3.5-5.1); SODIUM LEVEL 136 MEQ/L (136-145)
[2020-06-28] MEDS ORDERED: POTASSIUM CHLORIDE 10 MEQ SR TABLET PO ONE ×2 (06:15→11:00)
[2020-06-28] MEDS: KCL 10MEQ/100ML SWI (KRUN) 10 MEQ in IV 1 EA IV SCH ×3 (06:21→09:19)
[2020-06-28 08:03] LABS: MAGNESIUM LEVEL 1.8 MG/DL (1.8-2.4)
[2020-06-28 08:15] LABS: ABG BASE EXCESS 22.5 (-2.0-2.0); ABG HCO3 54.9 MEQ/L (22.0-26.0); ABG O2 SATURATION 94.5 % (95.0-99.0); ABG PARTIAL PRESSURE O2 77.6 mmHg (75.0-100.0); ABG STANDARD HCO3 47.2 MEQ/L (22.0-26.0); ABG TOTAL CO2 58.4 MEQ/L (23.0-31.0); ABG pH (ARTERIAL) 7.295 UNITS (7.350-7.450)
[2020-06-28 08:21] LABS: ABG PARTIAL PRESSURE CO2 115.4 mmHg (35.0-45.0)
[2020-06-28] MEDS: ENOXAPARIN 40MG/0.4ML SYRINGE (J1650 PER 10MG) SC SCH (08:39)
[2020-06-28] MEDS: PANTOPRAZOLE 40MG TAB (PROTONIX) PO SCH (08:39)
[2020-06-28] MEDS: atenoloL 50 MG TAB PO SCH (08:39)
[2020-06-28] MEDS: DIMETHICONE 2% OINTMENT(VANICREAM) 70GM TUBE TOP SCH ×3 (08:40→20:19)
[2020-06-28] MEDS: NYSTATIN CREAM 15 GM TOP SCH (08:40)
[2020-06-28] MEDS: NYSTATIN 100,000 UNITS/GM TOPICAL PWD 15 GM TOP SCH ×2 (08:41→20:18)
[2020-06-28] MEDS ORDERED: KCL 10MEQ/100ML SWI (KRUN) 10 MEQ in IV 1 EA IV SCH (10:00)
[2020-06-28] MEDS: ACETAMINOPHEN TAB 650MG DOSE (2X325MG) PO PRN (10:55)
--- NOTE | 2020-06-28 14:12 | IPNPDOC ---
Text Note Date of Service The patient was seen on 06/28/20. NOTE Subjective: No acute changes overnight. Dyspnea unchanged. PaCO2 elevated; Me ntating well. appreciate Dr. Fitzgerald's input in adjusting bipap settings. Denies CP/palpitations. No N/V/abd pain. Objective: Vitals: (see below) General: No acute distress, laying comfortably in bed. HEENT: Moist mucous membranes. Neck: No JVD or lymphadenopathy Cardiac: RRR, No murmurs Pulm: Diminished at the bases b/l. No wheezing, rhonchi Abd: NT/ND + BS Ext: + edema BLE with chronic venous stasis and skin changes. No cyanosis. distal pulses intact. Labs (see below) Acute on Chronic hypoxic and Hypercapnic Respiratory Failure She has not been using her CPAP every day reports she uses if 4 to 5 times/ week The ABGs were reviewed they showed Respiratory acidosis with secondary metabolic alkalosis continue BIPAP and oxygen supplementation - Worsening CO2 likely 2/2 retention and diuresis with elevated BE. D/c lasix; - BIPAP adjusted by Dr. Fitzgerald. Acute on chronic Hypoxic resp failure - likely 2/2 chf exac. - CTA chest to r/o PE as still has increased O2 req despite diuresis - check echo Acute on Chronic Diastolic CHF - improved. does not take her lasix regularly she is incontinent and its difficult to change frequently. D/c IV lasix daily weights/restrict fluids to 2L and salt to 2g Acute Metabolic encephalopathy was confused and lethargic on admission due to hypercarbia worse than baseline. Now better WAN/Obesity hypoventilation/restrictive lung disease continue with BIPAP The patient declined bariatric bed. A1c was 5.3 Severe Pulmonary hypertension with Corpulmonale BIPAP and Lasix. No pneumonia Possibly retrocardiac atelectasis. The only SIRS criteria she has is tachycardia due is due to Aib with rvr. CT chest could not be obtained because of her body habitus will stop levofloxacin. Hyponatremia Likely 2/2 fluid overload Chronic hypertension Atenolol and Lasix Chronic Atrial fibrillation with rvr atenolol. ? if pt takes eliquis at home Hypothyroidism Levothyroxine Debility / Unsteady Gait At her baseline she uses a walker, stand to pivot only. Has a lift chair Plan: PT consult for early mobilization Super Morbid obesity BMI of 75.8 complicates care Chronic bilateral venous stasis with stasis dermatitis Bilateral stasis rubor with lymphedema History of recurrent urinary tract infections (UTIs) with extended spectrum be ta-lactamase (ESBL) Escherichia (E) coli, Pyoderma gangrenosum on immunosuppressive therapy on tracrolimus oint GERD History of perforated gastric ulcer PPI Intermittent Functional diarrhea loperamide prn H/o KIDNEY STONE REMOVED W/STENT PLACEMENT 08/10/16, URETERAL STENT REMOVAL 10/02/2016 Likely to need rehab on d/c. VS,Fishbone, I+O VS, Fishbone, I+O Laboratory Tests 06/28/20 04:59 Vital Signs Date Time Temp Pulse Resp B/P (MAP) Pulse Ox O2 Delivery O2 Flow Rate FiO2 06/28/20 12:00 95 BIPAP/CPAP 6.0 06/28/20 12:00 97.2 116 20 113/58 (76) 06/25/20 04:00 35 I&O- Last 24 Hours up to 6 AM 06/28/20 06:00 Intake Total 1070 ml Output Total 3750 ml Balance -2680 ml RYAN CRAWFORD MD Jun 28, 2020 14:12
[2020-06-28 16:04] LABS: BLOOD UREA NITROGEN 20 MG/DL (7-18); CALCIUM LEVEL 8.5 MG/DL (8.8-10.2); CARBON DIOXIDE LEVEL 52 MEQ/L (21-32); CHLORIDE LEVEL 87 MEQ/L (98-107); GLOMERULAR FILTRATION RATE > 60.0 (>39); GLUCOSE, FASTING 111 MG/DL (70-100); POTASSIUM SERUM 3.8 MEQ/L (3.5-5.1); SODIUM LEVEL 138 MEQ/L (136-145)
[2020-06-28] MEDS: ACETAMINOPH W/CODEINE #3 TAB UD PO PRN (21:19)
[2020-06-29] VITALS (23 sets, daily range): BP systolic 102–143; BP diastolic 56–92; O2SAT 82–96
[2020-06-29] MEDS: LEVOTHYROXINE 75MCG TABLET (0.075MG) PO SCH (05:04)
[2020-06-29] MEDS: SLF 3 ML SYR IV SCH ×3 (05:04→22:11)
[2020-06-29] MEDS: LEVOTHYROXINE 100MCG TABLET (0.1MG) PO SCH (05:04)
[2020-06-29 05:28] LABS: BASO # 0.1 10^3/uL (0.0-0.2); BASO % 1.1 % (0.0-1.0); EOS # 0.2 10^3/uL (0.0-0.5); EOS % 3.8 % (0.0-3.0); HEMATOCRIT 39.1 % (36.0-47.0); HEMOGLOBIN 11.2 g/dl (12.0-15.5); LYMPH # 0.7 10^3/uL (1.5-5.0); LYMPH % 15.5 % (24.0-44.0); MEAN CORPUSCULAR HEMOGLOBIN 30.1 pg (27.0-33.0); MEAN CORPUSCULAR HGB CONC 28.6 g/dl (32.0-36.5); MEAN CORPUSCULAR VOLUME 105.1 fl (80.0-96.0); MONO # 0.8 10^3/uL (0.0-0.8); MONO % 16.1 % (0.0-5.0); NEUTROPHILS % 63.3 % (36.0-66.0); PLATELET COUNT, AUTOMATED 164 10^3/uL (150-450); RED BLOOD COUNT 3.72 10^6/uL (4.00-5.40); WHITE BLOOD COUNT 4.7 10^3/uL (4.0-10.0)
[2020-06-29 06:35] LABS: BLOOD UREA NITROGEN 18 MG/DL (7-18); CALCIUM LEVEL 8.5 MG/DL (8.8-10.2); CARBON DIOXIDE LEVEL 53 MEQ/L (21-32); CHLORIDE LEVEL 88 MEQ/L (98-107); CREATININE FOR GFR 0.62 MG/DL (0.55-1.30); GLOMERULAR FILTRATION RATE > 60.0 (>39); GLUCOSE, FASTING 84 MG/DL (70-100); POTASSIUM SERUM 3.8 MEQ/L (3.5-5.1); SODIUM LEVEL 139 MEQ/L (136-145)
[2020-06-29 08:18] LABS: ABG BASE EXCESS 20.9 (-2.0-2.0); ABG HCO3 51.9 MEQ/L (22.0-26.0); ABG O2 SATURATION 94.9 % (95.0-99.0); ABG PARTIAL PRESSURE O2 75.7 mmHg (75.0-100.0); ABG STANDARD HCO3 45.3 MEQ/L (22.0-26.0); ABG pH (ARTERIAL) 7.327 UNITS (7.350-7.450)
[2020-06-29 08:19] LABS: ABG PARTIAL PRESSURE CO2 101.4 mmHg (35.0-45.0)
--- NOTE | 2020-06-29 08:58 | IPNPDOC ---
Text Note Date of Service The patient was seen on 06/29/20. NOTE Subjective: No acute changes overnight. Pt had an epidose of delirium overnight, was unsure where her was. Denies CP/palpitations. Objective: Vitals: (see below) General: No acute distress, laying comfortably in bed. HEENT: Moist mucous membranes. Neck: No JVD or lymphadenopathy Cardiac: RRR, No murmurs Pulm: Diminished at the bases b/l. No wheezing, rhonchi Abd: NT/ND + BS Ext: + edema BLE with chronic venous stasis and skin changes. No cyanosis. distal pulses intact. Labs (see below) Acute on Chronic hypoxic and Hypercapnic Respiratory Failure She has not been using her CPAP every day reports she uses if 4 to 5 times/ week The ABGs were reviewed they showed Respiratory acidosis with secondary metabolic alkalosis continue BIPAP and oxygen supplementation - Worsening CO2 likely 2/2 retention and diuresis with elevated BE. D/c lasix; - BIPAP adjusted by Dr. Fitzgerald. - PaCO2 down to 101 today; appreciate Dr. Fitzgerald's input and adjustment of bipap Acute on chronic Hypoxic resp failure - likely 2/2 chf exac. - CTA chest to r/o PE as still has increased O2 req despite diuresis - echo pend Acute on Chronic Diastolic CHF - improved. does not take her lasix regularly she is incontinent and its difficult to change frequently. D/c IV lasix daily weights/restrict fluids to 2L and salt to 2g Acute Metabolic encephalopathy was confused and lethargic on admission due to hypercarbia worse than baseline. Now better - episodic delirium 2/2 hypercarbia WAN/Obesity hypoventilation/restrictive lung disease continue with BIPAP The patient declined bariatric bed. A1c was 5.3 Severe Pulmonary hypertension with Corpulmonale BIPAP and Lasix. No pneumonia Possibly retrocardiac atelectasis. The only SIRS criteria she has is tachycardia due is due to Aib with rvr. CT chest could not be obtained because of her body habitus will stop levofloxacin. Hyponatremia Likely 2/2 fluid overload Chronic hypertension Atenolol and Lasix Chronic Atrial fibrillation with rvr atenolol. ? if pt takes eliquis at home Hypothyroidism Levothyroxine Debility / Unsteady Gait At her baseline she uses a walker, stand to pivot only. Has a lift chair Plan: PT consult for early mobilization Super Morbid obesity BMI of 75.8 complicates care Chronic bilateral venous stasis with stasis dermatitis Bilateral stasis rubor with lymphedema History of recurrent urinary tract infections (UTIs) with extended spectrum beta-lactamase (ESBL) Escherichia (E) coli, Pyoderma gangrenosum on immunosuppressive therapy on tracrolimus oint GERD History of perforated gastric ulcer PPI Intermittent Functional diarrhea loperamide prn H/o KIDNEY STONE REMOVED W/STENT PLACEMENT 08/10/16, URETERAL STENT REMOVAL 10/02/2016 Overall prognosis guarded. Likely to need rehab on d/c. VS,Fishbone, I+O VS, Fishbone, I+O Laboratory Tests 06/28/20 15:12 06/29/20 05:08 Vital Signs Date Time Temp Pulse Resp B/P (MAP) Pulse Ox O2 Delivery O2 Flow Rate FiO2 06/29/20 08:00 97.2 103 18 124/65 (84) 98 Nasal Cannula 8.0 06/25/20 04:00 35 I&O- Last 24 Hours up to 6 AM 06/29/20 06:00 Intake Total 480 ml Output Total 1150 ml Balance -670 ml RYAN CRAWFORD MD Jun 29, 2020 08:57
[2020-06-29] MEDS: ENOXAPARIN 40MG/0.4ML SYRINGE (J1650 PER 10MG) SC SCH (09:24)
[2020-06-29] MEDS: PANTOPRAZOLE 40MG TAB (PROTONIX) PO SCH (09:24)
[2020-06-29] MEDS: atenoloL 50 MG TAB PO SCH (09:25)
[2020-06-29] MEDS: NYSTATIN 100,000 UNITS/GM TOPICAL PWD 15 GM TOP SCH ×2 (09:26→20:09)
[2020-06-29] MEDS: NYSTATIN CREAM 15 GM TOP SCH (09:27)
[2020-06-29] MEDS: DIMETHICONE 2% OINTMENT(VANICREAM) 70GM TUBE TOP SCH ×3 (09:27→20:11)
[2020-06-29] MEDS: MUPIROCIN 2% OINT 22 GM TUBE TOP SCH (20:08)
[2020-06-30] VITALS (13 sets, daily range): BP systolic 100–123; BP diastolic 56–76; O2SAT 87–96
[2020-06-30] MEDS: ACETAMINOPHEN TAB 650MG DOSE (2X325MG) PO PRN (01:57)
[2020-06-30] MEDS: SLF 3 ML SYR IV SCH ×3 (05:25→20:01)
[2020-06-30] MEDS: LEVOTHYROXINE 100MCG TABLET (0.1MG) PO SCH (05:25)
[2020-06-30] MEDS: LEVOTHYROXINE 75MCG TABLET (0.075MG) PO SCH (05:25)
[2020-06-30 05:38] LABS: BASO % 0.7 % (0.0-1.0); EOS # 0.2 10^3/uL (0.0-0.5); HEMATOCRIT 39.2 % (36.0-47.0); HEMOGLOBIN 11.4 g/dl (12.0-15.5); LYMPH # 0.9 10^3/uL (1.5-5.0); LYMPH % 15.6 % (24.0-44.0); MEAN CORPUSCULAR HEMOGLOBIN 30.3 pg (27.0-33.0); MEAN CORPUSCULAR HGB CONC 29.1 g/dl (32.0-36.5); MEAN CORPUSCULAR VOLUME 104.3 fl (80.0-96.0); MONO # 0.8 10^3/uL (0.0-0.8); MONO % 13.7 % (0.0-5.0); NEUTROPHILS % 66.7 % (36.0-66.0); PLATELET COUNT, AUTOMATED 163 10^3/uL (150-450); RED BLOOD COUNT 3.76 10^6/uL (4.00-5.40)
[2020-06-30 06:09] LABS: BLOOD UREA NITROGEN 16 MG/DL (7-18); CARBON DIOXIDE LEVEL 45 MEQ/L (21-32); CHLORIDE LEVEL 88 MEQ/L (98-107); CREATININE FOR GFR 0.56 MG/DL (0.55-1.30); GLOMERULAR FILTRATION RATE > 60.0 (>39); GLUCOSE, FASTING 87 MG/DL (70-100); POTASSIUM SERUM 4.1 MEQ/L (3.5-5.1); SODIUM LEVEL 135 MEQ/L (136-145)
[2020-06-30] MEDS: PANTOPRAZOLE 40MG TAB (PROTONIX) PO SCH (08:12)
[2020-06-30] MEDS: NYSTATIN CREAM 15 GM TOP SCH (08:13)
[2020-06-30] MEDS: DIMETHICONE 2% OINTMENT(VANICREAM) 70GM TUBE TOP SCH ×3 (08:13→19:57)
[2020-06-30] MEDS: ENOXAPARIN 40MG/0.4ML SYRINGE (J1650 PER 10MG) SC SCH (08:13)
[2020-06-30] MEDS: NYSTATIN 100,000 UNITS/GM TOPICAL PWD 15 GM TOP SCH ×2 (08:14→20:01)
[2020-06-30] MEDS: atenoloL 50 MG TAB PO SCH (08:15)
[2020-06-30 08:41] LABS: ABG BASE EXCESS 21.3 (-2.0-2.0); ABG HCO3 51.3 MEQ/L (22.0-26.0); ABG O2 SATURATION 95.2 % (95.0-99.0); ABG PARTIAL PRESSURE CO2 90.8 mmHg (35.0-45.0); ABG PARTIAL PRESSURE O2 76.2 mmHg (75.0-100.0); ABG STANDARD HCO3 45.7 MEQ/L (22.0-26.0); ABG TOTAL CO2 54.1 MEQ/L (23.0-31.0)
[2020-06-30] MEDS ORDERED: atenoloL 25 MG TAB PO ONE (08:45)
--- NOTE | 2020-06-30 11:13 | IPNPDOC ---
Text Note Date of Service The patient was seen on 06/30/20. NOTE Subjective: No acute changes overnight. Denies CP/palpitations. Had episode of AF RVR. Objective: Vitals: (see below) General: No acute distress, laying comfortably in bed. HEENT: Moist mucous membranes. Neck: No JVD or lymphadenopathy Cardiac: irregularly irregular, No murmurs Pulm: Diminished at the bases b/l. No wheezing, rhonchi Abd: NT/ND + BS Ext: + edema BLE with chronic venous stasis and skin changes. No cyanosis. distal pulses intact. Labs (see below) Acute on Chronic hypoxic and Hypercapnic Respiratory Failure She has not been using her CPAP every day reports she uses if 4 to 5 times/ week The ABGs were reviewed they showed Respiratory acidosis with secondary metabolic alkalosis continue BIPAP and oxygen supplementation - Worsening CO2 likely 2/2 retention and diuresis with elevated BE. D/c lasix; - BIPAP adjusted by Dr. Fitzgerald. 06/29 -> CO2 improved to 90 today. Acute on chronic Hypoxic resp failure - likely 2/2 chf exac. - CTA chest to r/o PE as still has increased O2 req despite diuresis - echo pend Acute on Chronic Diastolic CHF - improved. does not take her lasix regularly she is incontinent and its difficult to change frequently. D/c IV lasix daily weights/restrict fluids to 2L and salt to 2g Acute Metabolic encephalopathy was confused and lethargic on admission due to hypercarbia worse than baseline. Now better - episodic delirium 2/2 hypercarbia WAN/Obesity hypoventilation/restrictive lung disease continue with BIPAP The patient declined bariatric bed. A1c was 5.3 Severe Pulmonary hypertension with Corpulmonale BIPAP and Lasix. No pneumonia Possibly retrocardiac atelectasis. The only SIRS criteria she has is tachycardia due is due to Aib with rvr. CT chest could not be obtained because of her body habitus will stop levofloxacin. Hyponatremia Likely 2/2 fluid overload Chronic hypertension Atenolol and Lasix Chronic Atrial fibrillation with rvr atenolol.--> increase to 75mg po daily - Refused anticoagulation given h/o GI Bleed - On ASA Hypothyroidism Levothyroxine Debility / Unsteady Gait At her baseline she uses a walker, stand to pivot only. Has a lift chair Plan: PT consult for early mobilization Super Morbid obesity BMI of 75.8 complicates care Chronic bilateral venous stasis with stasis dermatitis Bilateral stasis rubor with lymphedema History of recurrent urinary tract infections (UTIs) with extended spectrum beta-lactamase (ESBL) Escherichia (E) coli, Pyoderma gangrenosum on immunosuppressive therapy on tracrolimus oint GERD History of perforated gastric ulcer PPI Intermittent Functional diarrhea loperamide prn H/o KIDNEY STONE REMOVED W/STENT PLACEMENT 08/10/16, URETERAL STENT REMOVAL 10/02/2016 Overall prognosis guarded. Likely to need rehab on d/c. VS,Fishbone, I+O VS, Fishbone, I+O Laboratory Tests 06/30/20 05:22 Vital Signs Date Time Temp Pulse Resp B/P (MAP) Pulse Ox O2 Delivery O2 Flow Rate FiO2 06/30/20 09:24 110 06/30/20 09:00 4.0 06/30/20 08:15 109/57 06/30/20 08:00 98.0 18 95 High Flow Cannula 06/25/20 04:00 35 I&O- Last 24 Hours up to 6 AM 06/30/20 05:59 Intake Total 486 ml Output Total 725 ml Balance -239 ml RYAN CRAWFORD MD Jun 30, 2020 11:13
--- NOTE | 2020-06-30 13:19 | IPNPDOC ---
Date Seen The patient was seen on 06/30/20. Progress Note SUBJECTIVE: Patient is a 75-year-old female with a history of CHF, hypothyroidism, morbid obesity, hypertension, venous stasis, and WAN without CPAP compliance. Patient was seen on on hospital day 7. Patient is more cooperative and conversational than yesterday. There were no overnight events. Patient has remained noncompliant with the BiPAP machine. Patient has not been using the machine as prescribed, but has been using it periodically. OBJECTIVE PHYSICAL EXAMINATION: VITAL SIGNS: Please see below. GENERAL: Pt is in no acute distress. She is cooperative and conversational. Pt is morbidly obese with BMI of 75.8. CARDIOVASCULAR: irregularly irregular rhythm, no murmurs, rubs, or gallops. RESPIRATORY: decreased breath sounds, clear to auscultation. ABDOMINAL: BS present, soft, nontender, distention due to morbid obesity. No pain on palpation. EXTREMITIES: hyperpigmentation due to chronic venous stasis in bilateral lower extremities. Lower extremity edema, R>L, R:+2, L:+1. PSYCHOLOGICAL: alert and cooperative. LABORATORY DATA, IMAGING STUDIES, MICROBIOLOGY: Please see below. Echocardiogram: pending. DVT prophylaxis ordered: Lovenox 40mg. ASSESSMENT AND PLAN: This is a 75-year-old female with a history of CHF, hypothyroidism, morbid obesity, hypertension, venous stasis, and WAN without CPAP compliance presenting on hospital day 7. PROBLEMS: 1. Neurologic: Acute metabolic encephalopathy has resolved. Pt is now conversational and is aware of surroundings. Pt is able to coordinate calls from and able to discuss plan of care options and possible discharge to the [facility]. Pt's code status is DNR/DNI. 2. Cardiology: Pt has a history of A-fibrillation with RVR. Continue Lovenox. Investigate what her home medications for managing atrial fibrillation are. The pt also has a history of HTN. Continue atenolol 50mg daily. Pt has a history of diastolic CHF, and was admitted with fluid overload. Lasix has been appropriately discontinued. Maintain fluid and salt restriction as mentioned by Dr. Benavides to 2L and 2 g, respectively. 3. Pulmonary: Pt has a history of obesity hypoventilation syndrome and WAN and was admitted for acute on chronic hypoxic/hypercarbic respiratory failure. Continue BiPaP on settings of expiratory pressure: 14 mmHg and inspiratory pressure: 17 mmHg. Pt's ABG pH has stabilized to within normal limits. Continue to encourage BiPaP. Pneumonia has been ruled out. Continue to monitor pt's ABG. 4. GI: Continue current bowel regimen with pantoprazole. Continue to monitor bowel habits. 5. Renal/Endocrine: Pt has a history of hypothyroidism. Continue Levothyroxine. Continue to monitor BUN, Creatinine. 6. Hematology: Continue Lovenox for DVT prophylaxis. 7. MSK: Pt needs assistance, disability due to morbid obesity, BMI: 75.8. Likely to discharge once stabilized to [facility]. 8. Integumentary: Continue Nystatin use, pt is morbidly obese and this medication is for application in intertriginous areas. Pt has tacrolimus ointment from home medications for pyoderma gangrenosum. Dr. Benavides has added mupirocin for her legs. Please continue Dr. Benavides's protocol. DISPOSITION: Keep patient under observation and follow Dr. Benavides's medical decision. Dr. Pinzon; I was present for the cortes elements of the examination and agree with the above documentation. The patient is clearly in volume excess however much of her fluid is in the form of edema rather than intervascular. Continued diuresis will be needed but must be tempered by the accumulating bicarb. Her obesity-hypoventilation syndrome complicates her underlying WAN and she will require at least 14cm of expiratory pressure (CPAP) on her machine. At current an inspiratory pressure of 17 is accomplishing adequate minute ventilation to allow her to compensate for the diuretic amplified metabolic acidosis so as to achieve a pH within the normal range. This may change if and when she achieves euvolemia. Compliance with BiPap will help, if she is willing. If however she is non compliant the course of deterioration is inevitable. VS, I&O, 24H, Fishbone Vital Signs/I&O Vital Signs Date Time Temp Pulse Resp B/P (MAP) Pulse Ox O2 Delivery O2 Flow Rate FiO2 06/30/20 09:24 110 06/30/20 09:00 4.0 06/30/20 08:15 109/57 06/30/20 08:00 98.0 18 95 High Flow Cannula 06/25/20 04:00 35 I&O- Last 24 Hours up to 6 AM 06/30/20 06:00 Intake Total 486 ml Output Total 650 ml Balance -164 ml Laboratory Data 24H LABS Laboratory Tests 2 06/30/20 05:22: Immature Granulocyte % (Auto) 0.3, Neutrophils (%) (Auto) 66.7H, Lymphocytes (%) (Auto) 15.6L, Monocytes (%) (Auto) 13.7H, Eosinophils (%) (Auto) 3.0, Basophils (%) (Auto) 0.7, Neutrophils # (Auto) 4.0, Lymphocytes # (Auto) 0.9L, Monocytes # (Auto) 0.8, Eosinophils # (Auto) 0.2, Basophils # (Auto) 0.0, Nucleated Red Blood Cells % (auto) 0.0, Anion Gap 2L, Glomerular Filtration Rate > 60.0, Calci um Level 9.0 06/30/20 08:27: Blood Gas Bicarbonate Standard 45.7H, Arterial Blood pH 7.370, Arterial Blood Partial Pressure CO2 90.8*H, Arterial Blood Partial Pressure O2 76.2, Arterial Blood Total CO2 54.1H, Arterial Blood HCO3 51.3H, Arterial Blood Base Excess 21.3H, Arterial Blood Oxygen Saturation 95.2 CBC/BMP Laboratory Tests 06/30/20 05:22 Microbiology Microbiology 06/24/20 Respiratory Virus Panel (PCR) (LARISA) - Final, Complete 06/24/20 Blood Culture - Final, Complete NO GROWTH AFTER 5 DAYS 06/24/20 Blood Culture - Final, Complete NO GROWTH AFTER 5 DAYS GME ATTESTATION My faculty preceptor for this patient encounter was physically present during the encounter and was fully available. All aspects of the patient interview, examination, medical decision making process, and medical care plan development were reviewed and approved by the faculty preceptor. The faculty preceptor is aware and concurs with the plan as stated in the body of this note and will attest to such by his/her cosignature. Miles Langford DO Jun 30, 2020 11:56 Evangelist Pinzon DO, [facility] Jul 01, 2020 09:35
--- NOTE | 2020-06-30 14:31 | ECHO ---
DATE OF PROCEDURE: 06/27/2020 Gender: F Height: 158 cm Weight: 184 kg REFERRING PHYSICIAN: Dr. Víctor Benavides INDICATION: Congestive heart failure MEASUREMENTS: IVS 1.6 LV 4.1 LVPW 1.3 LA 4.6 Aorta 3.4 ICV 2.8 FINDINGS: This study is of rather limited technical quality corresponding to patient's morbid obesity. Only supine exam was performed, it is unclear what is underlying rhythm, most likely atrial fibrillation but based on some EKG strips it appears that there might be some form of atrioventricular (AV) dissociation. Left ventricle is normal size. Moderate left ventricular hypertrophy is present. Overall, probably normal left ventricular (LV) systolic function based on very limited views. Right ventricle appears dilated and hypokinetic. Both atria are enlarged. Limited view of aortic and mitral valve reveal relatively normal structure. Tricuspid and pulmonic valves were also poorly seen but appear grossly normal. Small noncompressive pericardial effusion located principally posteriorly to the left ventricle is noted. Inferior vena cava is markedly dilated without appreciable collapse indicative of very high central venous pressure. Aortic root is normal. Aortic arch and abdominal aorta were poorly visualized. Doppler interrogation reveals no significant aortic stenosis or insufficiency. Same applied for mitral valve. There is mild tricuspid insufficiency. Calculated pulmonary artery pressure is at least 40 mmHg and probably higher indicative of minimum moderate pulmonary hypertension. Pulmonic valve is functionally competent. Evaluation of diastolic function is inconclusive due to irregularity of underlying heart rate. CONCLUSIONS: 1. Study is of markedly limited technical quality corresponding to body habitus. Uncertain underlying rhythm, most likely atrial fibrillation. 2. Normal left ventricle (LV) size with moderate left ventricular hypertrophy and overall probably normal systolic function. 3. Dilated hypokinetic right ventricle. 4. No hemodynamically significant valvular disease. 5. Very high central venous pressure and at least moderate pulmonary hypertension. MTDD
[2020-06-30] MEDS: MAALOX 30 ML SUSP *UDC PO PRN (16:52)
[2020-06-30] MEDS: ACETAMINOPH W/CODEINE #3 TAB UD PO PRN (23:21)
[2020-07-01] VITALS (17 sets, daily range): BP systolic 118–136; BP diastolic 69–81; O2SAT 85–99
[2020-07-01 05:54] LABS: BASO % 0.6 % (0.0-1.0); EOS # 0.2 10^3/uL (0.0-0.5); HEMOGLOBIN 10.8 g/dl (12.0-15.5); LYMPH # 0.9 10^3/uL (1.5-5.0); LYMPH % 16.6 % (24.0-44.0); MEAN CORPUSCULAR HEMOGLOBIN 29.8 pg (27.0-33.0); MEAN CORPUSCULAR HGB CONC 28.4 g/dl (32.0-36.5); MEAN CORPUSCULAR VOLUME 104.7 fl (80.0-96.0); MONO # 0.8 10^3/uL (0.0-0.8); MONO % 16.2 % (0.0-5.0); NEUTROPHILS # 3.2 10^3/uL (1.5-8.5); NEUTROPHILS % 62.2 % (36.0-66.0); PLATELET COUNT, AUTOMATED 160 10^3/uL (150-450); RED BLOOD COUNT 3.63 10^6/uL (4.00-5.40); WHITE BLOOD COUNT 5.2 10^3/uL (4.0-10.0)
[2020-07-01] MEDS: LEVOTHYROXINE 100MCG TABLET (0.1MG) PO SCH (06:22)
[2020-07-01] MEDS: SLF 3 ML SYR IV SCH ×3 (06:22→20:49)
[2020-07-01] MEDS: LEVOTHYROXINE 75MCG TABLET (0.075MG) PO SCH (06:22)
[2020-07-01 06:55] LABS: BLOOD UREA NITROGEN 17 MG/DL (7-18); CALCIUM LEVEL 9.3 MG/DL (8.8-10.2); CARBON DIOXIDE LEVEL 50 MEQ/L (21-32); CHLORIDE LEVEL 87 MEQ/L (98-107); CREATININE FOR GFR 0.48 MG/DL (0.55-1.30); GLOMERULAR FILTRATION RATE > 60.0 (>39); GLUCOSE, FASTING 84 MG/DL (70-100); SODIUM LEVEL 137 MEQ/L (136-145)
[2020-07-01] MEDS: PANTOPRAZOLE 40MG TAB (PROTONIX) PO SCH (08:36)
[2020-07-01] MEDS: atenoloL 25 MG TAB PO SCH (08:37)
[2020-07-01] MEDS: ENOXAPARIN 40MG/0.4ML SYRINGE (J1650 PER 10MG) SC SCH (08:37)
[2020-07-01] MEDS: NYSTATIN CREAM 15 GM TOP SCH (08:38)
[2020-07-01] MEDS: DIMETHICONE 2% OINTMENT(VANICREAM) 70GM TUBE TOP SCH ×3 (08:38→20:46)
[2020-07-01] MEDS: NYSTATIN 100,000 UNITS/GM TOPICAL PWD 15 GM TOP SCH ×2 (08:39→20:43)
--- NOTE | 2020-07-01 10:09 | IPNPDOC ---
Text Note Date of Service The patient was seen on 07/01/20. NOTE Subjective: Pt denies CP/palpitations. HR better controlled. Objective: Vitals: (see below) General: No acute distress, laying comfortably in bed. HEENT: Moist mucous membranes. Neck: No JVD or lymphadenopathy Cardiac: irregularly irregular, No murmurs Pulm: Diminished at the bases b/l. No wheezing, rhonchi Abd: NT/ND + BS Ext: + edema BLE with chronic venous stasis and skin changes. No cyanosis. distal pulses intact. Labs (see below) Acute on Chronic hypoxic and Hypercapnic Respiratory Failure She has not been using her CPAP every day reports she uses if 4 to 5 times/ week The ABGs were reviewed they showed Respiratory acidosis with secondary metabolic alkalosis continue BIPAP and oxygen supplementation - Worsening CO2 likely 2/2 retention and diuresis with elevated BE. D/c lasix; - BIPAP adjusted by Dr. Fitzgerald. 06/29 -> CO2 improved to 90 today. - Appreciate pulmonary input Acute on chronic Hypoxic resp failure - likely 2/2 chf exac. - CTA chest to r/o PE as still has increased O2 req despite diuresis - echo pend Chronic Atrial fibrillation with rvr atenolol.--> increase to 75mg po daily - Refused anticoagulation given h/o GI Bleed - On ASA Acute on Chronic Diastolic CHF - improved. does not take her lasix regularly she is incontinent and its difficult to change frequently. D/c IV lasix daily weights/restrict fluids to 2L and salt to 2g Acute Metabolic encephalopathy was confused and lethargic on admission due to hypercarbia worse than baseline. Now better - episodic delirium 2/2 hypercarbia WAN/Obesity hypoventilation/restrictive lung disease continue with BIPAP The patient declined bariatric bed. A1c was 5.3 Severe Pulmonary hypertension with Corpulmonale BIPAP and Lasix. No pneumonia Possibly retrocardiac atelectasis. The only SIRS criteria she has is tachycardia due is due to Aib with rvr. CT chest could not be obtained because of her body habitus will stop levofloxacin. Hyponatremia Likely 2/2 fluid overload Chronic hypertension Atenolol and Lasix Hypothyroidism Levothyroxine Debility / Unsteady Gait At her baseline she uses a walker, stand to pivot only. Has a lift chair Plan: PT consult for early mobilization Super Morbid obesity BMI of 75.8 complicates care Chronic bilateral venous stasis with stasis dermatitis Bilateral stasis rubor with lymphedema History of recurrent urinary tract infections (UTIs) with extended spectrum beta-lactamase (ESBL) Escherichia (E) coli, Pyoderma gangrenosum on immunosuppressive therapy on tracrolimus oint GERD History of perforated gastric ulcer PPI Intermittent Functional diarrhea loperamide prn H/o KIDNEY STONE REMOVED W/STENT PLACEMENT 08/10/16, URETERAL STENT REMOVAL 10/02/2016 Overall prognosis guarded. Likely to need rehab on d/c. Not progressing well with PT. VS,Fishbone, I+O VS, Fishbone, I+O Laboratory Tests 07/01/20 05:22 Vital Signs Date Time Temp Pulse Resp B/P (MAP) Pulse Ox O2 Delivery O2 Flow Rate FiO2 07/01/20 08:37 98 128/73 07/01/20 08:00 98.3 22 94 High Flow Cannula 4.0 06/25/20 04:00 35 I&O- Last 24 Hours up to 6 AM 07/01/20 06:00 Intake Total 500 ml Output Total 700 ml Balance -200 ml RYAN CRAWFORD MD Jul 01, 2020 10:09
[2020-07-01 12:41] LABS: ABG BASE EXCESS 22.8 (-2.0-2.0); ABG HCO3 52.6 MEQ/L (22.0-26.0); ABG O2 SATURATION 99.4 % (95.0-99.0); ABG PARTIAL PRESSURE O2 147.2 mmHg (75.0-100.0); ABG STANDARD HCO3 47.5 MEQ/L (22.0-26.0); ABG TOTAL CO2 55.3 MEQ/L (23.0-31.0); ABG pH (ARTERIAL) 7.387 UNITS (7.350-7.450)
[2020-07-01 12:44] LABS: ABG PARTIAL PRESSURE CO2 89.5 mmHg (35.0-45.0)
[2020-07-01] MEDS: ASPIRIN 81 MG ENTERIC TAB PO SCH (18:36)
[2020-07-01] MEDS: MUPIROCIN 2% OINT 22 GM TUBE TOP SCH (20:43)
[2020-07-01] MEDS: ACETAMINOPH W/CODEINE #3 TAB UD PO PRN (22:39)
[2020-07-02] VITALS (18 sets, daily range): BP systolic 108–125; BP diastolic 58–71; O2SAT 87–97
[2020-07-02] MEDS: ACETAMINOPHEN TAB 650MG DOSE (2X325MG) PO PRN ×2 (04:06→13:02)
[2020-07-02 05:10] LABS: BASO % 0.8 % (0.0-1.0); EOS # 0.3 10^3/uL (0.0-0.5); EOS % 5.1 % (0.0-3.0); HEMATOCRIT 39.2 % (36.0-47.0); HEMOGLOBIN 11.1 g/dl (12.0-15.5); LYMPH % 18.6 % (24.0-44.0); MEAN CORPUSCULAR HGB CONC 28.3 g/dl (32.0-36.5); MEAN CORPUSCULAR VOLUME 105.9 fl (80.0-96.0); MONO # 0.8 10^3/uL (0.0-0.8); MONO % 14.9 % (0.0-5.0); NEUTROPHILS # 3.1 10^3/uL (1.5-8.5); NEUTROPHILS % 60.4 % (36.0-66.0); PLATELET COUNT, AUTOMATED 161 10^3/uL (150-450); WHITE BLOOD COUNT 5.1 10^3/uL (4.0-10.0)
[2020-07-02] MEDS: LEVOTHYROXINE 100MCG TABLET (0.1MG) PO SCH (05:47)
[2020-07-02] MEDS: LEVOTHYROXINE 75MCG TABLET (0.075MG) PO SCH (05:47)
[2020-07-02] MEDS: SLF 3 ML SYR IV SCH ×3 (06:17→21:03)
[2020-07-02 06:22] LABS: BLOOD UREA NITROGEN 15 MG/DL (7-18); CALCIUM LEVEL 9.3 MG/DL (8.8-10.2); CHLORIDE LEVEL 87 MEQ/L (98-107); CREATININE FOR GFR 0.55 MG/DL (0.55-1.30); GLOMERULAR FILTRATION RATE > 60.0 (>39); GLUCOSE, FASTING 89 MG/DL (70-100); SODIUM LEVEL 137 MEQ/L (136-145)
[2020-07-02 06:23] LABS: CARBON DIOXIDE LEVEL 51 MEQ/L (21-32)
[2020-07-02] MEDS: ENOXAPARIN 40MG/0.4ML SYRINGE (J1650 PER 10MG) SC SCH (08:35)
[2020-07-02] MEDS: atenoloL 25 MG TAB PO SCH (08:36)
[2020-07-02] MEDS: ASPIRIN 81 MG ENTERIC TAB PO SCH (08:36)
[2020-07-02] MEDS: PANTOPRAZOLE 40MG TAB (PROTONIX) PO SCH (08:36)
[2020-07-02] MEDS: NYSTATIN 100,000 UNITS/GM TOPICAL PWD 15 GM TOP SCH ×2 (08:37→21:03)
[2020-07-02] MEDS: DIMETHICONE 2% OINTMENT(VANICREAM) 70GM TUBE TOP SCH ×3 (08:38→21:04)
[2020-07-02] MEDS: NYSTATIN CREAM 15 GM TOP SCH (08:38)
--- NOTE | 2020-07-02 10:41 | ECGEPIP ---
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 No remarkable c changes ABNORMAL RHYTHM ECG Electronically Signed on 07-02-2020 10:41:07 EDT by Ghanshyam Oneil
--- NOTE | 2020-07-02 10:44 | IPNPDOC ---
Text Note Date of Service The patient was seen on 07/02/20. NOTE Subjective: Pt denies CP/palpitations. No sob. more awake and alert. Objective: Vitals: (see below) General: No acute distress, laying comfortably in bed. HEENT: Moist mucous membranes. Neck: No JVD or lymphadenopathy Cardiac: irregularly irregular, No murmurs Pulm: Diminished at the bases b/l. No wheezing, rhonchi Abd: NT/ND + BS Ext: + edema BLE with chronic venous stasis and skin changes. No cyanosis. distal pulses intact. Labs (see below) Acute on Chronic hypoxic and Hypercapnic Respiratory Failure She has not been using her CPAP every day reports she uses if 4 to 5 times/ week The ABGs were reviewed they showed Respiratory acidosis with secondary metabolic alkalosis continue BIPAP and oxygen supplementation - Worsening CO2 likely 2/2 retention and diuresis with elevated BE. D/c lasix; - BIPAP adjusted by Dr. Fitzgerald. 06/29 -> CO2 improved to 90 today. - Appreciate pulmonary input Acute on chronic Hypoxic resp failure - likely 2/2 chf exac. - CTA chest to r/o PE as still has increased O2 req despite diuresis - echo pend Chronic Atrial fibrillation with rvr atenolol.--> increase to 75mg po daily - Refused anticoagulation given h/o GI Bleed - On ASA Acute on Chronic Diastolic CHF - improved. does not take her lasix regularly she is incontinent and its difficult to change frequently. D/c IV lasix daily weights/restrict fluids to 2L and salt to 2g Acute Metabolic encephalopathy was confused and lethargic on admission due to hypercarbia worse than baseline. Now better - episodic delirium 2/2 hypercarbia WAN/Obesity hypoventilation/restrictive lung disease continue with BIPAP The patient declined bariatric bed. A1c was 5.3 Severe Pulmonary hypertension with Corpulmonale BIPAP and Lasix. No pneumonia Possibly retrocardiac atelectasis. The only SIRS criteria she has is tachycardia due is due to Aib with rvr. CT chest could not be obtained because of her body habitus will stop levofloxacin. Hyponatremia Likely 2/2 fluid overload Chronic hypertension Atenolol and Lasix Hypothyroidism Levothyroxine Debility / Unsteady Gait At her baseline she uses a walker, stand to pivot only. Has a lift chair Plan: PT consult for early mobilization Super Morbid obesity BMI of 75.8 complicates care Chronic bilateral venous stasis with stasis dermatitis Bilateral stasis rubor with lymphedema History of recurrent urinary tract infections (UTIs) with extended spectrum beta-lactamase (ESBL) Escherichia (E) coli, Pyoderma gangrenosum on immunosuppressive therapy on tracrolimus oint GERD History of perforated gastric ulcer PPI Intermittent Functional diarrhea loperamide prn H/o KIDNEY STONE REMOVED W/STENT PLACEMENT 08/10/16, URETERAL STENT REMOVAL 10/02/2016 Overall prognosis guarded. Likely to need rehab on d/c. Not progressing well with PT. VS,Fishbone, I+O VS, Fishbone, I+O Laboratory Tests 07/02/20 04:44 Vital Signs Date Time Temp Pulse Resp B/P (MAP) Pulse Ox O2 Delivery O2 Flow Rate FiO2 07/02/20 09:00 5.0 07/02/20 09:00 94 BIPAP/CPAP 07/02/20 08:36 105 121/60 07/02/20 08:00 97.5 20 I&O- Last 24 Hours up to 6 AM 07/02/20 06:00 Intake Total 835 ml Output Total 275 ml Balance 560 ml RYAN CRAWFORD MD Jul 02, 2020 10:44
--- NOTE | 2020-07-02 12:00 | ECGEPIP ---
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
--- NOTE | 2020-07-02 15:05 | CR ---
DATE: 06/28/2020 I was asked by Dr. Benavides to evaluate Ms. Sales here in the progressive care unit. She is a patient previously followed by Dr. Pizano for her severe underlying obstructive sleep apnea syndrome, obesity hypoventilation syndrome, and pulmonary hypertension. She is admitted on this occasion again with increasing difficulties related to shortness of breath. She was found to be in what was felt to be volume overloaded with a small right pleural effusion and some right basilar atelectasis. She has been aggressively diuresed. With that, she has had a commensurate increase in her serum bicarbonate with increase in her CO2 retention from a respiratory standpoint. I have evaluated her setting on her bilevel positive airway pressure (BIPAP). She was titrated to a continuous positive airway pressure (CPAP) of 14 in the lab and a compliance report from October of this year shows excellent compliance on that set pressure but still with an apnea hypopnea index (AHI) of approximately 10.2. She has not been seen in followup since. Currently, on exam, she is awake, alert, and appropriate. Blood pressure 121/68, respiratory rate approximately 22-24 without accessory muscle use. She is afebrile. Heart rate generally in the 100-110 and irregularly irregular. Pupils reactive. Sclerae clear. Trachea is in the midline. Membranes are moist. Airway is at least class III-IV. Jugular system difficult to assess in view of her body habitus. She has good air exchange anteriorly. Dependently quite difficult but I do believe it is a little bit more diminished at the right base than the left. There may be some basilar egophony, but again exam is suboptimal due to her body habitus. Cardiac exam is mildly tachycardic, irregular rate, peripheral pulses are diminished, there is at least 3+ to 4+ pitting lower extremity edema bilaterally. Abdomen morbidly obese, soft, with active bowel sounds, no obvious organomegaly or masses. Extremities show chronic venous stasis changes, no cyanosis or clubbing. Neurologically she is awake, alert, and appropriate, and psychiatric exam is with normal mood and affect. Laboratories have all been reviewed. Blood gas done this morning reportedly done on her bilevel of 11/04 with several liter oxygen bleed in has pH 7.295, pCO2 of 115.4, and PaO2 of 77.6. Sodium 136, potassium 2.9, chloride 85, CO2 52, BUN 21, creatinine 0.72, white blood cell count 4.8, hemoglobin 11.1, and platelet count 182,000. 66% segmented neutrophils, no bands. Most recent CT scan shows suboptimal inspiratory effort. There is some right basilar atelectasis probably compressive and there is a small right pleural effusion, but the entire film is markedly suboptimally ventilated. IMPRESSION: 1. Metabolic alkalosis with respiratory compensation. 2. Hypokalemia. 3. Pulmonary hypertension, severe. 4. Obesity hypoventilation syndrome. RECOMMENDATIONS: At this point, we will place her on the noninvasive settings that were titrated in the lab as I do believe she will do better. Certainly, her body habitus and bed rest is only compounding her situation. At this point, I believe they have reached the limits of her diuresis given her electrolytes and acid-base status. I would allow her to equalavate from the volume standpoint. We will make the adjustments in her noninvasive settings. Will continue the respiratory treatments. At this point, we will proceed as outlined above. Further recommendations will be made in the progress records as new information becomes available. RACHEL
--- NOTE | 2020-07-02 15:07 | IPN ---
DATE: 06/29/2020 SUBJECTIVE: I again attended Stephanie Sales. Patient examined and chart reviewed. Spoke at length with the nurse at the bedside. The patient states she slept better on her higher BiPAP pressure. She awoke however about 0400 somewhat confused. She cannot tell me if she was short of breath or gasping at that time. She is fairly comfortable at the moment. Maximum temperature (T-max) overnight 97.6, blood pressure 120s generally. Heart rate 80-100 and irregular. Respiratory rate 16-22 without accessory muscle use. Input and output midnight to midnight 630 mL in with 2150 mL out. Most recent laboratories show a white blood cell count of 4.7, hemoglobin 11.2, platelet count 164,000, 63% segs. No bands. Sodium 139, K 3.8, chloride 88, CO2 53, BUN 18, creatinine 0.62. Blood gas done this morning reportedly on 8 liters nasal cannula showed a pH of 7.327, pCO2 of 101.4 and a pO2 of 75.7. PHYSICAL EXAMINATION: General: She is awake, alert, and appropriate. She is comfortable. Pupils react. Sclerae clear. Trachea is in the midline. Chest does show diminished breath sounds, symmetrical expansion. There are some dependent crackles. No convincing rhonchi or rubs. Cardiac exam: Irregularly irregular, distant. Peripheral pulses are palpable. Edema is unchanged. Abdomen: Morbidly obese, soft with active bowel sounds. Extremities show chronic venous stasis changes with no cyanosis or clubbing. Neurologically she is awake, alert, and appropriate. Psychiatric exam is with normal mood and affect. IMPRESSION: 1. Mixed acid base disorder, somewhat nosocomial. 2. Edavd-fr-yiuqrhs respiratory failure both hypoxemic and hypercapnic. 3. Obstructive apnea syndrome. 4. Morbid obesity. 5. Obesity hypoventilation syndrome. 6. Cor pulmonale and pulmonary hypertension. RECOMMENDATIONS: At this point in view of her diuresis she has a significant contraction alkalosis which is in part driving her increased CO2 retention. At this point two options exist, either allow her to equilibrate on her own or continue slow dose Diamox in hopes of helping her reset somewhat. I believe she is still volume overloaded but in view of the above, judicious approach to this is imperative. Her electrolytes are being repleted by primary. On her most recent download from her home machine, CPAP of 14 still left her with a respiratory disturbance index of about 10-12. In view of that coupled with her current status and the fact that she awoken during the night on an EPAP pressure of 14, we will try gingerly increasing that pressure and repeating a nocturnal oximetry. We will proceed as outlined above. She remains DO NOT RESUSCITATE, DO NOT INTUBATE and I believe that is appropriate. Further recommendations will be made in the progress records as new information becomes available. RACHEL
[2020-07-02] MEDS: ACETAMINOPH W/CODEINE #3 TAB UD PO PRN (23:27)
[2020-07-03] VITALS (12 sets, daily range): BP systolic 108–135; BP diastolic 60–70; O2SAT 87–95
[2020-07-03] MEDS: LEVOTHYROXINE 75MCG TABLET (0.075MG) PO SCH (05:20)
[2020-07-03] MEDS: SLF 3 ML SYR IV SCH ×3 (05:20→21:17)
[2020-07-03] MEDS: LEVOTHYROXINE 100MCG TABLET (0.1MG) PO SCH (05:20)
[2020-07-03] MEDS: atenoloL 25 MG TAB PO SCH (08:50)
[2020-07-03] MEDS: PANTOPRAZOLE 40MG TAB (PROTONIX) PO SCH (08:50)
[2020-07-03] MEDS: ASPIRIN 81 MG ENTERIC TAB PO SCH (08:50)
[2020-07-03] MEDS: ENOXAPARIN 40MG/0.4ML SYRINGE (J1650 PER 10MG) SC SCH (08:50)
[2020-07-03] MEDS: NYSTATIN CREAM 15 GM TOP SCH (08:51)
[2020-07-03] MEDS: DIMETHICONE 2% OINTMENT(VANICREAM) 70GM TUBE TOP SCH ×3 (08:52→21:17)
[2020-07-03] MEDS: NYSTATIN 100,000 UNITS/GM TOPICAL PWD 15 GM TOP SCH ×2 (08:52→21:16)
[2020-07-03] MEDS: ALBUTEROL 90 MCG/ACT 8GM HFA INHALER INH PRN (11:29)
[2020-07-03] MEDS ORDERED: atenoloL 25 MG TAB PO ONE (14:00)
[2020-07-03] MEDS: ACETAMINOPHEN TAB 650MG DOSE (2X325MG) PO PRN (14:33)
[2020-07-03] MEDS: MOM 30ML SUSPENSION UDC PO PRN (16:54)
[2020-07-03] MEDS: MUPIROCIN 2% OINT 22 GM TUBE TOP SCH (21:16)
[2020-07-03] MEDS: ACETAMINOPH W/CODEINE #3 TAB UD PO PRN (22:16)
[2020-07-04] MEDS: ACETAMINOPHEN TAB 650MG DOSE (2X325MG) PO PRN ×2 (01:41→09:50)
[2020-07-04 05:57] LABS: HEMATOCRIT 39.9 % (36.0-47.0); HEMOGLOBIN 11.4 g/dl (12.0-15.5); MEAN CORPUSCULAR HEMOGLOBIN 30.2 pg (27.0-33.0); MEAN CORPUSCULAR HGB CONC 28.6 g/dl (32.0-36.5); MEAN CORPUSCULAR VOLUME 105.6 fl (80.0-96.0); PLATELET COUNT, AUTOMATED 162 10^3/uL (150-450); RED BLOOD COUNT 3.78 10^6/uL (4.00-5.40); WHITE BLOOD COUNT 5.3 10^3/uL (4.0-10.0)
[2020-07-04 06:00] VITALS: BP 107/57
[2020-07-04] MEDS: SLF 3 ML SYR IV SCH ×3 (06:01→22:35)
[2020-07-04] MEDS: LEVOTHYROXINE 75MCG TABLET (0.075MG) PO SCH (06:01)
[2020-07-04] MEDS: LEVOTHYROXINE 100MCG TABLET (0.1MG) PO SCH (06:01)
[2020-07-04 06:40] LABS: BLOOD UREA NITROGEN 14 MG/DL (7-18); CALCIUM LEVEL 9.2 MG/DL (8.8-10.2); CARBON DIOXIDE LEVEL 47 MEQ/L (21-32); CHLORIDE LEVEL 87 MEQ/L (98-107); GLOMERULAR FILTRATION RATE > 60.0 (>39); GLUCOSE, FASTING 92 MG/DL (70-100); POTASSIUM SERUM 4.7 MEQ/L (3.5-5.1); SODIUM LEVEL 135 MEQ/L (136-145)
[2020-07-04] MEDS: ASPIRIN 81 MG ENTERIC TAB PO SCH (09:47)
[2020-07-04] MEDS: PANTOPRAZOLE 40MG TAB (PROTONIX) PO SCH (09:47)
[2020-07-04] MEDS: ENOXAPARIN 40MG/0.4ML SYRINGE (J1650 PER 10MG) SC SCH (09:48)
[2020-07-04] MEDS: NYSTATIN CREAM 15 GM TOP SCH (09:48)
[2020-07-04] MEDS: atenoloL 25 MG TAB PO SCH (09:48)
[2020-07-04] MEDS: DIMETHICONE 2% OINTMENT(VANICREAM) 70GM TUBE TOP SCH ×3 (09:49→22:34)
[2020-07-04] MEDS: NYSTATIN 100,000 UNITS/GM TOPICAL PWD 15 GM TOP SCH ×2 (09:49→22:34)
[2020-07-04 10:00] VITALS: BP 116/68; O2SAT 91
[2020-07-04 14:00] VITALS: BP 117/69
[2020-07-04 18:00] VITALS: BP 114/68
[2020-07-04 22:00] VITALS: BP 111/66
[2020-07-04] MEDS: ACETAMINOPH W/CODEINE #3 TAB UD PO PRN (22:36)
[2020-07-05] VITALS (7 sets, daily range): BP systolic 106–113; BP diastolic 58–63; O2SAT 96
[2020-07-05 06:04] LABS: ABG HCO3 50.4 MEQ/L (22.0-26.0); ABG O2 SATURATION 97.2 % (95.0-99.0); ABG PARTIAL PRESSURE O2 90.8 mmHg (75.0-100.0); ABG STANDARD HCO3 46.6 MEQ/L (22.0-26.0); ABG TOTAL CO2 52.8 MEQ/L (23.0-31.0); ABG pH (ARTERIAL) 7.434 UNITS (7.350-7.450)
[2020-07-05] MEDS: LEVOTHYROXINE 100MCG TABLET (0.1MG) PO SCH (06:27)
[2020-07-05] MEDS: LEVOTHYROXINE 75MCG TABLET (0.075MG) PO SCH (06:27)
[2020-07-05] MEDS: SLF 3 ML SYR IV SCH ×3 (06:28→22:23)
[2020-07-05 06:32] LABS: HEMATOCRIT 38.6 % (36.0-47.0); HEMOGLOBIN 11.3 g/dl (12.0-15.5); MEAN CORPUSCULAR HEMOGLOBIN 30.9 pg (27.0-33.0); MEAN CORPUSCULAR HGB CONC 29.3 g/dl (32.0-36.5); MEAN CORPUSCULAR VOLUME 105.5 fl (80.0-96.0); PLATELET COUNT, AUTOMATED 166 10^3/uL (150-450); RED BLOOD COUNT 3.66 10^6/uL (4.00-5.40); WHITE BLOOD COUNT 4.8 10^3/uL (4.0-10.0)
[2020-07-05 08:19] LABS: BLOOD UREA NITROGEN 12 MG/DL (7-18); CALCIUM LEVEL 8.7 MG/DL (8.8-10.2); CARBON DIOXIDE LEVEL 53 MEQ/L (21-32); CHLORIDE LEVEL 88 MEQ/L (98-107); CREATININE FOR GFR 0.48 MG/DL (0.55-1.30); GLOMERULAR FILTRATION RATE > 60.0 (>39); GLUCOSE, FASTING 76 MG/DL (70-100); POTASSIUM SERUM 4.5 MEQ/L (3.5-5.1); SODIUM LEVEL 136 MEQ/L (136-145)
[2020-07-05] MEDS: PANTOPRAZOLE 40MG TAB (PROTONIX) PO SCH (08:30)
[2020-07-05] MEDS: ASPIRIN 81 MG ENTERIC TAB PO SCH (08:30)
[2020-07-05] MEDS: atenoloL 25 MG TAB PO SCH ×2 (08:31→09:42)
[2020-07-05] MEDS: ENOXAPARIN 40MG/0.4ML SYRINGE (J1650 PER 10MG) SC SCH (08:32)
[2020-07-05] MEDS: NYSTATIN CREAM 15 GM TOP SCH (09:00)
[2020-07-05] MEDS: DIMETHICONE 2% OINTMENT(VANICREAM) 70GM TUBE TOP SCH ×3 (09:00→22:23)
[2020-07-05] MEDS: NYSTATIN 100,000 UNITS/GM TOPICAL PWD 15 GM TOP SCH ×2 (09:44→22:22)
[2020-07-05] MEDS: MAALOX 30 ML SUSP *UDC PO PRN (15:57)
--- NOTE | 2020-07-05 18:05 | IPNPDOC ---
Text Note Date of Service The patient was seen on 07/04/20. NOTE Subjective: No complaints this morning. Awake , alert. Can hardly do much with PT. Has landeros is place which she does not want removed. Objective: Vitals: (see below) General: No acute distress, laying comfortably in bed. morbidly obese HEENT: Moist mucous membranes. Neck: No JVD or lymphadenopathy Cardiac: irregularly irregular, No murmurs/ rub or gallop Pulm: Distant breath sounds, Diminished at the bases b/l. No wheezing, rhonchi Abd: NT/ND + BS Ext: + edema BLE with chronic venous stasis and skin changes. No cyanosis. distal pulses intact. Lymphedema. Labs and radiology reviewed Assessment and plan: Ms. Sales is a 75 old with a history of chronic diastolic CHF, chronic O2 dependent respiratory failure, HTN, atrial fibrillation, hypothyroidism, pyoderma gangrenosum, and chronic lower extremity venous stasis, & morbid obesity presented with complaints of gradually worsening dyspnea, dizziness, lethargy, and shaking of her hands, which is likely due to combination of decompensated diastolic CHF and acute hypercapnia. Acute on Chronic hypoxic and Hypercapnic Respiratory Failure due to CHF exacerbation, Noncompliance with BIPAP. started on aggressive diuresis with worsening of Bicarb and pCO2, The ABGs were reviewed they showed Respiratory acidosis with secondary metabolic alkalosis Worsening CO2 likely 2/2 due to diuresis and chronic resp failure due to WAN and Obesity hypoventilation not corrected by her home settings of BIPAP BIPAP adjusted by Dr. Fitzgerald on 06/29 to Appreciate pulmonary input Acute on Chronic Diastolic CHF improving does not take her lasix regularly she is incontinent and its difficult to change frequently. daily weights/restrict fluids to 2L and salt to 2g will restart diuretics once bicarb < 45 Echo: 1. Study is of markedly limited technical quality corresponding to body habitus. Uncertain underlying rhythm, most likely atrial fibrillation. 2. Normal left ventricle (LV) size with moderate left ventricular hypertrophy and overall probably normal systolic function. 3. Dilated hypokinetic right ventricle. 4. No hemodynamically significant valvular disease. 5. Very high central venous pressure and at least moderate pulmonary hypertension Chronic Atrial fibrillation with rvr atenolol.--> increase to 75mg po daily Refused anticoagulation given h/o GI Bleed On ASA Acute Metabolic encephalopathy was confused and lethargic on admission due to hypercarbia worse than baseline. Now better Episodic delirium 2/2 hypercarbia WAN/Obesity hypoventilation/restrictive lung disease continue with BIPAP The patient declined bariatric bed. A1c was 5.3 Severe Pulmonary hypertension with Corpulmonale BIPAP and Lasix. Hyponatremia Likely 2/2 fluid overload resolved Chronic hypertension Atenolol Hypothyroidism Levothyroxine Debility / Unsteady Gait At her baseline she uses a walker, stand to pivot only. Has a lift chair cont PT/OT Super Morbid obesity BMI of 75.8 complicates care Chronic bilateral venous stasis with stasis dermatitis Bilateral stasis rubor with lymphedema will resume diuresis once bicarb is better and metabolic alkalosis is corrected. History of recurrent urinary tract infections (UTIs) with extended spectrum beta-lactamase (ESBL) Escherichia (E) coli, Pyoderma gangrenosum on immunosuppressive therapy on tracrolimus oint GERD History of perforated gastric ulcer PPI Intermittent Functional diarrhea loperamide prn H/o KIDNEY STONE REMOVED W/STENT PLACEMENT 08/10/16, URETERAL STENT REMOVAL 10/02/2016 Dispo : Likely to need continued rehab on d/c. Not progressing well with PT. VS,Fishbone, I+O VS, Fishbone, I+O Laboratory Tests 07/04/20 05:27 Vital Signs Date Time Temp Pulse Resp B/P (MAP) Pulse Ox O2 Delivery O2 Flow Rate FiO2 07/04/20 09:48 101 116/68 07/04/20 06:00 98.0 18 93 Nasal Cannula 2.0 07/02/20 23:27 35 I&O- Last 24 Hours up to 6 AM 07/04/20 06:00 Intake Total 1080 ml Output Total 950 ml Balance 130 ml MIRACLE LOBO MD Jul 04, 2020 13:41
--- NOTE | 2020-07-05 18:10 | IPNPDOC ---
Text Note Date of Service The patient was seen on 07/05/20. NOTE Subjective: No complaints this morning. Awake, Using bipap consistently. Not progressing at all with PT. ABG back to baseline. Will start diuresis again. Objective: Vitals: (see below) General: No acute distress, laying comfortably in bed. morbidly obese HEENT: Moist mucous membranes. Neck: No JVD or lymphadenopathy Cardiac: irregularly irregular, No murmurs/ rub or gallop Pulm: Distant breath sounds, Diminished at the bases b/l. No wheezing, rhonchi Abd: NT/ND + BS Ext: + edema BLE with chronic venous stasis and skin changes. No cyanosis. distal pulses intact. Lymphedema. Labs and radiology reviewed Assessment and plan: Ms. Sales is a 75 old with a history of chronic diastolic CHF, chronic O2 dependent respiratory failure, HTN, atrial fibrillation, hypothy roidism, pyoderma gangrenosum, and chronic lower extremity venous stasis, & morbid obesity presented with complaints of gradually worsening dyspnea, dizziness, lethargy, and shaking of her hands, which is likely due to combination of decompensated diastolic CHF and acute hypercapnia. Acute on Chronic hypoxic and Hypercapnic Respiratory Failure due to CHF exacerbation, Noncompliance with BIPAP. Aggressive diuresis worsened the Bicarb and pCO2, The ABGs were reviewed they showed Respiratory acidosis with secondary metabolic alkalosis Worsening CO2 likely 2/2 due to diuresis and chronic resp failure due to WAN and Obesity hypoventilation not corrected by her home settings of BIPAP BIPAP adjusted by Dr. Fitzgerald on 06/29 to ABG back t baseline again. will restart diuresis. Acute on Chronic Diastolic CHF ABG back to baseline daily weights/restrict fluids to 2L and salt to 2g will restart diuresis. Echo: 1. Study is of markedly limited technical quality corresponding to body habitus. Uncertain underlying rhythm, most likely atrial fibrillation. 2. Normal left ventricle (LV) size with moderate left ventricular hypertrophy and overall probably normal systolic function. 3. Dilated hypokinetic right ventricle. 4. No hemodynamically significant valvular disease. 5. Very high central venous pressure and at least moderate pulmonary hypertension Chronic Atrial fibrillation with rvr atenolol.--> increase to 75mg po daily Refused anticoagulation given h/o GI Bleed On ASA Acute Metabolic encephalopathy was confused and lethargic on admission due to hypercarbia worse than baseline. Now better Episodic delirium 2/2 hypercarbia WAN/Obesity hypoventilation/restrictive lung disease continue with BIPAP The patient declined bariatric bed. A1c was 5.3 Severe Pulmonary hypertension with Corpulmonale BIPAP and Lasix. Hyponatremia Likely 2/2 fluid overload resolved Chronic hypertension Atenolol Hypothyroidism Levothyroxine Debility / Unsteady Gait At her baseline she uses a walker, stand to pivot only. Has a lift chair cont PT/OT Super Morbid obesity BMI of 75.8 complicates care Chronic bilateral venous stasis with stasis dermatitis Bilateral stasis rubor with lymphedema will resume diuresis once bicarb is better and metabolic alkalosis is corrected. History of recurrent urinary tract infections (UTIs) with extended spectrum beta-lactamase (ESBL) Escherichia (E) coli, Pyoderma gangrenosum on immunosuppressive therapy on tracrolimus oint GERD History of perforated gastric ulcer PPI Intermittent Functional diarrhea loperamide prn H/o KIDNEY STONE REMOVED W/STENT PLACEMENT 08/10/16, URETERAL STENT REMOVAL 10/02/2016 Dispo : to Rehab. Not progressing well with PT. VS,Fishbone, I+O VS, Fishbone, I+O Laboratory Tests 07/05/20 06:14 Vital Signs Date Time Temp Pulse Resp B/P (MAP) Pulse Ox O2 Delivery O2 Flow Rate FiO2 07/05/20 14:00 99.2 79 20 107/61 (76) 97 Nasal Cannula 3.0 07/02/20 23:27 35 I&O- Last 24 Hours up to 6 AM 07/05/20 07:00 Intake Total 1255 ml Output Total 1100 ml Balance 155 ml MIRACLE LOBO MD Jul 05, 2020 18:09
[2020-07-05] MEDS: FUROSEMIDE 40MG/4ML VIAL (J1940) IV SCH (18:34)
[2020-07-05] MEDS: MUPIROCIN 2% OINT 22 GM TUBE TOP SCH (22:22)
[2020-07-06] VITALS (7 sets, daily range): BP systolic 92–117; BP diastolic 57–62; O2SAT 92
[2020-07-06] MEDS: FUROSEMIDE 40MG/4ML VIAL (J1940) IV SCH ×2 (00:36→06:00)
[2020-07-06] MEDS: ACETAMINOPH W/CODEINE #3 TAB UD PO PRN ×2 (01:16→22:26)
[2020-07-06 06:23] LABS: HEMATOCRIT 42.7 % (36.0-47.0); HEMOGLOBIN 12.2 g/dl (12.0-15.5); MEAN CORPUSCULAR HEMOGLOBIN 30.8 pg (27.0-33.0); MEAN CORPUSCULAR HGB CONC 28.6 g/dl (32.0-36.5); MEAN CORPUSCULAR VOLUME 107.8 fl (80.0-96.0); PLATELET COUNT, AUTOMATED 189 10^3/uL (150-450); RED BLOOD COUNT 3.96 10^6/uL (4.00-5.40); WHITE BLOOD COUNT 5.6 10^3/uL (4.0-10.0)
[2020-07-06] MEDS: LEVOTHYROXINE 75MCG TABLET (0.075MG) PO SCH (06:30)
[2020-07-06] MEDS: LEVOTHYROXINE 100MCG TABLET (0.1MG) PO SCH (06:30)
[2020-07-06] MEDS: SLF 3 ML SYR IV SCH ×3 (06:30→21:08)
[2020-07-06 07:16] LABS: BLOOD UREA NITROGEN 12 MG/DL (7-18); CALCIUM LEVEL 8.7 MG/DL (8.8-10.2); CARBON DIOXIDE LEVEL 52 MEQ/L (21-32); CHLORIDE LEVEL 86 MEQ/L (98-107); CREATININE FOR GFR 0.59 MG/DL (0.55-1.30); GLOMERULAR FILTRATION RATE > 60.0 (>39); GLUCOSE, FASTING 96 MG/DL (70-100); POTASSIUM SERUM 4.3 MEQ/L (3.5-5.1); SODIUM LEVEL 137 MEQ/L (136-145)
[2020-07-06] MEDS: atenoloL 25 MG TAB PO SCH (09:00)
[2020-07-06] MEDS: TORSEMIDE 20 MG TAB PO SCH ×2 (09:51→18:07)
[2020-07-06] MEDS: ASPIRIN 81 MG ENTERIC TAB PO SCH (09:51)
[2020-07-06] MEDS: PANTOPRAZOLE 40MG TAB (PROTONIX) PO SCH (09:51)
[2020-07-06] MEDS: ENOXAPARIN 40MG/0.4ML SYRINGE (J1650 PER 10MG) SC SCH (09:52)
[2020-07-06] MEDS: NYSTATIN 100,000 UNITS/GM TOPICAL PWD 15 GM TOP SCH ×2 (09:52→21:08)
[2020-07-06] MEDS: DIMETHICONE 2% OINTMENT(VANICREAM) 70GM TUBE TOP SCH ×3 (09:53→21:09)
[2020-07-06] MEDS: NYSTATIN CREAM 15 GM TOP SCH (09:53)
--- NOTE | 2020-07-06 13:26 | IPNPDOC ---
Text Note Date of Service The patient was seen on 07/06/20. NOTE Subjective: No complaints this morning. Awake, Using bipap consistently. Not progressing at all with PT. ABG back to baseline. Objective: Vitals: (see below) General: No acute distress, laying comfortably in bed. morbidly obese HEENT: Moist mucous membranes. Neck: No JVD or lymphadenopathy Cardiac: irregularly irregular, No murmurs/ rub or gallop Pulm: Distant breath sounds, Diminished at the bases b/l. No wheezing, rhonchi Abd: NT/ND + BS Ext: + edema BLE with chronic venous stasis and skin changes. No cyanosis. distal pulses intact. Lymphedema. Labs reviewed Imaging: CT angiogram of the chest. No definite pulmonary embolism identified. Moderate right and very small left pleural effusions. Labs of the right lower lobe potentially related to effusion, but recommend follow-up to exclude obstructing pathology, dependent atelectasis elsewhere with potential mild airspace consolidation in the lingula Assessment and plan: Ms. Sales is a 75 old with a history of chronic diastolic CHF, chronic O2 dependent respiratory failure, HTN, atrial fibrillation, hypot hyroidism, pyoderma gangrenosum, and chronic lower extremity venous stasis, & morbid obesity presented with complaints of gradually worsening dyspnea, dizziness, lethargy, and shaking of her hands, which is likely due to combination of decompensated diastolic CHF and acute hypercapnia. Acute on Chronic hypoxic and Hypercapnic Respiratory Failure due to CHF exacerbation, Noncompliance with BIPAP. Aggressive diuresis worsened the Bicarb and pCO2, The ABGs were reviewed they showed Respiratory acidosis with secondary metabolic alkalosis Worsening CO2 likely 2/2 due to diuresis and chronic resp failure due to WAN and Obesity hypoventilation not corrected by her home settings of BIPAP BIPAP adjusted by Dr. Fitzgerald on 06/29 to ABG back to baseline again. cont diuresis. Acute on Chronic Diastolic CHF ABG back to baseline daily weights/restrict fluids to 2L and salt to 2g will restart diuresis. Echo: 1. Study is of markedly limited technical quality corresponding to body habitus. Uncertain underlying rhythm, most likely atrial fibrillation. 2. Normal left ventricle (LV) size with moderate left ventricular hypertrophy and overall probably normal systolic function. 3. Dilated hypokinetic right ventricle. 4. No hemodynamically significant valvular disease. 5. Very high central venous pressure and at least moderate pulmonary hypertension Chronic Atrial fibrillation with rvr atenolol.--> increase to 75mg po daily Refused anticoagulation given h/o GI Bleed On ASA Acute Metabolic encephalopathy was confused and lethargic on admission due to hypercarbia worse than baseline. Now better Episodic delirium 2/2 hypercarbia WAN/Obesity hypoventilation/restrictive lung disease continue with BIPAP The patient declined bariatric bed. A1c was 5.3 Severe Pulmonary hypertension with Corpulmonale BIPAP and Lasix. Hyponatremia Likely 2/2 fluid overload resolved Chronic hypertension Atenolol Hypothyroidism Levothyroxine Debility / Unsteady Gait At her baseline she uses a walker, stand to pivot only. Has a lift chair cont PT/OT Super Morbid obesity BMI of 75.8 complicates care Chronic bilateral venous stasis with stasis dermatitis Bilateral stasis rubor with lymphedema will resume diuresis once bicarb is better and metabolic alkalosis is corrected. History of recurrent urinary tract infections (UTIs) with extended spectrum beta-lactamase (ESBL) Escherichia (E) coli, Pyoderma gangrenosum on immunosuppressive therapy on tracrolimus oint GERD History of perforated gastric ulcer PPI Intermittent Functional diarrhea loperamide prn H/o KIDNEY STONE REMOVED W/STENT PLACEMENT 08/10/16, URETERAL STENT REMOVAL 10/02/2016 Dispo : to Rehab. Not progressing well with PT. VS,Fishbone, I+O VS, Fishbone, I+O Laboratory Tests 07/06/20 06:02 Vital Signs Date Time Temp Pulse Resp B/P (MAP) Pulse Ox O2 Delivery O2 Flow Rate FiO2 07/06/20 10:41 92 Nasal Cannula 4.0 07/06/20 10:00 98.5 102 20 92/58 (69) 07/02/20 23:27 35 I&O- Last 24 Hours up to 6 AM 07/06/20 06:00 Intake Total 1065 ml Output Total 2200 ml Balance -1135 ml MIRACLE LOBO MD Jul 06, 2020 13:26
[2020-07-06] MEDS: ALBUTEROL 90 MCG/ACT 8GM HFA INHALER INH PRN (16:08)
[2020-07-07 02:00] VITALS: BP 101/58
[2020-07-07 04:00] VITALS: O2SAT 89
[2020-07-07] MEDS: LEVOTHYROXINE 100MCG TABLET (0.1MG) PO SCH (05:46)
[2020-07-07] MEDS: LEVOTHYROXINE 75MCG TABLET (0.075MG) PO SCH (05:46)
[2020-07-07] MEDS: SLF 3 ML SYR IV SCH ×3 (05:47→22:13)
[2020-07-07 05:56] LABS: HEMATOCRIT 38.6 % (36.0-47.0); MEAN CORPUSCULAR HEMOGLOBIN 30.2 pg (27.0-33.0); MEAN CORPUSCULAR HGB CONC 28.5 g/dl (32.0-36.5); PLATELET COUNT, AUTOMATED 185 10^3/uL (150-450); RED BLOOD COUNT 3.64 10^6/uL (4.00-5.40); WHITE BLOOD COUNT 5.7 10^3/uL (4.0-10.0)
[2020-07-07 06:00] VITALS: BP 102/59
[2020-07-07 06:33] LABS: BLOOD UREA NITROGEN 12 MG/DL (7-18); CALCIUM LEVEL 8.6 MG/DL (8.8-10.2); CARBON DIOXIDE LEVEL 51 MEQ/L (21-32); CHLORIDE LEVEL 86 MEQ/L (98-107); CREATININE FOR GFR 0.56 MG/DL (0.55-1.30); GLOMERULAR FILTRATION RATE > 60.0 (>39); GLUCOSE, FASTING 91 MG/DL (70-100); POTASSIUM SERUM 3.4 MEQ/L (3.5-5.1); SODIUM LEVEL 137 MEQ/L (136-145)
[2020-07-07] MEDS: ASPIRIN 81 MG ENTERIC TAB PO SCH (08:33)
[2020-07-07] MEDS: ENOXAPARIN 40MG/0.4ML SYRINGE (J1650 PER 10MG) SC SCH (08:33)
[2020-07-07] MEDS: PANTOPRAZOLE 40MG TAB (PROTONIX) PO SCH (08:33)
[2020-07-07] MEDS: DIMETHICONE 2% OINTMENT(VANICREAM) 70GM TUBE TOP SCH ×3 (08:34→22:13)
[2020-07-07] MEDS: TORSEMIDE 20 MG TAB PO SCH ×2 (08:34→16:40)
[2020-07-07] MEDS: atenoloL 50 MG TAB PO SCH (08:34)
[2020-07-07] MEDS: NYSTATIN CREAM 15 GM TOP SCH (08:35)
[2020-07-07] MEDS: NYSTATIN 100,000 UNITS/GM TOPICAL PWD 15 GM TOP SCH ×2 (08:36→22:12)
[2020-07-07] MEDS: ACETAMINOPHEN TAB 650MG DOSE (2X325MG) PO PRN (08:40)
[2020-07-07 10:00] VITALS: BP 102/58
[2020-07-07] MEDS ORDERED: POTASSIUM CHLORIDE 10 MEQ SR TABLET PO ONE (11:00)
[2020-07-07 14:00] VITALS: BP 110/57
[2020-07-07] MEDS: MUPIROCIN 2% OINT 22 GM TUBE TOP SCH (22:13)
[2020-07-08 03:28] VITALS: O2SAT 94; O2SAT 95
[2020-07-08 04:19] VITALS: O2SAT 94
[2020-07-08] MEDS: LEVOTHYROXINE 100MCG TABLET (0.1MG) PO SCH (05:43)
[2020-07-08] MEDS: SLF 3 ML SYR IV SCH (05:43)
[2020-07-08] MEDS: LEVOTHYROXINE 75MCG TABLET (0.075MG) PO SCH (05:43)
[2020-07-08] MEDS: ACETAMINOPHEN TAB 650MG DOSE (2X325MG) PO PRN (05:44)
[2020-07-08 06:00] VITALS: BP 108/58
[2020-07-08] MEDS: atenoloL 50 MG TAB PO SCH (09:00)
[2020-07-08] MEDS: MOM 30ML SUSPENSION UDC PO PRN (09:22)
[2020-07-08] MEDS: ASPIRIN 81 MG ENTERIC TAB PO SCH (09:23)
[2020-07-08] MEDS: ENOXAPARIN 40MG/0.4ML SYRINGE (J1650 PER 10MG) SC SCH (09:23)
[2020-07-08] MEDS: PANTOPRAZOLE 40MG TAB (PROTONIX) PO SCH (09:23)
[2020-07-08] MEDS: DIMETHICONE 2% OINTMENT(VANICREAM) 70GM TUBE TOP SCH ×3 (09:24→21:49)
[2020-07-08] MEDS: TORSEMIDE 20 MG TAB PO SCH ×2 (09:24→17:17)
[2020-07-08] MEDS: NYSTATIN CREAM 15 GM TOP SCH (09:25)
[2020-07-08] MEDS: NYSTATIN 100,000 UNITS/GM TOPICAL PWD 15 GM TOP SCH ×2 (09:25→21:49)
[2020-07-08 13:21] VITALS: O2SAT 93
[2020-07-08 21:00] VITALS: O2SAT 93
[2020-07-08] MEDS: ACETAMINOPH W/CODEINE #3 TAB UD PO PRN (22:10)
[2020-07-09] MEDS: LEVOTHYROXINE 100MCG TABLET (0.1MG) PO SCH (05:35)
[2020-07-09] MEDS: LEVOTHYROXINE 75MCG TABLET (0.075MG) PO SCH (05:35)
[2020-07-09] MEDS: PANTOPRAZOLE 40MG TAB (PROTONIX) PO SCH (10:48)
[2020-07-09] MEDS: TORSEMIDE 20 MG TAB PO SCH ×2 (10:48→16:29)
[2020-07-09] MEDS: ASPIRIN 81 MG ENTERIC TAB PO SCH (10:48)
[2020-07-09] MEDS: ENOXAPARIN 40MG/0.4ML SYRINGE (J1650 PER 10MG) SC SCH (10:49)
[2020-07-09] MEDS: DIMETHICONE 2% OINTMENT(VANICREAM) 70GM TUBE TOP SCH ×3 (10:49→20:37)
[2020-07-09] MEDS: NYSTATIN CREAM 15 GM TOP SCH (10:50)
[2020-07-09] MEDS: NYSTATIN 100,000 UNITS/GM TOPICAL PWD 15 GM TOP SCH ×2 (10:50→20:36)
[2020-07-09] MEDS: atenoloL 50 MG TAB PO SCH (10:53)
[2020-07-09] MEDS: ALBUTEROL 90 MCG/ACT 8GM HFA INHALER INH PRN (13:31)
[2020-07-09] MEDS: ACETAMINOPHEN TAB 650MG DOSE (2X325MG) PO PRN (16:30)
[2020-07-09] MEDS: MUPIROCIN 2% OINT 22 GM TUBE TOP SCH (20:37)
[2020-07-09 21:00] VITALS: O2SAT 94
[2020-07-09] MEDS: ACETAMINOPH W/CODEINE #3 TAB UD PO PRN (23:19)
[2020-07-10] MEDS: LEVOTHYROXINE 75MCG TABLET (0.075MG) PO SCH (05:50)
[2020-07-10] MEDS: LEVOTHYROXINE 100MCG TABLET (0.1MG) PO SCH (05:52)
[2020-07-10 06:00] VITALS: BP 107/51
[2020-07-10] MEDS: ENOXAPARIN 40MG/0.4ML SYRINGE (J1650 PER 10MG) SC SCH (08:24)
[2020-07-10] MEDS: PANTOPRAZOLE 40MG TAB (PROTONIX) PO SCH (08:24)
[2020-07-10] MEDS: ASPIRIN 81 MG ENTERIC TAB PO SCH (08:24)
[2020-07-10] MEDS: TORSEMIDE 20 MG TAB PO SCH ×2 (08:24→16:33)
[2020-07-10] MEDS: NYSTATIN 100,000 UNITS/GM TOPICAL PWD 15 GM TOP SCH ×2 (08:25→20:20)
[2020-07-10] MEDS: NYSTATIN CREAM 15 GM TOP SCH (08:25)
[2020-07-10] MEDS: DIMETHICONE 2% OINTMENT(VANICREAM) 70GM TUBE TOP SCH ×3 (08:26→20:21)
[2020-07-10] MEDS: atenoloL 50 MG TAB PO SCH (08:28)
[2020-07-10] MEDS: ACETAMINOPHEN TAB 650MG DOSE (2X325MG) PO PRN (08:34)
[2020-07-10] MEDS: MOM 30ML SUSPENSION UDC PO PRN (08:45)
--- NOTE | 2020-07-10 08:59 | NOCOX ---
DATE: 06/29/2020 Nocturnal oximetry was performed on bilevel noninvasive therapy at 20/7 with variable oxygen bleed-in ranging from 4-8 liters. The total recording time was 7 hours and 32 minutes with valid sampling of 7 hours and 29 minutes. Heart rate had significant variability with heart rate ranging from 83-142, oxygen saturations ranging from 75% to 99%. The total time with an oxygen saturation less than 88% was 1 hour and 10 minutes. The longest continuous time with an oxygen saturation less than 89% was 23 minutes and 16 seconds. There was significant variability of both oxygen saturation and heart rate with baseline irregularity. IMPRESSION: Significant hypoxia despite bilevel oxygen therapy and 8 liters of oxygen. Clinical correlation is warranted. MTDD
[2020-07-10 09:00] VITALS: O2SAT 93
[2020-07-10 12:46] LABS: HEMATOCRIT 40.3 % (36.0-47.0); HEMOGLOBIN 11.3 g/dl (12.0-15.5); MEAN CORPUSCULAR HEMOGLOBIN 30.3 pg (27.0-33.0); PLATELET COUNT, AUTOMATED 171 10^3/uL (150-450); RED BLOOD COUNT 3.73 10^6/uL (4.00-5.40); WHITE BLOOD COUNT 4.7 10^3/uL (4.0-10.0)
[2020-07-10 13:36] LABS: BLOOD UREA NITROGEN 11 MG/DL (7-18); CALCIUM LEVEL 8.8 MG/DL (8.8-10.2); CARBON DIOXIDE LEVEL 59 MEQ/L (21-32); CHLORIDE LEVEL 81 MEQ/L (98-107); CREATININE FOR GFR 0.51 MG/DL (0.55-1.30); GLOMERULAR FILTRATION RATE > 60.0 (>39); GLUCOSE, FASTING 101 MG/DL (70-100); POTASSIUM SERUM 3.2 MEQ/L (3.5-5.1); SODIUM LEVEL 138 MEQ/L (136-145)
[2020-07-10] MEDS ORDERED: POTASSIUM CHLORIDE 10 MEQ SR TABLET PO ONE (14:15)
[2020-07-10] MEDS: RAMELTEON 8 MG TAB (ROZEREM) PO PRN (22:59)
[2020-07-10] MEDS: ACETAMINOPH W/CODEINE #3 TAB UD PO PRN (23:00)
[2020-07-11] MEDS: ACETAMINOPHEN TAB 650MG DOSE (2X325MG) PO PRN (04:31)
[2020-07-11] MEDS: LEVOTHYROXINE 75MCG TABLET (0.075MG) PO SCH (05:55)
[2020-07-11] MEDS: LEVOTHYROXINE 100MCG TABLET (0.1MG) PO SCH (05:55)
[2020-07-11 06:00] VITALS: BP 128/64
[2020-07-11] MEDS ORDERED: POTASSIUM CHLORIDE 10 MEQ SR TABLET PO SCH (09:00)
[2020-07-11] MEDS: ASPIRIN 81 MG ENTERIC TAB PO SCH (09:29)
[2020-07-11] MEDS: TORSEMIDE 20 MG TAB PO SCH (09:29)
[2020-07-11] MEDS: PANTOPRAZOLE 40MG TAB (PROTONIX) PO SCH (09:29)
[2020-07-11] MEDS: ENOXAPARIN 40MG/0.4ML SYRINGE (J1650 PER 10MG) SC SCH (09:29)
[2020-07-11 09:30] VITALS: BP 111/60
[2020-07-11] MEDS: NYSTATIN CREAM 15 GM TOP SCH (09:30)
[2020-07-11] MEDS: atenoloL 50 MG TAB PO SCH (09:30)
[2020-07-11] MEDS: DIMETHICONE 2% OINTMENT(VANICREAM) 70GM TUBE TOP SCH (09:31)
[2020-07-11] MEDS: NYSTATIN 100,000 UNITS/GM TOPICAL PWD 15 GM TOP SCH (09:31)
[2020-07-11] MEDS ORDERED: MUPI2OI TOP (10:56)
[2020-07-11] MEDS ORDERED: ACET1TAB55 PO (10:56)
[2020-07-11] MEDS ORDERED: RAME8TAB2 PO (10:56)
[2020-07-11] MEDS ORDERED: [UNRECOGNIZED DRUG - CODE] TOP (10:56)
[2020-07-11] MEDS ORDERED: TORS20TA2 PO (10:56)
[2020-07-11] MEDS ORDERED: ATEN50TA2 PO (10:56)
[2020-07-11] MEDS ORDERED: ASPI81TAEC PO (10:56)
[2020-07-11] MEDS ORDERED: KLOR10TA76 PO (10:56)
--- NOTE | 2020-07-11 12:18 | DS.PDOC ---
Discharge Summary General Date of Admission Jun 24, 2020 at 23:34 Date of Discharge 07/11/20 Discharge Summary PROCEDURES PERFORMED DURING STAY: [None]. ADMITTING DIAGNOSES: acute on chronic hypoxic and hypercapnic respiratory failure acute on chronic diastolic CHF chronic afib with rvr acute metabolic encephalopathy episodic delirium 2/2 hypercarbia WAN/obesity hypoventilation/restrictive lung disease severe pulmonary hypertension with cor pulmonale hyponatremia chronic hypertension hypothyroidism debility/unsteady gait super morbid obesity BMI 75.8 chronic bilateral venous stasis with stasis dermatitis hx of recurrent UITS with ESBL E coli pyoderma gangrenosum on immunosuppressive therapy GERD Intermittent functional diarrhea history of renal stone removal w/ stent placement 07/2016, ureteral stent remove 09/2016 DISCHARGE DIAGNOSES: acute on chronic hypoxic and hypercapnic respiratory failure acute on chronic diastolic CHF chronic afib with rvr acute metabolic encephalopathy episodic delirium 2/2 hypercarbia WAN/obesity hypoventilation/restrictive lung disease severe pulmonary hypertension with cor pulmonale hyponatremia chronic hypertension hypothyroidism debility/unsteady gait super morbid obesity BMI 75.8 chronic bilateral venous stasis with stasis dermatitis hx of recurrent UITS with ESBL E coli pyoderma gangrenosum on immunosuppressive therapy GERD Intermittent functional diarrhea history of renal stone removal w/ stent placement 07/2016, ureteral stent remove 09/2016 COMPLICATIONS/CHIEF COMPLAINT: Acute Diastolic Congestive Heart Failure. HISTORY OF PRESENT ILLNESS: his 75-year-old female presented with complaints of shortness of breath that began on , she came in to the hospital because she began to "panic" feel dizzy, feeling lethargic, and her hands were shaking. She denied having chest pain or changes in her chronic bilateral lower extremity swelling. She denied eating out, eating more salt than usual, or drinking more fluid than usual. She admitted to not using her CPAP regularly. HOSPITAL COURSE: Ms. Sales is a 75 old with a history of chronic diastolic CHF, chronic O2 dependent respiratory failure, HTN, atrial fibrillation, hypothyroidism, pyoderma gangrenosum, and chronic lower extremity venous stasis, & morbid obesity presented with complaints of gradually worsening dyspnea, dizziness, lethargy, and shaking of her hands, which is likely due to combination of decompensated diastolic CHF and acute hypercapnia. Acute on Chronic hypoxic and Hypercapnic Respiratory Failure due to CHF exacerbation, Noncompliance with BIPAP. Aggressive diuresis worsened the Bicarb and pCO2, The ABGs were reviewed they showed Respiratory acidosis with secondary metabolic alkalosis Worsening CO2 likely 2/2 due to diuresis and chronic resp failure due to WAN and Obesity hypoventilation not corrected by her home settings of BIPAP BIPAP adjusted by Dr. Fitzgerald on 06/29 to ABG back to baseline again. cont diuresis. Acute on Chronic Diastolic CHF ABG back to baseline daily weights/restrict fluids to 2L and salt to 2g will restart diuresis. Echo: 1. Study is of markedly limited technical quality corresponding to body habitus. Uncertain underlying rhythm, most likely atrial fibrillation. 2. Normal left ventricle (LV) size with moderate left ventricular hypertrophy and overall probably normal systolic function. 3. Dilated hypokinetic right ventricle. 4. No hemodynamically significant valvular disease. 5. Very high central venous pressure and at least moderate pulmonary hypertension Chronic Atrial fibrillation with rvr atenolol.--> increase to 75mg po daily Refused anticoagulation given h/o GI Bleed On ASA Acute Metabolic encephalopathy was confused and lethargic on admission due to hypercarbia worse than baseline. Now better Episodic delirium 2/2 hypercarbia WAN/Obesity hypoventilation/restrictive lung disease continue with BIPAP The patient declined bariatric bed. A1c was 5.3 Severe Pulmonary hypertension with Corpulmonale BIPAP and Lasix. Hyponatremia Likely 2/2 fluid overload resolved Chronic hypertension Atenolol Hypothyroidism Levothyroxine Debility / Unsteady Gait At her baseline she uses a walker, stand to pivot only. Has a lift chair cont PT/OT Super Morbid obesity BMI of 75.8 complicates care Chronic bilateral venous stasis with stasis dermatitis Bilateral stasis rubor with lymphedema diuresis History of recurrent urinary tract infections (UTIs) with extended spectrum beta-lactamase (ESBL) Escherichia (E) coli, Pyoderma gangrenosum on immunosuppressive therapy on tracrolimus oint GERD History of perforated gastric ulcer PPI Intermittent Functional diarrhea loperamide prn H/o KIDNEY STONE REMOVED W/STENT PLACEMENT 08/10/16, URETERAL STENT REMOVAL 10/02/2016 Dispo : to Rehab. Not progressing well with PT. DISCHARGE MEDICATIONS: Please see below. ALLERGIES: Please see below. PHYSICAL EXAMINATION ON DISCHARGE: VITAL SIGNS: Please see below. GENERAL: comfortable in bed, morbidly obese HEENT: moist mucous membranes NECK: supple, normal ROM, no lymphadenopathy CARDIOVASCULAR EXAMINATION: RRR, normal S1, S2 RESPIRATORY EXAMINATION: distant breath sounds, no wheeze, no rhonchi ABDOMINAL EXAMINATION: non tender, non distended EXTREMITIES: 1+ edema on bilateral lower extremities, chronic venous stasis skin changes, lymphedema LABORATORY DATA: Please see below. IMAGING: CXR 06/24/20: FINDINGS: Lungs: There is subtle opacification in the retrocardiac region which may represent infiltrates. Pleural space: Small right pleural effusion with extension into the minor fissure. Heart/Mediastinum: Cardiomegaly. Bones/joints: Degenerative changes of the spine. Metallic hardware in the right humerus. IMPRESSION: Small right pleural effusion with extension into the minor fissure. Cardiomegaly. Retrocardiac patchy opacification which may represent infiltrates. Cardiomegaly. CT angiography (06/27/20): FINDINGS: Limitations: Mild motion. Streak artifact related to body habitus. Pulmonary arteries: No definite pulmonary embolus is identified. Aorta: The thoracic aorta is nonaneurysmal. Lungs: The right lower lobe is entirely collapsed. There is also dependent atelectasis involving the right upper and middle and left upper and lower lobes. There could be mild airspace consolidation in the lingula. Pleural space: There are moderate right and very small left pleural effusions. No pneumothorax is identified. Heart: Unremarkable. No cardiomegaly. No pericardial effusion. Lymph nodes: Unremarkable. No enlarged lymph nodes. Bones/joints: Degenerative changes again involve the spine and shoulders. Hardware is again partially included in the right humerus. Soft tissues: Unremarkable. IMPRESSION: 1. Exam limited as above. 2. No definite pulmonary embolus identified. 3. Moderate right and very small left pleural effusions. 4. Collapse of the right lower lobe, potentially related to the effusion, but recommend follow-up to exclude obstructing pathology. 5. Dependent atelectasis elsewhere with potential mild airspace consolidation in the lingula. PROGNOSIS: fair ACTIVITY: [As tolerated]. DIET: 2g Na DISCHARGE PLAN: [place] to [facility]. Follow up with PCP, pulmonology and cardiology. DISCHARGE INSTRUCTIONS: 1. follow up with PCP 3-5 days 2. follow up with pulmonology 2 weeks 3. follow with cardiology within 2 weeks 4. please take medications as prescribed 5. if you developed worsening shortness of breath, chest pain, nausea, vomiting, diarrhea or other quinn worsening of your symptoms, please call 911 or return to the nearest emergency room ITEMS TO FOLLOWUP ON ON OUTPATIENT: specialist follow up DISCHARGE CONDITION: [Stable]. TIME SPENT ON DISCHARGE: Greater than 30 minutes. Vital Signs/I&Os Vital Signs Date Time Temp Pulse Resp B/P (MAP) Pulse Ox O2 Delivery O2 Flow Rate FiO2 07/11/20 09:30 4.0 07/11/20 09:30 105 111/60 07/11/20 06:00 98.8 20 91 NIPPV (BIPAP/CPAP) I&O- Last 24 Hours up to 6 AM 07/11/20 06:00 Intake Total 780 ml Output Total 1200 ml Balance -420 ml Laboratory Data Labs 24H Laboratory Tests 2 07/10/20 12:30: Nucleated Red Blood Cells % (auto) 0.0, Anion Gap , Glomerular Filtration Rate > 60.0, Calcium Level 8.8 CBC/BMP Laboratory Tests 07/10/20 12:30 Discharge Medications Scheduled Apixaban (Eliquis) 5 Mg Tablet, 5 MG PO BID, (Reported) Atenolol (Atenolol) 50 Mg Tablet, 75 MG PO DAILY, (Reported) HOLD IF SBP<100 Dimethicone (Proshield Plus) 113 Gm Oint...g., 1 DOSE EXT TID, (Reported) APPLIES TO FEET MORNING, EVENING AND NIGHT Ergocalciferol (Vitamin D2) (Vitamin D2) 50,000 Units Cap, 50,000 UNITS PO QWEEK, (Reported) SATURDAYS Levothyroxine Sodium (Synthroid) 175 Mcg Tablet, 175 MCG PO DAILY, (Reported) PT TAKES BRAND NAME SYNTHROID Lutein/Zeaxanthin (Lutein-Zeaxanthin 20-1 mg Sfgl) 1 Each Capsule, 1 CAP PO DAILY, (Reported) Nystatin (Nystatin Powder) 15 Gm Powder, 1 DOSE TOP BID, (Reported) APPLY TO CREASES ON LEGS AND UNDER BREASTS Nystatin (Nystatin) 15 Gm Cream..g., 1 DOSE TOP DAILY, (Reported) USES ON LEGS Pantoprazole Sodium (Pantoprazole Sodium) 40 Mg Tablet.dr, 40 MG PO DAILY, (Reported) Potassium Chloride (Potassium Chloride) 20 Meq Tab.er.prt, 20 MEQ PO TID, (Reported) Sennosides/Docusate Sodium (Senna-S Tablet) 1 Each Tablet, 1 TAB PO DAILY, (Reported) Simethicone (Simethicone) 80 Mg Tab.chew, 80 MG PO BID, (Reported) 1000, 1900 Tacrolimus (Protopic) 0.1 % Oin, 1 DOSE EXT Q2D, (Reported) USES ON LEGS AT NIGHT Torsemide (Torsemide) 20 Mg Tablet, 20 MG PO BID, (Reported) 0800, 1400 Scheduled PRN Acetaminophen (Tylenol) 325 Mg Tablet, 650 MG PO Q4H PRN for PAIN / FEVER, (Reported) Acetaminophen with Codeine (Acetaminophen-Cod #3 Tablet) 1 Each Tab, 1 TAB PO DAILY PRN for PAIN, (Reported) Albuterol Sulfate (Ventolin Hfa) 108 Mcg/Act Aer, 2 PUFFS INH Q4H PRN for SHORTNESS OF BREATH, (Reported) Bisacodyl (Dulcolax) 10 Mg Supp.rect, 10 MG [place] DAILY PRN for CONSTIPATION, (Reported) Milk Of Magnesia (Milk of Magnesia) 2,400 Mg/10 Ml Oral.susp, 10 ML PO DAILY PRN for CONSTIPATION, (Reported) Ondansetron HCl (Zofran) 4 Mg Tablet, 4 MG PO Q8H PRN for NAUSEA, (Reported) Ramelteon (Rozerem) 8 Mg Tablet, 8 MG PO QHS PRN for INSOMNIA, (Reported) Sodium Phosphate,[place]-Dibasic (Fleet Enema) 133 Ml Enema, 1 BLU [place] DAILY PRN for CONSTIPATION, (Reported) Allergies Coded Allergies: Penicillins (Verified Allergy, Intermediate, localized reaction at injection site, 06/24/20) TAPE (Verified Allergy, Intermediate, PLASTIC TAPE - RASH, 06/24/20) bee venom protein (honey bee) (Verified Allergy, Intermediate, localized swelling at site, 06/24/20) sulfamethoxazole (Verified Allergy, Unknown, 06/24/20) STACEY MUELLER MD Jul 11, 2020 12:18
== END 2020-07-11 12:17 | DRG 291 ==
LOC: M ED 19:38 → M ED INP 23:34 → ENRESERVDT 23:53 → ENRESERVTM 23:53 → M PCU 06-25 01:35 → M MSPAV 07-03 17:10
PROVIDERS: ADMIT Internal Medicine; ATTEND Family Medicine
DX: I11.0 Hypertensive heart disease with heart failure (principal); J96.22 Acute and chronic respiratory failure with hypercapnia; J96.21 Acute and chronic respiratory failure with hypoxia; G93.41 Metabolic encephalopathy; I48.20 Chronic atrial fibrillation, unspecified; E66.2 Morbid (severe) obesity with alveolar hypoventilation; E87.1 Hypo-osmolality and hyponatremia; J98.11 Atelectasis; Z68.45 Body mass index [BMI] 70 or greater, adult; L88 Pyoderma gangrenosum; Z79.82 Long term (current) use of aspirin; Z79.899 Other long term (current) drug therapy; Z88.0 Allergy status to penicillin; Z88.8 Allergy status to other drugs, medicaments and biological substances; Z91.030 Bee allergy status; Z99.81 Dependence on supplemental oxygen; G47.33 Obstructive sleep apnea (adult) (pediatric); Z91.19 Patient's noncompliance with other medical treatment and regimen; Z79.01 Long term (current) use of anticoagulants; E03.9 Hypothyroidism, unspecified; I50.33 Acute on chronic diastolic (congestive) heart failure; Z96.653 Presence of artificial knee joint, bilateral; I27.20 Pulmonary hypertension, unspecified; I27.81 Cor pulmonale (chronic); K21.9 Gastro-esophageal reflux disease without esophagitis; E87.6 Hypokalemia; R19.7 Diarrhea, unspecified

== ENCOUNTER → 2020-07-12 | Outpatient (REF) ==
[~2020-07-12] MED LIST changes: +ACET-907 PO; +ACET1TAB55 PO; +DULC10SU2 PR; +FLEEENE12 PR; +KLOR10TA76 PO; +MOM30SS PO; +MUPI2OI TOP; +NEXI40CA PO; +PANT40TA29 PO; +POTA20TA6 PO; +RAME8TAB2 PO; +ROZE8TAB16 PO; +SENN-23 PO; +SIME80TA PO; +ZOFR4TAB16 PO; +[UNRECOGNIZED DRUG - CODE] EXT; +[UNRECOGNIZED DRUG - CODE] TOP
[2020-07-12 10:59] LABS: BLOOD UREA NITROGEN 11 MG/DL (7-18); CALCIUM LEVEL 9.1 MG/DL (8.8-10.2); CARBON DIOXIDE LEVEL 51 MEQ/L (21-32); CHLORIDE LEVEL 82 MEQ/L (98-107); CREATININE FOR GFR 0.52 MG/DL (0.55-1.30); GLOMERULAR FILTRATION RATE > 60.0 (>39); GLUCOSE, FASTING 111 MG/DL (70-100); NT-PRO BNP 3059 PG/ML (<125); POTASSIUM SERUM 3.5 MEQ/L (3.5-5.1); SODIUM LEVEL 136 MEQ/L (136-145)
== END ==
LOC: SKLAB5 07:33
DX: I50.9 Heart failure, unspecified (principal); D64.9 Anemia, unspecified

== ENCOUNTER → 2020-07-14 | Outpatient (REF) ==
[2020-07-14 12:26] LABS: BLOOD UREA NITROGEN 13 MG/DL (7-18); CALCIUM LEVEL 8.9 MG/DL (8.8-10.2); CHLORIDE LEVEL 84 MEQ/L (98-107); CREATININE FOR GFR 0.63 MG/DL (0.55-1.30); GLOMERULAR FILTRATION RATE > 60.0 (>39); GLUCOSE, FASTING 109 MG/DL (70-100); POTASSIUM SERUM 3.8 MEQ/L (3.5-5.1); SODIUM LEVEL 137 MEQ/L (136-145)
[2020-07-14 12:27] LABS: CARBON DIOXIDE LEVEL 54 MEQ/L (21-32)
== END ==
LOC: SKLAB5 10:21
DX: R63.8 Other symptoms and signs concerning food and fluid intake (principal)

== ENCOUNTER 2020-07-17 19:54 | Inpatient (IN) | payer MEDICARE, OTHER ==
[~2020-07-17] VITALS: Ht 162.6 cm; Wt 171.5 kg
[~2020-07-17 19:54] MED LIST changes: -ACET-907 PO; -DULC10SU2 PR; -FLEEENE12 PR; -MOM30SS PO; -PANT40TA29 PO; -POTA20TA6 PO; -ROZE8TAB16 PO; -SENN-23 PO; -SIME80TA PO; -ZOFR4TAB16 PO; -[UNRECOGNIZED DRUG - CODE] EXT
[2020-07-17 21:32] LABS: BASO % 0.4 % (0.0-1.0); EOS % 0.3 % (0.0-3.0); HEMATOCRIT 42.7 % (36.0-47.0); HEMOGLOBIN 11.6 g/dl (12.0-15.5); LYMPH # 0.8 10^3/uL (1.5-5.0); LYMPH % 10.3 % (24.0-44.0); MEAN CORPUSCULAR HEMOGLOBIN 29.7 pg (27.0-33.0); MEAN CORPUSCULAR HGB CONC 27.2 g/dl (32.0-36.5); MEAN CORPUSCULAR VOLUME 109.5 fl (80.0-96.0); MONO % 13.7 % (0.0-5.0); NEUTROPHILS # 5.6 10^3/uL (1.5-8.5); NEUTROPHILS % 74.6 % (36.0-66.0); PLATELET COUNT, AUTOMATED 198 10^3/uL (150-450); WHITE BLOOD COUNT 7.5 10^3/uL (4.0-10.0)
[2020-07-17 22:10] LABS: BLOOD UREA NITROGEN 20 MG/DL (7-18); CALCIUM LEVEL 9.1 MG/DL (8.8-10.2); CARBON DIOXIDE LEVEL 48 MEQ/L (21-32); CHLORIDE LEVEL 88 MEQ/L (98-107); CREATININE FOR GFR 0.78 MG/DL (0.55-1.30); GLOMERULAR FILTRATION RATE > 60.0 (>39); GLUCOSE, FASTING 109 MG/DL (70-100); POTASSIUM SERUM 4.9 MEQ/L (3.5-5.1); SODIUM LEVEL 136 MEQ/L (136-145)
--- NOTE | 2020-07-17 23:03 | REPVR ---
PROCEDURE INFORMATION: Exam: CT Chest Without Contrast Exam date and time: 07/17/2020 10:15 PM Age: 75 years old Clinical indication: Shortness of breath; Additional info: Increased SOB, resp failure TECHNIQUE: Imaging protocol: Computed tomography of the chest without contrast. 3D rendering (Not supervised by radiologist): MIP and/or 3D reconstructed images were created by the technologist. Radiation optimization: All CT scans at this facility use at least one of these dose optimization techniques: automated exposure control; mA and/or kV adjustment per patient size (includes targeted exams where dose is matched to clinical indication); or iterative reconstruction. COMPARISON: CT ANGIO CHEST 06/27/2020 12:11 PM FINDINGS: Tubes, catheters and devices: There is a screw and plate device right proximal humerus. Lungs: There is moderate consolidation of lung at the right lung base consistent with atelectasis and pneumonic infiltrate. Pleural space: There is a moderate right pleural effusion. The there is a small left pleural effusion. Heart: There is moderate cardiomegaly and also a moderate pericardial effusion. Pericardial effusion has developed since 06/27/2020 exam. Aorta: The aorta appears normal in size. There is some calcification along the margin of the aorta consistent with atherosclerotic changes. Lymph nodes: Unremarkable. No enlarged lymph nodes. Gallbladder and bile ducts: There is severe distension of the gallbladder consistent with hydrops of the gallbladder. There is also a small amount of fluid along the margin of the gallbladder and this all may be the result changes of cholecystitis and all new since 06/27/2020 exam.. There is also increased density at the neck of the gallbladder which may be sludge and gravel-like material. Bones/joints: There is anterior osteophyte formation of the thoracic spine along with moderate kyphosis. Soft tissues: Unremarkable. IMPRESSION: 1. There is moderate atelectasis and infiltrate of several segments right lower lobe with some increased since 06/27/2020 exam. 2. There is a moderate right pleural effusion similar to the previous exam. 3. New small left pleural effusion. 4. There is moderate cardiomegaly. 5. There is now a moderate pericardial effusion which is new since May. 6. Severe distension of the gallbladder 7.5 cm consistent with hydrops and new. Small amount of fluid along the margin of the gallbladder and this may be the result of cholecystitis. 7. Sludge and gravel-like material in the neck of the gallbladder Electronically signed by: Demarco Painting On 07/17/2020 23:03:08 PM
[2020-07-17 23:27] LABS: ALT/SGPT 16 U/L (12-78); BILIRUBIN,DIRECT 0.5 MG/DL (0.0-0.2); TOTAL PROTEIN 6.7 GM/DL (6.4-8.2)
[2020-07-18] VITALS (21 sets, daily range): BP systolic 99–123; BP diastolic 55–72; O2SAT 72–95
[2020-07-18] MEDS ORDERED: FUROSEMIDE 40MG/4ML VIAL (J1940) IV ONE
[2020-07-18] MEDS ORDERED: FLEEENE12 PR (00:08)
[2020-07-18] MEDS ORDERED: ACET-907 PO (00:08)
[2020-07-18] MEDS ORDERED: SENN-23 PO (00:08)
[2020-07-18] MEDS ORDERED: ATEN50TA2 PO (00:08)
[2020-07-18] MEDS ORDERED: POTA20TA6 PO (00:08)
[2020-07-18] MEDS ORDERED: MOM30SS PO (00:08)
[2020-07-18] MEDS ORDERED: SIME80TA PO (00:08)
[2020-07-18] MEDS ORDERED: [UNRECOGNIZED DRUG - CODE] EXT (00:08)
[2020-07-18] MEDS ORDERED: DULC10SU2 PR (00:08)
[2020-07-18] MEDS ORDERED: ROZE8TAB16 PO (00:08)
[2020-07-18] MEDS ORDERED: ZOFR4TAB16 PO (00:08)
[2020-07-18] MEDS ORDERED: TORS20TA2 PO (00:08)
[2020-07-18] MEDS ORDERED: PANT40TA29 PO (00:08)
[2020-07-18] MEDS ORDERED: ELIQ5TAB PO (00:08)
[2020-07-18] MEDS ORDERED: BISACODYL 10 MG SUPP PR PRN (00:45)
[2020-07-18] MEDS ORDERED: ONDANSETRON 4 MG TAB PO PRN (00:45)
[2020-07-18] MEDS ORDERED: FLEET ENEMA PR PRN (00:45)
[2020-07-18] MEDS ORDERED: ACETAMINOPH W/CODEINE #3 TAB UD PO PRN (00:45)
[2020-07-18] MEDS ORDERED: RAMELTEON 8 MG TAB (ROZEREM) PO PRN (00:45)
[2020-07-18] MEDS ORDERED: ALBUTEROL 90 MCG/ACT 8GM HFA INHALER INH PRN (00:45)
--- NOTE | 2020-07-18 00:45 | HPEPDOC ---
General Date of Admission 07/18/20 Date of Service: Jul 18, 2020 Chief Complaint The patient is a 75-year-old female admitted with a reason for visit of SOB. Source: EMS, longterm records Exam Limitations: Physical impairment Timing/Duration: 4-6 hours Severity: Moderate Associated Symptoms: Shortness of breath History of Present Illness Patient is 75 years old female with past medical history of chronic hypoxemic hypercapnic respiratory failure, COPD, obesity hypoventilation syndrome, patient on the BiPAP 24 hours/7 presented hospital with altered mental status. According to nursing staff patient developed altered mental status in half-way earlier today. Patient uses BiPAP and she was found to have tear on the facemask. In ER ABG showed pH 7.3, PCO2 107.9, oxygen 57. Patient was placed back on the BiPAP. Her mental status slightly improved. CT chest showed There is moderate atelectasis and infiltrate of several segments right lower lobe with some increased since 06/27/2020 exam. There is a moderate right pleural effusion similar to the previous exam. New small left pleural effusion. There is moderate cardiomegaly. There is now a moderate pericardial effusion which is new since May. Home Medications Scheduled Apixaban (Eliquis) 5 Mg Tablet, 5 MG PO BID, (Reported) Atenolol (Atenolol) 50 Mg Tablet, 75 MG PO DAILY, (Reported) HOLD IF SBP<100 Dimethicone (Proshield Plus) 113 Gm Oint...g., 1 DOSE EXT TID, (Reported) APPLIES TO FEET MORNING, EVENING AND NIGHT Ergocalciferol (Vitamin D2) (Vitamin D2) 50,000 Units Cap, 50,000 UNITS PO QWEEK, (Reported) SATURDAYS Levothyroxine Sodium (Synthroid) 175 Mcg Tablet, 175 MCG PO DAILY, (Reported) PT TAKES BRAND NAME SYNTHROID Lutein/Zeaxanthin (Lutein-Zeaxanthin 20-1 mg Sfgl) 1 Each Capsule, 1 CAP PO DAILY, (Reported) Nystatin (Nystatin Powder) 15 Gm Powder, 1 DOSE TOP BID, (Reported) APPLY TO CREASES ON LEGS AND UNDER BREASTS Nystatin (Nystatin) 15 Gm Cream..g., 1 DOSE TOP DAILY, (Reported) USES ON LEGS Pantoprazole Sodium (Pantoprazole Sodium) 40 Mg Tablet.dr, 40 MG PO DAILY, (Reported) Potassium Chloride (Potassium Chloride) 20 Meq Tab.er.prt, 20 MEQ PO TID, (Reported) Sennosides/Docusate Sodium (Senna-S Tablet) 1 Each Tablet, 1 TAB PO DAILY, (Reported) Simethicone (Simethicone) 80 Mg Tab.chew, 80 MG PO BID, (Reported) 1000, 1900 Tacrolimus (Protopic) 0.1 % Oin, 1 DOSE EXT Q2D, (Reported) USES ON LEGS AT NIGHT Torsemide (Torsemide) 20 Mg Tablet, 20 MG PO BID, (Reported) 0800, 1400 Scheduled PRN Acetaminophen (Tylenol) 325 Mg Tablet, 650 MG PO Q4H PRN for PAIN / FEVER, (Reported) Acetaminophen with Codeine (Acetaminophen-Cod #3 Tablet) 1 Each Tab, 1 TAB PO DAILY PRN for PAIN, (Reported) Albuterol Sulfate (Ventolin Hfa) 108 Mcg/Act Aer, 2 PUFFS INH Q4H PRN for SHORTNESS OF BREATH, (Reported) Bisacodyl (Dulcolax) 10 Mg Supp.rect, 10 MG WI DAILY PRN for CONSTIPATION, (Reported) Milk Of Magnesia (Milk of Magnesia) 2,400 Mg/10 Ml Oral.susp, 10 ML PO DAILY PRN for CONSTIPATION, (Reported) Ondansetron HCl (Zofran) 4 Mg Tablet, 4 MG PO Q8H PRN for NAUSEA, (Reported) Ramelteon (Rozerem) 8 Mg Tablet, 8 MG PO QHS PRN for INSOMNIA, (Reported) Sodium Phosphate,[place]-Dibasic (Fleet Enema) 133 Ml Enema, 1 BLU WI DAILY PRN for CONSTIPATION, (Reported) Allergies Coded Allergies: Penicillins (Verified Allergy, Intermediate, localized reaction at injection site, 06/24/20) TAPE (Verified Allergy, Intermediate, PLASTIC TAPE - RASH, 06/24/20) bee venom protein (honey bee) (Verified Allergy, Intermediate, localized swelling at site, 06/24/20) sulfamethoxazole (Verified Allergy, Unknown, 06/24/20) Past Medical History Medical History OHA/WAN not compliant w CPAP Chronic oxygen-dependent respiratory failure Chronic diastolic CHF Chronic hypertension Atrial fibrillation on Eliquis Hypothyroidism History of perforated gastric ulcer Pyoderma gangrenosum/chronic lower extremity venous stasis Morbid obesity Unsteady gait History of nephrolithiasis and temporary stent placement Back pain Surgical History History of sacral decubitus ulcer Bilateral knee replacement Total abdominal hysterectomy with bilateral salpingo-oophorectomy oophorectomy Lumpectomy Appendectomy Resection of skin cancer Family History Mother had dementia and nephrolithiasis Social History * Smoker: Denies Alcohol: Denies Drugs: denies A-FIB/CHADSVASC A-FIB History Current/History of A-Fib/PAF?: Yes Current PO Anticoag Therapy: Yes Review of Systems Constitutional: Reports: Other (unable to obtain patient is lethargic) Physical Examination General Exam: Positive: Other (lethargic) Eye Exam: Positive: PERRLA ENT Exam: Positive: Atraumatic Neck Exam: Positive: Supple, JVD Chest Exam: Positive: Diminished Heart Exam: Positive: Irregular Rhythm Telemetry: Positive: Atrial fibrillation Abdomen Exam: Positive: BS Hypoactive Extremity Exam: Positive: Clubbing; Negative: Cyanosis Skin Exam: Positive: Nl turgor and temperature Neuro Exam: Positive: Reflexes 2+ Psych Exam: Positive: Other (lethargic) Vital Signs Vital Signs Date Time Temp Pulse Resp B/P (MAP) Pulse Ox O2 Delivery O2 Flow Rate FiO2 07/17/20 23:55 99 90 07/17/20 22:26 NIPPV (BIPAP/CPAP) 6.0 07/17/20 21:45 115/66 (82) 07/17/20 20:05 16 07/17/20 20:02 96.5 Laboratory Data Labs 24H Laboratory Tests 2 07/17/20 20:19: POC pH (Misc Panel) 7.295L, POC Base Excess (Misc Panel) 26.0H, POC Saturated Percent O2 (Misc) 82L, POC pO2 (Misc Panel) 57.0L, POC pCO2 (Misc Panel) 107.9*H, POC HCO3 (Misc Panel) 52.5H, POC Total CO2 (Misc Panel) > 50.0H 07/17/20 21:20: Immature Granulocyte % (Auto) 0.7, Neutrophils (%) (Auto) 74.6H, Lymphocytes (%) (Auto) 10.3L, Monocytes (%) (Auto) 13.7H, Eosinophils (%) (Auto) 0.3, Basophils (%) (Auto) 0.4, Neutrophils # (Auto) 5.6, Lymphocytes # (Auto) 0.8L, Monocytes # (Auto) 1.0H, Eosinophils # (Auto) 0.0, Basophils # (Auto) 0.0, Nucleated Red Blood Cells % (auto) 0.0, Anion Gap 0L, Glomerular Filtration Rate > 60.0, Calcium Level 9.1, Total Bilirubin 1.0, Direct Bilirubin 0.5H, Aspartate Amino Transf (AST/SGOT) 23, Alanine Aminotransferase (ALT/SGPT) 16, Alkaline Phospha tase 67, Total Protein 6.7, Albumin 3.0L, Albumin/Globulin Ratio 0.8L 07/17/20 21:42: POC pH (Misc Panel) 7.300L, POC Base Excess (Misc Panel) 25.0H, POC Saturated Percent O2 (Misc) 88L, POC pO2 (Misc Panel) 65.0L, POC pCO2 (Misc Panel) 104.0*H, POC HCO3 (Misc Panel) 51.2H, POC Total CO2 (Misc Panel) > 50.0H 07/17/20 23:19: POC pH (Misc Panel) 7.303L, POC Base Excess (Misc Panel) 27.0H, POC Saturated Percent O2 (Misc) 91L, POC pO2 (Misc Panel) 74.0L, POC pCO2 (Misc Panel) 108.0*H, POC HCO3 (Misc Panel) 53.5H, POC Total CO2 (Misc Panel) > 50.0H 07/17/20 23:42: POC Lactate (Misc Panel) 1.10 CBC/BMP Laboratory Tests 07/17/20 21:20 Assessment/Plan Patient is 75 years old female with past medical history of chronic hypoxemic hypercapnic respiratory failure, COPD, obesity hypoventilation syndrome, patient on the BiPAP 24 hours/7 presented hospital with altered mental status. According to nursing staff patient developed altered mental status in half-way earlier today. Patient uses BiPAP and she was found to have tear on the facemask. In ER ABG showed pH 7.3, PCO2 107.9, oxygen 57. Patient was placed back on the BiPAP. Her mental status improved. CT chest showed There is moderate atelectasis and infiltrate of several segments right lower lobe with some increased since 06/27/2020 exam. There is a moderate right pleural effusion similar to the previous exam. New small left pleural effusion. There is moderate cardiomegaly. There is now a moderate pericardial effusion which is new since May. Problems (1) Acute on chronic respiratory failure with hypoxia and hypercapnia Status: Acute Problem Text: Most likely secondary to malfunctioning BiPAP facemask a half-way Patient has end-stage COPD Palliative care on board Continue to monitor ABG (2) Morbid obesity with BMI of 50.0-59.9, adult Status: Chronic Problem Text: Complicated care (3) Obesity hypoventilation syndrome Status: Acute Problem Text: Patient is on BiPAP 24/ (4) Pleural effusion, bilateral Status: Chronic Problem Text: Combined with pericardial effusion Most likely secondary to CHF exacerbation Patient afebrile, does not have leukocytosis, unlikely infectious etiology We'll intensify diuresis (5) Acute diastolic (congestive) heart failure Status: Acute Problem Text: I's and O's Lasix 40 mg every 4 hours Echo We'll check BNP Plan / VTE VTE Prophylaxis Ordered?: Yes LILLIAN TIAN DO Jul 18, 2020 00:45
[2020-07-18 01:38] LABS: NT-PRO BNP 6253 PG/ML (<125)
[2020-07-18] MEDS: APIXABAN 5 MG TAB (ELIQUIS) PO SCH ×3 (03:00→21:33)
[2020-07-18] MEDS: SIMETHICONE 80 MG CHEW TAB PO SCH ×4 (03:00→21:33)
[2020-07-18] MEDS: POTASSIUM CHLORIDE 10 MEQ SR TABLET PO SCH ×4 (03:00→21:33)
[2020-07-18] MEDS ORDERED: PILL CUTTER 1 EACH XX PRN (03:00)
[2020-07-18] MEDS: FUROSEMIDE 40MG/4ML VIAL (J1940) IV SCH ×4 (04:42→16:50)
[2020-07-18] MEDS ORDERED: HEPARIN SOD (PORCINE) 5000UNITS/ML 1ML VIAL/SYRINGE SC SCH (06:00)
[2020-07-18] MEDS: atenoloL 50 MG TAB PO SCH (08:44)
[2020-07-18] MEDS: SENOKOT S TAB PO SCH (08:44)
[2020-07-18] MEDS: PANTOPRAZOLE 40MG TAB (PROTONIX) PO SCH (08:45)
[2020-07-18] MEDS: NYSTATIN 100,000 UNITS/GM TOPICAL PWD 15 GM TOP SCH ×2 (08:47→21:33)
[2020-07-18] MEDS: NYSTATIN CREAM 15 GM TOP SCH (08:47)
[2020-07-18] MEDS ORDERED: TORSEMIDE 20 MG TAB PO SCH (09:00)
[2020-07-18] MEDS: ACETAMINOPHEN TAB 650MG DOSE (2X325MG) PO PRN (09:17)
--- NOTE | 2020-07-18 18:59 | IPNPDOC ---
Subjective Date Seen The patient was seen on 07/18/20. Subjective Chief Complaint/HPI Patient is a 75 year old female with OHS, COPD, and pulmonary hypertension here with metabolic encephalopathy 2/2 hypercapnic respiratory failure from malfunction bipap. She is supposed to be on BIPAP 21/04. This morning, she still had dyspnea. Denies chest pain, abdominal pain, diarrhea, or dysuria. Constitutional: Denies: Fever Pulmonary: Reports: Dyspnea Cardiovascular: Denies: Chest Pain Gastrointestinal: Denies: Abdominal Pain Genitourinary: Denies: Dysuria Objective Physical Examination General Exam: Positive: Other (lethargic) Eye Exam: Positive: PERRLA ENT Exam: Positive: Atraumatic Neck Exam: Positive: Supple, JVD Chest Exam: Positive: Diminished Heart Exam: Positive: Irregular Rhythm Telemetry: Positive: Atrial fibrillation Abdomen Exam: Positive: BS Hypoactive Extremity Exam: Positive: Clubbing; Negative: Cyanosis Skin Exam: Positive: Nl turgor and temperature Neuro Exam: Positive: Reflexes 2+ Psych Exam: Positive: Other (lethargic) Assessment /Plan Assessment Patient is a 75 year old female with OHS chronically on bipap 21/04 here with acute on chronic hypercapnic respiratory failure with CHF exacerbation. BNP elevated compared to baseline with new pericardial effusion. Aggressively diuresing at this time. Plan/VTE VTE Prophylaxis Ordered?: Yes Plan 1. Acute on chronic hypercapnic respiratory failure -Secondary to malfunctioning bipap -Chronically on bipap 21/04 2. Acute decompensated heart failure, diastolic -Elevated BNP from baseline with new pericardial effusion -Limited echocardiogram to evaluate pericardial effusion -Aggressive diuresis -Monitor electrolytes while diuresing 3. Bilateral pleural effusion -Moderate right pleural effusion similar to prior -New small left pleural effusion -Continue diuresis 4. New pericardial effusion -Limited echocardiogram -Aggressive diuresis 5. Obesity hypoventilation syndrome -Chronically on Bipap 6. Morbid obesity -BMI of 64.2 7. Atrial fibrillation -Stable -Continue atenolol and apixaban 8. DVT ppx -On apixaban VS, I&O, 24H, Fishbone Vital Signs/I&O Vital Signs Date Time Temp Pulse Resp B/P (MAP) Pulse Ox O2 Delivery O2 Flow Rate FiO2 07/18/20 15:43 85 07/18/20 15:42 96.8 88 22 99/55 (70) 07/18/20 12:00 8.0 07/18/20 04:00 NIPPV (BIPAP/CPAP) I&O- Last 24 Hours up to 6 AM 07/18/20 06:00 Intake Total 0 ml Output Total 1030 ml Balance -1030 ml Laboratory Data 24H LABS Laboratory Tests 2 07/17/20 20:19: POC pH (Misc Panel) 7.295L, POC Base Excess (Misc Panel) 26.0H, POC Saturated Percent O2 (Misc) 82L, POC pO2 (Misc Panel) 57.0L, POC pCO2 (Misc Panel) 107.9*H, POC HCO3 (Misc Panel) 52.5H, POC Total CO2 (Misc Panel) > 50.0H 07/17/20 21:20: Immature Granulocyte % (Auto) 0.7, Neutrophils (%) (Auto) 74.6H, Lymphocytes (%) (Auto) 10.3L, Monocytes (%) (Auto) 13.7H, Eosinophils (%) (Auto) 0.3, Basophils (%) (Auto) 0.4, Neutrophils # (Auto) 5.6, Lymphocytes # (Auto) 0.8L, Monocytes # (Auto) 1.0H, Eosinophils # (Auto) 0.0, Basophils # (Auto) 0.0, Nucleated Red Blood Cells % (auto) 0.0, Anion Gap 0L, Glomerular Filtration Rate > 60.0, Jeremy cium Level 9.1, Total Bilirubin 1.0, Direct Bilirubin 0.5H, Aspartate Amino Transf (AST/SGOT) 23, Alanine Aminotransferase (ALT/SGPT) 16, Alkaline Phosphatase 67, OR-[id number]-[id number]-Type Natriuretic Peptide 6253H, Total Protein 6.7, Albumin 3.0L, Albumin/Globulin Ratio 0.8L 07/17/20 21:42: POC pH (Misc Panel) 7.300L, POC Base Excess (Misc Panel) 25.0H, POC Saturated Percent O2 (Misc) 88L, POC pO2 (Misc Panel) 65.0L, POC pCO2 (Misc Panel) 104.0*H, POC HCO3 (Misc Panel) 51.2H, POC Total CO2 (Misc Panel) > 50.0H 07/17/20 23:19: POC pH (Misc Panel) 7.303L, POC Base Excess (Misc Panel) 27.0H, POC Saturated Percent O2 (Misc) 91L, POC pO2 (Misc Panel) 74.0L, POC pCO2 (Misc Panel) 108.0*H, POC HCO3 (Misc Panel) 53.5H, POC Total CO2 (Misc Panel) > 50.0H 07/17/20 23:42: POC Lactate (Misc Panel) 1.10 CBC/BMP Laboratory Tests 07/17/20 21:20 NOVA DOW DO Jul 18, 2020 18:59
[2020-07-18 20:09] LABS: BLOOD UREA NITROGEN 19 MG/DL (7-18); CALCIUM LEVEL 8.6 MG/DL (8.8-10.2); CARBON DIOXIDE LEVEL 52 MEQ/L (21-32); CHLORIDE LEVEL 87 MEQ/L (98-107); GLOMERULAR FILTRATION RATE > 60.0 (>39); GLUCOSE, FASTING 111 MG/DL (70-100); POTASSIUM SERUM 4.1 MEQ/L (3.5-5.1); SODIUM LEVEL 140 MEQ/L (136-145)
[2020-07-19] VITALS (48 sets, daily range): BP systolic 49–127; BP diastolic 26–95; O2SAT 85–95
[2020-07-19] MEDS: FUROSEMIDE 40MG/4ML VIAL (J1940) IV SCH ×3 (00:23→16:55)
[2020-07-19 05:25] LABS: HEMATOCRIT 36.2 % (36.0-47.0); HEMOGLOBIN 10.2 g/dl (12.0-15.5); MEAN CORPUSCULAR HEMOGLOBIN 29.9 pg (27.0-33.0); MEAN CORPUSCULAR HGB CONC 28.2 g/dl (32.0-36.5); MEAN CORPUSCULAR VOLUME 106.2 fl (80.0-96.0); PLATELET COUNT, AUTOMATED 174 10^3/uL (150-450); RED BLOOD COUNT 3.41 10^6/uL (4.00-5.40); WHITE BLOOD COUNT 7.8 10^3/uL (4.0-10.0)
[2020-07-19 06:42] LABS: BLOOD UREA NITROGEN 20 MG/DL (7-18); CALCIUM LEVEL 8.8 MG/DL (8.8-10.2); CARBON DIOXIDE LEVEL 50 MEQ/L (21-32); CHLORIDE LEVEL 87 MEQ/L (98-107); CREATININE FOR GFR 0.63 MG/DL (0.55-1.30); GLOMERULAR FILTRATION RATE > 60.0 (>39); GLUCOSE, FASTING 89 MG/DL (70-100); MAGNESIUM LEVEL 1.8 MG/DL (1.8-2.4); POTASSIUM SERUM 3.9 MEQ/L (3.5-5.1); SODIUM LEVEL 137 MEQ/L (136-145)
[2020-07-19] MEDS: PANTOPRAZOLE 40MG TAB (PROTONIX) PO SCH (09:17)
[2020-07-19] MEDS: SIMETHICONE 80 MG CHEW TAB PO SCH ×3 (09:17→20:42)
[2020-07-19] MEDS: POTASSIUM CHLORIDE 10 MEQ SR TABLET PO SCH ×4 (09:18→20:42)
[2020-07-19] MEDS: NYSTATIN 100,000 UNITS/GM TOPICAL PWD 15 GM TOP SCH ×2 (09:19→20:28)
[2020-07-19] MEDS: APIXABAN 5 MG TAB (ELIQUIS) PO SCH ×3 (09:19→20:42)
[2020-07-19] MEDS: NYSTATIN CREAM 15 GM TOP SCH (09:19)
[2020-07-19] MEDS: SENOKOT S TAB PO SCH (09:19)
[2020-07-19] MEDS: atenoloL 50 MG TAB PO SCH (09:19)
[2020-07-19 15:18] LABS: BLOOD UREA NITROGEN 19 MG/DL (7-18); CALCIUM LEVEL 8.8 MG/DL (8.8-10.2); CARBON DIOXIDE LEVEL 52 MEQ/L (21-32); CHLORIDE LEVEL 86 MEQ/L (98-107); CREATININE FOR GFR 0.56 MG/DL (0.55-1.30); GLOMERULAR FILTRATION RATE > 60.0 (>39); GLUCOSE, FASTING 97 MG/DL (70-100); POTASSIUM SERUM 3.9 MEQ/L (3.5-5.1); SODIUM LEVEL 137 MEQ/L (136-145)
--- NOTE | 2020-07-19 15:24 | REPVR ---
PROCEDURE INFORMATION: Exam: US Abdomen, Limited; Right Upper Quadrant Exam date and time: 07/19/2020 2:41 PM Age: 75 years old Clinical indication: Abdominal pain; Acute; Additional info: CT demonstrates hydrops TECHNIQUE: Imaging protocol: US abdomen. Real time ultrasound with image documentation. Limited exam focused on the right upper quadrant. COMPARISON: GALLBLADDER US 02/10/2018 1:48 PM FINDINGS: Liver: Limited evaluation of the liver secondary to the patient's body habitus and questionable soft tissue edema/anasarca present. Gallbladder: The gallbladder is significantly distended with a markedly thickened 8.3 mm gallbladder wall present together with multiple gallstones and pericholecystic fluid, consistent with acute cholecystitis. Common bile duct: The common bile duct is normal in size measuring 3.8 mm. Pancreas: Limited evaluation of the pancreas secondary to overlying bowel gas. The head of the pancreas and proximal body of the pancreas appear normal. The tail is obscured by bowel gas. IMPRESSION: 1. The gallbladder is significantly distended with a markedly thickened 8.3 mm gallbladder wall present together with multiple gallstones and pericholecystic fluid, consistent with acute cholecystitis. 2. The common bile duct is normal in size measuring 3.8 mm. 3. Limited evaluation of the liver secondary to the patient's body habitus and questionable soft tissue edema/anasarca present. 4. The head of the pancreas and proximal body of the pancreas appear normal. Electronically signed by: Nasir Cali On 07/19/2020 15:25:07 PM
[2020-07-19] MEDS: ACETAMINOPHEN TAB 650MG DOSE (2X325MG) PO PRN ×2 (16:55→20:32)
[2020-07-19] MEDS ORDERED: PIPERACILLIN/TAZOBACTAM SOD 3.375 GM in D5W MINI-BAG PLUS 50 ML IV SCH (17:45)
[2020-07-19 17:52] LABS: ABG BASE EXCESS 20.5 (-2.0-2.0); ABG HCO3 48.6 MEQ/L (22.0-26.0); ABG O2 SATURATION 82.9 % (95.0-99.0); ABG PARTIAL PRESSURE CO2 70.5 mmHg (35.0-45.0); ABG PARTIAL PRESSURE O2 46.8 mmHg (75.0-100.0); ABG STANDARD HCO3 44.5 MEQ/L (22.0-26.0); ABG TOTAL CO2 50.7 MEQ/L (23.0-31.0); ABG pH (ARTERIAL) 7.456 UNITS (7.350-7.450)
[2020-07-19 18:47] LABS: BASO % 0.5 % (0.0-1.0); HEMATOCRIT 38.1 % (36.0-47.0); HEMOGLOBIN 10.9 g/dl (12.0-15.5); LYMPH # 0.1 10^3/uL (1.5-5.0); LYMPH % 4.1 % (24.0-44.0); MEAN CORPUSCULAR HEMOGLOBIN 30.2 pg (27.0-33.0); MEAN CORPUSCULAR HGB CONC 28.6 g/dl (32.0-36.5); MEAN CORPUSCULAR VOLUME 105.5 fl (80.0-96.0); MONO % 1.4 % (0.0-5.0); NEUTROPHILS % 92.6 % (36.0-66.0); PLATELET COUNT, AUTOMATED 151 10^3/uL (150-450); RED BLOOD COUNT 3.61 10^6/uL (4.00-5.40); WHITE BLOOD COUNT 2.2 10^3/uL (4.0-10.0)
[2020-07-19] MEDS ORDERED: NS 1,000 ML IV ONE (19:00)
[2020-07-19] MEDS ORDERED: NS 1,000 ML IV SCH (19:00)
[2020-07-19 19:03] LABS: ALBUMIN 2.9 GM/DL (3.2-5.2); ALT/SGPT 14 U/L (12-78); BILIRUBIN,TOTAL 2.1 MG/DL (0.2-1.0); BLOOD UREA NITROGEN 18 MG/DL (7-18); CALCIUM LEVEL 9.3 MG/DL (8.8-10.2); CHLORIDE LEVEL 84 MEQ/L (98-107); CREATININE FOR GFR 0.72 MG/DL (0.55-1.30); GLOMERULAR FILTRATION RATE > 60.0 (>39); GLUCOSE, FASTING 88 MG/DL (70-100); POTASSIUM SERUM 4.5 MEQ/L (3.5-5.1); SODIUM LEVEL 136 MEQ/L (136-145); TOTAL PROTEIN 7.1 GM/DL (6.4-8.2); TROPONIN I < 0.02 NG/ML (< 0.10)
[2020-07-19 19:04] LABS: CARBON DIOXIDE LEVEL 46 MEQ/L (21-32)
--- NOTE | 2020-07-19 19:45 | IPNPDOC ---
Subjective Date Seen The patient was seen on 07/19/20. Subjective Chief Complaint/HPI Patient is a 75 year old female with OHS, COPD, and pulmonary hypertension here with metabolic encephalopathy 2/2 hypercapnic respiratory failure from malfunction bipap. She is supposed to be on BIPAP 24/7. This morning, she was cognitively stronger. She was asking what happened and why she was back in the hospital. Reported dyspnea and lower abdominal pain. Otherwise, she was back on baseline oxygen bleed through (8L). She did well today and they washed her and turned her. Later in the evening, she woke up with chills and finger cyanosis. Repeat ABG demonstrated worsening hypoxia. Hypercapnia still present but improved. Lastic Acid was also elevated. Stopped diuretics, started cefapine and flagyl due to PCN allergy, and started IV fluids. Constitutional: Reports: Chills; Denies: Fever Pulmonary: Reports: Dyspnea Cardiovascular: Denies: Chest Pain Gastrointestinal: Reports: Abdominal Pain (lower abdominal pain) Genitourinary: Denies: Dysuria Objective Physical Examination General Exam: Positive: Alert, Cooperative Eye Exam: Positive: PERRLA ENT Exam: Positive: Atraumatic Neck Exam: Positive: Supple, JVD Chest Exam: Positive: Diminished Heart Exam: Positive: Tachycardic, Irregular Rhythm Telemetry: Positive: Atrial fibrillation Abdomen Exam: Positive: BS Hypoactive Extremity Exam: Positive: Clubbing, Cyanosis Skin Exam: Positive: Nl turgor and temperature Assessment /Plan Assessment Patient is a 75 year old female with OHS chronically on bipap 24/7 here with acute on chronic hypercapnic respiratory failure with CHF exacerbation. BNP elevated compared to baseline with new pericardial effusion. Aggressively diuresing during hospitalization She was weaned to baseline oxygen of 8L. Late afternoon, she started to have chills and cyanosis of the fingertips. Lactic acid was elevated. She also had worsening hypoxia. Increased oxygen to 15L. Held diuretics, started IV fluids, and antibiotics to cover for acute cholecystitis. Plan/VTE VTE Prophylaxis Ordered?: Yes Plan 1. Acute on chronic hypercapnic hypoxic respiratory failure -Secondary to malfunctioning bipap -Chronically on bipap 24/7 and 8L oxygen bleed through -Required 15L of oxygen today as ABG demonstrated pO2 of 46.8 2. Lactic acidosis -May be secondary to hypoperfusion vs hypoxia -IV fluids and IV antibiotics 3. Cholecystitis -No leukocytosis, but this afternoon developed leukopenia -T bili increased from 1 to 2.1 -Empirically on cefepime and flagyl due to PCN allergy -On IV fluids 4. Acute decompensated heart failure, diastolic -Elevated BNP from baseline with new pericardial effusion -Limited echocardiogram to evaluate pericardial effusion -Diuresis held due to lactic acidosis 5. Bilateral pleural effusion -Moderate right pleural effusion similar to prior -New small left pleural effusion -Diuresis held due to lactic acidosis 6. New pericardial effusion -Limited echocardiogram pending results 7. Obesity hypoventilation syndrome -Chronically on Bipap 8. Morbid obesity -BMI of 64.2 9. Atrial fibrillation -Continue atenolol and apixaban 10. DVT ppx -On apixaban VS, I&O, 24H, Fishbone Vital Signs/I&O Vital Signs Date Time Temp Pulse Resp B/P (MAP) Pulse Ox O2 Delivery O2 Flow Rate FiO2 07/19/20 19:21 98.1 131 22 127/94 (105) 90 NIPPV (BIPAP/CPAP) 10.0 I&O- Last 24 Hours up to 6 AM 07/19/20 06:00 Intake Total 1080 ml Output Total 1600 ml Balance -520 ml Laboratory Data 24H LABS Laboratory Tests 2 07/19/20 05:04: Nucleated Red Blood Cells % (auto) 0.0, Anion Gap 0L, Glomerular Filtration Rate > 60.0, Calcium Level 8.8, Magnesium Level 1.8 07/19/20 13:11: Bedside Glucose (Misc Panel) 97 07/19/20 13:24: Anion Gap , Glomerular Filtration Rate > 60.0, Calcium Level 8.8 07/19/20 17:09: Bedside Glucose (Misc Panel) 78L 07/19/20 17:40: Blood Gas Bicarbonate Standard 44.5H, Arterial Blood pH 7.456H, Arterial Blood Partial Pressure CO2 70.5*H, Arterial Blood Partial Pressure O2 46.8*L, Arterial Blood Total CO2 50.7H, Arterial Blood HCO3 48.6H, Arterial Blood Base Excess 20.5H, Arterial Blood Oxygen Saturation 82.9L 07/19/20 17:55: Lactic Acid Level 3.9*H 07/19/20 18:04: Anion Gap 6L, Glomerular Filtration Rate > 60.0, Calcium Level 9.3, Total Bilirubin 2.1#H, Aspartate Amino Transf (AST/SGOT) 23, Alanine Aminotransferase (ALT/SGPT) 14, Alkaline Phosphatase 106, Troponin I < 0.02, Total Protein 7.1, Albumin 2.9L, Albumin/Globulin Ratio 0.7L 07/19/20 18:29: Immature Granulocyte % (Auto) 1.4, Neutrophils (%) (Auto) 92.6H, Lymphocytes (%) (Auto) 4.1L, Monocytes (%) (Auto) 1.4, Eosinophils (%) (Auto) 0.0, Basophils (%) (Auto) 0.5, Neutrophils # (Auto) 2.0, Lymphocytes # (Auto) 0.1L, Monocytes # (Auto) 0.0, Eosinophils # (Auto) 0.0, Basophils # (Auto) 0.0, Nucleated Red Blood Cells % (auto) 1.4H CBC/BMP Laboratory Tests 07/19/20 05:04 07/19/20 13:24 07/19/20 18:04 07/19/20 18:29 NOVA DOW DO Jul 19, 2020 19:45
[2020-07-19] MEDS: CEFEPIME HCL 2 GM in D5W MINI-BAG PLUS 50 ML IV SCH (20:09)
[2020-07-19 20:38] LABS: ABG BASE EXCESS 17.5 (-2.0-2.0); ABG HCO3 44.4 MEQ/L (22.0-26.0); ABG PARTIAL PRESSURE CO2 65.2 mmHg (35.0-45.0); ABG PARTIAL PRESSURE O2 78.8 mmHg (75.0-100.0); ABG STANDARD HCO3 41.5 MEQ/L (22.0-26.0); ABG TOTAL CO2 46.4 MEQ/L (23.0-31.0); ABG pH (ARTERIAL) 7.451 UNITS (7.350-7.450)
[2020-07-19] MEDS: metroNIDAZOLE 500 MG in IV 1 EA IV SCH (20:50)
[2020-07-19] MEDS ORDERED: DEXTROSE 50% 50 ML SYRINGE IV PRN (21:00)
[2020-07-19] MEDS ORDERED: GLUCOSE 4GM CHEW TABLET PO PRN (21:00)
[2020-07-19] MEDS ORDERED: GLUCAGON INJ 1MG VIAL SC PRN (21:00)
[2020-07-19] MEDS ORDERED: ONDANSETRON 4MG/2ML VIAL IV PRN (21:00)
[2020-07-19] MEDS ORDERED: ACETAMINOPHEN *IV* 1,000 MG in IV 1 EA IV ONE (21:00)
[2020-07-19] MEDS ORDERED: diltiaZEM 125 MG in NS 100 ML IV SCH (22:00)
[2020-07-19] MEDS ORDERED: NOREPINEPHRINE 4 MG/4 ML AMP As Ordered ONE (23:10)
[2020-07-20] VITALS (70 sets, daily range): BP systolic 78–125; BP diastolic 33–69
[2020-07-20 00:08] LABS: ABG BASE EXCESS 17.6 (-2.0-2.0); ABG O2 SATURATION 96.5 % (95.0-99.0); ABG PARTIAL PRESSURE O2 82.1 mmHg (75.0-100.0); ABG STANDARD HCO3 41.6 MEQ/L (22.0-26.0); ABG TOTAL CO2 47.1 MEQ/L (23.0-31.0); ABG pH (ARTERIAL) 7.435 UNITS (7.350-7.450)
[2020-07-20 00:10] LABS: ABG PARTIAL PRESSURE CO2 68.5 mmHg (35.0-45.0)
[2020-07-20] MEDS: NOREPINEPHRINE BITARTRATE 8 MG in D5W 492 ML IV SCH ×3 (00:14→09:00)
[2020-07-20] MEDS: CEFEPIME HCL 2 GM in D5W MINI-BAG PLUS 50 ML IV SCH ×2 (03:11→11:05)
[2020-07-20] MEDS: metroNIDAZOLE 500 MG in IV 1 EA IV SCH ×2 (03:45→11:31)
[2020-07-20 04:45] LABS: HEMOGLOBIN 10.7 g/dl (12.0-15.5); MEAN CORPUSCULAR HEMOGLOBIN 30.1 pg (27.0-33.0); MEAN CORPUSCULAR HGB CONC 28.9 g/dl (32.0-36.5); MEAN CORPUSCULAR VOLUME 104.2 fl (80.0-96.0); PLATELET COUNT, AUTOMATED 172 10^3/uL (150-450); RED BLOOD COUNT 3.55 10^6/uL (4.00-5.40); WHITE BLOOD COUNT 19.2 10^3/uL (4.0-10.0)
[2020-07-20 05:42] LABS: ALBUMIN 2.4 GM/DL (3.2-5.2); BILIRUBIN,TOTAL 4.7 MG/DL (0.2-1.0); CALCIUM LEVEL 8.2 MG/DL (8.8-10.2); CREATININE FOR GFR 1.25 MG/DL (0.55-1.30); GLOMERULAR FILTRATION RATE 44.6 (>39); TOTAL PROTEIN 5.7 GM/DL (6.4-8.2)
[2020-07-20 05:48] LABS: ABG BASE EXCESS 16.1 (-2.0-2.0); ABG HCO3 43.9 MEQ/L (22.0-26.0); ABG O2 SATURATION 98.6 % (95.0-99.0); ABG PARTIAL PRESSURE O2 109.1 mmHg (75.0-100.0); ABG TOTAL CO2 46.1 MEQ/L (23.0-31.0); ABG pH (ARTERIAL) 7.409 UNITS (7.350-7.450)
--- NOTE | 2020-07-20 05:57 | IPNPDOC ---
Date Seen The patient was seen on 07/20/20. Progress Note OVERNIGHT CHANGE IN CLINICAL STATUS Patient evaluated at bedside for hypoxia, lethagy, and tachycardia. Patient appeared to be in Atrial fibrillation with RVR likely secondary to sepsis from possible cholecystitis per primary team. Patient developed leukopenia, fever, and elevated lactic acidosis. Patient was given gentle fluid hydration. She was transferred to ICU for Bi-level to achieve better FiO2 then on table top. Additionally, patient was started on a cardizem drip for rate control. Her rate started to come down however she did develop hypotension. She remained hypotensive and Pulmonary/Critical Care was consulted for central venous catheter placement. Patients Abdi Sales was contacted for status update as well as consent for CVC placement as the patient was intermittently confused. Patients had stated that she would want everything done with the exception of CPR and intubation. CVC was placed in the patients right jugular vein and levophed was started. VS, I&O, 24H, [facility] Vital Signs/I&O Vital Signs Date Time Temp Pulse Resp B/P (MAP) Pulse Ox O2 Delivery O2 Flow Rate FiO2 07/20/20 05:00 95 29 87/44 97 NIPPV (BIPAP/CPAP) 75 07/20/20 04:46 98.6 07/19/20 20:25 15.0 I&O- Last 24 Hours up to 6 AM 07/20/20 06:00 Intake Total 1145 ml Output Total 950 ml Balance 195 ml Laboratory Data 24H LABS Laboratory Tests 2 07/19/20 13:11: Bedside Glucose (Misc Panel) 97 07/19/20 13:24: Anion Gap , Glomerular Filtration Rate > 60.0, Calcium Level 8.8 07/19/20 17:09: Bedside Glucose (Misc Panel) 78L 07/19/20 17:40: Blood Gas Bicarbonate Standard 44.5H, Arterial Blood pH 7.456H, Arterial Blood Partial Pressure CO2 70.5*H, Arterial Blood Partial Pressure O2 46.8*L, Arterial Blood Total CO2 50.7H, Arterial Blood HCO3 48.6H, Arterial Blood Base Excess 20.5H, Arterial Blood Oxygen Saturation 82.9L 07/19/20 17:55: Lactic Acid Level 3.9*H 07/19/20 18:04: Anion Gap 6L, Glomerular Filtration Rate > 60.0, Calcium Level 9.3, Total Bilirubin 2.1#H, Aspartate Amino Transf (AST/SGOT) 23, Alanine Aminotransferase (ALT/SGPT) 14, Alkaline Phosphatase 106, Troponin I < 0.02, Total Protein 7.1, Albumin 2.9L, Albumin/Globulin Ratio 0.7L 07/19/20 18:29: Immature Granulocyte % (Auto) 1.4, Neutrophils (%) (Auto) 92.6H, Lymphocytes (%) (Auto) 4.1L, Monocytes (%) (Auto) 1.4, Eosinophils (%) (Auto) 0.0, Basophils (%) (Auto) 0.5, Neutrophils # (Auto) 2.0, Lymphocytes # (Auto) 0.1L, Monocytes # (Auto) 0.0, Eosinophils # (Auto) 0.0, Basophils # (Auto) 0.0, Nucleated Red Blood Cells % (auto) 1.4H 07/19/20 20:26: Blood Gas Bicarbonate Standard 41.5H, Arterial Blood pH 7.451H, Arterial Blood Partial Pressure CO2 65.2*H, Arterial Blood Partial Pressure O2 78.8, Arterial Blood Total CO2 46.4H, Arterial Blood HCO3 44.4H, Arterial Blood Base Excess 17.5H, Arterial Blood Oxygen Saturation 96.0 07/19/20 20:47: Urine Color YELLOW, Urine Appearance CLEAR, Urine pH 8.0, Urine Specific [place] 1.008, Urine Protein NEGATIVE, Urine Glucose (UA) NEGATIVE, Urine Ketones NEGATIVE, Urine Blood 1+H, Urine Nitrite NEGATIVE, Urine Bilirubin NEGATIVE, Urine Urobilinogen 4.0H, Urine Leukocyte Esterase 2+H, Urine WBC (Auto) 13H, Urine RBC (Auto) 2, Urine Hyaline Casts (Auto) 0, Urine Bacteria (Auto) 1+H, Urine Squamous Epithelial Cells 0, Urine Transitional Epithelial Cells <1, Urine Sperm (Auto) 07/19/20 21:52: Lactic Acid Followup at 4 Hours 4.1*H 07/19/20 23:42: Troponin I < 0.02 07/19/20 23:58: Blood Gas Bicarbonate Standard 41.6H, Arterial Blood pH 7.435, Arterial Blood Partial Pressure CO2 68.5*H, Arterial Blood Partial Pressure O2 82.1, Arterial Blood Total CO2 47.1H, Arterial Blood HCO3 45.0H, Arterial Blood Base Excess 17.6H, Arterial Blood Oxygen Saturation 96.5 07/20/20 00:43: Bedside Glucose (Misc Panel) 95 07/20/20 03:16: Lactic Acid Level 2.5*H 07/20/20 04:32: Nucleated Red Blood Cells % (auto) 0.3H CBC/BMP Laboratory Tests 07/19/20 13:24 07/19/20 18:04 07/19/20 18:29 07/20/20 04:32 Microbiology Microbiology 07/19/20 Blood Culture, Received Pending 07/19/20 Urine Culture, Received Pending SAMANTHA GARCÍA DO Jul 20, 2020 05:57
[2020-07-20] MEDS: HumaLOG INSULIN (NovoLOG) PER UNIT SC SCH ×3 (06:00→11:48)
[2020-07-20] MEDS ORDERED: LEVOTHYROXINE 75MCG TABLET (0.075MG) PO SCH (06:00)
[2020-07-20] MEDS ORDERED: LEVOTHYROXINE 88MCG TABLET (0.088 MG) PO SCH (06:00)
[2020-07-20] MEDS ORDERED: LEVOTHYROXINE 100MCG TABLET (0.1MG) PO SCH (06:00)
--- NOTE | 2020-07-20 07:32 | REP ---
INDICATION: CVC Placement COMPARISON: 06/24/2020 TECHNIQUE: Portable semi upright. FINDINGS: Examination is limited and relatively nondiagnostic due to positioning and technique/underpenetration. A right IJ line is identified with tip in the SVC. There is no evidence for right apical pneumothorax. IMPRESSION: Limited examination demonstrating right IJ line with tip in the SVC and no apical pneumothorax. <Electronically signed by Mihia Valadez > 07/20/20 0751
[2020-07-20] MEDS ORDERED: APIXABAN 5 MG TAB (ELIQUIS) PO SCH (09:00)
[2020-07-20] MEDS: SIMETHICONE 80 MG CHEW TAB PO SCH (09:00)
[2020-07-20] MEDS ORDERED: PANTOPRAZOLE 40MG VIAL (C9113 PER 1) IV SCH (09:00)
[2020-07-20] MEDS: POTASSIUM CHLORIDE 10 MEQ SR TABLET PO SCH (09:00)
--- NOTE | 2020-07-20 09:36 | RO ---
DATE OF OPERATION: 07/20/2020 PROCEDURE: Central line. INDICATION: Vasopressor administration. PREPROCEDURE DIAGNOSIS: Shock. POSTPROCEDURE DIAGNOSIS: Shock. ATTENDING PHYSICIAN: Dr. Arnold Consent was obtained from the patients and the patient herself verbally prior to the procedure. Indications, risks and benefits were explained at length. PROCEDURE SUMMARY: Central line insertion practices form was completed by an independent observer. Time out was performed. Full sterile technique was maintained throughout the procedure including surgical cap, mask, protective eyewear, full gown and sterile gloves. The patient was placed in Trendelenburg position. The right neck region was prepped using Chlorhexidine scrub and draped in sterile fashion using full drape and sterile probe cover employed. The right internal jugular vein was identified using ultrasound. Anesthesia was achieved to vein using 1% Lidocaine. Using realtime out of plane guidance the introducer needle was inserted into the internal jugular vein under direct ultrasound visualization. Venous blood was drawn. The syringe was removed and guidewire was advanced into the introducer needle. The introducer needle was removed over the guidewire. A small incision was made at the skin surface with a scalpel and a dilator was exchanged over the guidewire. After appropriate dilation was obtained the dilator was exchanged over the wire for a triple lumen central venous catheter. The wire was removed and the catheter was sutured in place at 19 cm. A sterile Chlorhexidine impregnated dressing was placed over the catheter at the insertion site. The patient tolerated the procedure without any hemodynamic compromise. At time of procedure completion all ports aspirated and flushed properly. Postprocedure chest x-ray is pending. Estimated blood loss is less than 2 mL. MTDD
[2020-07-20] MEDS: SENOKOT S TAB PO SCH (09:39)
[2020-07-20] MEDS ORDERED: VASOPRESSIN INJ 20 UNITS in NS 499 ML IV SCH (11:00)
[2020-07-20] MEDS: NYSTATIN 100,000 UNITS/GM TOPICAL PWD 15 GM TOP SCH (11:06)
[2020-07-20] MEDS: NYSTATIN CREAM 15 GM TOP SCH (11:06)
--- NOTE | 2020-07-20 14:02 | ECHO ---
DATE OF PROCEDURE: 07/19/2020 Inpatient echocardiographic report quick-look. Age: 75 Gender: Female Height: 64 inches Weight: 374 pounds Body surface area: 2.56 m2 PATIENT LOCATION: Inpatient progressive care unit (PCU), Room 3215. REFERRING PHYSICIAN: Jose Armando DO. INDICATION: Pericardial effusion. COMMENTS: Underlying atrial fibrillation with controlled ventricular response. No intraventricular conduction disturbance. Borderline left ventricular hypertrophy with hyperkinetic wall motion. Prominently dilated left atrium. Moderately dilated right ventricle with hypokinetic right ventricular free wall motion. Prominently dilated right atrium and inferior vena cava (IVC) with absent respiratory collapse in keeping with right heart failure. Normal aortic diameter. Moderate aortic valvular sclerosis with adequate cusp separation. Mild degenerative changes of the mitral valvular apparatus with adequate leaflet excursion and no posterior systolic buckling. Normal appearing tricuspid valve. Small posterior pericardial effusion measuring 0.5-0.8 cm and small anterior effusion 0.2 cm. No evidence of cardiac chamber compression. The above test findings did not appear significantly changed from that described by Dr. Goins 06/28/2020. [facility]
[2020-07-20 14:05] LABS: BILIRUBIN,DIRECT 3.1 MG/DL (0.0-0.2)
[2020-07-20] MEDS ORDERED: MORPHINE 2 MG/ML 1ML VIAL (J2270) IV ONE (14:15)
--- NOTE | 2020-07-20 14:22 | CR ---
DATE OF CONSULTATION: 07/20/2020 CHIEF COMPLAINT: Hypotension. NOTE: History was obtained from mostly the chart and collateral information as patient is lethargic and on BiPAP and unable to provide a clear history. HISTORY OF PRESENT ILLNESS: Ms. Sales is a 75-year-old female with a history of OHS/WAN, noncompliant with BiPAP, with history of chronic hypoxemic and hypercarbic respiratory failure, COPD, diastolic CHF with pulmonary hypertension, hypertension, atrial fibrillation, morbid obesity and hypothyroidism, who presented with complaints of altered mental status in the shelter. Patient has a history of previous admissions for decompensated heart failure and a history of noncompliance with her BiPAP, which will usually precipitate her admissions due to her decompensated heart failure with acute on chronic hypercarbic respiratory failure. Most recently, she was admitted at the end of May with decompensated right-sided heart failure and acute on chronic hypercarbic respiratory failure requiring the initiation of bi-level positive pressure ventilation instead of her CPAP. Patient appears to require BiPAP 24 hours a day. She is able to be on nasal cannula oxygen it seems for meals and is usually on 4 liters of nasal cannula or higher to maintain sats in the 80s. For this current admission, in the ED, patient was found to have worsening of her chronic hypercarbic respiratory failure as well as her hypoxemic respiratory failure. She was placed initially on admission on tabletop BiPAP with improvement in her ABGs. She was also started on Lasix for diuresis. She was thought to be in decompensated heart failure. Patient was noted on her imaging on admission, however, to have evidence of suspected cholecystitis. She was started on broad spectrum antibiotics. Patient was complaining of some abdominal pain. Later in the evening today, patient was noted to have gone into rapid ventricular response with her history of atrial fibrillation. She had heart rates in the 130s to 140s. She was also noted to have worsening hypoxic respiratory failure despite being on her usual tabletop BiPAP. With the 15 liter bleed in her tabletop, she was unable to maintain O2 sats. She was able to have O2 sats only in the 80s. She was therefore transferred to the ICU for initiation of bi-level positive pressure ventilation. Patient was also started on a Cardizem drip for her atrial fibrillation. She did have improvement in her heart rate, but it was held when she became hypotensive. In the ICU, patient was noted to have some worsening lethargy. She was also hypotensive now and had been given small boluses of normal saline fluids without response in her blood pressure. Therefore, she had placement of a right IJ triple lumen central venous catheter placed for vasopressor initiation. PAST MEDICAL/SURGICAL HISTORY: 1. OHS/WAN; not compliant with BiPAP. 2. Chronic hypoxemic respiratory failure and chronic hypercarbic respiratory failure; is almost dependent on BiPAP 24 hours a day. 3. Heart failure with preserved EF, with history of pulmonary hypertension and cor pulmonale. 4. Chronic hypertension. 5. Atrial fibrillation on anticoagulation. 6. Hypothyroidism. 7. Previous history of perforated gastric ulcer. 8. Chronic lower extremity venous stasis skin changes and edema. 9. Morbid obesity. 10. Previous history of nephrolithiasis with temporary stent placement. 11. Osteoarthritis. 12. History of sacral decubitus ulcer. 13. Bilateral knee replacement. 14. KHADAR/BSO. 15. Lumpectomy. 16. Appendectomy. 17. Previous history of skin cancer. HOME MEDICATIONS: 1. Eliquis. 2. Atenolol. 3. Vitamin D. 4. Synthroid. 5. Lutein. 6. Zeaxanthin. 7. Nystatin Powder. 8. Nystatin Cream. 9. Pantoprazole. 10. Potassium Chloride. 11. Senna. 12. Simethicone. 13. Tacrolimus Ointment. 14. Torsemide 20 mg p.o. b.i.d. 15. Tylenol with Codeine p.r.n. 16. Albuterol p.r.n. 17. Dulcolax p.r.n. 18. Milk of Magnesia p.r.n. 19. Zofran p.r.n. 20. Rozerem p.r.n. 21. Fleet enema. ALLERGIES: Penicillin, tape, bee venom and sulfa. FAMILY HISTORY: Mother with history of dementia and nephrolithiasis. SOCIAL HISTORY: No history of smoking or alcohol use. Patient was living in a shelter. PHYSICAL EXAMINATION: VITALS: Temp 102.3, pulse 137 to 116, respirations 34, blood pressure 60s/40s, O2 sat 92% on 90% FIO2. IN: 1.0 liters. OUT: 2.1 liters. Negative 1 liter. GENERAL: Patient is morbidly obese, is lying in the bed, appears lethargic. She is arousable to sternal rub and can say short one word answers at times, but does doze off quickly. HEENT: Normocephalic, atraumatic. There are dry mucous membranes while patient is on BiPAP. Mallampati 3 to 4. NECK: Supple, trachea is midline. Unable to easily assess JVD due to neck habitus with a short thick neck. CARDIOVASCULAR: Tachycardic, irregularly irregular, normal S1, S2, somewhat muffled heart sounds. Unable to appreciate any murmurs. PULMONARY: Distant breath sounds diminished bilaterally. Unable to appreciate any wheezes, rales or rhonchi clearly anteriorly. ABDOMEN: Obese with pitting anasarca and tenderness to palpation in the lower quadrants bilaterally. EXTREMITIES: There is bilateral pitting lower extremity edema with chronic venous stasis skin changes as well as a dressing in place in her lower extremity. LABORATORY DATA: WBC 2.2, hemoglobin 10.9, platelets 151,000. Chemistry: Sodium 136, potassium 4.5, chloride 84, bicarb 46, BUN 18, creatinine 0.72, glucose 88, calcium 9.3. Total bilirubin 2.1, AST/ALT 23 and 14, alkaline phosphatase 106. Troponin x1 negative. Albumin 2.9. Lactic acid increased from 3.9 to 4.1. ABG: pH 7.451, pCO2 65.2, pO2 78.8; improved from a prior pO2 of 46.8 earlier in the day. IMAGING STUDIES: CT chest dated 07/17/2020; film appears to be during inspiration. There is some respiratory motion artifact. There is evidence of moderate right pleural effusion and a small left pleural effusion, which is new from the previous CT from 06/27/2020. There is some atelectasis versus infiltrates in the right lower lobe and some compressive atelectasis in the left lower lobe. There are some areas of ground-glass also noted in the upper lobes, suggestive of pulmonary edema. There is a moderate pericardial effusion, which was not seen on the previous CT from May. There is also severe distention of the gallbladder noted, which is new with a small amount of fluid along the margin, which maybe acute cholecystitis. There is some sludge and gravel-like material in the neck of the gallbladder. Gallbladder ultrasound from 07/19/2019; gallbladder is significantly distended with a markedly thickened gallbladder wall with multiple gallstones and pericholecystic fluid, consistent with acute cholecystitis. The common bile duct is normal. The head of the pancreas and proximal body of the pancreas appear normal. ASSESSMENT AND PLAN: Ms. Sales is a 75-year-old female with a past medical history of chronic hypercarbic and hypoxemic respiratory failure with OHS/WAN; noncompliant with BiPAP, history of heart failure with preserved EF with pulmonary hypertension and core pulmonale, atrial fibrillation on anticoagulation, hypothyroidism and morbid obesity, who presented initially with complaints of lethargy with acute on chronic hypercarbic respiratory failure. Patient initially had improvement with being placed on tabletop BiPAP with settings that she was previously on with her recent admission in May for decompensated heart failure. Patient was also noted on this admission to have evidence of acute cholecystitis and she was being given broad spectrum antibiotics. She was also being diuresed due to suspicion of decompensated right heart failure with her anasarca, pleural effusions and pitting lower extremity edema. Patient was noted today, however, to have worsening hypoxia as well as going into atrial fibrillation with rapid ventricular response. She was transferred to the ICU and placed on noninvasive positive pressure bi-level ventilation here with improvement in her oxygenation. She was also initially started on Diltiazem drip with some improvement in her heart failure. Patient, however, became hypotensive and was unresponsive to small fluid boluses. I placed a right IJ triple lumen and she was started on vasopressor administration with Levophed. History of chronic hypoxemic and hypercarbic respiratory failure: Patient with acute worsening of her hypoxemic and hypercarbic respiratory failure improved now with initiation of bi-level positive pressure ventilation. - Patient's worsening hypoxia; likely was in the setting of her atrial fibrillation with rapid ventricular response given her history of severe pulmonary hypertension and cor pulmonale. Patient is unable to tolerate tachycardia with her pulmonary hypertension, and this likely contributed to worsening of her cardiac output with worsening hypoxia and also with her subsequent hypotension. - Will continue patient on bi-level. Her settings were adjusted to 17/14 with rate of 15 and her FIO2 will be weaned down as tolerated to maintain an O2 sat of 88 to 92% given her chronic hypercarbia. - Will check a repeat ABG on these settings, but she does appear to have improvement in her oxygenation as we have been able to wean down her FIO2 now to 75% at the bedside. - Patient does likely have a component of pulmonary edema contributing as well to her hypoxia, however given her hypotension and suspicion of sepsis, would hold off on further diuretics. Hypotension: Likely in the setting of sepsis as well as from her atrial fibrillation with a rapid ventricular response with decreased cardiac filling and cardiac output. Patients atrial fibrillation with the rapid ventricular response is likely in the setting of her fever and sepsis. - Patient is on Levophed, will continue to titrate to maintain a MAP above 65. If she is requiring high doses of Levophed, would start additional vasopressin. - Patient had increased lactic acidosis in the setting of her shock. Will continue to trend lactic acid. - Patient was given Diltiazem initially, however, it is on hold now with her hypotension. If she is in rapid ventricular response again, can start Amiodarone or Digoxin for rate control. - Patient does have some evidence of decompensated right heart failure clinically. Given her sepsis, however, would be cautious with diuresis. Given her history of pulmonary hypertension, however, would also be cautious on additional fluid administration. - Patient does also have evidence of pericardial effusion on this admission, which is reportedly new compared to her previous CT. Would also get an echocardiogram to rule out any component of hypotension related to her effusion and possible tamponade. She is on anticoagulation now, which she had not been on previously, which potentially may have contributed to possible hemopericardium - Will continue her on Eliquis for now. Patient is on BiPAP, however, and will likely be unable to take p.o. medications. May need to transition her to a Heparin drip for anticoagulation. Sepsis: Thought to be secondary to acute cholecystitis. - Will continue patient on broad spectrum antibiotics with Flagyl and Cefepime. Will continue to monitor her LFTs. - Continue the rest of home medications as per primary team. May need to change some of her p.o. medications to I.V., particularly her Synthroid and hold the other nonessential p.o. medications at this time. DVT prophylaxis: On anticoagulation. GI prophylaxis: Protonix. CODE STATUS: Patient is a DNR/DNI. She does want noninvasive ventilation as well as pressor administration and antibiotics. TOTAL CRITICAL CARE TIME SPENT (NOT INCLUDING PROCEDURES): Approximately 1 hour and 45 minutes. MTDD
[2020-07-20] MEDS ORDERED: ACETAMINOPHEN TAB 650MG DOSE (2X325MG) PO PRN (14:45)
[2020-07-20] MEDS ORDERED: LORazepam 2 MG/ML VIAL IV PRN (14:45)
[2020-07-20] MEDS ORDERED: ONDANSETRON 4MG/2ML VIAL IV PRN (14:45)
[2020-07-20] MEDS ORDERED: SCOPOLAMINE 1MG TRANSDERMAL PATCH TOP PRN (14:45)
[2020-07-20] MEDS ORDERED: MORPHINE 10MG/0.5ML ORAL CONCENTRATE SOLUTION U/D SL PRN (15:00)
[2020-07-20] MEDS ORDERED: MORPHINE 2 MG/ML 1ML VIAL (J2270) IV PRN (15:00)
--- NOTE | 2020-07-20 22:32 | DS.PDOC ---
Discharge Summary General Date of Admission Jul 18, 2020 at 18:35 Date of Discharge Jul 20, 2020 Attending Physician: NOVA DOW DO Specialist/[facility], Dr. Arnold Discharge Summary PROCEDURES PERFORMED DURING STAY: Central line placement ADMITTING DIAGNOSES: 1. Acute on chronic hypercapnic respiratory failure 2. Acute decompensated heart failure, diastolic 3. Bilateral pleural effusion 4. New pericardial effusion 5. Obesity hypoventilation syndrome 6. Morbid obesity 7. Atrial fibrillation DISCHARGE DIAGNOSES: 1. Septic shock secondary to acute cholecystitis 2. Acute on chronic hypercapnic respiratory failure 3. Acute decompensated heart failure, diastolic 4. Bilateral pleural effusion 5. New pericardial effusion 6. Obesity hypoventilation syndrome 7. Morbid obesity 8. Atrial fibrillation COMPLICATIONS/CHIEF COMPLAINT: Acute On Chronic Resp Failure W Hypoxia. HISTORY OF PRESENT ILLNESS: Mrs. Sales is 75 years old female with chronic hypoxemic hypercapnic respiratory failure, COPD, obesity hypoventilation syndrome on BiPAP 24 hours/7 who presented to the hospital for AMS 2/2 acute hypercapnic respiratory failure. According to nursing staff patient developed altered mental status in long term earlier today. Patient uses BiPAP and she was found to have tear on the facemask. In ER, ABG showed pH 7.3, PCO2 107.9, oxygen 57. Patient was placed back on the BiPAP. Her mental status slightly improved. CT chest showed there is moderate atelectasis and infiltrate of several segments right lower lobe with some increased since 06/27/2020 exam. There is a moderate right pleural effusion similar to the previous exam. New s mall left pleural effusion. There is moderate cardiomegaly. There is now a moderate pericardial effusion which is new since May. HOSPITAL COURSE: Mrs. Sales was diuresed during her hospitalization. The following day, her mentation improved. She asked me why she was in the hospital and what happened. They were able to wean her down to [address] chest had demonstrated cholecystitis, performed a ultrasound of the gallbladder to further evaluate. At that time, she did not have any fever, leukocytosis, or elevation of total bilirubin. Her AST and ALTs were normal. She was not compla ining of nausea, pain with eating, or abdominal pain. I touched base with general surgery. Since she clinically did not look like she's having cholecystitis. It could be monitored at this time. Later that afternoon, patient was becoming cyanotic. Repeat ABG demonstrated improving hypercapnia, but wo rsening hypoxia. Oxygen was increased from 8 L to 15 L. Diuretics were stopped. She was started on cefepime and metronidazole as well as given fluids. Later that evening, she went into septic shock. She was placed in the ICU for a central line and IV Levophed. The following day, she required 2 pressors. I spoke with general surgery, she is not a candidate for surgery but we may be able to do a cholecystostomy tube. was present and we had a family discussion with patient. We discuss about a cholecystostomy tube. She did not want cholecystostomy tube. We discussed hospice. She wanted to be made comfortable. With present we filled out a new MOLST, making her [employer]. She later that evening at 1845. was present when it occurred. Vital Signs/I&Os Vital Signs Date Time Temp Pulse Resp B/P (MAP) Pulse Ox O2 Delivery O2 Flow Rate FiO2 07/20/20 14:30 119 36 108/51 (70) 90 Nasal Cannula 5.0 07/20/20 14:15 55 07/20/20 13:30 101.0 I&O- Last 24 Hours up to 6 AM 07/20/20 06:00 Intake Total 1202.2 ml Output Total 1000 ml Balance 202.2 ml Laboratory Data Labs 24H Laboratory Tests 2 07/19/20 23:42: Troponin I < 0.02 07/19/20 23:58: Blood Gas Bicarbonate Standard 41.6H, Arterial Blood pH 7.435, Arterial Blood Partial Pressure CO2 68.5*H, Arterial Blood Partial Pressure O2 82.1, Arterial Blood Total CO2 47.1H, Arterial Blood HCO3 45.0H, Arterial Blood Base Excess 17.6H, Arterial Blood Oxygen Saturation 96.5 07/20/20 00:43: Bedside Glucose (Misc Panel) 95 07/20/20 03:16: Lactic Acid Level 2.5*H 07/20/20 04:32: Nucleated Red Blood Cells % (auto) 0.3H, Anion Gap 1L, Glomerular Filtration Rate 44.6, Calcium Level 8.2L, Total Bilirubin 4.7#H, Direct Bilirubin 3.1H, Aspartate Amino Transf (AST/SGOT) 193H, Alanine Aminotransferase (ALT/SGPT) 65, Alkaline Phosphatase 436H, Total Protein 5.7L, Albumin 2.4L, Albumin/Globulin Ratio 0.7L 07/20/20 05:35: Blood Gas Bicarbonate Standard 40.0H, Arterial Blood pH 7.409, Arterial Blood Partial Pressure CO2 71.0*H, Arterial Blood Partial Pressure O2 109.1H, Arterial Blood Total CO2 46.1H, Arterial Blood HCO3 43.9H, Arterial Blood Base Excess 1 6.1H, Arterial Blood Oxygen Saturation 98.6 07/20/20 06:50: Bedside Glucose (Misc Panel) 106 07/20/20 07:48: Lab Scanned Report Miscellaneous Lab 07/20/20 08:51: Lactic Acid Followup at 4 Hours 2.4*H 07/20/20 11:45: Bedside Glucose (Misc Panel) 110 07/20/20 20:08: Bedside Glucose (Misc Panel) 121H CBC/BMP Laboratory Tests 07/20/20 04:32 FSBS Laboratory Tests Test 07/20/20 00:43 07/20/20 06:50 07/20/20 11:45 07/20/20 20:08 Range/Units Bedside Glucose (Misc Panel) 95 106 110 121 83-110 MG/DL Microbiology Microbiology 07/19/20 Blood Culture - Preliminary, Resulted 07/19/20 Urine Culture, Received Pending Discharge Medications Scheduled Apixaban (Eliquis) 5 Mg Tablet, 5 MG PO BID, (Reported) Atenolol (Atenolol) 50 Mg Tablet, 75 MG PO DAILY, (Reported) HOLD IF SBP<100 Dimethicone (Proshield Plus) 113 Gm Oint...g., 1 DOSE EXT TID, (Reported) APPLIES TO FEET MORNING, EVENING AND NIGHT Ergocalciferol (Vitamin D2) (Vitamin D2) 50,000 Units Cap, 50,000 UNITS PO QWEEK, (Reported) SATURDAYS Levothyroxine Sodium (Synthroid) 175 Mcg Tablet, 175 MCG PO DAILY, (Reported) PT TAKES BRAND NAME SYNTHROID Lutein/Zeaxanthin (Lutein-Zeaxanthin 20-1 mg Sfgl) 1 Each Capsule, 1 CAP PO DAILY, (Reported) Nystatin (Nystatin Powder) 15 Gm Powder, 1 DOSE TOP BID, (Reported) APPLY TO CREASES ON LEGS AND UNDER BREASTS Nystatin (Nystatin) 15 Gm Cream..g., 1 DOSE TOP DAILY, (Reported) USES ON LEGS Pantoprazole Sodium (Pantoprazole Sodium) 40 Mg Tablet.dr, 40 MG PO DAILY, (Reported) Potassium Chloride (Potassium Chloride) 20 Meq Tab.er.prt, 20 MEQ PO TID, (Reported) Sennosides/Docusate Sodium (Senna-S Tablet) 1 Each Tablet, 1 TAB PO DAILY, (Reported) Simethicone (Simethicone) 80 Mg Tab.chew, 80 MG PO BID, (Reported) 1000, 1900 Tacrolimus (Protopic) 0.1 % Oin, 1 DOSE EXT Q2D, (Reported) USES ON LEGS AT NIGHT Torsemide (Torsemide) 20 Mg Tablet, 20 MG PO BID, (Reported) 0800, 1400 Scheduled PRN Acetaminophen (Tylenol) 325 Mg Tablet, 650 MG PO Q4H PRN for PAIN / FEVER, (Reported) Acetaminophen with Codeine (Acetaminophen-Cod #3 Tablet) 1 Each Tab, 1 TAB PO DAILY PRN for PAIN, (Reported) Albuterol Sulfate (Ventolin Hfa) 108 Mcg/Act Aer, 2 PUFFS INH Q4H PRN for SHORTNESS OF BREATH, (Reported) Bisacodyl (Dulcolax) 10 Mg Supp.rect, 10 MG TN DAILY PRN for CONSTIPATION, (Reported) Milk Of Magnesia (Milk of Magnesia) 2,400 Mg/10 Ml Oral.susp, 10 ML PO DAILY PRN for CONSTIPATION, (Reported) Ondansetron HCl (Zofran) 4 Mg Tablet, 4 MG PO Q8H PRN for NAUSEA, (Reported) Ramelteon (Rozerem) 8 Mg Tablet, 8 MG PO QHS PRN for INSOMNIA, (Reported) Sodium Phosphate,[place]-Dibasic (Fleet Enema) 133 Ml Enema, 1 BLU TN DAILY PRN for CONSTIPATION, (Reported) Allergies Coded Allergies: Penicillins (Verified Allergy, Intermediate, localized reaction at injection site, 06/24/20) TAPE (Verified Allergy, Intermediate, PLASTIC TAPE - RASH, 06/24/20) bee venom protein (honey bee) (Verified Allergy, Intermediate, localized swelling at site, 06/24/20) sulfamethoxazole (Verified Allergy, Unknown, 06/24/20) NOVA DOW DO Jul 20, 2020 22:32
--- NOTE | 2020-07-21 14:32 | IPNPDOC ---
Text Note Date of Service The patient was seen on 07/20/20. NOTE SUBJECTIVE : Continued to require BIPAP 21/04 which is her baseline with repo rtedly small breaks to eat/drink. She is obtunded but able to answer some questions with one word answers and respond to painful stimuli O: GENERAL: The patient as of this morning requires to stay on the Bi Pap at all times today. She is saturating 95% on on the Bi Pap settings of . She is not usi ng the accessory muscles of respiration . She is not responding actively to the questions asked but is responsive to pain. She is openning her eyes spontaneously. HEENT:Normocephalic, Atraumatic, mucous membranes moist, No icterus, Pallor +, No discharge from ear nose or throat. The patient is intubated .The patient has an orogastric tube passed through her mouth. PULMONARY: The breath sounds are clear to auscultation with B/L basilar crackles , no wheezing heard. CVS: Heart sounds are normal . No murmurs heard. ABDOMEN: A severly obese abdomen, tender on palpation over the right upper kenan drant. Non distended. Normal bowel sounds heard SKIN: Warm ad well perfused. some age related bruising seen on the bony prominences. EXTREMITIES: B/l pitting pedal edema 3+ . Pulses( radial and dorsals pedis) +2. NEURO: Pt is lethargic and unable to answer questions . Orientation could not be assessed. IMAGING: >CT Angio: 07/19/2020. IMPRESSION: 1. There is moderate atelectasis and infiltrate of several segments right lower lobe with some increased since 06/27/2020 exam. 2. There is a moderate right pleural effusion similar to the previous exam. 3. New small left pleural effusion. 4. There is moderate cardiomegaly. 5. There is now a moderate pericardial effusion which is new since May. 6. Severe distension of the gallbladder 7.5 cm consistent with hydrops and new. Small amount of fluid along the margin of the gallbladder and this may be the result of cholecystitis. 7. Sludge and gravel-like material in the neck of the gallbladder >ECHO (06/26/2020): CONCLUSIONS: 1. Study is of markedly limited technical quality corresponding to body habitus. Uncertain underlying rhythm, most likely atrial fibrillation. 2. Normal left ventricle (LV) size with moderate left ventricular hypertrophy and overall probably normal systolic function. 3. Dilated hypokinetic right ventricle. 4. No hemodynamically significant valvular disease. 5. Very high central venous pressure and at least moderate pulmonary hypertension. ASSESSMENT &PLAN: >Acute on Chronic Hypercapneic and hypoxemia Respiratory failure due to non compliance/malfunctioning of the use of her BIPAP for her history of WAN/OHS and COPD: -The patient is on a Bipap reportedly 24x7. -Patient currently on BIPAP at . -Our goal is to keep the patient in the range of 88%-92%. >Acute decompensated heart failure(diastolic): -Elevated BNP levels -Last ECHO done on 06/26/20. -There is moderate percardial effusion on her CT angio. -Pt Aggressively diuresed. -A repeat ECHO ordered to review status and to assess new pericardial effusion. >Atrial fibrillation with RVR: -The patient is on a Cardizem drip. -On anti-coagulation. Elliquis 2.5 mg BID. - >Septic shock: -The patrient has a high white count of 19.2 -Likely infectipoius source is gall bladder on the basis of USG -CT abdomen ordered to further clarify the source. -Pt is on Ceftriaxone and Metronidazole. - - VS,Fishbone, I+O VS, Fishbone, I+O Laboratory Tests 07/19/20 13:24 07/19/20 18:04 07/19/20 18:29 07/20/20 04:32 Vital Signs Date Time Temp Pulse Resp B/P (MAP) Pulse Ox O2 Delivery O2 Flow Rate FiO2 07/20/20 08:42 101 30 83/45 95 NIPPV (BIPAP/CPAP) 70 07/20/20 04:46 98.6 07/19/20 20:25 15.0 I&O- Last 24 Hours up to 6 AM 07/20/20 06:00 Intake Total 1202.2 ml Output Total 1000 ml Balance 202.2 ml GME ATTESTATION GME ATTESTATION My faculty preceptor for this patient encounter was physically present during the encounter and was fully available. All aspects of the patient interview, examination, medical decision making process, and medical care plan development were reviewed and approved by the faculty preceptor. The faculty preceptor is aware and concurs with the plan as stated in the body of this note and will attest to such by his/her cosignature. Stu May MD Jul 20, 2020 11:10 SANTY RICHARDSON MD Aug 02, 2020 07:41
== END 2020-07-20 18:15 | disposition expired | DRG 189 ==
LOC: M ED 19:54 → M ED INP 19:55 → ENRESERV 07-18 01:14 → CANRESERV 07-18 01:14 → ENRESERV 07-18 01:19 → M PCU 07-18 02:56 → OBSVTOIN 07-18 18:35 → M ICU 07-19 21:10
PROVIDERS: ADMIT Internal Medicine; ATTEND Internal Medicine
PROC: 02HV33Z Insertion of Infusion Device into Superior Vena Cava, Percutaneous Approach (ICD-10-PCS; principal; 2020-07-19)
DX: J96.21 Acute and chronic respiratory failure with hypoxia (principal); I50.33 Acute on chronic diastolic (congestive) heart failure; A41.9 Sepsis, unspecified organism; R65.21 Severe sepsis with septic shock; E66.2 Morbid (severe) obesity with alveolar hypoventilation; Z68.44 Body mass index [BMI] 60.0-69.9, adult; I31.3 Pericardial effusion (noninflammatory); J90 Pleural effusion, not elsewhere classified; E87.2 Acidosis; K81.0 Acute cholecystitis; Z51.5 Encounter for palliative care; Z66 Do not resuscitate; I27.29 Other secondary pulmonary hypertension; I11.0 Hypertensive heart disease with heart failure; I48.91 Unspecified atrial fibrillation; E03.9 Hypothyroidism, unspecified; I87.2 Venous insufficiency (chronic) (peripheral); R26.81 Unsteadiness on feet; Z99.81 Dependence on supplemental oxygen; Z87.442 Personal history of urinary calculi; Z96.653 Presence of artificial knee joint, bilateral; Z90.49 Acquired absence of other specified parts of digestive tract; Z85.828 Personal history of other malignant neoplasm of skin; Z79.899 Other long term (current) drug therapy; Z88.0 Allergy status to penicillin; Z91.030 Bee allergy status; Z88.2 Allergy status to sulfonamides; Z79.01 Long term (current) use of anticoagulants; Z91.048 Other nonmedicinal substance allergy status

== ENCOUNTER → 2020-07-17 | Outpatient (REF) ==
[2020-07-17 14:05] LABS: HEMATOCRIT 42.5 % (36.0-47.0); HEMOGLOBIN 11.8 g/dl (12.0-15.5); MEAN CORPUSCULAR HEMOGLOBIN 29.8 pg (27.0-33.0); MEAN CORPUSCULAR HGB CONC 27.8 g/dl (32.0-36.5); MEAN CORPUSCULAR VOLUME 107.3 fl (80.0-96.0); PLATELET COUNT, AUTOMATED 213 10^3/uL (150-450); RED BLOOD COUNT 3.96 10^6/uL (4.00-5.40); WHITE BLOOD COUNT 6.8 10^3/uL (4.0-10.0)
== END ==
LOC: SKLAB5 13:15
DX: Z87.19 Personal history of other diseases of the digestive system (principal)